=== PATIENT | male | born 1975 | race Caucasian/White ===

== ENCOUNTER 2018-01-15 00:53 | Emergency (ER) | payer MEDICARE, SELFPAY ==
[2018-01-15 00:56] VITALS: BP 153/97; PULSE 70; RESP 17; TEMP 36.5; O2SAT 98; BMI 24.7
--- NOTE | 2018-01-15 01:05 | CT_ITS ---
STUDY: CT BRAIN WITHOUT CONTRAST REASON FOR EXAM: Male, 42 years old. Trauma RADIATION DOSAGE (If Supplied By Facility): CTDIvol = ( 44.99 ) mGy, DLP = ( 812.98 ) mGycm TECHNIQUE: Transaxial CT imaging of the brain was performed without administration of intravenous contrast material. Individualized dose optimization techniques were used for this CT. COMPARISON: None. FINDINGS: Normal soft tissue structures. Normal calvarium. Normal size ventricles and extra-axial spaces for the patient's age. Normal white matter tracts of the cerebral hemispheres. Normal basal ganglia and thalami. Normal brainstem. Normal cerebellum. There is no intracranial hemorrhage. There are no findings of an acute ischemic infarction. Normal visualized paranasal sinuses. CT/Brain/Head without Contrast IMPRESSION: Normal unenhanced CT scan of the brain. No acute findings in the brain Electronically Signed: Elliott Craft, at 2:47 EDT Tel , Service support ,
--- NOTE | 2018-01-15 01:06 | ED.VIS.GEN ---
History of Present Illness Chief Complaint: Head Injury Informant: Family Limited: - - nonverbal Onset: Hours - 1 Narrative: Family states patient tripped going down some steps, he hit his head on a metal air vent grade, sustaining a laceration to the right temporal scalp. There was no loss of consciousness. No headache, vomiting. Patient denies any significant pain right now. No other apparent injuries. Per parents, at baseline mental status at this time. Last tetanus shot was less than 5 yrs ago. No seizure activity today, or after injury tonight. - Past Medical History (1) Seizure disorder Status: Acute Past Medical History - Allergies and Home Meds Allergies/Adverse Reactions: Allergies No Known Allergies Allergy (Verified 01/15/18 00:54) Home Medications: Home Medications Medication Instructions Recorded Divalproex Sodium [Depakote] 1,000 mg PO DAILY 01/04/14 Divalproex Sodium [Depakote] 1,500 mg PO QHS 01/04/14 Klonopin 0.5 mg PO BID 01/04/14 Phenobarbital 30 mg PO BID 01/04/14 Atenolol 50 mg PO BID 01/15/18 Levothyroxine PO DAILY 01/15/18 Primary Care Physician: Parvin Callahan MD [Primary Care Provider] - Lives: With Family Smoking Status: Never smoker Review of Systems ROS: Unable to Obtain Skin: Reports: Wounds - right scalp laceration Physical Exam Vital Signs/Narrative: Vital Signs Temp Pulse Resp BP Pulse Ox 01/15/18 00:56 97.7 F L 70 17 153/97 H 98 Inital Vital Signs reviewed: Yes General: Well nourished, Well developed Head: Normocephalic, Trauma - R temporal scalp/forehead laceration, full thickness to periosteum, approx 7cm. clean. minimal bleeding. no skull fx or crepitance/depression., Tenderness - at laceration Eyes: Perrl, EOMI ENT: Moist mucous membranes, TM's clear. Negative for: Sinus tenderness - midface stable` Cardiovascular: Regular rate, Regular rhythm, No murmurs Respiratory: No distress, CTA bilaterally, Chest nontender Abdomen: Soft, Nontender, Nondistended, Normal bowel sounds Back: Nontender, Normal Inspection Extremities: Nontender, No edema, - - FROM x all 4 ext's w/o apparent pain Skin: Normal color, Trauma - R scalp/forehead laceration. see HEENT. Neurological: Alert, Cranial nerves II-XII grossly intact, Normal Strength, Normal Sensation, Normal Gait, - - nonverbal Psychological: Normal affect Diagnostic/Tx/Re-eval Impressions Brain CT 01/15/18 01:05 IMPRESSION: Normal unenhanced CT scan of the brain. No acute findings in the brain Electronically Signed: Elliott Craft, at 2:47 EDT Tel , Service support , - Medical Decision Making Patient remained clinically at baseline and did well without vomiting. CT unremarkable for acute injury. Laceration was repaired, patient tolerated well. Advised follow-up in about 1 week for removal of sutures and deep. Procedures - Lacerations R scalp/forehead Length: 7 cm Depth: Sub Q Shape: Linear - curvilinear, clean Prep: Sterile Conditions, Chlorhexadine Laceration Repair: Lidocaine with epi - 5cc. irrigated w/ sterile NS under pressure. Irrigated (ml): 60 Number of Sutures/[place]: 10 - total Suture Information: Simple, 5-0 - #5, - - skin deep #5 Comment: tolerated well. ED Disposition - Plan for ED Patient: Disposition: Home or Assisted Living Chief Complaint: Head Injury Diagnosis: Closed head injury without concussion, Scalp laceration Instructions: ED Head Injury Closed, ED Laceration Scalp Stitch Or Stap Referrals: Parvin Callahan MD [Primary Care Provider] - 7 Days for suture removal
--- NOTE | 2018-01-15 01:13 | ED.DCSUM_ITS ---
History of Present Illness Chief Complaint: Head Injury Informant: Family Limited: - - nonverbal Onset: Hours - 1 Narrative: Family states patient tripped going down some steps, he hit his head on a metal air vent grade, sustaining a laceration to the right temporal scalp. There was no loss of consciousness. No headache, vomiting. Patient denies any significant pain right now. No other apparent injuries. Per parents, at baseline mental status at this time. Last tetanus shot was less than 5 yrs ago. No seizure activity today, or after injury tonight. - Past Medical History (1) Seizure disorder Status: Acute Past Medical History - Allergies and Home Meds Allergies/Adverse Reactions: Allergies No Known Allergies Allergy (Verified 01/15/18 00:54) Home Medications: Home Medications Medication Instructions Recorded Divalproex Sodium [Depakote] 1,000 mg PO DAILY 01/04/14 Divalproex Sodium [Depakote] 1,500 mg PO QHS 01/04/14 Klonopin 0.5 mg PO BID 01/04/14 Phenobarbital 30 mg PO BID 01/04/14 Atenolol 50 mg PO BID 01/15/18 Levothyroxine PO DAILY 01/15/18 Primary Care Physician: Parvin Callahan MD [Primary Care Provider] - Lives: With Family Smoking Status: Never smoker Review of Systems ROS: Unable to Obtain Skin: Reports: Wounds - right scalp laceration Physical Exam Vital Signs/Narrative: Vital Signs Temp Pulse Resp BP Pulse Ox 01/15/18 00:56 97.7 F L 70 17 153/97 H 98 Inital Vital Signs reviewed: Yes General: Well nourished, Well developed Head: Normocephalic, Trauma - R temporal scalp/forehead laceration, full thickness to periosteum, approx 7cm. clean. minimal bleeding. no skull fx or crepitance/depression., Tenderness - at laceration Eyes: Perrl, EOMI ENT: Moist mucous membranes, TM's clear. Negative for: Sinus tenderness - midface stable` Cardiovascular: Regular rate, Regular rhythm, No murmurs Respiratory: No distress, CTA bilaterally, Chest nontender Abdomen: Soft, Nontender, Nondistended, Normal bowel sounds Back: Nontender, Normal Inspection Extremities: Nontender, No edema, - - FROM x all 4 ext's w/o apparent pain Skin: Normal color, Trauma - R scalp/forehead laceration. see HEENT. Neurological: Alert, Cranial nerves II-XII grossly intact, Normal Strength, Normal Sensation, Normal Gait, - - nonverbal Psychological: Normal affect Diagnostic/Tx/Re-eval Impressions Brain CT 01/15/18 01:05 IMPRESSION: Normal unenhanced CT scan of the brain. No acute findings in the brain Electronically Signed: Elliott Craft, at 2:47 EDT Tel , Service support , - Medical Decision Making Patient remained clinically at baseline and did well without vomiting. CT unremarkable for acute injury. Laceration was repaired, patient tolerated well. Advised follow-up in about 1 week for removal of sutures and deep. Procedures - Lacerations R scalp/forehead Length: 7 cm Depth: Sub Q Shape: Linear - curvilinear, clean Prep: Sterile Conditions, Chlorhexadine Laceration Repair: Lidocaine with epi - 5cc. irrigated w/ sterile NS under pressure. Irrigated (ml): 60 Number of Sutures/[place]: 10 - total Suture Information: Simple, 5-0 - #5, - - skin deep #5 Comment: tolerated well. ED Disposition - Plan for ED Patient: Disposition: Home or Assisted Living Chief Complaint: Head Injury Diagnosis: Closed head injury without concussion, Scalp laceration Instructions: ED Head Injury Closed, ED Laceration Scalp Stitch Or Stap Referrals: Parvin Callahan MD [Primary Care Provider] - 7 Days for suture removal
[2018-01-15] MEDS: BACITRACIN 15 GM Tube 1 APPLIC TOPICAL (02:26)
[2018-01-15 03:38] VITALS: BP 119/77; PULSE 66; RESP 15
== END 2018-01-15 04:04 | disposition home or self-care (01) ==
PROVIDERS: Emergency Provider Emergency Medicine; Family Provider Internal Medicine; PCP Internal Medicine
DX: S01.01XA Laceration without foreign body of scalp, initial encounter (principal); S09.90XA Unspecified injury of head, initial encounter; W10.9XXA Fall (on) (from) unspecified stairs and steps, initial encounter; Y93.9 Activity, unspecified; Y92.9 Unspecified place or not applicable; G40.909 Epilepsy, unspecified, not intractable, without status epilepticus; Z79.899 Other long term (current) drug therapy
CPT/HCPCS: 12002; 70450; 99283

== ENCOUNTER → 2018-07-08 15:48 | Outpatient (CLI) | payer MEDICARE, SELFPAY ==
[2018-07-08 17:23] LABS: AST(SGOT) 16 U/L (15-37); Alanine Aminotransfer ALT/SGPT 21 U/L (16-61); Albumin, Serum 3.3 g/dL (3.2-5.0); Alkaline Phosphatase 68 U/L (45-117); Anion Gap 11 (5-15); BUN 11 mg/dL (7-18); BUN/Creat Ratio 14.2 RATIO (10-20); Bilirubin, Direct 0.06 mg/dL (0.00-0.30); Calcium,Total 8.5 mg/dL (8.5-10.1); Chloride 106 mmol/L (98-107); Creatinine, Serum 0.77 mg/dL (0.70-1.30); EST Glomerular Filtration Rate 117 mL/min (>60); Est Glom Filt Rate - Afr Amer 142 mL/min (>60); Globulin 4.4 g/dL (2.2-4.2); Glucose 103 mg/dL (74-106); Magnesium 1.8 mg/dL (1.6-2.6); Phosphorus 1.7 mg/dL (2.5-4.9); Potassium 4.3 mmol/L (3.5-5.1); Protein, Total 7.7 g/dL (6.4-8.2); Sodium Level 140 mmol/L (136-145)
[2018-07-08 17:25] LABS: Valproic Acid (Depakene) Level 100 ug/mL (50-100)
== END ==
PROVIDERS: Family Provider Internal Medicine; PCP Internal Medicine; Referring Provider Nurse Practitioner Acute Care; Visit Provider Nurse Practitioner Acute Care
DX: R56.9 Unspecified convulsions (principal)
CPT/HCPCS: 36415; 80048; 80076; 80164; 80184; 82140; 83735; 84100

== ENCOUNTER → 2018-08-08 13:26 | Outpatient (CLI) | payer MEDICARE, SELFPAY | PROVIDERS: Family Provider Internal Medicine; PCP Internal Medicine; Referring Provider Clinical Nurse Specialist Acute Care; Visit Provider Clinical Nurse Specialist Acute Care | DX: R56.9 Unspecified convulsions (principal) | CPT/HCPCS: 36415; 82140 ==

== ENCOUNTER → 2019-03-30 | Outpatient (CLI) | payer MEDICARE, SELFPAY ==
[2019-03-23 16:04] VITALS: BMI 22.4
--- NOTE | 2019-03-30 16:49 | CT_ITS ---
HISTORY: Marfan syndrome, enlarged aorta, intermittent chest pain COMPARISON: None. TECHNIQUE: Helical CT axial images of the thorax with 100 ml of Isovue 300 intravenous contrast. Multiplanar reconstruction. A radiation dose optimization technique was used for this scan. # of images incl. paperwork: 500 FINDINGS: LUNGS: The lung parenchyma is clear. No pulmonary masses or suspicious nodules. MEDIASTINUM: No abnormally enlarged mediastinal or hilar lymph nodes. PLEURA: No pleural effusion. No pneumothorax. CARDIAC: Normal heart size. No pericardial effusion. VASCULAR: The aortic root is dilated measuring 5.1 cm. No dissection of the aortic root. Ascending aorta is normal in caliber measuring 3.3 cm. Aortic arch and descending thoracic aorta are normal in caliber. No dissection. The pulmonary vasculature demonstrates no significant dilatation. CHEST WALL: Chest wall is intact. No abnormal axillary lymphadenopathy. BONES: No suspicious osseous lytic or blastic lesions seen. UPPER ABDOMEN: The visualized upper abdomen demonstrates no acute abnormality. CT/Chest WITH Contrast IMPRESSION: 1. Dilated aortic root measuring 5.1 cm without dissection. 2. Remainder of the thoracic aorta is normal in caliber without dilatation, aneurysm or dissection. 3. No acute cardiopulmonary disease. Individualized dose optimization techniques were used for this CT. at 2003 Reported and signed by: Dhaval Redding MD Electronically Signed: Dhaval Redding MD at 20:01 EDT Tel , Service support ,
== END | disposition home or self-care (01) ==
PROVIDERS: Family Provider Internal Medicine; PCP Internal Medicine; Referring Provider Internal Medicine Cardiovascular Disease; Visit Provider Internal Medicine Cardiovascular Disease
DX: Q87.410 Marfan syndrome with aortic dilation (principal)
CPT/HCPCS: 71260; Q9967

== ENCOUNTER → 2019-04-13 | Outpatient (CLI) | payer MEDICARE, SELFPAY ==
[2019-03-23 16:04] VITALS: BMI 22.4
--- NOTE | 2019-04-13 14:48 | ECHOD_ITS ---
Reason For Study: THORACIC AA Procedure This was a 2D Doppler, Color Flow transthoracic echocardiogram. The study was technically difficult. Exam performed in department. Left Ventricle Normal LV size. Left ventricular systolic function is normal. The estimated ejection fraction is 60 %. Transmitral doppler flow suggestive of impaired relaxation of left ventricle. No regional wall motion abnormalities noted. Right Ventricle Normal RV size. Normal systolic function. Atria Normal left atrium. Normal right atrium. No doppler evidence for ASD. Mitral Valve There is no mitral annular calcification. Moderate diffuse mitral valve thickening. Mild mitral valve prolapse. Mild (1+) mitral valve insufficiency. Tricuspid Valve Normal tricuspid valve. Mild tricuspid valve insufficiency. Right ventricular systolic pressure estimated to be 17 mmHg. Aortic Valve Trisinus/trileaflet aortic valve. Normal aortic valve. Trivial aortic valve insufficiency. Pulmonic Valve The pulmonic valve is not well visualized. Trivial pulmonic valve insufficiency. Great Vessels Moderately dilated aortic root. Pericardium/Pleural No pericardial effusion. MMode/2D Measurements & Calculations LVIDd: 4.7 cm IVSd: 0.58 cm Ao root diam: 3.4 cm LVIDs: 3.2 cm LVPWd: 0.77 cm RVDd: 3.3 cm FS: 32.3 % LAV(MOD-bp): 38.3 ml LVAd ap4: 34.4 cm2 SV(MOD-sp4): 62.3 ml LAV(MOD-bp) Indexed: 18.7 ml/m2 EDV(MOD-sp4): 111.2 ml LAV(MOD-sp2): 40.3 ml EDV(sp4-el): 116.3 ml LAV(MOD-sp4): 34.6 ml LVAs ap4: 20.4 cm2 ESV(MOD-sp4): 48.9 ml ESV(sp4-el): 49.2 ml EF(MOD-sp4): 56.0 % EF(sp4-el): 57.7 % SV(sp4-el): 67.1 ml LA A4 area: 13.9 cm2 LA dimension(2D): 3.2 cm RA A4 area: 12.8 cm2 Time Measurements MV dec time: 0.32 sec Doppler Measurements & Calculations MV E max kev: 49.6 cm/sec Lat Peak E' Kev: 6.7 cm/sec Med Peak E' Kev: 4.6 cm/sec MV A max kev: 61.9 cm/sec E/E' lat: 7.4 E/E' med: 10.8 MV E/A: 0.80 Ao V2 max: 107.3 cm/sec LV V1 max: 87.7 cm/sec PA V2 max: 83.6 cm/sec Ao max P.6 mmHg LV V1 max P.1 mmHg PI end-d kev: 82.0 cm/sec TR max kev: 185.7 cm/sec TR max P.8 mmHg Interpretation Summary The study was technically difficult. Left ventricular systolic function is normal. The estimated ejection fraction is 60 %. Mild mitral valve prolapse. Moderate diffuse mitral valve thickening. Mild (1+) mitral valve insufficiency. Mild tricuspid valve insufficiency. Trivial aortic valve insufficiency. Trivial pulmonic valve insufficiency. Moderately dilated aortic root. Right ventricular systolic pressure estimated to be 17 mmHg. Transmitral doppler flow suggestive of impaired relaxation of left ventricle Ordering Physician: Phoenix Pierre Referring Physician: SRAANYA CASPER Performed By: Vika Pantoja, RDCS, RVT
== END | disposition home or self-care (01) ==
LOC: CVS 14:47
PROVIDERS: Family Provider Internal Medicine; PCP Internal Medicine; Referring Provider Internal Medicine Cardiovascular Disease; Visit Provider Internal Medicine Cardiovascular Disease
DX: Q87.410 Marfan syndrome with aortic dilation (principal)
CPT/HCPCS: 93306

== ENCOUNTER 2019-06-21 22:53 | Emergency (ER) | payer MEDICARE, SELFPAY ==
[2019-03-23 16:04] VITALS: BMI 22.4
[2019-06-21 22:54] VITALS: BP 107/71; PULSE 101; RESP 18; TEMP 36.6; O2SAT 95; BMI 26.6
--- NOTE | 2019-06-21 23:22 | RAD_ITS ---
STUDY: X-RAY CHEST REASON FOR EXAM: Male, 43 years old. Fever and chills. TECHNIQUE: Single AP portable view of the chest. COMPARISON: CT of the chest dated March 30, 2019. FINDINGS: The lungs are clear and expanded. There is no demonstrated pleural abnormality. Normal size heart. Normal mediastinum and matthew. Normal visualized pulmonary arteries. Normal visualized aortic arch and descending thoracic aorta. Normal visualized thoracic spine. There is deformity of the right clavicle with widening of the right acromion clavicular joint suggesting possible sequelae of previous fracture and acromioclavicular joint separation. There is no demonstrated abnormality of the visualized soft tissue structures of the upper abdomen. RAD/Chest 1 View (Portable) IMPRESSION: No radiographic evidence of acute cardiopulmonary disease. Electronically Signed: Yola Foster MD at 0:28 EDT , Service support ,
--- NOTE | 2019-06-21 23:23 | ED.VIS.GEN ---
History of Present Illness Chief Complaint: General Illness Informant: Family Onset: Today Narrative: Brought by EMS from home, parents are here, history of disability physically and mentally. History of seizure disorder on medications. Mother reports check on patient is evening he was shaking all over, she denies any cough. No recent vomiting or diarrhea. He wears depends pads, however can urinate and in the past was able to give samples. Unclear if any UTIs in the past. States he felt warm. Mother reports he communicates when he wants to. Past Medical History - Allergies and Home Meds Allergies/Adverse Reactions: Allergies No Known Allergies Allergy (Verified 06/21/19 22:59) Primary Care Physician: Parvin Callahan MD [Primary Care Provider] - Smoking Status: Never smoker Review of Systems General: Reports: Chills, Fever. Denies: Sweats Eyes: Denies: Visual changes - bilaterally, Diplopia ENT: Denies: Rhinorrhea, Sore throat Cardiovascular: Denies: Chest pain, Palpitations Respiratory: Denies: Dyspnea, Cough, Dyspnea on exertion Gastrointestinal: Denies: Abdominal pain, Nausea, Vomiting, Diarrhea, Melena, Hematochezia Genitourinary: Denies: Dysuria, Hematuria, Frequency Musculoskeletal: Denies: Back pain, Extremity Pain Skin: Denies: Rash, Wounds Neurological: Denies: Headache, Weakness, Numbness Physical Exam Vital Signs/Narrative: Vital Signs Temp Pulse Resp BP Pulse Ox 06/21/19 22:54 97.8 F 101 H 18 107/71 95 Inital Vital Signs reviewed: Yes General: Unkempt, - - Nontoxic, moving all 4 extremities, not communicating at this time. Head: Normocephalic, Atraumatic ENT: Dry mucous membranes Cardiovascular: Regular rate, No murmurs, Tachycardia Respiratory: No distress, CTA bilaterally Abdomen: Soft, Nontender, Nondistended Extremities: Nontender, - - Minimal lower extremity edema with stockings. Skin: Normal color, No rash Neurological: - - Follows commands, moves all 4 extremities. Diagnostic/Tx/Re-eval Clinical Impression(s) from Imaging Studies Chest X-Ray 06/21/19 23:22 IMPRESSION: No radiographic evidence of acute cardiopulmonary disease. Electronically Signed: Yola Foster MD at 0:28 EDT , Service support , Abnormal Lab Results 06/22/19 06/22/19 06/22/19 00:00 00:00 01:10 WBC 7.8 RBC 4.43 L Hgb 14.6 Hct 42.1 MCV 95.0 H MCH 33.0 H MCHC 34.7 RDW Std Deviation 42.9 RDW Coeff of Bel 12.4 Plt Count 184 MPV 10.1 Immature Gran % (Auto) 0.500 Neut % (Auto) 87.7 H Lymph % (Auto) 6.3 L [place] % (Auto) 5.1 Eos % (Auto) 0.1 Baso % (Auto) 0.3 Absolute Neuts (auto) 6.9 Absolute Lymphs (auto) 0.49 L Nucleated RBC % 0 Sodium 138 Potassium 3.9 Chloride 106 Carbon Dioxide 27.0 Anion Gap 5 BUN 9 Creatinine 0.74 Estim Creat Clear Calc 134.27 Est GFR (MDRD) Af Amer 148 Est GFR (MDRD) Non-Af 123 BUN/Creatinine Ratio 12.1 Glucose 95 Calcium 8.4 L Urine Color Yellow Urine Clarity Clear Urine pH 8.0 Ur Specific [place] 1.010 Urine Protein Negative Urine Glucose (UA) Normal Urine Ketones 5 H Urine Occult Blood 25 H Urine Nitrite Positive H Urine Bilirubin Negative Urine Urobilinogen Normal Ur Leukocyte Esterase 25 H Urine RBC 0-5 SEEN Urine WBC 0-5 SEEN Ur Squamous Epith Cells 0 SEEN Urine Bacteria 1+ Urine Mucus 0 SEEN - Medical Decision Making Patient nontoxic vital stable. History of disability. Due to his chills, labs obtained which was normal. Chest x-ray negative. Urine cath specimen noted infection culture sent. He is given Rocephin in the ED. 10 days of antibiotics. Follow-up with PCP. Signs and symptoms discussed return with parents. All questions were answered. ED Disposition - Plan for ED Patient: Disposition: Home or Assisted Living Diagnosis: Urinary tract infection Instructions: Understanding Urinary Tract Infections (UTIs) Prescriptions: Cephalexin [Keflex] 500 mg PO Q12 #20 capsule Referrals: Parvin Callahan MD [Primary Care Provider] - 5-7 Days
[2019-06-21] MEDS: 0.9% Normal Saline 1,000 ML 1000 ML IV (23:51)
[2019-06-21] MEDS: Acetaminophen 500 MG Tablet 1000 MG PO (23:51)
[2019-06-22 00:06] LABS: Absolute Lymphocyte Count 0.49 X10^3/uL (0.83-4.51); Absolute Neutrophil Count 6.9 X10^3/uL (2.0-7.7); Basophil# 0.02 X10^3/uL; Basophil% 0.3 % (0-1); Eosinophil# 0.01 X10^3/uL; Eosinophils% 0.1 % (0-5); Hematocrit 42.1 % (40-54); Hemoglobin 14.6 g/dL (13.0-16.5); Lymphocyte # 0.49 X10^3/ul (4.0); Lymphocyte % 6.3 % (19-41); Mean Corp Hgb Conc 34.7 g/dL (32-36); Mean Platelet Vol. 10.1 fl (6.2-12.0); Monocyte% 5.1 % (0-10); NRBC Flagged by Analyzer 0 % (0-5); Neutrophil # 6.88 X10^3/uL (2.7-7.7); Neutrophil % 87.7 % (47-70); POSITIVE DIFFERENTIAL YES; Platelet Count 184 K/mm3 (150-450); RBC Distribution Width CV 12.4 % (11.6-14.6); RBC Distribution Width SD 42.9 fl (35.1-43.9); Red Blood Count 4.43 M/mm3 (4.6-6.2); White Blood Count 7.8 K/mm3 (4.4-11.0)
[2019-06-22 00:07] LABS: Differential Indicated SCAN CRITERIA MET
[2019-06-22 00:26] LABS: Anion Gap 5 (5-15); BUN 9 mg/dL (7-18); BUN/Creat Ratio 12.1 RATIO (10-20); Calcium,Total 8.4 mg/dL (8.5-10.1); Chloride 106 mmol/L (98-107); Creatinine, Serum 0.74 mg/dL (0.70-1.30); EST Glomerular Filtration Rate 123 mL/min (>60); Est Glom Filt Rate - Afr Amer 148 mL/min (>60); Estimated Creatinine Clearance 134.27 ml/min; Glucose 95 mg/dL (74-106); Potassium 3.9 mmol/L (3.5-5.1); Sodium Level 138 mmol/L (136-145)
[2019-06-22 01:16] LABS: Mucous, Urine 0 SEEN /hpf (<or=2+); Squamous Epithelial Cells - UA 0 SEEN /hpf (0-5)
[2019-06-22 01:20] LABS: Color, Urine Yellow (Yellow); Glucose, Dipstick Normal (Normal); Ketone-Dipstick 5 mg/dl (Negative); Leukocyte Esterase-Dipstick 25 /ul (Negative); Nitrite-Dipstick Positive (Negative); Occult Blood-Urine 25 /ul (Negative); Protein-Dipstick Negative (Negative); Urine Bilirubin Dipstick Negative (Negative); Urine Clarity Clear (Clear); Urine Urobilinogen Normal (Normal)
[2019-06-22 01:29] LABS: Bacteria 1+ /hpf (None Seen); Red Blood Cells-Urine 0-5 SEEN /hpf (0-5); White Blood Cells 0-5 SEEN /hpf (0-5)
[2019-06-22 01:36] VITALS: BP 107/95
[2019-06-22] MEDS: Ceftriaxone 1 GM/50 ML BAG IV (01:53)
[2019-06-22 01:55] VITALS: BP 105/71; PULSE 76; RESP 18; TEMP 36.9; O2SAT 91
== END 2019-06-22 02:17 | disposition home or self-care (01) ==
PROVIDERS: Emergency Provider Emergency Medicine; Family Provider Internal Medicine; PCP Internal Medicine
DX: N39.0 Urinary tract infection, site not specified (principal); R60.0 Localized edema; G40.909 Epilepsy, unspecified, not intractable, without status epilepticus; Z79.899 Other long term (current) drug therapy
CPT/HCPCS: 71045; 80048; 81001; 85025; 87086; 87088; 87186; 96361; 96365; 99285; J7030; P9612; A4216

== ENCOUNTER → 2020-02-28 14:00 | Outpatient (CLI) | payer MEDICARE, MEDICAID, SELFPAY ==
[2019-10-05 13:25] VITALS: BMI 25.9
[2020-02-28 14:30] LABS: Hematocrit 42.1 % (40-54); Hemoglobin 14.3 g/dL (13.0-16.5); Mean Corpuscular Hgb 32.4 pg (27.0-32.0); Mean Corpuscular Volume 95.2 fL (80-94); Mean Platelet Vol. 10.2 fl (6.2-12.0); Platelet Count 272 K/mm3 (150-450); RBC Distribution Width CV 12.7 % (11.6-14.6); Red Blood Count 4.42 M/mm3 (4.6-6.2); White Blood Count 7.8 K/mm3 (4.4-11.0)
[2020-02-28 15:50] LABS: ALB/GLOB Ratio 0.8 RATIO (0.9-2.4); AST(SGOT) 9 U/L (15-37); Alanine Aminotransfer ALT/SGPT 16 U/L (16-61); Albumin, Serum 3.5 g/dL (3.2-5.0); Alkaline Phosphatase 69 U/L (45-117); Anion Gap 9 (5-15); BUN 13 mg/dL (7-18); BUN/Creat Ratio 15.5 RATIO (10-20); Calcium,Total 8.7 mg/dL (8.5-10.1); Chloride 105 mmol/L (98-107); Creatinine, Serum 0.84 mg/dL (0.70-1.30); EST Glomerular Filtration Rate 106 mL/min (>60); Est Glom Filt Rate - Afr Amer 128 mL/min (>60); Globulin 4.5 g/dL (2.2-4.2); Glucose 100 mg/dL (74-106); Sodium Level 138 mmol/L (136-145)
[2020-02-28 17:34] LABS: Valproic Acid (Depakene) Level 117 ug/mL (50-100)
[2020-03-05 04:50] LABS: Clonazepam Level < 5 ng/mL (20-70)
== END ==
PROVIDERS: PCP Internal Medicine; Referring Provider Psychiatry & Neurology Neurology; Visit Provider Psychiatry & Neurology Neurology
DX: G40.909 Epilepsy, unspecified, not intractable, without status epilepticus (principal)
CPT/HCPCS: 36415; 80053; 80164; 80184; 80346; 85027; G0480

== ENCOUNTER 2020-04-24 12:36 | Inpatient (IN) | payer MEDICARE, MEDICAID, SELFPAY ==
[2019-10-05 13:25] VITALS: BMI 25.9
[2020-04-24] VITALS (24 sets, daily range): BP systolic 95–190; BP diastolic 57–170; PULSE 10–115; RESP 2–35; TEMP 37.6–39.7; O2SAT 92–99; BMI 26.6; BMI 26.8
--- NOTE | 2020-04-24 12:50 | ED.DCSUM_ITS ---
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 Patient's mother had called the emergency room and stated that he was not getting taking care of at home. He was covered in urine. The fever. Apparently there is bedbugs in the house. Patient is unable to communicate this time. I do not know this is his baseline. EMS reports that the patient does have the ability to stand. He is not able to stand today. He is holding his knees and legs up while laying supine. Past Medical History - Allergies and Home Meds Allergies/Adverse Reactions: Allergies No Known Allergies Allergy (Verified 10/05/19 14:08) Prior records reviewed: Yes Past Medical History: - - Epilepsy, Marfan syndrome Smoking Status: Never smoker Drugs: - - Unknown - Family History Maternal Family History: Family History (Last Reviewed 04/24/20 @ 16:[address] Alexis Murray MD) Mother Hypertension Marfans syndrome Uncle Marfans syndrome Ruptured, aorta Uncle Marfans syndrome Ruptured, aorta Family History: Reports: Unknown Paternal Family History: Family History (Last Reviewed 04/24/20 @ 16:[address] Alexis Murray MD) Mother Hypertension Marfans syndrome Uncle Marfans syndrome Ruptured, aorta Uncle Marfans syndrome Ruptured, aorta Family History: Reports: Unknown Review of Systems ROS: Unable to Obtain All systems negative except as indicated Physical Exam Vital Signs/Narrative: Vital Signs Temp Pulse Resp BP Pulse Ox 04/24/20 12:41 103.3 F H 115 H 22 H 190/170 H 94 04/24/20 12:37 103.3 F H 115 H 22 H 190/170 H 94 General: Unkempt, - - Patient does not communicate. Head: Normocephalic Eyes: Perrl ENT: Dry mucous membranes Cardiovascular: Tachycardia Respiratory: No distress Abdomen: - - Apparently tender. Extremities: Edema - Bilateral feet, - - Not apparently tender. Skin: Normal color Neurological: - - Patient is awake but is nonverbal. He does not follow commands. Diagnostic/Tx/Re-eval Clinical Impression(s) from Imaging Studies Chest X-Ray 04/24/20 12:52 IMPRESSION: Normal x-ray examination of the chest. Electronically Signed: Pravin Elias, at 14:09 EDT , Service support , Brain CT 04/24/20 13:01 IMPRESSION: Normal unenhanced CT scan of the brain. Electronically Signed: Pravin Elias, at 14:08 EDT , Service support , Cervical Spine CT 04/24/20 13:01 IMPRESSION: Degenerative changes, as described above. Electronically Signed: Pravin Elias, at 14:08 EDT , Service support , Laboratory Data 04/24/20 04/24/20 04/24/20 12:55 12:55 12:55 WBC 9.2 RBC 4.56 L Hgb 14.8 Hct 43.8 MCV 96.1 H MCH 32.5 H MCHC 33.8 RDW Std Deviation 43.5 RDW Coeff of Bel 12.3 Plt Count 261 MPV 10.8 Immature Gran % (Auto) 0.400 Neut % (Auto) 94.3 H Lymph % (Auto) 2.[address] [place] % (Auto) 1.1 Eos % (Auto) 1.1 Baso % (Auto) 0.3 Absolute Neuts (auto) 8.7 H Absolute Lymphs (auto) 0.26 L Nucleated RBC % 0 Differential Comment COMMENT PT 14.1 INR 1.1 APTT 26.0 Sodium 144 Potassium 3.5 Chloride 109 H Carbon Dioxide 26.0 Anion Gap 9 BUN 12 Creatinine 1.38 H Estim Creat Clear Calc 66.78 Est GFR (MDRD) Af Amer 72 Est GFR (MDRD) Non-Af 60 BUN/Creatinine Ratio 8.7 L Glucose 118 H Lactic Acid Calcium 8.8 Total Bilirubin 0.50 AST 40 H ALT 26 Alkaline Phosphatase 80 Troponin I Total Protein 8.3 H Albumin 3.3 Globulin 5.0 H Albumin/Globulin Ratio 0.7 L TSH Urine Color Urine Clarity Urine pH Ur Specific [place] U Specif Grav (Refrac) Urine Protein Urine Glucose (UA) Urine Ketones Urine Occult Blood Urine Nitrite Urine Bilirubin Urine Urobilinogen Ur Leukocyte Esterase Urine RBC Urine WBC Ur Squamous Epith Cells Ur Transition Epith Cell Ur Renal Epithelial Cell Calcium Oxalate Crystal Uric Acid Crystals Triple Phos Crystals Other Crystals Amorphous Sediment Urine Bacteria Hyaline Casts Fine Granular Casts Coarse Granular Casts Waxy Casts RBC Casts WBC Casts Urine Mucus Urine Trichomonas Urine Yeast Urine Opiates Screen Urine Methadone Screen Ur Barbiturates Screen Valproic Acid Ur Phencyclidine Scrn Ur Amphetamines Screen U Methamphetamin-MDMA U Benzodiazepines Scrn Urine Cocaine Screen U Cannabinoids Screen Ur Drug Screen Comment Ethyl Alcohol COVID-19 ([facility]) 04/24/20 04/24/20 04/24/20 12:55 12:55 12:55 WBC RBC Hgb Hct MCV MCH MCHC RDW Std Deviation RDW Coeff of [place] Plt Count MPV Immature Gran % (Auto) Neut % (Auto) Lymph % (Auto) [place] % (Auto) Eos % (Auto) Baso % (Auto) Absolute Neuts (auto) Absolute Lymphs (auto) Nucleated RBC % Differential Comment PT INR APTT Sodium Potassium Chloride Carbon Dioxide Anion Gap BUN Creatinine Estim Creat Clear Calc Est GFR (MDRD) Af Amer Est GFR (MDRD) Non-Af BUN/Creatinine Ratio Glucose Lactic Acid 4.7 H* Calcium Total Bilirubin AST ALT Alkaline Phosphatase Troponin I Total Protein Albumin Globulin Albumin/Globulin Ratio TSH Urine Color Urine Clarity Urine pH Ur Specific [place] U Specif Grav (Refrac) Urine Protein Urine Glucose (UA) Urine Ketones Urine Occult Blood Urine Nitrite Urine Bilirubin Urine Urobilinogen Ur Leukocyte Esterase Urine RBC Urine WBC Ur Squamous Epith Cells Ur Transition Epith Cell Ur Renal Epithelial Cell Calcium Oxalate Crystal Uric Acid Crystals Triple Phos Crystals Other Crystals Amorphous Sediment Urine Bacteria Hyaline Casts Fine Granular Casts Coarse Granular Casts Waxy Casts RBC Casts WBC Casts Urine Mucus Urine Trichomonas Urine Yeast Urine Opiates Screen Urine Methadone Screen Ur Barbiturates Screen Valproic Acid 90 Ur Phencyclidine Scrn Ur Amphetamines Screen U Methamphetamin-MDMA U Benzodiazepines Scrn Urine Cocaine Screen U Cannabinoids Screen Ur Drug Screen Comment Ethyl Alcohol 3.0 COVID-19 ([facility]) 04/24/20 04/24/20 04/24/20 12:55 13:15 13:15 WBC RBC Hgb Hct MCV MCH MCHC RDW Std Deviation RDW Coeff of [place] Plt Count MPV Immature Gran % (Auto) Neut % (Auto) Lymph % (Auto) [place] % (Auto) Eos % (Auto) Baso % (Auto) Absolute Neuts (auto) Absolute Lymphs (auto) Nucleated RBC % Differential Comment PT INR APTT Sodium Potassium Chloride Carbon Dioxide Anion Gap BUN Creatinine Estim Creat Clear Calc Est GFR (MDRD) Af Amer Est GFR (MDRD) Non-Af BUN/Creatinine Ratio Glucose Lactic Acid Calcium Total Bilirubin AST ALT Alkaline Phosphatase Troponin I < 0.015 Total Protein Albumin Globulin Albumin/Globulin Ratio TSH 3.44 Urine Color Cancelled Urine Clarity Cancelled Urine pH Cancelled Ur Specific [place] Cancelled U Specif Grav (Refrac) Cancelled Urine Protein Cancelled Urine Glucose (UA) Cancelled Urine Ketones Cancelled Urine Occult Blood Cancelled Urine Nitrite Cancelled Urine Bilirubin Cancelled Urine Urobilinogen Cancelled Ur Leukocyte Esterase Cancelled Urine RBC Cancelled Urine WBC Cancelled Ur Squamous Epith Cells Cancelled Ur Transition Epith Cell Cancelled Ur Renal Epithelial Cell Cancelled Calcium Oxalate Crystal Cancelled Uric Acid Crystals Cancelled Triple Phos Crystals Cancelled Other Crystals Cancelled Amorphous Sediment Cancelled Urine Bacteria Cancelled Hyaline Casts Cancelled Fine Granular Casts Cancelled Coarse Granular Casts Cancelled Waxy Casts Cancelled RBC Casts Cancelled WBC Casts Cancelled Urine Mucus Cancelled Urine Trichomonas Cancelled Urine Yeast Cancelled Urine Opiates Screen NEGATIVE Urine Methadone Screen NEGATIVE Ur Barbiturates Screen POSITIVE H Valproic Acid Ur Phencyclidine Scrn NEGATIVE Ur Amphetamines Screen NEGATIVE U Methamphetamin-MDMA NEGATIVE U Benzodiazepines Scrn NEGATIVE Urine Cocaine Screen NEGATIVE U Cannabinoids Screen NEGATIVE Ur Drug Screen Comment Ethyl Alcohol COVID-19 ([facility]) 04/24/20 04/24/20 13:15 13:19 WBC RBC Hgb Hct MCV MCH MCHC RDW Std Deviation RDW Coeff of [place] Plt Count MPV Immature Gran % (Auto) Neut % (Auto) Lymph % (Auto) [place] % (Auto) Eos % (Auto) Baso % (Auto) Absolute Neuts (auto) Absolute Lymphs (auto) Nucleated RBC % Differential Comment PT INR APTT Sodium Potassium Chloride Carbon Dioxide Anion Gap BUN Creatinine Estim Creat Clear Calc Est GFR (MDRD) Af Amer Est GFR (MDRD) Non-Af BUN/Creatinine Ratio Glucose Lactic Acid Calcium Total Bilirubin AST ALT Alkaline Phosphatase Troponin I Total Protein Albumin Globulin Albumin/Globulin Ratio TSH Urine Color Yellow Urine Clarity Sl. Cloudy Urine pH 6.0 Ur Specific [place] 1.010 U Specif Grav (Refrac) Urine Protein 30 H Urine Glucose (UA) Normal Urine Ketones 50 H Urine Occult Blood 150 H Urine Nitrite Positive H Urine Bilirubin Negative Urine Urobilinogen 1 H Ur Leukocyte Esterase 500 H Urine RBC 0 SEEN Urine WBC 10-25 SEEN Ur Squamous Epith Cells 0-5 SEEN Ur Transition Epith Cell Ur Renal Epithelial Cell Calcium Oxalate Crystal Uric Acid Crystals Triple Phos Crystals Other Crystals Amorphous Sediment Urine Bacteria 1+ Hyaline Casts Fine Granular Casts Coarse Granular Casts Waxy Casts RBC Casts WBC Casts Urine Mucus 0 SEEN Urine Trichomonas Urine Yeast Urine Opiates Screen Urine Methadone Screen Ur Barbiturates Screen Valproic Acid Ur Phencyclidine Scrn Ur Amphetamines Screen U Methamphetamin-MDMA U Benzodiazepines Scrn Urine Cocaine Screen U Cannabinoids Screen Ur Drug Screen Comment Ethyl Alcohol COVID-19 ([facility]) Not Detected - EKG Initial EKG Interpretation: Sinus Rhythm, No Acute Injury Pattern, Sinus Tachycardia - Medical Decision Making Patient presents with fever, tachycardia with delirium. Patient was found febrile by his mom. She states that he had a fever at night and refused this in for fever. She states this morning he was found altered. She does not know if he has had a seizure. She states that at baseline he does walk but does have walking difficulties. She states that at baseline he does talk but does not have meaningful conversation or in-depth detail. He was born this way. Given his vital signs sepsis work-up was initiated. He was given 30 cc/kg. Patient was never hypotensive, hypoxic. His lab work does not show a leukocytosis however his white blood cell count is higher than usual. He is lymphopenic as well. Patient's urinalysis shows UTI. He was initially given Rocephin. COVID swab is negative. Discussed with admitting physician who requested we cover the patient for meningitis with vancomycin and acyclovir in addition to the Rocephin. Occasions were ordered. Discussed admission with the patient's mother who was amenable to this. Impression 1. Altered mental status 2. Septic shock 3. Lactic acidosis 4. UTI ED Disposition - Plan for ED Patient: Disposition: Acute Care Hospital [facility]
--- NOTE | 2020-04-24 12:52 | RAD_ITS ---
STUDY: X-RAY CHEST REASON FOR EXAM: Male, 44 years old. FEVER, urinary issues -- -- pt not able to answer questions TECHNIQUE: Single AP portable view of the chest. COMPARISON: Comparison is made with prior study dated 06/21/2019. FINDINGS: EKG electrodes are seen. The lungs are clear and expanded. There is no demonstrated pleural abnormality. Normal size heart. Normal mediastinum and matthew. Normal visualized pulmonary arteries. Normal visualized aortic arch and descending thoracic aorta. Normal visualized thoracic spine. Normal visualized ribs, clavicles, and shoulders. There is no demonstrated abnormality of the visualized soft tissue structures of the upper abdomen. RAD/Chest 1 View (Portable) IMPRESSION: Normal x-ray examination of the chest. Electronically Signed: Pravin Elias, at 14:09 EDT , Service support ,
--- NOTE | 2020-04-24 12:52 | EKG12_ITS ---
Test Reason : FEVER Blood Pressure : / mmHG Vent. Rate : 114 BPM Atrial Rate : 114 BPM P-R Int : 146 ms QRS Dur : 084 ms QT Int : 310 ms P-R-T Axes : 000 112 160 degrees QTc Int : 427 ms Sinus tachycardia Lateral infarct , age undetermined Abnormal ECG Confirmed by ROSALINE RUIZ ([id number]), sound editor ALPESH MCCABE ([id number]) on 04/29/2020 2:18:14 PM Referred By: KALYANI Confirmed By:ROSALINE RUIZ
[2020-04-24] MEDS: 0.9% Normal Saline 1,000 ML 999 ML IV ×2 (13:00→16:23)
--- NOTE | 2020-04-24 13:01 | CT_ITS ---
STUDY: CT CERVICAL SPINE WITHOUT CONTRAST REASON FOR EXAM: Male, 44 years old. ALTERED MENTAL STATUS. PRIOR CLOSED HEAD INJURY RADIATION DOSAGE (If Supplied By Facility): CTDIvol = ( 27.09 ) mGy, DLP = ( 541.51 ) mGycm TECHNIQUE: High resolution transaxial imaging was performed without contrast material. Sagittal and coronal images were reconstructed. Individualized dose optimization techniques were used for this CT. COMPARISON: None FINDINGS: Normal craniovertebral junction. Normal anterior atlantoaxial articulation. Normal odontoid process. Normal cervical lordosis. Normal vertebral bodies and posterior osseous elements. C2-3: Normal endplates. Normal disc height and morphology. Normal central canal and intervertebral neuroforamina. C3-4: Normal endplates. Normal disc height and morphology. Normal central canal and intervertebral neuroforamina. C4-5: Normal endplates. Normal disc height and morphology. Normal central canal and intervertebral neuroforamina. C5-6: Normal endplates. Normal disc height and morphology. Normal central canal and intervertebral neuroforamina. C6-7: Anterior spondylosis and disc space narrowing. Uncovertebral arthrosis. C7-T1: Normal endplates. Normal disc height and morphology. Normal central canal and intervertebral neuroforamina. Normal visualized soft tissue structures. CT/Spine Cervical without Contras IMPRESSION: Degenerative changes, as described above. Electronically Signed: Pravin Elias, at 14:08 EDT , Service support ,
--- NOTE | 2020-04-24 13:01 | CT_ITS ---
STUDY: CT BRAIN WITHOUT CONTRAST REASON FOR EXAM: Male, 44 years old. ALTERED MENTAL STATUS. PRIOR CLOSED HEAD INJURY RADIATION DOSAGE (If Supplied By Facility): CTDIvol = ( 60.81 ) mGy, DLP = ( 1067.08 ) mGycm TECHNIQUE: Transaxial CT imaging of the brain was performed without administration of intravenous contrast material. Individualized dose optimization techniques were used for this CT. COMPARISON: Comparison is made with prior study dated 01/15/2018. FINDINGS: Normal soft tissue structures. Normal calvarium. Normal size ventricles and extra-axial spaces for the patient''s age. Normal white matter tracts of the cerebral hemispheres. Normal basal ganglia and thalami. Normal brainstem. Normal cerebellum. There is no intracranial hemorrhage. There are no findings of an acute ischemic infarction. Normal visualized paranasal sinuses. CT/Brain/Head without Contrast IMPRESSION: Normal unenhanced CT scan of the brain. Electronically Signed: Pravin Elias, at 14:08 EDT , Service support ,
[2020-04-24 13:10] LABS: Absolute Lymphocyte Count 0.26 X10^3/uL (0.83-4.51); Absolute Neutrophil Count 8.7 X10^3/uL (2.0-7.7); Basophil# 0.03 X10^3/uL; Basophil% 0.3 % (0-1); Eosinophils% 1.1 % (0-5); Hematocrit 43.8 % (40-54); Hemoglobin 14.8 g/dL (13.0-16.5); Lymphocyte # 0.26 X10^3/ul (4.0); Lymphocyte % 2.8 % (19-41); Mean Corp Hgb Conc 33.8 g/dL (32-36); Mean Corpuscular Hgb 32.5 pg (27.0-32.0); Mean Corpuscular Volume 96.1 fL (80-94); Mean Platelet Vol. 10.8 fl (6.2-12.0); Monocyte% 1.1 % (0-10); NRBC Flagged by Analyzer 0 % (0-5); Neutrophil % 94.3 % (47-70); POSITIVE DIFFERENTIAL YES; Platelet Count 261 K/mm3 (150-450); RBC Distribution Width CV 12.3 % (11.6-14.6); RBC Distribution Width SD 43.5 fl (35.1-43.9); Red Blood Count 4.56 M/mm3 (4.6-6.2); White Blood Count 9.2 K/mm3 (4.4-11.0)
[2020-04-24 13:11] LABS: Differential Indicated SCAN CRITERIA MET
[2020-04-24 13:19] LABS: International Normalized Ratio 1.1; Prothrombin Time (Protime)PT. 14.1 SECONDS (11.7-14.9)
--- NOTE | 2020-04-24 13:25 | EKG12_ITS ---
Test Reason : FEVER Blood Pressure : / mmHG Vent. Rate : 114 BPM Atrial Rate : 114 BPM P-R Int : 124 ms QRS Dur : 074 ms QT Int : 306 ms P-R-T Axes : 000 098 123 degrees QTc Int : 421 ms Sinus tachycardia Lateral infarct , age undetermined Abnormal ECG Confirmed by ROSALINE RUIZ ([id number]), editor managing newspaper KEESHA GUTIERREZ ([id number]) on 04/29/2020 4:07:13 PM Referred By: KALYANI Confirmed By:ROSALINE RUIZ
[2020-04-24 13:26] LABS: ALB/GLOB Ratio 0.7 RATIO (0.9-2.4); AST(SGOT) 40 U/L (15-37); Alanine Aminotransfer ALT/SGPT 26 U/L (16-61); Albumin, Serum 3.3 g/dL (3.2-5.0); Alkaline Phosphatase 80 U/L (45-117); Anion Gap 9 (5-15); BUN 12 mg/dL (7-18); BUN/Creat Ratio 8.7 RATIO (10-20); Calcium,Total 8.8 mg/dL (8.5-10.1); Chloride 109 mmol/L (98-107); Creatinine, Serum 1.38 mg/dL (0.70-1.30); EST Glomerular Filtration Rate 60 mL/min (>60); Est Glom Filt Rate - Afr Amer 72 mL/min (>60); Estimated Creatinine Clearance 66.78 ml/min; Glucose 118 mg/dL (74-106); Potassium 3.5 mmol/L (3.5-5.1); Protein, Total 8.3 g/dL (6.4-8.2); Sodium Level 144 mmol/L (136-145)
[2020-04-24] MEDS: Acetaminophen 650 MG Suppository RECTAL (13:31)
[2020-04-24 13:45] LABS: Valproic Acid (Depakene) Level 90 ug/mL (50-100)
[2020-04-24 13:47] LABS: Thyroid Stim Hormone (TSH) 3.44 uIU/mL (0.358-3.74)
[2020-04-24 13:51] LABS: Lactic Acid 4.7 mmol/L (0.4-1.9)
[2020-04-24 14:06] LABS: Mucous, Urine 0 SEEN /hpf (<or=2+); Red Blood Cells-Urine 0 SEEN /hpf (0-5)
[2020-04-24 14:12] LABS: Amphetamine Urine VISTA NEGATIVE (<1000 ng/mL); Barbiturate Urine VISTA POSITIVE (< 200 ng/mL); Benzodiazepine Urine VISTA NEGATIVE (< 200 ng/mL); Cocaine Urine VISTA NEGATIVE (< 300 ng/mL); Ecstacy Urine VISTA NEGATIVE (< 500 ng/mL); Methadone Urine VISTA NEGATIVE (< 300 ng/mL); PCP Urine VISTA NEGATIVE (< 25 ng/mL); THC Urine VISTA NEGATIVE (< 50 ng/mL); Vista UDS pH Range 6
[2020-04-24 14:16] LABS: Color, Urine Yellow (Yellow); Glucose, Dipstick Normal (Normal); Ketone-Dipstick 50 mg/dl (Negative); Leukocyte Esterase-Dipstick 500 /ul (Negative); Nitrite-Dipstick Positive (Negative); Occult Blood-Urine 150 /ul (Negative); Protein-Dipstick 30 mg/dl (Negative); Urine Bilirubin Dipstick Negative (Negative); Urine Clarity Sl. Cloudy (Clear); Urine Urobilinogen 1 mg/dl (Normal)
[2020-04-24] MEDS: LORazepam 2 MG/ML Syringe 1 MG IV (14:28)
[2020-04-24 14:31] LABS: Bacteria 1+ /hpf (None Seen); Squamous Epithelial Cells - UA 0-5 SEEN /hpf (0-5); White Blood Cells 10-25 SEEN /hpf (0-5)
[2020-04-24] MEDS: Ceftriaxone 1 GM/50 ML BAG IV (14:48)
--- NOTE | 2020-04-24 15:45 | NURSING ---
DR CLEMENS IN ER
--- NOTE | 2020-04-24 15:52 | NURSING ---
ICU ASHELFAH FEVER, UTI, DELIRIUM, SEPTIC SHOCK
--- NOTE | 2020-04-24 16:04 | PCM.HP.STD ---
Problem List (1) Septic shock Status: Acute (2) Hypothyroidism Status: Chronic (3) Essential hypertension Status: Chronic (4) Dilatation of aortic root due to Marfan syndrome Status: Chronic Comment: 4.9cm (5) Marfan syndrome Status: Chronic (6) Seizure disorder Status: Chronic History of Present Illness Date of Admission: 04/24/20 Chief Complaint: Fever, altered mental status. The patient is a 44 year old M with past medical history as mentioned above presented to the emergency room because of fever and change in mental status. At this time, patient is very lethargic and sleepy, not able to provide any history. According to the ER physician, EMS reported that patient was covered in urine and there was bedbugs in the house. Again, patient is not able to communicate and he is nonverbal at this time. I spoke with the patient's mother ,Jacki Coffey and she provided more information. She mentioned that he was fine yesterday and his illness started this morning after he woke up from sleep. He had a fever and he was sleepy and lethargic. She mentioned that he has been having chronic mild cough but nothing unusual. No reported abdominal pain, nausea vomiting, no reported diarrhea. According to his mother, normally, he does walk by himself but with difficulties. Normally, he talks to his mother but not today. No reported fall or trauma. He had a history of seizure disorder and he has been on divalproex and phenobarbital. He had a history of hypothyroidism and he has been on levothyroxine, TSH was normal today. He has history of hypertension and he has been on atenolol. In the emergency department, patient was febrile, tachycardic, tachypneic, blood pressure was stable, pulse ox was 95% on room air. His routine blood work was remarkable for creatinine of 1.38, otherwise normal. LFT was unremarkable. TSH was normal. Lactic acid was 4.7. EKG revealed sinus tachycardia, no evidence of acute hemic changes or cardiac arrhythmias. Chest x-ray showed no acute findings. Urinalysis revealed cloudy urine, positive for nitrite and leukocyte esterase, there was 10-25 WBCs and 1+ bacteria. COVID-19 PCR was negative. Urine drug screen was positive for barbiturates, blood alcohol level was 3. CT scan brain showed no acute infarct or hemorrhage. CT scan cervical spine showed no acute fractures or dislocations. He is being admitted for septic shock probably due to acute cystitis, found to have acute kidney injury and encephalopathy. Past Medical History Past Medical History (Chronic Problems): Chronic Problems (Last Reviewed 04/24/20 @ 16:[address] Alexis Murray MD) Hypothyroidism (Chronic) Essential hypertension (Chronic) Dilatation of aortic root due to Marfan syndrome (Chronic) 4.9cm Marfan syndrome (Chronic) Seizure disorder (Chronic) Medical History: Medical History (Last Reviewed 04/24/20 @ 16:[address] Alexis Murray MD) Essential hypertension (Chronic) I10 Dilatation of aortic root due to Marfan syndrome (Chronic) Q87.410 4.9cm Marfan syndrome (Chronic) Q87.40 Seizure disorder (Chronic) G40.909 Allergies No Known Allergies Allergy (Verified 10/05/19 14:08) Home Medications: Ambulatory Orders Medication Instructions Recorded Atenolol 50 mg PO BID 01/15/18 clonazepam 0.5 mg tablet 0.5 mg PO BID 03/22/19 levothyroxine 75 mcg tablet 75 mcg PO DAILY 03/22/19 Divalproex Sodium [Divalproex 1,500 mg PO QHS 04/24/20 Sodium ER] Multivitamin with Minerals 1 tab PO DAILY 04/24/20 [Multiple Vitamin] Phenobarbital 64.8 mg PO DAILY 04/24/20 Surgical History: Surgical History (Last Reviewed 04/24/20 @ 16:[address] Alexis Murray MD) dislocated lenses, removed hamstring lengthening bilateral 1993 Psychiatric History: No pertinent psych hx Lives: With Family Smoking Status: Never smoker Alcohol: None Drugs: None, - - *Family History Maternal Family History: Family History (Last Reviewed 04/24/20 @ 16:[address] Alexis Murray MD) Mother Hypertension Marfans syndrome Uncle Marfans syndrome Ruptured, aorta Uncle Marfans syndrome Ruptured, aorta Paternal Family History: Family History (Last Reviewed 04/24/20 @ 16:[address] Alexis Murray MD) Mother Hypertension Marfans syndrome Uncle Marfans syndrome Ruptured, aorta Uncle Marfans syndrome Ruptured, aorta Review of Systems Constitutional: Reports: - - Unobtainable, patient is lethargic and sleepy. Eyes: Reports: - - Unobtainable, patient is lethargic and sleepy. HEENT: Reports: - - Unobtainable, patient is lethargic and sleepy. Cardiovascular: Reports: - - Unobtainable, patient is lethargic and sleepy. Respiratory: Reports: - - Unobtainable, patient is lethargic and sleepy. Gastrointestinal: Reports: - - Unobtainable, patient is lethargic and sleepy. Genitourinary: Reports: - - Unobtainable, patient is lethargic and sleepy. Musculoskeletal: Reports: - - Unobtainable, patient is lethargic and sleepy. Neurological: Reports: - - Unobtainable, patient is lethargic and sleepy. Psychiatric: Reports: - - Unobtainable, patient is lethargic and sleepy. Endocrine: Reports: - - Unobtainable, patient is lethargic and sleepy. VTE Information - Inpt Only VTE Present on Admission: No VTE Mechan Device Prophylaxis: None VTE Pharm Prophylaxis ordered?: Yes Patient Problems: Active and Suspected Problems (Last Reviewed 04/24/20 @ 16:[address] Alexis Murray MD) Septic shock (Acute) - Physical Exam Vitals/I&O's: Vital Signs Temp Pulse Resp BP Pulse Ox 102 F H 10 L 32 H 104/66 95 04/24/20 15:58 04/24/20 15:58 04/24/20 15:58 04/24/20 15:58 04/24/20 15:58 Oxygen Delivery Method Room Air Weight: 175 lb 7.807 oz Body Mass Index (BMI) 26.6 Intake and Output for Last 24 Hours 04/22/20 04/23/20 04/24/20 23:59 23:59 23:59 Intake Total 1000 / 1000 Balance 1000 / 1000 General: - - Very lethargic, sleepy, opening eyes to verbal stimulation, but not following commands. HEENT: Atraumatic, PERRLA, EOMI, Normocephalic Oral: Moist Mucosa, No Gingival or Mucosal Lesions/ Ulcerations Neck: Supple, No JVD, Negative Carotid Bruits, Trachea Midline Lungs: Clear to auscultation, Normal air movement, No rhonchi, No wheeze, No rales, Diminished Cardiovascular: Regular rate, Regular Rhythm, Normal S1, Normal S2, PMI Normal, Tachycardic Abdomen: Bowel Sounds Present, Soft, Non Tender, Non-Distended, No Hepato-splenomegaly Extremities: No clubbing, No cyanosis, No edema Skin: No rashes, No breakdown Lymphatic: No Cervical, Supraclavicular, or Inguinal Adenopathy Neurological: - - Unable to assess. Patient is very lethargic and sleepy. He is in position, upper and lower extremity contractures. Psych/Mental Status: - - Unable to assess, patient is lethargic. Laboratory Results 04/24/20 12:55: WBC 9.2, RBC 4.56 L, Hgb 14.8, Hct 43.8, MCV 96.1 H, MCH 32.5 H, MCHC 33.8, RDW Std Deviation 43.5, RDW Coeff of Bel 12.3, Plt Count 261, MPV 10.8, Immature Gran % (Auto) 0.400, Neut % (Auto) 94.3 H, Lymph % (Auto) 2.8 L, [place] % (Auto) 1.1, Eos % (Auto) 1.1, Baso % (Auto) 0.3, Absolute Neuts (auto) 8.7 H, Absolute Lymphs (auto) 0.26 L, Nucleated RBC % 0, Differential Comment COMMENT 04/24/20 12:55: PT 14.1, INR 1.1, APTT 26.0 04/24/20 12:55: Sodium 144, Potassium 3.5, Chloride 109 H, Carbon Dioxide 26.0, Anion Gap 9, BUN 12, Creatinine 1.38 H, Estim Creat Clear Calc 66.78, Est GFR (MDRD) Af Amer 72, Est GFR (MDRD) Non-Af 60, BUN/Creatinine Ratio 8.7 L, Glucose 118 H, Calcium 8.8, Total Bilirubin 0.50, AST 40 H, ALT 26, Alkaline Phosphatase 80, Total Protein 8.3 H, Albumin 3.3, Globulin 5.0 H, Albumin/Globulin Ratio 0.7 L 04/24/20 12:55: Lactic Acid 4.7 H* 04/24/20 12:55: Ethyl Alcohol 3.0 04/24/20 12:55: Valproic Acid 90 08/12/20 12:55: Troponin I < 0.015, TSH 3.44 04/24/20 13:15: Urine Opiates Screen NEGATIVE, Urine Methadone Screen NEGATIVE, Ur Barbiturates Screen POSITIVE H, Ur Phencyclidine Scrn NEGATIVE, Ur Amphetamines Screen NEGATIVE, U Methamphetamin-MDMA NEGATIVE, U Benzodiazepines Scrn NEGATIVE, Urine Cocaine Screen NEGATIVE, U Cannabinoids Screen NEGATIVE, Ur Drug Screen Comment 04/24/20 13:15: Urine Color Cancelled, Urine Clarity Cancelled, Urine pH Cancelled, Ur Specific [place] Cancelled, U Specif Grav (Refrac) Cancelled, Urine Protein Cancelled, Urine Glucose (UA) Cancelled, Urine Ketones Cancelled, Urine Occult Blood Cancelled, Urine Nitrite Cancelled, Urine Bilirubin Cancelled, Urine Urobilinogen Cancelled, Ur Leukocyte Esterase Cancelled, Urine RBC Cancelled, Urine WBC Cancelled, Ur Squamous Epith Cells Cancelled, Ur Transition Epith Cell Cancelled, Ur Renal Epithelial Cell Cancelled, Calcium Oxalate Crystal Cancelled, Uric Acid Crystals Cancelled, Triple Phos Crystals Cancelled, Other Crystals Cancelled, Amorphous Sediment Cancelled, Urine Bacteria Cancelled, Hyaline Casts Cancelled, Fine Granular Casts Cancelled, Coarse Granular Casts Cancelled, Waxy Casts Cancelled, RBC Casts Cancelled, WBC Casts Cancelled, Urine Mucus Cancelled, Urine Trichomonas Cancelled, Urine Yeast Cancelled 04/24/20 13:15: Urine Color Yellow, Urine Clarity Sl. Cloudy, Urine pH 6.0, Ur Specific [place] 1.010, Urine Protein 30 H, Urine Glucose (UA) Normal, Urine Ketones 50 H, Urine Occult Blood 150 H, Urine Nitrite Positive H, Urine Bilirubin Negative, Urine Urobilinogen 1 H, Ur Leukocyte Esterase 500 H, Urine RBC 0 SEEN, Urine WBC 10-25 SEEN, Ur Squamous Epith Cells 0-5 SEEN, Urine Bacteria 1+, Urine Mucus 0 SEEN 04/24/20 13:19: COVID-19 ([facility]) Pending Clinical Impression(s) from Imaging Studies Chest X-Ray 04/24/20 12:52 IMPRESSION: Normal x-ray examination of the chest. Electronically Signed: Pravin Elias, at 14:09 EDT , Service support , Brain CT 04/24/20 13:01 IMPRESSION: Normal unenhanced CT scan of the brain. Electronically Signed: Pravin Elias, at 14:08 EDT , Service support , Cervical Spine CT 04/24/20 13:01 IMPRESSION: Degenerative changes, as described above. Electronically Signed: Pravin Elias, at 14:08 EDT , Service support , Current Medications Vancomycin HCl 1,250 mg/ (Dextrose) 275 mls @ 250 mls/hr IV X1 ONE Stop: 04/24/20 16:48 Sodium Chloride () 1,000 mls @ 999 mls/hr IV .Q1H1M ONE Stop: 04/24/20 17:00 Sodium Chloride () 500 mls @ 999 mls/hr IV .Q31M IRWIN Stop: 04/24/20 16:30 Assessment/Plan All Active Problems (Last Reviewed 04/24/20 @ 16:[address] Alexis Murray MD) Septic shock (Acute) This is a 43 years old male patient presented to the emergency room because of fever and altered mental status, found to have septic shock and evidence of acute cystitis as well as encephalopathy. #1 septic shock: At this time, attributed to acute cystitis. The other diagnosis which cannot be ruled out is either meningitis or encephalitis. I was not able to elicit neck pain or stiffness upon moving his neck. Patient is febrile, tachycardic, tachypnea, lactic acid is 4.7. Blood pressure is maintained. He is receiving bolus IV fluids. Blood and urine culture sent. COVID-19 PCR was negative. Plan: Admit to ICU, critical care monitoring, complete bedrest, n.p.o., complete total of 3 L of IV fluid bolus, maintenance IV fluids, start IV Rocephin, IV vancomycin, IV acyclovir, maintain Cleaning catheter, critical care consult, repeat CBC and CMP tomorrow morning, seizure precautions, aspiration precautions, PT OT evaluation and treatment when appropriate. #2 acute cystitis: Urinalysis reviewed. Plan: Urine culture, start IV Rocephin, maintain Cleaning catheter, input output chart. #3 encephalopathy: Likely due to delirium secondary to infection. As mentioned above, meningitis and encephalitis cannot be ruled out. Plan: Panculture, start IV Rocephin, vancomycin and acyclovir, infectious disease consult. #4 acute kidney injury: Secondary to #1. Baseline kidney function is normal. Admission creatinine 1.38. Plan: IV fluids, input output chart, repeat BMP tomorrow morning. #5 seizure disorder: Patient will be n.p.o. Switch phenobarbital to IV 65 mg daily, check Depakote level, hold Depakote and clonazepam for now. #6 Marfan syndrome: Status post multiple reconstructive surgeries. Plan for supportive treatment, PT OT evaluation and treatment. #7 hypothyroidism: TSH was normal. Hold levothyroxine for now. #8 hypertension: Blood pressure stable, hold atenolol for now. #9 CODE STATUS: I spoke with the patient's mother, Jacki Coffey. I explained to her different types of CODE STATUS including full code, DNR CCA with and without intubation, DNR CC. She is the power of civil litigation attorney and she mentioned that she wanted him to be full code for now and she will think more about it after she sees how he does. For now, patient is full code. #9 DVT prophylaxis: Subcu Lovenox. This note was generated with [employer] dictation software. It may contain incorrect words, spelling, and punctuation that were not noted in checking the note before signing. Inpatient E&M: 99945 Init Hosp L3
--- NOTE | 2020-04-24 16:17 | ED.RN ---
CALLED PHARMACY REGARDING ATB'S.
--- NOTE | 2020-04-24 16:49 | NURSING ---
ICU 6
[2020-04-24 17:06] LABS: Reflex Lactate? Y
--- NOTE | 2020-04-24 18:15 | PCM.RX.CS ---
Consult Pharmacy has been consulted to manage selected antiobiotic: Vancomycin Suspected Infection: Sepsis Labs: Sodium 144 mmol/L (136-145) 04/24/20 12:55 Potassium 3.5 mmol/L (3.5-5.1) 04/24/20 12:55 Chloride 109 mmol/L (98-107) H 04/24/20 12:55 Carbon Dioxide 26.0 mmol/L (21.0-32.0) 04/24/20 12:55 Anion Gap 9 (5-15) 04/24/20 12:55 BUN 12 mg/dL (7-18) 04/24/20 12:55 Creatinine 1.38 mg/dL (0.70-1.30) H 04/24/20 12:55 Est GFR (MDRD) Af Amer 72 mL/min (>60) 04/24/20 12:55 Est GFR (MDRD) Non-Af 60 mL/min (>60) 04/24/20 12:55 BUN/Creatinine Ratio 8.7 RATIO (10-20) L 04/24/20 12:55 Glucose 118 mg/dL (74-106) H 04/24/20 12:55 Goal Trough: 15-20 mcg/mL Pharmacy Plan for Drug Dosing: NEW START IV VANCOMYCIN Consulting Physician: Indication: Sepsis Goal Trough: 15-20 SrCr: 1.38 mg/dL CrCl: 71 mL/min Comments: Patient received 1250mg IV x1 at 1629. Giving supplemental Vancomycin dose of 750mg to achieve loading dose of 2g for this patient. Will draw trough prior to 4th total dose of Vancomycin, per protocol. Vancomcyin Dose: 1250mg IV every 12 hours to start on 04/25/2020 at 0430. Pending Level: 04/26/2020 at 0400 Pharmacy Service will continue to monitor and adjust dosing as required.
[2020-04-24 18:22] LABS: Valproic Acid (Depakene) Level 71 ug/mL (50-100)
[2020-04-24 18:27] LABS: Lactic Acid 3.8 mmol/L (0.4-1.9)
--- NOTE | 2020-04-24 18:42 | SEPSISNOTE ---
Sepsis Note - Physical Exam/Vitals Objective: Chest X-Ray 04/24/20 12:52 IMPRESSION: Normal x-ray examination of the chest. Electronically Signed: Pravin Elisa, at 14:09 EDT , Service support , Brain CT 04/24/20 13:01 IMPRESSION: Normal unenhanced CT scan of the brain. Electronically Signed: Pravin Elias, at 14:08 EDT , Service support , Cervical Spine CT 04/24/20 13:01 IMPRESSION: Degenerative changes, as described above. Electronically Signed: Pravin Elias, at 14:08 EDT , Service support , Temp Pulse Resp BP Pulse Ox 100.6 F H 99 29 H 107/62 95 04/24/20 18:30 04/24/20 18:30 04/24/20 18:30 04/24/20 18:30 04/24/20 18:30 04/24/20 04/24/20 04/24/20 16:30 16:30 13:19 WBC RBC Hgb Hct MCV MCH MCHC RDW Std Deviation RDW Coeff of Bel Plt Count MPV Immature Gran % (Auto) Neut % (Auto) Lymph % (Auto) [place] % (Auto) Eos % (Auto) Baso % (Auto) Absolute Neuts (auto) Absolute Lymphs (auto) Nucleated RBC % Differential Comment PT INR APTT Sodium Potassium Chloride Carbon Dioxide Anion Gap BUN Creatinine Estim Creat Clear Calc Est GFR (MDRD) Af Amer Est GFR (MDRD) Non-Af BUN/Creatinine Ratio Glucose Lactic Acid 3.8 H* Calcium Total Bilirubin AST ALT Alkaline Phosphatase Troponin I Total Protein Albumin Globulin Albumin/Globulin Ratio TSH Urine Color Urine Clarity Urine pH Ur Specific [place] U Specif Grav (Refrac) Urine Protein Urine Glucose (UA) Urine Ketones Urine Occult Blood Urine Nitrite Urine Bilirubin Urine Urobilinogen Ur Leukocyte Esterase Urine RBC Urine WBC Ur Squamous Epith Cells Ur Transition Epith Cell Ur Renal Epithelial Cell Calcium Oxalate Crystal Uric Acid Crystals Triple Phos Crystals Other Crystals Amorphous Sediment Urine Bacteria Hyaline Casts Fine Granular Casts Coarse Granular Casts Waxy Casts RBC Casts WBC Casts Urine Mucus Urine Trichomonas Urine Yeast Urine Opiates Screen Urine Methadone Screen Ur Barbiturates Screen Valproic Acid 71 Ur Phencyclidine Scrn Ur Amphetamines Screen U Methamphetamin-MDMA U Benzodiazepines Scrn Urine Cocaine Screen U Cannabinoids Screen Ur Drug Screen Comment Ethyl Alcohol COVID-19 ([facility]) Not Detected 04/24/20 04/24/20 04/24/20 13:15 13:15 13:15 WBC RBC Hgb Hct MCV MCH MCHC RDW Std Deviation RDW Coeff of Bel Plt Count MPV Immature Gran % (Auto) Neut % (Auto) Lymph % (Auto) [place] % (Auto) Eos % (Auto) Baso % (Auto) Absolute Neuts (auto) Absolute Lymphs (auto) Nucleated RBC % Differential Comment PT INR APTT Sodium Potassium Chloride Carbon Dioxide Anion Gap BUN Creatinine Estim Creat Clear Calc Est GFR (MDRD) Af Amer Est GFR (MDRD) Non-Af BUN/Creatinine Ratio Glucose Lactic Acid Calcium Total Bilirubin AST ALT Alkaline Phosphatase Troponin I Total Protein Albumin Globulin Albumin/Globulin Ratio TSH Urine Color Yellow Cancelled Urine Clarity Sl. Cloudy Cancelled Urine pH 6.0 Cancelled Ur Specific [place] 1.010 Cancelled U Specif Grav (Refrac) Cancelled Urine Protein 30 H Cancelled Urine Glucose (UA) Normal Cancelled Urine Ketones 50 H Cancelled Urine Occult Blood 150 H Cancelled Urine Nitrite Positive H Cancelled Urine Bilirubin Negative Cancelled Urine Urobilinogen 1 H Cancelled Ur Leukocyte Esterase 500 H Cancelled Urine RBC 0 SEEN Cancelled Urine WBC 10-25 SEEN Cancelled Ur Squamous Epith Cells 0-5 SEEN Cancelled Ur Transition Epith Cell Cancelled Ur Renal Epithelial Cell Cancelled Calcium Oxalate Crystal Cancelled Uric Acid Crystals Cancelled Triple Phos Crystals Cancelled Other Crystals Cancelled Amorphous Sediment Cancelled Urine Bacteria 1+ Cancelled Hyaline Casts Cancelled Fine Granular Casts Cancelled Coarse Granular Casts Cancelled Waxy Casts Cancelled RBC Casts Cancelled WBC Casts Cancelled Urine Mucus 0 SEEN Cancelled Urine Trichomonas Cancelled Urine Yeast Cancelled Urine Opiates Screen NEGATIVE Urine Methadone Screen NEGATIVE Ur Barbiturates Screen POSITIVE H Valproic Acid Ur Phencyclidine Scrn NEGATIVE Ur Amphetamines Screen NEGATIVE U Methamphetamin-MDMA NEGATIVE U Benzodiazepines Scrn NEGATIVE Urine Cocaine Screen NEGATIVE U Cannabinoids Screen NEGATIVE Ur Drug Screen Comment Ethyl Alcohol COVID-19 ([facility]) 04/24/20 04/24/20 04/24/20 12:55 12:55 12:55 WBC RBC Hgb Hct MCV MCH MCHC RDW Std Deviation RDW Coeff of [place] Plt Count MPV Immature Gran % (Auto) Neut % (Auto) Lymph % (Auto) [place] % (Auto) Eos % (Auto) Baso % (Auto) Absolute Neuts (auto) Absolute Lymphs (auto) Nucleated RBC % Differential Comment PT INR APTT Sodium Potassium Chloride Carbon Dioxide Anion Gap BUN Creatinine Estim Creat Clear Calc Est GFR (MDRD) Af Amer Est GFR (MDRD) Non-Af BUN/Creatinine Ratio Glucose Lactic Acid Calcium Total Bilirubin AST ALT Alkaline Phosphatase Troponin I < 0.015 Total Protein Albumin Globulin Albumin/Globulin Ratio TSH 3.44 Urine Color Urine Clarity Urine pH Ur Specific [place] U Specif Grav (Refrac) Urine Protein Urine Glucose (UA) Urine Ketones Urine Occult Blood Urine Nitrite Urine Bilirubin Urine Urobilinogen Ur Leukocyte Esterase Urine RBC Urine WBC Ur Squamous Epith Cells Ur Transition Epith Cell Ur Renal Epithelial Cell Calcium Oxalate Crystal Uric Acid Crystals Triple Phos Crystals Other Crystals Amorphous Sediment Urine Bacteria Hyaline Casts Fine Granular Casts Coarse Granular Casts Waxy Casts RBC Casts WBC Casts Urine Mucus Urine Trichomonas Urine Yeast Urine Opiates Screen Urine Methadone Screen Ur Barbiturates Screen Valproic Acid 90 Ur Phencyclidine Scrn Ur Amphetamines Screen U Methamphetamin-MDMA U Benzodiazepines Scrn Urine Cocaine Screen U Cannabinoids Screen Ur Drug Screen Comment Ethyl Alcohol 3.0 COVID-19 ([facility]) 04/24/20 04/24/20 04/24/20 12:55 12:55 12:55 WBC RBC Hgb Hct MCV MCH MCHC RDW Std Deviation RDW Coeff of Bel Plt Count MPV Immature Gran % (Auto) Neut % (Auto) Lymph % (Auto) [place] % (Auto) Eos % (Auto) Baso % (Auto) Absolute Neuts (auto) Absolute Lymphs (auto) Nucleated RBC % Differential Comment PT 14.1 INR 1.1 APTT 26.0 Sodium 144 Potassium 3.5 Chloride 109 H Carbon Dioxide 26.0 Anion Gap 9 BUN 12 Creatinine 1.38 H Estim Creat Clear Calc 66.78 Est GFR (MDRD) Af Amer 72 Est GFR (MDRD) Non-Af 60 BUN/Creatinine Ratio 8.7 L Glucose 118 H Lactic Acid 4.7 H* Calcium 8.8 Total Bilirubin 0.50 AST 40 H ALT 26 Alkaline Phosphatase 80 Troponin I Total Protein 8.3 H Albumin 3.3 Globulin 5.0 H Albumin/Globulin Ratio 0.7 L TSH Urine Color Urine Clarity Urine pH Ur Specific [place] U Specif Grav (Refrac) Urine Protein Urine Glucose (UA) Urine Ketones Urine Occult Blood Urine Nitrite Urine Bilirubin Urine Urobilinogen Ur Leukocyte Esterase Urine RBC Urine WBC Ur Squamous Epith Cells Ur Transition Epith Cell Ur Renal Epithelial Cell Calcium Oxalate Crystal Uric Acid Crystals Triple Phos Crystals Other Crystals Amorphous Sediment Urine Bacteria Hyaline Casts Fine Granular Casts Coarse Granular Casts Waxy Casts RBC Casts WBC Casts Urine Mucus Urine Trichomonas Urine Yeast Urine Opiates Screen Urine Methadone Screen Ur Barbiturates Screen Valproic Acid Ur Phencyclidine Scrn Ur Amphetamines Screen U Methamphetamin-MDMA U Benzodiazepines Scrn Urine Cocaine Screen U Cannabinoids Screen Ur Drug Screen Comment Ethyl Alcohol COVID-19 ([facility]) 04/24/20 12:55 WBC 9.2 RBC 4.56 L Hgb 14.8 Hct 43.8 MCV 96.1 H MCH 32.5 H MCHC 33.8 RDW Std Deviation 43.5 RDW Coeff of Bel 12.3 Plt Count 261 MPV 10.8 Immature Gran % (Auto) 0.400 Neut % (Auto) 94.3 H Lymph % (Auto) 2.8 L [place] % (Auto) 1.1 Eos % (Auto) 1.1 Baso % (Auto) 0.3 Absolute Neuts (auto) 8.7 H Absolute Lymphs (auto) 0.26 L Nucleated RBC % 0 Differential Comment COMMENT PT INR APTT Sodium Potassium Chloride Carbon Dioxide Anion Gap BUN Creatinine Estim Creat Clear Calc Est GFR (MDRD) Af Amer Est GFR (MDRD) Non-Af BUN/Creatinine Ratio Glucose Lactic Acid Calcium Total Bilirubin AST ALT Alkaline Phosphatase Troponin I Total Protein Albumin Globulin Albumin/Globulin Ratio TSH Urine Color Urine Clarity Urine pH Ur Specific [place] U Specif Grav (Refrac) Urine Protein Urine Glucose (UA) Urine Ketones Urine Occult Blood Urine Nitrite Urine Bilirubin Urine Urobilinogen Ur Leukocyte Esterase Urine RBC Urine WBC Ur Squamous Epith Cells Ur Transition Epith Cell Ur Renal Epithelial Cell Calcium Oxalate Crystal Uric Acid Crystals Triple Phos Crystals Other Crystals Amorphous Sediment Urine Bacteria Hyaline Casts Fine Granular Casts Coarse Granular Casts Waxy Casts RBC Casts WBC Casts Urine Mucus Urine Trichomonas Urine Yeast Urine Opiates Screen Urine Methadone Screen Ur Barbiturates Screen Valproic Acid Ur Phencyclidine Scrn Ur Amphetamines Screen U Methamphetamin-MDMA U Benzodiazepines Scrn Urine Cocaine Screen U Cannabinoids Screen Ur Drug Screen Comment Ethyl Alcohol COVID-19 ([facility]) General: Lethargic, - - Sleepy, opens eyes to verbal stimuli. Lungs: Clear to auscultation, No rhonchi, No wheeze, No rales, Diminished Cardiovascular: Regular rate, Regular Rhythm, Normal S1, Normal S2, Tachycardic Capillary Refill: <3 seconds Peripheral Pulses: Normal Skin Color: [place] - Assessment/Plan Septic shock secondary to UTI. Probable meningitis/encephalitis cannot be ruled out but less likely. Patient is receiving second liter of IV fluid bolus. Lactic acid is back down to 3.8. He is on IV Rocephin, vancomycin and acyclovir. - Attestation Sepsis Attestation: Sepsis re-evaluation was performed
[2020-04-24] MEDS: 0.9% Normal Saline 1,000 ML 100 ML IV (20:03)
[2020-04-24] MEDS: Acyclovir 700 MG in Dextrose 5% 250 ML 263.7 MG IV (21:55)
[2020-04-24 22:08] LABS: Lactic Acid 2.5 mmol/L (0.4-1.9)
[2020-04-25] VITALS (22 sets, daily range): BP systolic 82–126; BP diastolic 55–82; PULSE 60–90; RESP 15–24; TEMP 36.8–37.4; O2SAT 95–98
[2020-04-25 01:31] LABS: Reflex Lactate? Y
[2020-04-25 02:23] LABS: Lactic Acid 1.2 mmol/L (0.4-1.9)
[2020-04-25] MEDS: 0.9% Saline Lock 10 ML Syringe IV ×2 (04:31→08:23)
[2020-04-25 05:08] LABS: Absolute Lymphocyte Count 2.53 X10^3/uL (0.83-4.51); Absolute Neutrophil Count 10.9 X10^3/uL (2.0-7.7); Basophil# 0.04 X10^3/uL; Basophil% 0.3 % (0-1); Eosinophil# 0.35 X10^3/uL; Eosinophils% 2.2 % (0-5); Hematocrit 31.9 % (40-54); Hemoglobin 10.4 g/dL (13.0-16.5); Lymphocyte # 2.53 X10^3/ul (4.0); Mean Corp Hgb Conc 32.6 g/dL (32-36); Mean Corpuscular Hgb 31.2 pg (27.0-32.0); Mean Corpuscular Volume 95.8 fL (80-94); Mean Platelet Vol. 10.4 fl (6.2-12.0); Monocyte# 2.01 X10^3/uL; Monocyte% 12.7 % (0-10); NRBC Flagged by Analyzer 0 % (0-5); Neutrophil # 10.86 X10^3/uL (2.7-7.7); Neutrophil % 68.4 % (47-70); POSITIVE DIFFERENTIAL YES; POSITIVE MORPHOLOGY YES; Platelet Count 213 K/mm3 (150-450); RBC Distribution Width CV 12.7 % (11.6-14.6); RBC Distribution Width SD 44.6 fl (35.1-43.9); Red Blood Count 3.33 M/mm3 (4.6-6.2); White Blood Count 15.9 K/mm3 (4.4-11.0)
[2020-04-25 05:32] LABS: Differential Indicated SCAN CRITERIA MET
[2020-04-25 05:57] LABS: ALB/GLOB Ratio 0.6 RATIO (0.9-2.4); AST(SGOT) 21 U/L (15-37); Alanine Aminotransfer ALT/SGPT 16 U/L (16-61); Albumin, Serum 2.2 g/dL (3.2-5.0); Alkaline Phosphatase 52 U/L (45-117); Anion Gap 6 (5-15); BUN 8 mg/dL (7-18); BUN/Creat Ratio 12.3 RATIO (10-20); Calcium,Total 7.3 mg/dL (8.5-10.1); Chloride 114 mmol/L (98-107); Creatinine, Serum 0.65 mg/dL (0.70-1.30); EST Glomerular Filtration Rate 141 mL/min (>60); Est Glom Filt Rate - Afr Amer 171 mL/min (>60); Estimated Creatinine Clearance 141.77 ml/min; Globulin 3.6 g/dL (2.2-4.2); Glucose 89 mg/dL (74-106); Potassium 3.4 mmol/L (3.5-5.1); Protein, Total 5.8 g/dL (6.4-8.2); Sodium Level 143 mmol/L (136-145)
--- NOTE | 2020-04-25 06:24 | PCM.CON.CC ---
Reason for Consult Date of Consultation: 04/25/20 Reason for Consultation: Septic shock, encephalopathy History of Present Illness: The patient is a 44-year-old male, with a history as outlined below, who presented to the emergency department on April 24 with fevers and altered mentation. The patient has a history of Marfan syndrome with aortic root dilation, hypertension and developmental delay. It is not clear to me with the patient's functional status is at his baseline. On presentation to the emergency department, the patient was noted to be febrile with a temperature of 103.3 ?F. He was additionally noted to be hypertensive, tachycardic and tachypneic. Initial laboratory evaluation revealed no evidence of a leukocytosis. Coagulation profile was within normal limits. Chemistry profile was notable for acute kidney injury with a creatinine of 1.38. Glucose was normal at 118. Lactate was elevated at 4.7. TSH and troponin are both within normal limits. Urine analysis was positive for nitrites and leukocyte esterase. Toxicology screen was positive for barbiturates. Alcohol level was negative. Coronavirus PCR was negative. CT head was unremarkable. Plain film chest x-ray revealed no acute cardiopulmonary process. The patient received supplemental IV fluid hydration and was started on acyclovir and antimicrobial therapy. He was subsequently admitted to the medical intensive care unit for further management. Overnight, the patient has remained hemodynamically stable. Fever curve has improved. He continues to maintain appropriate oxygen saturations on room air. Past Medical History Past Medical History (Chronic Problems): Chronic Problems (Last Reviewed 04/24/20 @ 16:[address] Alexis Murray MD) Hypothyroidism (Chronic) Essential hypertension (Chronic) Dilatation of aortic root due to Marfan syndrome (Chronic) 4.9cm Marfan syndrome (Chronic) Seizure disorder (Chronic) Medical History: Medical History (Last Reviewed 04/24/20 @ 16:[address] Alexis Murray MD) Essential hypertension (Chronic) I10 Dilatation of aortic root due to Marfan syndrome (Chronic) Q87.410 4.9cm Marfan syndrome (Chronic) Q87.40 Seizure disorder (Chronic) G40.909 Allergies No Known Allergies Allergy (Verified 10/05/19 14:08) Home Medications: Ambulatory Orders Medication Instructions Recorded Atenolol 50 mg PO BID 01/15/18 clonazepam 0.5 mg tablet 0.5 mg PO BID 03/22/19 levothyroxine 75 mcg tablet 75 mcg PO DAILY 03/22/19 Divalproex Sodium [Divalproex 1,500 mg PO QHS 04/24/20 Sodium ER] Multivitamin with Minerals 1 tab PO DAILY 04/24/20 [Multiple Vitamin] Phenobarbital 64.8 mg PO DAILY 04/24/20 Surgical History: Surgical History (Last Reviewed 04/24/20 @ 16:[address] Alexis Murray MD) dislocated lenses, removed hamstring lengthening bilateral 1993 Psychiatric History: No pertinent psych hx Lives: With Family Smoking Status: Never smoker Alcohol: None Drugs: None, - - *Family History Maternal Family History: Family History (Last Reviewed 04/24/20 @ 16:[address] Alexis Murray MD) Mother Hypertension Marfans syndrome Uncle Marfans syndrome Ruptured, aorta Uncle Marfans syndrome Ruptured, aorta History Items: Unknown Paternal Family History: Family History (Last Reviewed 04/24/20 @ 16:[address] Alexis Murray MD) Mother Hypertension Marfans syndrome Uncle Marfans syndrome Ruptured, aorta Uncle Marfans syndrome Ruptured, aorta History Items: Unknown Review of Systems Unable to obtain accurate/complete ROS d/t: Due to baseline neurological deficits. Patient Problems: Active and Suspected Problems (Last Reviewed 04/24/20 @ 16:[address] Alexis Murray MD) Bacteremia (Acute) Septic shock (Acute) Objective: The patient's most recent lab work, culture data and imaging studies have all been personally reviewed. Preliminary blood culture was positive for gram-negative rods. Urine culture is currently pending. - Physical Exam Vitals/I&O's: Vital Signs Temp Pulse Resp BP Pulse Ox 98.8 F 82 24 H 102/63 96 04/25/20 05:00 04/25/20 05:00 04/25/20 05:00 04/25/20 05:00 04/25/20 05:00 Oxygen Flow Rate (L/min) 2 Oxygen Delivery Method Room Air Weight: 180 lb 5.41 oz Body Mass Index (BMI) 26.6 Intake and Output for Last 24 Hours 04/23/20 04/24/20 04/25/20 23:59 23:59 23:59 Intake Total 3669.37 / 3669.37 0.25 / 0.25 Output Total 1100 / 1300 725 / 725 Balance 2569.37 / 2369.37 -724.75 / -724.75 General: Alert, No apparent distress, - - The patient easily arouses to verbal stimulation but is not answering my questions at this time. HEENT: Atraumatic, Normocephalic Oral: Dry Mucosa, - - Poor generalized intention Neck: Supple, No Nodes, Trachea Midline Lungs: Diminished, - - Poor patient dependent inspiratory effort Cardiovascular: Regular rate, Regular Rhythm, Normal S1, Normal S2 Abdomen: Bowel Sounds Present, Soft, Non Tender Extremities: No clubbing, No cyanosis, Edema - B/L pedal edema present. Skin: No breakdown Musculoskeletal: No Tenderness to Palpation of Joints or Extremities Lymphatic: No Cervical, Supraclavicular, or Inguinal Adenopathy Neurological: - - Unclear baseline neurological status. Contracted extremities. Psych/Mental Status: Flat Affect Labs (Last 48 Hours) 04/24/20 04/24/20 04/24/20 12:55 12:55 12:55 WBC 9.2 RBC 4.56 L Hgb 14.8 Hct 43.8 MCV 96.1 H MCH 32.5 H MCHC 33.8 RDW Std Deviation 43.5 RDW Coeff of Bel 12.3 Plt Count 261 MPV 10.8 Immature Gran % (Auto) 0.400 Neut % (Auto) 94.3 H Lymph % (Auto) 2.8 L [place] % (Auto) 1.1 Eos % (Auto) 1.1 Baso % (Auto) 0.3 Absolute Neuts (auto) 8.7 H Absolute Lymphs (auto) 0.26 L Nucleated RBC % 0 Differential Comment COMMENT Diff Path Review PT 14.1 INR 1.1 APTT 26.0 Sodium 144 Potassium 3.5 Chloride 109 H Carbon Dioxide 26.0 Anion Gap 9 BUN 12 Creatinine 1.38 H Estim Creat Clear Calc 66.78 Est GFR (MDRD) Af Amer 72 Est GFR (MDRD) Non-Af 60 BUN/Creatinine Ratio 8.7 L Glucose 118 H Lactic Acid Calcium 8.8 Total Bilirubin 0.50 AST 40 H ALT 26 Alkaline Phosphatase 80 Troponin I Total Protein 8.3 H Albumin 3.3 Globulin 5.0 H Albumin/Globulin Ratio 0.7 L TSH Urine Color Urine Clarity Urine pH Ur Specific [place] U Specif Grav (Refrac) Urine Protein Urine Glucose (UA) Urine Ketones Urine Occult Blood Urine Nitrite Urine Bilirubin Urine Urobilinogen Ur Leukocyte Esterase Urine RBC Urine WBC Ur Squamous Epith Cells Ur Transition Epith Cell Ur Renal Epithelial Cell Calcium Oxalate Crystal Uric Acid Crystals Triple Phos Crystals Other Crystals Amorphous Sediment Urine Bacteria Hyaline Casts Fine Granular Casts Coarse Granular Casts Waxy Casts RBC Casts WBC Casts Urine Mucus Urine Trichomonas Urine Yeast Urine Opiates Screen Urine Methadone Screen Ur Barbiturates Screen Valproic Acid Ur Phencyclidine Scrn Ur Amphetamines Screen U Methamphetamin-MDMA U Benzodiazepines Scrn Urine Cocaine Screen U Cannabinoids Screen Ur Drug Screen Comment Ethyl Alcohol COVID-19 ([facility]) 04/24/20 04/24/20 04/24/20 12:55 12:55 12:55 WBC RBC Hgb Hct MCV MCH MCHC RDW Std Deviation RDW Coeff of Bel Plt Count MPV Immature Gran % (Auto) Neut % (Auto) Lymph % (Auto) [place] % (Auto) Eos % (Auto) Baso % (Auto) Absolute Neuts (auto) Absolute Lymphs (auto) Nucleated RBC % Differential Comment Diff Path Review PT INR APTT Sodium Potassium Chloride Carbon Dioxide Anion Gap BUN Creatinine Estim Creat Clear Calc Est GFR (MDRD) Af Amer Est GFR (MDRD) Non-Af BUN/Creatinine Ratio Glucose Lactic Acid 4.7 H* Calcium Total Bilirubin AST ALT Alkaline Phosphatase Troponin I Total Protein Albumin Globulin Albumin/Globulin Ratio TSH Urine Color Urine Clarity Urine pH Ur Specific [place] U Specif Grav (Refrac) Urine Protein Urine Glucose (UA) Urine Ketones Urine Occult Blood Urine Nitrite Urine Bilirubin Urine Urobilinogen Ur Leukocyte Esterase Urine RBC Urine WBC Ur Squamous Epith Cells Ur Transition Epith Cell Ur Renal Epithelial Cell Calcium Oxalate Crystal Uric Acid Crystals Triple Phos Crystals Other Crystals Amorphous Sediment Urine Bacteria Hyaline Casts Fine Granular Casts Coarse Granular Casts Waxy Casts RBC Casts WBC Casts Urine Mucus Urine Trichomonas Urine Yeast Urine Opiates Screen Urine Methadone Screen Ur Barbiturates Screen Valproic Acid 90 Ur Phencyclidine Scrn Ur Amphetamines Screen U Methamphetamin-MDMA U Benzodiazepines Scrn Urine Cocaine Screen U Cannabinoids Screen Ur Drug Screen Comment Ethyl Alcohol 3.0 COVID-19 ([facility]) 04/24/20 04/24/20 04/24/20 12:55 13:15 13:15 WBC RBC Hgb Hct MCV MCH MCHC RDW Std Deviation RDW Coeff of Bel Plt Count MPV Immature Gran % (Auto) Neut % (Auto) Lymph % (Auto) [place] % (Auto) Eos % (Auto) Baso % (Auto) Absolute Neuts (auto) Absolute Lymphs (auto) Nucleated RBC % Differential Comment Diff Path Review PT INR APTT Sodium Potassium Chloride Carbon Dioxide Anion Gap BUN Creatinine Estim Creat Clear Calc Est GFR (MDRD) Af Amer Est GFR (MDRD) Non-Af BUN/Creatinine Ratio Glucose Lactic Acid Calcium Total Bilirubin AST ALT Alkaline Phosphatase Troponin I < 0.015 Total Protein Albumin Globulin Albumin/Globulin Ratio TSH 3.44 Urine Color Cancelled Urine Clarity Cancelled Urine pH Cancelled Ur Specific [place] Cancelled U Specif Grav (Refrac) Cancelled Urine Protein Cancelled Urine Glucose (UA) Cancelled Urine Ketones Cancelled Urine Occult Blood Cancelled Urine Nitrite Cancelled Urine Bilirubin Cancelled Urine Urobilinogen Cancelled Ur Leukocyte Esterase Cancelled Urine RBC Cancelled Urine WBC Cancelled Ur Squamous Epith Cells Cancelled Ur Transition Epith Cell Cancelled Ur Renal Epithelial Cell Cancelled Calcium Oxalate Crystal Cancelled Uric Acid Crystals Cancelled Triple Phos Crystals Cancelled Other Crystals Cancelled Amorphous Sediment Cancelled Urine Bacteria Cancelled Hyaline Casts Cancelled Fine Granular Casts Cancelled Coarse Granular Casts Cancelled Waxy Casts Cancelled RBC Casts Cancelled WBC Casts Cancelled Urine Mucus Cancelled Urine Trichomonas Cancelled Urine Yeast Cancelled Urine Opiates Screen NEGATIVE Urine Methadone Screen NEGATIVE Ur Barbiturates Screen POSITIVE H Valproic Acid Ur Phencyclidine Scrn NEGATIVE Ur Amphetamines Screen NEGATIVE U Methamphetamin-MDMA NEGATIVE U Benzodiazepines Scrn NEGATIVE Urine Cocaine Screen NEGATIVE U Cannabinoids Screen NEGATIVE Ur Drug Screen Comment Ethyl Alcohol COVID-19 ([facility]) 04/24/20 04/24/20 04/24/20 13:15 13:19 16:30 WBC RBC Hgb Hct MCV MCH MCHC RDW Std Deviation RDW Coeff of [place] Plt Count MPV Immature Gran % (Auto) Neut % (Auto) Lymph % (Auto) [place] % (Auto) Eos % (Auto) Baso % (Auto) Absolute Neuts (auto) Absolute Lymphs (auto) Nucleated RBC % Differential Comment Diff Path Review PT INR APTT Sodium Potassium Chloride Carbon Dioxide Anion Gap BUN Creatinine Estim Creat Clear Calc Est GFR (MDRD) Af Amer Est GFR (MDRD) Non-Af BUN/Creatinine Ratio Glucose Lactic Acid Calcium Total Bilirubin AST ALT Alkaline Phosphatase Troponin I Total Protein Albumin Globulin Albumin/Globulin Ratio TSH Urine Color Yellow Urine Clarity Sl. Cloudy Urine pH 6.0 Ur Specific [place] 1.010 U Specif Grav (Refrac) Urine Protein 30 H Urine Glucose (UA) Normal Urine Ketones 50 H Urine Occult Blood 150 H Urine Nitrite Positive H Urine Bilirubin Negative Urine Urobilinogen 1 H Ur Leukocyte Esterase 500 H Urine RBC 0 SEEN Urine WBC 10-25 SEEN Ur Squamous Epith Cells 0-5 SEEN Ur Transition Epith Cell Ur Renal Epithelial Cell Calcium Oxalate Crystal Uric Acid Crystals Triple Phos Crystals Other Crystals Amorphous Sediment Urine Bacteria 1+ Hyaline Casts Fine Granular Casts Coarse Granular Casts Waxy Casts RBC Casts WBC Casts Urine Mucus 0 SEEN Urine Trichomonas Urine Yeast Urine Opiates Screen Urine Methadone Screen Ur Barbiturates Screen Valproic Acid 71 Ur Phencyclidine Scrn Ur Amphetamines Screen U Methamphetamin-MDMA U Benzodiazepines Scrn Urine Cocaine Screen U Cannabinoids Screen Ur Drug Screen Comment Ethyl Alcohol COVID-19 ([facility]) Not Detected 04/24/20 04/24/20 04/25/20 16:30 21:25 01:40 WBC RBC Hgb Hct MCV MCH MCHC RDW Std Deviation RDW Coeff of [place] Plt Count MPV Immature Gran % (Auto) Neut % (Auto) Lymph % (Auto) [place] % (Auto) Eos % (Auto) Baso % (Auto) Absolute Neuts (auto) Absolute Lymphs (auto) Nucleated RBC % Differential Comment Diff Path Review PT INR APTT Sodium Potassium Chloride Carbon Dioxide Anion Gap BUN Creatinine Estim Creat Clear Calc Est GFR (MDRD) Af Amer Est GFR (MDRD) Non-Af BUN/Creatinine Ratio Glucose Lactic Acid 3.8 H* 2.5 H* 1.2 Calcium Total Bilirubin AST ALT Alkaline Phosphatase Troponin I Total Protein Albumin Globulin Albumin/Globulin Ratio TSH Urine Color Urine Clarity Urine pH Ur Specific [place] U Specif Grav (Refrac) Urine Protein Urine Glucose (UA) Urine Ketones Urine Occult Blood Urine Nitrite Urine Bilirubin Urine Urobilinogen Ur Leukocyte Esterase Urine RBC Urine WBC Ur Squamous Epith Cells Ur Transition Epith Cell Ur Renal Epithelial Cell Calcium Oxalate Crystal Uric Acid Crystals Triple Phos Crystals Other Crystals Amorphous Sediment Urine Bacteria Hyaline Casts Fine Granular Casts Coarse Granular Casts Waxy Casts RBC Casts WBC Casts Urine Mucus Urine Trichomonas Urine Yeast Urine Opiates Screen Urine Methadone Screen Ur Barbiturates Screen Valproic Acid Ur Phencyclidine Scrn Ur Amphetamines Screen U Methamphetamin-MDMA U Benzodiazepines Scrn Urine Cocaine Screen U Cannabinoids Screen Ur Drug Screen Comment Ethyl Alcohol COVID-19 ([facility]) 04/25/20 04/25/20 05:05 05:05 WBC 15.9 H RBC 3.33 L Hgb 10.4 L Hct 31.9 L MCV 95.8 H MCH 31.2 MCHC 32.6 RDW Std Deviation 44.6 H RDW Coeff of Bel 12.7 Plt Count 213 MPV 10.4 Immature Gran % (Auto) 0.400 Neut % (Auto) 68.4 Lymph % (Auto) 16.0 L [place] % (Auto) 12.7 H Eos % (Auto) 2.2 Baso % (Auto) 0.3 Absolute Neuts (auto) 10.9 H Absolute Lymphs (auto) 2.53 Nucleated RBC % 0 Differential Comment COMMENT Diff Path Review May foll PT INR APTT Sodium 143 Potassium 3.4 L Chloride 114 H Carbon Dioxide 23.0 Anion Gap 6 BUN 8 Creatinine 0.65 L Estim Creat Clear Calc 141.77 Est GFR (MDRD) Af Amer 171 Est GFR (MDRD) Non-Af 141 BUN/Creatinine Ratio 12.3 Glucose 89 Lactic Acid Calcium 7.3 L Total Bilirubin 0.20 AST 21 ALT 16 Alkaline Phosphatase 52 Troponin I Total Protein 5.8 L Albumin 2.2 L Globulin 3.6 Albumin/Globulin Ratio 0.6 L TSH Urine Color Urine Clarity Urine pH Ur Specific [place] U Specif Grav (Refrac) Urine Protein Urine Glucose (UA) Urine Ketones Urine Occult Blood Urine Nitrite Urine Bilirubin Urine Urobilinogen Ur Leukocyte Esterase Urine RBC Urine WBC Ur Squamous Epith Cells Ur Transition Epith Cell Ur Renal Epithelial Cell Calcium Oxalate Crystal Uric Acid Crystals Triple Phos Crystals Other Crystals Amorphous Sediment Urine Bacteria Hyaline Casts Fine Granular Casts Coarse Granular Casts Waxy Casts RBC Casts WBC Casts Urine Mucus Urine Trichomonas Urine Yeast Urine Opiates Screen Urine Methadone Screen Ur Barbiturates Screen Valproic Acid Ur Phencyclidine Scrn Ur Amphetamines Screen U Methamphetamin-MDMA U Benzodiazepines Scrn Urine Cocaine Screen U Cannabinoids Screen Ur Drug Screen Comment Ethyl Alcohol COVID-19 ([facility]) Microbiology 04/24/20 12:55 Blood Culture (Wb) - Arm Right Blood Culture - Preliminary Clinical Impression(s) from Imaging Studies Chest X-Ray 04/24/20 12:52 IMPRESSION: Normal x-ray examination of the chest. Electronically Signed: Pravin Curt, at 14:09 EDT , Service support , Brain CT 04/24/20 13:01 IMPRESSION: Normal unenhanced CT scan of the brain. Electronically Signed: Pravin Elias, at 14:08 EDT , Service support , Cervical Spine CT 04/24/20 13:01 IMPRESSION: Degenerative changes, as described above. Electronically Signed: Pravin Elias, at 14:08 EDT , Service support , Current Medications Acetaminophen (Tylenol) 650 mg RECTAL Q4H PRN PRN PRN Reason: Pain Score 1-10/Temp > 100.7 F Enoxaparin Sodium (Lovenox) 40 mg SC DAILY [facility] Sodium Chloride () 1,000 mls @ 100 mls/hr IV .Q10H [facility] Last Infusion: 04/24/20 20:30 Dose: 100 mls/hr Documented by: Acyclovir Sodium 700 mg/ (Dextrose) 264 mls @ 263.7 mls/hr IV Q8 [facility] Last Infusion: 04/24/20 23:15 Dose: Infused Documented by: Ceftriaxone Sodium 2 gm/ (Sodium Chloride) 50 mls @ 100 mls/hr IV Q12 [facility] Last Infusion: 04/24/20 21:53 Dose: Infused Documented by: Sodium Chloride () 250 mls @ 15 mls/hr IV .[id number] PRN PRN Reason: Saline Flush Last Infusion: 04/25/20 04:32 Dose: 0 mls/hr Documented by: Sodium Chloride () 250 mls @ 15 mls/hr IV .[id number] PRN PRN Reason: Additional IVPB Infusion Vancomycin IV Pharmacy to Dose (1 ea/ Sodium Chloride) 500 mls @ 250 mls/hr IV PRN PRN; Protocol PRN Reason: Rx to Dose Vancomycin HCl 1,250 mg/ (Sodium Chloride) 275 mls @ 167 mls/hr IV Q12H [facility] Last Admin: 04/25/20 04:30 Dose: 167 mls/hr Documented by: Ondansetron HCl (Zofran) 4 mg IV Q8H PRN PRN PRN Reason: NAUSEA/VOMITING Phenobarbital (Phenobarbital) 65 mg IV DAILY [facility] Sodium Chloride () 10 - 40 ml IV UD PRN PRN Reason: SALINE FLUSH Last Admin: 04/25/20 04:31 Dose: 20 ml Documented by: Assessment/Plan Active and Suspected Problems (Last Reviewed 04/24/20 @ 16:[address] Alexis Murray MD) Bacteremia (Acute) Septic shock (Acute) RECOMMENDATIONS: 1. Continue antimicrobials. Acyclovir and vancomycin can likely be discontinued. However, will defer to infectious diseases. 2. Electrolyte repletion as ordered. 3. Continue baseline antiepileptic medications. 4. Encourage incentive spirometer use and mobilize patient as tolerated. 5. The patient is medically stable for transfer out of the intensive care unit. IMPRESSIONS: 1. Septic shock The patient presented to the hospital with altered mentation and fever and subsequently met septic shock criteria with an elevated lactate. Nevertheless, the patient was never hemodynamically unstable, nor did he require vasopressor support. The patient appears to have a gram-negative urinary tract source of infection with secondary hematogenous spread. He is on appropriate antimicrobials at this time. Infectious diseases consultation is currently pending. However, acyclovir and vancomycin can be discontinued from my perspective. I do have a low suspicion for underlying meningitis/encephalitis. 2. Encephalopathy Most likely secondary to the patient's underlying infectious etiology. Anticipate improvement in mentation as his underlying infection is addressed. 3. Acute kidney injury Likely prerenal in etiology and related to #1. Creatinine has improved with volume expansion. Continue to monitor urine output. No indication for renal replacement therapy at this time. 4. Hypokalemia Electrolyte repletion as ordered. Recheck levels in the morning. 5. Baseline MRDD/Marfan syndrome/hypothyroidism/history of epilepsy/hypertension Complicates care, management, recovery and prognosis. Continue baseline, outpatient medication regimen. This note was generated with [employer] dictation software. It may contain incorrect words, spelling, and punctuation that were not noted in checking the note before signing. Inpatient E&M: 48206 Init Hosp L3
[2020-04-25] MEDS: 0.9% Normal Saline 1,000 ML 100 ML IV ×2 (06:25→16:11)
[2020-04-25] MEDS: Acyclovir 700 MG in Dextrose 5% 250 ML 263.7 MG IV (06:25)
[2020-04-25] MEDS: Phenobarbital Sodium 65 MG/ML Vial IV (10:13)
[2020-04-25] MEDS: Enoxaparin 40 MG/0.4 ML Syringe SC (10:15)
--- NOTE | 2020-04-25 10:19 | PCM.HP.ID ---
Problem List (1) Bacteremia Status: Acute Reason for Consult: bacteremia Consulted by: Dr. Tavares History of Present Illness: The patient is a 44 year old M with Marfan, seizures, developmental delay, taken to ED yesterday with one day h/o fever, altered mental status. Pt unable to provide history, found down at home. Admitted on vanc/ceftriaxone/acyclovir. Fever to 103.3 overnight. Covid pcr neg. ROS unobtainable due to mental status. - Medical History Past Medical History (Chronic Problems): Chronic Problems (Last Reviewed 04/24/20 @ 16:[address] Alexis Murray MD) Hypothyroidism (Chronic) Essential hypertension (Chronic) Dilatation of aortic root due to Marfan syndrome (Chronic) 4.9cm Marfan syndrome (Chronic) Seizure disorder (Chronic) Allergies/Adverse Reactions: Allergies No Known Allergies Allergy (Verified 10/05/19 14:08) Home Medications: Ambulatory Orders Medication Instructions Recorded Atenolol 50 mg PO BID 01/15/18 clonazepam 0.5 mg tablet 0.5 mg PO BID 03/22/19 levothyroxine 75 mcg tablet 75 mcg PO DAILY 03/22/19 Divalproex Sodium [Divalproex 1,500 mg PO QHS 04/24/20 Sodium ER] Multivitamin with Minerals 1 tab PO DAILY 04/24/20 [Multiple Vitamin] Phenobarbital 64.8 mg PO DAILY 04/24/20 - Social History Tobacco Use: non-smoker Vital Signs Temp Pulse Resp BP Pulse Ox 98.6 F 74 19 H 98/64 97 04/25/20 09:00 04/25/20 09:00 04/25/20 09:00 04/25/20 09:00 04/25/20 09:00 Oxygen Flow Rate (L/min) 2 Oxygen Delivery Method Room Air Weight: 81.8 kg Body Mass Index (BMI) 26.6 Microbiology Past 72 Hours 04/24/20 12:55 Blood Culture - Preliminary Blood Culture (Wb) - Arm Right Laboratory Tests Past 24 Hrs 04/24/20 04/24/20 04/24/20 12:55 12:55 12:55 WBC 9.2 RBC 4.56 L Hgb 14.8 Hct 43.8 MCV 96.1 H MCH 32.5 H MCHC 33.8 RDW Std Deviation 43.5 RDW Coeff of Bel 12.3 Plt Count 261 MPV 10.8 Immature Gran % (Auto) 0.400 Neut % (Auto) 94.3 H Lymph % (Auto) 2.8 L Coffee % (Auto) 1.1 Eos % (Auto) 1.1 Baso % (Auto) 0.3 Absolute Neuts (auto) 8.7 H Absolute Lymphs (auto) 0.26 L Nucleated RBC % 0 Differential Comment COMMENT Diff Path Review PT 14.1 INR 1.1 APTT 26.0 Sodium 144 Potassium 3.5 Chloride 109 H Carbon Dioxide 26.0 Anion Gap 9 BUN 12 Creatinine 1.38 H Estim Creat Clear Calc 66.78 Est GFR (MDRD) Af Amer 72 Est GFR (MDRD) Non-Af 60 BUN/Creatinine Ratio 8.7 L Glucose 118 H Lactic Acid Calcium 8.8 Total Bilirubin 0.50 AST 40 H ALT 26 Alkaline Phosphatase 80 Troponin I Total Protein 8.3 H Albumin 3.3 Globulin 5.0 H Albumin/Globulin Ratio 0.7 L TSH Urine Color Urine Clarity Urine pH Ur Specific [place] U Specif Grav (Refrac) Urine Protein Urine Glucose (UA) Urine Ketones Urine Occult Blood Urine Nitrite Urine Bilirubin Urine Urobilinogen Ur Leukocyte Esterase Urine RBC Urine WBC Ur Squamous Epith Cells Ur Transition Epith Cell Ur Renal Epithelial Cell Calcium Oxalate Crystal Uric Acid Crystals Triple Phos Crystals Other Crystals Amorphous Sediment Urine Bacteria Hyaline Casts Fine Granular Casts Coarse Granular Casts Waxy Casts RBC Casts WBC Casts Urine Mucus Urine Trichomonas Urine Yeast Urine Opiates Screen Urine Methadone Screen Ur Barbiturates Screen Valproic Acid Ur Phencyclidine Scrn Ur Amphetamines Screen U Methamphetamin-MDMA U Benzodiazepines Scrn Urine Cocaine Screen U Cannabinoids Screen Ur Drug Screen Comment Ethyl Alcohol COVID-19 ([facility]) 04/24/20 04/24/20 04/24/20 12:55 12:55 12:55 WBC RBC Hgb Hct MCV MCH MCHC RDW Std Deviation RDW Coeff of Bel Plt Count MPV Immature Gran % (Auto) Neut % (Auto) Lymph % (Auto) Coffee % (Auto) Eos % (Auto) Baso % (Auto) Absolute Neuts (auto) Absolute Lymphs (auto) Nucleated RBC % Differential Comment Diff Path Review PT INR APTT Sodium Potassium Chloride Carbon Dioxide Anion Gap BUN Creatinine Estim Creat Clear Calc Est GFR (MDRD) Af Amer Est GFR (MDRD) Non-Af BUN/Creatinine Ratio Glucose Lactic Acid 4.7 H* Calcium Total Bilirubin AST ALT Alkaline Phosphatase Troponin I Total Protein Albumin Globulin Albumin/Globulin Ratio TSH Urine Color Urine Clarity Urine pH Ur Specific [place] U Specif Grav (Refrac) Urine Protein Urine Glucose (UA) Urine Ketones Urine Occult Blood Urine Nitrite Urine Bilirubin Urine Urobilinogen Ur Leukocyte Esterase Urine RBC Urine WBC Ur Squamous Epith Cells Ur Transition Epith Cell Ur Renal Epithelial Cell Calcium Oxalate Crystal Uric Acid Crystals Triple Phos Crystals Other Crystals Amorphous Sediment Urine Bacteria Hyaline Casts Fine Granular Casts Coarse Granular Casts Waxy Casts RBC Casts WBC Casts Urine Mucus Urine Trichomonas Urine Yeast Urine Opiates Screen Urine Methadone Screen Ur Barbiturates Screen Valproic Acid 90 Ur Phencyclidine Scrn Ur Amphetamines Screen U Methamphetamin-MDMA U Benzodiazepines Scrn Urine Cocaine Screen U Cannabinoids Screen Ur Drug Screen Comment Ethyl Alcohol 3.0 COVID-19 ([facility]) 04/24/20 04/24/20 04/24/20 12:55 13:15 13:15 WBC RBC Hgb Hct MCV MCH MCHC RDW Std Deviation RDW Coeff of Bel Plt Count MPV Immature Gran % (Auto) Neut % (Auto) Lymph % (Auto) Coffee % (Auto) Eos % (Auto) Baso % (Auto) Absolute Neuts (auto) Absolute Lymphs (auto) Nucleated RBC % Differential Comment Diff Path Review PT INR APTT Sodium Potassium Chloride Carbon Dioxide Anion Gap BUN Creatinine Estim Creat Clear Calc Est GFR (MDRD) Af Amer Est GFR (MDRD) Non-Af BUN/Creatinine Ratio Glucose Lactic Acid Calcium Total Bilirubin AST ALT Alkaline Phosphatase Troponin I < 0.015 Total Protein Albumin Globulin Albumin/Globulin Ratio TSH 3.44 Urine Color Cancelled Urine Clarity Cancelled Urine pH Cancelled Ur Specific [place] Cancelled U Specif Grav (Refrac) Cancelled Urine Protein Cancelled Urine Glucose (UA) Cancelled Urine Ketones Cancelled Urine Occult Blood Cancelled Urine Nitrite Cancelled Urine Bilirubin Cancelled Urine Urobilinogen Cancelled Ur Leukocyte Esterase Cancelled Urine RBC Cancelled Urine WBC Cancelled Ur Squamous Epith Cells Cancelled Ur Transition Epith Cell Cancelled Ur Renal Epithelial Cell Cancelled Calcium Oxalate Crystal Cancelled Uric Acid Crystals Cancelled Triple Phos Crystals Cancelled Other Crystals Cancelled Amorphous Sediment Cancelled Urine Bacteria Cancelled Hyaline Casts Cancelled Fine Granular Casts Cancelled Coarse Granular Casts Cancelled Waxy Casts Cancelled RBC Casts Cancelled WBC Casts Cancelled Urine Mucus Cancelled Urine Trichomonas Cancelled Urine Yeast Cancelled Urine Opiates Screen NEGATIVE Urine Methadone Screen NEGATIVE Ur Barbiturates Screen POSITIVE H Valproic Acid Ur Phencyclidine Scrn NEGATIVE Ur Amphetamines Screen NEGATIVE U Methamphetamin-MDMA NEGATIVE U Benzodiazepines Scrn NEGATIVE Urine Cocaine Screen NEGATIVE U Cannabinoids Screen NEGATIVE Ur Drug Screen Comment Ethyl Alcohol COVID-19 ([facility]) 04/24/20 04/24/20 04/24/20 13:15 13:19 16:30 WBC RBC Hgb Hct MCV MCH MCHC RDW Std Deviation RDW Coeff of Bel Plt Count MPV Immature Gran % (Auto) Neut % (Auto) Lymph % (Auto) Coffee % (Auto) Eos % (Auto) Baso % (Auto) Absolute Neuts (auto) Absolute Lymphs (auto) Nucleated RBC % Differential Comment Diff Path Review PT INR APTT Sodium Potassium Chloride Carbon Dioxide Anion Gap BUN Creatinine Estim Creat Clear Calc Est GFR (MDRD) Af Amer Est GFR (MDRD) Non-Af BUN/Creatinine Ratio Glucose Lactic Acid Calcium Total Bilirubin AST ALT Alkaline Phosphatase Troponin I Total Protein Albumin Globulin Albumin/Globulin Ratio TSH Urine Color Yellow Urine Clarity Sl. Cloudy Urine pH 6.0 Ur Specific [place] 1.010 U Specif Grav (Refrac) Urine Protein 30 H Urine Glucose (UA) Normal Urine Ketones 50 H Urine Occult Blood 150 H Urine Nitrite Positive H Urine Bilirubin Negative Urine Urobilinogen 1 H Ur Leukocyte Esterase 500 H Urine RBC 0 SEEN Urine WBC 10-25 SEEN Ur Squamous Epith Cells 0-5 SEEN Ur Transition Epith Cell Ur Renal Epithelial Cell Calcium Oxalate Crystal Uric Acid Crystals Triple Phos Crystals Other Crystals Amorphous Sediment Urine Bacteria 1+ Hyaline Casts Fine Granular Casts Coarse Granular Casts Waxy Casts RBC Casts WBC Casts Urine Mucus 0 SEEN Urine Trichomonas Urine Yeast Urine Opiates Screen Urine Methadone Screen Ur Barbiturates Screen Valproic Acid 71 Ur Phencyclidine Scrn Ur Amphetamines Screen U Methamphetamin-MDMA U Benzodiazepines Scrn Urine Cocaine Screen U Cannabinoids Screen Ur Drug Screen Comment Ethyl Alcohol COVID-19 ([facility]) Not Detected 04/24/20 04/24/20 04/25/20 16:30 21:25 01:40 WBC RBC Hgb Hct MCV MCH MCHC RDW Std Deviation RDW Coeff of Bel Plt Count MPV Immature Gran % (Auto) Neut % (Auto) Lymph % (Auto) Coffee % (Auto) Eos % (Auto) Baso % (Auto) Absolute Neuts (auto) Absolute Lymphs (auto) Nucleated RBC % Differential Comment Diff Path Review PT INR APTT Sodium Potassium Chloride Carbon Dioxide Anion Gap BUN Creatinine Estim Creat Clear Calc Est GFR (MDRD) Af Amer Est GFR (MDRD) Non-Af BUN/Creatinine Ratio Glucose Lactic Acid 3.8 H* 2.5 H* 1.2 Calcium Total Bilirubin AST ALT Alkaline Phosphatase Troponin I Total Protein Albumin Globulin Albumin/Globulin Ratio TSH Urine Color Urine Clarity Urine pH Ur Specific [place] U Specif Grav (Refrac) Urine Protein Urine Glucose (UA) Urine Ketones Urine Occult Blood Urine Nitrite Urine Bilirubin Urine Urobilinogen Ur Leukocyte Esterase Urine RBC Urine WBC Ur Squamous Epith Cells Ur Transition Epith Cell Ur Renal Epithelial Cell Calcium Oxalate Crystal Uric Acid Crystals Triple Phos Crystals Other Crystals Amorphous Sediment Urine Bacteria Hyaline Casts Fine Granular Casts Coarse Granular Casts Waxy Casts RBC Casts WBC Casts Urine Mucus Urine Trichomonas Urine Yeast Urine Opiates Screen Urine Methadone Screen Ur Barbiturates Screen Valproic Acid Ur Phencyclidine Scrn Ur Amphetamines Screen U Methamphetamin-MDMA U Benzodiazepines Scrn Urine Cocaine Screen U Cannabinoids Screen Ur Drug Screen Comment Ethyl Alcohol COVID-19 ([facility]) 04/25/20 04/25/20 05:05 05:05 WBC 15.9 H RBC 3.33 L Hgb 10.4 L Hct 31.9 L MCV 95.8 H MCH 31.2 MCHC 32.6 RDW Std Deviation 44.6 H RDW Coeff of Bel 12.7 Plt Count 213 MPV 10.4 Immature Gran % (Auto) 0.400 Neut % (Auto) 68.4 Lymph % (Auto) 16.0 L Coffee % (Auto) 12.7 H Eos % (Auto) 2.2 Baso % (Auto) 0.3 Absolute Neuts (auto) 10.9 H Absolute Lymphs (auto) 2.53 Nucleated RBC % 0 Differential Comment COMMENT Diff Path Review May foll PT INR APTT Sodium 143 Potassium 3.4 L Chloride 114 H Carbon Dioxide 23.0 Anion Gap 6 BUN 8 Creatinine 0.65 L Estim Creat Clear Calc 141.77 Est GFR (MDRD) Af Amer 171 Est GFR (MDRD) Non-Af 141 BUN/Creatinine Ratio 12.3 Glucose 89 Lactic Acid Calcium 7.3 L Total Bilirubin 0.20 AST 21 ALT 16 Alkaline Phosphatase 52 Troponin I Total Protein 5.8 L Albumin 2.2 L Globulin 3.6 Albumin/Globulin Ratio 0.6 L TSH Urine Color Urine Clarity Urine pH Ur Specific [place] U Specif Grav (Refrac) Urine Protein Urine Glucose (UA) Urine Ketones Urine Occult Blood Urine Nitrite Urine Bilirubin Urine Urobilinogen Ur Leukocyte Esterase Urine RBC Urine WBC Ur Squamous Epith Cells Ur Transition Epith Cell Ur Renal Epithelial Cell Calcium Oxalate Crystal Uric Acid Crystals Triple Phos Crystals Other Crystals Amorphous Sediment Urine Bacteria Hyaline Casts Fine Granular Casts Coarse Granular Casts Waxy Casts RBC Casts WBC Casts Urine Mucus Urine Trichomonas Urine Yeast Urine Opiates Screen Urine Methadone Screen Ur Barbiturates Screen Valproic Acid Ur Phencyclidine Scrn Ur Amphetamines Screen U Methamphetamin-MDMA U Benzodiazepines Scrn Urine Cocaine Screen U Cannabinoids Screen Ur Drug Screen Comment Ethyl Alcohol COVID-19 ([facility]) - Other Studies Radiology: [] reviewed Other Studies: [] Route of nutrition/ use of supplements: [] Nutritional Intake: [] IV Site: [] Cleaning Catheter: [] - Physical Exam General: Lethargic, Non-Cooperative HEENT: Atraumatic, PERRLA Neck: Supple, No Nodes Lungs: Clear to auscultation, Normal air movement Cardiovascular: Tachycardic Abdomen: Soft, Non Tender, Non-Distended Extremities: No edema Skin: No rashes IV Site: Peripheral, without redness Musculoskeletal: No Tenderness to Palpation of Joints or Extremities - Assessment/Plan Antibiotics: [] Assessment/Plan: [] Active and Suspected Problems (Last Reviewed 04/24/20 @ 16:[address] Alexis Murray MD) Septic shock (Acute) Due to GNR bacteremia, suspect urinary source. Lactate 4.7, now normal. Fever to 103.3, improved. UA with 500 leuk est, (+) nitrite, mild pyuria. Ucx pending. Stop acyclovir, low suspicion for aseptic meningitis given symptoms and timing. Cont vanc/ceftriaxone for now. Will follow, thank you
--- NOTE | 2020-04-25 10:33 | PCM.PN.HOSP ---
Patient Problems: Active and Suspected Problems (Last Reviewed 04/24/20 @ 16:[address] Alexis Murray MD) Bacteremia (Acute) Septic shock (Acute) Subjective: Patient seen and examined. He was asleep and difficult to arouse. Unable to do review of systems as patient was sound asleep. Vitals are stable today and her saturating at 96% on room air. Labs significant for potassium of 3.4. WBC is up to 15.9 today. Vitals/I&O's: Vital Signs Temp Pulse Resp BP Pulse Ox 98.6 F 75 20 H 98/60 96 04/25/20 10:00 04/25/20 10:00 04/25/20 10:00 04/25/20 10:00 04/25/20 10:00 Oxygen Flow Rate (L/min) 2 Oxygen Delivery Method Room Air Weight: 180 lb 5.41 oz Body Mass Index (BMI) 26.6 Intake and Output for Last 24 Hours 04/23/20 04/24/20 04/25/20 23:59 23:59 23:59 Intake Total 3669.37 / 3669.37 1266.92 / 1266.92 Output Total 1100 / 1300 1810 / 1810 Balance 2569.37 / 2369.37 -543.08 / -543.08 General: Lethargic, - - deeply asleep HEENT: Atraumatic, PERRLA, EOMI, Normocephalic Oral: Dry Mucosa Neck: Supple, No JVD, Negative Carotid Bruits Lungs: Clear to auscultation, Normal air movement Cardiovascular: Regular rate, Regular Rhythm, Normal S1, Normal S2, No murmurs Abdomen: Bowel Sounds Present, Soft, Non Tender, Non-Distended, No Hepato-splenomegaly Extremities: No clubbing, No cyanosis, No edema, Capillary Refill Less than 3 Seconds Skin: No rashes, No breakdown Musculoskeletal: No Tenderness to Palpation of Joints or Extremities Lymphatic: No Cervical, Supraclavicular, or Inguinal Adenopathy Neurological: Cranial nerves II-XII grossly intact, Neuro grossly intact, Motor Exam 5/5 strength throughout Psych/Mental Status: - - fast asleep Microbiology Past 72 Hours 04/24/20 12:55 Blood Culture (Wb) - Arm Right Blood Culture - Preliminary Laboratory Results 04/24/20 12:55: WBC 9.2, RBC 4.56 L, Hgb 14.8, Hct 43.8, MCV 96.1 H, MCH 32.5 H, MCHC 33.8, RDW Std Deviation 43.5, RDW Coeff of Bel 12.3, Plt Count 261, MPV 10.8, Immature Gran % (Auto) 0.400, Neut % (Auto) 94.3 H, Lymph % (Auto) 2.8 L, [place] % (Auto) 1.1, Eos % (Auto) 1.1, Baso % (Auto) 0.3, Absolute Neuts (auto) 8.7 H, Absolute Lymphs (auto) 0.26 L, Nucleated RBC % 0, Differential Comment COMMENT 04/24/20 12:55: PT 14.1, INR 1.1, APTT 26.0 04/24/20 12:55: Sodium 144, Potassium 3.5, Chloride 109 H, Carbon Dioxide 26.0, Anion Gap 9, BUN 12, Creatinine 1.38 H, Estim Creat Clear Calc 66.78, Est GFR (MDRD) Af Amer 72, Est GFR (MDRD) Non-Af 60, BUN/Creatinine Ratio 8.7 L, Glucose 118 H, Calcium 8.8, Total Bilirubin 0.50, AST 40 H, ALT 26, Alkaline Phosphatase 80, Total Protein 8.3 H, Albumin 3.3, Globulin 5.0 H, Albumin/Globulin Ratio 0.7 L 04/24/20 12:55: Lactic Acid 4.7 H* 04/24/20 12:55: Ethyl Alcohol 3.0 04/24/20 12:55: Valproic Acid 90 04/24/20 12:55: Troponin I < 0.015, TSH 3.44 04/24/20 13:15: Urine Opiates Screen NEGATIVE, Urine Methadone Screen NEGATIVE, Ur Barbiturates Screen POSITIVE H, Ur Phencyclidine Scrn NEGATIVE, Ur Amphetamines Screen NEGATIVE, U Methamphetamin-MDMA NEGATIVE, U Benzodiazepines Scrn NEGATIVE, Urine Cocaine Screen NEGATIVE, U Cannabinoids Screen NEGATIVE, Ur Drug Screen Comment 04/24/20 13:15: Urine Color Cancelled, Urine Clarity Cancelled, Urine pH Cancelled, Ur Specific [place] Cancelled, U Specif Grav (Refrac) Cancelled, Urine Protein Cancelled, Urine Glucose (UA) Cancelled, Urine Ketones Cancelled, Urine Occult Blood Cancelled, Urine Nitrite Cancelled, Urine Bilirubin Cancelled, Urine Urobilinogen Cancelled, Ur Leukocyte Esterase Cancelled, Urine RBC Cancelled, Urine WBC Cancelled, Ur Squamous Epith Cells Cancelled, Ur Transition Epith Cell Cancelled, Ur Renal Epithelial Cell Cancelled, Calcium Oxalate Crystal Cancelled, Uric Acid Crystals Cancelled, Triple Phos Crystals Cancelled, Other Crystals Cancelled, Amorphous Sediment Cancelled, Urine Bacteria Cancelled, Hyaline Casts Cancelled, Fine Granular Casts Cancelled, Coarse Granular Casts Cancelled, Waxy Casts Cancelled, RBC Casts Cancelled, WBC Casts Cancelled, Urine Mucus Cancelled, Urine Trichomonas Cancelled, Urine Yeast Cancelled 04/24/20 13:15: Urine Color Yellow, Urine Clarity Sl. Cloudy, Urine pH 6.0, Ur Specific [place] 1.010, Urine Protein 30 H, Urine Glucose (UA) Normal, Urine Ketones 50 H, Urine Occult Blood 150 H, Urine Nitrite Positive H, Urine Bilirubin Negative, Urine Urobilinogen 1 H, Ur Leukocyte Esterase 500 H, Urine RBC 0 SEEN, Urine WBC 10-25 SEEN, Ur Squamous Epith Cells 0-5 SEEN, Urine Bacteria 1+, Urine Mucus 0 SEEN 04/24/20 13:19: COVID-19 ([facility]) Not Detected 04/24/20 16:30: Valproic Acid 71 04/24/20 16:30: Lactic Acid 3.8 H* 04/24/20 21:25: Lactic Acid 2.5 H* 04/25/20 01:40: Lactic Acid 1.2 04/25/20 05:05: WBC 15.9 H, RBC 3.33 L, Hgb 10.4 L, Hct 31.9 L, MCV 95.8 H, MCH 31.2, MCHC 32.6, RDW Std Deviation 44.6 H, RDW Coeff of Bel 12.7, Plt Count 213, MPV 10.4, Immature Gran % (Auto) 0.400, Neut % (Auto) 68.4, Lymph % (Auto) 16.0 L, [place] % (Auto) 12.7 H, Eos % (Auto) 2.2, Baso % (Auto) 0.3, Absolute Neuts (auto) 10.9 H, Absolute Lymphs (auto) 2.53, Nucleated RBC % 0, Differential Comment COMMENT, Diff Path Review January04/25/20 05:05: Sodium 143, Potassium 3.4 L, Chloride 114 H, Carbon Dioxide 23.0, Anion Gap 6, BUN 8, Creatinine 0.65 L, Estim Creat Clear Calc 141.77, Est GFR (MDRD) Af Amer 171, Est GFR (MDRD) Non-Af 141, BUN/Creatinine Ratio 12.3, Glucose 89, Calcium 7.3 L, Total Bilirubin 0.20, AST 21, ALT 16, Alkaline Phosphatase 52, Total Protein 5.8 L, Albumin 2.2 L, Globulin 3.6, Albumin/Globulin Ratio 0.6 L Current Medications Acetaminophen (Tylenol) 650 mg RECTAL Q4H PRN PRN PRN Reason: Pain Score 1-10/Temp > 100.7 F Enoxaparin Sodium (Lovenox) 40 mg SC DAILY [facility] Last Admin: 04/25/20 10:15 Dose: 40 mg Documented by: Sodium Chloride () 1,000 mls @ 100 mls/hr IV .Q10H [facility] Last Admin: 04/25/20 06:25 Dose: 100 mls/hr Documented by: Ceftriaxone Sodium 2 gm/ (Sodium Chloride) 50 mls @ 100 mls/hr IV Q12 [facility] Last Admin: 04/25/20 10:12 Dose: 100 mls/hr Documented by: Sodium Chloride () 250 mls @ 15 mls/hr IV .[id number] PRN PRN Reason: Saline Flush Last Infusion: 04/25/20 04:32 Dose: 0 mls/hr Documented by: Sodium Chloride () 250 mls @ 15 mls/hr IV .[id number] PRN PRN Reason: Additional IVPB Infusion Vancomycin IV Pharmacy to Dose (1 ea/ Sodium Chloride) 500 mls @ 250 mls/hr IV PRN PRN; Protocol PRN Reason: Rx to Dose Vancomycin HCl 1,250 mg/ (Sodium Chloride) 275 mls @ 167 mls/hr IV Q12H [facility] Last Infusion: 04/25/20 06:26 Dose: Infused Documented by: Ondansetron HCl (Zofran) 4 mg IV Q8H PRN PRN PRN Reason: NAUSEA/VOMITING Phenobarbital (Phenobarbital) 65 mg IV DAILY [facility] Last Admin: 04/25/20 10:13 Dose: 65 mg Documented by: Sodium Chloride () 10 - 40 ml IV UD PRN PRN Reason: SALINE FLUSH Last Admin: 04/25/20 08:23 Dose: 20 ml Documented by: STROKE Vital Signs/Narrative: Vital Signs Temp Pulse Resp BP Pulse Ox 04/25/20 10:00 98.6 F 75 20 H 98/60 96 04/25/20 09:00 98.6 F 74 19 H 98/64 97 04/25/20 08:00 98.5 F 86 19 H 104/66 97 04/25/20 07:29 81 04/25/20 07:00 84 20 H 101/65 96 Medical Necessity - Tobacco Use Smoking Status: Never smoker Assessment/Plan All Active Problems (Last Reviewed 04/24/20 @ 16:[address] Alexis Murray MD) Bacteremia (Acute) Septic shock (Acute) 1. Septic shock due to acute cystitis BP 98/60 this morning, he is howeer asymptomatic, so this may be where he usually runs. received IVF per sepsis protocol lactic acid trended down to 1.2 on IV ceftriaxone, vancomycin and acyclovir due to concerns about possible encephalitis per ID, low suspicfion for meningitis. continue ceftriaxone and vancomycin for now. ID on board. 2. Acute cystitis: on IV rocephin. Urine culture and blood culture pending 3. Acute metabolic encephalopathy thre was a concern about meningitis vs encephalitis on admission, hence addditon of acyclovir ID on board PT OT consult fall precautions 4. WANDER: Cr down to 0.65 from 1.38 on admission 5. Seizure disorder: now on IV phenobarb 65mg. Depakote and clonazepam for now 6. Marfan's syndrome s/p multiple reconstructive surgeries due to have CT of the chest to follow up on aortic root dilatation tomorrow; not going to be done due to current illness. to have CT after discharge and before leaving for home. 7. Hypothyroidism: on synthroid 8. Hypertension: Atenolol on hold. Blood pressure stable this morning. DVT Prophylaxis: Lovenox CODE STATUS: Full code Inpatient E&M: 74600 Subs Hosp L3
--- NOTE | 2020-04-25 11:51 | CASEMGMT ---
RN CM ASSESSMENT Pt has Marfan's Syndrome and developmental delays. Call placed to pt's mother to complete initial RN CM assessment. Introduced self and role of RN CM. Mom voices understanding and consents to assessment at this time. Care providers, pharmacy, and demographics verified at this time. PCP: Dr Callahan Specialists: Dr Pierre--cardiology. Dr Carranza-- neurology in [place]. Preferred Pharmacy: [facility] Retail Insurance: [facility] Dual Prescription Benefit: Yes Living Will/HPOA: Pt does not have LW/HCPOA. LNOK: Mother, Jacki. Father, Alhaji Living Arrangements: Lives w/his parents and brother, Estevan, in 2-story home. Siderails present on one side of stairs. Pt's bedroom is on 2nd floor. Bathroom is on main floor. Per mother, pt is able to navigate the stairs well and utilizes the rails. Mom assists with bathing and dressing. Pt is able to help a little. Pt is able to feed self. Mom/family provide meals and manages appts/medications. Transportation: Father or sister DME Has a shower chair that mom encourages pt to use, but states he usually does not want to. Has a BSC available but does not need/use. Ambulates independently w/no DME Mom states no need for further DME at this time. HHC/SNF: No history of either. Pt's mom would prefer pt return home and would like HHC if possible. !st choice of HHC agency is [facility]. If pt not well enough to return home, mom states would be agreeable to SNF if neeeded and 1st choice is TCU. CM to follow for any discharge planning/needs. Mom voices no further concerns/needs at this time. Advised mom to ask for CM if any further questions/concerns/needs arise. Voices understanding. PLAN: TBD. Home w/family support and [facility] if possible or SNF (TCU 1st preference) if needed PT/OT evals pending. Jennifer BSN RN CM
[2020-04-25 12:04] LABS: Pathologist Review Reviewed
--- NOTE | 2020-04-25 12:45 | NURSING ---
Called patient's mother to update on the transfer of her son out of ICU to [facility]. Mother thanked this RN for the call and states she will be in to see her son in a little while. Updated Georges as well.
[2020-04-26] VITALS (10 sets, daily range): BP systolic 96–118; BP diastolic 58–74; PULSE 59–87; RESP 16–20; TEMP 35.7–36.9; O2SAT 95–98
[2020-04-26] MEDS: 0.9% Normal Saline 1,000 ML 100 ML IV ×2 (04:26→16:47)
[2020-04-26 04:28] LABS: Absolute Lymphocyte Count 1.86 X10^3/uL (0.83-4.51); Absolute Neutrophil Count 7.1 X10^3/uL (2.0-7.7); Basophil# 0.03 X10^3/uL; Basophil% 0.3 % (0-1); Eosinophil# 0.05 X10^3/uL; Eosinophils% 0.5 % (0-5); Hematocrit 32.1 % (40-54); Hemoglobin 10.9 g/dL (13.0-16.5); Lymphocyte # 1.86 X10^3/ul (4.0); Lymphocyte % 18.4 % (19-41); Mean Corpuscular Hgb 31.9 pg (27.0-32.0); Mean Corpuscular Volume 93.9 fL (80-94); Mean Platelet Vol. 10.5 fl (6.2-12.0); Monocyte# 1.07 X10^3/uL; Monocyte% 10.6 % (0-10); NRBC Flagged by Analyzer 0 % (0-5); Neutrophil # 7.08 X10^3/uL (2.7-7.7); Neutrophil % 69.9 % (47-70); Platelet Count 206 K/mm3 (150-450); RBC Distribution Width CV 12.6 % (11.6-14.6); RBC Distribution Width SD 43.4 fl (35.1-43.9); Red Blood Count 3.42 M/mm3 (4.6-6.2); White Blood Count 10.1 K/mm3 (4.4-11.0)
[2020-04-26 04:54] LABS: Vancomycin, Trough Level 10.6 ug/mL (5.0-15.0)
[2020-04-26 05:12] LABS: Anion Gap 10 (5-15); BUN 6 mg/dL (7-18); BUN/Creat Ratio 11.7 RATIO (10-20); Calcium,Total 7.3 mg/dL (8.5-10.1); Chloride 113 mmol/L (98-107); Creatinine, Serum 0.52 mg/dL (0.70-1.30); EST Glomerular Filtration Rate 186 mL/min (>60); Est Glom Filt Rate - Afr Amer 225 mL/min (>60); Estimated Creatinine Clearance 177.21 ml/min; Glucose 87 mg/dL (74-106); Potassium 3.5 mmol/L (3.5-5.1); Sodium Level 145 mmol/L (136-145)
--- NOTE | 2020-04-26 06:05 | PCM.RX.CS ---
Consult Pharmacy has been consulted to manage selected antiobiotic: Vancomycin Type of Consult: Follow-up Labs: Sodium 145 mmol/L (136-145) 04/26/20 04:15 Potassium 3.5 mmol/L (3.5-5.1) 04/26/20 04:15 Chloride 113 mmol/L (98-107) H 04/26/20 04:15 Carbon Dioxide 22.0 mmol/L (21.0-32.0) 04/26/20 04:15 Anion Gap 10 (5-15) 04/26/20 04:15 BUN 6 mg/dL (7-18) L 04/26/20 04:15 Creatinine 0.52 mg/dL (0.70-1.30) L 04/26/20 04:15 Est GFR (MDRD) Af Amer 225 mL/min (>60) 04/26/20 04:15 Est GFR (MDRD) Non-Af 186 mL/min (>60) 04/26/20 04:15 BUN/Creatinine Ratio 11.7 RATIO (10-20) 04/26/20 04:15 Glucose 87 mg/dL (74-106) 04/26/20 04:15 Vancomycin Trough 10.6 ug/mL (5.0-15.0) 04/26/20 04:15 Microbiology: Microbiology 04/24/20 13:15 Urine Catheter - Cleaning Urine Culture - Preliminary Presumptive E. coli 04/24/20 12:55 Blood Culture (Wb) - Arm Right Blood Culture - Preliminary Goal Trough: 15-20 mcg/mL Pharmacy Plan for Drug Dosing: Pharmacy Service will continue to monitor and adjust dosing as required. TROUGH 10.6 INCREASE TO 1750 Q12H Follow-Up Labs: Trough Vancomycin Labs to be done on [date and time ordered]: 04/28 @ 2957
--- NOTE | 2020-04-26 10:08 | PCM.PN.PUL ---
Patient Problems: Active and Suspected Problems (Last Reviewed 04/24/20 @ 16:[address] Alexis Murray MD) Bacteremia (Acute) Septic shock (Acute) Subjective: The patient was seen and examined at the bedside this morning. Events from the last 24 hours have been reviewed. The patient is currently afebrile, hemodynamically stable and maintaining appropriate oxygen saturations on room air. The patient has done well clinically following transfer out of the medical intensive care unit yesterday. Objective: The patient's most recent lab work, culture data and imaging studies have all been personally reviewed. Urine culture was positive for E. coli. 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 - Physical Exam Vitals/I&O's: Vital Signs Temp Pulse Resp BP Pulse Ox 98.5 F 70 20 H 110/58 L 95 04/26/20 04:21 04/26/20 05:53 04/26/20 04:21 04/26/20 04:21 04/26/20 04:21 Oxygen Flow Rate (L/min) 2 Oxygen Delivery Method Room Air Weight: 178 lb 2.136 oz Body Mass Index (BMI) 26.6 Intake and Output for Last 24 Hours 04/24/20 04/25/20 04/26/20 23:59 23:59 23:59 Intake Total 3669.37 / 3669.37 2984.26 / 2984.26 1280.00 / 1280.00 Output Total 1100 / 1300 2860 / 2860 Balance 2569.37 / 2369.37 124.26 / 124.26 1280.00 / 1280.00 General: Alert, No apparent distress HEENT: Atraumatic, Normocephalic Oral: Dry Mucosa, - - Poor dentition Neck: Supple, No Nodes, Trachea Midline Lungs: Diminished Cardiovascular: Regular rate, Regular Rhythm Abdomen: Bowel Sounds Present, Soft, Non Tender Extremities: No clubbing, No cyanosis Skin: No breakdown Musculoskeletal: No Tenderness to Palpation of Joints or Extremities Lymphatic: No Cervical, Supraclavicular, or Inguinal Adenopathy Neurological: - - No focal neurological deficits. Still nonverbal. Psych/Mental Status: Flat Affect Labs (Last 48 Hours) 04/24/20 04/24/20 04/24/20 12:55 12:55 12:55 WBC 9.2 RBC 4.56 L Hgb 14.8 Hct 43.8 MCV 96.1 H MCH 32.5 H MCHC 33.8 RDW Std Deviation 43.5 RDW Coeff of Bel 12.3 Plt Count 261 MPV 10.8 Immature Gran % (Auto) 0.400 Neut % (Auto) 94.3 H Lymph % (Auto) 2.8 L [place] % (Auto) 1.1 Eos % (Auto) 1.1 Baso % (Auto) 0.3 Absolute Neuts (auto) 8.7 H Absolute Lymphs (auto) 0.26 L Nucleated RBC % 0 Differential Comment COMMENT Diff Path Review PT 14.1 INR 1.1 APTT 26.0 Sodium 144 Potassium 3.5 Chloride 109 H Carbon Dioxide 26.0 Anion Gap 9 BUN 12 Creatinine 1.38 H Estim Creat Clear Calc 66.78 Est GFR (MDRD) Af Amer 72 Est GFR (MDRD) Non-Af 60 BUN/Creatinine Ratio 8.7 L Glucose 118 H Lactic Acid Calcium 8.8 Total Bilirubin 0.50 AST 40 H ALT 26 Alkaline Phosphatase 80 Troponin I Total Protein 8.3 H Albumin 3.3 Globulin 5.0 H Albumin/Globulin Ratio 0.7 L TSH Urine Color Urine Clarity Urine pH Ur Specific [place] U Specif Grav (Refrac) Urine Protein Urine Glucose (UA) Urine Ketones Urine Occult Blood Urine Nitrite Urine Bilirubin Urine Urobilinogen Ur Leukocyte Esterase Urine RBC Urine WBC Ur Squamous Epith Cells Ur Transition Epith Cell Ur Renal Epithelial Cell Calcium Oxalate Crystal Uric Acid Crystals Triple Phos Crystals Other Crystals Amorphous Sediment Urine Bacteria Hyaline Casts Fine Granular Casts Coarse Granular Casts Waxy Casts RBC Casts WBC Casts Urine Mucus Urine Trichomonas Urine Yeast Vancomycin Trough Urine Opiates Screen Urine Methadone Screen Ur Barbiturates Screen Valproic Acid Ur Phencyclidine Scrn Ur Amphetamines Screen U Methamphetamin-MDMA U Benzodiazepines Scrn Urine Cocaine Screen U Cannabinoids Screen Ur Drug Screen Comment Ethyl Alcohol COVID-19 ([facility]) 04/24/20 04/24/20 04/24/20 12:55 12:55 12:55 WBC RBC Hgb Hct MCV MCH MCHC RDW Std Deviation RDW Coeff of Bel Plt Count MPV Immature Gran % (Auto) Neut % (Auto) Lymph % (Auto) [place] % (Auto) Eos % (Auto) Baso % (Auto) Absolute Neuts (auto) Absolute Lymphs (auto) Nucleated RBC % Differential Comment Diff Path Review PT INR APTT Sodium Potassium Chloride Carbon Dioxide Anion Gap BUN Creatinine Estim Creat Clear Calc Est GFR (MDRD) Af Amer Est GFR (MDRD) Non-Af BUN/Creatinine Ratio Glucose Lactic Acid 4.7 H* Calcium Total Bilirubin AST ALT Alkaline Phosphatase Troponin I Total Protein Albumin Globulin Albumin/Globulin Ratio TSH Urine Color Urine Clarity Urine pH Ur Specific [place] U Specif Grav (Refrac) Urine Protein Urine Glucose (UA) Urine Ketones Urine Occult Blood Urine Nitrite Urine Bilirubin Urine Urobilinogen Ur Leukocyte Esterase Urine RBC Urine WBC Ur Squamous Epith Cells Ur Transition Epith Cell Ur Renal Epithelial Cell Calcium Oxalate Crystal Uric Acid Crystals Triple Phos Crystals Other Crystals Amorphous Sediment Urine Bacteria Hyaline Casts Fine Granular Casts Coarse Granular Casts Waxy Casts RBC Casts WBC Casts Urine Mucus Urine Trichomonas Urine Yeast Vancomycin Trough Urine Opiates Screen Urine Methadone Screen Ur Barbiturates Screen Valproic Acid 90 Ur Phencyclidine Scrn Ur Amphetamines Screen U Methamphetamin-MDMA U Benzodiazepines Scrn Urine Cocaine Screen U Cannabinoids Screen Ur Drug Screen Comment Ethyl Alcohol 3.0 COVID-19 ([facility]) 04/24/20 04/24/20 04/24/20 12:55 13:15 13:15 WBC RBC Hgb Hct MCV MCH MCHC RDW Std Deviation RDW Coeff of Bel Plt Count MPV Immature Gran % (Auto) Neut % (Auto) Lymph % (Auto) [place] % (Auto) Eos % (Auto) Baso % (Auto) Absolute Neuts (auto) Absolute Lymphs (auto) Nucleated RBC % Differential Comment Diff Path Review PT INR APTT Sodium Potassium Chloride Carbon Dioxide Anion Gap BUN Creatinine Estim Creat Clear Calc Est GFR (MDRD) Af Amer Est GFR (MDRD) Non-Af BUN/Creatinine Ratio Glucose Lactic Acid Calcium Total Bilirubin AST ALT Alkaline Phosphatase Troponin I < 0.015 Total Protein Albumin Globulin Albumin/Globulin Ratio TSH 3.44 Urine Color Cancelled Urine Clarity Cancelled Urine pH Cancelled Ur Specific [place] Cancelled U Specif Grav (Refrac) Cancelled Urine Protein Cancelled Urine Glucose (UA) Cancelled Urine Ketones Cancelled Urine Occult Blood Cancelled Urine Nitrite Cancelled Urine Bilirubin Cancelled Urine Urobilinogen Cancelled Ur Leukocyte Esterase Cancelled Urine RBC Cancelled Urine WBC Cancelled Ur Squamous Epith Cells Cancelled Ur Transition Epith Cell Cancelled Ur Renal Epithelial Cell Cancelled Calcium Oxalate Crystal Cancelled Uric Acid Crystals Cancelled Triple Phos Crystals Cancelled Other Crystals Cancelled Amorphous Sediment Cancelled Urine Bacteria Cancelled Hyaline Casts Cancelled Fine Granular Casts Cancelled Coarse Granular Casts Cancelled Waxy Casts Cancelled RBC Casts Cancelled WBC Casts Cancelled Urine Mucus Cancelled Urine Trichomonas Cancelled Urine Yeast Cancelled Vancomycin Trough Urine Opiates Screen NEGATIVE Urine Methadone Screen NEGATIVE Ur Barbiturates Screen POSITIVE H Valproic Acid Ur Phencyclidine Scrn NEGATIVE Ur Amphetamines Screen NEGATIVE U Methamphetamin-MDMA NEGATIVE U Benzodiazepines Scrn NEGATIVE Urine Cocaine Screen NEGATIVE U Cannabinoids Screen NEGATIVE Ur Drug Screen Comment Ethyl Alcohol COVID-19 ([facility]) 04/24/20 04/24/20 04/24/20 13:15 13:19 16:30 WBC RBC Hgb Hct MCV MCH MCHC RDW Std Deviation RDW Coeff of Bel Plt Count MPV Immature Gran % (Auto) Neut % (Auto) Lymph % (Auto) [place] % (Auto) Eos % (Auto) Baso % (Auto) Absolute Neuts (auto) Absolute Lymphs (auto) Nucleated RBC % Differential Comment Diff Path Review PT INR APTT Sodium Potassium Chloride Carbon Dioxide Anion Gap BUN Creatinine Estim Creat Clear Calc Est GFR (MDRD) Af Amer Est GFR (MDRD) Non-Af BUN/Creatinine Ratio Glucose Lactic Acid Calcium Total Bilirubin AST ALT Alkaline Phosphatase Troponin I Total Protein Albumin Globulin Albumin/Globulin Ratio TSH Urine Color Yellow Urine Clarity Sl. Cloudy Urine pH 6.0 Ur Specific [place] 1.010 U Specif Grav (Refrac) Urine Protein 30 H Urine Glucose (UA) Normal Urine Ketones 50 H Urine Occult Blood 150 H Urine Nitrite Positive H Urine Bilirubin Negative Urine Urobilinogen 1 H Ur Leukocyte Esterase 500 H Urine RBC 0 SEEN Urine WBC 10-25 SEEN Ur Squamous Epith Cells 0-5 SEEN Ur Transition Epith Cell Ur Renal Epithelial Cell Calcium Oxalate Crystal Uric Acid Crystals Triple Phos Crystals Other Crystals Amorphous Sediment Urine Bacteria 1+ Hyaline Casts Fine Granular Casts Coarse Granular Casts Waxy Casts RBC Casts WBC Casts Urine Mucus 0 SEEN Urine Trichomonas Urine Yeast Vancomycin Trough Urine Opiates Screen Urine Methadone Screen Ur Barbiturates Screen Valproic Acid 71 Ur Phencyclidine Scrn Ur Amphetamines Screen U Methamphetamin-MDMA U Benzodiazepines Scrn Urine Cocaine Screen U Cannabinoids Screen Ur Drug Screen Comment Ethyl Alcohol COVID-19 ([facility]) Not Detected 04/24/20 04/24/20 04/25/20 16:30 21:25 01:40 WBC RBC Hgb Hct MCV MCH MCHC RDW Std Deviation RDW Coeff of Bel Plt Count MPV Immature Gran % (Auto) Neut % (Auto) Lymph % (Auto) [place] % (Auto) Eos % (Auto) Baso % (Auto) Absolute Neuts (auto) Absolute Lymphs (auto) Nucleated RBC % Differential Comment Diff Path Review PT INR APTT Sodium Potassium Chloride Carbon Dioxide Anion Gap BUN Creatinine Estim Creat Clear Calc Est GFR (MDRD) Af Amer Est GFR (MDRD) Non-Af BUN/Creatinine Ratio Glucose Lactic Acid 3.8 H* 2.5 H* 1.2 Calcium Total Bilirubin AST ALT Alkaline Phosphatase Troponin I Total Protein Albumin Globulin Albumin/Globulin Ratio TSH Urine Color Urine Clarity Urine pH Ur Specific [place] U Specif Grav (Refrac) Urine Protein Urine Glucose (UA) Urine Ketones Urine Occult Blood Urine Nitrite Urine Bilirubin Urine Urobilinogen Ur Leukocyte Esterase Urine RBC Urine WBC Ur Squamous Epith Cells Ur Transition Epith Cell Ur Renal Epithelial Cell Calcium Oxalate Crystal Uric Acid Crystals Triple Phos Crystals Other Crystals Amorphous Sediment Urine Bacteria Hyaline Casts Fine Granular Casts Coarse Granular Casts Waxy Casts RBC Casts WBC Casts Urine Mucus Urine Trichomonas Urine Yeast Vancomycin Trough Urine Opiates Screen Urine Methadone Screen Ur Barbiturates Screen Valproic Acid Ur Phencyclidine Scrn Ur Amphetamines Screen U Methamphetamin-MDMA U Benzodiazepines Scrn Urine Cocaine Screen U Cannabinoids Screen Ur Drug Screen Comment Ethyl Alcohol COVID-19 ([facility]) 04/25/20 04/25/20 04/26/20 05:05 05:05 04:15 WBC 15.9 H RBC 3.33 L Hgb 10.4 L Hct 31.9 L MCV 95.8 H MCH 31.2 MCHC 32.6 RDW Std Deviation 44.6 H RDW Coeff of Bel 12.7 Plt Count 213 MPV 10.4 Immature Gran % (Auto) 0.400 Neut % (Auto) 68.4 Lymph % (Auto) 16.0 L [place] % (Auto) 12.7 H Eos % (Auto) 2.2 Baso % (Auto) 0.3 Absolute Neuts (auto) 10.9 H Absolute Lymphs (auto) 2.53 Nucleated RBC % 0 Differential Comment COMMENT Diff Path Review Reviewed PT INR APTT Sodium 143 Potassium 3.4 L Chloride 114 H Carbon Dioxide 23.0 Anion Gap 6 BUN 8 Creatinine 0.65 L Estim Creat Clear Calc 141.77 Est GFR (MDRD) Af Amer 171 Est GFR (MDRD) Non-Af 141 BUN/Creatinine Ratio 12.3 Glucose 89 Lactic Acid Calcium 7.3 L Total Bilirubin 0.20 AST 21 ALT 16 Alkaline Phosphatase 52 Troponin I Total Protein 5.8 L Albumin 2.2 L Globulin 3.6 Albumin/Globulin Ratio 0.6 L TSH Urine Color Urine Clarity Urine pH Ur Specific [place] U Specif Grav (Refrac) Urine Protein Urine Glucose (UA) Urine Ketones Urine Occult Blood Urine Nitrite Urine Bilirubin Urine Urobilinogen Ur Leukocyte Esterase Urine RBC Urine WBC Ur Squamous Epith Cells Ur Transition Epith Cell Ur Renal Epithelial Cell Calcium Oxalate Crystal Uric Acid Crystals Triple Phos Crystals Other Crystals Amorphous Sediment Urine Bacteria Hyaline Casts Fine Granular Casts Coarse Granular Casts Waxy Casts RBC Casts WBC Casts Urine Mucus Urine Trichomonas Urine Yeast Vancomycin Trough 10.6 Urine Opiates Screen Urine Methadone Screen Ur Barbiturates Screen Valproic Acid Ur Phencyclidine Scrn Ur Amphetamines Screen U Methamphetamin-MDMA U Benzodiazepines Scrn Urine Cocaine Screen U Cannabinoids Screen Ur Drug Screen Comment Ethyl Alcohol COVID-19 ([facility]) 04/26/20 04/26/20 04:15 04:15 WBC 10.1 RBC 3.42 L Hgb 10.9 L Hct 32.1 L MCV 93.9 MCH 31.9 MCHC 34.0 RDW Std Deviation 43.4 RDW Coeff of Bel 12.6 Plt Count 206 MPV 10.5 Immature Gran % (Auto) 0.300 Neut % (Auto) 69.9 Lymph % (Auto) 18.4 L [place] % (Auto) 10.6 H Eos % (Auto) 0.5 Baso % (Auto) 0.3 Absolute Neuts (auto) 7.1 Absolute Lymphs (auto) 1.86 Nucleated RBC % 0 Differential Comment Diff Path Review PT INR APTT Sodium 145 Potassium 3.5 Chloride 113 H Carbon Dioxide 22.0 Anion Gap 10 BUN 6 L Creatinine 0.52 L Estim Creat Clear Calc 177.21 Est GFR (MDRD) Af Amer 225 Est GFR (MDRD) Non-Af 186 BUN/Creatinine Ratio 11.7 Glucose 87 Lactic Acid Calcium 7.3 L Total Bilirubin AST ALT Alkaline Phosphatase Troponin I Total Protein Albumin Globulin Albumin/Globulin Ratio TSH Urine Color Urine Clarity Urine pH Ur Specific [place] U Specif Grav (Refrac) Urine Protein Urine Glucose (UA) Urine Ketones Urine Occult Blood Urine Nitrite Urine Bilirubin Urine Urobilinogen Ur Leukocyte Esterase Urine RBC Urine WBC Ur Squamous Epith Cells Ur Transition Epith Cell Ur Renal Epithelial Cell Calcium Oxalate Crystal Uric Acid Crystals Triple Phos Crystals Other Crystals Amorphous Sediment Urine Bacteria Hyaline Casts Fine Granular Casts Coarse Granular Casts Waxy Casts RBC Casts WBC Casts Urine Mucus Urine Trichomonas Urine Yeast Vancomycin Trough Urine Opiates Screen Urine Methadone Screen Ur Barbiturates Screen Valproic Acid Ur Phencyclidine Scrn Ur Amphetamines Screen U Methamphetamin-MDMA U Benzodiazepines Scrn Urine Cocaine Screen U Cannabinoids Screen Ur Drug Screen Comment Ethyl Alcohol COVID-19 ([facility]) Microbiology 04/24/20 12:50 Blood Culture (Wb) - Left Hand Blood Culture - Preliminary No growth in 48 hours. 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 coli Clinical Impression(s) from Imaging Studies Chest X-Ray 04/24/20 12:52 IMPRESSION: Normal x-ray examination of the chest. Electronically Signed: Pravin Elias, at 14:09 EDT , Service support , Brain CT 04/24/20 13:01 IMPRESSION: Normal unenhanced CT scan of the brain. Electronically Signed: Pravin Elias, at 14:08 EDT , Service support , Cervical Spine CT 04/24/20 13:01 IMPRESSION: Degenerative changes, as described above. Electronically Signed: Pravin Elias, at 14:08 EDT , Service support , Current Medications Acetaminophen (Tylenol) 650 mg RECTAL Q4H PRN PRN PRN Reason: Pain Score 1-10/Temp > 100.7 F Enoxaparin Sodium (Lovenox) 40 mg SC DAILY [facility] Last Admin: 04/25/20 10:15 Dose: 40 mg Documented by: Sodium Chloride () 1,000 mls @ 100 mls/hr IV .Q10H [facility] Last Infusion: 04/26/20 06:20 Dose: 100 mls/hr Documented by: Ceftriaxone Sodium 2 gm/ (Sodium Chloride) 50 mls @ 100 mls/hr IV Q12 [facility] Last Infusion: 04/25/20 22:35 Dose: Infused Documented by: Sodium Chloride () 250 mls @ 15 mls/hr IV .[id number] PRN PRN Reason: Saline Flush Last Infusion: 04/26/20 04:31 Dose: Infused Documented by: Sodium Chloride () 250 mls @ 15 mls/hr IV .[id number] PRN PRN Reason: Additional IVPB Infusion Vancomycin IV Pharmacy to Dose (1 ea/ Sodium Chloride) 500 mls @ 250 mls/hr IV PRN PRN; Protocol PRN Reason: Rx to Dose Vancomycin HCl 1,750 mg/ (Sodium Chloride) 535 mls @ 250 mls/hr IV Q12H [facility] Ondansetron HCl (Zofran) 4 mg IV Q8H PRN PRN PRN Reason: NAUSEA/VOMITING Phenobarbital (Phenobarbital) 65 mg IV DAILY [facility] Last Admin: 04/25/20 10:13 Dose: 65 mg Documented by: Sodium Chloride () 10 - 40 ml IV UD PRN PRN Reason: SALINE FLUSH Last Admin: 04/25/20 08:23 Dose: 20 ml Documented by: Medical Necessity - Tobacco Use Smoking Status: Never smoker Assessment/Plan All Active Problems (Last Reviewed 04/24/20 @ 16:[address] Alexis Murray MD) Bacteremia (Acute) Septic shock (Acute) RECOMMENDATIONS: 1. Continue antimicrobials per ID recommendations. 2. Continue baseline antiepileptic medications. 3. Encourage incentive spirometer use and mobilize patient as tolerated. 4. Given the patient's lack of further ICU or pulmonary needs, will sign off. Please call with any additional questions. IMPRESSIONS: 1. Septic shock The patient presented to the hospital with altered mentation and fever and subsequently met septic shock criteria with an elevated lactate. Nevertheless, the patient was never hemodynamically unstable, nor did he require vasopressor support. The patient appears to have a gram-negative urinary tract source of infection with secondary hematogenous spread. He is on appropriate antimicrobials at this time. Infectious diseases is following to assist with antimicrobial management. 2. Encephalopathy Most likely secondary to the patient's underlying infectious etiology. Anticipate improvement in mentation as his underlying infection is addressed. 3. Acute kidney injury Resolved. Likely prerenal in etiology and related to #1. Creatinine has improved with volume expansion. Continue to monitor urine output. No indication for renal replacement therapy at this time. 4. Baseline MRDD/Marfan syndrome/hypothyroidism/history of epilepsy/hypertension Complicates care, management, recovery and prognosis. Continue baseline, outpatient medication regimen. This note was generated with [employer] dictation software. It may contain incorrect words, spelling, and punctuation that were not noted in checking the note before signing. Inpatient E&M: 94448 Subs Hosp L2
[2020-04-26] MEDS: Phenobarbital Sodium 65 MG/ML Vial IV (10:29)
[2020-04-26] MEDS: Enoxaparin 40 MG/0.4 ML Syringe SC (10:33)
--- NOTE | 2020-04-26 12:16 | PN_ITS ---
Patient Problems: Active and Suspected Problems (Last Reviewed 04/24/20 @ 16:[address] Alexis Murray MD) Bacteremia (Acute) Septic shock (Acute) Subjective: Patient seen and examined. He is alert but not communicating. He has remained hemodynamically stable. Per discussion with his nurse, no new events to address. Vitals/I&O's: Vital Signs Temp Pulse Resp BP Pulse Ox 97.8 F 63 16 102/62 98 04/26/20 11:49 04/26/20 11:49 04/26/20 11:49 04/26/20 11:49 04/26/20 11:49 Oxygen Flow Rate (L/min) 2 Oxygen Delivery Method Room Air Weight: 178 lb 2.136 oz Body Mass Index (BMI) 26.6 Intake and Output for Last 24 Hours 04/24/20 04/25/20 04/26/20 23:59 23:59 23:59 Intake Total 3669.37 / 3669.37 2984.26 / 2984.26 1280.00 / 1280.00 Output Total 1100 / 1300 2860 / 2860 Balance 2569.37 / 2369.37 124.26 / 124.26 1280.00 / 1280.00 General: alert, oriented, noncommunicative HEENT: Atraumatic, PERRLA, EOMI, Normocephalic Oral: Dry Mucosa Neck: Supple, No JVD, Negative Carotid Bruits Lungs: Clear to auscultation, Normal air movement Cardiovascular: Regular rate, Regular Rhythm, Normal S1, Normal S2, No murmurs Abdomen: Bowel Sounds Present, Soft, Non Tender, Non-Distended, No Hepato- splenomegaly Extremities: No clubbing, No cyanosis, No edema, Capillary Refill Less than 3 Seconds Skin: No rashes, No breakdown Musculoskeletal: No Tenderness to Palpation of Joints or Extremities Lymphatic: No Cervical, Supraclavicular, or Inguinal Adenopathy Neurological: Cranial nerves II-XII grossly intact, Neuro grossly intact, Motor Exam 5/5 strength throughout Psych/Mental Status: - - alert, flat affect Microbiology Past 72 Hours 04/24/20 12:50 Blood Culture (Wb) - Left Hand Blood Culture - Preliminary No growth in 48 hours. 04/24/20 12:55 Blood Culture (Wb) - Arm Right Blood Culture - Preliminary GNR lactose stripe matcher 04/24/20 13:15 Urine Catheter - Cleaning Urine Culture - Final Presumptive E. coli Laboratory Results 04/26/20 04:15: Vancomycin Trough 10.6 04/26/20 04:15: WBC 10.1, RBC 3.42 L, Hgb 10.9 L, Hct 32.1 L, MCV 93.9, MCH 31.9, MCHC 34.0, RDW Std Deviation 43.4, RDW Coeff of Bel 12.6, Plt Count 206, MPV 10.5, Immature Gran % (Auto) 0.300, Neut % (Auto) 69.9, Lymph % (Auto) 18.4 L, [place] % (Auto) 10.6 H, Eos % (Auto) 0.5, Baso % (Auto) 0.3, Absolute Neuts (auto) 7.1, Absolute Lymphs (auto) 1.86, Nucleated RBC % 0 04/26/20 04:15: Sodium 145, Potassium 3.5, Chloride 113 H, Carbon Dioxide 22.0, Anion Gap 10, BUN 6 L, Creatinine 0.52 L, Estim Creat Clear Calc 177.21, Est GFR (MDRD) Af Amer 225, Est GFR (MDRD) Non-Af 186, BUN/Creatinine Ratio 11.7, Glucose 87, Calcium 7.3 L Current Medications Acetaminophen (Tylenol) 650 mg RECTAL Q4H PRN PRN PRN Reason: Pain Score 1-10/Temp > 100.7 F Enoxaparin Sodium (Lovenox) 40 mg SC DAILY [facility] Last Admin: 04/26/20 10:33 Dose: 40 mg Documented by: Sodium Chloride () 1,000 mls @ 100 mls/hr IV .Q10H [facility] Last Infusion: 04/26/20 06:20 Dose: 100 mls/hr Documented by: Ceftriaxone Sodium 2 gm/ (Sodium Chloride) 50 mls @ 100 mls/hr IV Q12 [facility] Last Admin: 04/26/20 11:19 Dose: 100 mls/hr Documented by: Sodium Chloride () 250 mls @ 15 mls/hr IV .[id number] PRN PRN Reason: Saline Flush Last Admin: 04/26/20 11:21 Dose: 15 mls/hr Documented by: Sodium Chloride () 250 mls @ 15 mls/hr IV .[id number] PRN PRN Reason: Additional IVPB Infusion Vancomycin IV Pharmacy to Dose (1 ea/ Sodium Chloride) 500 mls @ 250 mls/hr IV PRN PRN; Protocol PRN Reason: Rx to Dose Vancomycin HCl 1,750 mg/ (Sodium Chloride) 535 mls @ 250 mls/hr IV Q12H [facility] Ondansetron HCl (Zofran) 4 mg IV Q8H PRN PRN PRN Reason: NAUSEA/VOMITING Phenobarbital (Phenobarbital) 65 mg IV DAILY [facility] Last Admin: 04/26/20 10:29 Dose: 65 mg Documented by: Sodium Chloride () 10 - 40 ml IV UD PRN PRN Reason: SALINE FLUSH Last Admin: 04/25/20 08:23 Dose: 20 ml Documented by: STROKE Vital Signs/Narrative: Vital Signs Temp Pulse Resp BP Pulse Ox 04/26/20 11:49 97.8 F 63 16 102/62 98 Medical Necessity - Tobacco Use Smoking Status: Never smoker Assessment/Plan All Active Problems (Last Reviewed 04/24/20 @ 16:[address] Alexis Murray MD) Bacteremia (Acute) Septic shock (Acute) 1. Septic shock due to acute cystitis * Stable. On IV ceftriaxone and vancomycin. * on IV ceftriaxone, vancomycin and acyclovir due to concerns about possible encephalitis * per ID, low suspicfion for meningitis. continue ceftriaxone and vancomycin for now. * ID on board. 2. Acute cystitis: * on IV rocephin. Urine culture E. coli and blood cultures grew gram-negative lactose stripe matcher in 1 out of 2 samples. * will dc IV vancomycin now 3. Acute metabolic encephalopathy * thre was a concern about meningitis vs encephalitis on admission, hence addditon of acyclovir * ID on board * PT OT consult * fall precautions * 4. WANDER: Cr down to 0.65 from 1.38 on admission 5. Seizure disorder: now on IV phenobarb 65mg. Depakote and clonazepam for now 6. Marfan's syndrome * s/p multiple reconstructive surgeries * due to have CT of the chest to follow up on aortic root dilatation tomorrow; not going to be done due to current illness. * to have CT after discharge and before leaving for home. * 7. Hypothyroidism: on synthroid 8. Hypertension: Atenolol on hold. DVT Prophylaxis: Lovenox Disposition: for likely Dc home with home healthcare tomorrow CODE STATUS: Full code Inpatient E&M: 12792 Subs Hosp L2
--- NOTE | 2020-04-26 14:37 | CASEMGMT ---
MARGO CRISTINA in to discuss discharge planning with mother. Mother Jacki states she wants patient to discharge home, Mother states she has another son and daughter that can assist with care at home. Mother would like [facility] at discharge and prefers [facility]. MARGO CRISTINA sent referral to [facility] and they are able to accept the patient.
--- NOTE | 2020-04-26 15:56 | NURSING ---
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
--- NOTE | 2020-04-26 16:04 | TELEMED_ITS ---
[facility] has confirmed receipt of a request for visit. This document confirms receipt of the order initiating the consult. To find the results of the consultation, please view the patient's reports for the scanned Telemed Consult.
--- NOTE | 2020-04-26 16:08 | PCM.PN.ID ---
Patient Problems: Active and Suspected Problems (Last Reviewed 04/24/20 @ 16:[address] Alexis Murray MD) Bacteremia (Acute) Septic shock (Acute) Subjective: Mental status improved per his mother, but not back to baseline. No fever. - Physical Exam Vitals/I&O's: Vital Signs Temp Pulse Resp BP Pulse Ox 97.8 F 80 16 96/61 98 04/26/20 15:12 04/26/20 15:12 04/26/20 15:12 04/26/20 15:12 04/26/20 15:12 Oxygen Flow Rate (L/min) 2 Oxygen Delivery Method Room Air Weight: 80.8 kg Body Mass Index (BMI) 26.6 Intake and Output for Last 24 Hours 04/24/20 04/25/20 04/26/20 23:59 23:59 23:59 Intake Total 3669.37 / 3669.37 2984.26 / 2984.26 1857.75 / 1857.75 Output Total 1100 / 1300 2860 / 2860 Balance 2569.37 / 2369.37 124.26 / 124.26 1857.75 / 1857.75 General: No apparent distress Lungs: Clear to auscultation, Normal air movement Cardiovascular: Regular rate, Regular Rhythm Abdomen: Soft, Non Tender, Non-Distended Skin: No rashes Microbiology Past 72 Hours 04/24/20 12:50 Blood Culture (Wb) - Left Hand Blood Culture - Preliminary No growth in 48 hours. 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 coli Laboratory Results 04/26/20 04:15: Vancomycin Trough 10.6 04/26/20 04:15: WBC 10.1, RBC 3.42 L, Hgb 10.9 L, Hct 32.1 L, MCV 93.9, MCH 31.9, MCHC 34.0, RDW Std Deviation 43.4, RDW Coeff of Bel 12.6, Plt Count 206, MPV 10.5, Immature Gran % (Auto) 0.300, Neut % (Auto) 69.9, Lymph % (Auto) 18.4 L, [place] % (Auto) 10.6 H, Eos % (Auto) 0.5, Baso % (Auto) 0.3, Absolute Neuts (auto) 7.1, Absolute Lymphs (auto) 1.86, Nucleated RBC % 0 04/26/20 04:15: Sodium 145, Potassium 3.5, Chloride 113 H, Carbon Dioxide 22.0, Anion Gap 10, BUN 6 L, Creatinine 0.52 L, Estim Creat Clear Calc 177.21, Est GFR (MDRD) Af Amer 225, Est GFR (MDRD) Non-Af 186, BUN/Creatinine Ratio 11.7, Glucose 87, Calcium 7.3 L Current Medications Acetaminophen (Tylenol) 650 mg RECTAL Q4H PRN PRN PRN Reason: Pain Score 1-10/Temp > 100.7 F Enoxaparin Sodium (Lovenox) 40 mg SC DAILY [facility] Last Admin: 04/26/20 10:33 Dose: 40 mg Documented by: Sodium Chloride () 1,000 mls @ 100 mls/hr IV .Q10H [facility] Last Infusion: 04/26/20 11:40 Dose: 100 mls/hr Documented by: Ceftriaxone Sodium 2 gm/ (Sodium Chloride) 50 mls @ 100 mls/hr IV Q12 [facility] Last Infusion: 04/26/20 12:23 Dose: Infused Documented by: Sodium Chloride () 250 mls @ 15 mls/hr IV .[id number] PRN PRN Reason: Saline Flush Last Infusion: 04/26/20 13:12 Dose: 0 mls/hr Documented by: Sodium Chloride () 250 mls @ 15 mls/hr IV .[id number] PRN PRN Reason: Additional IVPB Infusion Levetiracetam () 1,000 mg in 100 mls @ 400 mls/hr IV X1 ONE Stop: 04/26/20 16:20 Ondansetron HCl (Zofran) 4 mg IV Q8H PRN PRN PRN Reason: NAUSEA/VOMITING Phenobarbital (Phenobarbital) 65 mg IV DAILY [facility] Last Admin: 04/26/20 10:29 Dose: 65 mg Documented by: Sodium Chloride () 10 - 40 ml IV UD PRN PRN Reason: SALINE FLUSH Last Admin: 04/25/20 08:23 Dose: 20 ml Documented by: Medical Necessity - Tobacco Use Smoking Status: Never smoker Route of nutrition/ use of supplements: [] Nutritional Intake: [] IV Site: [] Cleaning Catheter: [] - Assessment/Plan Antibiotics: [] Assessment/Plan: [] Active and Suspected Problems (Last Reviewed 04/24/20 @ 16:[address] Alexis Murray MD) Septic shock (Acute) Due to GNR bacteremia, urinary source. Lactate 4.7, now normal. Fever to 103.3,now resolved. UA with 500 leuk est, (+) nitrite, mild pyuria. Ucx with ecoli. Cont ceftriaxone for now. Plan on d/c home on po amox 875mg bid for 7 more days. Will follow
[2020-04-26] MEDS: levETIRAcetam IV 1,000 MG/100 ML BAG 400 MG IV (16:47)
[2020-04-26] MEDS: clonazePAM 0.5 MG Tablet PO (21:23)
[2020-04-26] MEDS: Divalproex (ER) 500 MG Tablet 1500 MG PO (21:23)
[2020-04-26] MEDS: Atenolol 50 MG Tablet PO (21:23)
[2020-04-27] VITALS (9 sets, daily range): BP systolic 97–101; BP diastolic 60–62; PULSE 58–76; RESP 14–18; TEMP 36.3–36.7; O2SAT 93–97
[2020-04-27] MEDS: 0.9% Normal Saline 1,000 ML 100 ML IV (03:29)
[2020-04-27] MEDS: Levothyroxine 75 MCG Tablet PO (06:10)
[2020-04-27 07:02] LABS: Absolute Lymphocyte Count 2.29 X10^3/uL (0.83-4.51); Absolute Neutrophil Count 3.7 X10^3/uL (2.0-7.7); Basophil# 0.03 X10^3/uL; Basophil% 0.5 % (0-1); Eosinophil# 0.08 X10^3/uL; Eosinophils% 1.2 % (0-5); Hemoglobin 11.7 g/dL (13.0-16.5); Lymphocyte # 2.29 X10^3/ul (4.0); Lymphocyte % 34.4 % (19-41); Mean Corp Hgb Conc 33.4 g/dL (32-36); Mean Corpuscular Hgb 31.8 pg (27.0-32.0); Mean Corpuscular Volume 95.1 fL (80-94); Mean Platelet Vol. 10.4 fl (6.2-12.0); Monocyte# 0.52 X10^3/uL; Monocyte% 7.8 % (0-10); NRBC Flagged by Analyzer 0 % (0-5); Neutrophil # 3.69 X10^3/uL (2.7-7.7); Neutrophil % 55.5 % (47-70); Platelet Count 255 K/mm3 (150-450); RBC Distribution Width CV 12.6 % (11.6-14.6); RBC Distribution Width SD 44.1 fl (35.1-43.9); Red Blood Count 3.68 M/mm3 (4.6-6.2); White Blood Count 6.7 K/mm3 (4.4-11.0)
[2020-04-27 07:25] LABS: Anion Gap 4 (5-15); BUN 3 mg/dL (7-18); BUN/Creat Ratio 5.2 RATIO (10-20); Calcium,Total 7.5 mg/dL (8.5-10.1); Chloride 115 mmol/L (98-107); Creatinine, Serum 0.58 mg/dL (0.70-1.30); EST Glomerular Filtration Rate 162 mL/min (>60); Est Glom Filt Rate - Afr Amer 196 mL/min (>60); Estimated Creatinine Clearance 158.88 ml/min; Glucose 88 mg/dL (74-106); Potassium 3.2 mmol/L (3.5-5.1); Sodium Level 146 mmol/L (136-145)
[2020-04-27] MEDS: Enoxaparin 40 MG/0.4 ML Syringe SC (09:28)
[2020-04-27] MEDS: clonazePAM 0.5 MG Tablet PO (11:25)
[2020-04-27] MEDS: Phenobarbital 32.4 MG Tablet 64.8 MG PO (11:25)
[2020-04-27] MEDS: Potassium Chloride 10mEq/100mL 10 MEQ/100 ML IV.SOLN. 100 MEQ IV BOLUS ×4 (12:31→15:28)
--- NOTE | 2020-04-27 13:07 | DCINST_ITS ---
- Discharge Diagnoses Current Active Problems: Current Active and Chronic Problems (Last Reviewed 04/24/20 @ 16:[address] Alexis Murray MD) Bacteremia (Acute) Septic shock (Acute) Hypothyroidism (Chronic) You will use the following diet at home:: Cardiac Your food should be the consistency of: Regular Your liquids should be the consistency of: Regular/Thin Discharge Activity: Return to Normal Activity Weight Bearing Status: Weight bearing as tolerated Call your doctor if you observe: Fever of 101 or Higher, Shortness of breath, Dizziness, Fainting spells, Chest pain, Increased palpitations (irregular heartbeat), - - seizures Instructions: Sepsis, Understanding Sepsis, Understanding Urinary Tract Infections (UTIs) Allergies/Adverse Reactions: Allergies No Known Allergies Allergy (Verified 10/05/19 14:08) Medications to take at Discharge Atenolol 50 mg PO BID 01/15/18 clonazepam 0.5 mg tablet 0.5 mg PO BID 03/22/19 levothyroxine 75 mcg tablet 75 mcg PO DAILY 03/22/19 Divalproex Sodium [Divalproex Sodium ER] 1,500 mg PO QHS 04/24/20 Multivitamin with Minerals [Multiple Vitamin] 1 tab PO DAILY 04/24/20 Phenobarbital 64.8 mg PO DAILY 04/24/20 Amoxicillin/Potassium Clav [Amox-Clav 875-125 mg Tablet] 1 ea PO BID 7 Days #14 tab 04/27/20 Potassium Chloride [K-Dur] 20 meq PO DAILY #10 tab 04/27/20 The following prescriptions were given: Amoxicillin/Potassium Clav [Amox-Clav 875-125 mg Tablet] 1 ea PO BID 7 Days #14 tab Transmission Status: Pending to [facility] Potassium Chloride [K-Dur] 20 meq PO DAILY #10 tab Transmission Status: Pending to [facility] Primary Care Physician: Parvin Callahan MD [Primary Care Provider] - Please follow up with your Primary Care Physician in: 1 week Test Results: Test results from this visit will be discussed in further detail at your follow- up appointment, if applicable. Please Follow Up With: Albino Allen MD When: 2-3 weeks Proposed Discharge Date: 04/27/20
--- NOTE | 2020-04-27 13:10 | PCM.DC.SUM ---
Discharge Date and Diagnosis - Problem List Patient Problems: Active and Suspected Problems (Last Reviewed 04/24/20 @ 16:[address] Alexis Murray MD) Bacteremia (Acute) Septic shock (Acute) Date of Admission: 04/24/20 - Primary Discharge Diagnosis Acute Problems: Active Problems (Last Reviewed 04/24/20 @ 16:[address] Alexis Murray MD) Bacteremia (Acute) Septic shock (Acute) - Secondary Discharge Diagnosis Chronic Problems: Chronic Problems (Last Reviewed 04/24/20 @ 16:[address] Alexis Murray MD) Hypothyroidism (Chronic) Essential hypertension (Chronic) Dilatation of aortic root due to Marfan syndrome (Chronic) 4.9cm Marfan syndrome (Chronic) Seizure disorder (Chronic) Hospital Course and Treatment Summary of Care Provided: The patient is a 44 year old M [] Patient Problems: Active and Suspected Problems (Last Reviewed 04/24/20 @ 16:[address] Alexis Murray MD) Bacteremia (Acute) Septic shock (Acute) - Physical Exam Vitals/I&O's: Vital Signs Temp Pulse Resp BP Pulse Ox 98.1 F 69 14 97/60 96 04/27/20 09:21 04/27/20 09:21 04/27/20 09:21 04/27/20 09:21 04/27/20 09:21 Oxygen Flow Rate (L/min) 2 Oxygen Delivery Method Room Air Weight: 180 lb 5.41 oz Body Mass Index (BMI) 26.6 Intake and Output for Last 24 Hours 04/25/20 04/26/20 04/27/20 23:59 23:59 23:59 Intake Total 2984.26 / 2984.26 2854.41 / 3204.41 2570.01 / 2570.01 Output Total 2860 / 2860 Balance 124.26 / 124.26 2854.41 / 3204.41 2570.01 / 2570.01 Microbiology Past 72 Hours 04/24/20 12:55 Blood Culture (Wb) - Arm Right Blood Culture - Preliminary Escherichia coli 04/24/20 12:50 Blood Culture (Wb) - Left Hand Blood Culture - Preliminary No growth in 48 hours. 04/24/20 13:15 Urine Catheter - Cleaning Urine Culture - Final Presumptive E. coli Laboratory Results 04/27/20 06:46: WBC 6.7, RBC 3.68 L, Hgb 11.7 L, Hct 35.0 L, MCV 95.1 H, MCH 31.8, MCHC 33.4, RDW Std Deviation 44.1 H, RDW Coeff of Bel 12.6, Plt Count 255, MPV 10.4, Immature Gran % (Auto) 0.600, Neut % (Auto) 55.5, Lymph % (Auto) 34.4, [place] % (Auto) 7.8, Eos % (Auto) 1.2, Baso % (Auto) 0.5, Absolute Neuts (auto) 3.7, Absolute Lymphs (auto) 2.29, Nucleated RBC % 0 04/27/20 06:46: Sodium 146 H, Potassium 3.2 L, Chloride 115 H, Carbon Dioxide 27.0, Anion Gap 4 L, BUN 3 L, Creatinine 0.58 L, Estim Creat Clear Calc 158.88, Est GFR (MDRD) Af Amer 196, Est GFR (MDRD) Non-Af 162, BUN/Creatinine Ratio 5.2 L, Glucose 88, Calcium 7.5 L Current Medications Acetaminophen (Tylenol) 650 mg RECTAL Q4H PRN PRN PRN Reason: Pain Score 1-10/Temp > 100.7 F Atenolol (Tenormin (Beta Jacob)) 50 mg PO BID [facility] Last Admin: 04/26/20 21:23 Dose: 50 mg Documented by: Clonazepam (Klonopin) 0.5 mg PO BID [facility] Last Admin: 04/27/20 11:25 Dose: 0.5 mg Documented by: Divalproex Sodium (Depakote Er) 1,500 mg PO QHS [facility] Last Admin: 04/26/20 21:23 Dose: 1,500 mg Documented by: Enoxaparin Sodium (Lovenox) 40 mg SC DAILY [facility] Last Admin: 04/27/20 09:28 Dose: 40 mg Documented by: Ceftriaxone Sodium 2 gm/ (Sodium Chloride) 50 mls @ 100 mls/hr IV Q12 [facility] Last Infusion: 04/27/20 09:57 Dose: Infused Documented by: Sodium Chloride () 250 mls @ 15 mls/hr IV .[id number] PRN PRN Reason: Saline Flush Last Infusion: 04/26/20 13:12 Dose: 0 mls/hr Documented by: Sodium Chloride () 250 mls @ 15 mls/hr IV .[id number] PRN PRN Reason: Additional IVPB Infusion Potassium Chloride () 10 meq in 100 mls @ 100 mls/hr IV BOLUS Q1H [facility] Stop: 04/27/20 15:29 Last Admin: 04/27/20 12:31 Dose: 100 mls/hr Documented by: Levothyroxine Sodium (Synthroid) 75 mcg PO DAILY@0600 [facility] Last Admin: 04/27/20 06:10 Dose: 75 mcg Documented by: Multivitamins/Minerals (Multivitamin With Minerals (Bkc)) 1 tablet PO DAILY@0800 [facility] Last Admin: 04/27/20 11:34 Dose: Not Given Documented by: Ondansetron HCl (Zofran) 4 mg IV Q8H PRN PRN PRN Reason: NAUSEA/VOMITING Phenobarbital (Phenobarbital) 64.8 mg PO DAILY [facility] Last Admin: 04/27/20 11:25 Dose: 64.8 mg Documented by: Sodium Chloride () 10 - 40 ml IV UD PRN PRN Reason: SALINE FLUSH Last Admin: 04/25/20 08:23 Dose: 20 ml Documented by: Discharge Activity: Return to Normal Activity Weight Bearing Status: Weight bearing as tolerated Call your doctor if you observe: Fever of 101 or Higher, Shortness of breath, Dizziness, Fainting spells, Chest pain, Increased palpitations (irregular heartbeat), - - seizures Home Medications: Medications to take at Discharge Atenolol 50 mg PO BID 01/15/18 clonazepam 0.5 mg tablet 0.5 mg PO BID 03/22/19 levothyroxine 75 mcg tablet 75 mcg PO DAILY 03/22/19 Divalproex Sodium [Divalproex Sodium ER] 1,500 mg PO QHS 04/24/20 Multivitamin with Minerals [Multiple Vitamin] 1 tab PO DAILY 04/24/20 Phenobarbital 64.8 mg PO DAILY 04/24/20 Amoxicillin/Potassium Clav [Amox-Clav 875-125 mg Tablet] 1 ea PO BID 7 Days #14 tab 04/27/20 Potassium Chloride [K-Dur] 20 meq PO DAILY #10 tab 04/27/20 Following Prescriptions Were Given to Patient: Amoxicillin/Potassium Clav [Amox-Clav 875-125 mg Tablet] 1 ea PO BID 7 Days #14 tab Transmission Status: Pending to [facility] Potassium Chloride [K-Dur] 20 meq PO DAILY #10 tab Transmission Status: Pending to [facility] Primary Care Physician: Parvin Callahan MD [Primary Care Provider] - Please follow up with your Primary Care Physician in: 1 week Please Follow Up With: Albino Allen MD When: 2-3 weeks Patient Instructions: Understanding Urinary Tract Infections (UTIs), Sepsis, Understanding Sepsis Medical Necessity - Tobacco Use Smoking Status: Never smoker
--- NOTE | 2020-04-27 13:27 | DS.PCM_ITS ---
Discharge Date and Diagnosis Date of Admission: 04/24/20 Date of Discharge: 04/27/20 - Primary Discharge Diagnosis Acute Problems: Active Problems (Last Reviewed 04/24/20 @ 16:[address] Alexis Murray MD) Bacteremia (Acute) Septic shock (Acute) breakthrough seizures - Secondary Discharge Diagnosis Chronic Problems: Chronic Problems (Last Reviewed 04/24/20 @ 16:[address] Alexis Murray MD) Hypothyroidism (Chronic) Essential hypertension (Chronic) Dilatation of aortic root due to Marfan syndrome (Chronic) 4.9cm Marfan syndrome (Chronic) Seizure disorder (Chronic) Hospital Course and Treatment Imaging Results: Diagnostic Data Chest X-Ray 04/24/20 12:52 IMPRESSION: Normal x-ray examination of the chest. Electronically Signed: Pravin Elias, at 14:09 EDT , Service support , Brain CT 04/24/20 13:01 IMPRESSION: Normal unenhanced CT scan of the brain. Electronically Signed: Pravin Elias, at 14:08 EDT , Service support , Cervical Spine CT 04/24/20 13:01 IMPRESSION: Degenerative changes, as described above. Electronically Signed: Pravin Elias, at 14:08 EDT , Service support , neurology Operations: None Procedures: None Summary of Care Provided: The patient is a 44 year old M with an extensive past medical history as outlined was admitted through the ED on 04/24/2020 with a complaint of fever and altered mental status. Patient was very lethargic and sleepy at time of admission and could not provide any history. EMS reported that patient was covered in urine and there were bedbugs in his house. Patient's mother provided additional information to admitting hospitalist and stated he was fine until the morning of admission when he had a fever and was sleepy and lethargic. She also said he has been having a chronic mild cough but nothing unusual he had no abdominal pain, nausea vomiting or diarrhea. Patient had a history of seizure disorder and had been on divalproex and phenobarbital. On admission, he was febrile, tachycardic and tachypneic with blood pressure which was stable and labs showed creatinine of 1.38. Lactic acid was 4.7 and EKG showed sinus tachycardia. Chest x-ray showed no acute cardiopulmonary findings. Urinalysis showed cloudy urine which was positive for nitrites and leukocyte esterase and had 1+ bacteria. COVID-19 done was negative. Urine tox was positive for barbiturates and blood alcohol level was 3. CT scan of the brain showed no acute intracranial pathology and CT of the cervical spine showed no acute fractures or dislocation. He was admitted and managed for septic shock due to acute cystitis, WANDER and acute metabolic encephalopathy due to septic shock. He was started on IV vancomycin as well as Rocephin and acyclovir due to concerns about possible meningitis because of his acute metabolic encephalopathy. Critical care was consulted and ID was also consulted. ID reviewed patient and did not think he had meningitis so acyclovir was discontinued. Patient subsequently became arousable and white cell count trended down. He was therefore transferred to the regular nursing floor. Blood culture E. coli in 1 out of 2 samples and urine also cultured E. coli. WANDER resolved with IV fluids. Of note, patient had a breakthrough seizure as his Depakote and clonazepam had been held. Neurology was consulted and recommended that patient's medication be resumed. Patient's phenobarb and Depakote as well as clonazepam were therefore resumed. Patient remained stable and he was evaluated by physical therapy. His mother requested that patient go home with home health care as he had other siblings who could help with his care. Patient remained stable and was discharged home on 04/27/2020 with a prescription prescription for p.o. amoxicillin clavulanic acid 875 125 mg twice daily for 7 more days. He is to follow-up with his primary care doctor, ID and neurologist in 1 to 2 weeks. Patient seen and examined prior to discharge. He was alert and oriented but nonverbal. Unable to do review of systems. Vitals reviewed. Home medication reviewed and reconciled. O/E: Vital Signs Temp Pulse Resp BP Pulse Ox 97.4 F L 71 18 98/62 97 04/27/20 16:25 04/27/20 16:25 04/27/20 16:25 04/27/20 16:25 04/27/20 16:25 [] General: alert, oriented, noncommunicative HEENT: Atraumatic, PERRLA, EOMI, Normocephalic Oral: Dry Mucosa Neck: Supple, No JVD, Negative Carotid Bruits Lungs: Clear to auscultation, Normal air movement Cardiovascular: Regular rate, Regular Rhythm, Normal S1, Normal S2, No murmurs Abdomen: Bowel Sounds Present, Soft, Non Tender, Non-Distended, No Hepato-splenomegaly Extremities: No clubbing, No cyanosis, No edema, Capillary Refill Less than 3 Seconds Skin: No rashes, No breakdown Musculoskeletal: No Tenderness to Palpation of Joints or Extremities Lymphatic: No Cervical, Supraclavicular, or Inguinal Adenopathy Neurological: Cranial nerves II-XII grossly intact, Neuro grossly intact, Motor Exam 5/5 strength throughout Psych/Mental Status: - - alert, flat affect Plan is for DC home with home health care today. - Physical Exam Vitals/I&O's: Vital Signs Temp Pulse Resp BP Pulse Ox 98.1 F 69 14 97/60 96 04/27/20 09:21 04/27/20 09:21 04/27/20 09:21 04/27/20 09:21 04/27/20 09:21 Oxygen Flow Rate (L/min) 2 Oxygen Delivery Method Room Air Weight: 180 lb 5.41 oz Body Mass Index (BMI) 26.6 Intake and Output for Last 24 Hours 04/25/20 04/26/20 04/27/20 23:59 23:59 23:59 Intake Total 2984.26 / 2984.26 2854.41 / 3204.41 2655.01 / 2655.01 Output Total 2860 / 2860 Balance 124.26 / 124.26 2854.41 / 3204.41 2655.01 / 2655.01 Microbiology Past 72 Hours 04/24/20 12:55 Blood Culture (Wb) - Arm Right Blood Culture - Preliminary Escherichia coli 04/24/20 12:50 Blood Culture (Wb) - Left Hand Blood Culture - Preliminary No growth in 48 hours. 04/24/20 13:15 Urine Catheter - Cleaning Urine Culture - Final Presumptive E. coli Laboratory Results 04/27/20 06:46: WBC 6.7, RBC 3.68 L, Hgb 11.7 L, Hct 35.0 L, MCV 95.1 H, MCH 31.8, MCHC 33.4, RDW Std Deviation 44.1 H, RDW Coeff of Bel 12.6, Plt Count 255, MPV 10.4, Immature Gran % (Auto) 0.600, Neut % (Auto) 55.5, Lymph % (Auto) 34.4, [place] % (Auto) 7.8, Eos % (Auto) 1.2, Baso % (Auto) 0.5, Absolute Neuts (auto) 3.7, Absolute Lymphs (auto) 2.29, Nucleated RBC % 0 04/27/20 06:46: Sodium 146 H, Potassium 3.2 L, Chloride 115 H, Carbon Dioxide 27.0, Anion Gap 4 L, BUN 3 L, Creatinine 0.58 L, Estim Creat Clear Calc 158.88, Est GFR (MDRD) Af Amer 196, Est GFR (MDRD) Non-Af 162, BUN/Creatinine Ratio 5.2 L, Glucose 88, Calcium 7.5 L Current Medications Acetaminophen (Tylenol) 650 mg RECTAL Q4H PRN PRN PRN Reason: Pain Score 1-10/Temp > 100.7 F Atenolol (Tenormin (Beta Jaocb)) 50 mg PO BID [facility] Last Admin: 04/27/20 13:20 Dose: Not Given Documented by: Clonazepam (Klonopin) 0.5 mg PO BID [facility] Last Admin: 04/27/20 11:25 Dose: 0.5 mg Documented by: Divalproex Sodium (Depakote Er) 1,500 mg PO QHS [facility] Last Admin: 04/26/20 21:23 Dose: 1,500 mg Documented by: Enoxaparin Sodium (Lovenox) 40 mg SC DAILY [facility] Last Admin: 04/27/20 09:28 Dose: 40 mg Documented by: Ceftriaxone Sodium 2 gm/ (Sodium Chloride) 50 mls @ 100 mls/hr IV Q12 [facility] Last Infusion: 04/27/20 09:57 Dose: Infused Documented by: Sodium Chloride () 250 mls @ 15 mls/hr IV .[id number] PRN PRN Reason: Saline Flush Last Infusion: 04/26/20 13:12 Dose: 0 mls/hr Documented by: Sodium Chloride () 250 mls @ 15 mls/hr IV .[id number] PRN PRN Reason: Additional IVPB Infusion Potassium Chloride () 10 meq in 100 mls @ 100 mls/hr IV BOLUS Q1H [facility] Stop: 04/27/20 15:29 Last Admin: 04/27/20 13:22 Dose: 100 mls/hr Documented by: Levothyroxine Sodium (Synthroid) 75 mcg PO DAILY@0600 [facility] Last Admin: 04/27/20 06:10 Dose: 75 mcg Documented by: Multivitamins/Minerals (Multivitamin With Minerals (Bkc)) 1 tablet PO DAILY@0800 [facility] Last Admin: 04/27/20 11:34 Dose: Not Given Documented by: Ondansetron HCl (Zofran) 4 mg IV Q8H PRN PRN PRN Reason: NAUSEA/VOMITING Phenobarbital (Phenobarbital) 64.8 mg PO DAILY [facility] Last Admin: 04/27/20 11:25 Dose: 64.8 mg Documented by: Sodium Chloride () 10 - 40 ml IV UD PRN PRN Reason: SALINE FLUSH Last Admin: 04/25/20 08:23 Dose: 20 ml Documented by: Discharge Diet: Low fat/ Low Cholesterol Discharge Activity: Return to Normal Activity Weight Bearing Status: Weight bearing as tolerated Call your doctor if you observe: Fever of 101 or Higher, Shortness of breath, Dizziness, Fainting spells, Chest pain, Increased palpitations (irregular heartbeat), - - seizures Home Medications: Medications to take at Discharge Atenolol 50 mg PO BID 01/15/18 clonazepam 0.5 mg tablet 0.5 mg PO BID 03/22/19 levothyroxine 75 mcg tablet 75 mcg PO DAILY 03/22/19 Divalproex Sodium [Divalproex Sodium ER] 1,500 mg PO QHS 04/24/20 Multivitamin with Minerals [Multiple Vitamin] 1 tab PO DAILY 04/24/20 Phenobarbital 64.8 mg PO DAILY 04/24/20 Amoxicillin/Potassium Clav [Amox-Clav 875-125 mg Tablet] 1 ea PO BID 7 Days #14 tab 04/27/20 Potassium Chloride [K-Dur] 20 meq PO DAILY #10 tab 04/27/20 Following Prescriptions Were Given to Patient: Amoxicillin/Potassium Clav [Amox-Clav 875-125 mg Tablet] 1 ea PO BID 7 Days #14 tab Transmission Status: Received by [facility] Potassium Chloride [K-Dur] 20 meq PO DAILY #10 tab Transmission Status: Received by [facility] Primary Care Physician: Parvin Callahan MD [Primary Care Provider] - Please follow up with your Primary Care Physician in: 1 week Please Follow Up With: Albino Allen MD When: 2-3 weeks Patient Instructions: Understanding Urinary Tract Infections (UTIs), Sepsis, Understanding Sepsis Disposition: Home with Home Health Minutes spent on discharge:: 45 Patient Condition:: Stable Medical Necessity - Tobacco Use Smoking Status: Never smoker Meaningful Use Info Meaningful Use Diagnoses (Choose all that apply): None applicable Inpatient E&M: [id number] [facility]
--- NOTE | 2020-04-27 13:30 | NURSING ---
Asked PT/OT to see patient d/t concerns with transferring. They stated they would see patient. 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 Mother was in the room during all of the pt/ot evaluation and she states that she has help at home and does not want the patient to go to a snf or ecf. she wants to take the patient home. Dr. Reardon updated of same.
== END 2020-04-27 17:10 | disposition home health service (06) | DRG 871 ==
LOC: ED 13:40 → ICU 16:38 → MS3 04-25 12:01
PROVIDERS: Admitting Provider Hospitalist; Emergency Provider Student in an Organized Health Care Education/Training Program; PCP Internal Medicine; Visit Provider Student in an Organized Health Care Education/Training Program
DX: A41.51 Sepsis due to Escherichia coli [E. coli] (principal); R65.21 Severe sepsis with septic shock; G93.41 Metabolic encephalopathy; N30.00 Acute cystitis without hematuria; Q87.410 Marfan syndrome with aortic dilation; N17.9 Acute kidney failure, unspecified; G40.909 Epilepsy, unspecified, not intractable, without status epilepticus; E03.9 Hypothyroidism, unspecified; I10 Essential (primary) hypertension; Z79.899 Other long term (current) drug therapy
CPT/HCPCS: 36415; 70450; 71045; 72125; 80048; 80053; 80164; 80202; 80307; 80320; 81001; 83605; 84443; 84484; 85025; 85610; 85730; 87040; 87077; 87086; 87088; 87186; 87635; 92507; 92526; 93005; 94799; 97162; 97166; 97530; 99285; J7030; J7040; J7050; A4216; G0480; J0696; U0003

== ENCOUNTER → 2020-06-03 14:19 | Outpatient (CLI) | payer MEDICARE, MEDICAID, SELFPAY ==
[2019-10-05 13:25] VITALS: BMI 25.9
[2020-04-24 12:37] VITALS: BMI 26.6
--- NOTE | 2020-06-03 14:20 | ECHOCS_ITS ---
Reason For Study: MVP, Aortic Root Dilatation Procedure This was a 2D Doppler, Color Flow transthoracic echocardiogram. Technically difficult study, Echo done with patient in his wheelchair.Contrast Injection performed. The study was technically difficult. Contrast injection was performed. Exam performed in department. Left Ventricle Normal LV size. Left ventricular systolic function is normal. The estimated ejection fraction is 55 %. Transmitral doppler flow suggestive of impaired relaxation of left ventricle. No regional wall motion abnormalities noted. Right Ventricle Normal RV size. Normal systolic function. Atria Normal left atrium. Normal right atrium. No doppler evidence for ASD. Mitral Valve There is no mitral annular calcification. Mild diffuse mitral valve thickening. Mild mitral valve prolapse. Trivial mitral valve insufficiency. Tricuspid Valve Normal tricuspid valve. Trivial tricuspid valve insufficiency. Unable to estimate RV systolic pressure/pulmonary artery pressure due to technically difficult study. Aortic Valve Trisinus/trileaflet aortic valve. Normal aortic valve. Trivial aortic valve insufficiency. Pulmonic Valve The pulmonic valve is not well visualized. Trivial pulmonic valve insufficiency. Great Vessels Moderately dilated aortic root. Pericardium/Pleural No pericardial effusion. Medication 20 gauge I.V. with prn adaptor inserted into right arm. Diluted definity 3ml given slow IV push to enhance endocardial definition. MMode/2D Measurements & Calculations LVIDd: 4.3 cm IVSd: 1.0 cm Ao root diam: 4.6 cm LVIDs: 2.7 cm LVPWd: 1.0 cm LA dimension: 2.7 cm FS: 36.1 % LAV(MOD-sp4): 17.6 ml LA A4 area: 10.0 cm2 Time Measurements MV dec time: 0.32 sec Doppler Measurements & Calculations MV E max kev: 44.2 cm/sec Lat Peak E' Kev: 6.0 cm/sec Med Peak E' Kev: 4.3 cm/sec MV A max kev: 75.5 cm/sec E/E' lat: 7.4 E/E' med: 10.2 MV E/A: 0.58 MV V2 max: 77.0 cm/sec MV P1/2t max kev: 69.9 cm/sec Ao V2 max: 81.9 cm/sec MV max P.4 mmHg MV P1/2t: 98.5 msec Ao max P.7 mmHg MV V2 mean: 45.1 cm/sec MV dec slope: 207.7 cm/sec2 MV mean P.92 mmHg MV V2 VTI: 24.7 cm MVA(P1/2t): 2.2 cm2 LV V1 max: 52.5 cm/sec PA V2 max: 71.3 cm/sec LV V1 max P.1 mmHg Interpretation Summary The study was technically difficult. Contrast injection was performed. Left ventricular systolic function is normal. The estimated ejection fraction is 55 %. Mild diffuse mitral valve thickening. Mild mitral valve prolapse. Trivial mitral valve insufficiency. Trivial tricuspid valve insufficiency. Trivial aortic valve insufficiency. Trivial pulmonic valve insufficiency. Moderately dilated aortic root. (approximately 4.6 cm) Unable to estimate RV systolic pressure/pulmonary artery pressure due to technically difficult study. Transmitral doppler flow suggestive of impaired relaxation of left ventricle Ordering Physician: Cathleen Vaughn Referring Physician: Parvin Callahan Performed By: Tigre Andrade RCS
--- NOTE | 2020-06-03 15:20 | CT_ITS ---
STUDY: CT CHEST WITH CONTRAST REASON FOR EXAM: Male, 44 years old. AAA. HX OF MARFANS RADIATION DOSAGE (If Supplied By Facility): CTDIvol = ( 17.02 ) mGy, DLP = ( 425.69 ) mGycm TECHNIQUE: Transaxial imaging was performed following intravenous administration of IV 100mL Isovue-370. Multiplanar coronal and sagittal images were reformatted. Individualized dose optimization techniques were used for this CT. COMPARISON: Comparison is made with prior examination dated 03/30/2019 and 03/24/2012. FINDINGS: Minimal increased markings at the lung bases suggest some mild basilar atelectasis. There is no demonstrated pleural abnormality. Normal heart and pericardium. Once again, there is aneurysmal dilatation of the aortic root measuring 5 cm in transverse dimension. This is unchanged. No evidence of aortic dissection. The aortic arch and descending aorta are not dilated. Normal mediastinum. Normal hilar regions. Normal enhanced pulmonary arteries. Normal osseous structures. There is no demonstrated abnormality of the visualized upper abdomen. CT/Chest WITH Contrast IMPRESSION: Stable examination demonstrating aneurysmal dilatation of the aortic root. Normal caliber of the descending aorta and aortic arch. Electronically Signed: Pravin Elias, at 8:52 EDT , Service support ,
== END ==
PROVIDERS: PCP Internal Medicine; Referring Provider Physician Assistant Medical; Visit Provider Physician Assistant Medical
DX: Q87.410 Marfan syndrome with aortic dilation (principal)
CPT/HCPCS: 71260; 93306; Q9957; A4216; C8929

== ENCOUNTER → 2021-02-17 14:35 | Outpatient (CLI) | payer MEDICARE, SELFPAY ==
[2020-10-17 14:21] VITALS: BMI 22.4
[2021-02-17 15:21] LABS: Absolute Lymphocyte Count 2.79 X10^3/uL (0.83-4.51); Absolute Neutrophil Count 2.7 X10^3/uL (2.0-7.7); Basophil# 0.03 X10^3/uL; Basophil% 0.5 % (0-1); Eosinophil# 0.07 X10^3/uL; Eosinophils% 1.1 % (0-5); Hematocrit 40.3 % (40-54); Hemoglobin 13.5 g/dL (13.0-16.5); Lymphocyte # 2.79 X10^3/ul (0.83-4.51); Lymphocyte % 43.8 % (19-41); Mean Corp Hgb Conc 33.5 g/dL (32-36); Mean Corpuscular Hgb 31.3 pg (27.0-32.0); Mean Corpuscular Volume 93.3 fL (80-94); Mean Platelet Vol. 10.6 fl (6.2-12.0); Monocyte# 0.73 X10^3/uL; Monocyte% 11.5 % (0-10); NRBC Flagged by Analyzer 0 % (0-5); Neutrophil # 2.73 X10^3/uL (2.7-7.7); Neutrophil % 42.8 % (47-70); Platelet Count 212 K/mm3 (150-450); RBC Distribution Width CV 12.5 % (11.6-14.6); RBC Distribution Width SD 42.8 fl (35.1-43.9); Red Blood Count 4.32 M/mm3 (4.6-6.2); White Blood Count 6.4 K/mm3 (4.4-11.0)
[2021-02-17 16:06] LABS: AST(SGOT) 10 U/L (15-37); Alanine Aminotransfer ALT/SGPT 13 U/L (16-61); Albumin, Serum 3.3 g/dL (3.2-5.0); Alkaline Phosphatase 68 U/L (45-117); Bilirubin, Direct < 0.05 mg/dL (0.00-0.30); Globulin 4.2 g/dL (2.2-4.2); Protein, Total 7.5 g/dL (6.4-8.2)
[2021-02-17 16:15] LABS: Valproic Acid (Depakene) Level 63 ug/mL (50-100)
== END ==
PROVIDERS: PCP Internal Medicine; Visit Provider Psychiatry & Neurology Neurology
DX: G40.909 Epilepsy, unspecified, not intractable, without status epilepticus (principal)
CPT/HCPCS: 36415; 80076; 80164; 80184; 85025

== ENCOUNTER → 2022-02-16 | Outpatient (CLI) | payer MEDICARE, SELFPAY ==
[2022-02-16 16:27] LABS: Absolute Lymphocyte Count 2.85 X10^3/uL (0.83-4.51); Absolute Neutrophil Count 3.5 X10^3/uL (2.0-7.7); Basophil# 0.04 X10^3/uL; Basophil% 0.5 % (0-1); Eosinophil# 0.07 X10^3/uL; Eosinophils% 0.9 % (0-5); Hematocrit 41.5 % (40-54); Hemoglobin 14.3 g/dL (13.0-16.5); Lymphocyte # 2.85 X10^3/ul (0.83-4.51); Lymphocyte % 38.2 % (19-41); Mean Corp Hgb Conc 34.5 g/dL (32-36); Mean Corpuscular Hgb 32.2 pg (27.0-32.0); Mean Corpuscular Volume 93.5 fL (80-94); Mean Platelet Vol. 10.6 fl (6.2-12.0); Monocyte# 0.97 X10^3/uL; NRBC Flagged by Analyzer 0 % (0-5); Platelet Count 232 K/mm3 (150-450); RBC Distribution Width CV 12.4 % (11.6-14.6); RBC Distribution Width SD 43.1 fl (35.1-43.9); Red Blood Count 4.44 M/mm3 (4.6-6.2); White Blood Count 7.5 K/mm3 (4.4-11.0)
[2022-02-16 17:00] LABS: ALB/GLOB Ratio 0.8 RATIO (0.9-2.4); AST(SGOT) 13 U/L (15-37); Alanine Aminotransfer ALT/SGPT 16 U/L (16-61); Albumin, Serum 3.3 g/dL (3.2-5.0); Alkaline Phosphatase 62 U/L (45-117); Anion Gap 7 (5-15); BUN 8 mg/dL (7-18); BUN/Creat Ratio 9.7 RATIO (10-20); Calcium,Total 8.6 mg/dL (8.5-10.1); Chloride 107 mmol/L (98-107); Creatinine, Serum 0.83 mg/dL (0.70-1.30); EST Glomerular Filtration Rate 107 mL/min (>60); Est Glom Filt Rate - Afr Amer 129 mL/min (>60); Globulin 4.3 g/dL (2.2-4.2); Glucose 88 mg/dL (74-106); Potassium 4.4 mmol/L (3.5-5.1); Protein, Total 7.6 g/dL (6.4-8.2); Sodium Level 137 mmol/L (136-145)
== END | disposition home or self-care (01) ==
LOC: LAB 15:36
PROVIDERS: PCP Internal Medicine; Referring Provider Physician Assistant; Visit Provider Physician Assistant
DX: G40.909 Epilepsy, unspecified, not intractable, without status epilepticus (principal)
CPT/HCPCS: 36415; 80053; 85025

== ENCOUNTER → 2022-02-24 | Outpatient (CLI) | payer MEDICARE, SELFPAY ==
--- NOTE | 2022-02-24 13:41 | ECHOD_ITS ---
Reason For Study: MARFANS SYNDROME, DILATED AO ROOT Procedure This was a 2D Doppler, Color Flow transthoracic echocardiogram. The study was technically difficult. Exam performed in department. Left Ventricle Normal LV size. Left ventricular systolic function is normal. The estimated ejection fraction is 65 %. Transmitral doppler flow suggestive of impaired relaxation of left ventricle. No regional wall motion abnormalities noted. Right Ventricle Normal RV size. Normal systolic function. Atria Normal left atrium. Normal right atrium. No doppler evidence for ASD. Mitral Valve There is no mitral annular calcification. Moderate diffuse mitral valve thickening. Mild mitral valve prolapse. Mild (1+) mitral valve insufficiency. Tricuspid Valve Normal tricuspid valve. Trivial tricuspid valve insufficiency. Right ventricular systolic pressure estimated to be 19 mmHg. Aortic Valve Trisinus/trileaflet aortic valve. Normal aortic valve. Trivial aortic valve insufficiency. Pulmonic Valve The pulmonic valve is not well visualized. Mild (1+) pulmonic valve insufficiency. Great Vessels Dilatation at the level of the aortic valve sinuses (4.6 cm). Moderately dilated aortic root. The ascending aorta is mildly dilated. Pericardium/Pleural No pericardial effusion. MMode/2D Measurements & Calculations LVIDd: 4.0 cm IVSd: 0.88 cm Ao root diam: 4.7 cm LVIDs: 2.6 cm LVPWd: 0.91 cm RVDd: 3.6 cm FS: 34.6 % LAV(MOD-bp): 41.6 ml LVAd ap4: 33.7 cm2 SV(MOD-sp4): 70.8 ml LAV(MOD-bp) Indexed: 19.6 ml/m2 LVLd ap4: 8.2 cm LAV(MOD-sp2): 36.9 ml EDV(MOD-sp4): 113.6 ml LAV(MOD-sp4): 40.8 ml EDV(sp4-el): 117.8 ml LVAs ap4: 19.0 cm2 LVLs ap4: 7.4 cm ESV(MOD-sp4): 42.8 ml ESV(sp4-el): 41.2 ml EF(MOD-sp4): 62.3 % EF(sp4-el): 65.0 % SV(sp4-el): 76.6 ml LA A4 area: 16.6 cm2 LA dimension(2D): 3.1 cm RA A4 area: 14.6 cm2 Time Measurements MV dec time: 0.35 sec Doppler Measurements & Calculations MV E max kev: 54.3 cm/sec Lat Peak E' Kev: 8.9 cm/sec Med Peak E' Kev: 5.1 cm/sec MV A max kev: 86.8 cm/sec E/E' lat: 6.1 E/E' med: 10.6 MV E/A: 0.63 Ao V2 max: 113.4 cm/sec LV V1 max: 104.2 cm/sec PA V2 max: 89.6 cm/sec Ao max P.1 mmHg LV V1 max P.3 mmHg PI end-d kev: 85.0 cm/sec TR max kev: 202.6 cm/sec TR max P.4 mmHg PI dec slope: 139.1 cm/sec2 ECHO/Echo Complete Interpretation Summary The study was technically difficult. Left ventricular systolic function is normal. The estimated ejection fraction is 65 %. Moderate diffuse mitral valve thickening. Mild mitral valve prolapse. Mild (1+) mitral valve insufficiency. Trivial tricuspid valve insufficiency. Trivial aortic valve insufficiency. Mild (1+) pulmonic valve insufficiency. Dilatation at the level of the aortic valve sinuses (4.6 cm) Moderately dilated aortic root. (4.7 cm) The ascending aorta is mildly dilated. (4.2 cm) Right ventricular systolic pressure estimated to be 19 mmHg. Transmitral doppler flow suggestive of impaired relaxation of left ventricle Ordering Physician: Mk Rivera/Phoenix Pierre Referring Physician: SARANYA CASPER Performed By: Corrine Orozco RDCS
== END | disposition home or self-care (01) ==
LOC: CVS 13:40
PROVIDERS: PCP Internal Medicine; Referring Provider Nurse Practitioner Family; Visit Provider Nurse Practitioner Family
DX: Q87.410 Marfan syndrome with aortic dilation (principal)
CPT/HCPCS: 93306

== ENCOUNTER → 2022-04-21 | Outpatient (CLI) | payer MEDICARE, MEDICAID, SELFPAY ==
[2022-04-21 14:13] LABS: Absolute Neutrophil Count 4.4 X10^3/uL (2.0-7.7); Basophil# 0.05 X10^3/uL; Basophil% 0.5 % (0-1); Eosinophil# 0.09 X10^3/uL; Eosinophils% 0.9 % (0-5); Hemoglobin 14.3 g/dL (13.0-16.5); Lymphocyte % 38.6 % (19-41); Mean Platelet Vol. 10.6 fl (6.2-12.0); Monocyte# 1.29 X10^3/uL; Monocyte% 13.5 % (0-10); NRBC Flagged by Analyzer 0 % (0-5); Neutrophil # 4.41 X10^3/uL (2.7-7.7); Neutrophil % 46.1 % (47-70); Platelet Count 197 K/mm3 (150-450); RBC Distribution Width CV 12.7 % (11.6-14.6); RBC Distribution Width SD 43.4 fl (35.1-43.9); Red Blood Count 4.47 M/mm3 (4.6-6.2); White Blood Count 9.6 K/mm3 (4.4-11.0)
[2022-04-21 14:51] LABS: ALB/GLOB Ratio 0.8 RATIO (0.9-2.4); AST(SGOT) 12 U/L (15-37); Alanine Aminotransfer ALT/SGPT 13 U/L (16-61); Albumin, Serum 3.4 g/dL (3.2-5.0); Alkaline Phosphatase 63 U/L (45-117); Anion Gap 6 (5-15); BUN 20 mg/dL (7-18); BUN/Creat Ratio 19.6 RATIO (10-20); Calcium,Total 8.4 mg/dL (8.5-10.1); Chloride 109 mmol/L (98-107); Creatinine, Serum 1.02 mg/dL (0.70-1.30); EST Glomerular Filtration Rate 84 mL/min (>60); Est Glom Filt Rate - Afr Amer 101 mL/min (>60); Globulin 4.4 g/dL (2.2-4.2); Glucose 113 mg/dL (74-106); Potassium 4.1 mmol/L (3.5-5.1); Protein, Total 7.8 g/dL (6.4-8.2); Sodium Level 139 mmol/L (136-145)
[2022-04-21 14:53] LABS: Valproic Acid (Depakene) Level 77 ug/mL (50-100)
== END | disposition home or self-care (01) ==
LOC: LAB 13:35
PROVIDERS: PCP Internal Medicine; Referring Provider Physician Assistant; Visit Provider Physician Assistant
DX: G40.909 Epilepsy, unspecified, not intractable, without status epilepticus (principal)
CPT/HCPCS: 36415; 80053; 80164; 80184; 85025

== ENCOUNTER 2022-12-31 16:13 | Inpatient (IN) | payer MEDICARE, MEDICAID, SELFPAY ==
[2022-12-31 16:14] VITALS: BP 111/74; PULSE 74; RESP 18; TEMP 36.8; O2SAT 95; BMI 20.7
--- NOTE | 2022-12-31 16:26 | EKG12_ITS ---
Test Reason : GENERAL Blood Pressure : / mmHG Vent. Rate : 106 BPM Atrial Rate : 106 BPM P-R Int : 124 ms QRS Dur : 080 ms QT Int : 338 ms P-R-T Axes : 051 055 018 degrees QTc Int : 448 ms Sinus tachycardia with occasional Premature ventricular complexes Otherwise normal ECG Confirmed by HILLARY JEFFERSON, RODERICK ([id number]), web editor LAXMI ADAME ([id number]) on 01/04/2023 11:45:29 AM Referred By: Jorge L Ahmadi Confirmed By:RODERICK THORNTON MD
[2022-12-31] MEDS: 0.9% Normal Saline 1,000 ML 999 ML IV ×2 (16:28→17:02)
--- NOTE | 2022-12-31 16:28 | EX.ED.DYSGE1 ---
HPI History of Present Illness Chief Complaint: General Illness Narrative Narrative: 47-year-old male presenting with his family out of concern for not eating and drinking well. Patient reportedly has had fevers at home although the family cannot tell me what his temperature was. They state that it is off-and-on. Patient refusing to eat food for about 4 days. He is not vomiting. He is not complaining of any pain. Patient's family notes a strong smell of urine. Patient is a poor informant and unable to give any information. [facility] Medical History Anxiety Dilatation of aortic root due to Marfan syndrome Essential hypertension Hypothyroidism Marfan syndrome Seizure disorder Home Medications atenolol 50 mg tablet 50 mg PO BID BP 01/15/18 [History Last Taken Unknown] clonazepam 0.5 mg tablet 0.5 mg PO BID ANXIETY 03/22/19 [History Last Taken Unknown] levothyroxine 75 mcg tablet 75 mcg PO DAILY THYROID 03/22/19 [History Last Taken Unknown] Divalproex Sodium [Divalproex Sodium Er] 1,500 mg PO QHS SEIZURES 04/24/20 [History Last Taken Unknown] multivitamin with minerals 1 tab PO DAILY SUPPLEMENT 04/24/20 [History Last Taken Unknown] phenobarbital 64.8 mg tablet 64.8 mg PO DAILY SEIZURES 04/24/20 [History Last Taken Unknown] potassium chloride 20 mEq tablet,extended release(part/cryst) 20 meq PO DAILY #10 tabs 04/27/20 [Rx Last Taken Unknown] Allergy/AdvReac Type Severity Reaction Status Date / Time No Known Allergies Allergy Verified 12/31/22 16:13 Family History Mother Hypertension Marfans syndrome Uncle Marfans syndrome Ruptured, aorta Uncle Marfans syndrome Ruptured, aorta Surgical History dislocated lenses, removed hamstring lengthening bilateral Social History household members: family Smoking Status: Never smoker alcohol intake: never substance use type: does not use caffeine: Yes Type: carbonated beverages Number of servings: 1 and coffee Number of servings: 2 ROS ROS ED Review of Systems ROS Unobtainable: due to mental condition and due to mental status EXAM Physical Exam Const Vital Signs: 12/31/22 16:14 12/31/22 16:17 12/31/22 16:29 Temperature 98.2 F 102.9 F H Temperature Source Temporal Axillary Pulse Rate 74 108 H Respiratory Rate 18 24 H Respiratory Effort Normal Non-Labored Respiratory Pattern Normal Blood Pressure 111/74 95/61 Blood Pressure Mean 86 72 Pulse Ox 95 93 Oxygen Delivery Method Room Air Room Air 12/31/22 17:30 Temperature 97.8 F Temperature Source Oral Pulse Rate 94 Respiratory Rate 18 Respiratory Effort Respiratory Pattern Blood Pressure 94/51 L Blood Pressure Mean 65 Pulse Ox 95 Oxygen Delivery Method Room Air Positive well nourished General Appearance ED: NAD; Negative for pallor HEENT Reports dry mucous membranes Mouth ED: Yes dry mucous membranes Mouth: dry mucous membranes Eyes PERRL and EOMs intact bilaterally Chest Wall inspection of chest normal and palpation of chest normal Resp normal respiratory effort and clear to auscultation bilaterally Cardio regular rhythm Rate: tachycardic GI normal to inspection, nondistended, normoactive bowel sounds Extremity normal to inspection Neuro CN's II-XII intact bilaterally Sensorium / Orientation: alert Skin no rashes or lesions noted and no wounds General Skin Exam: Negative for jaundice or pallor MDM MDM MDM Narrative Medical decision making narrative: Patient presenting with generalized malaise, decreased p.o. intake, noted to have a fever of 102.9 on arrival. Slightly tachycardic and tachypneic. Patient does not have any cough or shortness of breath per his family. They do note strong smell of urine. Patient is history of UTI and sepsis. Sepsis work-up was pursued. Patient was initially given 2 L of normal saline and a gram of Tylenol. Differential includes pneumonia, COVID, influenza, UTI. CBC shows a mild leukocytosis 11.4. Hemoglobin stable at 12.5. Platelets normal 325. PT and INR normal. PTT slightly prolonged at 39.2. Creatinine 0.82 with a normal BUN of 14. Electrolytes within normal limits. Glucose 103. LFTs within normal limits. Lactic acid 1.2. Valproic acid level therapeutic. Urinalysis consistent with UTI. Patient was given a gram of Rocephin. Patient is already been pancultured. Reevaluation at 7 PM patient is doing well. Discussed findings with the patient and his family. Recommended admission for IV antibiotics and IV fluids. Impression: 1. UTI 2. Encephalopathy Lab Data Labs: Laboratory Results - last 24 hr 12/31/22 12/31/22 12/31/22 16:25 16:25 16:25 WBC 11.4 H RBC 4.04 L Hgb 12.5 L Hct 37.6 L MCV 93.1 MCH 30.9 MCHC 33.2 RDW Std Deviation 41.3 RDW Coeff of Bel 11.9 Plt Count 325 MPV 9.8 Immature Gran % (Auto) 0.400 Neut % (Auto) 54.0 Lymph % (Auto) 29.0 [place] % (Auto) 15.7 H Eos % (Auto) 0.4 Baso % (Auto) 0.5 Absolute Neuts (auto) 6.1 Absolute Lymphs (auto) 3.29 Nucleated RBC % 0 Differential Comment SCANNED Diff Path Review May foll PT 14.8 INR 1.2 APTT 39.2 H Sodium 136 Potassium 3.8 Chloride 107 Carbon Dioxide 23.0 Anion Gap 6 BUN 14 Creatinine 0.82 Estim Creat Clear Calc 123.39 Est GFR (MDRD) Af Amer 130 Est GFR (MDRD) Non-Af 107 BUN/Creatinine Ratio 17.0 Glucose 103 Lactic Acid Calcium 8.8 Total Bilirubin 0.30 AST 21 ALT 19 Alkaline Phosphatase 56 Troponin I High Sens 66 Total Protein 7.6 Albumin 2.6 L Globulin 5.0 H Albumin/Globulin Ratio 0.5 L Urine Color Urine Clarity Urine pH Ur Specific [place] Urine Protein Urine Glucose (UA) Urine Ketones Urine Occult Blood Urine Nitrite Urine Bilirubin Urine Urobilinogen Ur Leukocyte Esterase Urine RBC Urine WBC Ur Squamous Epith Cells Urine Bacteria Urine Mucus Valproic Acid 12/31/22 12/31/22 12/31/22 16:25 16:25 17:00 WBC RBC Hgb Hct MCV MCH MCHC RDW Std Deviation RDW Coeff of Bel Plt Count MPV Immature Gran % (Auto) Neut % (Auto) Lymph % (Auto) [place] % (Auto) Eos % (Auto) Baso % (Auto) Absolute Neuts (auto) Absolute Lymphs (auto) Nucleated RBC % Differential Comment Diff Path Review PT INR APTT Sodium Potassium Chloride Carbon Dioxide Anion Gap BUN Creatinine Estim Creat Clear Calc Est GFR (MDRD) Af Amer Est GFR (MDRD) Non-Af BUN/Creatinine Ratio Glucose Lactic Acid 1.2 Calcium Total Bilirubin AST ALT Alkaline Phosphatase Troponin I High Sens Total Protein Albumin Globulin Albumin/Globulin Ratio Urine Color Betzaida Urine Clarity Cloudy Urine pH 6.0 Ur Specific [place] 1.020 Urine Protein 15 H Urine Glucose (UA) Normal Urine Ketones 15 H Urine Occult Blood 250 H Urine Nitrite Positive H Urine Bilirubin 1 H Urine Urobilinogen 4 H Ur Leukocyte Esterase 25 H Urine RBC 0-5 SEEN Urine WBC 0-5 SEEN Ur Squamous Epith Cells 0 SEEN Urine Bacteria 4+ Urine Mucus 0 SEEN Valproic Acid 78 Radiography Diagnostic Testing: Clinical Impression(s) from Imaging Studies Chest X-Ray 12/31/22 16:40 IMPRESSION: No acute cardiopulmonary disease or interval change Electronically Signed: Alfred Almonte DO at 16:56 EDT Reading Location ID and State: [address] [place] [address] Tel [phone], Service support , Discharge Plan Triage Chief Complaint: General Illness ED Provider: Jorge L Ahmadi Dx/Rx/DC Orders Prescriptions: No Action levothyroxine 75 mcg tablet 75 mcg PO DAILY clonazepam 0.5 mg tablet 0.5 mg PO BID atenolol 50 MG tablet 50 mg PO BID phenobarbital 64.8 mg tablet 64.8 mg PO DAILY Label Comments: TAKE 1 TABLET BY MOUTH EVERY DAY multivitamin with minerals 1 EACH tablet 1 tab PO DAILY Divalproex Sodium [Divalproex Sodium Er] 500 MG Tab.Er.24h 1,500 mg PO QHS potassium chloride 20 MEQ tablet 20 meq PO DAILY Qty: 10 0RF Primary Care Provider: Parvin Callahan Referrals: Parvin Callahan MD [Primary Care Provider] -
[2022-12-31 16:29] VITALS: BP 95/61; PULSE 108; RESP 24; TEMP 39.4; O2SAT 93
[2022-12-31] MEDS: Acetaminophen 500 MG Tablet 1000 MG PO (16:31)
[2022-12-31] MEDS: Ondansetron 4 MG/2 ML Vial IV (16:31)
--- NOTE | 2022-12-31 16:40 | RAD_ITS ---
STUDY: X-RAY CHEST REASON FOR EXAM: Male, 47 years old. Dyspnea. History of Marfan syndrome. TECHNIQUE: Single AP portable view of the chest. COMPARISON: April 24, 2020. FINDINGS: The lungs are clear and expanded. There is no demonstrated pleural abnormality. Normal size heart. Normal mediastinum and matthew. Normal visualized pulmonary arteries. Normal visualized aortic arch and descending thoracic aorta. No major osseous changes. There is no demonstrated abnormality of the visualized soft tissue structures of the upper abdomen. RAD/Chest 1 View (Portable) IMPRESSION: No acute cardiopulmonary disease or interval change Electronically Signed: Alfred Almonte DO at 16:56 EDT ,
[2022-12-31 16:50] LABS: Absolute Lymphocyte Count 3.29 X10^3/uL (0.83-4.51); Absolute Neutrophil Count 6.1 X10^3/uL (2.0-7.7); Basophil# 0.06 X10^3/uL; Basophil% 0.5 % (0-1); Eosinophil# 0.04 X10^3/uL; Eosinophils% 0.4 % (0-5); Hematocrit 37.6 % (40-54); Hemoglobin 12.5 g/dL (13.0-16.5); Lymphocyte # 3.29 X10^3/ul (0.83-4.51); Mean Corp Hgb Conc 33.2 g/dL (32-36); Mean Corpuscular Hgb 30.9 pg (27.0-32.0); Mean Corpuscular Volume 93.1 fL (80-94); Mean Platelet Vol. 9.8 fl (6.2-12.0); Monocyte# 1.78 X10^3/uL; Monocyte% 15.7 % (0-10); NRBC Flagged by Analyzer 0 % (0-5); Neutrophil # 6.13 X10^3/uL (2.7-7.7); POSITIVE DIFFERENTIAL YES; Platelet Count 325 K/mm3 (150-450); RBC Distribution Width CV 11.9 % (11.6-14.6); RBC Distribution Width SD 41.3 fl (35.1-43.9); Red Blood Count 4.04 M/mm3 (4.6-6.2); White Blood Count 11.4 K/mm3 (4.4-11.0)
[2022-12-31 16:59] LABS: International Normalized Ratio 1.2; Prothrombin Time (Protime)PT. 14.8 SECONDS (11.7-14.9)
[2022-12-31 17:00] LABS: Partial Thromboplast Time 39.2 Seconds (24.1-36.2)
[2022-12-31 17:06] LABS: Mucous, Urine 0 SEEN /hpf (<or=2+); Squamous Epithelial Cells - UA 0 SEEN /hpf (0-5)
[2022-12-31 17:07] LABS: Valproic Acid (Depakene) Level 78 ug/mL (50-100)
[2022-12-31 17:10] LABS: ALB/GLOB Ratio 0.5 RATIO (0.9-2.4); AST(SGOT) 21 U/L (15-37); Alanine Aminotransfer ALT/SGPT 19 U/L (16-61); Albumin, Serum 2.6 g/dL (3.2-5.0); Alkaline Phosphatase 56 U/L (45-117); Anion Gap 6 (5-15); BUN 14 mg/dL (7-18); Calcium,Total 8.8 mg/dL (8.5-10.1); Chloride 107 mmol/L (98-107); Creatinine, Serum 0.82 mg/dL (0.70-1.30); EST Glomerular Filtration Rate 107 mL/min (>60); Est Glom Filt Rate - Afr Amer 130 mL/min (>60); Estimated Creatinine Clearance 123.39 ml/min; Glucose 103 mg/dL (74-106); Potassium 3.8 mmol/L (3.5-5.1); Protein, Total 7.6 g/dL (6.4-8.2); Sodium Level 136 mmol/L (136-145); Troponin-I HS 66 pg/mL (3.0-78.0)
[2022-12-31 17:17] LABS: Lactic Acid 1.2 mmol/L (0.4-1.9)
[2022-12-31 17:25] LABS: Color, Urine Amber (Yellow); Glucose, Dipstick Normal (Normal); Ketone-Dipstick 15 mg/dl (Negative); Leukocyte Esterase-Dipstick 25 /ul (Negative); Nitrite-Dipstick Positive (Negative); Occult Blood-Urine 250 /ul (Negative); Protein-Dipstick 15 mg/dl (Negative); Urine Bilirubin Dipstick 1 mg/dL (Negative); Urine Clarity Cloudy (Clear); Urine Urobilinogen 4 mg/dl (Normal)
[2022-12-31 17:29] LABS: Red Blood Cells-Urine 0-5 SEEN /hpf (0-5); White Blood Cells 0-5 SEEN /hpf (0-5)
[2022-12-31 17:30] VITALS: BP 94/51; PULSE 94; RESP 18; TEMP 36.6; O2SAT 95
[2022-12-31 17:30] LABS: Bacteria 4+ /hpf (None Seen)
[2022-12-31 17:39] LABS: Differential Indicated SCAN CRITERIA MET
[2022-12-31] MEDS: Ceftriaxone 1 GM/50 ML BAG IV (17:51)
[2022-12-31 17:55] LABS: Differential Comment SCANNED
--- NOTE | 2022-12-31 19:00 | HP.PCM_ITS ---
HPI - General General Date of Admission: 12/31/22 Date of Service: 12/31/22 Chief Complaint: Decreased intake, foul urine, increased confusion. HPI Narrative The patient is a 47 y/o M w/ PMHx: HTN, MRDD component with associated Seizure disorder, Marfan syndrome w/ known dilated aortic root 5.0 cm, Anxiety who presents to the [facility] ED on 12/31/22 with history of notable decreased oral intake including both food and liquids with elevated temperatures at home reported as febrile per family although unable to give exact temperature with no emesis but potentially nausea and no significant pain however patient's urine has smelled significantly foul prompting family to bring him in for evaluation. The patient has been more encephalopathic, fatigued. Family present does report that patient can normally move and is up and about and can use the steps however he does have decreased interactive ability and normally does respond with yes or no but this has been significantly decreased and he has even been active over the last several days because of his acute presentation. Work-up in the ED included T max 102.9, heart initially 108, BP 95/61, respiratory rate 24, 93% oxygenation with most recent vital signs T97.8, heart rate 94, BP 94/51, respiratory rate 18, 95% on room air, CBC with WC 11.4, hemoglobin 12.5, MCV 93.1, platelet 325 without marked shift, unremarkable coags aside PTT 39.2, CMP unremarkable, lactic acid 1.2, troponin 66, urinalysis with elevated specific [place] 1.020, protein 15, ketone 15, occult blood 250, positive nitrite, leukocyte Estrace 25 with 4+ urine bacteria but no marked urine WBCs or RBCs, urine culture pending per ED, blood culture x2 pending per ED rapid SARS COVID and influenza negative, chest x-ray with no acute cardiopulmonary findings. In the ED patient administered 3 L NS total, tylenol 1000 mg x 1, rocephin 1 gm, zofran 4 mg IV x 1. [facility] Medical History Anxiety Dilatation of aortic root due to Marfan syndrome Essential hypertension Hypothyroidism Marfan syndrome Seizure disorder Home Medications atenolol 50 mg tablet 50 mg PO BID BP 01/15/18 [History Last Taken Unknown] clonazepam 0.5 mg tablet 0.5 mg PO BID ANXIETY 03/22/19 [History Last Taken Unknown] levothyroxine 75 mcg tablet 75 mcg PO DAILY THYROID 03/22/19 [History Last Taken Unknown] Divalproex Sodium [Divalproex Sodium Er] 1,500 mg PO QHS SEIZURES 04/24/20 [ History Last Taken Unknown] multivitamin with minerals 1 tab PO DAILY SUPPLEMENT 04/24/20 [History Last Taken Unknown] phenobarbital 64.8 mg tablet 64.8 mg PO DAILY SEIZURES 04/24/20 [History Last Taken Unknown] potassium chloride 20 mEq tablet,extended release(part/cryst) 20 meq PO DAILY Check with primary doctor 12/31/22 [History Last Taken Unknown] Allergy/AdvReac Type Severity Reaction Status Date / Time No Known Allergies Allergy Verified 12/31/22 16:13 Family History (Updated 12/31/22 @ 19:[address] Ivonne Tavares MD) Mother Hypertension Marfans syndrome Uncle Marfans syndrome Ruptured, aorta Uncle Marfans syndrome Ruptured, aorta Father CAD (coronary artery disease) Heart disease Hypertension Surgical History dislocated lenses, removed hamstring lengthening bilateral Social History (Updated 12/31/22 @ 19:[address] Ivonne Tavares MD) household members: family Smoking Status: Never smoker alcohol intake: never substance use type: does not use caffeine: Yes Type: carbonated beverages Number of servings: 1 and coffee Number of servings: 2 ROS Review of Systems ROS Unobtainable: due to encephalopathy and due to mental condition Vital Signs Vital Signs Vital Signs: 12/31/22 16:14 12/31/22 16:17 12/31/22 16:29 Temperature 98.2 F 102.9 F H Temperature Source Temporal Axillary Pulse Rate 74 108 H Respiratory Rate 18 24 H Respiratory Effort Normal Non-Labored Respiratory Pattern Normal Blood Pressure 111/74 95/61 Blood Pressure Mean 86 72 Pulse Ox 95 93 Oxygen Delivery Method Room Air Room Air 12/31/22 17:30 Temperature 97.8 F Temperature Source Oral Pulse Rate 94 Respiratory Rate 18 Respiratory Effort Respiratory Pattern Blood Pressure 94/51 L Blood Pressure Mean 65 Pulse Ox 95 Oxygen Delivery Method Room Air Weight Weight: 170 lb 13.732 oz Body Mass Index (BMI) 20.7 Physical Exam Narrative Physical Examination: General: Awake, alert but unable to answer any orientation questions, family notes he can usually respond at least yes or no, notably encephalopathic, not f ollowing commands, seated upright in the ED bed, fatigued and disheveled appearing. Skin: Normal color, normal turgor, no icterus, no cyanosis except occasional abrasion. HEENT: AT/NC, EOMI but difficult assessment as occurs primarily with walking to each side of the bed, PERRLA, dry MM, no carotid bruits or JVD noted, poor dentition. Lungs: CTA bilaterally, moderate effort, mild decrease BL bases, no rales, ronchi or wheezing. Heart: Proving, mildly tachycardic with regular rhythm; no gallop, rub audible. Abdomen: Soft, NTTP except mild suprapubic discomfort with grimacing with evaluation, ND, hyperactive BS, no HSM. Extremities: No cyanosis, no clubbing, bilateral pedal edema but nonpitting Neurological: Awake, alert but unable to answer any orientation questions, family notes he can usually respond at least yes or no, notably encephalopathic, not following commands, seated upright in the ED bed, fatigued and disheveled appearing, cognitive function reduced baseline with underlying MRDD but currently not baseline intact; pupils equally reactive to light and accommodation, cranial nerves appear grossly normal but difficult assessment, moving all 4 extremities, no focal deficits, strength severely global decrease secondary to acute presentation. Psychiatric: Affect appears flat, fatigued, ill-appearing, no acute evidence of depressive or anxiety feelings but does have underlying anxiety per his. Results Lab / Micro Data Result Diagrams: 12/31/22 16:25 12/31/22 16:25 Labs: Laboratory Results - last 24 hr 12/31/22 16:25: WBC 11.4 H, RBC 4.04 L, Hgb 12.5 L, Hct 37.6 L, MCV 93.1, MCH 30.9, MCHC 33.2, RDW Std Deviation 41.3, RDW Coeff of Bel 11.9, Plt Count 325, MPV 9.8, Immature Gran % (Auto) 0.400, Neut % (Auto) 54.0, Lymph % (Auto) 29.0, Caroline % (Auto) 15.7 H, Eos % (Auto) 0.4, Baso % (Auto) 0.5, Absolute Neuts (auto) 6.1, Absolute Lymphs (auto) 3.29, Nucleated RBC % 0, Differential Comment SCANNED, Diff Path Review January12/31/22 16:25: PT 14.8, INR 1.2, APTT 39.2 H 12/31/22 16:25: Sodium 136, Potassium 3.8, Chloride 107, Carbon Dioxide 23.0, Anion Gap 6, BUN 14, Creatinine 0.82, Estim Creat Clear Calc 123.39, Est GFR (MDRD) Af Amer 130, Est GFR (MDRD) Non-Af 107, BUN/Creatinine Ratio 17.0, Glucose 103, Calcium 8.8, Total Bilirubin 0.30, AST 21, ALT 19, Alkaline Phosphatase 56, Troponin I High Sens 66, Total Protein 7.6, Albumin 2.6 L, G lobulin 5.0 H, Albumin/Globulin Ratio 0.5 L 12/31/22 16:25: Valproic Acid 78 12/31/22 16:25: Lactic Acid 1.2 12/31/22 17:00: Urine Color Betzaida, Urine Clarity Cloudy, Urine pH 6.0, Ur Specific [place] 1.020, Urine Protein 15 H, Urine Glucose (UA) Normal, Urine Ke tones 15 H, Urine Occult Blood 250 H, Urine Nitrite Positive H, Urine Bilirubin 1 H, Urine Urobilinogen 4 H, Ur Leukocyte Esterase 25 H, Urine RBC 0-5 SEEN, Urine WBC 0-5 SEEN, Ur Squamous Epith Cells 0 SEEN, Urine Bacteria 4+, Urine Mucus 0 SEEN Micro: Microbiology 12/31/22 17:00 Nasal Secretion SARS-CoV-2 & FLU Antigen (Rapid) - Final Radiology Impression Chest X-Ray 12/31/22 16:40 IMPRESSION: No acute cardiopulmonary disease or interval change Electronically Signed: Alfred Almonte DO at 16:56 EDT Reading Location ID and State: [facility] / [place] Tel [phone], Service support , Assessment & Plan Assessment/Plan (1) Complicated UTI (urinary tract infection): PLAN: Plan The patient is a 47 y/o M w/ PMHx: HTN, MRDD component with associated Seizure disorder, Marfan syndrome w/ known dilated aortic root 5.0 cm, Anxiety who presents to the [facility] ED on 12/31/22 with history of notable decreased oral intake including both food and liquids with elevated temperatures at home reported as febrile per family although unable to give exact temperature with no emesis but potentially nausea and no significant pain however patient's urine has smelled significantly foul prompting family to bring him in for evaluation. #1. Acute Encephalopathy secondary to Acute Complicated Urinary Tract Infection with stable chronic low BPs (baseline SBP 90s from review of prior trends of note): Will admit to medical surgical floor, UA upon ED evaluation remarkable, pending UCx, continue IVFs, monitor I/Os, continue IV Rocephin w/ transition as able pending sensitivities and speciation. Bld cx x 2 obtained in the ED. #2. Normocytic anemia, acute on previously chronically noted 2019: Admission hemoglobin 12.5, prior to this 04/21/2020 214.3 however in 2019 patient did have a baseline 10-12 however this is suspected to be likely more acute phase, guaiac requested, iron panel, ferritin. #3. Known dilated aortic root: Most recent CT chest with contrast noted 06/03/2020 with aneurysmal dilatation aortic root measuring 5 cm in transverse dimension with normal caliber of the descending aorta and aortic arch, encourage continued outpatient follow-up and evaluation. #4. Underlying MRDD with limited interactive ability baseline, Seizure disorder: We will continue patient home phenobarbital as well as Depakote level. Level requested given encephalopathy on chronic decreased cognitive ability. If level is low given decreased intake ability or unable to take his oral AEDs will transition to IV with load if level notably decreased. #5. Anxiety: We will continue twice daily clonazepam regimen. #6. Hypothyroidism: We will continue patient levothyroxine regimen. #7. Hypertension: We will continue patient home atenolol regimen with hold parameters although patient runs routinely systolic in the 90s from review of records. #8. DVT prophylaxis: Lovenox. #9. CODE status: Patient does not HCPOA nor living will in place. Discussed CODE status at length with his family present including difference between FULL code, DNR-CCA and DNR-CC status. Following discussions about the differences in these status, requested DNR-CCA, no intubation status. Advanced Care Planning Face to Face Time: 16 minutes. Admission Evaluation Time spent evaluating chart, patient history, patient evaluation, care planning and discussion with specialists: 75 minutes. Charges/Coding Visit Charges Inpatient E&M: 37018 Init Hosp L3 Procedures Hospitalists Procedures: 90384 Advncd Care Plan 30 Min
[2022-12-31 19:30] LABS: Magnesium 1.8 mg/dL (1.6-2.6); Phosphorus 3.1 mg/dL (2.5-4.9)
[2022-12-31 19:33] VITALS: BP 99/65; PULSE 82; RESP 26; TEMP 35.9; O2SAT 94
[2022-12-31 19:55] VITALS: BP 87/45; PULSE 80; RESP 16; TEMP 36.4; O2SAT 94
[2022-12-31 19:56] VITALS: BMI 21.2
[2022-12-31] MEDS: 0.9% Normal Saline 1,000 ML 100 ML IV (20:30)
[2022-12-31] MEDS: Divalproex (ER) 500 MG Tablet 1500 MG PO (21:08)
[2022-12-31] MEDS: clonazePAM 0.5 MG Tablet PO (21:08)
[2022-12-31] MEDS: 0.9% Saline Lock 10 ML Syringe IV (21:30)
[2022-12-31] MEDS: Menthol/Lanolin/Calamine/Znox 113 GM Tube 1 APPLIC TOPICAL (22:30)
[2022-12-31 22:50] VITALS: BP 86/57; PULSE 67; RESP 20; TEMP 35.7; O2SAT 95
[2023-01-01] VITALS (7 sets, daily range): BP systolic 85–116; BP diastolic 56–88; PULSE 61–104; RESP 16–18; TEMP 35.5–38.7; O2SAT 91–99; BMI 21.2
[2023-01-01] MEDS: Levothyroxine 75 MCG Tablet PO (05:30)
[2023-01-01] MEDS: 0.9% Normal Saline 1,000 ML 100 ML IV (06:06)
[2023-01-01 06:39] LABS: Absolute Lymphocyte Count 1.84 X10^3/uL (0.83-4.51); Absolute Neutrophil Count 4.7 X10^3/uL (2.0-7.7); Basophil# 0.04 X10^3/uL; Basophil% 0.5 % (0-1); Eosinophil# 0.06 X10^3/uL; Eosinophils% 0.8 % (0-5); Hematocrit 34.6 % (40-54); Hemoglobin 11.3 g/dL (13.0-16.5); Lymphocyte # 1.84 X10^3/ul (0.83-4.51); Lymphocyte % 23.7 % (19-41); Mean Corp Hgb Conc 32.7 g/dL (32-36); Mean Corpuscular Hgb 31.2 pg (27.0-32.0); Mean Corpuscular Volume 95.6 fL (80-94); Mean Platelet Vol. 9.6 fl (6.2-12.0); Monocyte# 1.05 X10^3/uL; Monocyte% 13.5 % (0-10); NRBC Flagged by Analyzer 0 % (0-5); Neutrophil # 4.73 X10^3/uL (2.7-7.7); Neutrophil % 61.1 % (47-70); Platelet Count 257 K/mm3 (150-450); RBC Distribution Width CV 12.1 % (11.6-14.6); RBC Distribution Width SD 42.5 fl (35.1-43.9); Red Blood Count 3.62 M/mm3 (4.6-6.2); White Blood Count 7.8 K/mm3 (4.4-11.0)
[2023-01-01 07:14] LABS: ALB/GLOB Ratio 0.5 RATIO (0.9-2.4); AST(SGOT) 11 U/L (15-37); Alanine Aminotransfer ALT/SGPT 14 U/L (16-61); Albumin, Serum 2.2 g/dL (3.2-5.0); Alkaline Phosphatase 48 U/L (45-117); Anion Gap 3 (5-15); BUN 9 mg/dL (7-18); BUN/Creat Ratio 12.7 RATIO (10-20); Calcium,Total 8.3 mg/dL (8.5-10.1); Chloride 113 mmol/L (98-107); Creatinine, Serum 0.71 mg/dL (0.70-1.30); EST Glomerular Filtration Rate 127 mL/min (>60); Est Glom Filt Rate - Afr Amer 154 mL/min (>60); Estimated Creatinine Clearance 137.91 ml/min; Ferritin 195 ng/mL (26-388); Globulin 4.3 g/dL (2.2-4.2); Glucose 100 mg/dL (74-106); Iron 35 ug/dL (65-175); Iron Binding Capacity,Total 180 ug/dL (250-450); PERCENT IRON SATURATION 19.4 % (15.0-55.0); Potassium 3.8 mmol/L (3.5-5.1); Protein, Total 6.5 g/dL (6.4-8.2); Sodium Level 139 mmol/L (136-145)
--- NOTE | 2023-01-01 07:22 | PN.HOSP_ITS ---
Reason for Visit Reason for Visit: Diagnoses Urinary tract infection, site not specified (12/31/22) Subjective Subjective Awake but non verbal. Objective Data Objective Data Vital Signs: Vital Signs Temp Pulse Resp BP Pulse Ox O2 Del Method 36.8 C 61 18 115/88 H 96 Room Air 01/01/23 05:06 01/01/23 05:06 01/01/23 05:06 01/01/23 05:06 01/01/23 06:32 01/01/23 06:32 Oxygen Delivery Method Room Air Weight: 75 kg Body Mass Index (BMI) 21.2 Intake & Output: Intake and Output for Last 24 Hours 12/30/22 12/31/22 01/01/23 23:59 23:59 23:59 Intake Total 2550 / 2650 1060 / 1060 Output Total 550 / 550 Balance 2550 / 2650 510 / 510 Lab / Micro Data Result Diagrams: 01/01/23 06:15 01/01/23 06:15 Labs: Laboratory Results - last 24 hr 12/31/22 16:25: WBC 11.4 H, RBC 4.04 L, Hgb 12.5 L, Hct 37.6 L, MCV 93.1, MCH 30.9, MCHC 33.2, RDW Std Deviation 41.3, RDW Coeff of Bel 11.9, Plt Count 325, MPV 9.8, Immature Gran % (Auto) 0.400, Neut % (Auto) 54.0, Lymph % (Auto) 29.0, [place] % (Auto) 15.7 H, Eos % (Auto) 0.4, Baso % (Auto) 0.5, Absolute Neuts (auto) 6.1, Absolute Lymphs (auto) 3.29, Nucleated RBC % 0, Differential Comment SCANNED, Diff Path Review January foll 12/31/22 16:25: PT 14.8, INR 1.2, APTT 39.2 H 12/31/22 16:25: Sodium 136, Potassium 3.8, Chloride 107, Carbon Dioxide 23.0, Anion Gap 6, BUN 14, Creatinine 0.82, Estim Creat Clear Calc 123.39, Est GFR (MDRD) Af Amer 130, Est GFR (MDRD) Non-Af 107, BUN/Creatinine Ratio 17.0, Glucose 103, Calcium 8.8, Total Bilirubin 0.30, AST 21, ALT 19, Alkaline Phosphatase 56, Troponin I High Sens 66, Total Protein 7.6, Albumin 2.6 L, Globulin 5.0 H, Albumin/Globulin Ratio 0.5 L 12/31/22 16:25: Valproic Acid 78 12/31/22 16:25: Lactic Acid 1.2 12/31/22 16:25: Phosphorus 3.1, Magnesium 1.8 12/31/22 16:25: Valproic Acid Cancelled 12/31/22 17:00: Urine Color Betzaida, Urine Clarity Cloudy, Urine pH 6.0, Ur Specific [place] 1.020, Urine Protein 15 H, Urine Glucose (UA) Normal, Urine Ketones 15 H, Urine Occult Blood 250 H, Urine Nitrite Positive H, Urine Bilirubin 1 H, Urine Urobilinogen 4 H, Ur Leukocyte Esterase 25 H, Urine RBC 0-5 SEEN, Urine WBC 0-5 SEEN, Ur Squamous Epith Cells 0 SEEN, Urine Bacteria 4+, Urine Mucus 0 SEEN 01/01/23 06:15: WBC 7.8, RBC 3.62 L, Hgb 11.3 L, Hct 34.6 L, MCV 95.6 H, MCH 31.2, MCHC 32.7, RDW Std Deviation 42.5, RDW Coeff of Bel 12.1, Plt Count 257, MPV 9.6, Immature Gran % (Auto) 0.400, Neut % (Auto) 61.1, Lymph % (Auto) 23.7, [place] % (Auto) 13.5 H, Eos % (Auto) 0.8, Baso % (Auto) 0.5, Absolute Neuts (auto) 4.7, Absolute Lymphs (auto) 1.84, Nucleated RBC % 0 01/01/23 06:15: Sodium 139, Potassium 3.8, Chloride 113 H, Carbon Dioxide 23.0, Anion Gap 3 L, BUN 9, Creatinine 0.71, Estim Creat Clear Calc 137.91, Est GFR (MDRD) Af Amer 154, Est GFR (MDRD) Non-Af 127, BUN/Creatinine Ratio 12.7, Glucose 100, Calcium 8.3 L, Iron 35 L, TIBC 180 L, Iron Saturation 19.4, Ferritin 195, Total Bilirubin 0.20, AST 11 L, ALT 14 L, Alkaline Phosphatase 48, Total Protein 6.5, Albumin 2.2 L, Globulin 4.3 H, Albumin/Globulin Ratio 0.5 L Micro: Microbiology 12/31/22 17:00 Nasal Secretion SARS-CoV-2 & FLU Antigen (Rapid) - Final Radiography Diagnostic Testing: Radiology Impression Chest X-Ray 12/31/22 16:40 IMPRESSION: No acute cardiopulmonary disease or interval change Electronically Signed: Alfred Almonte, DO at 16:56 EDT Reading Location ID and State: [address] [place] [address] Tel [phone], Service support , Physical Exam Const alert Constitutional Narrative: non verbal. does not follow commands. Eyes Eyes Narrative: shimmering visible clear fluid in bilateral anterior chambers of his eyes. Resp normal respiratory effort, no retractions, no use of accessory muscles and clear to auscultation bilaterally Cardio regular rate, regular rhythm, S1 normal heart sound and S2 normal heart sound GI normal to inspection, nondistended, normoactive bowel sounds, soft to palpation and non-tender Assessment & Plan Assessment/Plan (1) Metabolic encephalopathy: PLAN: Acute Metabolic Encephalopathy secondary dehydration. Avoid potentiating medications (2) Complicated UTI (urinary tract infection): PLAN: Ruled out. Only 0-5 WBCs on UA. DC abx and observe. (3) Bacteremia: PLAN: Unclear if true infection v contamination 1 of 2 positive for GPC in clusters. Concerning for S. aureua (unclear source) Start vancomycin Follow up cultures, recheck cultures. PLAN: Plan The patient is a 47 y/o M w/ PMHx: HTN, MRDD component with associated Seizure disorder, Marfan syndrome w/ known dilated aortic root 5.0 cm, Anxiety who presents to the [facility] ED on 12/31/22 with history of notable decreased oral intake including both food and liquids with elevated temperatures at home reported as febrile per family although unable to give exact temperature with no emesis but potentially nausea and no significant pain however patient's urine has smelled significantly foul prompting family to bring him in for evaluation. Chronic conditoins: * Normocytic anemia, acute on previously chronically noted 2019: Admission hemoglobin 12.5, prior to this 04/21/2020 214.3 however in 2019 patient did have a baseline 10-12 however this is suspected to be likely more acute phase, guaiac requested, iron panel, ferritin. * Known dilated aortic root: Most recent CT chest with contrast noted 06/03/2020 with aneurysmal dilatation aortic root measuring 5 cm in transverse dimension with normal caliber of the descending aorta and aortic arch, encourage continued outpatient follow-up and evaluation. * Underlying MRDD with limited interactive ability baseline, Seizure disorder: We will continue patient home phenobarbital as well as Depakote level. Level requested given encephalopathy on chronic decreased cognitive ability. If level is low given decreased intake ability or unable to take his oral AEDs will transition to IV with load if level notably decreased. * Anxiety: We will continue twice daily clonazepam regimen. * Hypothyroidism: We will continue patient levothyroxine regimen. * Hypertension: We will continue patient home atenolol regimen with hold parameters although patient runs routinely systolic in the 90s from review of records. * Seizure disorder: continue phenobarbital DVT prophylaxis: Lovenox. CODE status: DNR-CCA, no intubation status. Charges/Coding Visit Charges Inpatient E&M: 61543 Subs Hosp L2
[2023-01-01] MEDS: Potassium Chloride Oral Tablet 20 MEQ PO (09:02)
[2023-01-01] MEDS: Enoxaparin 40 MG/0.4 ML Syringe SC (09:02)
[2023-01-01] MEDS: Menthol/Lanolin/Calamine/Znox 113 GM Tube 1 APPLIC TOPICAL ×4 (09:02→21:07)
[2023-01-01] MEDS: clonazePAM 0.5 MG Tablet PO ×2 (09:04→21:06)
[2023-01-01] MEDS: Phenobarbital 32.4 MG Tablet 64.8 MG PO (09:04)
--- NOTE | 2023-01-01 11:45 | CASEMGMT ---
RN CM NOTE: Call placed to pt's parents' home to complete initial RN CM assessment. No answer. RN CM to attempt at a later time. Jennifer OLVERAN RN CM
[2023-01-01 12:15] LABS: Pathologist Review Reviewed
[2023-01-01] MEDS: 0.9% Normal Saline 1,000 ML 150 ML IV ×2 (12:53→18:02)
--- NOTE | 2023-01-01 14:14 | CASEMGMT ---
Addendum entered by Nathalie Howard 01/01/23 15:56: Received acceptance from [facility]. TC to pt mother to make aware, green sheet on chart. Addendum entered by Nathalie Howard 01/01/23 15:45: Received confirmation from [facility] that they cannot accept pt. TC to Rosa at [facility], she is not sure they will take pt insurance but requests to review. Addendum entered by Nathalie Howard 01/01/23 15:26: Received tc back from Shruti at [facility], they are unable to staff pt. TC to pt mother, she is aware.Pt mother was provided a verbal list of [facility] providers including quality and resource use data and consistent with the patient?s preferred geographic region, medical needs, and insurance network [facility]. She declined to have this emailed or texted to her. She chose 1. [facility] 2. [facility] 3. [facility]. Referrals sent via careport to all three agencies. Original Note: MARGO CRISTINA Assessment: TC to pt mother Jacki Coffey for initial transition planning/care coordination assessment. MARGO CRISTINA introduced self and role at [facility], pt mother voices understanding and consents to assessment.Care providers, pharmacy, and demographics verified/updated. Pt does not have a LW/DPOA. Admitting Dx: encephalopathy, UTI PCP:[place] Specialists: [place], neurology, [facility], cardio Preferred Pharmacy: [facility] Insurance: My Care [facility], [facility] Prescription Benefit: yes LNOK: Alhaji and Jacki Coffey, parents; Smita Coffey, sister Living Arrangements: Pt lives with parents and brother in a two story home. Pt was able to navigate the stairs until pt was sick prior to hospitalization. Pt able to feed self. Pt mother assists pt with bathing, dressing, meals, meds, laundry and housekeeping tasks. Transportation: Pt mother's friends and pt sisters transport him to medical appts. DME/HHC/SNF: Pt has shower chair and BSC if needed. Pt mother denies need for any other DME. Pt mother states pt has had [facility]HC in the past, denies SNF stays. Pt mother states no concerns with going home at time of dc. She is interested in therapy short term when pt returns home. She would like [facility] again. She denies a need for a list of other options. Pt mother states no further concerns/needs. CM to follow. Advised pt mother to ask CM if any further question/concerns/needs arise, voices understanding. Pt Mother's Goal: Home with [facility] Plan: Home with [facility] MATT Bahena at [facility], referral made for therapy.
--- NOTE | 2023-01-01 15:22 | NURSING ---
This RN bladder scanned pt at 1330 because pt had not voided since being straight cathed earlier this morning. Bladder scan showed 693ml of urine. This RN inserted a white catheter at 1430 since it was the third time having to cath pt. 850ml of urine was obtained when inserting white.
--- NOTE | 2023-01-01 16:35 | PCM.RX.CS ---
Consult Pharmacy has been consulted to manage selected antiobiotic: Vancomycin Type of Consult: New start Suspected Infection: Other Labs: Sodium 139 mmol/L (136-145) 01/01/23 06:15 Potassium 3.8 mmol/L (3.5-5.1) 01/01/23 06:15 Chloride 113 mmol/L (98-107) H 01/01/23 06:15 Carbon Dioxide 23.0 mmol/L (21.0-32.0) 01/01/23 06:15 Anion Gap 3 (5-15) L 01/01/23 06:15 BUN 9 mg/dL (7-18) 01/01/23 06:15 Creatinine 0.71 mg/dL (0.70-1.30) 01/01/23 06:15 Est GFR (MDRD) Af Amer 154 mL/min (>60) 01/01/23 06:15 Est GFR (MDRD) Non-Af 127 mL/min (>60) 01/01/23 06:15 BUN/Creatinine Ratio 12.7 RATIO (10-20) 01/01/23 06:15 Glucose 100 mg/dL (74-106) 01/01/23 06:15 Microbiology: Microbiology 12/31/22 16:50 Blood Culture (Wb) - Right Forearm Blood Culture - Preliminary 12/31/22 16:25 Blood Culture (Wb) - Left Forearm Blood Culture - Preliminary 12/31/22 17:00 Urine, Catheterized Urine Culture - Preliminary Mixed Gram Positive Organisms 12/31/22 17:00 Nasal Secretion SARS-CoV-2 & FLU Antigen (Rapid) - Final Goal Trough: 15-20 mcg/mL Pharmacy Plan for Drug Dosing: NEW START IV VANCOMYCIN Consulting Physician: Dr. Chaidez Indication: UTI Goal Trough: 15-20 SrCr: 0.71 CrCl: >100mL/min Comments: Loading dose 2000mg IV x1 ordered and administered 01/01/23 @1510 Vancomycin Dose: 1000mg IV Q8h to start 01/01/23 @2300 Pending Level: 01/02/23 @1430, prior to 4th total dose per protocol Pharmacy Service will continue to monitor and adjust dosing as required.
[2023-01-01] MEDS: Atenolol 50 MG Tablet PO (21:07)
[2023-01-01] MEDS: Divalproex (ER) 500 MG Tablet 1500 MG PO (21:07)
[2023-01-01] MEDS: Acetaminophen 325 MG Tablet 650 MG PO (21:14)
[2023-01-01] MEDS: Vancomycin IV 1,000 MG/200 ML BAG 200 MG IV (23:09)
[2023-01-02] MEDS: 0.9% Normal Saline 1,000 ML 150 ML IV ×4 (01:52→22:35)
[2023-01-02 02:06] VITALS: BP 96/57; PULSE 76; RESP 18; TEMP 36.4; O2SAT 93
[2023-01-02] MEDS: 0.9% Saline Lock 10 ML Syringe IV (05:01)
[2023-01-02] MEDS: Levothyroxine 75 MCG Tablet PO (05:02)
[2023-01-02 05:20] LABS: Absolute Lymphocyte Count 2.46 X10^3/uL (0.83-4.51); Absolute Neutrophil Count 4.1 X10^3/uL (2.0-7.7); Basophil# 0.02 X10^3/uL; Basophil% 0.3 % (0-1); Eosinophil# 0.08 X10^3/uL; Hematocrit 29.3 % (40-54); Hemoglobin 9.7 g/dL (13.0-16.5); Lymphocyte # 2.46 X10^3/ul (0.83-4.51); Lymphocyte % 31.9 % (19-41); Mean Corp Hgb Conc 33.1 g/dL (32-36); Mean Corpuscular Hgb 31.4 pg (27.0-32.0); Mean Corpuscular Volume 94.8 fL (80-94); Mean Platelet Vol. 9.6 fl (6.2-12.0); Monocyte# 1.04 X10^3/uL; Monocyte% 13.5 % (0-10); NRBC Flagged by Analyzer 0 % (0-5); Neutrophil # 4.08 X10^3/uL (2.7-7.7); Neutrophil % 52.8 % (47-70); Platelet Count 273 K/mm3 (150-450); RBC Distribution Width CV 12.1 % (11.6-14.6); RBC Distribution Width SD 41.9 fl (35.1-43.9); Red Blood Count 3.09 M/mm3 (4.6-6.2); White Blood Count 7.7 K/mm3 (4.4-11.0)
[2023-01-02 05:29] LABS: Anion Gap 3 (5-15); BUN 6 mg/dL (7-18); BUN/Creat Ratio 11.3 RATIO (10-20); Calcium,Total 7.8 mg/dL (8.5-10.1); Chloride 114 mmol/L (98-107); Creatinine, Serum 0.53 mg/dL (0.70-1.30); EST Glomerular Filtration Rate 178 mL/min (>60); Est Glom Filt Rate - Afr Amer 216 mL/min (>60); Estimated Creatinine Clearance 184.75 ml/min; Glucose 97 mg/dL (74-106); Potassium 3.3 mmol/L (3.5-5.1); Sodium Level 140 mmol/L (136-145)
[2023-01-02 05:43] VITALS: BMI 22.1
[2023-01-02] MEDS: Vancomycin IV 1,000 MG/200 ML BAG 200 MG IV ×3 (06:29→22:34)
--- NOTE | 2023-01-02 07:18 | PN.HOSP_ITS ---
Reason for Visit Reason for Visit: Diagnoses Metabolic encephalopathy (12/31/22) Urinary tract infection, site not specified (12/31/22) Bacteremia (12/31/22) Subjective Subjective Non-verbal. Objective Data Objective Data Vital Signs: Vital Signs Temp Pulse Resp BP Pulse Ox O2 Del Method 36.4 C L 76 18 96/57 L 93 Room Air 01/02/23 02:06 01/02/23 02:06 01/02/23 02:06 01/02/23 02:06 01/02/23 02:06 01/02/23 02:06 Oxygen Delivery Method Room Air Weight: 78.2 kg Body Mass Index (BMI) 22.1 Intake & Output: Intake and Output for Last 24 Hours 12/31/22 01/01/23 01/02/23 23:59 23:59 23:59 Intake Total 2550 / 2650 3290.83 / 3290.83 1200 / 1200 Output Total 1600 / 2500 2350 / 2350 Balance 2550 / 2650 1690.83 / 790.83 -1150 / -1150 Lab / Micro Data Result Diagrams: 01/02/23 04:59 01/02/23 04:59 Labs: Laboratory Results - last 24 hr 12/31/22 16:25: Diff Path Review Reviewed 12/31/22 17:00: Urine Color Betzaida, Urine Clarity Cloudy, Urine pH 6.0, Ur Specific [place] 1.020, Urine Protein 15 H, Urine Glucose (UA) Normal, Urine Ketones 15 H, Urine Occult Blood 250 H, Urine Nitrite Positive H, Urine Bilirubin 1 H, Urine Urobilinogen 4 H, Ur Leukocyte Esterase 25 H, Urine RBC 0-5 SEEN, Urine WBC 0-5 SEEN, Ur Squamous Epith Cells 0 SEEN, Urine Bacteria 4+, Ur ine Mucus 0 SEEN 01/02/23 04:59: WBC 7.7, RBC 3.09 L, Hgb 9.7 L, Hct 29.3 L, MCV 94.8 H, MCH 31.4, MCHC 33.1, RDW Std Deviation 41.9, RDW Coeff of Bel 12.1, Plt Count 273, MPV 9.6, Immature Gran % (Auto) 0.500, Neut % (Auto) 52.8, Lymph % (Auto) 31.9, [place] % (Auto) 13.5 H, Eos % (Auto) 1.0, Baso % (Auto) 0.3, Absolute Neuts (auto) 4.1, Absolute Lymphs (auto) 2.46, Nucleated RBC % 0 01/02/23 04:59: Sodium 140, Potassium 3.3 L, Chloride 114 H, Carbon Dioxide 23.0, Anion Gap 3 L, BUN 6 L, Creatinine 0.53 L, Estim Creat Clear Calc 184.75, Est GFR (MDRD) Af Amer 216, Est GFR (MDRD) Non-Af 178, BUN/Creatinine Ratio 11.3, Glucose 97, Calcium 7.8 L Micro: Microbiology 12/31/22 16:50 Blood Culture (Wb) - Right Forearm Blood Culture - Preliminary 12/31/22 16:25 Blood Culture (Wb) - Left Forearm Blood Culture - Preliminary 12/31/22 17:00 Urine, Catheterized Urine Culture - Preliminary Mixed Gram Positive Organisms 12/31/22 17:00 Nasal Secretion SARS-CoV-2 & FLU Antigen (Rapid) - Final Physical Exam Const alert Constitutional Narrative: non-verbal HEENT head/scalp atraumatic and moist oral mucous membranes Resp normal respiratory effort, no retractions, no use of accessory muscles and clear to auscultation bilaterally Cardio regular rate, regular rhythm, S1 normal heart sound and S2 normal heart sound GI normal to inspection, nondistended, normoactive bowel sounds and soft to palpation Extremity Extremity Narrative: edema in LE. Assessment & Plan Assessment/Plan (1) Metabolic encephalopathy: PLAN: Acute Metabolic Encephalopathy secondary dehydration. Avoid potentiating medications (2) Complicated UTI (urinary tract infection): PLAN: Ruled out. Only 0-5 WBCs on UA. DC abx and observe. (3) Bacteremia: PLAN: 2 of 2 positive for GPC in clusters. Concerning for S. aureua (unclear source) Start vancomycin Follow up cultures Repeat BCx pending. PLAN: Plan The patient is a 47 y/o M w/ PMHx: HTN, MRDD component with associated Seizure disorder, Marfan syndrome w/ known dilated aortic root 5.0 cm, Anxiety who presents to the [facility] ED on 12/31/22 with history of notable decreased oral intake including both food and liquids with elevated temperatures at home reported as febrile per family although unable to give exact temperature with no emesis but potentially nausea and no significant pain however patient's urine has smelled significantly foul prompting family to bring him in for evaluation. Chronic conditoins: * Normocytic anemia, acute on previously chronically noted 2019: Admission hemoglobin 12.5, prior to this 04/21/2020 214.3 however in 2019 patient did have a baseline 10-12 however this is suspected to be likely more acute phase, guaiac requested, iron panel, ferritin. * Known dilated aortic root: Most recent CT chest with contrast noted 06/03/2020 with aneurysmal dilatation aortic root measuring 5 cm in transverse dimension with normal caliber of the descending aorta and aortic arch, encourage continued outpatient follow-up and evaluation. * Underlying MRDD with limited interactive ability baseline, Seizure disorder: We will continue patient home phenobarbital as well as Depakote level. Level requested given encephalopathy on chronic decreased cognitive ability. If level is low given decreased intake ability or unable to take his oral AEDs will transition to IV with load if level notably decreased. * Anxiety: We will continue twice daily clonazepam regimen. * Hypothyroidism: We will continue patient levothyroxine regimen. * Hypertension: We will continue patient home atenolol regimen with hold parameters although patient runs routinely systolic in the 90s from review of records. * Seizure disorder: continue phenobarbital DVT prophylaxis: Lovenox. CODE status: DNR-CCA, no intubation status. Charges/Coding Visit Charges Inpatient E&M: 72070 Subs Hosp L2
[2023-01-02 08:17] VITALS: O2SAT 93
[2023-01-02] MEDS: Potassium Chloride Oral Tablet 20 MEQ 40 MEQ PO (08:47)
[2023-01-02] MEDS: Enoxaparin 40 MG/0.4 ML Syringe SC (08:49)
[2023-01-02] MEDS: clonazePAM 0.5 MG Tablet PO ×2 (08:57→21:10)
[2023-01-02] MEDS: Phenobarbital 32.4 MG Tablet 64.8 MG PO (08:57)
[2023-01-02] MEDS: Menthol/Lanolin/Calamine/Znox 113 GM Tube 1 APPLIC TOPICAL ×4 (08:58→21:10)
[2023-01-02 09:00] VITALS: BP 90/56; PULSE 75; RESP 16; TEMP 36.8; O2SAT 94
[2023-01-02 15:00] VITALS: BP 98/60; PULSE 78; RESP 18; TEMP 37; O2SAT 96
--- NOTE | 2023-01-02 15:20 | PHA.PHARE_ITS ---
Consult Pharmacy has been consulted to manage selected antiobiotic: Vancomycin Type of Consult: Follow-up Suspected Infection: Bacteremia Prior Doses of Antibiotics Received/Current Regimen: current dose is vanc 1000mg IV q8h Labs: Sodium 140 mmol/L (136-145) 01/02/23 04:59 Potassium 3.3 mmol/L (3.5-5.1) L 01/02/23 04:59 Chloride 114 mmol/L (98-107) H 01/02/23 04:59 Carbon Dioxide 23.0 mmol/L (21.0-32.0) 01/02/23 04:59 Anion Gap 3 (5-15) L 01/02/23 04:59 BUN 6 mg/dL (7-18) L 01/02/23 04:59 Creatinine 0.53 mg/dL (0.70-1.30) L 01/02/23 04:59 Est GFR (MDRD) Af Amer 216 mL/min (>60) 01/02/23 04:59 Est GFR (MDRD) Non-Af 178 mL/min (>60) 01/02/23 04:59 BUN/Creatinine Ratio 11.3 RATIO (10-20) 01/02/23 04:59 Glucose 97 mg/dL (74-106) 01/02/23 04:59 Vancomycin Trough 16.0 ug/mL (5.0-15.0) H 01/02/23 14:03 Microbiology: Microbiology 12/31/22 16:50 Blood Culture (Wb) - Right Forearm Blood Culture - Preliminary GPC Poss Enterococcus sp 12/31/22 16:25 Blood Culture (Wb) - Left Forearm Blood Culture - Preliminary GPC Poss Enterococcus sp 12/31/22 17:00 Urine, Catheterized Urine Culture - Preliminary Mixed Gram Positive Organisms 12/31/22 17:00 Nasal Secretion SARS-CoV-2 & FLU Antigen (Rapid) - Final Weight used for dosin.2 kg Estimated Creatinine Clearance: >100ml/min Goal Trough: 15-20 mcg/mL Pharmacy Plan for Drug Dosing: The vanc trough drawn at 14:03 today (approx 7.5 hours after the previous dose) was 16.0. This is within goal range so will keep same dose. Repeat another trough in 2 days per protocol except that will move up the trough to the data processing systems project planner dose instead that day. Pharmacy Service will continue to monitor and adjust dosing as required. Follow-Up Labs: Trough Vancomycin Labs to be done on [date and time ordered]: 01/04/23 06:30
[2023-01-02 20:58] VITALS: BP 122/71; PULSE 85; RESP 18; TEMP 37.6; O2SAT 94
[2023-01-02] MEDS: Atenolol 50 MG Tablet PO (21:09)
[2023-01-02] MEDS: Divalproex (ER) 500 MG Tablet 1500 MG PO (21:09)
[2023-01-03 02:23] VITALS: BP 117/64; PULSE 85; RESP 18; TEMP 37.5; O2SAT 94
[2023-01-03 06:25] LABS: Absolute Lymphocyte Count 1.98 X10^3/uL (0.83-4.51); Absolute Neutrophil Count 3.8 X10^3/uL (2.0-7.7); Basophil# 0.04 X10^3/uL; Basophil% 0.6 % (0-1); Eosinophil# 0.13 X10^3/uL; Eosinophils% 1.9 % (0-5); Hematocrit 29.7 % (40-54); Hemoglobin 9.8 g/dL (13.0-16.5); Lymphocyte # 1.98 X10^3/ul (0.83-4.51); Lymphocyte % 28.4 % (19-41); Mean Platelet Vol. 9.6 fl (6.2-12.0); Monocyte# 1.01 X10^3/uL; Monocyte% 14.5 % (0-10); NRBC Flagged by Analyzer 0 % (0-5); Neutrophil # 3.76 X10^3/uL (2.7-7.7); Platelet Count 313 K/mm3 (150-450); RBC Distribution Width SD 41.7 fl (35.1-43.9); Red Blood Count 3.16 M/mm3 (4.6-6.2)
[2023-01-03] MEDS: Levothyroxine 75 MCG Tablet PO (06:26)
[2023-01-03] MEDS: 0.9% Normal Saline 1,000 ML 150 ML IV ×3 (06:28→21:55)
[2023-01-03] MEDS: Vancomycin IV 1,000 MG/200 ML BAG 200 MG IV ×3 (06:29→22:30)
[2023-01-03 06:33] VITALS: BMI 21.7
[2023-01-03 06:33] LABS: Anion Gap 4 (5-15); BUN 3 mg/dL (7-18); BUN/Creat Ratio 5.7 RATIO (10-20); Calcium,Total 7.7 mg/dL (8.5-10.1); Chloride 113 mmol/L (98-107); Creatinine, Serum 0.53 mg/dL (0.70-1.30); EST Glomerular Filtration Rate 179 mL/min (>60); Est Glom Filt Rate - Afr Amer 216 mL/min (>60); Estimated Creatinine Clearance 192.63 ml/min; Glucose 94 mg/dL (74-106); Potassium 3.2 mmol/L (3.5-5.1); Sodium Level 140 mmol/L (136-145)
[2023-01-03 07:31] VITALS: O2SAT 94
--- NOTE | 2023-01-03 07:31 | PN.HOSP_ITS ---
Reason for Visit Reason for Visit: Diagnoses Metabolic encephalopathy (12/31/22) Urinary tract infection, site not specified (12/31/22) Bacteremia (12/31/22) Subjective Subjective Remains non-verbal. Objective Data Objective Data Vital Signs: Vital Signs Temp Pulse Resp BP Pulse Ox O2 Del Method 37.5 C H 85 18 117/64 94 Room Air 01/03/23 02:23 01/03/23 02:23 01/03/23 02:23 01/03/23 02:23 01/03/23 02:23 01/03/23 02:56 Oxygen Delivery Method Room Air Weight: 76.6 kg Body Mass Index (BMI) 21.7 Intake & Output: Intake and Output for Last 24 Hours 01/01/23 01/02/23 01/03/23 23:59 23:59 23:59 Intake Total 3290.83 / 3290.83 5027.5 / 5027.5 1332.5 / 1332.5 Output Total 1600 / 2500 7200 / 7200 2550 / 2550 Balance 1690.83 / 790.83 -2172.5 / -2172.5 -1217.5 / -1217.5 Lab / Micro Data Result Diagrams: 01/03/23 05:42 01/03/23 05:42 Labs: Laboratory Results - last 24 hr 01/02/23 14:03: Vancomycin Trough 16.0 H 01/03/23 05:42: WBC 7.0, RBC 3.16 L, Hgb 9.8 L, Hct 29.7 L, MCV 94.0, MCH 31.0, MCHC 33.0, RDW Std Deviation 41.7, RDW Coeff of Bel 12.0, Plt Count 313, MPV 9.6, Immature Gran % (Auto) 0.600, Neut % (Auto) 54.0, Lymph % (Auto) 28.4, [place] % (Auto) 14.5 H, Eos % (Auto) 1.9, Baso % (Auto) 0.6, Absolute Neuts (auto) 3.8, Absolute Lymphs (auto) 1.98, Nucleated RBC % 0 01/03/23 05:42: Sodium 140, Potassium 3.2 L, Chloride 113 H, Carbon Dioxide 23.0, Anion Gap 4 L, BUN 3 L, Creatinine 0.53 L, Estim Creat Clear Calc 192.63, Est GFR (MDRD) Af Amer 216, Est GFR (MDRD) Non-Af 179, BUN/Creatinine Ratio 5.7 L, Glucose 94, Calcium 7.7 L Micro: Microbiology 12/31/22 17:00 Urine, Catheterized Urine Culture - Final Staphylococcus epidermidis Staphylococcus lentus 12/31/22 16:25 Blood Culture (Wb) - Left Forearm Bacteria Detection (PCR) - Final 12/31/22 16:25 Blood Culture (Wb) - Left Forearm Blood Culture - Preliminary Aerococcus viridans. 12/31/22 16:50 Blood Culture (Wb) - Right Forearm Blood Culture - Preliminary Alpha hemolytic organism 01/03/23 02:35 Stool Stool Occult Blood (TOMMY) - Final 12/31/22 17:00 Nasal Secretion SARS-CoV-2 & FLU Antigen (Rapid) - Final Physical Exam Const Constitutional Narrative: non-verbal. establishes eye-contact. Watching cartoons and laughs at them while I'm in the room. Resp normal respiratory effort, no retractions, no use of accessory muscles and clear to auscultation bilaterally Cardio regular rate, regular rhythm, S1 normal heart sound and S2 normal heart sound GI normal to inspection, nondistended, normoactive bowel sounds, soft to palpation, non-tender and non-distended Extremity General Extremity: edema Assessment & Plan Assessment/Plan (1) Metabolic encephalopathy: PLAN: Unknown baseline. Pt non-verbal for me and nurse. It appears to be selective as he was speaking some yesterday. Prior hospitalization, pt was also non-verbal Acute Metabolic Encephalopathy secondary dehydration. Avoid potentiating medications (2) Complicated UTI (urinary tract infection): PLAN: Ruled out. Only 0-5 WBCs on UA. DC abx and observe. UCx positive for Staph epidermidis and lentus. Doubt true infection. (3) Bacteremia: PLAN: 2 of 2 for aerococcus viridans, sensitivities pending Start vancomycin Follow up cultures Repeat BCx pending. (4) Hypokalemia: PLAN: Replace Monitor (5) Lens disorder: PLAN: I cannot tell if he has bilateral lens dislocation. Follow up with ophthalmology as outpt. PLAN: Plan The patient is a 47 y/o M w/ PMHx: HTN, MRDD component with associated Seizure disorder, Marfan syndrome w/ known dilated aortic root 5.0 cm, Anxiety who presents to the [facility] ED on 12/31/22 with history of notable decreased oral intake including both food and liquids with elevated temperatures at home reported as febrile per family although unable to give exact temperature with no emesis but potentially nausea and no significant pain however patient's urine has smelled significantly foul prompting family to bring him in for evaluation. Chronic conditoins: * Normocytic anemia, acute on previously chronically noted 2019: Admission hemoglobin 12.5, prior to this 04/21/2020 214.3 however in 2019 patient did have a baseline 10-12 however this is suspected to be likely more acute phase, gua iac requested, iron panel, ferritin. * Known dilated aortic root: Most recent CT chest with contrast noted 06/03/2020 with aneurysmal dilatation aortic root measuring 5 cm in transverse dimension with normal caliber of the descending aorta and aortic arch, encourage continued outpatient follow-up and evaluation. * Underlying MRDD with limited interactive ability baseline, Seizure disorder: We will continue patient home phenobarbital as well as Depakote level. Level requested given encephalopathy on chronic decreased cognitive ability. If level is low given decreased intake ability or unable to take his oral AEDs will transition to IV with load if level notably decreased. * Anxiety: We will continue twice daily clonazepam regimen. * Hypothyroidism: We will continue patient levothyroxine regimen. * Hypertension: We will continue patient home atenolol regimen with hold parameters although patient runs routinely systolic in the 90s from review of records. * Seizure disorder: continue phenobarbital DVT prophylaxis: Lovenox. CODE status: DNR-CCA, no intubation status. Disposition: plan for Home with [facility] when medically stable. Charges/Coding Visit Charges Inpatient E&M: 39394 Subs Hosp L2
[2023-01-03 08:26] VITALS: BP 106/62; PULSE 77; RESP 18; TEMP 36.8; O2SAT 96
[2023-01-03] MEDS: Potassium Chloride Oral Tablet 20 MEQ 40 MEQ PO ×2 (10:01→17:21)
[2023-01-03] MEDS: Atenolol 50 MG Tablet PO ×2 (10:02→22:25)
[2023-01-03] MEDS: Enoxaparin 40 MG/0.4 ML Syringe SC (10:02)
[2023-01-03] MEDS: Menthol/Lanolin/Calamine/Znox 113 GM Tube 1 APPLIC TOPICAL ×4 (10:02→22:26)
[2023-01-03] MEDS: clonazePAM 0.5 MG Tablet PO ×2 (10:02→22:25)
[2023-01-03] MEDS: Phenobarbital 32.4 MG Tablet 64.8 MG PO (10:02)
[2023-01-03 15:00] VITALS: BP 98/62; PULSE 70; RESP 16; TEMP 36.7; O2SAT 96
[2023-01-03 22:21] VITALS: BP 106/62; PULSE 78; RESP 18; TEMP 36.3; O2SAT 94
[2023-01-03] MEDS: Divalproex (ER) 500 MG Tablet 1500 MG PO (22:25)
[2023-01-04 04:03] VITALS: BP 138/82; PULSE 64; RESP 18; TEMP 36.6; O2SAT 95
[2023-01-04] MEDS: 0.9% Normal Saline 1,000 ML 150 ML IV (04:14)
[2023-01-04] MEDS: Levothyroxine 75 MCG Tablet PO (05:42)
[2023-01-04 06:00] VITALS: BMI 21.7
[2023-01-04] MEDS: Vancomycin IV 1,000 MG/200 ML BAG 200 MG IV ×3 (06:40→22:00)
--- NOTE | 2023-01-04 06:44 | PCM.PN.HOSP ---
Reason for Visit Reason for Visit: Diagnoses Hypokalemia (12/31/22) Metabolic encephalopathy (12/31/22) Unspecified disorder of lens (12/31/22) Urinary tract infection, site not specified (12/31/22) Bacteremia (12/31/22) Subjective Subjective Resting comfortably in bed, did not answer questions verbally but did wake up when prompted Objective Data Objective Data Vital Signs: Vital Signs Temp Pulse Resp BP Pulse Ox O2 Del Method 97.8 F 64 18 138/82 H 95 Room Air 01/04/23 04:03 01/04/23 04:03 01/04/23 04:03 01/04/23 04:03 01/04/23 04:03 01/04/23 04:03 Oxygen Delivery Method Room Air Weight: 76.6 kg Body Mass Index (BMI) 21.7 Intake & Output: Intake and Output for Last 24 Hours 01/02/23 01/03/23 01/04/23 23:59 23:59 23:59 Intake Total 5027.5 / 5027.5 3932.5 / 3932.5 1447.5 / 1447.5 Output Total 7200 / 7200 4075 / 4075 2500 / 2500 Balance -2172.5 / -2172.5 -142.5 / -142.5 -1052.5 / -1052.5 Lab / Micro Data Result Diagrams: 01/04/23 06:36 01/04/23 06:36 Micro: Microbiology 01/01/23 13:55 Blood Culture (Wb) - Anticubital Left Blood Culture - Preliminary No growth in 48 hours. 01/01/23 13:50 Blood Culture (Wb) - Anticubital Right Blood Culture - Preliminary No growth in 48 hours. 12/31/22 16:50 Blood Culture (Wb) - Right Forearm Blood Culture - Preliminary Alpha hemolytic organism 12/31/22 16:25 Blood Culture (Wb) - Left Forearm Bacteria Detection (PCR) - Final 12/31/22 16:25 Blood Culture (Wb) - Left Forearm Blood Culture - Final Aerococcus viridans. 12/31/22 17:00 Urine, Catheterized Urine Culture - Final Staphylococcus epidermidis Staphylococcus lentus 01/03/23 02:35 Stool Stool Occult Blood (TOMMY) - Final 12/31/22 17:00 Nasal Secretion SARS-CoV-2 & FLU Antigen (Rapid) - Final Physical Exam Narrative General: Resting comfortably, wakes up without significant difficulty HEENT: Normocephalic, slightly dry mucous membranes Eyes: Extraocular movements grossly intact Neck: Supple Respiratory: Clear to auscultation bilaterally, normal respiratory effort Cardiovascular: Regular rate and rhythm GI: Soft, nontender, nondistended Extremities: No edema Musculoskeletal: Moving all extremities Neuro: Patient did not participate in neuro exam Skin: No rashes appreciated Psych: Woke up with prompting, nonverbal Assessment & Plan Assessment/Plan (1) Bacteremia: PLAN: Plan #Aerococcus viridans bacteremia -Blood cultures on admission with Aerococcus viridans -Reportedly had elevated temperatures and was febrile prior to coming to the hospital -Is on vancomycin -Repeat cultures no growth to date but not finalized -Infectious disease consulted for assistance with antibiotic selection and duration #MRDD/seizure disorder/Marfan syndrome with known dilated aortic root at 5 cm -Seems to be more interactive depending on the person he is interacting with -Did have an elevated ammonia however at 54, will start lactulose -Phenobarb level 10, within normal limits -Depakote level this p.m. prior to Depakote dose #Hypothyroidism -TSH and free T4 within normal limits -Continue home Synthroid #DVT ppx: Lovenox subcu Carri Mina MD Time spent in the patient's overall evaluation,decision-making process, review of diagnostic data, adjustment of management, discussion with other providers, nursing nursing and ancillary staff involved in patient's care documentation, 30 minutes Charges/Coding Visit Charges Inpatient E&M: 16701 Subs Hosp L2
[2023-01-04 06:46] LABS: Absolute Lymphocyte Count 1.63 X10^3/uL (0.83-4.51); Absolute Neutrophil Count 3.2 X10^3/uL (2.0-7.7); Basophil# 0.04 X10^3/uL; Basophil% 0.7 % (0-1); Eosinophil# 0.17 X10^3/uL; Eosinophils% 2.9 % (0-5); Hematocrit 32.3 % (40-54); Hemoglobin 10.6 g/dL (13.0-16.5); Lymphocyte # 1.63 X10^3/ul (0.83-4.51); Lymphocyte % 28.2 % (19-41); Mean Corp Hgb Conc 32.8 g/dL (32-36); Mean Corpuscular Hgb 31.2 pg (27.0-32.0); Mean Platelet Vol. 9.1 fl (6.2-12.0); Monocyte# 0.69 X10^3/uL; Monocyte% 11.9 % (0-10); NRBC Flagged by Analyzer 0 % (0-5); Neutrophil # 3.22 X10^3/uL (2.7-7.7); Neutrophil % 55.8 % (47-70); Platelet Count 317 K/mm3 (150-450); RBC Distribution Width CV 12.1 % (11.6-14.6); RBC Distribution Width SD 42.5 fl (35.1-43.9); White Blood Count 5.8 K/mm3 (4.4-11.0)
[2023-01-04 06:56] LABS: Anion Gap 4 (5-15); BUN 2 mg/dL (7-18); BUN/Creat Ratio 4.1 RATIO (10-20); Calcium,Total 8.1 mg/dL (8.5-10.1); Chloride 113 mmol/L (98-107); Creatinine, Serum 0.49 mg/dL (0.70-1.30); EST Glomerular Filtration Rate 196 mL/min (>60); Est Glom Filt Rate - Afr Amer 238 mL/min (>60); Estimated Creatinine Clearance 204.09 ml/min; Glucose 98 mg/dL (74-106); Potassium 3.3 mmol/L (3.5-5.1); Sodium Level 142 mmol/L (136-145)
[2023-01-04 06:57] LABS: Vancomycin, Trough Level 17.5 ug/mL (5.0-15.0)
--- NOTE | 2023-01-04 07:21 | PCM.RX.CS ---
Consult Pharmacy has been consulted to manage selected antiobiotic: Vancomycin Type of Consult: Follow-up Suspected Infection: Bacteremia Labs: Sodium 142 mmol/L (136-145) 01/04/23 06:36 Potassium 3.3 mmol/L (3.5-5.1) L 01/04/23 06:36 Chloride 113 mmol/L (98-107) H 01/04/23 06:36 Carbon Dioxide 25.0 mmol/L (21.0-32.0) 01/04/23 06:36 Anion Gap 4 (5-15) L 01/04/23 06:36 BUN 2 mg/dL (7-18) L 01/04/23 06:36 Creatinine 0.49 mg/dL (0.70-1.30) L 01/04/23 06:36 Est GFR (MDRD) Af Amer 238 mL/min (>60) 01/04/23 06:36 Est GFR (MDRD) Non-Af 196 mL/min (>60) 01/04/23 06:36 BUN/Creatinine Ratio 4.1 RATIO (10-20) L 01/04/23 06:36 Glucose 98 mg/dL (74-106) 01/04/23 06:36 Vancomycin Trough 17.5 ug/mL (5.0-15.0) H 01/04/23 06:36 Microbiology: Microbiology 01/01/23 13:55 Blood Culture (Wb) - Anticubital Left Blood Culture - Preliminary No growth in 48 hours. 01/01/23 13:50 Blood Culture (Wb) - Anticubital Right Blood Culture - Preliminary No growth in 48 hours. 12/31/22 16:50 Blood Culture (Wb) - Right Forearm Blood Culture - Preliminary Alpha hemolytic organism 12/31/22 16:25 Blood Culture (Wb) - Left Forearm Bacteria Detection (PCR) - Final 12/31/22 16:25 Blood Culture (Wb) - Left Forearm Blood Culture - Final Aerococcus viridans. 12/31/22 17:00 Urine, Catheterized Urine Culture - Final Staphylococcus epidermidis Staphylococcus lentus 01/03/23 02:35 Stool Stool Occult Blood (TOMMY) - Final 12/31/22 17:00 Nasal Secretion SARS-CoV-2 & FLU Antigen (Rapid) - Final Goal Trough: 15-20 mcg/mL Pharmacy Plan for Drug Dosing: VANCOMYCIN LEVEL RECEIVED Current Vancomycin Dose: 1000mg q8h (,,) Number of Doses Received: x7 of current dose Vancomycin Level: 17.5 Hours Since Last Dose: 8 Renal Function: SrCr 0.49 Renal Function Trend: SrCr stable Lab/Micro: Vancomycin Plan/Comments: resulted trough of 17.5 is within the ordered goal trough range of 15-20. recommend continuing current dose of 1000mg q8h and checking a trough prior to the 4th dose Pending Level: 01/05/23 at 1430 Pharmacy Service will continue to monitor and adjust dosing as required. Follow-Up Labs: Trough Vancomycin - 01/05/23 at 1430
[2023-01-04 07:26] LABS: AST(SGOT) 19 U/L (15-37); Alanine Aminotransfer ALT/SGPT 19 U/L (16-61); Albumin, Serum 1.8 g/dL (3.2-5.0); Alkaline Phosphatase 45 U/L (45-117); Bilirubin, Direct 0.06 mg/dL (0.00-0.30); Globulin 4.1 g/dL (2.2-4.2); Protein, Total 5.9 g/dL (6.4-8.2); T4 Free Direct 1.16 ng/dL (0.76-1.46); Thyroid Stim Hormone (TSH) 2.38 uIU/mL (0.358-3.74)
[2023-01-04] MEDS: Enoxaparin 40 MG/0.4 ML Syringe SC (08:55)
[2023-01-04] MEDS: Lactulose 20 GM/30 ML UDC PO ×3 (08:56→22:02)
[2023-01-04] MEDS: Phenobarbital 32.4 MG Tablet 64.8 MG PO (08:56)
[2023-01-04] MEDS: Potassium Chloride Oral Soln 20 MEQ/15 ML UDC 40 MEQ PO (08:56)
[2023-01-04] MEDS: clonazePAM 0.5 MG Tablet PO ×2 (08:56→22:03)
[2023-01-04] MEDS: Menthol/Lanolin/Calamine/Znox 113 GM Tube 1 APPLIC TOPICAL ×4 (08:57→22:03)
[2023-01-04] MEDS: Atenolol 50 MG Tablet PO ×2 (09:01→22:03)
[2023-01-04 09:23] VITALS: BP 107/71; PULSE 77; RESP 18; TEMP 36.8; O2SAT 97
--- NOTE | 2023-01-04 10:29 | CASEMGMT ---
Updated [facility] via [facility] that plan is for pt to dc tomorrow.
[2023-01-04 10:40] VITALS: O2SAT 94
[2023-01-04] MEDS: Lactated Ringers 1,000 ML 999 ML IV (12:53)
--- NOTE | 2023-01-04 14:02 | CON.PCM.ID_ITS ---
Assessment & Plan Assessment/Plan (1) Bacteremia: PLAN: Aerococcus viridans bacteremia and CoNS uti. On vanc, much improved, fever resolved, wbc back to normal. Cont vanc, plan for discharge will be one week po doxy 100mg bid. Will follow, thank you (2) Complicated UTI (urinary tract infection): HPI Consult Data Date of Consult: 01/04/23 HPI Narrative Reason for Consultation: bacteremia HPI Narrative: ROSALINE COTTO, is a 47 M with MRDD, Marfan syndrom, presented 12/31 with several days fever, chills, foul urine, not feeling well. No cough or SOB. No white at home. Came to ED, admitted with ceftriaxone. Abx changed to vanc now, overall much improved per his mother at bedside. Full ROS unobtainable due to mental status PFSH Medical History Anxiety Dilatation of aortic root due to Marfan syndrome Essential hypertension Hypothyroidism Lens disorder Marfan syndrome Seizure disorder Home Medications atenolol 50 mg tablet 50 mg PO BID BP 01/15/18 [History Last Taken Unknown] clonazepam 0.5 mg tablet 0.5 mg PO BID ANXIETY 03/22/19 [History Last Taken Unknown] levothyroxine 75 mcg tablet 75 mcg PO DAILY THYROID 03/22/19 [History Last Taken Unknown] Divalproex Sodium [Divalproex Sodium Er] 1,500 mg PO QHS SEIZURES 04/24/20 [History Last Taken Unknown] multivitamin with minerals 1 tab PO DAILY SUPPLEMENT 04/24/20 [History Last Taken Unknown] phenobarbital 64.8 mg tablet 64.8 mg PO DAILY SEIZURES 04/24/20 [History Last Taken Unknown] potassium chloride 20 mEq tablet,extended release(part/cryst) 20 meq PO DAILY Check with primary doctor 12/31/22 [History Last Taken Unknown] Allergy/AdvReac Type Severity Reaction Status Date / Time No Known Allergies Allergy Verified 12/31/22 16:13 Family History (Updated 12/31/22 @ 19:[address] Ivonne Tavares MD) Mother Hypertension Marfans syndrome Uncle Marfans syndrome Ruptured, aorta Uncle Marfans syndrome Ruptured, aorta Father CAD (coronary artery disease) Heart disease Hypertension Surgical History dislocated lenses, removed hamstring lengthening bilateral Social History (Updated 12/31/22 @ 19:[address] Ivonne Tavares MD) household members: family Smoking Status: Never smoker alcohol intake: never substance use type: does not use caffeine: Yes Type: carbonated beverages Number of servings: 1 and coffee Number of servings: 2 Physical Exam Const no apparent distress General Appearance: cooperative HEENT head/scalp atraumatic Eyes PERRL and EOMs intact bilaterally Neck supple and No nodes Resp normal air movement and clear to auscultation bilaterally Cardio regular rate and regular rhythm GI soft to palpation, non-tender and non-distended Extremity General Extremity: Negative for edema Skin no rashes or lesions noted Neuro CN's II-XII intact bilaterally Lab / Micro Data Attestation: I reviewed the patient's lab results. Result Diagrams: 01/04/23 06:36 01/04/23 06:36 Labs: Laboratory Results - last 24 hr 01/04/23 06:36: Vancomycin Trough 17.5 H 01/04/23 06:36: WBC 5.8, RBC 3.40 L, Hgb 10.6 L, Hct 32.3 L, MCV 95.0 H, MCH 31.2, MCHC 32.8, RDW Std Deviation 42.5, RDW Coeff of Bel 12.1, Plt Count 317, MPV 9.1, Immature Gran % (Auto) 0.500, Neut % (Auto) 55.8, Lymph % (Auto) 28.2, [place] % (Auto) 11.9 H, Eos % (Auto) 2.9, Baso % (Auto) 0.7, Absolute Neuts (auto) 3.2, Absolute Lymphs (auto) 1.63, Nucleated RBC % 0 01/04/23 06:36: Sodium 142, Potassium 3.3 L, Chloride 113 H, Carbon Dioxide 25.0, Anion Gap 4 L, BUN 2 L, Creatinine 0.49 L, Estim Creat Clear Calc 204.09, Est GFR (MDRD) Af Amer 238, Est GFR (MDRD) Non-Af 196, BUN/Creatinine Ratio 4.1 L, Glucose 98, Calcium 8.1 L 01/04/23 06:36: Total Bilirubin 0.10 L, Direct Bilirubin 0.06, AST 19, ALT 19, Alkaline Phosphatase 45, Total Protein 5.9 L, Albumin 1.8 L, Globulin 4.1, TSH 2.38, Free T4 1.16 01/04/23 06:36: Phenobarbital 10.7 01/04/23 07:00: Ammonia 54.0 H Micro: Microbiology 12/31/22 16:50 Blood Culture (Wb) - Right Forearm Blood Culture - Final Alpha hemolytic organism
[2023-01-04 14:30] VITALS: BP 110/75; PULSE 79; RESP 18; TEMP 37; O2SAT 98
[2023-01-04 20:43] VITALS: BP 101/69; PULSE 86; RESP 20; TEMP 37.4; O2SAT 93
[2023-01-04 21:57] LABS: Valproic Acid (Depakene) Level 75 ug/mL (50-100)
[2023-01-04] MEDS: Divalproex (ER) 500 MG Tablet 1500 MG PO (22:03)
[2023-01-05 02:53] VITALS: BP 110/64; PULSE 77; RESP 16; TEMP 36.9; O2SAT 98
[2023-01-05 03:10] VITALS: BMI 21.7
[2023-01-05] MEDS: Lactulose 20 GM/30 ML UDC PO ×3 (06:39→22:52)
[2023-01-05] MEDS: Vancomycin IV 1,000 MG/200 ML BAG 200 MG IV ×3 (06:39→22:55)
[2023-01-05] MEDS: Levothyroxine 75 MCG Tablet PO (06:39)
[2023-01-05 06:41] LABS: Absolute Lymphocyte Count 1.95 X10^3/uL (0.83-4.51); Absolute Neutrophil Count 4.1 X10^3/uL (2.0-7.7); Basophil# 0.02 X10^3/uL; Basophil% 0.3 % (0-1); Eosinophil# 0.15 X10^3/uL; Eosinophils% 2.1 % (0-5); Hematocrit 31.6 % (40-54); Hemoglobin 10.6 g/dL (13.0-16.5); Lymphocyte # 1.95 X10^3/ul (0.83-4.51); Lymphocyte % 26.8 % (19-41); Mean Corp Hgb Conc 33.5 g/dL (32-36); Mean Corpuscular Hgb 31.7 pg (27.0-32.0); Mean Corpuscular Volume 94.6 fL (80-94); Mean Platelet Vol. 8.9 fl (6.2-12.0); Monocyte# 1.06 X10^3/uL; Monocyte% 14.6 % (0-10); NRBC Flagged by Analyzer 0 % (0-5); Neutrophil # 4.05 X10^3/uL (2.7-7.7); Neutrophil % 55.5 % (47-70); Platelet Count 324 K/mm3 (150-450); RBC Distribution Width CV 12.3 % (11.6-14.6); RBC Distribution Width SD 42.5 fl (35.1-43.9); Red Blood Count 3.34 M/mm3 (4.6-6.2); White Blood Count 7.3 K/mm3 (4.4-11.0)
[2023-01-05 07:16] LABS: Anion Gap 3 (5-15); BUN 7 mg/dL (7-18); Calcium,Total 7.9 mg/dL (8.5-10.1); Chloride 111 mmol/L (98-107); Creatinine, Serum 0.88 mg/dL (0.70-1.30); EST Glomerular Filtration Rate 99 mL/min (>60); Est Glom Filt Rate - Afr Amer 120 mL/min (>60); Estimated Creatinine Clearance 113.79 ml/min; Glucose 106 mg/dL (74-106); Potassium 3.5 mmol/L (3.5-5.1); Sodium Level 139 mmol/L (136-145)
[2023-01-05] MEDS: Menthol/Lanolin/Calamine/Znox 113 GM Tube 1 APPLIC TOPICAL ×4 (08:49→22:51)
[2023-01-05] MEDS: 0.9% Normal Saline 1,000 ML 999 ML IV (08:49)
[2023-01-05 08:56] VITALS: BP 100/58; PULSE 76; RESP 18; TEMP 36.6; O2SAT 96
--- NOTE | 2023-01-05 09:55 | PCM.PN.HOSP ---
Reason for Visit Reason for Visit: Diagnoses Hypokalemia (12/31/22) Metabolic encephalopathy (12/31/22) Unspecified disorder of lens (12/31/22) Urinary tract infection, site not specified (12/31/22) Bacteremia (12/31/22) Subjective Subjective Tired again today without improvement in pneumonia but did have BM this morning. Spoke with mother regarding dispo and his current functional status. He will be ready for DC tomorrow if remains clinically stable, will verify ammonia has not continued to increase in creatinine improving and whether he will go home or be placed and mother will think about that today Objective Data Objective Data Vital Signs: Vital Signs Temp Pulse Resp BP Pulse Ox O2 Del Method 97.8 F 76 18 100/58 L 96 Room Air 01/05/23 08:56 01/05/23 08:56 01/05/23 08:56 01/05/23 08:56 01/05/23 08:56 01/05/23 08:56 Oxygen Delivery Method Room Air Weight: 76.7 kg Body Mass Index (BMI) 21.7 Intake & Output: Intake and Output for Last 24 Hours 01/03/23 01/04/23 01/05/23 23:59 23:59 23:59 Intake Total 3932.5 / 3932.5 3250.0 / 3250.0 200 / 200 Output Total 4075 / 4075 3800 / 3800 1375 / 1375 Balance -142.5 / -142.5 -550.0 / -550.0 -1175 / -1175 Lab / Micro Data Result Diagrams: 01/05/23 06:34 01/05/23 06:34 Labs: Laboratory Results - last 24 hr 01/04/23 21:00: Valproic Acid 75 01/05/23 06:34: WBC 7.3, RBC 3.34 L, Hgb 10.6 L, Hct 31.6 L, MCV 94.6 H, MCH 31.7, MCHC 33.5, RDW Std Deviation 42.5, RDW Coeff of Bel 12.3, Plt Count 324, MPV 8.9, Immature Gran % (Auto) 0.700, Neut % (Auto) 55.5, Lymph % (Auto) 26.8, Stearns % (Auto) 14.6 H, Eos % (Auto) 2.1, Baso % (Auto) 0.3, Absolute Neuts (auto) 4.1, Absolute Lymphs (auto) 1.95, Nucleated RBC % 0 01/05/23 06:34: Sodium 139, Potassium 3.5, Chloride 111 H, Carbon Dioxide 25.0, Anion Gap 3 L, BUN 7, Creatinine 0.88, Estim Creat Clear Calc 113.79, Est GFR (MDRD) Af Amer 120, Est GFR (MDRD) Non-Af 99, BUN/Creatinine Ratio 8.0 L, Glucose 106, Calcium 7.9 L 01/05/23 06:34: Ammonia 60.0 H Micro: Microbiology 12/31/22 16:50 Blood Culture (Wb) - Right Forearm Blood Culture - Final Alpha hemolytic organism 01/01/23 13:55 Blood Culture (Wb) - Anticubital Left Blood Culture - Preliminary No growth in 48 hours. 01/01/23 13:50 Blood Culture (Wb) - Anticubital Right Blood Culture - Preliminary No growth in 48 hours. 12/31/22 16:25 Blood Culture (Wb) - Left Forearm Bacteria Detection (PCR) - Final 12/31/22 16:25 Blood Culture (Wb) - Left Forearm Blood Culture - Final Aerococcus viridans. 12/31/22 17:00 Urine, Catheterized Urine Culture - Final Staphylococcus epidermidis Staphylococcus lentus 01/03/23 02:35 Stool Stool Occult Blood (TOMMY) - Final 12/31/22 17:00 Nasal Secretion SARS-CoV-2 & FLU Antigen (Rapid) - Final Physical Exam Narrative General: Resting comfortably, wakes up without significant difficulty HEENT: Normocephalic Eyes: Extraocular movements grossly intact Neck: Supple Respiratory: Clear to auscultation bilaterally, normal respiratory effort Cardiovascular: Regular rate and rhythm GI: Soft, nontender, nondistended Extremities: No edema Musculoskeletal: Moving all extremities Neuro: Patient did not participate in neuro exam Skin: No rashes appreciated Psych: Woke up with prompting, nonverbal Assessment & Plan Assessment/Plan (1) Bacteremia: PLAN: Plan #Aerococcus viridans bacteremia -Blood cultures on admission with Aerococcus viridans -Reportedly had elevated temperatures and was febrile prior to coming to the hospital -Is on vancomycin -Repeat cultures no growth to date but not finalized -Infectious disease consulted for assistance with antibiotic selection and duration -01/05: On vancomycin, doing well, upon DC will be switched to doxycycline #MRDD/seizure disorder/Marfan syndrome with known dilated aortic root at 5 cm/hyperammonemia -Seems to be more interactive depending on the person he is interacting with -Did have an elevated ammonia however at 54, will start lactulose -Phenobarb level 10, within normal limits -Depakote level this p.m. prior to Depakote dose -01/05: Pneumonia slightly increased today, did start having bowel movements however, continue lactulose. Likely will need placement, mother considering this after her visit with him today #Hypothyroidism -TSH and free T4 within normal limits -Continue home Synthroid #DVT ppx: Lovenox subcu Carri Mina MD Time spent in the patient's overall evaluation,decision-making process, review of diagnostic data, adjustment of management, discussion with other providers, nursing nursing and ancillary staff involved in patient's care documentation, 30 minutes Charges/Coding Visit Charges Inpatient E&M: 46035 Subs Hosp L2
--- NOTE | 2023-01-05 09:57 | PCM.PN.ID ---
Physical Exam Narrative No fever, no events overnight Const alert and no apparent distress Resp normal air movement and clear to auscultation bilaterally Cardio regular rate and regular rhythm GI soft to palpation, non-tender and non-distended Skin no rashes or lesions noted ID ID: Route of nutrition/ use of supplements: [] Nutritional Intake: [] IV Site: [] Cleaning Catheter: [] Assessment & Plan Assessment/Plan (1) Bacteremia: PLAN: Aerococcus viridans bacteremia and CoNS uti. On vanc, much improved, fever resolved, wbc back to normal. Cont vanc, ok for discharge with one week po doxy 100mg bid. Will follow (2) Complicated UTI (urinary tract infection):
[2023-01-05] MEDS: Enoxaparin 40 MG/0.4 ML Syringe SC (10:03)
[2023-01-05] MEDS: clonazePAM 0.5 MG Tablet PO ×2 (10:03→22:54)
[2023-01-05] MEDS: Phenobarbital 32.4 MG Tablet 64.8 MG PO (10:03)
[2023-01-05 10:08] VITALS: O2SAT 94
--- NOTE | 2023-01-05 10:33 | CASEMGMT ---
Social Work SW received VM from Nicole Taveras ([phone]), [facility] CM. Rivera requesting discharge information for pt upon d/c. SW called back, reported pt still in [facility] and will likely be discharged today. GERONIMO shared intent to fax d/c summary when pt leaves and asked Nicole to call back to confirm services pt receives from . Preferred fax number: [phone] TIERRA Moralez
[2023-01-05 12:11] LABS: Base Excess -1 mmol/L (-2 to +2); Bicarbonate 23.6 mmol/L (22-26); Blood Gas Specimen Type ART; FI02 21; PO2 84 mmHG (75-100); SITE R Radial; SO2 97 % (95-99); Total Carbon Dioxide 25 mmol/L; pCO2 35.4 mmHg (35-45); pH 7.43 (7.35-7.45)
--- NOTE | 2023-01-05 12:56 | CASEMGMT ---
Per hospitalist, pt mother coming in to see pt to see if she feels pt is at baseline or alternative option than HHC is needed. Updated [facility] in [facility].
[2023-01-05 14:23] VITALS: BP 112/67; PULSE 81; RESP 18; TEMP 36.8; O2SAT 97
--- NOTE | 2023-01-05 14:58 | CASEMGMT ---
MARGO CM into pt room, pt mother and another visitor present. Discussed how pt is working with therapy and she states she would still like to take pt home. Discussed how she can manage pt at home and she states just as she did before. Had a conversation that prior to this hospitalization, pt was able to ambulate on his own. Other visitor in room asks pt mother as well. Mother states she is concerned that he will go out of town for therapy. Made her aware that a list of SNF's in [place] could be provided to her. She hesitantly agreed. Discussed that this stay would be a short term plan of therapy with a goal of returning home. Updated SW.
[2023-01-05 15:07] LABS: Vancomycin, Trough Level 33.4 ug/mL (5.0-15.0)
--- NOTE | 2023-01-05 15:41 | CASEMGMT ---
Social Work? SW in to meet with pt's mother, Jacki, following update from that pt will need placement at nursing facility. SW introduced self and role at the hospital. Pt's mom agreeable to discussing discharge planning. A list of SNF providers including quality and resource use data consistent with the patient?s preferred geographic region, medical needs, and insurance network were provided from the [employer] Guide. Pt's mom reviewed list, asked questions and showed great hesitation for sending pt to a SNF SW sat with mother and reviewed thoughts and feelings. Jacki expressed concern for pt going to [facility] when he cannot advocate for self due to intellectual disabilities. Jacki also discussed concern with how long pt would need to be in a facility. SW discussed all concerns with Meseret and validated the feelings in relation to these concerns. Jacki shared feeling more at ease with the decision provided SW with the choices of [facility] and [facility] as second. GERONIMO updated d/c assistant manager airside operations, Tresa, on choices. Tresa to send referral to [facility]. PLAN: [facility], pending acceptance and precert? TIERRA Moralez
--- NOTE | 2023-01-05 15:52 | CASEMGMT ---
Discharge Planning Referral made to [facility] via [facility]. Tresa Hernandez
[2023-01-05 22:50] VITALS: BP 97/54; PULSE 79; RESP 18; TEMP 36.8; O2SAT 95
[2023-01-05] MEDS: Divalproex (ER) 500 MG Tablet 1500 MG PO (22:53)
[2023-01-05 23:06] LABS: Vancomycin, Trough Level 24.8 ug/mL (5.0-15.0)
--- NOTE | 2023-01-06 00:37 | PCM.RX.CS ---
Consult Pharmacy has been consulted to manage selected antiobiotic: Vancomycin Type of Consult: Follow-up Labs: Sodium 139 mmol/L (136-145) 01/05/23 06:34 Potassium 3.5 mmol/L (3.5-5.1) 01/05/23 06:34 Chloride 111 mmol/L (98-107) H 01/05/23 06:34 Carbon Dioxide 25.0 mmol/L (21.0-32.0) 01/05/23 06:34 Anion Gap 3 (5-15) L 01/05/23 06:34 BUN 7 mg/dL (7-18) 01/05/23 06:34 Creatinine 0.88 mg/dL (0.70-1.30) 01/05/23 06:34 Est GFR (MDRD) Af Amer 120 mL/min (>60) 01/05/23 06:34 Est GFR (MDRD) Non-Af 99 mL/min (>60) 01/05/23 06:34 BUN/Creatinine Ratio 8.0 RATIO (10-20) L 01/05/23 06:34 Glucose 106 mg/dL (74-106) 01/05/23 06:34 Vancomycin Trough 24.8 ug/mL (5.0-15.0) H 01/05/23 22:05 Microbiology: Microbiology 12/31/22 16:50 Blood Culture (Wb) - Right Forearm Blood Culture - Final Alpha hemolytic organism 01/01/23 13:55 Blood Culture (Wb) - Anticubital Left Blood Culture - Preliminary No growth in 48 hours. 01/01/23 13:50 Blood Culture (Wb) - Anticubital Right Blood Culture - Preliminary No growth in 48 hours. 12/31/22 16:25 Blood Culture (Wb) - Left Forearm Bacteria Detection (PCR) - Final 12/31/22 16:25 Blood Culture (Wb) - Left Forearm Blood Culture - Final Aerococcus viridans. 12/31/22 17:00 Urine, Catheterized Urine Culture - Final Staphylococcus epidermidis Staphylococcus lentus 01/03/23 02:35 Stool Stool Occult Blood (TOMMY) - Final 12/31/22 17:00 Nasal Secretion SARS-CoV-2 & FLU Antigen (Rapid) - Final Goal Trough: 15-20 mcg/mL Pharmacy Plan for Drug Dosing: Pharmacy Service will continue to monitor and adjust dosing as required. Follow-Up Labs: Trough Vancomycin Labs to be done on [date and time ordered]: TROUGH 24.8 @ [address]PEFD [address]. HOLD NEXT DOSE AND DRAW RANDOM LEVEL IN 18 HRS.
[2023-01-06 04:50] VITALS: BP 93/60; PULSE 70; RESP 18; TEMP 36.4; O2SAT 95
[2023-01-06] MEDS: Levothyroxine 75 MCG Tablet PO (05:42)
[2023-01-06] MEDS: Lactulose 20 GM/30 ML UDC PO ×2 (05:42→21:21)
[2023-01-06 06:00] VITALS: BMI 21.9
[2023-01-06 06:10] LABS: Absolute Lymphocyte Count 2.27 X10^3/uL (0.83-4.51); Absolute Neutrophil Count 4.2 X10^3/uL (2.0-7.7); Basophil# 0.03 X10^3/uL; Basophil% 0.4 % (0-1); Eosinophil# 0.12 X10^3/uL; Eosinophils% 1.5 % (0-5); Hematocrit 30.4 % (40-54); Hemoglobin 10.4 g/dL (13.0-16.5); Lymphocyte # 2.27 X10^3/ul (0.83-4.51); Lymphocyte % 29.1 % (19-41); Mean Corp Hgb Conc 34.2 g/dL (32-36); Mean Corpuscular Hgb 32.2 pg (27.0-32.0); Mean Corpuscular Volume 94.1 fL (80-94); Mean Platelet Vol. 8.9 fl (6.2-12.0); Monocyte# 1.13 X10^3/uL; Monocyte% 14.5 % (0-10); NRBC Flagged by Analyzer 0 % (0-5); Neutrophil # 4.18 X10^3/uL (2.7-7.7); Neutrophil % 53.7 % (47-70); Platelet Count 303 K/mm3 (150-450); RBC Distribution Width CV 12.4 % (11.6-14.6); RBC Distribution Width SD 42.7 fl (35.1-43.9); Red Blood Count 3.23 M/mm3 (4.6-6.2); White Blood Count 7.8 K/mm3 (4.4-11.0)
[2023-01-06 06:34] LABS: Anion Gap 2 (5-15); BUN 6 mg/dL (7-18); BUN/Creat Ratio 7.8 RATIO (10-20); Calcium,Total 8.3 mg/dL (8.5-10.1); Chloride 111 mmol/L (98-107); Creatinine, Serum 0.77 mg/dL (0.70-1.30); EST Glomerular Filtration Rate 115 mL/min (>60); Est Glom Filt Rate - Afr Amer 139 mL/min (>60); Estimated Creatinine Clearance 130.05 ml/min; Glucose 93 mg/dL (74-106); Potassium 3.3 mmol/L (3.5-5.1); Sodium Level 139 mmol/L (136-145)
[2023-01-06] MEDS: Potassium Chloride 10mEq/100mL 10 MEQ/100 ML IV.SOLN. 100 MEQ IV BOLUS ×2 (07:43→08:52)
[2023-01-06] MEDS: Lactated Ringers 1,000 ML 999 ML IV (07:44)
[2023-01-06] MEDS: Phenobarbital 32.4 MG Tablet 64.8 MG PO (10:25)
[2023-01-06] MEDS: clonazePAM 0.5 MG Tablet PO ×2 (10:25→21:48)
[2023-01-06] MEDS: Menthol/Lanolin/Calamine/Znox 113 GM Tube 1 APPLIC TOPICAL ×2 (10:25→21:22)
[2023-01-06] MEDS: Enoxaparin 40 MG/0.4 ML Syringe SC (10:25)
[2023-01-06 10:31] VITALS: BP 118/70; PULSE 69; RESP 18; TEMP 37; O2SAT 97
--- NOTE | 2023-01-06 12:27 | CASEMGMT ---
Addendum entered by Betzaida Thorne 01/06/23 13:57: GERONIMO received return call from Jcaki. Jacki informed family plans to take pt home today. GERONIMO confirmed Jacki is okay with [facility]. Jacki is agreeable to [facility]. GERONIMO updated MD Mina and plans to begin discharge. GERONIMO also updated [facility] to cancel referral/precert. GERONIMO also notified MARGO Moore that referral to [facility] agency that was previously established can be resumed. Addendum entered by Betzaida Thorne 01/06/23 13:12: GERONIMO called pt Mother, Jacki, to update on denial at [facility] and acceptance at [facility]. Jacki shared confused again on if SNF is best choice or if pt can come home. GERONIMO reviewed therapy notes with Jacki. Jacki remains adamant that home feels like the best place for pt. Jacki informed has grandson who can help with lifting pt if need be. GERONIMO encouraged Jacki to discuss with family and call GERONIMO back in about and hour. Jacki took phone number and will return call after speaking to family about the plan. GERONIMO updated MD Mina via backline or potential change in dispo plan. Addendum entered by Betzaida Thorne 01/06/23 13:12: [facility] able to accept and will begin precert. Original Note: Social work GERONIMO called Ruth to [facility] to inquire about referral. [facility] unable to accept pt. GERONIMO sent referral to pt second choice, [facility]. Will follow along for acceptance. PLAN: [facility], pending acceptance and precert TIERRA Moralez
--- NOTE | 2023-01-06 14:02 | DCINST_ITS ---
Discharge Instructions Diet Discharge Diet: No restrictions Activity Discharge Activity: Return to Normal Activity Follow Up Care Test Results: Test results from this visit will be discussed in further detail at your follow- up appointment, if applicable. Discharge Plan Admission Admit Date/Time: 12/31/22 19:02 Primary Reason for Your Visit: Confusion and poor oral intake Attending Provider: Carri Mina Primary Care Provider: Parvin Callahan Consulting Providers: Ivonne Tavares ; Mario Chaidez ; Albino Allen Instructions Patient Instructions: Lactulose Oral solution [Encephalopathy], ED Fall Prevention Additional Instructions / Restrictions: DISCHARGE INSTRUCTIONS PLEASE READ *Please take this with you to your next doctors appointment* -Your blood pressure has been on the low end of normal so your atenolol was held. Would recommend checking your blood pressure daily and if you have blood pressures with the systolic (top number) greater than 120 you can restart this medication. If you begin taking it again would still recommend checking your blood pressure daily and if the systolic (top number) is <100 or your heart rate is <60 would recommend holding that medication dose. -You were started on a medication, lactulose, due to an elevated ammonia which can cause increased tiredness. You will take 20 g 3 times daily initially but this dose can be adjusted at home to achieve goal of 3 bowel movements a day -For your infection you will need to take doxycycline 100 mg twice daily, a prescription for this and lactulose will be sent to preferred pharmacy on file -Given your blood pressure, ammonia, and tiredness would discuss your Klonopin, phenobarbital, and Depakote seizure regimen with your neurologist -Please call your primary care provider's office upon discharge to schedule a hospital follow up within 1 week. -For any concerning signs or symptoms please call 911 or proceed to the nearest emergency department Discharge Orders/Prescriptions Prescriptions: New lactulose 20 gram/30 mL Solution 20 g PO TID 30 Days Qty: 2700 0RF doxycycline hyclate 100 mg capsule 100 mg PO BID Qty: 14 0RF Continued levothyroxine 75 mcg tablet 75 mcg PO DAILY clonazepam 0.5 mg tablet 0.5 mg PO BID phenobarbital 64.8 mg tablet 64.8 mg PO DAILY Label Comments: TAKE 1 TABLET BY MOUTH EVERY DAY multivitamin with minerals 1 EACH tablet 1 tab PO DAILY Divalproex Sodium [Divalproex Sodium Er] 500 MG Tab.Er.24h 1,500 mg PO QHS potassium chloride 20 MEQ tablet,ER particles/crystals 20 meq PO DAILY Discontinued atenolol 50 MG tablet 50 mg PO BID Referrals / Follow Up: Parvin Callahan MD [Primary Care Provider] - Within 1 Week Disposition Disposition (needs filled in before D/C Order can be placed): Home Health Service
--- NOTE | 2023-01-06 14:07 | CASEMGMT ---
Addendum entered by Oscar Vargas 01/06/23 14:47: D/c instructions and summary sent to [facility] via [email or web address] at this time. Original Note: MARGO CRISTINA NOTE: Pt being discharged home. See GERONIMO Huston, notes. Call placed to Pam @ [facility] and she was made aware pt is discharging home today. She states SOC will be either tomorrow 01/07 or Monday 01/08. They will contact pt's mom to schedule appt. MARGO CRISTINA will send d/c instructions to [facility] via [facility] once they are available. Jennifer SMAUEL RN, CM
--- NOTE | 2023-01-06 14:25 | PCM.DC.SUM ---
Providers Date of Admission: 12/31/22 Date of Discharge: 01/06/23 Primary Care Physician: Dr. Parvin Callahan MD Consultations 01/04/23 06:57 Consult: Infectious Disease Routine Consulting Provider: Albino Allen Reason for Consult: aeorococcus bacteremia EMERGENT Consult: No MD Notified: Yes Date Notified: 01/04/23 Time Notified: 08:26 Method of Notification: Text Reason For Visit: ENCEPHALOPATHY, UTI Diagnosis Discharge Diagnosis (1) Bacteremia: Status: Acute Code(s): R78.81 - Bacteremia Plan #Aerococcus viridans bacteremia #MRDD#seizure disorder #Marfan syndrome with known dilated aortic root at 5 cm #hyperammonemia #Hypothyroidism #Urinary tract infection Medications at Discharge Home Medications clonazepam 0.5 mg tablet 0.5 mg PO BID ANXIETY 03/22/19 levothyroxine 75 mcg tablet 75 mcg PO DAILY THYROID 03/22/19 Divalproex Sodium [Divalproex Sodium Er] 1,500 mg PO QHS SEIZURES 04/24/20 multivitamin with minerals 1 tab PO DAILY SUPPLEMENT 04/24/20 phenobarbital 64.8 mg tablet 64.8 mg PO DAILY SEIZURES 04/24/20 potassium chloride 20 mEq tablet,extended release(part/cryst) 20 meq PO DAILY Check with primary doctor 12/31/22 doxycycline hyclate 100 mg capsule 100 mg PO BID #14 caps 01/06/23 lactulose 20 gram/30 mL oral solution 20 g (30 mL) PO TID 30 days #2,700 mL 01/06/23 Hospital Course Summary of Care Provided Minutes Spent on Discharge: 34 Hospital Course: 47-year-old male with a history of MRDD, seizure disorder, Marfan syndrome with none dilated aortic root of 5 cm, hypertension presented to [facility] 12/31/2022 with decreased oral intake of foods and liquids with elevated temperatures at home. He was brought in because of the poor p.o. intake, encephalopathy, fatigue. In ED he had a temperature of 102.9 with a BP of 94/51. UA with 4+ urine bacteria, 25 leuk esterase, positive nitrite but no marked RBCs or WBCs. Blood and urine cultures ordered. He was given 3 L normal saline in the ED and hospitalist called for admission. It was felt that he had encephalopathy secondary to complicated urinary tract infection and was started on Rocephin. Ultimately he was found to have Aerococcus viridans bacteremia with positive blood cultures and placed on vancomycin and ID consulted. He improved but did still remain somewhat tired and his ammonia was 54 but Depakote level was not supratherapeutic and liver panel not overtly abnormal. He was started on lactulose and did have improvement in mental status though still suspect that part of him being tired throughout the morning is due to his seizure medications however given these there from his neurologist for seizure disorder will not adjust these at this time. There is concern about his mobility and need for help based on physical therapy and nursing observation. Family initially insisted on taking him home however did briefly consider placement but ultimately did decide to take him home with home health and multiple family members available for help. During admission atenolol was held due to blood pressures being on the lower end of normal but they were stable. Infectious disease recommended oral doxycycline for discharge for 7 days and this was prescribed which would covers Aerococcus bacteremia as well as his urine culture containing Staph epidermidis 80-100,000 colony count, Staphylococcus lentis 50-80,000 colony count. Patient in stable condition on day of discharge. Discharge instructions as followed: -Your blood pressure has been on the low end of normal so your atenolol was held. Would recommend checking your blood pressure daily and if you have blood pressures with the systolic (top number) greater than 120 you can restart this medication. If you begin taking it again would still recommend checking your blood pressure daily and if the systolic (top number) is <100 or your heart rate is <60 would recommend holding that medication dose. -You were started on a medication, lactulose, due to an elevated ammonia which can cause increased tiredness.? You will take 20 g 3 times daily initially but this dose can be adjusted at home to achieve goal of 3 bowel movements a day -For your infection you will need to take doxycycline 100 mg twice daily, a prescription for this and lactulose will be sent to preferred pharmacy on file -Given your blood pressure, ammonia, and tiredness would discuss your Klonopin, phenobarbital, and Depakote seizure regimen with your neurologist -Please call your primary care provider's office upon discharge to schedule a hospital follow up within 1 week. -For any concerning signs or symptoms please call 911 or proceed to the nearest emergency department Physical Exam Narrative General: Resting comfortably, wakes up without significant difficulty, more awake today HEENT: Normocephalic Eyes: Extraocular movements grossly intact Neck: Supple Respiratory: Clear to auscultation bilaterally, normal respiratory effort Cardiovascular: Regular rate and rhythm GI: Soft, nontender, nondistended Extremities: No edema Musculoskeletal: Moving all extremities Neuro: Patient did not participate in neuro exam Skin: No rashes appreciated Psych: More awake today Weight / BMI Weight Weight: 77.5 kg Body Mass Index (BMI) 21.9 ABG / Lab / Microbiology Data Result Diagrams: 01/06/23 05:48 01/06/23 05:48 Laboratory: Laboratory Results - last 24 hr 01/05/23 14:30: Vancomycin Trough 33.4 H 01/05/23 22:05: Vancomycin Trough 24.8 H 01/06/23 05:48: WBC 7.8, RBC 3.23 L, Hgb 10.4 L, Hct 30.4 L, MCV 94.1 H, MCH 32.2 H, MCHC 34.2, RDW Std Deviation 42.7, RDW Coeff of Bel 12.4, Plt Count 303, MPV 8.9, Immature Gran % (Auto) 0.800, Neut % (Auto) 53.7, Lymph % (Auto) 29.1, [place] % (Auto) 14.5 H, Eos % (Auto) 1.5, Baso % (Auto) 0.4, Absolute Neuts (auto) 4.2, Absolute Lymphs (auto) 2.27, Nucleated RBC % 0 01/06/23 05:48: Sodium 139, Potassium 3.3 L, Chloride 111 H, Carbon Dioxide 26.0, Anion Gap 2 L, BUN 6 L, Creatinine 0.77, Estim Creat Clear Calc 130.05, Est GFR (MDRD) Af Amer 139, Est GFR (MDRD) Non-Af 115, BUN/Creatinine Ratio 7.8 L, Glucose 93, Calcium 8.3 L 01/06/23 05:48: Ammonia 60.0 H Microbiology: Microbiology 01/01/23 13:50 Blood Culture (Wb) - Anticubital Right Blood Culture - Final No growth in 5 days. 01/01/23 13:55 Blood Culture (Wb) - Anticubital Left Blood Culture - Final No growth in 5 days. 04/20/23 16:50 Blood Culture (Wb) - Right Forearm Blood Culture - Final Alpha hemolytic organism 12/31/22 16:25 Blood Culture (Wb) - Left Forearm Bacteria Detection (PCR) - Final 12/31/22 16:25 Blood Culture (Wb) - Left Forearm Blood Culture - Final Aerococcus viridans. 12/31/22 17:00 Urine, Catheterized Urine Culture - Final Staphylococcus epidermidis Staphylococcus lentus 01/03/23 02:35 Stool Stool Occult Blood (OTMMY) - Final 12/31/22 17:00 Nasal Secretion SARS-CoV-2 & FLU Antigen (Rapid) - Final D/C Instructions Discharge Diet: No restrictions Meaningful Use Info Meaningful Use Diagnoses (Choose all that apply): None applicable Discharge Plan Admission Admit Date/Time: 12/31/22 19:02 Primary Reason for Your Visit: Confusion and poor oral intake Attending Provider: Carri Mina Primary Care Provider: Parvin Callahan Consulting Providers: Ivonne Tavares ; Mario Chaidez ; Albino Allen Instructions Patient Instructions: Lactulose Oral solution [Encephalopathy], ED Fall Prevention Additional Instructions / Restrictions: DISCHARGE INSTRUCTIONS PLEASE READ *Please take this with you to your next doctors appointment* -Your blood pressure has been on the low end of normal so your atenolol was held. Would recommend checking your blood pressure daily and if you have blood pressures with the systolic (top number) greater than 120 you can restart this medication. If you begin taking it again would still recommend checking your blood pressure daily and if the systolic (top number) is <100 or your heart rate is <60 would recommend holding that medication dose. -You were started on a medication, lactulose, due to an elevated ammonia which can cause increased tiredness. You will take 20 g 3 times daily initially but this dose can be adjusted at home to achieve goal of 3 bowel movements a day -For your infection you will need to take doxycycline 100 mg twice daily, a prescription for this and lactulose will be sent to preferred pharmacy on file -Given your blood pressure, ammonia, and tiredness would discuss your Klonopin, phenobarbital, and Depakote seizure regimen with your neurologist -Please call your primary care provider's office upon discharge to schedule a hospital follow up within 1 week. -For any concerning signs or symptoms please call 911 or proceed to the nearest emergency department Discharge Orders/Prescriptions Prescriptions: New lactulose 20 gram/30 mL Solution 20 g PO TID 30 Days Qty: 2700 0RF doxycycline hyclate 100 mg capsule 100 mg PO BID Qty: 14 0RF Continued levothyroxine 75 mcg tablet 75 mcg PO DAILY clonazepam 0.5 mg tablet 0.5 mg PO BID phenobarbital 64.8 mg tablet 64.8 mg PO DAILY Label Comments: TAKE 1 TABLET BY MOUTH EVERY DAY multivitamin with minerals 1 EACH tablet 1 tab PO DAILY Divalproex Sodium [Divalproex Sodium Er] 500 MG Tab.Er.24h 1,500 mg PO QHS potassium chloride 20 MEQ tablet,ER particles/crystals 20 meq PO DAILY Discontinued atenolol 50 MG tablet 50 mg PO BID Referrals / Follow Up: Parvin Callahan MD [Primary Care Provider] - Within 1 Week Disposition Disposition (needs filled in before D/C Order can be placed): Home Health Service Charges/Coding Visit Charges Inpatient E&M: 09149 Disch Hosp >30min
--- NOTE | 2023-01-06 15:42 | CASEMGMT ---
Social Work GERONIMO received VM from pt's Direction Home Nicole CRISTINA this AM. Nicole reported pt receives 1 hot meal per week day. GERONIMO called Nicole back this afternoon to report d/c plan as changed again and pt will be retuning home with family rather than going to SNF. GERONIMO faxed Nicole pt's discharge summary. TIERRA Moralez
[2023-01-06 17:30] VITALS: BP 108/73; PULSE 75; RESP 18; TEMP 37.3; O2SAT 97
--- NOTE | 2023-01-06 18:07 | PCM.PN.HOSP ---
Reason for Visit Reason for Visit: Diagnoses Hypokalemia (12/31/22) Metabolic encephalopathy (12/31/22) Unspecified disorder of lens (12/31/22) Urinary tract infection, site not specified (12/31/22) Bacteremia (12/31/22) Subjective Subjective Was improving today, more awake but still not particularly interactive Objective Data Objective Data Vital Signs: Vital Signs Temp Pulse Resp BP Pulse Ox O2 Del Method 99.1 F 75 18 108/73 97 Room Air 01/06/23 17:30 01/06/23 17:30 01/06/23 17:30 01/06/23 17:30 01/06/23 17:30 01/06/23 17:30 Oxygen Delivery Method Room Air Weight: 77.5 kg Body Mass Index (BMI) 21.9 Intake & Output: Intake and Output for Last 24 Hours 01/04/23 01/05/23 01/06/23 23:59 23:59 23:59 Intake Total 3250.0 / 3250.0 1530 / 1630 1300 / 1300 Output Total 3800 / 3800 1725 / 2150 1575 / 1575 Balance -550.0 / -550.0 -195 / -520 -275 / -275 Lab / Micro Data Result Diagrams: 01/06/23 05:48 01/06/23 05:48 Labs: Laboratory Results - last 24 hr 01/05/23 22:05: Vancomycin Trough 24.8 H 01/06/23 05:48: WBC 7.8, RBC 3.23 L, Hgb 10.4 L, Hct 30.4 L, MCV 94.1 H, MCH 32.2 H, MCHC 34.2, RDW Std Deviation 42.7, RDW Coeff of Bel 12.4, Plt Count 303, MPV 8.9, Immature Gran % (Auto) 0.800, Neut % (Auto) 53.7, Lymph % (Auto) 29.1, [place] % (Auto) 14.5 H, Eos % (Auto) 1.5, Baso % (Auto) 0.4, Absolute Neuts (auto) 4.2, Absolute Lymphs (auto) 2.27, Nucleated RBC % 0 01/06/23 05:48: Sodium 139, Potassium 3.3 L, Chloride 111 H, Carbon Dioxide 26.0, Anion Gap 2 L, BUN 6 L, Creatinine 0.77, Estim Creat Clear Calc 130.05, Est GFR (MDRD) Af Amer 139, Est GFR (MDRD) Non-Af 115, BUN/Creatinine Ratio 7.8 L, Glucose 93, Calcium 8.3 L 01/06/23 05:48: Ammonia 60.0 H Micro: Microbiology 01/01/23 13:50 Blood Culture (Wb) - Anticubital Right Blood Culture - Final No growth in 5 days. 01/01/23 13:55 Blood Culture (Wb) - Anticubital Left Blood Culture - Final No growth in 5 days. 12/31/22 16:50 Blood Culture (Wb) - Right Forearm Blood Culture - Final Alpha hemolytic organism 12/31/22 16:25 Blood Culture (Wb) - Left Forearm Bacteria Detection (PCR) - Final 12/31/22 16:25 Blood Culture (Wb) - Left Forearm Blood Culture - Final Aerococcus viridans. 12/31/22 17:00 Urine, Catheterized Urine Culture - Final Staphylococcus epidermidis Staphylococcus lentus 01/03/23 02:35 Stool Stool Occult Blood (TOMMY) - Final 12/31/22 17:00 Nasal Secretion SARS-CoV-2 & FLU Antigen (Rapid) - Final Physical Exam Narrative General: Resting comfortably, wakes up without significant difficulty, more awake today HEENT: Normocephalic Eyes: Extraocular movements grossly intact Neck: Supple Respiratory: Clear to auscultation bilaterally, normal respiratory effort Cardiovascular: Regular rate and rhythm GI: Soft, nontender, nondistended Extremities: No edema Musculoskeletal: Moving all extremities Neuro: Patient did not participate in neuro exam Skin: No rashes appreciated Psych: More awake today Assessment & Plan Assessment/Plan (1) Bacteremia: PLAN: Plan #Aerococcus viridans bacteremia -Blood cultures on admission with Aerococcus viridans -Reportedly had elevated temperatures and was febrile prior to coming to the hospital -Is on vancomycin -Repeat cultures no growth to date but not finalized -Infectious disease consulted for assistance with antibiotic selection and duration -01/05: On vancomycin, doing well, upon DC will be switched to doxycycline #Urinary retention -Had urinary retention when he presented and had Cleaning placed -Attempted to remove Cleaning prior to discharge but patient had 400 and did not void -We will straight cath x1 and attempt 1 more time overnight, if still retaining will replace Cleaning and close outpatient follow-up with urology but especially given his mobility difficulties and his baseline mental status do not want to send him out with Cleaning catheter if not necessary -We will be discharged in the a.m. with or without Cleaning catheter Home with family #UTI -staph epi and staph lentus in urine -continue current management #MRDD/seizure disorder/Marfan syndrome with known dilated aortic root at 5 cm/hyperammonemia -Seems to be more interactive depending on the person he is interacting with -Did have an elevated ammonia however at 54, will start lactulose -Phenobarb level 10, within normal limits -Depakote level this p.m. prior to Depakote dose -01/05: Pneumonia slightly increased today, did start having bowel movements however, continue lactulose. Likely will need placement, mother considering this after her visit with him today -01/06: Patient is more alert today but still not particularly interactive, family initially agreeable for placement however today decided they wanted to take him home #Hypothyroidism -TSH and free T4 within normal limits -Continue home Synthroid #DVT ppx: Lovenox subcu Carri Mina MD Time spent in the patient's overall evaluation,decision-making process, review of diagnostic data, adjustment of management, discussion with other providers, nursing nursing and ancillary staff involved in patient's care documentation, 30 minutes Charges/Coding Visit Charges Inpatient E&M: 70048 Subs Hosp L2
[2023-01-06 18:11] LABS: Vancomycin, Random Level 9.6 ug/mL (0.0-15.0)
--- NOTE | 2023-01-06 18:56 | NURSING ---
Pt had not voided since white removal. This RN bladder scanned pt to see if pt was retaining. 386ml of urine was observed on scan. Dr Mina said to straight cath pt x1, monitor pt through the night and see if pt has voided on his own. If pt has not voided, white catheter can be reinserted and pt will go home with white catheter. 200ml of urine was obtained on first straight cath.
--- NOTE | 2023-01-06 19:07 | PCM.RX.CS ---
Consult Pharmacy has been consulted to manage selected antiobiotic: Vancomycin Type of Consult: Follow-up Labs: Sodium 139 mmol/L (136-145) 01/06/23 05:48 Potassium 3.3 mmol/L (3.5-5.1) L 01/06/23 05:48 Chloride 111 mmol/L (98-107) H 01/06/23 05:48 Carbon Dioxide 26.0 mmol/L (21.0-32.0) 01/06/23 05:48 Anion Gap 2 (5-15) L 01/06/23 05:48 BUN 6 mg/dL (7-18) L 01/06/23 05:48 Creatinine 0.77 mg/dL (0.70-1.30) 01/06/23 05:48 Est GFR (MDRD) Af Amer 139 mL/min (>60) 01/06/23 05:48 Est GFR (MDRD) Non-Af 115 mL/min (>60) 01/06/23 05:48 BUN/Creatinine Ratio 7.8 RATIO (10-20) L 01/06/23 05:48 Glucose 93 mg/dL (74-106) 01/06/23 05:48 Vancomycin Trough 24.8 ug/mL (5.0-15.0) H 01/05/23 22:05 Random Vancomycin 9.6 ug/mL (0.0-15.0) 01/06/23 17:07 Microbiology: Microbiology 01/01/23 13:50 Blood Culture (Wb) - Anticubital Right Blood Culture - Final No growth in 5 days. 01/01/23 13:55 Blood Culture (Wb) - Anticubital Left Blood Culture - Final No growth in 5 days. 12/31/22 16:50 Blood Culture (Wb) - Right Forearm Blood Culture - Final Alpha hemolytic organism 12/31/22 16:25 Blood Culture (Wb) - Left Forearm Bacteria Detection (PCR) - Final 12/31/22 16:25 Blood Culture (Wb) - Left Forearm Blood Culture - Final Aerococcus viridans. 12/31/22 17:00 Urine, Catheterized Urine Culture - Final Staphylococcus epidermidis Staphylococcus lentus 01/03/23 02:35 Stool Stool Occult Blood (TOMMY) - Final 12/31/22 17:00 Nasal Secretion SARS-CoV-2 & FLU Antigen (Rapid) - Final Goal Trough: 15-20 mcg/mL Pharmacy Plan for Drug Dosing: VANCOMYCIN LEVEL RECEIVED Current Vancomycin Dose: WAS ON 1G IV Q8H PREVIOUSLY Number of Doses Received: ~1/2 of dose admin 01/05 @2255 (stopped d/t elevated trough) Vancomycin Level: 9.6 Hours Since Last Dose: 19hr Renal Function: 0.77 Renal Function Trend: improvement from yesterday Vancomycin Plan/Comments: Patient had a random level drawn after a supratherapeutic trough last time. Level was 9.6 (goal 15-20). Will resume vancomycin and start patient on a regimen of 1g IV Q12hr to start 01/06/23 @1900 Pending Level: 01/08/23 @0630, prior to 4th dose of new regimen Pharmacy Service will continue to monitor and adjust dosing as required.
[2023-01-06] MEDS: 0.9% Saline Lock 10 ML Syringe IV (21:15)
[2023-01-06] MEDS: Vancomycin IV 1,000 MG/200 ML BAG 200 MG IV (21:15)
[2023-01-06] MEDS: Divalproex (ER) 500 MG Tablet 1500 MG PO (21:21)
[2023-01-06 21:55] VITALS: BP 114/67; PULSE 77; RESP 20; TEMP 37.1; O2SAT 94
[2023-01-07] MEDS: 0.9% Saline Lock 10 ML Syringe IV (03:39)
[2023-01-07 03:43] VITALS: BP 98/54; PULSE 73; RESP 18; TEMP 36.9; O2SAT 95
[2023-01-07 05:30] VITALS: BMI 21.7
[2023-01-07 05:47] LABS: Absolute Lymphocyte Count 2.01 X10^3/uL (0.83-4.51); Absolute Neutrophil Count 3.6 X10^3/uL (2.0-7.7); Basophil# 0.03 X10^3/uL; Basophil% 0.4 % (0-1); Eosinophil# 0.11 X10^3/uL; Eosinophils% 1.6 % (0-5); Hematocrit 30.3 % (40-54); Lymphocyte # 2.01 X10^3/ul (0.83-4.51); Lymphocyte % 29.8 % (19-41); Mean Corpuscular Hgb 31.2 pg (27.0-32.0); Mean Corpuscular Volume 94.4 fL (80-94); Mean Platelet Vol. 8.8 fl (6.2-12.0); Monocyte# 0.96 X10^3/uL; Monocyte% 14.2 % (0-10); NRBC Flagged by Analyzer 0 % (0-5); Neutrophil # 3.58 X10^3/uL (2.7-7.7); Neutrophil % 53.3 % (47-70); Platelet Count 316 K/mm3 (150-450); RBC Distribution Width CV 12.3 % (11.6-14.6); RBC Distribution Width SD 42.5 fl (35.1-43.9); Red Blood Count 3.21 M/mm3 (4.6-6.2); White Blood Count 6.7 K/mm3 (4.4-11.0)
[2023-01-07 06:13] LABS: Anion Gap 2 (5-15); BUN 6 mg/dL (7-18); BUN/Creat Ratio 7.5 RATIO (10-20); Calcium,Total 8.1 mg/dL (8.5-10.1); Chloride 111 mmol/L (98-107); EST Glomerular Filtration Rate 111 mL/min (>60); Est Glom Filt Rate - Afr Amer 134 mL/min (>60); Glucose 93 mg/dL (74-106); Potassium 3.4 mmol/L (3.5-5.1); Sodium Level 140 mmol/L (136-145)
[2023-01-07] MEDS: Vancomycin IV 1,000 MG/200 ML BAG 200 MG IV (06:19)
[2023-01-07] MEDS: Levothyroxine 75 MCG Tablet PO (06:23)
--- NOTE | 2023-01-07 06:29 | NURSING ---
This RN could not get patient to take his morning lactulose. He was tired and said, I want to go home a couple times. RN left it hanging out in case the next shift could get him to take it.
--- NOTE | 2023-01-07 08:20 | CASEMGMT ---
Addendum entered by Oscar Vargas 01/07/23 14:31: Call also placed to Pam @ [facility] and she was notified pt is discharging today. Per NOÉ Orozco slated for tomorrow. Addendum entered by Oscar Vargas 01/07/23 14:24: Discharge order is in. PN from today and discharge instructions sent to [facility] via [employer] and message sent notifying them pt is discharging home today. Original Note: MARGO CRISTINA NOTE: Pam @ [facility] notified that pt was not discharged yesterday and anticipate d/c today. MARGO CRISTINA will notify [facility] once d/c is cofirmed. Jennifer SAMUEL RN, CM
[2023-01-07] MEDS: clonazePAM 0.5 MG Tablet PO (09:46)
[2023-01-07] MEDS: Phenobarbital 32.4 MG Tablet 64.8 MG PO (09:58)
[2023-01-07] MEDS: Enoxaparin 40 MG/0.4 ML Syringe SC (09:58)
[2023-01-07] MEDS: Menthol/Lanolin/Calamine/Znox 113 GM Tube 1 APPLIC TOPICAL (10:08)
[2023-01-07 10:11] VITALS: BP 108/66; PULSE 74; RESP 16; TEMP 36.8; O2SAT 95
[2023-01-07] MEDS: Potassium Chloride 10mEq/100mL 10 MEQ/100 ML IV.SOLN. 100 MEQ IV BOLUS ×2 (11:40→12:45)
[2023-01-07 11:42] VITALS: BP 102/68; PULSE 85; RESP 16; TEMP 36.5; O2SAT 93
--- NOTE | 2023-01-07 11:44 | PCM.PN.HOSP ---
Reason for Visit Reason for Visit: Diagnoses Hypokalemia (12/31/22) Metabolic encephalopathy (12/31/22) Unspecified disorder of lens (12/31/22) Urinary tract infection, site not specified (12/31/22) Bacteremia (12/31/22) Subjective Subjective Patient upset this morning that he did not go home yesterday and refused lactulose. Continues to be more awake. Did urinate overnight Objective Data Objective Data Vital Signs: Vital Signs Temp Pulse Resp BP Pulse Ox O2 Del Method 97.7 F L 85 16 102/68 93 Room Air 01/07/23 11:42 01/07/23 11:42 01/07/23 11:42 01/07/23 11:42 01/07/23 11:42 01/07/23 11:42 Oxygen Delivery Method Room Air Weight: 76.9 kg Body Mass Index (BMI) 21.7 Intake & Output: Intake and Output for Last 24 Hours 01/05/23 01/06/23 01/07/23 23:59 23:59 23:59 Intake Total 1530 / 1630 1500 / 1500 220 / 220 Output Total 1725 / 2150 1775 / 2425 1050 / 1050 Balance -195 / -520 -275 / -925 -830 / -830 Lab / Micro Data Result Diagrams: 01/07/23 05:36 01/07/23 05:36 Labs: Laboratory Results - last 24 hr 01/06/23 17:07: Random Vancomycin 9.6 01/07/23 05:36: WBC 6.7, RBC 3.21 L, Hgb 10.0 L, Hct 30.3 L, MCV 94.4 H, MCH 31.2, MCHC 33.0, RDW Std Deviation 42.5, RDW Coeff of Bel 12.3, Plt Count 316, MPV 8.8, Immature Gran % (Auto) 0.700, Neut % (Auto) 53.3, Lymph % (Auto) 29.8, [place] % (Auto) 14.2 H, Eos % (Auto) 1.6, Baso % (Auto) 0.4, Absolute Neuts (auto) 3.6, Absolute Lymphs (auto) 2.01, Nucleated RBC % 0 01/07/23 05:36: Sodium 140, Potassium 3.4 L, Chloride 111 H, Carbon Dioxide 27.0, Anion Gap 2 L, BUN 6 L, Creatinine 0.80, Estim Creat Clear Calc 125.50, Est GFR (MDRD) Af Amer 134, Est GFR (MDRD) Non-Af 111, BUN/Creatinine Ratio 7.5 L, Glucose 93, Calcium 8.1 L 01/07/23 05:36: Ammonia 57.0 H Micro: Microbiology 01/01/23 13:50 Blood Culture (Wb) - Anticubital Right Blood Culture - Final No growth in 5 days. 01/01/23 13:55 Blood Culture (Wb) - Anticubital Left Blood Culture - Final No growth in 5 days. 12/31/22 16:50 Blood Culture (Wb) - Right Forearm Blood Culture - Final Alpha hemolytic organism 12/31/22 16:25 Blood Culture (Wb) - Left Forearm Bacteria Detection (PCR) - Final 12/31/22 16:25 Blood Culture (Wb) - Left Forearm Blood Culture - Final Aerococcus viridans. 12/31/22 17:00 Urine, Catheterized Urine Culture - Final Staphylococcus epidermidis Staphylococcus lentus 01/03/23 02:35 Stool Stool Occult Blood (TOMMY) - Final 12/31/22 17:00 Nasal Secretion SARS-CoV-2 & FLU Antigen (Rapid) - Final Physical Exam Narrative General: Resting comfortably, continues to improve and alertness HEENT: Normocephalic Eyes: Extraocular movements grossly intact Neck: Supple Respiratory: Clear to auscultation bilaterally, normal respiratory effort Cardiovascular: Regular rate and rhythm GI: Soft, nontender, nondistended Extremities: No edema Musculoskeletal: Moving all extremities Neuro: Patient did not participate in neuro exam Skin: No rashes appreciated Psych: More awake today Assessment & Plan Assessment/Plan (1) Bacteremia: PLAN: Plan #Aerococcus viridans bacteremia -Blood cultures on admission with Aerococcus viridans -Reportedly had elevated temperatures and was febrile prior to coming to the hospital -Is on vancomycin -Repeat cultures no growth to date but not finalized -Infectious disease consulted for assistance with antibiotic selection and duration -01/05: On vancomycin, doing well, upon DC will be switched to doxycycline -01/06: DC home on Doxy #Urinary retention -Had urinary retention when he presented and had Cleaning placed -Attempted to remove Cleaning prior to discharge but patient had 400 and did not void -We will straight cath x1 and attempt 1 more time overnight, if still retaining will replace Cleaning and close outpatient follow-up with urology but especially given his mobility difficulties and his baseline mental status do not want to send him out with Cleaning catheter if not necessary -We will be discharged in the a.m. with or without Cleaning catheter Home with family -01/06: Urinated overnight, DC home with family today #UTI -staph epi and staph lentus in urine -continue current management #MRDD/seizure disorder/Marfan syndrome with known dilated aortic root at 5 cm/hyperammonemia -Seems to be more interactive depending on the person he is interacting with -Did have an elevated ammonia however at 54, will start lactulose -Phenobarb level 10, within normal limits -Depakote level this p.m. prior to Depakote dose -01/05: Pneumonia slightly increased today, did start having bowel movements however, continue lactulose. Likely will need placement, mother considering this after her visit with him today -01/06: Patient is more alert today but still not particularly interactive, family initially agreeable for placement however today decided they wanted to take him home #Hypothyroidism -TSH and free T4 within normal limits -Continue home Synthroid #DVT ppx: Lovenox subcu Carri Mina MD Time spent in the patient's overall evaluation,decision-making process, review of diagnostic data, adjustment of management, discussion with other providers, nursing nursing and ancillary staff involved in patient's care documentation, 20 minutes Charges/Coding Visit Charges Inpatient E&M: 22087 [facility] Hosp L1
--- NOTE | 2023-01-08 09:32 | CASEMGMT ---
Social Work SW received a message from pt's nurse case management Nicole inquiring when pt was discharged. SW called her back and left a message letting her know pt went home on January 07. KAYE Cavanaugh
== END 2023-01-07 16:49 | disposition home health service (06) | DRG 689 ==
LOC: ED 17:02 → MS3 19:10
PROVIDERS: Admitting Provider Family Medicine; Emergency Provider Student in an Organized Health Care Education/Training Program; PCP Internal Medicine; Referring Provider Student in an Organized Health Care Education/Training Program; Visit Provider Internal Medicine
DX: N39.0 Urinary tract infection, site not specified (principal); G93.41 Metabolic encephalopathy; R78.81 Bacteremia; Q25.43 Congenital aneurysm of aorta; Q87.40 Marfan syndrome, unspecified; I95.89 Other hypotension; G40.909 Epilepsy, unspecified, not intractable, without status epilepticus; E03.9 Hypothyroidism, unspecified; I10 Essential (primary) hypertension; E87.6 Hypokalemia; R79.1 Abnormal coagulation profile; Z66 Do not resuscitate; B95.8 Unspecified staphylococcus as the cause of diseases classified elsewhere; F79 Unspecified intellectual disabilities
CPT/HCPCS: 36415; 36600; 71045; 80048; 80053; 80076; 80164; 80184; 80202; 81001; 82140; 82274; 82728; 82803; 83540; 83550; 83605; 83735; 84100; 84439; 84443; 84484; 85025; 85610; 85730; 87040; 87077; 87086; 87088; 87149; 87186; 87428; 93005; 97110; 97162; 97166; 97530; 97535; 99285; J7030; J7040; J7050; J7120; P9612; A4216; J2405

== ENCOUNTER → 2023-02-07 23:59 | Outpatient (RCR) | payer MEDICARE, MEDICAID, SELFPAY ==
[2020-04-24 12:37] VITALS: BMI 26.6
[2020-05-14 17:03] LABS: Absolute Lymphocyte Count 3.22 X10^3/uL (0.83-4.51); Absolute Neutrophil Count 1.6 X10^3/uL (2.0-7.7); Basophil# 0.04 X10^3/uL; Basophil% 0.7 % (0-1); Eosinophil# 0.07 X10^3/uL; Eosinophils% 1.3 % (0-5); Hematocrit 36.2 % (40-54); Hemoglobin 12.4 g/dL (13.0-16.5); Lymphocyte # 3.22 X10^3/ul (4.0); Lymphocyte % 57.5 % (19-41); Mean Corp Hgb Conc 34.3 g/dL (32-36); Mean Corpuscular Hgb 32.8 pg (27.0-32.0); Mean Corpuscular Volume 95.8 fL (80-94); Mean Platelet Vol. 11.2 fl (6.2-12.0); Monocyte# 0.61 X10^3/uL; Monocyte% 10.9 % (0-10); NRBC Flagged by Analyzer 0 % (0-5); Neutrophil # 1.64 X10^3/uL (2.7-7.7); Neutrophil % 29.2 % (47-70); Platelet Count 213 K/mm3 (150-450); RBC Distribution Width SD 44.3 fl (35.1-43.9); Red Blood Count 3.78 M/mm3 (4.6-6.2); White Blood Count 5.6 K/mm3 (4.4-11.0)
[2020-05-14 17:44] LABS: ALB/GLOB Ratio 0.7 RATIO (0.9-2.4); AST(SGOT) 10 U/L (15-37); Alanine Aminotransfer ALT/SGPT 12 U/L (16-61); Alkaline Phosphatase 70 U/L (45-117); Anion Gap 6 (5-15); BUN 7 mg/dL (7-18); BUN/Creat Ratio 10.8 RATIO (10-20); Calcium,Total 7.9 mg/dL (8.5-10.1); Chloride 107 mmol/L (98-107); Creatinine, Serum 0.65 mg/dL (0.70-1.30); EST Glomerular Filtration Rate 142 mL/min (>60); Est Glom Filt Rate - Afr Amer 172 mL/min (>60); Globulin 4.1 g/dL (2.2-4.2); Glucose 86 mg/dL (74-106); Potassium 3.4 mmol/L (3.5-5.1); Protein, Total 7.1 g/dL (6.4-8.2); Sodium Level 138 mmol/L (136-145); Thyroid Stim Hormone (TSH) 4.11 uIU/mL (0.358-3.74)
== END ==
LOC: HH 05-14 16:28
PROVIDERS: PCP Internal Medicine
DX: A41.51 Sepsis due to Escherichia coli [E. coli] (principal); N30.00 Acute cystitis without hematuria; E87.6 Hypokalemia; I10 Essential (primary) hypertension
CPT/HCPCS: 80053; 84443; 85025

== ENCOUNTER → 2023-05-20 | Outpatient (CLI) | payer MEDICARE, MEDICAID, SELFPAY ==
[2023-05-20 16:57] LABS: Absolute Lymphocyte Count 2.98 X10^3/uL (0.83-4.51); Absolute Neutrophil Count 5.2 X10^3/uL (2.0-7.7); Basophil# 0.06 X10^3/uL; Basophil% 0.6 % (0-1); Eosinophil# 0.19 X10^3/uL; Hematocrit 41.9 % (40-54); Hemoglobin 14.4 g/dL (13.0-16.5); Lymphocyte # 2.98 X10^3/ul (0.83-4.51); Lymphocyte % 31.1 % (19-41); Mean Corp Hgb Conc 34.4 g/dL (32-36); Mean Corpuscular Hgb 32.5 pg (27.0-32.0); Mean Corpuscular Volume 94.6 fL (80-94); Mean Platelet Vol. 10.9 fl (6.2-12.0); Monocyte# 1.09 X10^3/uL; Monocyte% 11.4 % (0-10); NRBC Flagged by Analyzer 0 % (0-5); Neutrophil # 5.21 X10^3/uL (2.7-7.7); Neutrophil % 54.4 % (47-70); Platelet Count 213 K/mm3 (150-450); RBC Distribution Width CV 12.5 % (11.6-14.6); RBC Distribution Width SD 43.6 fl (35.1-43.9); Red Blood Count 4.43 M/mm3 (4.6-6.2); White Blood Count 9.6 K/mm3 (4.4-11.0)
[2023-05-20 17:31] LABS: ALB/GLOB Ratio 0.6 RATIO (0.9-2.4); AST(SGOT) 12 U/L (15-37); Alanine Aminotransfer ALT/SGPT 13 U/L (16-61); Albumin, Serum 3.2 g/dL (3.2-5.0); Alkaline Phosphatase 67 U/L (45-117); Anion Gap 6 (5-15); BUN 15 mg/dL (7-18); BUN/Creat Ratio 16.4 RATIO (10-20); Calcium,Total 8.6 mg/dL (8.5-10.1); Chloride 105 mmol/L (98-107); Creatinine, Serum 0.92 mg/dL (0.70-1.30); EST Glomerular Filtration Rate 95 mL/min (>60); Est Glom Filt Rate - Afr Amer 114 mL/min (>60); Globulin 5.2 g/dL (2.2-4.2); Glucose 110 mg/dL (74-106); Potassium 3.4 mmol/L (3.5-5.1); Protein, Total 8.4 g/dL (6.4-8.2); Sodium Level 137 mmol/L (136-145)
[2023-05-20 17:44] LABS: Valproic Acid (Depakene) Level 63 ug/mL (50-100)
== END | disposition home or self-care (01) ==
LOC: LAB 16:11
PROVIDERS: PCP Psychiatry & Neurology Neurology; Referring Provider Psychiatry & Neurology Neurology; Visit Provider Psychiatry & Neurology Neurology
DX: G40.909 Epilepsy, unspecified, not intractable, without status epilepticus (principal)
CPT/HCPCS: 36415; 80053; 80164; 80184; 85025

== ENCOUNTER → 2024-01-12 | Outpatient (CLI) | payer MEDICARE, MEDICAID, SELFPAY ==
--- NOTE | 2024-01-12 16:30 | CT_ITS ---
STUDY: CTA CHEST REASON FOR EXAM: Male, 48 years old. Marfan syndrome RADIATION DOSAGE (If Supplied By Facility): CTDIvol = ( 7.77 ) mGy, DLP = ( 272.62 ) mGycm TECHNIQUE: The examination was performed with the intravenous administration of IV 100mL Isovue-370. Post-processing of the angiographic images was performed, with multiplanar reformation and 3D reconstruction. Individualized dose optimization techniques were used for this CT. COMPARISON: None. FINDINGS: Normal enhancement of the main pulmonary artery and right and left pulmonary arteries. Normal enhancement of the bilateral peripheral pulmonary arteries. There is no demonstrated pulmonary embolism. There is aneurysmal dilatation of the ascending aorta. The transverse diameter of the ascending aorta measures 55.1 mm''s. There is no demonstrated aortic dissection. Normal heart and pericardium. Normal mediastinum. Normal hilar regions. Normal visualized trachea and bronchi. The lungs are well expanded. Normal pulmonary parenchyma. Normal pleura. Normal chest wall structures. Normal osseous structures. Normal visualized upper abdomen. CT/CTA Chest W/WO Contrast IMPRESSION: Dilatation of the root of the descending thoracic aorta with a transverse dimension of 55.1 mm. Electronically Signed: Pravin Elias MD at 13:34 EDT ,
== END | disposition home or self-care (01) ==
LOC: CT 16:25
PROVIDERS: PCP Internal Medicine; Referring Provider Physician Assistant Medical; Visit Provider Physician Assistant Medical
DX: Q87.410 Marfan syndrome with aortic dilation (principal)
CPT/HCPCS: 71275; Q9967; A4216

== ENCOUNTER → 2024-03-17 | Outpatient (CLI) | payer MEDICARE, MEDICAID, SELFPAY ==
--- NOTE | 2024-03-17 12:45 | ECHOD_ITS ---
Reason For Study: Marfans w/AO Dilation Procedure This was a 2D Doppler, Color Flow transthoracic echocardiogram. Techncially difficult due to patient condition. Exam performed in department. Left Ventricle Normal left ventricle. Left ventricular systolic function is normal. The left ventricular ejection fraction is 55 %. No regional wall motion abnormalities noted. Right Ventricle Normal RV size. Normal systolic function. Atria Normal left atrium. Normal right atrium. Mitral Valve Bileaflet diffuse mitral valve thickening. Mild mitral valve prolapse. Tricuspid Valve Normal tricuspid valve. Mild tricuspid valve insufficiency. Aortic Valve Trisinus/trileaflet aortic valve. Mild (1+) aortic valve insufficiency. Great Vessels Moderately dilated aortic root. Ascending aorta measuring 5.0 cm. Compared to the previous there is mild increase in the dimension. The pulmonary artery is normal size. Normal inferior vena cava. Pericardium/Pleural No pericardial effusion. MMode/2D Measurements & Calculations LVIDd: 4.9 cm IVSd: 0.81 cm Ao root diam: 4.9 cm LVIDs: 4.0 cm LVPWd: 0.75 cm RVDd: 3.4 cm FS: 18.1 % TAPSE: 1.5 cm Time Measurements MV dec time: 0.33 sec Doppler Measurements & Calculations MV E max kev: 47.9 cm/sec Lat Peak E' Kev: 8.6 cm/sec Med Peak E' Kev: 8.4 cm/sec MV A max kev: 74.5 cm/sec E/E' lat: 5.6 E/E' med: 5.7 MV E/A: 0.64 MV V2 max: 72.4 cm/sec MV P1/2t max kev: 61.2 cm/sec Ao V2 max: 86.1 cm/sec MV max P.1 mmHg MV P1/2t: 122.8 msec Ao max P.0 mmHg MV V2 mean: 42.0 cm/sec MV dec slope: 146.0 cm/sec2 MV mean P.81 mmHg MV V2 VTI: 25.3 cm MVA(P1/2t): 1.8 cm2 AI max kev: 380.7 cm/sec LV V1 max: 70.1 cm/sec MR max kev: 485.6 cm/sec AI max P.0 mmHg LV V1 max P.0 mmHg MR max P.3 mmHg AI dec slope: 181.9 cm/sec2 MR mean kev: 395.3 cm/sec AI P1/2t: 613.1 msec MR mean P.6 mmHg MR VTI: 151.9 cm PA V2 max: 79.7 cm/sec TR max kev: 181.3 cm/sec PA max PG (full): 1.1 mmHg TR max P.2 mmHg ECHO/Echo Complete Interpretation Summary Ascending aorta measuring 5.0 cm. Compared to the previous there is mild increa se in the dimension. Normal left ventricle. Left ventricular systolic function is normal. The left ventricular ejection fraction is 55 %. Moderately dilated aortic root. Ordering Physician: Cathleen Vaughn Referring Physician: Cathleen Vaughn Performed By: Tigre Andrade RCS
== END | disposition home or self-care (01) ==
LOC: CVS 12:41
PROVIDERS: PCP Internal Medicine; Referring Provider Physician Assistant Medical; Visit Provider Physician Assistant Medical
DX: Q87.410 Marfan syndrome with aortic dilation (principal)
CPT/HCPCS: 93306

== ENCOUNTER → 2024-05-22 | Outpatient (CLI) | payer MEDICARE, MEDICAID, SELFPAY ==
[2024-05-22 16:06] LABS: Absolute Lymphocyte Count 2.81 X10^3/uL (0.83-4.51); Absolute Neutrophil Count 2.9 X10^3/uL (2.0-7.7); Basophil# 0.04 X10^3/uL; Basophil% 0.6 % (0-1); Eosinophil# 0.52 X10^3/uL; Eosinophils% 7.3 % (0-5); Hematocrit 42.7 % (40-54); Hemoglobin 14.4 g/dL (13.0-16.5); Lymphocyte # 2.81 X10^3/ul (0.83-4.51); Lymphocyte % 39.5 % (19-41); Mean Corp Hgb Conc 33.7 g/dL (32-36); Mean Corpuscular Hgb 31.6 pg (27.0-32.0); Mean Corpuscular Volume 93.6 fL (80-94); Mean Platelet Vol. 10.5 fl (6.2-12.0); Monocyte# 0.79 X10^3/uL; Monocyte% 11.1 % (0-10); NRBC Flagged by Analyzer 0 % (0-5); Neutrophil # 2.93 X10^3/uL (2.7-7.7); Neutrophil % 41.1 % (47-70); Platelet Count 196 K/mm3 (150-450); RBC Distribution Width CV 12.9 % (11.6-14.6); RBC Distribution Width SD 44.5 fl (35.1-43.9); Red Blood Count 4.56 M/mm3 (4.6-6.2); White Blood Count 7.1 K/mm3 (4.4-11.0)
[2024-05-22 16:32] LABS: Valproic Acid (Depakene) Level 110 ug/mL (50-100)
[2024-05-22 16:38] LABS: ALB/GLOB Ratio 0.6 RATIO (0.9-2.4); AST(SGOT) 11 U/L (15-37); Alanine Aminotransfer ALT/SGPT 14 U/L (16-61); Alkaline Phosphatase 72 U/L (45-117); Anion Gap 7 (5-15); BUN 13 mg/dL (7-18); BUN/Creat Ratio 14.4 RATIO (10-20); Calcium,Total 8.7 mg/dL (8.5-10.1); Chloride 106 mmol/L (98-107); EST Glomerular Filtration Rate 96 mL/min (>60); Est Glom Filt Rate - Afr Amer 116 mL/min (>60); Globulin 4.7 g/dL (2.2-4.2); Glucose 118 mg/dL (74-106); Potassium 3.8 mmol/L (3.5-5.1); Protein, Total 7.7 g/dL (6.4-8.2); Sodium Level 136 mmol/L (136-145)
== END | disposition home or self-care (01) ==
LOC: LAB 15:24
PROVIDERS: PCP Internal Medicine; Referring Provider Psychiatry & Neurology Neurology; Visit Provider Psychiatry & Neurology Neurology
DX: G40.909 Epilepsy, unspecified, not intractable, without status epilepticus (principal)
CPT/HCPCS: 36415; 80053; 80164; 80184; 85025

== ENCOUNTER 2025-09-04 13:49 | Inpatient (IN) | payer MEDICARE, MEDICAID, SELFPAY ==
[2025-09-04] VITALS (48 sets, daily range): BP systolic 72–111; BP diastolic 34–80; PULSE 64–149; RESP 11–20; TEMP 36.1–36.7; O2SAT 17–100; BMI 18.2
--- NOTE | 2025-09-04 14:04 | ED.RN ---
Pt lives with elderly family gamaliel who has 3 other MRDD pts to take care of. Per EMS family did not know how long the pt had been wet or what his normal mentation is. Pt had bed bugs on arrival to ED. EMS said that they were at the home a year ago for a DOA of the caregivers and the house looks exactly the same as it did a year ago. When caregiver was asked about PTs medications she said I dont know he takes something for seizures. I do the best I can. There are no external resources being used to help with care in the home. EMS is calling [facility] and [facility] our SW will contact them as well.
--- NOTE | 2025-09-04 14:36 | EKG12_ITS ---
Test Reason : alt loc Blood Pressure : */* mmHG Vent. Rate : 71 BPM Atrial Rate : 71 BPM P-R Int : 158 ms QRS Dur : 86 ms QT Int : 420 ms P-R-T Axes : 48 77 56 degrees QTcB Int : 456 ms Normal sinus rhythm Normal ECG Confirmed by Wilian Kimble ([id number]), publishing editor LUTHER SHIPLEY ([id number]) on 09/07/2025 8:16:30 AM Referred By: Confirmed By: Wilian Kimble
[2025-09-04] MEDS: 0.9% Normal Saline (500mL Bag) 500 ML 999 ML IV (14:39)
[2025-09-04 15:10] LABS: Mucous, Urine 0 SEEN /hpf (<or=2+); Squamous Epithelial Cells - UA 0 SEEN /hpf (0-5)
[2025-09-04 15:11] LABS: Hematocrit 36.3 % (40-54); Hemoglobin 12.2 g/dL (13.0-16.5); Immature Granulocytes Count 0.010 X10^3/uL (0.0-0.0); Mean Corp Hgb Conc 33.6 g/dL (32-36); Mean Corpuscular Volume 92.8 fL (80-94); Mean Platelet Vol. 12.6 fl (6.2-12.0); NRBC Flagged by Analyzer 0 % (0-5); Platelet Count 322 K/mm3 (150-450); RBC Distribution Width CV 12.5 % (11.6-14.6); RBC Distribution Width SD 41.9 fl (35.1-43.9); Red Blood Count 3.91 M/mm3 (4.6-6.2); White Blood Count 4.9 K/mm3 (4.4-11.0)
[2025-09-04 15:12] LABS: Color, Urine Yellow (Yellow); Glucose, Dipstick Normal (Normal); Ketone-Dipstick Negative (Negative); Leukocyte Esterase-Dipstick Negative /ul (Negative); Nitrite-Dipstick Positive (Negative); Occult Blood-Urine 10 /ul (Negative); Protein-Dipstick 15 mg/dl (Negative); Specific Gravity, Urine 1.010 (1.002-1.030); Urine Bilirubin Dipstick Negative (Negative)
[2025-09-04 15:18] LABS: Red Blood Cells-Urine 0-5 SEEN /hpf (0-5)
--- NOTE | 2025-09-04 15:25 | ED.RN ---
Dr. Davis notified of persistent BP in 80s with map less than 65. No new orders at this time.
[2025-09-04 15:38] LABS: Prothrombin Time (Protime)PT. 19.8 SECONDS (11.7-14.9)
[2025-09-04 15:39] LABS: Partial Thromboplast Time 41.8 Seconds (24.1-36.2)
--- NOTE | 2025-09-04 15:39 | RAD_ITS ---
PROCEDURE: CHEST 1 VIEW (PORTABLE) 09/04/2025 REASON FOR EXAM: WEAKNESS TECHNIQUE: Frontal view of the chest. COMPARISON: 12/31/2022 chest FINDINGS: Lungs: Lungs clear of pneumonia and congestion. Pleura: No pleural effusions, thickening, or pneumothorax. Heart: Normal in size and configuration. Mediastinum/Alyse: Unremarkable. Great vessels: Unremarkable. Bones/soft tissues: Cardiac monitoring leads overlie the chest wall. RAD/Chest 1 View (Portable) IMPRESSION: No active cardiopulmonary disease. Reading Location: [place] [id number]
--- NOTE | 2025-09-04 15:45 | EX.ED.DYSGE1 ---
HPI History of Present Illness Chief Complaint: Alt LOC Informant: parent Narrative Narrative: 49-year-old male history of untreated hypertension, Marfan syndrome, MRDD component as well as seizure disorder presenting with altered mental status. Family states his baseline is that he typically will sit in a chair, some ambulation, and have minimal conversation. They have noted over the past few days he has not really gotten out of bed And eating or drinking. They note that he is now not talking. Family is not a source of a lot of information. Family denies any recent infectious symptoms like cough runny nose vomiting or diarrhea. They have not noticed any fevers. Reviewing the chart I see that he has had encephalopathy due to urinary tract infections in the past. Per prior reports the patient's systolic blood pressures are typically in the 90s. [facility] Medical History Lens disorder Hypokalemia Bacteremia Anxiety Hypothyroidism Essential hypertension Dilatation of aortic root due to Marfan syndrome Marfan syndrome Seizure disorder Home Medications ?Medication ?Instructions ?Recorded ?Last Taken ?Type clonazepam 0.5 mg tablet 0.5 mg PO BID ANXIETY 03/22/19 Unknown History levothyroxine 75 mcg tablet 75 mcg PO DAILY THYROID 03/22/19 Unknown History Divalproex Sodium [Divalproex 1,500 mg PO QHS SEIZURES 04/24/20 Unknown History Sodium Er] multivitamin with minerals 1 tab PO DAILY SUPPLEMENT 04/24/20 Unknown History phenobarbital 64.8 mg tablet 64.8 mg PO DAILY SEIZURES 04/24/20 Unknown History potassium chloride 20 mEq 20 meq PO DAILY Check with primary 12/31/22 Unknown History tablet,extended release(part/cryst) doctor lactulose 20 gram/30 mL oral 20 g (30 mL) PO TID 30 days #2,700 01/06/23 Unknown Rx solution mL Allergy/AdvReac Type Severity Reaction Status Date / Time No Known Allergies Allergy Verified 09/04/25 13:57 Family History Mother Hypertension Marfans syndrome Uncle Marfans syndrome Ruptured, aorta Uncle Marfans syndrome Ruptured, aorta Father CAD (coronary artery disease) Heart disease Hypertension Surgical History dislocated lenses, removed hamstring lengthening bilateral Social History household members: family Smoking Status: Never smoker alcohol intake: never substance use type: does not use caffeine: Yes Type: carbonated beverages Number of servings: 1 and coffee Number of servings: 2 ROS ROS ED Review of Systems ROS Unobtainable: due to mental condition Constitutional Constitutional ED: Denies fever(s) ENT ENT ED: Denies rhinorrhea or sore throat Respiratory/Chest Respiratory/Chest: Denies cough or dyspnea Gastrointestinal Gastrointestinal: Denies constipation, diarrhea or vomiting EXAM Physical Exam Narrative Exam Narrative: Patient has evidence of bedbug infestation Const Vital Signs: 09/04/25 13:50 09/04/25 13:56 09/04/25 14:36 Temperature 97.6 F L 97.6 F L Temperature Source Axillary Axillary Pulse Rate 74 71 Respiratory Rate 16 16 Blood Pressure 88/68 L 88/68 L Blood Pressure Mean 74 74 Pulse Ox 99 100 98 Oxygen Delivery Method Room Air Room Air Room Air 09/04/25 14:56 09/04/25 15:00 09/04/25 15:30 Temperature 96.9 F L 96.9 F L 96.9 F L Temperature Source Core Core Core Pulse Rate 67 70 68 Respiratory Rate 15 20 H 12 Blood Pressure 72/40 L 74/43 L 95/54 L Blood Pressure Mean 50 53 67 Pulse Ox 98 17 100 Oxygen Delivery Method Room Air Room Air Room Air 09/04/25 15:32 09/04/25 15:35 09/04/25 15:40 Temperature 96.9 F L 96.9 F L 96.9 F L Temperature Source Core Core Core Pulse Rate 68 71 74 Respiratory Rate 13 11 L Blood Pressure 91/56 L 86/48 L Blood Pressure Mean 68 60 Pulse Ox 98 99 99 Oxygen Delivery Method 09/04/25 15:45 09/04/25 15:45 09/04/25 15:50 Temperature 97.2 F L 97.0 F L 97.1 F L Temperature Source Core Core Core Pulse Rate 74 76 74 Respiratory Rate 17 14 16 Blood Pressure 86/48 L 74/62 L 104/67 Blood Pressure Mean 60 69 79 Pulse Ox 99 99 99 Oxygen Delivery Method Room Air 09/04/25 15:55 09/04/25 16:00 09/04/25 16:00 Temperature 97.2 F L 97.4 F L 97.2 F L Temperature Source Core Core Core Pulse Rate 73 65 75 Respiratory Rate 12 11 L 15 Blood Pressure 96/60 104/66 85/58 L Blood Pressure Mean 72 78 68 Pulse Ox 99 99 98 Oxygen Delivery Method Room Air 09/04/25 16:05 09/04/25 16:10 Temperature 97.3 F L 97.4 F L Temperature Source Core Core Pulse Rate 69 65 Respiratory Rate 14 11 L Blood Pressure 98/55 L 104/66 Blood Pressure Mean 69 79 Pulse Ox 99 99 Oxygen Delivery Method Positive well developed, cachectic and unkempt General Appearance ED: unkempt, well developed and cachectic Nutritional Appearance: cachectic HEENT Reports normocephalic, head/scalp atraumatic and dry mucous membranes Mouth ED: Yes dry mucous membranes Mouth: dry mucous membranes Eyes PERRL and EOMs intact bilaterally Neck no lymphadenopathy, supple and no JVD Resp normal respiratory effort and clear to auscultation bilaterally Cardio regular rate, regular rhythm and no murmurs GI normal to inspection, nondistended, normoactive bowel sounds and non-tender Palpation: soft Back/Spine no CVA tenderness and normal ROM Extremity normal to inspection General Extremety ED: Negative for edema General Extremity: Negative for edema Neuro oriented x3 and CN's II-XII intact bilaterally Sensorium / Orientation: alert Motor Exam: strength 5/5 throughout Psych mental status grossly normal Appearance: unkempt Mood & Affect: Negative for depressed or tearful Skin no rashes or lesions noted and no wounds MDM MDM MDM Narrative Medical decision making narrative: Differential diagnosis includes but not limited to sepsis viral syndrome dehydration electrolyte abnormalities hepatic encephalopathy acute kidney injury UTI pneumonia Patient's white count 4.9 hemoglobin 12.2 platelet count of 322. INR is 1.7 PTT at 41.8. Urinalysis 0-5 reds 0 white cells 3+ bacteria positive nitrates negative leukocyte esterase. Blood and urine cultures were sent. Patient received 2 g of Rocephin. Initially 500 cc fluid bolus was ordered until review of sodium level. Blood pressure currently improved 96/57. My independent interpretation of the single view chest x-ray is no acute process. COVID influenza RSV swabs are negative. Sodium level returns at 139 creatinine 0.55 BUN is 6 CO2 23.3 and anion gap of 7 potassium 3.9 normal LFTs noted albumin low at 2.9 total protein low 5.8. Additional 2 L of normal saline was ordered. Care of the patient be turned over to the oncoming physician for check of outstanding labs and CTs. I have spoken with the hospitalist regarding admission and we have we will work towards that goal. History & Record Review Discussion w/independent historian: EMS personnel and Family Additional record(s) reviewed:: Prior inpatient record, Prior ED visit and Prior labs Lab Data Attestation: I reviewed the patient's lab results. Labs: Laboratory Results - last 24 hr 09/04/25 09/04/25 09/04/25 15:01 15:02 15:18 WBC 4.9 RBC 3.91 L Hgb 12.2 L Hct 36.3 L MCV 92.8 MCH 31.2 MCHC 33.6 RDW Std Deviation 41.9 RDW Coeff of Bel 12.5 Plt Count 322 MPV 12.6 H Immature Gran % (Auto) 0.200 Neut % (Auto) 38.1 L Lymph % (Auto) 47.6 H [place] % (Auto) 12.1 H Eos % (Auto) 1.2 Baso % (Auto) 0.8 Absolute Neuts (auto) 1.9 L Absolute Lymphs (auto) 2.33 Nucleated RBC % 0 PT Cancelled 19.8 H INR Cancelled 1.7 APTT Cancelled 41.8 H Sodium 139 Potassium 3.9 Chloride 108 H Carbon Dioxide 23.3 Anion Gap 7 BUN 6 Creatinine 0.55 L Estim Creat Clear Calc 164.48 Est GFR (MDRD) Non-Af 122 BUN/Creatinine Ratio 11.3 Glucose 75 Calcium 7.7 Total Bilirubin 0.22 AST 21 ALT 12 Alkaline Phosphatase 63 Total Protein 5.8 L Albumin 2.9 L Globulin 2.8 Albumin/Globulin Ratio 1.0 Urine Color Yellow Urine Clarity Sl. Cloudy Urine pH 6.5 Ur Specific Vincent 1.010 Urine Protein 15 H Urine Glucose (UA) Normal Urine Ketones Negative Urine Occult Blood 10 H Urine Nitrite Positive H Urine Bilirubin Negative Urine Urobilinogen Normal Ur Leukocyte Esterase Negative Urine RBC 0-5 SEEN Urine WBC 0 SEEN Ur Squamous Epith Cells 0 SEEN Urine Bacteria 3+ Urine Mucus 0 SEEN Radiography Diagnostic Testing: Clinical Impression(s) from Imaging Studies Chest X-Ray 09/04/25 15:39 IMPRESSION: No active cardiopulmonary disease. Reading Location: [place] [id number] EKG Initial EKG: Attestation: I personally reviewed and interpreted this EKG as follows: Comments: Normal sinus rhythm ventricular rate of 71 bpm Management Discussion w/another healthcare provider: Hospitalist Discharge Plan Dx/Rx/DC Orders Clinical Impression: Marfan syndrome, Seizure disorder, Encephalopathy acute, UTI (urinary tract infection), Acute hypotension, Acute dehydration Disposition Disposition: Acute Care Hospital [facility]
--- NOTE | 2025-09-04 15:56 | CT_ITS ---
PROCEDURE: ABDOMEN/PELVIS W IV CONT ONLY 09/04/2025 REASON FOR EXAM: ANOREXIA TECHNIQUE: Procedure Code: [id number] Modality: CT Procedure: ABDOMEN/PELVIS W IV CONT ONLY Coronal and Sagittal reconstruction series were provided. CONTRAST: 100 cc of Isovue 370 One or more dose reduction techniques were used (e.g., Automated exposure control, adjustment of the mA and/or kV according to patient size, use of iterative reconstruction technique. COMPARISON: None available. FINDINGS: Lung bases: Mild dependent atelectasis Liver: Normal size. No mass. Scattered hypodensities, likely representing cysts, the largest measures 1.1 cm. Gallbladder: Cholelithiasis. No gallbladder wall thickening or surrounding fat stranding. No biliary ductal dilatation. Spleen: Normal size. Pancreas: Normal size without evidence of mass surrounding inflammation or ductal dilation. Adrenals: No adrenal masses. Kidneys: Right renal cysts measuring up to 1.2 cm. No renal calculi or hydronephrosis. Bladder: Cleaning catheter in place. Diffuse bladder wall thickening may suggest superimposed cystitis. Reproductive Organs: The prostate is not enlarged. No pelvic masses. Bowel: Moderate colonic stool burden suggesting constipation. No bowel obstruction. No inflammatory changes. Appendix: Normal. Lymph nodes: Unremarkable. Vasculature: The abdominal aorta and IVC are normal. Peritoneum / Retroperitoneum: No free fluid or air. Bones: Mild degenerate changes of the visualized spine. Scattered Schmorl's nodes. No acute fractures. CT/Abdomen/Pelvis W IV Cont ONLY IMPRESSION: 1. No acute findings in the abdomen or pelvis. 2. Probable hepatic and right renal cysts. 3. Cholelithiasis with no CT evidence of acute cholecystitis. 4. Moderate colonic stool burden suggesting constipation. Reading Location: [facility]
--- NOTE | 2025-09-04 15:56 | CT_ITS ---
PROCEDURE: CT BRAIN/HEAD WITHOUT CONTRAST 09/04/2025 REASON FOR EXAM: AMS TECHNIQUE: Procedure Code: CTBR Modality: CT Procedure: BRAIN/HEAD WITHOUT CONTRAST Coronal and Sagittal reconstruction series were provided. One or more dose reduction techniques were used (e.g., Automated exposure control, adjustment of the mA and/or kV according to patient size, use of iterative reconstruction technique. RADIATION DOSE SUMMARY: CTDlvol: 44.99 mGy DLP: 846.73 mGycm COMPARISON: 04/24/2020 FINDINGS: No acute intracranial hemorrhage, extra-axial collection, mass effect or evidence of acute infarct. Ventricles and subarachnoid spaces are normal in size. Orbital contents demonstrate prior bilateral cataract surgery, and right orbital scleral banding. Atherosclerotic vascular calcifications. Intact skull base and calvarium. Minimal scattered peripheral mucosal thickening in the paranasal sinuses. Trace nonspecific fluid in the dependent left mastoid air cells. CT/Brain/Head without Contrast IMPRESSION: No acute intracranial abnormality. Reading Location: [id number]
--- OUTSIDE RECORDS SUMMARY | 2025-09-04 15:56 | XMS RPT_ITS | CCD ---
Author Organization [facility] Care Team Providers Care Sand Blaster Name Role Phone OLIVERIOWAGNER PERKINS E Unavailable Unavailable OLIVERIOWAGNER E Unavailable Unavailable TAYLOR MORENO Unavailable Unavailable OLIVERIOYENNIFER PERKINSNETH Unavailable Unavailable IMCA Unavailable Unavailable OLIVERIOYENNIFERWAGNER Unavailable Unavailable IMCA Unavailable Unavailable IMCA Unavailable Unavailable YENNIFER DURONNETH Unavailable Unavailable WAGNER DURON Unavailable Unavailable IMCA Unavailable Unavailable Saranya Casper MD Primary Care Provider Saranya Casper MD Unavailable Dr. Saranya Casper Primary Care Provider Dr. Saranya Casper Referring Provider Roof TOLL BRIDGE ATTENDANT, TOLL BRIDGE ATTENDANT-Tamia Manrique Attending Provider Dr. Phoenix Pierre Attending Provider Dr. Saranya Casper Primary Care Provider Saranya Casper MD Primary Care Provider Saranya Casper MD Unavailable Saranya Casper MD Primary Care Provider Saranya Casper MD Unavailable Dr. Saranya Casper Primary Care Provider Dr. Jorge L Ahmadi Emergency Provider Dr. Ivonne Tavares Admit Provider Dr. Ivonne Tavares Other Provider Dr. Mario Chaidez Attending Provider Dr. Mario Chaidez Other Provider Dr. Jorge L Ahmadi Referring Provider Dr. Carri Mina Attending Provider Leopoldo, Dr. Christina Other Provider Dr. Albino Allen Other Provider Dr. Jorge L Ahmadi Referring Provider [place] JEFFERSON, Saranya Primary Care Provider Saranya Casper MD Unavailable Dr. Anup Carranza Primary Care Provider Unavailab Dr. Anup Whitman Referring Provider Unavailable HARI Gregory Attending Provider Edilberto Blankenship MD Unavailable [phone] [place] JEFFERSON, Saranya Primary Care Provider Anup Carranza MD Primary Care Provider Serenity OCAMPO, Sue Ahdikari Unavailable Older CITY WEIGHMASTER.DRY CLEANING ATTENDANT, Ashley Unavailable [phone] Phyllis Khalil PA-C Unavailable Kyle Roldan Attending Unavailable Ganta, Saranya Primary Care Unavailable Ganta, Saranya Primary Care Unavailable Cathleen Gregory Attending Unavail able Dillon, Anup Referring Unavailable Patrick LEMUS, Mallory Attending Unavailable Ganta, Saranya Referring Unavailable Ganta, Saranya Primary Care Unavailable Dillon, Anup Attending Unavailable Ganta, Saranya Primary Care Unavailable Dillon, Anup Referring Unavailable Ganta, Saranya Primary Care Unavailable Cathleen Gregory Referring Unavail able Cathleen Gregory Attending Unavail able GANTA, SARANYA Attending Unavailable GANTA, SARANYA Primary Care Unavailable Medications Current Medications Medication Drug Class(es) Dates Sig (Normalized) Sig (Original) clonazePAM 0.5 mg oral tablet (20 sources) Benzodiazepine Start: 10-11-2019 take 1 tablet by mouth twice daily clonazePAM (KLONOPIN) 0.5 mg tablet Indications: Seizure disorder (HCC) Take 1 tablet by mouth twice daily for 90 days. 60 tablet 2 10/11/2019 Active Start: 01-04-2014 End: 03-22-2019 take 1 tablet by mouth twice daily clonazePAM (KLONOPIN) 0.5 mg tablet Indications: Seizure disorder (HCC) Take 1 tablet by mouth twice daily for 90 days. 60 tablet 2 10/11/2019 Active Comment on above: Take 1 tablet by silvia twice daily for 90 days. Comp Stocking,Knee,Long,Medi um misc (20 sources) Start: 11-19-2017 Comp Stocking,Knee,Long,Med ium misc Indications: Pedal edema 1 Each once daily. 1 Device 11/19/2017 Active Start: 11-19-2017 Comp Stocking, Knee,Long,Medium misc Indications: Pedal edema 1 Each once daily. 1 Device 0 11/19/2017 Active Comment on above: 1 Each once daily. ergocalciferol 1.25 mg oral capsule (20 sources) Provitamin D2 Compound Start: 12-20-19 take 1 capsule by mouth two times weekly, then take 1 capsule by mouth two times weekly ergocalciferol 50,000 unit capsule (VITAMIN D2, DRISDOL) Take 1 capsule by mouth two times a week. TO BE TAKEN ORALLY DIRECTED. Take 1 tablet by mouth twice weekly 24 capsule 5 12/19/2021 Active Comment on above: Take 1 capsule by mo [facility] two times a week. TO BE TAKEN ORALLY DIRECTED. Take 1 tablet by mouth twice weekly lactulose 667 mg/ml oral solution (3 sources) Osmotic Laxative Start: 01-07-20 23 take 20 g by mouth three times daily Lactulose Active 20 GM PO THREE TIMES A DAY 2700 January 06, 2023 12:00am levothyroxine sodium 0.075 mg oral tablet (20 sources) l-Thyroxine Start: 03-22-20 End: 06-28-20 25 take 1 tablet by mouth once daily levothyroxine (SYNTHROID) 75 mcg tablet Indications: Hypothyroidism, unspecified type Take 1 tablet by mouth once daily. daily 90 tablet 3 06/28/2024 06/28/2025 Active Start: 01-15-2018 End: 03-22-2019 Levothyroxine Discontinued P O DAILY January 15, 2018 12:54am March 22, 2019 10:37am Start: 01-15-2018 End: 03-22-2019 Levothyroxine Discontinued P O DAILY January 15, 2018 12:00am March 22, 2019 10:37am Comment on above: Take 1 tablet by silvia once daily. Take on empty stomach. For Thyroid Take 1 tablet by silvia once daily. On Wednesday take 2 tablets multivitamin tablet (20 sources) take 1 tablet by mouth once daily multivitamin tablet Take 1 tablet by mouth once daily. Active take 1 tablet by mouth once gerard y multivitamin tablet Take 1 tablet by mouth once daily. 0 Active Comment on above: Take 1 tablet by silvia th once daily. Multivitamin With Minerals (7 sources) Start: 04-24-2020 take 1 tablet by mouth once daily Multivitamin With Minerals Active 1 TABLET PO DAILY April 24, 2020 2:29pm Start: 04-24-2020 take 1 tablet by silvia th once daily Multivitamin With Minerals Active 1 TABLET PO DAILY April 24, 2020 12:00am PHENobarbital 32.4 mg oral tablet (20 sources) Start: 03-07-2023 End: 02-16-2024 PHENobarbital 32.4 mg tablet Indications: Seizure disorder (HCC) phenobarbital 32.4 mg tablet TAKE 1 TABLET TWICE DAILY 180 tablet 3 03/07/2023 02/16/2024 Active Start: 04-24-2020 take 64.8 mg by mout h once daily Phenobarbital Active 64.8 MG PO DAILY April 24, 2020 12:00am Start: 03-22-2019 End: 02-15-2023 PHENobarbital 32.4 mg tablet phenobarbital 32.4 mg tablet TAKE 1 TABLET TWICE DAILY 0 03/22/2019 02/15/2023 Discontinued Start: 01-04-2014 End: 03-22-2019 take 30 mg by mouth twice daily Phenobarbital Discontinued 30 MG PO TWICE A DAY January 04, 2014 12:00am March 22, 2019 10:38am Comment on above: phenobarbital 32.4 m g tablet TAKE 1 TABLET TWICE DAILY phenobarbital 32.4 m g tablet TAKE 1 TABLET TWICE DAILY potassium chloride 20 meq extended release oral tablet (20 sources) Start: 03-27-2024 End: 06-28-2024 take 1 tablet by mouth once daily potassium chloride 20 mEq TbER Take 1 tablet by mouth once daily. 90 tablet 3 06/28/2024 Active Start: 10-29-2021 End: 03-24-2024 take 1 tablet by mouth once daily potassium chloride 20 mEq TbER Take 1 tablet by mouth once daily. 30 tablet 5 06/04/2023 03/24/2024 Discontinued Start: 04-27-2020 End: 12-31-2022 take 20 mEq by mouth once daily Potassium Chloride Act jhon 20 MEQ PO DAILY December 31, 2022 7:36pm Comment on above: Take 1 tablet by silvia th once daily. Valproate (20 sources) Mood Stabilizer, Anti-epileptic Agent Start: 04-24-2020 take 1 tablet by mouth at bedtime Divalproex Sodium (Divalproex Sodium Er) 500 MG Tab.Er.24h Active 1500 MG PO AT BEDTIME April 24, 2020 2:29pm Start: 04-24-2020 take 1 tablet by silvia th at bedtime Divalproex Sodium (Divalproex Sodium Er) 500 MG Tab.Er.24h Active 1500 MG PO AT BEDTIME April 24, 2020 12:00am Start: 10-11-[address] (DEPAKOTE) 500 mg EC tablet Indications: Seizure disorder (HCC) Takes 3 pills in the AM and 3 pills at PM 180 tablet 11 10/11/2019 Active Start: 08-04-2017 End: 04-28-[address] (DEPAKOTE) 500 mg EC tablet Indications: Seizure disorder (HCC) 2 tablets in AM, 3 tablets in PM. 0 08/04/2017 04/28/2023 Discontinued (Duplicate Entry) Comment on above: 2 tablets in AM, 3 t ablets in PM. Takes 3 pills in the AM and 3 pills at PM Completed/Discontinued Medications Medication Drug Class(es) Dates Sig (Normalized) Sig (Original) amoxicillin 875 mg / clavulanate 125 mg oral tablet (7 sources) Penicillin-class Antibacterial Start: 04-27-2020 End: 05-04-2020 Amoxicillin-Pot Clavulanate Discontinued 1 EACH PO TWICE A DAY 14 7 April 27, 2020 12:00am May 04, 2020 12:02am atenolol 50 mg oral tablet (20 sources) beta-Adrenergic Adrienne Start: 12-02-2023 End: 12-02-2023 take 50 mg by mouth twice daily Atenolol Discontinued 50 MG PO TWICE A DAY December 02, 2023 12:00am December 02, 2023 2:51pm Start: 01-15-2018 End: 04-28-2023 take 50 mg by mouth twice daily Atenolol Discontinued 50 MG PO TWICE A DAY January 15, 2018 12:00am January 06, 2023 1:55pm Comment on above: Take 1 tablet by silvia th twice daily. cephalexin 500 mg oral capsule (7 sources) Cephalosporin Antibacterial Start: 9 End: 0 take 500 mg by mouth every twelve hours Cephalexin Discontinued 500 MG PO EVERY 12 HOURS June 22, 2019 12:00am October 05, 2019 3:12pm doxycycline hyclate 100 mg oral capsule (3 sources) Tetracycline-class Drug Start: 3 End: 4 take 100 mg by mouth twice daily Doxycycline Hyclate Discontinued 100 MG PO TWICE A DAY January 06, 2023 12:00am December 02, 2023 2:51pm Problems Active Problems Problem Classification Problem Date Documented Da te Episodic/Chronic Administrative/social admission (2 sources) Walking disability; Translations: [Other reduced mobility] 04-21-2023 Episodic Aortic; peripheral; and visceral artery aneurysms (20 sources) Aortic root dilatation; Translations: [Thoracic aortic ectasia] Onset: 01-29-2010 Chronic Bacterial infection; unspecified site (11 sources) Bacteremia; Translations: [Bacteremia] 12-31-2022 Episodic Developmental disorders (20 sources) Intellectual disability; Translations: [Unspecified intellectual disabilities] Onset: 01-02-2010 09-08-2021 Chronic Disorders of lipid metabolism (1 source) Hyperlipidemia; Translations: [Hyperlipidemia, unspecified] 04-28-2023 Chronic Epilepsy; convulsions (20 sources) Seizure disorder; Translations: [Epilepsy, unspecified, not intractable, without status epilepticus] Onset: 01-02-2010 Chronic Essential hypertension (20 sources) Essential hypertension; Translations: [Essential (primary) hypertension] Onset: 11-05-2015 Chronic Fluid and electrolyte disorders (4 sources) Hypokalemia; Translations: [Hypokalemia] 01-03-2023 Episodic Hyperplasia of prostate (20 sources) Large prostate ; Translations: [Benign prostatic hyperplasia without lower urinary tract symptoms] Onset: 01-02-2010 01-02-2010 Chronic Mycoses (1 source) Onychomycosis; Translations: [Tinea unguium] 09-29-2024 Episodic Nutritional deficiencies (4 sources) Vitamin D deficiency; Translations: [Vitamin D deficiency, unspecified] Onset: 01-12-2025 Chronic Nutritional deficiencies (2 sources) Cobalamin deficiency; Translations: [Deficiency of other specified B group vitamins] Episodic Open wounds of head; neck; and trunk (7 sources) Scalp laceration; Translations: [Laceration without foreign body of scalp, initial encounter] 01-16-2018 Episodic Other aftercare (1 source) Post-discharge follow-up; Translations: [Encounter for follow-up examination after completed treatment for conditions other than malignant neoplasm] 03-06-2023 Episodic Other congenital anomalies (3 sources) Marfan's syndrome, unspecified; Translations: [Marfan syndrome] Onset: 12-07-2017 12-02-2023 Chronic Other congenital anomalies (20 sources) Marfan's syndrome; Translations: [Marfan's syndrome, unspecified] Onset: 01-03-2010 Chronic Other congenital anomalies (7 sources) Dilatation of aortic root co-occurrent and due to Marfan syndrome; Translations: [Marfan's syndrome with aortic dilation] 04-24-2020 Chronic Other congenital anomalies (4 sources) Marfan's syndrome with aortic dilation; Translations: [Marfan syndrome] Onset: 03-30-2024 Chronic Other diseases of bladder and urethra (20 sources) Bladder muscle dysfunction - underactive; 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, not elsewhere classified] Onset: 12-26-2013 12-26-2013 Chronic Other eye disorders (3 sources) Disorder of lens; Translations: [Unspecified disorder of lens] 01-03-2023 Chronic Other eye disorders (2 sources) Unspecified disorder of lens; Translations: [Other disorders of lens] 01-07-2023 Chronic Other infections; including parasitic (1 source) Infestation by bed bug; Translations: [Other specified infestations] 04-28-2023 Episodic Other injuries and conditions due to external causes (7 sources) Closed injury of head; Translations: [Unspecified injury of head, initial encounter] 01-16-2018 Episodic Other nervous system disorders (3 sources) Metabolic encephalopathy; Translations: [Metabolic encephalopathy] 01-01-2023 Chronic Other nervous system disorders (2 sources) Metabolic encephalopathy; Translations: [Metabolic encephalopathy] 01-07-2023 Chronic Other nutritional; endocrine; and metabolic disorders (1 source) Weight increased; Translations: [Abnormal weight gain] 01-12-2025 Episodic Other skin disorders (1 source) Disorder of nail; Translations: [Nail disorder, unspecified] 09-29-2024 Episodic Septicemia (except in labor) (7 sources) Septic shock; Translations: [Sepsis, unspecified organism] 12-31-2022 Episodic Thyroid disorders (20 sources) Hypothyroidism; Translations: [Hypothyroidism, unspecified] Onset: 03-21-2018 Chronic Unclassified (1 source) Unknown / UNK(Unknown) Onset: 12-07-2017 Unclassified (1 source) Thoracic aortic aneurysm without rupture, unspecified part; Translations: [Thoracic aortic aneurysm without rupture, unspecified part] Onset: 01-12-2025 Past or Other Problems Problem Classification Problem Date Documented Da te Episodic/Chronic Calculus of urinary tract (13 sources) Kidney stone; Translations: [Calculus of kidney] Onset: 07-30-2005 Resolved: 01-02-2010 01-02-2010 Episodic Malaise and fatigue (4 sources) Asthenia; Translations: [Other malaise] Onset: 01-12-2025 04-21-2023 Episodic Other nutritional; endocrine; and metabolic disorders (1 source) Abnormal weight gain; Translations: [Weight gain] Onset: 01-12-2025 Episodic Residual codes; unclassified (20 sources) Edema of foot; Translations: [Localized edema] Onset: 11-05-2015 11-05-2015 Episodic Unclassified (1 source) Marfan's syndrome, unspecified Onset: 12-07-2017 Urinary tract infections (20 sources) Urinary tract infectious disease; Translations: [Urinary tract infection, site not specified] Onset: 07-30-2005 Resolved: 01-02-2010 06-23-2019 Episodic Results Test Name Value Interpretation Reference Range [facility] GEORGES COTTO ([id number]) 1975 M Date Time Provider Department 06/07/25 SARANYA CASPER INTMWS During your visit today, we recorded the following information about you: Jenn Koch 06/07/2025 2:39 PM Signed Nicole from [facility] calling in on behalf of patient to request his medications get transferred over to [facility]. Please review and advise. Jenn Koch June 07, 2025 2:39 PM Saranya Casper MD 06/07/2025 6:19 PM Signed Refilled as requested Regards, Saranya Casper MD Allergies As of Date: 06/07/2025 (No Known Allergies) Date Reviewed: 01/12/2025 Reviewed by: Dolores Luna LPN - Fully Assessed Reason for Visit: Medication Question [1478] Visit Diagnosis:Hypothyroidism, unspecified type [E03.9] Order(s):levothyroxine (SYNTHROID) 75 mcg tabletTake 1 tablet by mouth once daily. dailyDisp: 90 tabletRfl: 3 potassium chloride 20 mEq TbERTake 1 tablet by mouth once daily.Disp: 90 tabletRfl: 3 Prescriptions as of 06/08/2025 - levothyroxine (SYNTHROID) 75 mcg tablet Take 1 tablet by mouth once daily. daily - potassium chloride 20 mEq TbER Take 1 tablet by mouth once daily. - PHENobarbital 32.4 mg tablet Take 1 tablet by mouth two times a day. - ergocalciferol 50,000 unit capsule (VITAMIN D2, DRISDOL) Take 1 capsule by mouth two times a week. TO BE TAKEN ORALLY DIRECTED. Take 1 tablet by mouth twice weekly - divalproex DR (DEPAKOTE) 500 mg EC tablet Takes 3 pills in the AM and 3 pills at PM - clonazePAM (KLONOPIN) 0.5 mg tablet Take 1 tablet by mouth twice daily for 90 days. - Comp Stocking,Knee,Long,Medium misc 1 Each once daily. - multivitamin tablet Take 1 tablet by mouth once daily. Problem List As Of Date 06/07/2025 Noted Resolved Calculus of Kidney [N20.0] 07/30/2005 01/02/2010 Urinary Tract Infection, Site not Specified [N3*07/30/2005 01/02/2010 Prostate Enlargement [N40.0] 01/02/2010 Intellectual disability [F79] 01/02/2010 Seizure Disorder [G40.909] 01/02/2010 Marfan's syndrome [Q87.40] 01/03/2010 Aortic Root Dilatation [I77.810] 01/29/2010 Bladder atony [N31.2] 12/26/2013 Pedal edema [R60.0] 11/05/2015 Essential hypertension [I10] 11/05/2015 Hypothyroidism [E03.9] 03/21/2018 Prescriptions ordered this encounter Disp Refills Start End LEVOTHYROXINE 75 MCG TABLET 90 t* 3 06/07/2025 06/07/2026 Route: PO Sig: Take 1 tablet by mouth once daily. daily POTASSIUM CHLORIDE ER 20 MEQ TABLET,* 90 t* 3 06/07/2025 Route: PO Sig: Take 1 tablet by mouth once daily. Medications Discontinued During This Encounter Prescriptions - levothyroxine (SYNTHROID) 75 mcg tablet (Discontinued) Take 1 tablet by mouth once daily. daily - potassium chloride 20 mEq TbER (Discontinued) Take 1 tablet by mouth once daily. Encounter Status:Closed by CAMERON BEAN on 06/08/25 [facility] CNOVon 01-12-2025 CNOV Office Visit (INTMWS ) GEORGES COTTO ([id number]) 1975 M Date Time Provider Department 01/12/25 1:00 PM SARANYA CASPER INTMWS During your visit today, we recorded the following information about you: Pulse Respiration Blood pressure Weight 97/minute 16/minute 106/79 81.6 kg Height 1.88 m Saranya Casper MD 01/12/2025 1:30 PM Signed We discussed your overall health and care plan: - Your seizure disorder is well-managed, and you have not had any seizures since your last visit. Please continue taking your seizure medication as prescribed. - Continue taking your thyroid medication daily. It is important to take it on an empty stomach and wait at least 30 minutes before eating. If you have difficulty with this, let us know. - Continue taking your vitamin D supplement as prescribed. We discussed your mobility and activity: - You are able to stand and walk but have some balance issues. Please try to move your legs up and down during the day to maintain flexibility and prevent stiffness. - Use a ball or similar object to squeeze with your hands to help maintain hand strength. We discussed your hygiene and grooming: - Your nails need regular trimming. To make this easier, soak your hands in warm water for 10-15 minutes to soften the nails and clean them. - Continue using wipes for cleaning as needed. If possible, have assistance for baths or showers to ensure thorough hygiene. We discussed your skin: - You have been scratching yourself frequently, which has caused best on your skin. To help reduce this, keep your nails trimmed and clean. If the scratching persists or worsens, let us know. We discussed your upcoming care: - I will see you again in 6 months. At that time, we will need to check your blood work. This does not need to be fasting. You can have this done at the clinic downstairs or inquire if home health services can assist with drawing blood at home. Please let us know if you have any questions or concerns before your next visit. Saranya Casper MD 01/12/2025 1:43 PM Signed Reason for Visit Follow up HPI Georges is a 49-year-old male with a history of seizure disorder, intellectual disability, and Marfan syndrome, presenting for a physical exam, accompanied by his mother, who is providing history on his behalf. Georges has a history of Marfan syndrome with multiple complications, including a troponotic aneurysm, which he and his family decided not to pursue treatment for. He also has a history of seizure disorder, for which he is taking medication, and has not had any seizures since his last visit. He is also taking phenobarbital, thyroid medication, and vitamin D. Georges is reportedly doing well at home, with no recent rashes or infections. He is eating well, but has decreased mobility due to balance issues. He is able to stand and walk, but has difficulty with stairs and requires assistance at times. He spends most of his time sitting on his bed and watching TV, and uses a wheelchair for longer distances. He has a portable toilet in his room for nighttime use, and is able to use the regular toilet during the day with assistance. He is able to urinate independently, but requires assistance with bowel movements and hygiene. Georges enjoys watching TV, listening to music, and singing along to his favorite songs. He is able to communicate his needs and preferences, and is generally happy and content. He is compliant with his medication regimen, with occasional reminders from his mother. He has not had any recent issues with his thyroid medication, and his blood pressure is reportedly stable. Social History Tobacco Use Smoking status: Never Smokeless tobacco: Never Substance Use Topics Alcohol use: No Drug use: No Past medical history, appointments, medications, allergies reviewed. Pertinent Lab/Diagnostic Studies are reviewed and discussed today Current Outpatient Medications: PHENobarbital 32.4 mg tablet levothyroxine (SYNTHROID) 75 mcg tablet potassium chloride [address] (DEPAKOTE) 500 mg EC tablet clonazePAM (KLONOPIN) 0.5 mg tablet Comp Stocking,Knee,Long,Medium misc multivitamin tablet ergocalciferol 50,000 unit capsule (VITAMIN D2, DRISDOL) Health Maintenance Depression Screening Anxiety Screening Hepatitis B Vaccine(1 of - 19+ 3-dose series) Colorectal Cancer Screening Covid-19 Vaccine(2023- season)@ Review Of Systems Genitourinary: (+) nocturnal incontinence Musculoskeletal: (+) difficulty ambulating Skin: (+) pruritus, (-) rash Neurological: (+) balance problems, (-) seizures Physical Exam BP 106/79 Pulse 97 Resp 16 Ht 188 cm (6' 2) Wt 81.6 kg (180 lb) BMI 23.11 kg/m? GENERAL: NAD, alert and oriented SKIN: Multiple scratch best noted on back and face. HEAD: normocephalic EYES: PERRLA, EOMI, conj (more content not included)... Normal [facility] Mitzy 12-13-2024 [facility] Telephone (INTMWS) GEORGES COTTO ([id number]) 1975 M Date Time Provider Department 12/13/24 SARANYA CASPER During your visit today, we recorded the following information about you: Marion Velez RN 12/13/2024 10:08 AM Signed Manda calling with [facility]. They have pt's referral and requesting further information. Faxed as requested to [phone]. Marion Velez RN Allergies As of Date: 12/13/2024 (No Known Allergies) Date Reviewed: 05/30/2024 Reviewed by: Sue Bedoya MA - Fully Assessed Reason for Visit: Patient Request [[id number]] Prescriptions as of 12/13/2024 - levothyroxine (SYNTHROID) 75 mcg tablet Take 1 tablet by mouth once daily. daily - potassium chloride 20 mEq TbER Take 1 tablet by mouth once daily. - ergocalciferol 50,000 unit capsule (VITAMIN D2, DRISDOL) Take 1 capsule by mouth two times a week. TO BE TAKEN ORALLY DIRECTED. Take 1 tablet by mouth twice weekly - divalproex DR (DEPAKOTE) 500 mg EC tablet Takes 3 pills in the AM and 3 pills at PM - clonazePAM (KLONOPIN) 0.5 mg tablet Take 1 tablet by mouth twice daily for 90 days. - Comp Stocking,Knee,Long,Medium misc 1 Each once daily. - multivitamin tablet Take 1 tablet by mouth once daily. Problem List As Of Date 12/13/2024 Noted Resolved Calculus of Kidney [N20.0] 07/30/2005 01/02/2010 Urinary Tract Infection, Site not Specified [N3*07/30/2005 01/02/2010 Prostate Enlargement [N40.0] 01/02/2010 Intellectual disability [F79] 01/02/2010 Seizure Disorder [G40.909] 01/02/2010 Marfan's syndrome [Q87.40] 01/03/2010 Aortic Root Dilatation [I77.810] 01/29/2010 Bladder atony [N31.2] 12/26/2013 Pedal edema [R60.0] 11/05/2015 Essential hypertension [I10] 11/05/2015 Hypothyroidism [E03.9] 03/21/2018 Encounter Status:Closed by MRAION VELEZ on 12/13/24 [facility] Telephone (INTMWS) KIRITGEORGES ([id number]) 1975 M Date Time Provider Department 12/13/24 SARANYA CASPER INTMWS During your visit today, we recorded the following information about you: Cameron Bean, RN 12/13/2024 2:30 PM Signed Deysi from [facility] calling in as she states she just had a visit with pt and his guardian who is his mother Jacki. Deysi states that Jacki would like to switch to a pharmacy with pre packaged medications. Deysi asking if provider can refer them to [facility]. Explained that Deysi would be able to call [facility] and have pt's scripts sent to them. She states she will go ahead and do that. Called to speak with pt and mother Jacki answers the phone. She attempted to get pt on the phone to speak with nurse but pt would not talk and mother states he doesn't know his birthday. Note in chart. Asked Jacki if she wants to change pharmacies to [facility] which she confirmed. Also she is pt's guardian and does have paperwork noting that. She will bring that with her to the next appointment. Allergies As of Date: 12/13/2024 (No Known Allergies) Date Reviewed: 05/30/2024 Reviewed by: Sue Bedoya MA - Fully Assessed Reason for Visit: Pharmacy change request [Other] Cmt: From [facility] Visit Diagnosis:Seizure Disorder [G40.909] Prescriptions as of 12/13/2024 - levothyroxine (SYNTHROID) 75 mcg tablet Take 1 tablet by mouth once daily. daily - potassium chloride 20 mEq TbER Take 1 tablet by mouth once daily. - ergocalciferol 50,000 unit capsule (VITAMIN D2, DRISDOL) Take 1 capsule by mouth two times a week. TO BE TAKEN ORALLY DIRECTED. Take 1 tablet by mouth twice weekly - divalproex DR (DEPAKOTE) 500 mg EC tablet Takes 3 pills in the AM and 3 pills at PM - clonazePAM (KLONOPIN) 0.5 mg tablet Take 1 tablet by mouth twice daily for 90 days. - Comp Stocking,Knee,Long,Medium misc 1 Each once daily. - multivitamin tablet Take 1 tablet by mouth once daily. Problem List As Of Date 12/13/2024 Noted Resolved Calculus of Kidney [N20.0] 07/30/2005 01/02/2010 Urinary Tract Infection, Site not Specified [N3*07/30/2005 01/02/2010 Prostate Enlargement [N40.0] 01/02/2010 Intellectual disability [F79] 01/02/2010 Seizure Disorder [G40.909] 01/02/2010 Marfan's syndrome [Q87.40] 01/03/2010 Aortic Root Dilatation [I77.810] 01/29/2010 Bladder atony [N31.2] 12/26/2013 Pedal edema [R60.0] 11/05/2015 Essential hypertension [I10] 11/05/2015 Hypothyroidism [E03.9] 03/21/2018 Encounter Status:Closed by CAMERON BEAN on 12/13/24 [facility] Mitzy 09-27-2024 [facility] Telephone (INTMWS) GEORGES COTTO ([id number]) 1975 M Date Time Provider Department 09/27/24 SARANYA CASPER INTWS During your visit today, we recorded the following information about you: Elizabeth Godfrey LPN 09/27/2024 4:03 PM Signed Deysi Harris, briefcase sewer with [facility] calling to let you know, pt's mother has requested a referral to [facility] has been found and they need the followin)referral to [facility] 2)face sheet 3) last OV from Dr. Casper (May) 4)ICD codes need to be on the referral L60.8 5)fax number [phone] Please advise Deysi when this has been done. TALYA Hurt Chitra, MD 09/28/2024 8:04 AM Signed Can we know what exactly is the concern of the mother with regards to the toes? Or the reasons she wants podiatry to see the patient? I think most likely it is onychomycosis but she may have other concerns, Also, where is the face sheet for the patient? Please get that for me to fill Thank you Regards, Elizabeth Regalado MD, LPN 09/28/2024 9:51 AM Signed Spoke with mother and she reports, the concerns are the same onychomycosis and also the DX L60.8 other nail disorders. TALYA Hurt Mary, LPN 09/28/2024 10:09 AM Signed Facesheet printed and forwarded to Dr London Elam LPN September 28, 2024 10:07 AM Saranya Casper MD 09/29/2024 6:11 AM Signed Referral is placed, in our system, please print. Thank you Regards, Sally Chen MD, LPN 09/29/2024 11:23 AM Addendum Order, facesheet and JUAN JOSE faxed to [facility] Called and left update message on Voicemail for Deysi with [facility], that order has been faxed. Sally Elam LPN September 29, 2024 10:57 AM Allergies As of Date: 09/27/2024 (No Known Allergies) Date Reviewed: 05/30/2024 Reviewed by: Sue Bedoya MA - Fully Assessed Reason for Visit: Referral Request [124] Primary Visit Diagnosis:Onychomycosis [B35.1] Other Visit Diagnosis:Nail disorder, unspecified [L60.9] Order(s):CONSULT TO PODIATRY [9034] Order #: [id number]: 1 FUTURE Prescriptions as of 09/29/2024 - levothyroxine (SYNTHROID) 75 mcg tablet Take 1 tablet by mouth once daily. daily - potassium chloride 20 mEq TbER Take 1 tablet by mouth once daily. - ergocalciferol 50,000 unit capsule (VITAMIN D2, DRISDOL) Take 1 capsule by mouth two times a week. TO BE TAKEN ORALLY DIRECTED. Take 1 tablet by mouth twice weekly - divalproex DR (DEPAKOTE) 500 mg EC tablet Takes 3 pills in the AM and 3 pills at PM - clonazePAM (KLONOPIN) 0.5 mg tablet Take 1 tablet by mouth twice daily for 90 days. - Comp Stocking,Knee,Long,Medium misc 1 Each once daily. - multivitamin tablet Take 1 tablet by mouth once daily. Problem List As Of Date 09/27/2024 Noted Resolved Calculus of Kidney [N20.0] 07/30/2005 01/02/2010 Urinary Tract Infection, Site not Specified [N3*07/30/2005 01/02/2010 Prostate Enlargement [N40.0] 01/02/2010 Intellectual disability [F79] 01/02/2010 Seizure Disorder [G40.909] 01/02/2010 Marfan's syndrome [Q87.40] 01/03/2010 Aortic Root Dilatation [I77.810] 01/29/2010 Bladder atony [N31.2] 12/26/2013 Pedal edema [R60.0] 11/05/2015 Essential hypertension [I10] 11/05/2015 Hypothyroidism [E03.9] 03/21/2018 Encounter Status:Closed by SALLY ELAM on 09/29/24 Normal [facility] L3700.3000on 05-24-2024 PHENobarbital [Mass/Vol] 17 ug/mL Normal 15-40 [facility] Comment on above: Result Comment: Dete ction Limit = 3 Performed at: - [facility] [id number] Freight Sales Broker: Colin Duran PhD, Phone: [phone] Performed By: #### L 500.4050, L501.8100, L3700.3000, L100.0100 #### [facility] [address] [place], [address] CBC W/Diff, Automatedon 09-0 9-4 Absolute Lymph 2.81 X10 3/uL Normal 0.83-4.51 [facility] Comment on above: Performed By: #### L 500.4050, L501.8100, L3700.3000, L100.0100 #### [facility] [address] [place], [address] Absolute Neut 2.9 X10 3/uL Normal 2.0-7.7 [facility] Comment on above: Performed By: #### L 500.4050, L501.8100, L3700.3000, L100.0100 #### [facility] [address] [place], [address] Basophils/100 WBC (Bld) 0.6 % Normal 0-1 [facility] Comment on above: Performed By: #### L 500.4050, L501.8100, L3700.3000, L100.0100 #### [facility] [address] [place], [address] Eosinophils/100 WBC (Bld) 7.3 % High 0-5 [facility] Comment on above: Performed By: #### L 500.4050, L501.8100, L3700.3000, L100.0100 #### [facility] [address] [place], [address] Erythrocyte distribution width (RBC) [Ratio] 12.9 % Normal 11.6-14.6 [facility] Comment on above: Performed By: #### L 500.4050, L501.8100, L3700.3000, L100.0100 #### [facility] [address] [place], [address] Hematocrit (Bld) [Volume fraction] 42.7 % Normal 40-54 [facility] Comment on above: Performed By: #### L 500.4050, L501.8100, L3700.3000, L100.0100 #### [facility] [address] [place], [address] Hemoglobin (Bld) [Mass/Vol] 14.4 g/dL Normal 13.0-16.5 [facility] Comment on above: Performed By: #### L 500.4050, L501.8100, L3700.3000, L100.0100 #### [facility] [address] [place], [address] IG% 0.400 Normal 0.0-0.9 [facility] Comment on above: Result Comment: IG% - Immature Granulocytes (promyelocytes, myelocytes and metamyelocytes) > 1% indicates that a LEFT SHIFT is Present. Performed By: #### L 500.4050, L501.8100, L3700.3000, L100.0100 #### [facility] [address] [place], [address] Lymphocytes/100 WBC (Bld) 39.5 % Normal 19-41 [facility] Comment on above: Performed By: #### L 500.4050, L501.8100, L3700.3000, L100.0100 #### [facility] [address] [place], [address] MCH (RBC) [Entitic mass] 31.6 pg Normal 27.0-32.0 [facility] Comment on above: Performed By: #### L 500.4050, L501.8100, L3700.3000, L100.0100 #### [facility] [address] [place], [address] MCHC (RBC) [Mass/Vol] 33.7 g/dL Normal 32-36 [facility] Comment on above: Performed By: #### L 500.4050, L501.8100, L3700.3000, L100.0100 #### [facility] [address] [place], [address] MCV (RBC) [Entitic vol] 93.6 fL Normal 80-94 [facility] Comment on above: Performed By: #### L 500.4050, L501.8100, L3700.3000, L100.0100 #### [facility] [address] [place], [address] Monocytes/100 WBC (Bld) 11.1 % High 0-10 [facility] Comment on above: Performed By: #### L 500.4050, L501.8100, L3700.3000, L100.0100 #### [facility] [address] [place], [address] Neutrophils/100 WBC (Bld) 41.1 % Low 47-70 [facility] Comment on above: Performed By: #### L 500.4050, L501.8100, L3700.3000, L100.0100 #### [facility] [address] [place], [address] Nucleated RBC (Bld) [#/Vol] 0 10*3/uL Normal 0-5 [facility] Comment on above: Performed By: #### L 500.4050, L501.8100, L3700.3000, L100.0100 #### [facility] [address] [place], [address] Platelet mean volume (Bld) [Entitic vol] 10.5 fL Normal 6.2-12.0 [facility] Comment on above: Performed By: #### L 500.4050, L501.8100, L3700.3000, L100.0100 #### [facility] [address] [place], [address] Platelets (Bld) [#/Vol] 196 10*3/uL Normal 150-450 [facility] Comment on above: Performed By: #### L 500.4050, L501.8100, L3700.3000, L100.0100 #### [facility] [address] [place], [address] RBC (Bld) [#/Vol] 4.56 10*6/uL Low 4.6-6.2 [facility] Comment on above: Performed By: #### L 500.4050, L501.8100, L3700.3000, L100.0100 #### [facility] [address] [place], [address] RDW SD 44.5 fl High 35.1-43.9 [facility] Comment on above: Performed By: #### L 500.4050, L501.8100, L3700.3000, L100.0100 #### [facility] [address] [place], [address] WBC (Bld) [#/Vol] 7.1 10*3/uL Normal 4.4-11.0 [facility] Comment on above: Performed By: #### L 500.4050, L501.8100, L3700.3000, L100.0100 #### [facility] [address] [place], [address] Comprehensive Metabolic Prof [facility] 05-22-2024 Albumin [Mass/Vol] 3.0 g/dL Low 3.2-5.0 [facility] Comment on above: Performed By: #### L 500.4050, L501.8100, L3700.3000, L100.0100 #### [facility] [address] [place], [address] Albumin/Globulin [Mass ratio] 0.6 {ratio} Low 0.9-2.4 [facility] Comment on above: Performed By: #### L 500.4050, L501.8100, L3700.3000, L100.0100 #### [facility] [address] [place], [address] ALK P 72 U/L Normal 45-117 [facility] Comment on above: Performed By: #### L 500.4050, L501.8100, L3700.3000, L100.0100 #### [facility] [address] [place], [address] ALT [Catalytic activity/Vol] 14 U/L Low 16-61 [facility] Comment on above: Performed By: #### L 500.4050, L501.8100, L3700.3000, L100.0100 #### [facility] [address] [place], [address] AST [Catalytic activity/Vol] 11 U/L Low 15-37 [facility] Comment on above: Performed By: #### L 500.4050, L501.8100, L3700.3000, L100.0100 #### [facility] [address] [place], [address] Bilirubin [Mass/Vol] 0.20 mg/dL Normal 0.20-1.00 [facility] Comment on above: Result Comment: For patients on eltrombopag therapy, use of Dimension [place] TBIL is not recommended. Performed By: #### L 500.4050, L501.8100, L3700.3000, L100.0100 #### [facility] [address] [place], [address] BUN/CRE 14.4 RATIO Normal 10-20 [facility] Comment on above: Performed By: #### L 500.4050, L501.8100, L3700.3000, L100.0100 #### [facility] [address] [place], [address] CA,Total 8.7 mg/dL Normal 8.5-10.1 [facility] Comment on above: Performed By: #### L 500.4050, L501.8100, L3700.3000, L100.0100 #### [facility] [address] [place], [address] Chloride [Moles/Vol] 106 mmol/L Normal 98-107 [facility] Comment on above: Performed By: #### L 500.4050, L501.8100, L3700.3000, L100.0100 #### [facility] [address] [place], [address] CO2 [Moles/Vol] 23.0 mmol/L Normal 21.0-32.0 [facility] Comment on above: Performed By: #### L 500.4050, L501.8100, L3700.3000, L100.0100 #### [facility] [address] [place], [address] Creatinine [Mass/Vol] 0.90 mg/dL Normal 0.70-1.30 [facility] Comment on above: Result Comment: The validity of the calculated GFR GFRAA in patients over 70 years has not been determined. Clinical correlation is essential. Performed By: #### L 500.4050, L501.8100, L3700.3000, L100.0100 #### [facility] [address] [place], [address] EST GFR - AA 116 mL/min Normal >60 [facility] Comment on above: Result Comment: Afri can Vietnamese GFR Calc Performed By: #### L 500.4050, L501.8100, L3700.3000, L100.0100 #### [facility] [address] [place], [address] GAP 7 Normal 5-15 [facility] Comment on above: Performed By: #### L 500.4050, L501.8100, L3700.3000, L100.0100 #### [facility] [address] [place], [address] GFR/1.73 sq M.predicted among non-blacks MDRD (S/P/Bld) [Vol rate/Area] 96 mL/min/{1.73_m2} Normal >60 [facility] Comment on above: Result Comment: Non- GFR Calc Performed By: #### L 500.4050, L501.8100, L3700.3000, L100.0100 #### [facility] [address] [place], [address] Globulin (S) [Mass/Vol] 4.7 g/dL High 2.2-4.2 [facility] Comment on above: Performed By: #### L 500.4050, L501.8100, L3700.3000, L100.0100 #### [facility] [address] [place], [address] Glucose [Mass/Vol] 118 mg/dL High 74-106 [facility] Comment on above: Result Comment: Fast ing Glucose result from 100 to 125 mg/dL suggests IMPAIRED HOMEOSTASIS per A.D.A. criteria. Performed By: #### L 500.4050, L501.8100, L3700.3000, L100.0100 #### [facility] [address] [place], [address] Potassium [Moles/Vol] 3.8 mmol/L Normal 3.5-5.1 [facility] Comment on above: Performed By: #### L 500.4050, L501.8100, L3700.3000, L100.0100 #### [facility] [address] [place], [address] Sodium [Moles/Vol] 136 mmol/L Normal 136-145 [facility] Comment on above: Performed By: #### L 500.4050, L501.8100, L3700.3000, L100.0100 #### [facility] [address] [place], [address] T PROT 7.7 g/dL Normal 6.4-8.2 [facility] Comment on above: Performed By: #### L 500.4050, L501.8100, L3700.3000, L100.0100 #### [facility] [address] [place], [address] Urea nitrogen [Mass/Vol] 13 mg/dL Normal 7-18 [facility] Comment on above: Performed By: #### L 500.4050, L501.8100, L3700.3000, L100.0100 #### [facility] [address] [place], [address] Valproic Acid (Depakene) Lev magda 05-22-2024 VALPROIC ACID 110 ug/mL High 50-100 [facility] Comment on above: Performed By: #### L 500.4050, L501.8100, L3700.3000, L100.0100 #### [facility] [address] [place], [address] Echo Completeon 03-17-2024 Echo Complete [facility] [address] [place] [address] Echo Complete 03/17/24 1306 MR#: [id number] Acct: [id number] Name: GEORGES COTTO Rep #: [id number] : 1975 48 From: Kyle Roldan MD Attending Dr: HARI Chang Status: REG CLI Ordering Dr: Cathleen Vaughn Date: 02/03 Location: CVS Sex: M C Admitted: Reason For Study: Marfans w/AO Dilation Procedure This was a 2D Doppler, Color Flow transthoracic echocardiogram. Techncially difficult due to patient condition. Exam performed in department. Left Ventricle Normal left ventricle. Left ventricular systolic function is normal. The left ventricular ejection fraction is 55 %. No regional wall motion abnormalities noted. Right Ventricle Normal RV size. Normal systolic function. Atria Normal left atrium. Normal right atrium. Mitral Valve Bileaflet diffuse mitral valve thickening. Mild mitral valve prolapse. Tricuspid Valve Normal tricuspid valve. Mild tricuspid valve insufficiency. Aortic Valve Trisinus/trileaflet aortic valve. Mild (1+) aortic valve insufficiency. Great Vessels Moderately dilated aortic root. Ascending aorta measuring 5.0 cm. Compared to the previous there is mild increase in the dimension. The pulmonary artery is normal size. Normal inferior vena cava. Pericardium/Pleural No pericardial effusion. MMode/2D Measurements Calculations LVIDd: 4.9 cm IVSd: 0.81 cm Ao root diam: 4.9 cm LVIDs: 4.0 cm LVPWd: 0.75 cm RVDd: 3.4 cm FS: 18.1 % TAPSE: 1.5 cm Time Measurements MV dec time: 0.33 sec Doppler Measurements Calculations MV E max norma: 47.9 cm/sec Lat Peak E' Norma: 8.6 cm/sec Med Peak E' Norma: 8.4 cm/sec MV A max norma: 74.5 cm/sec E/E' lat: 5.6 E/E' med: 5.7 MV E/A: 0.64 MV V2 max: 72.4 cm/sec MV P1/2t max norma: 61.2 cm/sec Ao V2 max: 86.1 cm/sec MV max P.1 mmHg MV P1/2t: 122.8 msec Ao max P.0 mmHg MV V2 mean: 42.0 cm/sec MV dec slope: 146.0 cm/sec2 MV mean P.81 mmHg MV V2 VTI: 25.3 cm MVA(P1/2t): 1.8 cm2 AI max norma: 380.7 cm/sec LV V1 max: 70.1 cm/sec MR max norma: 485.6 cm/sec AI max P.0 mmHg LV V1 max P.0 mmHg MR max P.3 mmHg AI dec slope: 181.9 cm/sec2 MR mean norma: 395.3 cm/sec AI P1/2t: 613.1 msec MR mean P.6 mmHg MR VTI: 151.9 cm PA V2 max: 79.7 cm/sec TR max norma: 181.3 cm/sec PA max PG (full): 1.1 mmHg TR max P.2 mmHg ECHO/Echo Complete Interpretation Summary Ascending aorta measuring 5.0 cm. Compared to the previous there is mild increase in the dimension. Normal left ventricle. Left ventricular systolic function is normal. The left ventricular ejection fraction is 55 %. Moderately dilated aortic root. Ordering Physician: Cathleen Vaughn Referring Physician: Cathleen Vaughn Performed By: Tigre Andrade RCS 03/17/241607 Date Kyle Roldan MD CC: Dr. Saranya Casper MD; HARI Chang Date Dictated: 03/17/24 1306 Date Transcribed: 03/17/241607 Reflector Driller And Deburrer: Signed Normal [facility] Absolute lymphocyte countOrd ered By: Dr. Mina on 01-07-2023 Lymphocytes Auto (Unsp spec) [#/Vol] 2.01 10*3/uL 0.83-4.51 [facility] Basophil percentageOrdered B y: Dr. Mina on 01-07-2023 Ammonia (P) [Moles/Vol] 57.0 umol/L 11-32 [facility] Basophils/100 WBC (Bld) 0.4 % 0-1 [facility] Chloride [Moles/Vol] 111 mmol/L 98-107 [facility] Eosinophils/100 WBC (Bld) 1.6 % 0-5 [facility] Glucose [Mass/Vol] 93 mg/dL 74-106 [facility] Neutrophils (Bld) [#/Vol] 3.6 10*3/uL 2.0-7.7 [facility] Neutrophils/100 WBC (Bld) 53.3 % 47-70 [facility] Potassium [Moles/Vol] 3.4 mmol/L 3.5-5.1 [facility] Sodium [Moles/Vol] 140 mmol/L 136-145 [facility] WBC (Bld) [#/Vol] 6.7 10*3/uL 4.4-11.0 [facility] Blood erythrocytes count (nu mber/volume)Ordered By: Dr. Mina on 01-07-2023 RBC (Bld) [#/Vol] 3.21 10*6/uL 4.6-6.2 [facility] Blood hemoglobin measurement (mass/volume)Ordered By: Dr. Mina on 01-07-2023 Hemoglobin (Bld) [Mass/Vol] 10.0 g/dL 13.0-16.5 [facility] Blood lymphocytes/100 leukoc ytesOrdered By: Dr. Mina on 01-07-2023 Lymphocytes/100 WBC (Bld) 29.8 % 19-41 [facility] Blood monocytes/100 leukocyt esOrdered By: Dr. Mina on 01-07-2023 Monocytes/100 WBC (Bld) 14.2 % 0-10 [facility] Blood platelet mean volumeOr dered By: Dr. Mina on 01-07-2023 Platelet mean volume (Bld) [Entitic vol] 8.8 fL 6.2-12.0 [facility] Determination of erythrocyte mean corpuscular volume (MCV)Ordered By: Dr. Mina on 01-07-2023 MCV (RBC) [Entitic vol] 94.4 fL 80-94 [facility] Hematocrit Auto (Bld) [Volum e fraction]Ordered By: Dr. Mina on 01-07-2023 Hematocrit (Bld) [Volume fraction] 30.3 % 40-54 [facility] - Chemistry and C hemistry - challengeOrdered By: Dr. Mina on 01-07-2023 CO2 [Moles/Vol] 27.0 mmol/L 21.0-32.0 [facility] Urea nitrogen/Creatinine [Mass ratio] 7.5 mg/mg 10-20 [facility] - Hematology and Cell countsOrdered By: Dr. Mina on 01-07-2023 Erythrocyte distribution width (RBC) [Entitic vol] 42.5 fL 35.1-43.9 [facility] Erythrocyte distribution width (RBC) [Ratio] 12.3 % 11.6-14.6 [facility] Immature granulocytes/100 WBC (Bld) 0.700 % 0.0-0.9 [facility] Comment on above: IG% - Immature Granu locytes (promyelocytes, myelocytes and metamyelocytes) > 1% indicates that a LEFT SHIFT is Present. MCH (RBC) [Entitic mass] 31.2 pg 27.0-32.0 [facility] Nucleated RBC/100 WBC (Bld) [Ratio] 0 % 0-5 [facility] MCHC Auto (RBC) [Mass/Vol]Or dered By: Dr. Mina on 01-07-2023 MCHC (RBC) [Mass/Vol] 33.0 g/dL 32-36 [facility] No Panel InformationOrdered By: Dr. Mina on 01-07-2023 Estimated Creatinine Clearance Calc 125.50 ml/min [facility] Estimated GFR (MDRD) Amer 134 mL/min >60 [facility] Comment on above: GFR Calc Estimated GFR (MDRD) Non-Af Amer 111 mL/min >60 [facility] Comment on above: Non- GFR Calc Platelets bldOrdered By: Dr. Mina on 01-07-2023 Platelets (Bld) [#/Vol] 316 10*3/uL 150-450 [facility] Serum or plasma calcium tong urement (mass/volume)Ordered By: Dr. Mina on 01-07-2023 Calcium [Mass/Vol] 8.1 mg/dL 8.5-10.1 [facility] Serum or plasma creatinine m easurement (mass/volume)Ordered By: Dr. Mina on 01-07-2023 Creatinine [Mass/Vol] 0.80 mg/dL 0.70-1.30 [facility] Comment on above: The validity of the calculated GFR & GFRAA in patients over 70 years has not been determined. Clinical correlation is essential. Serum or plasma urea nitroge n measurement (mass/volume)Ordered By: Dr. Mina on 01-07-2023 Urea nitrogen [Mass/Vol] 6 mg/dL 7-18 [facility] Thin prep Papanicolaou smear with manual screeningOrdered By: Dr. Mina on 01-07-2023 Thin prep Papanicolaou smear with manual screening 2 5-15 [facility] - Microbiology an d Antimicrobial susceptibilityOrdered By: Dr. Chaidez on 01-06-2023 Bacteria identified Cx Nom (Bld) No growth in 5 days. [facility] Bacteria identified Cx Nom (Bld) No growth in 5 days. [facility] Serum or plasma vancomycin m easurement (mass/volume)Ordered By: Dr. Chaidez on 01-06-2023 Vancomycin [Mass/Vol] 9.6 ug/mL 0.0-15.0 [facility] Comment on above: VANCOMYCIN STANDARD DRUG THERAPY: CRITICAL VALUE IS > 15.0 mg/L VANCOMYCIN HIGH INTENSITY THERAPY: CRITICAL VALUE IS > 20.0 mg/L PLEASE CONTACT PHARMACY SERVICES (#[id number]) FOR INTERPRETATIONOF RESULTS. THIS RESULT DOES NOT REPRESENT A PEAK OR TROUGHLEVEL FOR THIS DRUG. Base excessOrdered By: Dr. John alvarado on 01-05-2023 Base excess Calc (BldV) [Moles/Vol] -1 mmol/L -2-2 [facility] Basophil percentageOrdered B y: Dr. Mina on 01-05-2023 Basophil percentage 23.6 mmol/L 22-26 [facility] Basophils/100 WBC (Bld) 97 % 95-99 [facility] CO2 (BldA) [Partial pressure ]Ordered By: Dr. Mina on 01-05-2023 CO2 (Bld) [Partial pressure] 35.4 mm[Hg] 35-45 [facility] No Panel InformationOrdered By: Dr. Mina on 01-05-2023 Blood Gas Oxygen Percent 21 [facility] Blood Gas Sample Site R Radial [facility] Blood Gas Specimen Type ART [facility] Blood Gas Total CO2 25 mmol/L [facility] Oxygen (BldA) [Partial press ure]Ordered By: Dr. Mina on 01-05-2023 Oxygen (Bld) [Partial pressure] 84 mmHG 75-100 [facility] Vancomycin troughOrdered By: Dr. Mina on 01-05-2023 Vancomycin trough [Mass/Vol] 24.8 ug/mL 5.0-15.0 [facility] Comment on above: VANCOMYCIN STANDARED DRUG THERAPY TROUGH LEVEL: 5.0 - 15.0 mg/L VANCOMYCIN HIGH INTENSITY THERAPY TROUGH LEVEL: 15.0 - 20.0 mg/L High Intensity therapy recommended for serious lifethreatening infections include:- Tflpdcnjdz-Tyeqtpybjutn-Jerdurcom (Ventilator/Healtcare Associated)-Sepsis PLEASE CONTACT PHARMACY SERVICES (#[id number]) FOR INTERPRETATIONOF RESULTS. pH measurementOrdered By: Dr Joss Mina on 01-05-2023 pH (Unsp spec) 7.43 [pH] 7.35-7.45 [facility] Basophil percentageOrdered B y: Dr. Mina on 01-04-2023 Basophil percentage 10.7 ug/mL 10.0-40.0 [facility] Bilirubin [Mass/Vol] 0.10 mg/dL 0.20-1.00 [facility] Comment on above: For patients on eltr ombopag therapy, use of Dimension [place] TBIL is not recommended. Protein [Mass/Vol] 5.9 g/dL 6.4-8.2 [facility] Direct bilirubinOrdered By: Dr. Mina on 01-04-2023 Bilirubin.direct [Mass/Vol] 0.06 mg/dL 0.00-0.30 [facility] Laboratory - Chemistry and C hemistry - challengeOrdered By: Dr. Mina on 01-04-2023 ALP [Catalytic activity/Vol] 45 U/L 45-117 [facility] ALT [Catalytic activity/Vol] 19 U/L 16-61 [facility] Free T4 [Mass/Vol] 1.16 ng/dL 0.76-1.46 [facility] Globulin (S) [Mass/Vol] 4.1 g/dL 2.2-4.2 [facility] No Panel InformationOrdered By: Dr. Mina on 01-04-2023 Valproic Acid (Depakene) Level 75 ug/mL 50-100 [facility] Thyroid Stimulating Hormone (TSH) 2.38 uIU/mL 0.358-3.74 [facility] Serum or plasma albumin tong urement (mass/volume)Ordered By: Dr. Mina on 01-04-2023 Albumin [Mass/Vol] 1.8 g/dL 3.2-5.0 [facility] Thin prep Papanicolaou smear with manual screeningOrdered By: Dr. Mina on 01-04-2023 Thin prep Papanicolaou smear with manual screening 19 U/L 15-37 [facility] Culture, urineOrdered By: Dr Joss Ahmadi on 01-03-2023 Bacteria identified Cx Nom (U) Staphylococcus epidermidis [facility] Bacteria identified Cx Nom (U) Staphylococcus lentus [facility] Stool gastrointestinal hemog lobin detection by immunologic methodOrdered By: Dr. Tavares on 01-03-2023 Lower GI hemoglobin IA Ql (Stl) [facility] Iron measurement (mass/mass) Ordered By: Dr. Tavares on 01-01-2023 Iron (Unsp spec) [Mass/Mass] 35 ug/dL 65-175 [facility] No Panel InformationOrdered By: Dr. Tavares on 01-01-2023 Total Iron Binding Capacity 180 ug/dL 250-450 [facility] Serum or plasma albumin/glob ulin mass ratioOrdered By: Dr. Tavares on 01-01-2023 Albumin/Globulin [Mass ratio] 0.5 {ratio} 0.9-2.4 [facility] Serum or plasma ferritin cuong surement (mass/volume)Ordered By: Dr. Tavares on 01-01-2023 Ferritin [Mass/Vol] 195 ng/mL 26-388 [facility] Serum or plasma iron saturat ion measurement (mass fraction)Ordered By: Dr. Tavares on 01-01-2023 Iron saturation [Mass fraction] 19.4 % 15.0-55.0 [facility] Absolute lymphocyte countOrd ered By: Dr. Ahmadi on 12-31-2022 Lymphocytes Auto (Unsp spec) [#/Vol] 3.29 10*3/uL 0.83-4.51 [facility] Basophil percentageOrdered B y: Dr. Ahmadi on 12-31-2022 Basophil percentage 0-5 SEEN /hpf 0-[address] [facility] Basophils/100 WBC (Bld) 0.5 % 0-1 [facility] Bilirubin [Mass/Vol] 0.30 mg/dL 0.20-1.00 [facility] Comment on above: For patients on eltr ombopag therapy, use of Dimension [place] TBIL is not recommended. Chloride [Moles/Vol] 107 mmol/L 98-107 [facility] Eosinophils/100 WBC (Bld) 0.4 % 0-5 [facility] Glucose [Mass/Vol] 103 mg/dL 74-106 [facility] Comment on above: Fasting Glucose resu lt from 100 to 125 mg/dL suggests IMPAIRED HOMEOSTASIS per A.D.A. criteria. Lactate [Moles/Vol] 1.2 mmol/L 0.4-2.0 [facility] Neutrophils (Bld) [#/Vol] 6.1 10*3/uL 2.0-7.7 [facility] Neutrophils/100 WBC (Bld) 54.0 % 47-70 [facility] Potassium [Moles/Vol] 3.8 mmol/L 3.5-5.1 [facility] Protein [Mass/Vol] 7.6 g/dL 6.4-8.2 [facility] Sodium [Moles/Vol] 136 mmol/L 136-145 [facility] WBC (Bld) [#/Vol] 11.4 10*3/uL 4.4-11.0 [facility] Basophil percentageOrdered B y: Dr. Tavares on 12-31-2022 Basophil percentage 3.1 mg/dL 2.5-4.9 [facility] Bilirubin Test strip Ql (U)O rdered By: Dr. Ahmadi on 12-31-2022 Bilirubin Ql (U) 1 mg/dL Negative [facility] Comment on above: COLOR OF URINE MAY A FFECT DIPSTICK RESULTS. Blood erythrocytes count (nu mber/volume)Ordered By: Dr. Ahmadi on 12-31-2022 RBC (Bld) [#/Vol] 4.04 10*6/uL 4.6-6.2 [facility] Blood hemoglobin measurement (mass/volume)Ordered By: Dr. Ahmadi on 12-31-2022 Hemoglobin (Bld) [Mass/Vol] 12.5 g/dL 13.0-16.5 [facility] Blood lymphocytes/100 leukoc ytesOrdered By: Dr. Ahmadi on 12-31-2022 Lymphocytes/100 WBC (Bld) 29.0 % 19-41 [facility] Blood manual differential co mment interpretation (narrative result)Ordered By: Dr. Ahmadi on 12-31-2022 Manual differential comment Will (Bld) [Interp] SCANNED [facility] Blood monocytes/100 leukocyt esOrdered By: Dr. Ahmadi on 12-31-2022 Monocytes/100 WBC (Bld) 15.7 % 0-10 [facility] Blood platelet mean volumeOr dered By: Dr. Ahmadi on 12-31-2022 Platelet mean volume (Bld) [Entitic vol] 9.8 fL 6.2-12.0 [facility] Determination of erythrocyte mean corpuscular volume (MCV)Ordered By: Dr. Ahmadi on 12-31-2022 MCV (RBC) [Entitic vol] 93.1 fL 80-94 [facility] Hematocrit Auto (Bld) [Volum e fraction]Ordered By: Dr. Ahmadi on 12-31-2022 Hematocrit (Bld) [Volume fraction] 37.6 % 40-54 [facility] INR in Blood by Coagulation assayOrdered By: Dr. Ahmadi on 12-31-2022 INR Coag (Bld) [Relative time] 1.2 {INR} [facility] Influenza virus A and B and SARS-CoV-2 (COVID-19) Ag panel - Upper respiratory specimOrdered By: Dr. Ahmadi on 12-31-2022 SARS-CoV-2 (COVID-19) RNA VINCE+probe Ql (Resp) [facility] Ketones Test strip Ql (U)Ord ered By: Dr. Ahmadi on 12-31-2022 Ketones Ql (U) 15 mg/dl Negative [facility] Laboratory - Chemistry and C hemistry - challengeOrdered By: Dr. Ahmadi on 12-31-2022 ALP [Catalytic activity/Vol] 56 U/L 45-117 [facility] ALT [Catalytic activity/Vol] 19 U/L 16-61 [facility] CO2 [Moles/Vol] 23.0 mmol/L 21.0-32.0 [facility] Globulin (S) [Mass/Vol] 5.0 g/dL 2.2-4.2 [facility] Urea nitrogen/Creatinine [Mass ratio] 17.0 mg/mg 10-20 [facility] Laboratory - Chemistry and C hemistry - challengeOrdered By: Dr. Tavares on 12-31-2022 Magnesium [Mass/Vol] 1.8 mg/dL 1.6-2.6 [facility] Laboratory - CoagulationOrde red By: Dr. Ahmadi on 12-31-2022 aPTT Coag (Bld) [Time] 39.2 s 24.1-36.[address] [facility] PT Coag (PPP) [Time] 14.8 s 11.7-14.9 [facility] Laboratory - Hematology and Cell countsOrdered By: Dr. Ahmadi on 12-31-2022 Erythrocyte distribution width (RBC) [Entitic vol] 41.3 fL 35.1-43.9 [facility] Erythrocyte distribution width (RBC) [Ratio] 11.9 % 11.6-14.6 [facility] Immature granulocytes/100 WBC (Bld) 0.400 % 0.0-0.9 [facility] Comment on above: IG% - Immature Granu locytes (promyelocytes, myelocytes and metamyelocytes) > 1% indicates that a LEFT SHIFT is Present. MCH (RBC) [Entitic mass] 30.9 pg 27.0-32.0 [facility] Nucleated RBC/100 WBC (Bld) [Ratio] 0 % 0-5 [facility] MCHC Auto (RBC) [Mass/Vol]Or dered By: Dr. Ahmadi on 12-31-2022 MCHC (RBC) [Mass/Vol] 33.2 g/dL 32-36 [facility] Mucus LM Ql (Urine sed)Order ed By: Dr. Ahmadi on 12-31-2022 Mucus Ql (Urine sed) 0 SEEN /hpf [facility] Nitrite Test strip Ql (U)Ord ered By: Dr. Ahmadi on 12-31-2022 Nitrite Ql (U) Positive Negative [facility] No Panel InformationOrdered By: Dr. Ahmadi on 12-31-2022 Estimated Creatinine Clearance Calc 123.39 ml/min [facility] Estimated GFR (MDRD) Amer 130 mL/min >60 [facility] Comment on above: GFR Calc Estimated GFR (MDRD) Non-Af Amer 107 mL/min >60 [facility] Comment on above: Non- GFR Calc Troponin I High Sensitivity 66 pg/mL 3.0-78.0 [facility] Comment on above: Please Note: New Rosa Elena t Units and Gender Specific Reference Ranges. For more information see Policy Stat Procedure [place] High Sensitivity Troponin (TNIH) and attachments. Valproic Acid (Depakene) Level 78 ug/mL 50-100 [facility] Platelets bldOrdered By: Dr. Ahmadi on 12-31-2022 Platelets (Bld) [#/Vol] 325 10*3/uL 150-450 [facility] Protein Test strip Ql (U)Ord ered By: Dr. Ahmadi on 12-31-2022 Protein Ql (U) 15 mg/dl Negative [facility] Review by pathologistOrdered By: Dr. Ahmadi on 12-31-2022 Pathologist review Will (Unsp spec) [Interp] Gaviota estrada [facility] Pathologist review Will (Unsp spec) [Interp] Reviewed [facility] Comment on above: Previous reported re sult: Gaviota estrada Edited by: RGOOD on 01/01/23:1215 AMENDED REPORT 01/01/23 1215 PATH REV previously reported as: January foll Serum or plasma albumin tong urement (mass/volume)Ordered By: Dr. Ahmadi on 12-31-2022 Albumin [Mass/Vol] 2.6 g/dL 3.2-5.0 [facility] Serum or plasma albumin/glob ulin mass ratioOrdered By: Dr. Ahmadi on 12-31-2022 Albumin/Globulin [Mass ratio] 0.5 {ratio} 0.9-2.4 [facility] Serum or plasma calcium tong urement (mass/volume)Ordered By: Dr. Ahmadi on 12-31-2022 Calcium [Mass/Vol] 8.8 mg/dL 8.5-10.1 [facility] Serum or plasma creatinine m easurement (mass/volume)Ordered By: Dr. Ahmadi on 12-31-2022 Creatinine [Mass/Vol] 0.82 mg/dL 0.70-1.30 [facility] Comment on above: The validity of the calculated GFR & GFRAA in patients over 70 years has not been determined. Clinical correlation is essential. Serum or plasma urea nitroge n measurement (mass/volume)Ordered By: Dr. Ahmadi on 12-31-2022 Urea nitrogen [Mass/Vol] 14 mg/dL 7-18 [facility] Squamous epithelial cells de tection in urine sediment by light microscopyOrdered By: Dr. Ahmadi on 12-31-2022 Epithelial cells.squamous LM Ql (Urine sed) 0 SEEN /hpf 0-5 [facility] Thin prep Papanicolaou smear with manual screeningOrdered By: Dr. Ahmadi on 12-31-2022 Thin prep Papanicolaou smear with manual screening 21 U/L 15-37 [facility] Thin prep Papanicolaou smear with manual screening 6 5-15 [facility] Urine blood detectionOrdered By: Dr. Ahmadi on 12-31-2022 RBC Ql (U) 250 /ul Negative [facility] RBC Ql (U) 0-5 SEEN /hpf 0-5 [facility] Urine clarityOrdered By: Dr. Ahmadi on 12-31-2022 Clarity (U) Cloudy Clear [facility] Urine color determinationOrd ered By: Dr. Ahmadi on 12-31-2022 Color (U) Betzaida Yellow [facility] Urine glucose detectionOrder ed By: Dr. Ahmadi on 12-31-2022 Glucose Ql (U) Normal mg/dl Normal [facility] Urine leukocyte esterase det ection by dipstickOrdered By: Dr. Ahmadi on 12-31-2022 Leukocyte esterase Test strip Ql (U) 25 /ul Negative [facility] Urine pHOrdered By: Dr. Zafar thomas on 12-31-2022 pH (U) 6.0 [pH] 5.0 - 8.0 [facility] Urine sediment bacteria coun t by microscopy (number/high power field)Ordered By: Dr. Ahmadi on 12-31-2022 Bacteria LM.HPF (Urine sed) [#/Area] 4 /[HPF] None Seen [facility] Urine specific gravity measu rementOrdered By: Dr. Ahmadi on 12-31-2022 Specific gravity (U) [Rel density] 1.020 1.002-1.03 0 [facility] Urobilinogen Auto test strip Ql (U)Ordered By: Dr. Ahmadi on 12-31-2022 Urobilinogen Ql (U) 4 mg/dl Normal [facility] Absolute lymphocyte counton 04-21-2022 Lymphocytes Auto (Unsp spec) [#/Vol] 3.70 10*3/uL 0.83-4.51 [facility] Work Phone: Basophil percentageon 2021 Basophils/100 WBC (Bld) 0.5 % 0-1 [facility] Work Phone: Bilirubin [Mass/Vol] 0.40 mg/dL 0.20-1.00 [facility] Work Phone: Comment on above: For patients on eltr ombopag therapy, use of Dimension [place] TBIL is not recommended. Chloride [Moles/Vol] 109 mmol/L 98-107 [facility] Work Phone: Eosinophils/100 WBC (Bld) 0.9 % 0-5 [facility] Work Phone: Glucose [Mass/Vol] 113 mg/dL 74-106 [facility] Work Phone: Comment on above: Fasting Glucose resu lt from 100 to 125 mg/dL suggests IMPAIRED HOMEOSTASIS per A.D.A. criteria. Neutrophils (Bld) [#/Vol] 4.4 10*3/uL 2.0-7.7 [facility] Work Phone: Neutrophils/100 WBC (Bld) 46.1 % 47-70 [facility] Work Phone: Potassium [Moles/Vol] 4.1 mmol/L 3.5-5.1 [facility]: Protein [Mass/Vol] 7.8 g/dL 6.4-8.2 [facility] Work Phone: Sodium [Moles/Vol] 139 mmol/L 136-145 [facility] Work Phone: WBC (Bld) [#/Vol] 9.6 10*3/uL 4.4-11.0 [facility] Work Phone: Blood erythrocytes count (nu mber/volume)on 04-21-2022 RBC (Bld) [#/Vol] 4.47 10*6/uL 4.6-6.2 [facility]: Blood hemoglobin measurement (mass/volume)on 04-21-2022 Hemoglobin (Bld) [Mass/Vol] 14.3 g/dL 13.0-16.5 [facility] Work Phone: Blood lymphocytes/100 leukoc yteson 04-21-2022 Lymphocytes/100 WBC (Bld) 38.6 % 19-41 [facility] Work Phone: Blood monocytes/100 leukocyt eson 04-21-2022 Monocytes/100 WBC (Bld) 13.5 % 0-10 [facility] Work Phone: Blood platelet mean volumeon 04-21-2022 Platelet mean volume (Bld) [Entitic vol] 10.6 fL 6.2-12.0 [facility] Work Phone: [phone] Determination of erythrocyte mean corpuscular volume (MCV)on 08-09-2022 MCV (RBC) [Entitic vol] 94.0 fL 80-94 [facility] Work Phone: Hematocrit Auto (Bld) [Volum e fraction]on 04-21-2022 Hematocrit (Bld) [Volume fraction] 42.0 % 40-54 [facility] Work Phone: [phone] Laboratory - Chemistry and C hemistry - challengeon 04-21-2022 ALP [Catalytic activity/Vol] 63 U/L 45-117 [facility] Work Phone: ALT [Catalytic activity/Vol] 13 U/L 16-61 [facility] Work Phone: CO2 [Moles/Vol] 24.0 mmol/L 21.0-32.0 [facility] Work Phone: [phone] Globulin (S) [Mass/Vol] 4.4 g/dL 2.2-4.2 [facility] Work Phone: [phone] Urea nitrogen/Creatinine [Mass ratio] 19.6 mg/mg 10-20 [facility] Work Phone: Laboratory - Hematology and Cell countson 04-21-2022 Erythrocyte distribution width (RBC) [Entitic vol] 43.4 fL 35.1-43.9 [facility] Work Phone: [phone] Erythrocyte distribution width (RBC) [Ratio] 12.7 % 11.6-14.6 [facility] Work Phone: [phone] Immature granulocytes/100 WBC (Bld) 0.400 % 0.0-0.9 [facility] Work Phone: [phone] Comment on above: IG% - Immature Granu locytes (promyelocytes, myelocytes and metamyelocytes) > 1% indicates that a LEFT SHIFT is Present. MCH (RBC) [Entitic mass] 32.0 pg 27.0-32.0 [facility] Work Phone: [phone] Nucleated RBC/100 WBC (Bld) [Ratio] 0 % 0-5 [facility] Work Phone: [phone] MCHC Auto (RBC) [Mass/Vol]on 04-21-2022 MCHC (RBC) [Mass/Vol] 34.0 g/dL 32-36 [facility] Work Phone: No Panel Informationon 04-21 Estimated GFR (MDRD) Amer 101 mL/min >60 [facility] Work Phone: Comment on above: GFR Calc Estimated GFR (MDRD) Non-Af Amer 84 mL/min >60 [facility] Work Phone: Comment on above: Non- GFR Calc Phenobarbital Level 23.5 ug/mL 10.0-40.0 [facility] Work Phone: Valproic Acid (Depakene) Level 77 ug/mL 50-100 [facility] Work Phone: Platelets bldon 04-21-2022 Platelets (Bld) [#/Vol] 197 10*3/uL 150-450 [facility] Work Phone: Serum or plasma albumin tong urement (mass/volume)on 04-21-2022 Albumin [Mass/Vol] 3.4 g/dL 3.2-5.0 [facility] Work Phone: Serum or plasma albumin/glob ulin mass ratioon 04-21-2022 Albumin/Globulin [Mass ratio] 0.8 {ratio} 0.9-2.4 [facility] Work Phone: Serum or plasma calcium tong urement (mass/volume)on 04-21-2022 Calcium [Mass/Vol] 8.4 mg/dL 8.5-10.1 [facility] Work Phone: Serum or plasma creatinine m easurement (mass/volume)on 04-21-2022 Creatinine [Mass/Vol] 1.02 mg/dL 0.70-1.30 [facility] Work Phone: Comment on above: The validity of the calculated GFR & GFRAA in patients over 70 years has not been determined. Clinical correlation is essential. Serum or plasma urea nitroge n measurement (mass/volume)on 04-21-2022 Urea nitrogen [Mass/Vol] 20 mg/dL 7-18 [facility] Work Phone: Thin prep Papanicolaou smear with manual screeningon 04-21-2022 Thin prep Papanicolaou smear with manual screening 12 U/L 15-37 [facility] Work Phone: Thin prep Papanicolaou smear with manual screening 6 5-15 [facility] Work Phone: Absolute lymphocyte counton 02-16-2022 Lymphocytes Auto (Unsp spec) [#/Vol] 2.85 10*3/uL 0.83-4.51 [facility] Work Phone: Basophil percentageon 2021 Basophils/100 WBC (Bld) 0.5 % 0-1 [facility] Work Phone: Bilirubin [Mass/Vol] 0.20 mg/dL 0.20-1.00 [facility] Work Phone: Comment on above: For patients on eltr ombopag therapy, use of Dimension [place] TBIL is not recommended. Chloride [Moles/Vol] 107 mmol/L 98-107 [facility] Work Phone: Eosinophils/100 WBC (Bld) 0.9 % 0-5 [facility] Work Phone: Glucose [Mass/Vol] 88 mg/dL 74-106 [facility] Work Phone: Neutrophils (Bld) [#/Vol] 3.5 10*3/uL 2.0-7.7 [facility] Work Phone: Neutrophils/100 WBC (Bld) 47.0 % 47-70 [facility] Work Phone: Potassium [Moles/Vol] 4.4 mmol/L 3.5-5.1 [facility] Work Phone: Protein [Mass/Vol] 7.6 g/dL 6.4-8.2 [facility] Work Phone: Sodium [Moles/Vol] 137 mmol/L 136-145 [facility] Work Phone: WBC (Bld) [#/Vol] 7.5 10*3/uL 4.4-11.0 [facility] Work Phone: [phone] Blood erythrocytes count (nu mber/volume)on 02-16-2022 RBC (Bld) [#/Vol] 4.44 10*6/uL 4.6-6.2 [facility] Work Phone: [phone] Blood hemoglobin measurement (mass/volume)on 02-16-2022 Hemoglobin (Bld) [Mass/Vol] 14.3 g/dL 13.0-16.5 [facility] Work Phone: Blood lymphocytes/100 leukoc yteson 02-16-2022 Lymphocytes/100 WBC (Bld) 38.2 % 19-41 [facility] Work Phone: Blood monocytes/100 leukocyt eson 02-16-2022 Monocytes/100 WBC (Bld) 13.0 % 0-10 [facility] Work Phone: Blood platelet mean volumeon 02-16-2022 Platelet mean volume (Bld) [Entitic vol] 10.6 fL 6.2-12.0 [facility] Work Phone: [phone] Determination of erythrocyte mean corpuscular volume (MCV)on 02-16-2022 MCV (RBC) [Entitic vol] 93.5 fL 80-94 [facility] Work Phone: [phone] Hematocrit Auto (Bld) [Volum e fraction]on 02-16-2022 Hematocrit (Bld) [Volume fraction] 41.5 % 40-54 [facility] Work Phone: [phone] Laboratory - Chemistry and C hemistry - challengeon 02-16-2022 ALP [Catalytic activity/Vol] 62 U/L 45-117 [facility] Work Phone: [phone] ALT [Catalytic activity/Vol] 16 U/L 16-61 [facility] Work Phone: [phone] CO2 [Moles/Vol] 23.0 mmol/L 21.0-32.0 [facility] Work Phone: Globulin (S) [Mass/Vol] 4.3 g/dL 2.2-4.2 [facility] Work Phone: Urea nitrogen/Creatinine [Mass ratio] 9.7 mg/mg 10-20 [facility] Work Phone: Laboratory - Hematology and Cell countson 02-16-2022 Erythrocyte distribution width (RBC) [Entitic vol] 43.1 fL 35.1-43.9 [facility] Work Phone: Erythrocyte distribution width (RBC) [Ratio] 12.4 % 11.6-14.6 [facility] Work Phone: Immature granulocytes/100 WBC (Bld) 0.400 % 0.0-0.9 [facility] Work Phone: Comment on above: IG% - Immature Granu locytes (promyelocytes, myelocytes and metamyelocytes) > 1% indicates that a LEFT SHIFT is Present. MCH (RBC) [Entitic mass] 32.2 pg 27.0-32.0 [facility] Work Phone: Nucleated RBC/100 WBC (Bld) [Ratio] 0 % 0-5 [facility] Work Phone: MCHC Auto (RBC) [Mass/Vol]on 02-16-2022 MCHC (RBC) [Mass/Vol] 34.5 g/dL 32-36 [facility] Work Phone: No Panel Informationon 02-16 Estimated GFR (MDRD) Amer 129 mL/min >60 [facility] Work Phone: Comment on above: GFR Calc Estimated GFR (MDRD) Non-Af Amer 107 mL/min >60 [facility] Work Phone: Comment on above: Non- GFR Calc Platelets bldon 02-16-2022 Platelets (Bld) [#/Vol] 232 10*3/uL 150-450 [facility] Work Phone: Serum or plasma albumin tong urement (mass/volume)on 02-16-2022 Albumin [Mass/Vol] 3.3 g/dL 3.2-5.0 [facility] Work Phone: Serum or plasma albumin/glob ulin mass ratioon 02-16-2022 Albumin/Globulin [Mass ratio] 0.8 {ratio} 0.9-2.4 [facility] Work Phone: Serum or plasma calcium tong urement (mass/volume)on 02-16-2022 Calcium [Mass/Vol] 8.6 mg/dL 8.5-10.1 [facility] Work Phone: Serum or plasma creatinine m easurement (mass/volume)on 02-16-2022 Creatinine [Mass/Vol] 0.83 mg/dL 0.70-1.30 [facility] Work Phone: Comment on above: The validity of the calculated GFR & GFRAA in patients over 70 years has not been determined. Clinical correlation is essential. Serum or plasma urea nitroge n measurement (mass/volume)on 02-16-2022 Urea nitrogen [Mass/Vol] 8 mg/dL 7-18 [facility] Work Phone: Thin prep Papanicolaou smear with manual screeningon 02-16-2022 Thin prep Papanicolaou smear with manual screening 13 U/L 15-37 [facility] Work Phone: Thin prep Papanicolaou smear with manual screening 7 5-15 [facility] Work Phone: CNOVon 12-07-2017 CNOV Office Visit (AGCARDWST) -------GEORGES COTTO ([id number]) 1975 MDate Time Provider Department12/07/17 4:00 PM WAGNER DURON AGCFER During your visit today, we recorded the following information about you: Pulse Blood pressure Weight 66/minute 122/80 85.8 kgWagner Duron MD 12/07/2017 5:21 PM SignedPERTINENT CARDIAC HISTORYMarfan SyndromeDilated aortic root - 4.9 cmHTNADHERENCE TO GUIDELINESACE-I or ARB for HF with prior LVEFANDlt;40 (NQF 0081) - N/AASA or Plavix for ASHD (NQF 0067) - N/ABeta adrienne for ASHD with prior VA or prior LVEFANDlt;40 (NQF 0070) - N/ABeta adrienne for HF with prior LVEFANDlt;40 (NQF 0083) - N/AACE-I or ARB for ASHD with DM or prior LVEFANDlt;40 (NQF 0066) - N/AStatin therapy for ASHD or FHL or DM - N/ABMI documented and plan if ANDgt;25 (NQF 0421) - lifestyle recommendation formTobacco use screening and referral (NQF 0028) - lifestyle recommendation formRecommendation for whole food, plant based diet - lifestyle recommendation formCLINICAL IMPRESSION/PLAN:Georges Cotto has stable aortic dilatation. This is asymptomatic. His bloodpressure is adequately controlled at this time with beta adrienne therapy. If herequires further therapy, losartan would be a reasonable addition.His peripheral edema is likely related to venous insufficiency. There is noevidence of right heart failure. I reinforced previous recommendation for himto wear support stockings.I'll see him in 6 months at which time we will update his echocardiogram. Hismother reports that she is very skeptical that he could tolerate a majoroperation. She is aware of the risk as other family members have had aorticsurgery and there has been mortality in the family related to Marfan's.Written and verbal health teaching given to patient, patient verbalizesunderstanding and agrees with treatment plan.DIAGNOSIS FOR VISIT:Marfan syndromeDilated aortic rootHISTORY OF PRESENT ILLNESSDasteff Cotto is a 42-year-old gentleman who is seen at family request forcontinued care. He previously saw Dr. Kruse and Dr. Moreno.He has severe developmental delay and is essentially nonverbal. His mothercomes with him today. She reports that he has been doing well. He has notcomplained of chest pain. He has not appeared to be in distress. His exercisetolerance has been stable. He's having some pedal edema but no orthopnea. Hisseizures are under fair control. He has not complained of any palpitations andhas not had any focal neurologic signs.He has been itching a lot and they have fleas in the house. They also seen somesmall bugs and have an farm marketer coming in next week to treat the house.ALLERGIES:ALLERGIESNo Known AllergiesCURRENT OUTPATIENT MEDICATIONS:levothyroxine (LEVOXYL) 50 mcg tablet Take 1 tablet by mouth once daily. Takeon empty stomach. For ThyroidComp Stocking,Knee,Long,Medium misc 1 Each once daily.metoprolol succinate ER (TOPROL XL) 50 mg 24 hr tablet Take 1 tablet by mouthonce daily.divalproex DR (DEPAKOTE) 500 mg EC tablet 2 tablets in AM, 3 tablets in PM.atenolol (TENORMIN) 50 mg tablet TAKE 1 TABLET BY MOUTH TWICE DAILYPHENobarbital 32.4 mg tablet Take 1 tablet by mouth twice daily.clonazePAM (KLONOPIN) 0.5 mg tablet Take 1 tablet by mouth twice daily.multivitamin tablet Take 1 tablet by mouth once daily.PAST MEDICAL HISTORYDiagnosis Date- Calculus of kidney- Convulsions in - Enlarged aorta (HCC)- history- Marfan's syndrome- PMH - PAST MEDICAL HISTORY OF dislocated lenses r/t marfans- Urinary tract infection, site not specifiedPAST SURGICAL HISTORYProcedure Laterality Date- PAST SURGICAL HISTORY OF 1993 hamstring lengthening bilateral- PAST SURGICAL HISTORY OF age 7 dislocated lenses, removed (not replaced)FAMILY HISTORYProblem Relation Age of Onset- Emphysema Brother- Heart Maternal Uncle marfans- ruptured aorta- Heart Maternal Uncle marfans - ruptured aorta- Diabetes Maternal Aunt- Hypertension Mother- marfans [Other] [OTHER] Mother- Genetic Mother- Arthritis Mother- Cancer Maternal Grandmother colonSocial History Marital status: Single Spouse name: Years of education: Number of children:Occupational HistoryOccupation Employer CommentdisabledSocial History Main Topics Smoking status: Never Smoker Smokeless status: Never Used Alcohol use: No Drug use: NoREVIEW OF SYSTEMS: General: No chills, fever, weight loss, night sweats.Respiratory: No productive cough. Cardiac: As noted above. GI: No melena.: No dysuria. Musculoskeletal: No myalgias.PHYSICAL EXAMINATION: S/he is alert and in no distress. There are no obviousvermin presentVITAL SIGNS: BP 122/80 Pulse 66 Wt 189 lb 3.2 oz (85.8kg)SHEENT: Skin is warm and dry. No xanthelasmas appreciated. Pharynx isbenign. There is no oral cyanosis. Neck: supple. No adenopathy or thyroidenlargement. Chest: Clear to percussion and auscultation. Trachea is midline. Air entry is equal. There is no chest wall tenderness. Cardiac: Regularrhythm. S1 and S2 are normal. PMI is nondisplaced. There is a soft systolicejection murmur without radiation. There is a soft mitral click. Carotids arebrisk without bruits. JVP is less than 10 cm. Abdomen: Soft and nontender.There are no pulsatile masses or bruits. No liver enlargement. Bowel soundsare active. Extremities: 1 plus bilateral ankle edema. Pulses are intact andsymmetrical. No clubbing or cyanosis. No femoral bruits. Neurologic: Grosslynormal motor and sensory. S/he is alert and oriented x4.Prior echocardiograms were reviewed personally. Left ventricular function isnormal. The aortic root is dilated at the sinus. Dimension has been relativelystable over the last few years. He had a previous thoracic CT which showed nodilatation beyond the root.EKG shows sinus rhythm and is within normal limits.Recent labs were reviewed. Renal function is normal. LDL was 119.Electronically Signed:Wagner Duron [facility] 2017 4:14 [facility]:Renee SOTOMAYOR MD 12/07/2017 5:22 PM SignedLIFESTYLE CHANGEA healthy lifestyle is the most important component of your overall treatmentplan. Please give serious thought to the following areas and commit to makinglong term changes.EAT A WHOLE FOOD, PLANT BASED DIETThe nutrition your body gets is more important than the medicine you take.What matters most is the overall way you eat. We encourage you to minimize theuse of animal products (which include dairy and all meats except fatty fish)and use whole, unprocessed plant foods to provide your protein, vitamins andother nutrients. We have a lot of information to share with you on this topic. We also hold Shared Medical Appointments, where you can come visit with in the company of other patients and spend over an hour talking aboutthe challenges of changing the way you eat. This is not a ANDquot;dietANDquot;.It is a way of life that you will keep with you.EXERCISE REGULARLYIt is not important to spend hours in the gym, lifting weights and perspiringheavily. A total of 2-3 hours per week of aerobic (causing you to bemoderately short of breath) exercise is sufficient to improve your health.Talk to us before you begin a new exercise program, if you have heart diseaseor experience shortness of breath or chest pain.REDUCE STRESSChronic emotional and physical stress leads to disease. Ways of reducingstress include meditation, visualization, prayer, yoga and other forms ofrelaxation therapy. Consistency is the woodard. Find a technique that works foryou and do it every day.CULTIVATE RELATIONSHIPSLoneliness and isolation have a major negative impact on health. Seek outothers who can love, care for and nurture you. Avoid hurtful relationships.MAINTAIN IDEAL BODY WEIGHTThe best way to do this is to do all the things above. Our bodies naturallyfind the right weight if we keep moving and feed ourselves the right food. Ifyour BMI is greater than 25, we strongly recommend a referral to a weightmanagement program. Please speak to us or your family physician aboutavailable programs.AVOID NICOTINE IN ALL FORMSThis includes all tobacco products, whether chewed, smoked, vaped, or rubbed onthe skin. Smoking cessation programs, which can make use of tobaccosubstitutes, medications to suppress cravings and behavior management, areavailable. Please contact your family physician about programs in your area.Referring Provider: TAYLOR MORENO [[id number]]Allergies As of Date: 12/07/2017(No Known Allergies)Date Reviewed: 12/07/2017Reviewed by: Kylie Nash) Jose Raul - Fully AssessedReason for Visit: Recheck [92]Primary Visit Diagnosis:Marfan syndrome [Q87.40]Order(s):ECHO [851523] Order #: [id number]: 1 FUTUREPrescriptions as of 12/07/2017 Sig: LEVOTHYROXINE 50 MCG TABLET Take 1 tablet by mouth once d* COMPRESSION STOCKING,KNEE HIG* 1 Each once daily. METOPROLOL SUCCINATE ER 50 MG* Take 1 tablet by mouth once d* DIVALPROEX 500 MG TABLET,KASSANDRA* 2 tablets in AM, 3 tablets i* ATENOLOL 50 MG TABLET TAKE 1 TABLET BY MOUTH TWICE * PHENOBARBITAL 32.4 MG TABLET Take 1 tablet by mouth twice * CLONAZEPAM 0.5 MG TABLET Take 1 tablet by mouth twice * MULTIVITAMIN TABLET Take 1 tablet by mouth once d*Problem List As Of Date 12/07/2017 Noted Resolved Calculus of Kidney [N20.0] INVALID FOR*01/02/2010 Urinary Tract Infection, Site not Specified [N3*INVALID FOR*01/02/2010 Prostate Enlargement [N40.0] INVALID FOR* More... Mental retardation [F79] INVALID FOR* More... Seizure Disorder [G40.909] INVALID FOR* More... Marfan's syndrome [Q87.40] INVALID FOR* More... Aortic Root Dilatation [I77.810] INVALID FOR* Priority: A More... More... Bladder atony [N31.2] INVALID FOR* More... Pedal edema [R60.0] INVALID FOR* More... Essential hypertension [I10] INVALID FOR* Other instructions from your clinician: LIFESTYLE CHANGE A healthy lifestyle is the most important component of your overall treatment plan. 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 EAT A WHOLE FOOD, PLANT BASED DIET The nutrition your body gets is more important than the medicine you take. What matters most is the overall way you eat. We encourage you to minimize the use of animal products (which include dairy and all meats except fatty fish) and use whole, unprocessed plant foods to provide your protein, vitamins and other nutrients. We have a lot of information to share with you on this topic. We also hold Shared Medical Appointments, where you can come visit with Dr. Duron in the company of other patients and spend over an hour talking about the challenges of changing the way you eat. This is not a diet. It is a way of life that you will keep with you. EXERCISE REGULARLY It is not important to spend hours in the gym, lifting weights and perspiring heavily. A total of 2-3 hours per week of aerobic (causing you to be moderately short of breath) exercise is sufficient to improve your health. Talk to us before you begin a new exercise program, if you have heart disease or experience shortness of breath or chest pain. REDUCE STRESS Chronic emotional and physical stress leads to disease. Ways of reducing stress include meditation, visualization, prayer, yoga and other forms of relaxation therapy. Consistency is the woodard. Find a technique that works for you and do it every day. CULTIVATE RELATIONSHIPS Loneliness and isolation have a major negative impact on health. Seek out others who can love, care for and nurture you. Avoid hurtful relationships. MAINTAIN IDEAL BODY WEIGHT The best way to do this is to do all the things above. Our bodies naturally find the right weight if we keep moving and feed ourselves the right food. If your BMI is greater than 25, we strongly recommend a referral to a weight management program. Please speak to us or your family physician about available programs. AVOID NICOTINE IN ALL FORMS This includes all tobacco products, whether chewed, smoked, vaped, or rubbed on the skin. Smoking cessation programs, which can make use of tobacco substitutes, medications to suppress cravings and behavior management, are available. Please contact your family physician about programs in your area. Status:Closed by WAGNER DURON MD on 12/07/17 [facility] PROGRESSon 12-07-2017 PROGRESS HNO ID: [id number] thor: Wagner Vaqzuez: (none)Author Type: PhysicianType: Progress NotesFiled: 12/07/2017 5:21 PMNote Text:PERTINENT CARDIAC HISTORYMarfan SyndromeDilated aortic root - 4.9 cmHTNADHERENCE TO GUIDELINESACE-I or ARB for HF with prior LVEF<40 (NQF 0081) - N/AASA or Plavix for ASHD (NQF 0067) - N/ABeta adrienne for ASHD with prior VA or prior LVEF<40 (NQF 0070) - N/ABeta adrienne for HF with prior LVEF<40 (NQF 0083) - N/AACE-I or ARB for ASHD with DM or prior LVEF<40 (NQF 0066) - N/AStatin therapy for ASHD or FHL or DM - N/ABMI documented and plan if >25 (NQF 0421) - lifestyle recommendation formTobacco use screening and referral ([facility] 0028) - lifestyle recommendationformRecommenda tion for whole food, plant based diet - lifestyle recommendationformCLINICAL IMPRESSION/PLAN:Georges Cotto has stable aortic dilatation. This is asymptomatic. Hisblood pressure is adequately controlled at this time with beta blockertherapy. If he requires further therapy, losartan would be a reasonableaddition.His peripheral edema is likely related to venous insufficiency. There isno evidence of right heart failure. I reinforced previous recommendationfor him to wear support stockings.I'll see him in 6 months at which time we will update his echocardiogram.His mother reports that she is very skeptical that he could tolerate amajor operation. She is aware of the risk as other family members have hadaortic surgery and there has been mortality in the family related toMarfan's.Written and verbal health teaching given to patient, patient verbalizesunderstanding and agrees with treatment plan.DIAGNOSIS FOR VISIT:Marfan syndromeDilated aortic rootHISTORY OF PRESENT ILLNESSDasteff Cotto is a 42-year-old gentleman who is seen at family request forcontinued care. He previously saw Dr. Kruse and Dr. Moreno.He has severe developmental delay and is essentially nonverbal. His mothercomes with him today. She reports that he has been doing well. He has notcomplained of chest pain. He has not appeared to be in distress. Hisexercise tolerance has been stable. He's having some pedal edema but noorthopnea. His seizures are under fair control. He has not complained ofany palpitations and has not had any focal neurologic signs.He has been itching a lot and they have fleas in the house. They also seensome small bugs and have an farm marketer coming in next week to treat thehouse.ALLERGIES:ALLERGIES No Known AllergiesCURRENT OUTPATIENT MEDICATIONS:levothyroxine (LEVOXYL) 50 mcg tablet Take 1 tablet by mouth once daily.Take on empty stomach. For ThyroidComp Stocking,Knee,Long,Medium misc 1 Each once daily.metoprolol succinate ER (TOPROL XL) 50 mg 24 hr tablet Take 1 tablet bytxuth once daily.divalproex DR (DEPAKOTE) 500 mg EC tablet 2 tablets in AM, 3 tablets inPM.atenolol (TENORMIN) 50 mg tablet TAKE 1 TABLET BY MOUTH TWICE DAILYPHENobarbital 32.4 mg tablet Take 1 tablet by mouth twice daily.clonazePAM (KLONOPIN) 0.5 mg tablet Take 1 tablet by mouth twice daily.multivitamin tablet Take 1 tablet by mouth once daily.PAST MEDICAL HISTORYDiagnosis Date- Calculus of kidney- Convulsions in - Enlarged aorta (HCC)- history- Marfan's syndrome- PMH - PAST MEDICAL HISTORY OF dislocated lenses r/t marfans- Urinary tract infection, site not specifiedPAST SURGICAL HISTORYProcedure Laterality Date- PAST SURGICAL HISTORY OF 1993 hamstring lengthening bilateral- PAST SURGICAL HISTORY OF age 7 dislocated lenses, removed (not replaced)FAMILY HISTORYProblem Relation Age of Onset- Emphysema Brother- Heart Maternal Uncle marfans- ruptured aorta- Heart Maternal Uncle marfans - ruptured aorta- Diabetes Maternal Aunt- Hypertension Mother- marfans [Other] [OTHER] Mother- Genetic Mother- Arthritis Mother- Cancer Maternal Grandmother colonSocial History Marital status: Single Spouse name: Years of education: Number of children:Occupational HistoryOccupation Employer CommentdisabledSocial History Main Topics Smoking status: Never Smoker Smokeless status: Never Used Alcohol use: No Drug use: NoREVIEW OF SYSTEMS: General: No chills, fever, weight loss, night sweats. Respiratory: No productive cough. Cardiac: As noted above. GI: Nomelena. : No dysuria. Musculoskeletal: No myalgias.PHYSICAL EXAMINATION: S/he is alert and in no distress. There are noobvious vermin presentVITAL SIGNS: BP 122/80 Pulse 66 Wt 189 lb 3.2 oz (85.8kg)SHEENT: Skin is warm and dry. No xanthelasmas appreciated. Pharynx isbenign. There is no oral cyanosis. Neck: supple. No adenopathy orthyroid enlargement. Chest: Clear to percussion and auscultation.Trachea is midline. Air entry is equal. There is no chest walltenderness. Cardiac: Regular rhythm. S1 and S2 are normal. PMI isnondisplaced. There is a soft systolic ejection murmur without radiation.There is a soft mitral click. Carotids are brisk without bruits. JVP isless than 10 cm. Abdomen: Soft and nontender. There are no pulsatilemasses or bruits. No liver enlargement. Bowel sounds are active.Extremities: 1 plus bilateral ankle edema. Pulses are intact andsymmetrical. No clubbing or cyanosis. No femoral bruits. Neurologic:Grossly normal motor and sensory. S/he is alert and oriented x4.Prior echocardiograms were reviewed personally. Left ventricular functionis normal. The aortic root is dilated at the sinus. Dimension has beenrelatively stable over the last few years. He had a previous thoracic CTwhich showed no dilatation beyond the root.EKG shows sinus rhythm and is within normal limits.Recent labs were reviewed. Renal function is normal. LDL was 119.Electronically Signed:Wagner Duron, [facility] 2017 4:14 [facility]:SARANYA CASPER MD [facility] Vital Signs Date Time Vital Sign Value Performing Clinician Facility 01-12-2025 12:58-0400 Body height 188 cm Saranya Casper MD Work Phone: [facility] Comment on above: gajamesonan reported 01-12-2025 12:58-0400 Body mass index (BMI) [Ratio] 23.11 kg/m2 Saranya Casper MD Work Phone: [facility] 01-12-2025 12:58-0400 Body weight 81.65 kg Saranya Casper MD Work Phone: [facility] Comment on above: mone reported 01-12-2025 12:58-0400 Diastolic blood pressure 79 mm[Hg] Saranya Casper MD Work Phone: [facility] 01-12-2025 12:58-0400 Heart rate 97 /min Saranya Casper MD Work Phone: [facility] 01-12-2025 12:58-0400 Respiratory rate 16 /min Saranya Casper MD Work Phone: [facility] 01-12-2025 12:58-0400 Systolic blood pressure 106 mm[Hg] Saranya Casper MD Work Phone: [facility] 05-30-2024 15:55-0400 Diastolic blood pressure 64 mm[Hg] Saranya Casper MD Work Phone: [facility] 05-30-2024 15:55-0400 Heart rate 90 /min Saranya Casper MD Work Phone: [facility] 05-30-2024 15:55-0400 Respiratory rate 16 /min Saranya Casper MD Work Phone: [facility] 05-30-2024 15:55-0400 Systolic blood pressure 110 mm[Hg] Saranya Casper MD Work Phone: [facility] 03-01-2024 17:37-0400 Body mass index (BMI) [Ratio] 20.54 kg/m2 Ashley Older [employer]Y CLEANING ATTENDANT Work Phone: [facility] 03-01-2024 17:37-0400 Body weight 72.58 kg Ashley Older [employer]DRY CLEANING ATTENDANT Work Phone: [facility] 03-01-2024 17:37-0400 Diastolic blood pressure 74 mm[Hg] Ashley Older [employer]DRY CLEANING ATTENDANT Work Phone: [facility] 03-01-2024 17:37-0400 Heart rate 63 /min Ashley Older [employer]DRY CLEANING ATTENDANT Work Phone: [facility] 03-01-2024 17:37-0400 Respiratory rate 16 /min Ashley Older [employer] WE[employer]DRY CLEANING ATTENDANT Work Phone: [facility] 03-01-2024 17:37-0400 SaO2% (BldA) [Mass fraction] 95 % Ashley Older [employer]DR[employer] CLEANING ATTENDANT Work Phone: [facility] 03-01-2024 17:37-0400 Systolic blood pressure 118 mm[Hg] Ashley Older [employer]DRY CLEANING ATTENDANT Work Phone: [facility] 12-02-2023 14:38-0400 Body height 187.[address] [facility] 12-02-2023 14:38-0400 Body mass index (BMI) [Ratio] 23.7 kg/m2 Dr. Anup [facility] 12-02-2023 14:38-0400 Body weight 83.[address] Hebert [facility] 12-02-2023 14:38-0400 Diastolic blood pressure 66 mm[Hg] Dr. Hebert [facility] 12-02-2023 14:38-0400 Heart rate 86 /min Dr. Hebert [facility] 12-02-2023 14:38-0400 Respiratory rate 18 /min Dr. Anup Carranza [facility] 12-02-2023 14:38-0400 SaO2% (BldA) [Mass fraction] 99 % Dr. Hebert [facility] 12-02-2023 14:38-0400 Systolic blood pressure 105 mm[Hg] Dr. Hebert [facility] 04-28-2023 16:44-0400 Diastolic blood pressure 81 mm[Hg] Ashley Older [employer] WE[employer]DRY CLEANING ATTENDANT Work Phone: [facility] 04-28-2023 16:44-0400 Heart rate 117 /min Ashley Older [employer] WE[employer]DRY CLEANING ATTENDANT Work Phone: [facility] 04-28-2023 16:44-0400 Systolic blood pressure 119 mm[Hg] Ashley Older [employer]DRY CLEANING ATTENDANT Work Phone: [facility] 04-28-2023 16:16-0400 Respiratory rate 16 /min Ashley Older [employer] WEIGH[employer].DRY CLEANING ATTENDANT Work Phone: [facility] 04-28-2023 16:16-0400 SaO2% (BldA) [Mass fraction] 99 % Ashley Older [employer].DRY CLEANING ATTENDANT Work Phone: [facility] 02-15-2023 15:33-0400 Body height 188 cm Saranya Casper MD Work Phone: [facility] 02-15-2023 15:33-0400 Body temperature 97.39 [degF] Saranya Casper MD Work Phone: [facility] 02-15-2023 15:33-0400 Diastolic blood pressure 68 mm[Hg] Saranya Casper MD Work Phone: [facility] 02-15-2023 15:33-0400 Heart rate 102 /min Saranya Casper MD Work Phone: [facility] 02-15-2023 15:33-0400 Respiratory rate 12 /min Saranya Casper MD Work Phone: [facility] 02-15-2023 15:33-0400 SaO2% (BldA) [Mass fraction] 96 % Saranya Casper MD Work Phone: [facility] 02-15-2023 15:33-0400 Systolic blood pressure 112 mm[Hg] Saranya Casper MD Work Phone: 3(867)[phone] [place] [address] 01-07-2023 11:42-0400 Body temperature 97.7 [degF] Dr. Saranya Casper Work Phone: [facility] 01-07-2023 11:42-0400 Diastolic blood pressure 68 mm[Hg] Dr. Saranya Casper Work Phone: 9(485)904-617190 [place] [address] 01-07-2023 11:42-0400 Heart rate 85 /min Dr. Saranya Casper Work Phone: 2(261)464-190090 [place] [address] 01-07-2023 11:42-0400 Respiratory rate 16 /min Dr. Saranya Casper Work Phone: 6(925)578-039190 [place] [address] 01-07-2023 11:42-0400 SaO2% (BldA) [Mass fraction] 93 % Dr. Saranya Casper Work Phone: 7(729)880-538390 [place] [address] 01-07-2023 11:42-0400 Systolic blood pressure 102 mm[Hg] Dr. Saranya Casper Work Phone: 0(182)[phone] [place] [address] 01-07-2023 05:30-0400 Body mass index (BMI) [Ratio] 21.7 kg/m2 Dr. Saranya Casper Work Phone: 5(150)819-763490 [place] [address] 01-07-2023 05:30-0400 Body weight 76.[address] Saranya Casper Work Phone: 6(138)781-494190 [place] [address] 01-04-2023 14:38-0400 Body height 187.[address] Saranya Casper Work Phone: [facility] 12-31-2022 19:33-0400 Body temperature 96.6 [degF] [facility] 12-31-2022 19:33-0400 Diastolic blood pressure 65 mm[Hg] [facility] 12-31-2022 19:33-0400 Heart rate 82 /min [facility] 12-31-2022 19:33-0400 Respiratory rate 26 /min [facility] 12-31-2022 19:33-0400 SaO2% (BldA) [Mass fraction] 94 % [facility] 12-31-2022 19:33-0400 Systolic blood pressure 99 mm[Hg] [facility] 12-31-2022 16:14-0400 Body height 193.04 cm [facility] 12-31-2022 16:14-0400 Body mass index (BMI) [Ratio] 20.7 kg/m2 [facility] 12-31-2022 16:14-0400 Body weight 77.5 kg [facility] 10-09-2022 14:01-0500 Body height 188 cm Saranya Casper MD Work Phone: [facility] 10-09-2022 14:01-0500 Body temperature 97 [degF] Saranya Casper MD Work Phone: [facility] 10-09-2022 14:01-0500 Diastolic blood pressure 56 mm[Hg] Saranya Casper MD Work Phone: [facility] 10-09-2022 14:01-0500 Heart rate 60 /min Saranya Casper MD Work Phone: [facility] 10-09-2022 14:01-0500 Respiratory rate 12 /min Saranya Casper MD Work Phone: [facility] 10-09-2022 14:01-0500 SaO2% (BldA) [Mass fraction] 96 % Saranya Casper MD Work Phone: [facility] 10-09-2022 14:01-0500 Systolic blood pressure 108 mm[Hg] Saranya Casper MD Work Phone: [facility] 12-24-2021 14:53-0400 Body height 193.[address] Saranya Casper Work Phone: [facility] Work Phone: 12-24-2021 14:53-0400 Body weight 81.[address] Saranya Casper Work Phone: [facility] Work Phone: 12-24-2021 14:53-0400 Diastolic blood pressure 68 mm[Hg] Dr. Saranya Casper Work Phone: [facility] Work Phone: 12-24-2021 14:53-0400 Heart rate 63 /min Dr. Saranya Casper Work Phone: [facility] Work Phone: 12-24-2021 14:53-0400 Respiratory rate 18 /min Dr. Saranya Casper Work Phone: [facility] Work Phone: 12-24-2021 14:53-0400 SaO2% (BldA) [Mass fraction] 97 % Dr. Saranya Casper Work Phone: [facility] Work Phone: 12-24-2021 14:53-0400 Systolic blood pressure 109 mm[Hg] Dr. Saranya Casper Work Phone: [facility] Work Phone: 12-24-2021 14:53-0400 Body height 193.[address] Saranya Casper Work Phone: [facility] Work Phone: 12-24-2021 14:53-0400 Body weight 81.[address] Saranya Casper Work Phone: [facility] Work Phone: 12-24-2021 14:53-0400 Diastolic blood pressure 68 mm[Hg] Dr. Saranya Casper Work Phone: [facility] Work Phone: 12-24-2021 14:53-0400 Heart rate 63 /min Dr. Saranya Casper Work Phone: [facility] Work Phone: 12-24-2021 14:53-0400 Respiratory rate 18 /min Dr. Saranya Casper Work Phone: [facility] Work Phone: 12-24-2021 14:53-0400 SaO2% (BldA) [Mass fraction] 97 % Dr. Saranya Casper Work Phone: [facility] Work Phone: 12-24-2021 14:53-0400 Systolic blood pressure 109 mm[Hg] Dr. Saranya Casper Work Phone: [facility] Work Phone: 12-15-2021 15:28-0400 Body height 188 cm Saranya Casper MD Work Phone: [facility] 12-15-2021 15:28-0400 Body temperature 96.8 [degF] Saranya Casper MD Work Phone: [facility] 12-15-2021 15:28-0400 Body weight 81.65 kg Saranya Casper MD Work Phone: [facility] 12-15-2021 15:28-0400 Diastolic blood pressure 56 mm[Hg] Saranya Casper MD Work Phone: [facility] 12-15-2021 15:28-0400 Heart rate 68 /min Saranya Casper MD Work Phone: [facility] 12-15-2021 15:28-0400 Respiratory rate 12 /min Saranya Casper MD Work Phone: [facility] 12-15-2021 15:28-0400 SaO2% (BldA) [Mass fraction] 98 % Saranya Casper MD Work Phone: [facility] 12-15-2021 15:28-0400 Systolic blood pressure 110 mm[Hg] Saranya Casper MD Work Phone: [facility] 10-17-2020 14:21-0500 Body mass index (BMI) [Ratio] 22.4 kg/m2 Dr. Saranya Casper Work Phone: [facility] Work Phone: 10-17-2020 13:21-0500 Body mass index (BMI) [Ratio] 22.4 kg/m2 Dr. Saranya Casper Work Phone: [facility] Work Phone: Encounters Encounter Date Encounter Type Care Provider Facility Start: 03-15-2025 ambulatory Mallory Sextoni ty:[facility] Start: 01-12-2025 End: 01-12-2025 Office outpatient visit 25 minutes Saranya Casper MD Work Phone: [facility] [place] Comment on above: Annual physical exam (Primary Dx); Vitamin D deficiency; Fatigue, unspecified type; Weight gain; Seizure disorder (HCC); Marfan syndrome (HCC); Hypothyroidism, unspecified type; Thoracic aortic aneurysm without rupture, unspecified part Start: 01-12-2025 End: 01-12-2025 ambulatory SARANYA CASPER Facility:[facility] Start: 01-12-2025 End: 01-12-2025 Patient encounter procedure Saranya Casper MD Work Phone: [facility] Work Phone: Start: 12-13-2024 End: 12-13-2024 Telephone encounter Saranya Casper MD Work Phone: [facility] [place] Comment on above: Patient Request Pharmacy change requ est ([facility]) Start: 10-06-2024 ambulatory Saranya Capser Facility:[facility] Start: 09-27-2024 End: 09-29-2024 Telephone encounter Saranya Casper MD Work Phone: [facility] [place] Comment on above: Referral Request Start: 06-28-2024 End: 06-28-2024 Refill Saranya Casper MD Work Phone: Internal [facility] Comment on above: Refill Request Start: 06-09-2024 End: 06-09-2024 Telephone encounter Saranya Casper MD Work Phone: Internal [facility] Comment on above: Medication Question Start: 05-31-2024 End: 05-31-2024 Telephone encounter Saranya Casper MD Work Phone: [facility] Comment on above: statement of expert evaluation Start: 05-30-2024 End: 05-30-2024 Office outpatient visit 25 minutes Saranya Casper MD Work Phone: [facility] Comment on above: Mental retardation a ssociated with Fragile X syndrome (Primary Dx); Marfan's syndrome; Aortic Root Dilatation; Essential hypertension; Hypothyroidism, unspecified type Start: 05-22-2024 End: 05-22-2024 ambulatory [facility] Facility:[facility] Start: 03-24-2024 Refill Saranya Marques Work Phone: Internal [facility] Comment on above: Refill Request Start: 03-17-2024 ambulatory Kyle Roldan [facility] Start: 03-17-2024 End: 03-17-2024 ambulatory Saranya Casper Facility:[facility] Start: 03-04-2024 Telephone encounter Saranya iraheta MD Work Phone: [facility] Comment on above: Patient Update Start: 03-01-2024 End: 03-01-2024 Patient encounter procedure Ashley Noyola APRN.CNP Work Phone: [facility] Comment on above: Essential hypertensi on (Primary Dx); Hypothyroidism, unspecified type; Seizure disorder (HCC); Intellectual disability Start: 02-28-2024 Telephone encounter Saranya iraheta MD Work Phone: Internal [facility] Comment on above: Orders Start: 02-02-2024 Telephone encounter Edilberto chilel MD Work Phone: [facility] Comment on above: Insurance Inquiry; R eferral Information Start: 01-12-2024 End: 05-01-[address] Anup Carranza [facility] Work Phone: Start: 01-12-2024 End: 01-12-[address] Anup Carranza [facility], [facility] Work Phone: Start: 12-02-2023 End: 12-02-[address] Anup Carranza [facility] Work Phone: Start: 06-16-2023 Telephone encounter Saranya iraheta MD Work Phone: [facility] [place] Comment on above: Re-fax CMN form- See [facility] Start: 06-03-2023 Refill Saranya Marques Work Phone: [facility] Comment on above: Refill Request Start: 05-20-2023 Telephone encounter Ashley Noyola APRN.DRY CLEANING ATTENDANT Work Phone: [facility] [place] Comment on above: fax lab orders to [facility] Start: 04-28-2023 End: 04-28-2023 Patient encounter procedure Ashley Noyola APRN.DRY CLEANING ATTENDANT Work Phone: [facility] [place] Comment on above: Essential hypertensi on (Primary Dx); Intellectual disability; Debility; Decreased ambulation status; Infestation by bed bug; Seizure Disorder; Hypothyroidism, unspecified type; Hyperlipidemia, unspecified hyperlipidemia type Start: 04-26-2023 Telephone encounter Emmie Kathleen Dandy Comment on above: Orders Start: 04-22-2023 Telephone encounter Saranya iraheta MD Work Phone: [facility] [place] Comment on above: Certificate of Medic al Necessity Start: 04-19-2023 Telephone encounter Ashley Noyola APRN.DRY CLEANING ATTENDANT Work Phone: [facility] [place] Comment on above: Orders Start: 02-15-2023 End: 02-15-2023 Patient encounter procedure Saranya Casper MD Work Phone: [facility] [place] Comment on above: Hospital discharge f ollow-up (Primary Dx); Essential hypertension; Hypothyroidism, unspecified type; Urinary tract infection without hematuria, site unspecified; Seizure disorder (HCC) Start: 01-27-2023 Telephone encounter Saranya iraheta MD Work Phone: [facility] [place] Comment on above: Patient Update Start: 01-08-2023 Telephone encounter Saranya iraheta MD Work Phone: [facility] [place] Comment on above: Appointment Patient Update Start: 01-07-2023 Non-patient / Non-visit Dr. Fallon Casper Work Phone: [facility] Start: 01-06-2023 Non-patient / Non-visit Dr. Fallon Casper Work Phone: [facility] Start: 01-05-2023 Non-patient / Non-visit Dr. Fallon Casper Work Phone: [facility] Start: 01-04-2023 Telephone encounter Saranya iraheta MD Work Phone: [facility] [place] Comment on above: Orders Start: 01-04-2023 Non-patient / Non-visit Dr. Fallon Casper Work Phone: [facility] Start: 01-03-2023 Non-patient / Non-visit Dr. Fallon Casper Work Phone: [facility] Start: 01-02-2023 Non-patient / Non-visit Dr. Fallon Casper Work Phone: [facility] Start: 01-01-2023 Non-patient / Non-visit Dr. Fallon Casper Work Phone: [facility] Start: 12-31-2022 End: 01-07-2023 [facility] Start: 10-09-2022 End: 10-09-2022 Patient encounter procedure Saranya Casper MD Work Phone: [facility] [place] Comment on above: Hypothyroidism, unsp ecified type (Primary Dx); Essential hypertension; Vitamin D deficiency; Vitamin B12 deficiency; Marfan's syndrome; Bladder atony; Aortic Root Dilatation; Seizure Disorder Start: 09-15-2022 Refill Saranya Marques Work Phone: [facility] [place] Comment on above: Refill Request Start: 06-03-2022 Telephone encounter Saranya iraheta MD Work Phone: Internal [facility] Comment on above: [employer] update; F [place]-No Action Needed Start: 04-21-2022 End: 04-21-[address] Saranya Casper Work Phone: [facility] Start: 02-24-2022 Non-patient / Non-visit Dr. Fallon Casper Work Phone: [facility] Start: 02-24-2022 End: 02-24-[address] Saranya Casper Work Phone: [facility] Start: 02-16-2022 End: 02-16-[address] Saranya Casper Work Phone: [facility] Start: 02-12-2022 Refill Saranya Marques Work Phone: [facility] Comment on above: Refill Request Start: 01-24-2022 Refill Ashley Noyola APRN, .CNP Work Phone: [facility] Comment on above: Refill Request Start: 01-05-2022 Refill Saranya Marques Work Phone: [facility] Comment on above: Refill Request Start: 12-24-2021 End: 12-24-[address] Saranya Casper Work Phone: [facility] Start: 12-19-2021 Telephone encounter Saranya iraheta MD Work Phone: [facility] Comment on above: Results Start: 12-15-2021 End: 12-15-2021 Patient encounter procedure Saranya Casper MD Work Phone: [facility] [place] Comment on above: Aortic Root Dilatati on (Primary Dx); Hypothyroidism, unspecified type; Essential hypertension; Seizure Disorder; Marfan's syndrome; Vitamin D deficiency; Vitamin B 12 deficiency Start: 06-10-2018 Ambulatory WAGNER DURON Facility :[facility] Start: 12-07-2017 End: 12-07-2017 Ambulatory WAGNER Perez [facility] Start: 12-06-2017 [facility] Procedures Date Procedure Procedure Detail Performing Clinician Start: 01-12-2024 CT angiography of ch est with contrast Dr. Anup Carranza Start: 12-31-2022 Plain chest X-ray Start: 12-15-2021 Lipid 1996 panel - S akash or Plasma Saranya Casper MD Work Phone: Start: 06-13-2018 Adult depression scr eening assessment Saranya Casper MD Work Phone: Bacteria identified in Blood by Culture Dr. Saranya Casper Work Phone: Measurement of occul t blood in stool specimen using immunoassay Dr. Saranya Casper Work Phone: SARS-CoV-2 & FLU Ant igen (Rapid) Urine culture Dr. Saranya iraheta Work Phone: Plan of Treatment Date Care Activity Detail Author Start: 08-04-2027 Urine microalbumin profile [facility] Start: 05-22-2027 Diabetes Screening Diabetes Screenin g [facility] Start: 12-15-2026 Lipid 1996 panel - S akash or Plasma Lipid Screening [facility] Start: 12-15-2026 Lipid panel Lipid Screening [facility] Start: 12-15-2026 LIPID SCREEN LIPID SCREEN [facility] Start: 01-12-2026 Annual PCP [facility] Rn ruthie Disease Visit Annual PCP Team Chronic Disease Visit [facility] Start: 01-12-2026 BP Controlled (<130/80) BP Controlle d (<130/80) [facility] Start: 11-07-2025 LIPID SCREEN LIPID SCREEN [facility] Start: 10-09-2025 DIABETES SCREEN DIABETES SCREEN [facility] Start: 10-09-2025 Diabetes Screening Diabetes Screenin g [facility] Start: 07-16-2025 End: 07-16-2025 Patient encounter procedure 07/16/2025 2:40 PM EST Office Visit [facility] [place] [address] [place] [id number] Saranya Casper MD [address] [place] [address] 6 month f/u [facility] [place] Comment on above: 6 month f/u Start: 05-30-2025 Annual PCP [facility] R[facility] ruthie Disease Visit Annual PCP Team Chronic Disease Visit [facility] Start: 05-30-2025 BP Controlled (<130/80) BP Controlle d (<130/80) [facility] Start: 05-14-2025 Influenza vaccination Influenz a Vaccine (Season Ended) [facility] Start: 03-01-2025 Annual PCP [facility] Rn ruthie Disease Visit Annual PCP Team Chronic Disease Visit [facility] Start: 03-01-2025 BP Controlled (<130/80) BP Controlle d (<130/80) [facility] Start: 03-01-2025 Covid-19 Vaccine ( season) Covid-19 Vaccine ( season) [facility] Comment on above: Postponed from 05/14 (Declined at this time) Start: 03-01-2025 Hepatitis C screening Hepatitis C [facility] Comment on above: Postponed from 10/13 (Declined at this time) Start: 03-01-2025 HIV screening HIV Screening [facility] Comment on above: Postponed from 10/13 (Declined at this time) Start: 01-12-2025 End: 04-13-2025 25-hydroxyvitamin D3 [Mass/volume] in Serum or Plasma VITAMIN D 25 HYDROXY Lab Routine Vitamin D deficiency Expected: 01/12/2025, Expires: 04/13/2025 [facility] Comment on above: Expected: 01/12/2025 , Expires: 04/13/2025 Start: 01-12-2025 End: 04-13-2025 CBC W Auto Differential panel - Blood COMPLETE BLOOD COUNT AND DIFFERENTIAL Lab Routine Annual physical exam Expected: 01/12/2025, Expires: 04/13/2025 [facility] Comment on above: Expected: 01/12/2025 , Expires: 04/13/2025 Start: 01-12-2025 End: 04-13-2025 Comprehensive metabolic 2000 panel - Serum or Plasma COMPREHENSIVE METABOLIC PANEL Lab Routine Annual physical exam Expected: 01/12/2025, Expires: 04/13/2025 [facility] Comment on above: Expected: 01/12/2025 , Expires: 04/13/2025 Start: 01-12-2025 End: 04-13-2025 Thyrotropin [Units/volume] in Serum or Plasma THYROID STIMULATING HORMONE Lab Routine Weight gain Fatigue, unspecified type Expected: 01/12/2025, Expires: 04/13/2025 [facility] Work Phone: Comment on above: Expected: 01/12/2025 , Expires: 04/13/2025 Start: 01-12-2025 End: 01-12-2025 Patient encounter procedure 01/12/2025 1:00 PM EDT Office Visit [facility] [place] [address] [facility] [place], [place] [id number] Saranya Casper MD [address] [facility], [place] [id number] PHYSICAL-pt's mother to bring in guardianship papers. [facility] [place] Comment on above: PHYSICAL-pt's mother to bring in guardianship papers. Start: 12-15-2024 DIABETES SCREEN DIABETES SCREEN [facility] Start: 12-01-2024 End: 12-01-2024 Patient encounter procedure 12/01/2024 4:00 PM EDT Office Visit [facility] [place] [address] [facility] [place] [address] Saranya Casper MD [address] [facility], [place] [phone] PHYSICAL [facility] [place] Comment on above: PHYSICAL Start: 05-30-2024 End: 05-30-2024 Patient encounter procedure 05/30/2024 4:00 PM EDT Office Visit [facility] [place] [address] [facility] [place], [place] [id number] Saranya Casper MD [address] [place] [address] 3 month follow up [facility] [place] Comment on above: 3 month follow up Start: 05-14-2024 Covid-19 Vaccine ( season) Covid-19 Vaccine ( season) [facility] Start: 05-14-2024 Covid-19 Vaccine () Covid-19 Vaccine () [facility] Start: 05-14-2024 Influenza vaccination [facility] Start: 04-28-2024 ANNUAL PCP TEAM MEDICAL OFFICE ASST RUTHIE DISEASE VISIT ANNUAL PCP TEAM CHRONIC DISEASE VISIT [facility] Start: 04-28-2024 HEPATITIS B (1 of 3 - 3-dose series) HEPATITIS B (1 of 3 - 3-dose series) [facility] Comment on above: Postponed from 10/13 (Declined at this time) Start: 04-28-2024 Hepatitis B Vaccine (1 of 3 - 19+ 3-dose series) Hepatitis B Vaccine (1 of 3 - 19+ 3-dose series) [facility] Comment on above: Postponed from 10/13 (Declined at this time) Start: 04-28-2024 Hepatitis B Vaccine (1 of 3 - 3-dose series) Hepatitis B Vaccine (1 of 3 - 3-dose series) [facility] Comment on above: Postponed from 10/13 (Declined at this time) Start: 03-01-2024 End: 05-31-2024 CBC panel - Blood by Automated count COMPLETE BLOOD COUNT Lab Routine Essential hypertension Expected: 03/01/2024, Expires: 05/31/2024 [facility] Comment on above: Expected: 03/01/2024 , Expires: 05/31/2024 Start: 03-01-2024 End: 05-31-2024 Comprehensive metabolic 2000 panel - Serum or Plasma COMPREHENSIVE METABOLIC PANEL Lab Routine Essential hypertension Expected: 03/01/2024, Expires: 05/31/2024 [facility] Comment on above: Expected: 03/01/2024 , Expires: 05/31/2024 Start: 03-01-2024 End: 05-31-2024 Thyrotropin [Units/volume] in Serum or Plasma THYROID STIMULATING HORMONE Lab Routine Hypothyroidism, unspecified type Expected: 03/01/2024, Expires: 05/31/2024 [facility] Work Phone: Comment on above: Expected: 03/01/2024 , Expires: 05/31/2024 Start: 03-01-2024 End: 05-31-2024 Thyroxine (T4) free [Mass/volume] in Serum or Plasma T4 FREE/FREE THYROXINE Lab Routine Hypothyroidism, unspecified type Expected: 03/01/2024, Expires: 05/31/2024 [facility] Comment on above: Expected: 03/01/2024 , Expires: 05/31/2024 Start: 02-16-2024 ANNUAL PCP TEAM MEDICAL OFFICE ASST RUTHIE DISEASE VISIT ANNUAL PCP TEAM CHRONIC DISEASE VISIT [facility] Start: 02-16-2024 BP CONTROLLED (<130/80) BP CONTROLLE D (<130/80) [facility] Start: 11-07-2023 DIABETES SCREEN DIABETES SCREEN [facility] Start: 10-09-2023 ANNUAL PCP TEAM MEDICAL OFFICE ASST RUTHIE DISEASE VISIT ANNUAL PCP TEAM CHRONIC DISEASE VISIT [facility] Start: 10-09-2023 BP CONTROLLED (<130/80) BP CONTROLLE D (<130/80) [facility] Start: 09-13-2023 Behavioral Health Screening Behavioral Health Screening [facility] Start: 05-14-2023 Covid-19 Vaccine ( season) Covid-19 Vaccine ( season) [facility] Start: 05-14-2023 Influenza vaccination [facility] Start: 04-28-2023 End: 06-28-2023 CBC W Auto Differential panel - Blood CBC + DIFF Lab Routine Essential hypertension Expected: 04/28/2023, Expires: 06/28/2023 [facility] Work Phone: Comment on above: Expected: 04/28/2023 , Expires: 06/28/2023 Start: 04-28-2023 End: 06-28-2023 Comprehensive metabolic 2000 panel - Serum or Plasma COMP METABOLIC PANEL Lab Routine Essential hypertension Hyperlipidemia, unspecified hyperlipidemia type Expected: 04/28/2023, Expires: 06/28/2023 [facility] Work Phone: Comment on above: Expected: 04/28/2023 , Expires: 06/28/2023 Start: 04-28-2023 End: 06-28-2023 Lipid 1996 panel - Serum or Plasma LIPID PANEL BASIC Lab Routine Hyperlipidemia, unspecified hyperlipidemia type Expected: 04/28/2023, Expires: 06/28/2023 [facility] Work Phone: Comment on above: Expected: 04/28/2023 , Expires: 06/28/2023 Start: 04-28-2023 End: 06-28-2023 Thyrotropin [Units/volume] in Serum or Plasma TSH BLD Lab Routine Hypothyroidism, unspecified type Expected: 04/28/2023, Expires: 06/28/2023 [facility] Work Phone: Comment on above: Expected: 04/28/2023 , Expires: 06/28/2023 Start: 02-15-2023 End: 04-17-2023 Bacteria identified in Urine by Culture URINE CULTURE Microbiology Routine Urinary tract infection without hematuria, site unspecified Expected: 02/15/2023, Expires: 04/17/2023 [facility] Work Phone: Comment on above: Expected: 02/15/2023 , Expires: 04/17/2023 Start: 02-15-2023 End: 04-17-2023 Urinalysis complete panel - Urine URINALYSIS, WITH MICROSCOPIC Lab Routine Urinary tract infection without hematuria, site unspecified Expected: 02/15/2023, Expires: 04/17/2023 [facility] Work Phone: Comment on above: Expected: 02/15/2023 , Expires: 04/17/2023 Start: 01-11-2023 Blood chemistry [facility] Start: 01-10-2023 Blood chemistry [facility] Start: 01-09-2023 Blood chemistry [facility] Start: 01-08-2023 Blood chemistry [facility] Start: 01-07-2023 Patient discharge [facility] Start: 01-07-2023 [facility] Start: 01-06-2023 Introduction of urin anoop catheter [facility] Start: 01-04-2023 Consultation [facility] Start: 01-01-2023 Referral to service [facility] Start: 01-01-2023 [facility] Start: 12-31-2022 Following clinical pathway protocol [facility] Start: 12-31-2022 Aspiration precautions [facility] Start: 12-31-2022 Assessment of risk o f venous thromboembolism [facility] Start: 12-31-2022 Fall prevention [facility] Start: 12-31-2022 Inhalation therapy procedure [facility] Start: 12-31-2022 Insertion of cathete r into peripheral vein [facility] Start: 12-31-2022 Introduction of urin anoop catheter [facility] Start: 12-31-2022 Measuring intake and output [facility] Start: 12-31-2022 Providing care accor ding to standard [facility] Start: 12-31-2022 Provision of activit y privileges [facility] Start: 12-31-2022 Referral to occupati onal therapist [facility] Start: 12-31-2022 Referral to service [facility] Start: 12-31-2022 Verification routine [facility] Start: 12-31-2022 Admission procedure [facility] Start: 12-31-2022 End: 12-31-2022 [facility] Start: 12-31-2022 End: 12-31-2022 Blood culture [facility] Start: 12-15-2022 ANNUAL PCP TEAM MEDICAL OFFICE ASST RUTHIE DISEASE VISIT ANNUAL PCP TEAM CHRONIC DISEASE VISIT [facility] Start: 12-15-2022 BP CONTROLLED (<130/80) BP CONTROLLE D (<130/80) [facility] Start: 10-09-2022 End: 10-09-2023 25-hydroxyvitamin D3 [Mass/volume] in Serum or Plasma [facility] Work Phone: Comment on above: Expected: 10/09/2022 , Expires: 10/09/2023 Start: 10-09-2022 End: 12-09-2022 Basic metabolic 2000 panel - Serum or Plasma [facility] Work Phone: Comment on above: Expected: 10/09/2022 , Expires: 12/09/2022 Start: 10-09-2022 End: 12-09-2022 CBC W Auto Differential panel - Blood [facility] Work Phone: Comment on above: Expected: 10/09/2022 , Expires: 12/09/2022 Start: 10-09-2022 End: 10-09-2023 Cobalamin (Vitamin B12) [Mass/volume] in Serum or Plasma [facility] Work Phone: Comment on above: Expected: 10/09/2022 , Expires: 10/09/2023 Start: 10-09-2022 End: 12-09-2022 Thyrotropin [Units/volume] in Serum or Plasma [facility] Work Phone: Comment on above: Expected: 10/09/2022 , Expires: 12/09/2022 Start: 09-13-2022 [facility]: 05-14-2022 Influenza vaccination [facility] Start: 12-15-2021 End: 02-14-2022 CBC W Auto Differential panel - Blood [facility] Work Phone: Comment on above: Expected: 12/15/2021 , Expires: 02/14/2022 Start: 12-15-2021 End: 02-14-2022 Comprehensive metabolic 2000 panel - Serum or Plasma [facility] Work Phone: Comment on above: Expected: 12/15/2021 , Expires: 02/14/2022 Start: 12-15-2021 End: 02-14-2022 LIPID PANEL BASIC [facility] Work Phone: Comment on above: Expected: 12/15/2021 , Expires: 02/14/2022 Start: 12-15-2021 End: 02-14-2022 LIPID PANEL, NONFASTING LIPID PANEL, NONFASTING Lab Routine Essential hypertension Expected: 12/15/2021, Expires: 02/14/2022 [facility] Work Phone: Comment on above: Expected: 12/15/2021 , Expires: 02/14/2022 Start: 12-15-2021 End: 12-15-2022 T3 FREE BLD T3 FREE BLD Lab Routine Hypothyroidism, unspecified type Expected: 12/15/2021, Expires: 12/15/2022 [facility] Work Phone: Comment on above: Expected: 12/15/2021 , Expires: 12/15/2022 Start: 12-15-2021 End: 12-15-2022 T4 FREE/FREE THYROX T4 FREE/FREE THYROX Lab Routine Hypothyroidism, unspecified type Expected: 12/15/2021, Expires: 12/15/2022 [facility] Work Phone: Comment on above: Expected: 12/15/2021 , Expires: 12/15/2022 Start: 12-15-2021 End: 02-14-2022 Thyrotropin [Units/volume] in Serum or Plasma [facility] Work Phone: Comment on above: Expected: 12/15/2021 , Expires: 02/14/2022 Start: 12-15-2021 End: 12-15-2022 VITAMIN B12 BLOOD [facility] Work Phone: Comment on above: Expected: 12/15/2021 , Expires: 12/15/2022 Start: 12-15-2021 End: 12-15-2022 VITAMIN D 25 HYDROXY [facility] Work Phone: Comment on above: Expected: 12/15/2021 , Expires: 12/15/2022 Start: 2021 COLOGUARD (FIT-DNA) COLOGUARD (FIT-D NA) [facility] Start: 2021 Colonoscopy COLONOSCOPY [facility] Start: 2021 COLORECTAL CANCER SCREENING COLORECTAL CANCER SCREENING [facility] Start: [address] COLONOGRAPHY [facility] Start: 2021 FECAL OCCULT BLOOD FECAL OCCULT BLOO D [facility] Start: 2021 Screening for malign ant neoplasm of colon [facility] Start: 2021 SIGMOIDOSCOPY SIGMOIDOSCOPY [facility] Start: 02-08-2020 BP CONTROLLED (<130/80) BP CONTROLLE D (<130/80) [facility] Start: 06-13-2019 Adult depression screening assessment DEPRESSION SCREENING [facility] Start: 1995 Hepatitis B Vaccine (1 of 3 - 19+ 3-dose series) Hepatitis B Vaccine (1 of 3 - 19+ 3-dose series) [facility] Start: 1994 Anxiety Screening Anxiety Screening [facility] Start: 1994 Depression Screening Depression Scre ening [facility] Start: 1994 HEPATITIS C SCREENING HEPATITIS C [facility] Start: 1994 Hepatitis C screening Hepatitis C [facility] Start: 1994 HIV SCREENING HIV SCREENING [facility] Start: 1994 HIV screening HIV Screening [facility] Start: 1981 COVID-19 VACCINE (#1) COVID-19 VACCI NE (#1) [facility] Start: 1981 COVID-19 VACCINE (1) COVID-19 VACCIN E (1) [facility] Start: 04-12-1977 COVID-19 VACCINE (#1) COVID-19 VACCI NE (#1) [facility] Start: 1976 HEPATITIS B (1 of 3 - 3-dose series) HEPATITIS B (1 of 3 - 3-dose series) [facility] Bacteria identified in Blood by Culture Blood Culture [facility] Bacteria identified in Urine by Culture Urine Culture [facility] Blood ammonia measurement [facility] Blood ammonia measurement [facility] Blood ammonia measurement [facility] Blood ammonia measurement [facility] Patient Education Lactulose Oral solution [Encephalopathy] ED Fall Prevention [facility] Work Phone: Patient referral [facility] Work Phone: [facility] Vancomycin [Mass/vol ume] in Serum or Plasma --trough [facility] Immunizations Immunization Date Immunization Notes Care Provider Jenelle willis 08-04-2017 influenza, injectabl e, quadrivalent, contains preservative Saranya Casper MD Work Phone: [facility] 08-04-2017 tetanus toxoid, redu danni diphtheria toxoid, and acellular pertussis vaccine, adsorbed Saranya Casper MD Work Phone: [facility] 08-04-2017 influenza virus vaccine, unspecified formulation Saranya Casper MD Work Phone: [facility] 07-17-2014 influenza, seasonal, injectable Saranya Casper MD Work Phone: [facility] Work Phone: Payers Date Payer Category Payer Self-pay [id number] 2023 Unknown [id number] 2018 Medicare [facility] [employer] [facility] [id number] 2018-Present [phone] [address] [place] [address] Medicare [id number] 2018 Medicare (Managed Care) [employer] C [employer] [id number] 2018 Medicaid [id number] 2018 Medicare [id number] 2018 Medicare [id number] Unknown [id number] Unknown [id number] Unknown [id number] Unknown [id number] Unknown [id number] Social History Date Type Detail Facility Start: 05-02-2013 Tobacco smoking stat us NHIS Never smoked tobacco [facility] Work Phone: Start: 12-15-2021 End: 01-12-2025 Alcohol intake Current non-drinker of alcohol (finding) [facility] Start: 1975 Sex Assigned At Not on file [facility] Start: 12-05-2021 End: 12-15-2021 Exposure to SARS-CoV-2 (event) Not sure [facility] Work Phone: Start: 12-24-2021 End: 12-02-2023 Tobacco smoking status NHIS Unknown if ever smoked [facility] Start: 04-24-2020 None [facility] Start: 04-24-2020 None;- [facility] Start: 04-24-2020 With Family [facility] Start: 1975 Sex Assigned At Male [facility] Start: 05-02-2013 Tobacco use and exposure Smokeless tobacco non-user [facility] Work Phone: Start: 02-03-2023 End: 02-15-2023 History of Social function [facility] Work Phone: Start: 02-03-2023 End: 02-15-2023 Tobacco use panel [facility] Work Phone: Adult Depression Screening Assessment 0 [facility] Work Phone: Goals Date Patient Goal Desired Activity /State Personal health goal Functional Status Date Assessment Result Facility 01-07-2023 Functional status Ambulates [facility] Work Phone: 04-19-2015 Are you deaf, or do you have serious difficulty hearing No 04/19/2015 1:03 PM EDT Suzanne Chavez LPN No [facility] 04-19-2015 Are you blind, or do you have serious difficulty seeing, even when wearing glasses No 04/19/2015 1:03 PM EDT Suzanne Chavez LPN No [facility] 04-19-2015 Do you have serious difficulty walking or climbing stairs Yes 04/19/2015 1:03 PM EDT Suzanne Chavez LPN Yes [facility] 04-19-2015 Do you have difficul ty dressing or bathing Yes 04/19/2015 1:03 PM EDT Suzanne Chavez LPN Yes [facility] 04-19-2015 Because of a physica l, mental, or emotional condition, do you have difficulty doing errands alone such as visiting a physician's office or shopping Yes 04/19/2015 1:03 PM EDT Suzanne Chavez LPN Yes [facility] Mental Status Date Assessment Result Facility 01-07-2023 Cognitive function Voice/Name [facility] Work Phone: 12-31-2022 Cognitive function Level Of Cons ciousness Awake;Alert [facility] Work Phone: 04-19-2015 Because of a physica l, mental, or emotional condition, do you have serious difficulty concentrating, remembering, or making decisions Yes 04/19/2015 1:03 PM EDSuzanne Gallegos LPN Yes [facility] Clinical Notes 07-30-2005 to 07-03-2025 Addendum Note - Saranya Casper MD - 01/12/2025 3:30 PM EDTAddendum Note - Saranya Casper MD - 01/12/2025 3:30 PM Saranya Leahy MD - 01/12/2025 1:36 PM EDTPatient InstructionsPatient Instructions Note Date & Type Note Facility 07-03-2025 Note Patient Outreach (IN [facility]) KIRTIGEORGES Zeynep ([id number]) 1975 M Date Time Provider Department 07/03/25 SARANYA CASPER During your visit today, we recorded the following information about you: Allergies As of Date: 07/03/2025 (No Known Allergies) Date Reviewed: 01/12/2025 Reviewed by: Dolores Luna LPN - Fully Assessed Visit Diagnoses:Essential hypertension [I10] Hypothyroidism [E03.9] Order(s):BASIC METABOLIC PANEL [SQBMP] Order #: [id number] FUTURE THYROID STIMULATING HORMONE [SQTSH] Order #: [id number] FUTURE Prescriptions as of 07/06/2025 - levothyroxine (SYNTHROID) 75 mcg tablet Take 1 tablet by mouth once daily. daily - potassium chloride 20 mEq TbER Take 1 tablet by mouth once daily. - PHENobarbital 32.4 mg tablet Take 1 tablet by mouth two times a day. - ergocalciferol 50,000 unit capsule (VITAMIN D2, DRISDOL) Take 1 capsule by mouth two times a week. TO BE TAKEN ORALLY DIRECTED. Take 1 tablet by mouth twice weekly - divalproex DR (DEPAKOTE) 500 mg EC tablet Takes 3 pills in the AM and 3 pills at PM - clonazePAM (KLONOPIN) 0.5 mg tablet Take 1 tablet by mouth twice daily for 90 days. - Comp Stocking,Knee,Long,Medium misc 1 Each once daily. - multivitamin tablet Take 1 tablet by mouth once daily. Problem List As Of Date 07/03/2025 Noted Resolved Calculus of Kidney [N20.0] 07/30/2005 01/02/2010 Urinary Tract Infection, Site not Specified [N3*07/30/2005 01/02/2010 Prostate Enlargement [N40.0] 01/02/2010 Intellectual disability [F79] 01/02/2010 Seizure Disorder [G40.909] 01/02/2010 Marfan's syndrome [Q87.40] 01/03/2010 Aortic Root Dilatation [I77.810] 01/29/2010 Bladder atony [N31.2] 12/26/2013 Pedal edema [R60.0] 11/05/2015 Essential hypertension [I10] 11/05/2015 Hypothyroidism [E03.9] 03/21/2018 Encounter Status:Closed by NARENDRA D ELEÓN on 07/06/25 [facility] 01-12-2025 Note Addended by: SARANYA CASPER on: 01/12/2025 03:30 PM Modules accepted: Level of Service [facility] 01-12-2025 Miscellaneous Notes Addended by: SARANYA CASPER on: 01/12/2025 03:30 PM Modules accepted: Level of Service documented in this encounter [facility] 01-12-2025 Note HNO ID: [id number] Author: SARANYA CASPER MD Service: ? Author Type: Physician Type: Progress Notes Filed: 01/12/2025 13:43 Note Text: Reason for Visit Follow up ERICA Su is a 49-year-old male with a history of seizure disorder, intellectual disability, and Marfan syndrome, presenting for a physical exam, accompanied by his mother, who is providing history on his behalf. Georges has a history of Marfan syndrome with multiple complications, including a troponotic aneurysm, which he and his family decided not to pursue treatment for. He also has a history of seizure disorder, for which he is taking medication, and has not had any seizures since his last visit. He is also taking phenobarbital, thyroid medication, and vitamin D. Georges is reportedly doing well at home, with no recent rashes or infections. He is eating well, but has decreased mobility due to balance issues. He is able to stand and walk, but has difficulty with stairs and requires assistance at times. He spends most of his time sitting on his bed and watching TV, and uses a wheelchair for longer distances. He has a portable toilet in his room for nighttime use, and is able to use the regular toilet during the day with assistance. He is able to urinate independently, but requires assistance with bowel movements and hygiene. Georges enjoys watching TV, listening to music, and singing along to his favorite songs. He is able to communicate his needs and preferences, and is generally happy and content. He is compliant with his medication regimen, with occasional reminders from his mother. He has not had any recent issues with his thyroid medication, and his blood pressure is reportedly stable. Social History Tobacco Use Smoking status: Never Smokeless tobacco: Never Substance Use Topics Alcohol use: No Drug use: No Past medical history, appointments, medications, allergies reviewed. Pertinent Lab/Diagnostic Studies are reviewed and discussed today Current Outpatient Medications: PHENobarbital 32.4 mg tablet levothyroxine (SYNTHROID) 75 mcg tablet potassium chloride [address] (DEPAKOTE) 500 mg EC tablet clonazePAM (KLONOPIN) 0.5 mg tablet Comp Stocking,Knee,Long,Medium misc multivitamin tablet ergocalciferol 50,000 unit capsule (VITAMIN D2, DRISDOL) Health Maintenance Depression Screening Anxiety Screening Hepatitis B Vaccine(1 + 3-dose series) Colorectal Cancer Screening Covid-19 Vaccine( season)@ Review Of Systems Genitourinary: (+) nocturnal incontinence Musculoskeletal: (+) difficulty ambulating Skin: (+) pruritus, (-) rash Neurological: (+) balance problems, (-) seizures Physical Exam BP 106/79 Pulse 97 Resp 16 Ht 188 cm (6' 2) Wt 81.6 kg (180 lb) BMI 23.11 kg/m? GENERAL: NAD, alert and oriented SKIN: Multiple scratch best noted on back and face. HEAD: normocephalic EYES: PERRLA, EOMI, conjunctiva clear EARS: external ears normal, canals clear, TM's normal. LUNGS: Clear to auscultation bilaterally, no wheezes/rhonchi/rales. HEART: Regular rate and rhythm, no murmurs. No ectopy. EXTREMITIES: Normal, No deformities, No skin discoloration, No edema. NEURO: Awake, alert and oriented x3, cranial nerves II-XII grossly intact, normal gait, no involuntary motions Labs: (May) Thyroid function test: Abnormal thyroid levels noted, likely related to missed medication doses. Assessment and Plan 1. Annual physical exam (00.00) Patient is a 49-year-old male with a history of seizure disorder, mental retardation, and Marfan syndrome. He is accompanied by his mother and granddaughter, who assist with his care. Patient is non-verbal and has limited mobility, primarily using a wheelchair at home. He is able to stand and walk short distances but has balance issues. He spends most of his time watching TV and listening to music. He is able to use a tonie-potty at night and a regular toilet during the day with assistance. He is able to take his medications with assistance from his mother. He has a history of scratching himself, and his nails are long and dirty. He has a history of missing doses of his thyroid medication. He has not had any seizures since his last visit. He is currently taking Depakote, phenobarbital, thyroid medication, and vitamin D. - Educated patient and family on the importance of regular exercise to maintain mobility and prevent contractures. Recommended leg exercises and using a stress ball to improve hand strength. - Advised soaking hands in warm water to soften nails for easier trimming. - Scheduled follow-up in 6 months with blood work to be done at that time. 2. Vitamin D deficiency (E55.9) Patient is currently taking vitamin D supplementation. Continue current vitamin D supplementation. 3. Fatigue, unspecified type (R53.83) Patient has limited mobility and spends most of his time sitting or lyin (more content not included)... [facility] 01-12-2025 History of Presen t illness Narrative Reason for Visit Follow up ERICA Su is a 49-year-old male with a history of seizure disorder, intellectual disability, and Marfan syndrome, presenting for a physical exam, accompanied by his mother, who is providing history on his behalf. Georges has a history of Marfan syndrome with multiple complications, including a troponotic aneurysm, which he and his family decided not to pursue treatment for. He also has a history of seizure disorder, for which he is taking medication, and has not had any seizures since his last visit. He is also taking phenobarbital, thyroid medication, and vitamin D. Georges is reportedly doing well at home, with no recent rashes or infections. He is eating well, but has decreased mobility due to balance issues. He is able to stand and walk, but has difficulty with stairs and requires assistance at times. He spends most of his time sitting on his bed and watching TV, and uses a wheelchair for longer distances. He has a portable toilet in his room for nighttime use, and is able to use the regular toilet during the day with assistance. He is able to urinate independently, but requires assistance with bowel movements and hygiene. Georges enjoys watching TV, listening to music, and singing along to his favorite songs. He is able to communicate his needs and preferences, and is generally happy and content. He is compliant with his medication regimen, with occasional reminders from his mother. He has not had any recent issues with his thyroid medication, and his blood pressure is reportedly stable. Social History Tobacco Use Smoking status: Never Smokeless tobacco: Never Substance Use Topics Alcohol use: No Drug use: No Past medical history, appointments, medications, allergies reviewed. Pertinent Lab/Diagnostic Studies are reviewed and discussed today Current Outpatient Medications: PHENobarbital 32.4 mg tablet levothyroxine (SYNTHROID) 75 mcg tablet potassium chloride [address] (DEPAKOTE) 500 mg EC tablet clonazePAM (KLONOPIN) 0.5 mg tablet Comp Stocking,Knee,Long,Medium misc multivitamin tablet ergocalciferol 50,000 unit capsule (VITAMIN D2, DRISDOL) Health Maintenance Depression Screening Anxiety Screening Hepatitis B Vaccine( of + 3-dose series) Colorectal Cancer Screening Covid-19 Vaccine( season)@ Review Of Systems Genitourinary: (+) nocturnal incontinence Musculoskeletal: (+) difficulty ambulating Skin: (+) pruritus, (-) rash Neurological: (+) balance problems, (-) seizures Physical Exam BP 106/79 Pulse 97 Resp 16 Ht 188 cm (6' 2) Wt 81.6 kg (180 lb) BMI 23.11 kg/m GENERAL: NAD, alert and oriented SKIN: Multiple scratch best noted on back and face. HEAD: normocephalic EYES: PERRLA, EOMI, conjunctiva clear EARS: external ears normal, canals clear, TM's normal. LUNGS: Clear to auscultation bilaterally, no wheezes/rhonchi/rales. HEART: Regular rate and rhythm, no murmurs. No ectopy. EXTREMITIES: Normal, No deformities, No skin discoloration, No edema. NEURO: Awake, alert and oriented x3, cranial nerves II-XII grossly intact, normal gait, no involuntary motions Labs: (May) Thyroid function test: Abnormal thyroid levels noted, likely related to missed medication doses. Assessment and Plan 1. Annual physical exam (Z00.00) Patient is a 49-year-old male with a history of seizure disorder, mental retardation, and Marfan syndrome. He is accompanied by his mother and granddaughter, who assist with his care. Patient is non-verbal and has limited mobility, primarily using a wheelchair at home. He is able to stand and walk short distances but has balance issues. He spends most of his time watching TV and listening to music. He is able to use a tonie-potty at night and a regular toilet during the day with assistance. He is able to take his medications with assistance from his mother. He has a history of scratching himself, and his nails are long and dirty. He has a history of missing doses of his thyroid medication. He has not had any seizures since his last visit. He is currently taking Depakote, phenobarbital, thyroid medication, and vitamin D. - Educated patient and family on the importance of regular exercise to maintain mobility and prevent contractures. Recommended leg exercises and using a stress ball to improve hand strength. - Advised soaking hands in warm water to soften nails for easier trimming. - Scheduled follow-up in 6 months with blood work to be done at that time. 2. Vitamin D deficiency (E55.9) Patient is currently taking vitamin D supplementation. Continue current vitamin D supplementation. 3. Fatigue, unspecified type (R53.83) Patient has limited mobility and spends most of his time sitting or lying down, which may contribute to fatigue. Encouraged regular physical activity to improve energy levels and overall health. 4. Weight gain (R63.5) Patient has a sedentary lifestyle, which may contribute to weight gain. Encouraged regular physical activity to maintain a healthy weight. 5. Seizure disorder ([facility]) (G40.909) Seizure disorder is well-controlled with current medication regimen. No seizures reported since last visit. Continue current seizure medication regimen. 6. Marfan syndrome ([facility]) (Q87.40) Patient has a history of Marfan syndrome with multiple associated issues, including a thoracic aortic aneurysm. Continue monitoring for any changes or complications related to Marfan syndrome. 7. Hypothyroidism, unspecified type (E03.9) Patient has a history of missing doses of thyroid medication, which may contribute to fluctuations in thyroid levels. - Emphasized the importance of taking thyroid medication consistently and as prescribed. - Scheduled follow-up in 6 months with blood work to monitor thyroid levels. 8. Thoracic aortic aneurysm without rupture, unspecified part (I71.20) Patient has a history of a thoracic aortic aneurysm associated with Marfan syndrome. No intervention pursued at this time. Continue monitoring for any changes or complications related to the aneurysm. Voice recognition software was used to compose this office note. Please excuse any unintended typographical errors. Recording using ambient AI software for draft documentation of the visit was discussed with the patient/authorized inside sales account representative; all questions welcomed and answered. Patient/authorized inside sales account representative agreed to proceed Saranya Casper MD documented in this encounter [facility] 01-12-2025 Instructions Saranya Casper MD - 01/12/2025 1:30 PM EDT We discussed your overall health and care plan: - Your seizure disorder is well-managed, and you have not had any seizures since your last visit. Please continue taking your seizure medication as prescribed. - Continue taking your thyroid medication daily. It is important to take it on an empty stomach and wait at least 30 minutes before eating. If you have difficulty with this, let us know. - Continue taking your vitamin D supplement as prescribed. We discussed your mobility and activity: - You are able to stand and walk but have some balance issues. Please try to move your legs up and down during the day to maintain flexibility and prevent stiffness. - Use a ball or similar object to squeeze with your hands to help maintain hand strength. We discussed your hygiene and grooming: - Your nails need regular trimming. To make this easier, soak your hands in warm water for 10-15 minutes to soften the nails and clean them. - Continue using wipes for cleaning as needed. If possible, have assistance for baths or showers to ensure thorough hygiene. We discussed your skin: - You have been scratching yourself frequently, which has caused best on your skin. To help reduce this, keep your nails trimmed and clean. If the scratching persists or worsens, let us know. We discussed your upcoming care: - I will see you again in 6 months. At that time, we will need to check your blood work. This does not need to be fasting. You can have this done at the clinic downstairs or inquire if home health services can assist with drawing blood at home. Please let us know if you have any questions or concerns before your next visit. documented in this encounter [facility] 12-13-2024 Telephone encounter Note Deysi from [facility] calling in as she states she just had a visit with pt and his guardian who is his mother Jacki. Deysi states that Jacki would like to switch to a pharmacy with pre packaged medications. Deysi asking if provider can refer them to [facility]. Explained that Deysi would be able to call [facility] and have pt's scripts sent to them. She states she will go ahead and do that. Called to speak with pt and mother Jacki answers the phone. She attempted to get pt on the phone to speak with nurse but pt would not talk and mother states he doesn't know his birthday. Note in chart. Asked Jacki if she wants to change pharmacies to [facility] which she confirmed. Also she is pt's guardian and does have paperwork noting that. She will bring that with her to the next appointment. [facility] 12-13-2024 Miscellaneous Notes Deysi from [facility] calling in as she states she just had a visit with pt and his guardian who is his mother Jacki. Deysi states that Jacki would like to switch to a pharmacy with pre packaged medications. Deysi asking if provider can refer them to [facility]. Explained that Deysi would be able to call [facility] and have pt's scripts sent to them. She states she will go ahead and do that. Called to speak with pt and mother Jacki answers the phone. She attempted to get pt on the phone to speak with nurse but pt would not talk and mother states he doesn't know his birthday. Note in chart. Asked Jacki if she wants to change pharmacies to [facility] which she confirmed. Also she is pt's guardian and does have paperwork noting that. She will bring that with her to the next appointment. documented in this encounter [facility] 12-13-2024 Telephone encounter Note Manda calling with [facility]. They have pt's referral and requesting further information. Faxed as requested to [phone]. Marion Velez RN [facility] 12-13-2024 Miscellaneous Notes Manda calling with [facility]. They have pt's referral and requesting further information. Faxed as requested to [phone]. Marion Velez RN documented in this encounter [facility] 09-29-2024 Telephone encounter Note Order, facesheet and JUAN JOSE faxed to [facility] Called and left update message on Voicemail for Deysi with [facility], that order has been faxed. Sally Elam LPN September 29, 2024 10:57 AM [facility] 09-29-2024 Miscellaneous Notes Order, facesheet and JUAN JOSE faxed to [facility] Called and left update message on Voicemail for Deysi with [facility], that order has been faxed. Sally Elam LPN September 29, 2024 10:57 AM Referral is placed, in our system, please print. Thank you Regards, Saranya Casper MD Facesheet printed and forwarded to Dr London Elam LPN September 28, 2024 10:07 AM Spoke with mother and she reports, the concerns are the same onychomycosis and also the DX L60.8 other nail disorders. Elizabeth Godfrey LPN Can we know what exactly is the concern of the mother with regards to the toes? Or the reasons she wants podiatry to see the patient? I think most likely it is onychomycosis but she may have other concerns, Also, where is the face sheet for the patient? Please get that for me to fill Thank you Regards, Saranya Casepr MD Deysi Harris, briefcase sewer with [facility] calling to let you know, pt's mother has requested a referral to [facility] has been found and they need the followin)referral to [facility] 2)face sheet 3) last OV from Dr. Casper (May) 4)ICD codes need to be on the referral L60.8 5)fax number [phone] Please advise Deysi when this has been done. Elizabeth Godfrey LPN documented in this encounter [facility] 09-29-2024 Telephone encounter Note Referral is placed, in our system, please print. Thank you Regards, Saranya Casper MD [facility] 09-28-2024 Telephone encounter Note Facesheet printed and forwarded to Dr London Elam LPN September 28, 2024 10:07 AM [facility] 09-28-2024 Telephone encounter Note Spoke with mother and she reports, the concerns are the same onychomycosis and also the DX L60.8 other nail disorders. Elizabeth Godfrey LPN [facility] 09-28-2024 Telephone encounter Note Can we know what exactly is the concern of the mother with regards to the toes? Or the reasons she wants podiatry to see the patient? I think most likely it is onychomycosis but she may have other concerns, Also, where is the face sheet for the patient? Please get that for me to fill Thank you Regards, Saranya Casper MD [facility] 09-27-2024 Telephone encounter Note Deysi Harris, briefcase sewer with [facility] calling to let you know, pt's mother has requested a referral to [facility] has been found and they need the followin)referral to [facility] 2)face sheet 3) last OV from Dr. Casper (May) 4)ICD codes need to be on the referral L60.8 5)fax number [phone] Please advise Deysi when this has been done. Elizabeth Godfrey LPN [facility] 06-28-2024 Telephone encounter Note The patient has been identified by name and date of : Yes Caregiver verified no other encounters exist for this prescription request: Yes Caregiver confirmed with patient/requestor that no other refills are due, in the near future, with this provider at this time: Yes The last office visit in the department: 05/30/2024 Does the patient have a future office visit with this provider/department: Yes 12/01/2024 Requested Prescriptions Pending Prescriptions Disp Refills levothyroxine (SYNTHROID) 75 mcg tablet 90 tablet 3 Sig: Take 1 tablet by mouth once daily. daily potassium chloride 20 mEq TbER 30 tablet 5 Sig: Take 1 tablet by mouth once daily. Geovanna Rob RN June 28, 2024 12:44 PM [facility] 06-28-2024 Miscellaneous Notes The patient has been identified by name and date of : Yes Caregiver verified no other encounters exist for this prescription request: Yes Caregiver confirmed with patient/requestor that no other refills are due, in the near future, with this provider at this time: Yes The last office visit in the department: 05/30/2024 Does the patient have a future office visit with this provider/department: Yes 12/01/2024 Requested Prescriptions Pending Prescriptions Disp Refills levothyroxine (SYNTHROID) 75 mcg tablet 90 tablet 3 Sig: Take 1 tablet by mouth once daily. daily potassium chloride 20 mEq TbER 30 tablet 5 Sig: Take 1 tablet by mouth once daily. Geovanna Rob RN June 28, 2024 12:44 PM documented in this encounter [facility] 06-09-2024 Telephone encounter Note Pts mother was calling in to get Pt Potassium refilled. Let her know he should be good through September. I let her know that sometimes they will put a new Rx on hold if they are using refills they already have. She is going to call the pharmacy. [facility] 09-27-2024 Miscellaneous Notes Pts mother was calling in to get Pt Potassium refilled. Let her know he should be good through September. I let her know that sometimes they will put a new Rx on hold if they are using refills they already have. She is going to call the pharmacy. documented in this encounter [facility] 05-31-2024 Telephone encounter Note Statement of expert evaluation form completed by PCP at 05/30/24 OV. Form labeled and sent to scanning. Sue Bedoya MA [facility] 05-31-2024 Miscellaneous Notes Statement of expert evaluation form completed by PCP at 05/30/24 OV. Form labeled and sent to scanning. Sue Bedoya MA documented in this encounter [facility] 05-30-2024 Instructions Saranya Casper MD - 05/30/2024 4:32 PM EDT Please give him one and a half pills of his thyroid medication for 8 days. documented in this encounter [facility] 05-30-2024 History of Presen t illness Narrative Reason for Visit Patient presents with: Follow Up Georges Cotto is a 48 year old male who presents here today for Above Complaints.. Health Maintenance Depression Screening Anxiety Screening Hepatitis B Vaccine(1 of 3 - 19+ 3-dose series) Colorectal Cancer Screening Covid-19 Vaccine( season) Influenza Vaccine(1) HPI Georges Jj is a 48-year-old patient with MRDD, seizure disorder, Marfan syndrome and dilated aortic root of 5 cm. The patient also has hypertension. He is here to get his guardian papers filled. With his severe mental retardation he is unable to make decisions for himself at the financial or medical related. He is not oriented, he is mostly nonverbal and cannot have a conversation or answer your questions. He can though let you know if he likes something 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 Marfan's syndrome PMH - PAST MEDICAL HISTORY OF dislocated lenses r/t marfans Urinary tract infection, site not specified PAST SURGICAL HISTORY Procedure Laterality Date PAST SURGICAL HISTORY OF 1993 hamstring lengthening bilateral PAST SURGICAL HISTORY OF age 7 dislocated lenses, removed (not replaced) FAMILY HISTORY Problem Relation Age of Onset Hypertension Mother Genetic Mother Arthritis Mother other (marfans) Mother Cancer Maternal Grandmother colon Emphysema Brother Heart Maternal Uncle marfans- ruptured aorta Heart Maternal Uncle marfans - ruptured aorta Diabetes Maternal Aunt Social History Tobacco Use Smoking status: Never Smokeless tobacco: Never Substance Use Topics Alcohol use: No Drug use: No Past medical history, appointments, medications, allergies reviewed. Pertinent Lab/Diagnostic Studies are reviewed and discussed today Current Outpatient Medications: potassium chloride 20 mEq TbER levothyroxine (SYNTHROID) [address] (DEPAKOTE) 500 mg EC tablet clonazePAM (KLONOPIN) 0.5 mg tablet multivitamin tablet ergocalciferol 50,000 unit capsule (VITAMIN D2, DRISDOL) Comp Stocking,Knee,Long,Medium misc Review of Systems CONSTITUTIONAL: No fevers, chills night sweats, unintended weight loss CARDIOVASCULAR: No chest pain, dyspnea, palpitations, orthopnea, PND, ankle edema. PULM: No dyspnea, unexplained cough. GI: No dysphagia/odynophagia, problematic reflux, constipation, diarrhea, changes in stool habits, hematochezia, melena. : No new urinary complaints, including dysuria, gross hematuria or pyuria. NEURO: No new balance problems, peripheral weakness/paresthesias or numbness of concern. Physical Exam BP 110/64 Pulse 90 Resp 16 General appearance: a little disheveled, alert, in no acute distress, well nourished. Skin: Skin color, texture, turgor normal, no suspicious rashes or lesions Head: Normocephalic, no masses, lesions, tenderness or abnormalities Eyes: Anicteric sclera. Pupils are equally round and reactive to light. Extraocular movements are intact. Lungs: Lungs clear to auscultation. No wheezing, rhonchi, rales Heart: RRR without murmur, gallop, or rubs. Extremities: No deformities, edema, skin discoloration, clubbing or cyanosis. Good capillary refill. ASSESSMENT/PLAN: 1. 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 Marfan's syndrome - ICD9: 759.82, ICD10: Q87.40 3. Aortic Root Dilatation - ICD9: 447.71, ICD10: I77.810 Conservative management, family does not want to proceed with surgery 4. Essential hypertension - ICD9: 401.9, ICD10: I10 - Controlled - Recommend home blood pressure monitoring, to bring results to next visit - Encouraged sodium restriction, DASH or Mediterranean diet - Recommend regular aerobic exercise 5. Hypothyroidism, unspecified type - ICD9: 244.9, ICD10: E03.9 -I asked the mother to give him 40 additional pills of thyroid at 1-1/2 tablets a day to make up for the ones that he missed when they ran out of medications. - Instructed patient on importance of taking on an empty stomach either first thing in the morning or at bedtime. Saranya Casper MD documented in this encounter [facility] 03-30-2024 Telephone encounter Note Mother returns call and message below reviewed. Verbalizes understanding that patient still needs to have blood work completed and will bring him in to have it looked at. Zohra Roman RN [facility] 03-30-2024 Miscellaneous Notes Mother returns call and message below reviewed. Verbalizes understanding that patient still needs to have blood work completed and will bring him in to have it looked at. Zohra Roman RN Left a message for pt to call the office and ask to speak to a nurse. Elizabeth Godfrey LPN Left message for return call. Please call mother to remind her patient needs his blood work completed. Thank you Ashley Noyola APRN.ROMEO Next appt 05/30/24. Pt just saw Ashley on 03/01. Prescription Refill Information The patient has been identified by name and date of : Yes Caregiver verified no other encounters exist for this prescription request: Yes Caregiver confirmed with patient/requestor that no other refills are due, in the near future, with this provider at this time: Yes The last office visit in the department: 03-01-24 Does the patient have a future office visit with this provider/department: Yes Requested Prescriptions Pending Prescriptions Disp Refills potassium chloride 20 mEq TbER 30 tablet 5 Sig: Take 1 tablet by mouth once daily. Neema Pritchett March 24, 2024 2:27 PM documented in this encounter [facility] 03-30-2024 Telephone encounter Note Left a message for pt to call the office and ask to speak to a nurse. Elizabeth Godfrey LPN [facility] 03-27-2024 Telephone encounter Note Left message for return call. [facility] 03-27-2024 Telephone encounter Note Please call mother to remind her patient needs his blood work completed. Thank you Ashley Noyola APRN.DRY CLEANING ATTENDANT [facility] 03-24-2024 Telephone encounter Note Next appt 05/30/24. Pt just saw Ashley on 03/01. [facility] 03-24-2024 Telephone encounter Note Prescription Refill Information The patient has been identified by name and date of : Yes Caregiver verified no other encounters exist for this prescription request: Yes Caregiver confirmed with patient/requestor that no other refills are due, in the near future, with this provider at this time: Yes The last office visit in the department: 03-01-24 Does the patient have a future office visit with this provider/department: Yes Requested Prescriptions Pending Prescriptions Disp Refills potassium chloride 20 mEq TbER 30 tablet 5 Sig: Take 1 tablet by mouth once daily. Neema Pritchett March 24, 2024 2:27 PM [facility] 03-04-2024 Telephone encounter Note [facility] calling for refill of synthroid. In review this was sent to [facility] at 03/01/24 appt with TOLL BRIDGE ATTENDANT. [facility] pharmacy is asking for a rx to be sent to them. They have been instructed to call [facility] to get the rx from them. T [facility] 03-04-2024 Miscellaneous Notes [facility] pharmacy calling for refill of synthroid. In review this was sent to [facility] at 03/01/24 appt with TOLL BRIDGE ATTENDANT. [facility] pharmacy is asking for a rx to be sent to them. They have been instructed to call [facility] to get the rx from them. documented in this encounter [facility] 03-02-2024 Telephone encounter Note Addressed in OV. [facility] 03-02-2024 Miscellaneous Notes Addressed in OV. Pt's mother calls back and reports Dr. Carranza is pt's neurologist who takes care of his seizure medication. As far as pt is concerned he is still under Dr. Casper. Mother did not know what medications pt needed. Caron Martínez LPN LM for patient to contact office. Sue Bedoya MA Please call patient to see if he has switched PCPs. If not put him back under Dr. Casper and send needed refills. Thank you Ashley Noyola APRN.DRY CLEANING ATTENDANT [facility] calling for refills on medications that have not been filled there. I am not showing Dr. Casper as pcp. PCP listed is neurologist. Checking to see if Dr. Casper is still pcp and if so please change back. [facility] will have pt calling for refills. Elizabeth Godfrey LPN documented in this encounter [facility] 03-01-2024 History of Presen t illness Narrative CC: Patient presents with: Recheck: Follow up blood pressure HPI Georges Cotto is a 48 year old male who presents today for follow up on blood pressure. Has not been on medications since last year after a hospitalization showing hypotension. History of intellectual disability and lives with and is cared for by mother. Is unable to dress or shower himself and also requires help in the bathroom. Mother answers question for patient as he has decreased verbalization skills. HTN: Mr. Cotto indicates that he is feeling well and denies any symptoms referable to elevated blood pressure. Specifically denies headache, chest pain, palpitations, dyspnea, and peripheral edema. Patient denies any side effects of his medication(s) and is compliant with their regimen. He does not check BP's generally. Georges denies regular aerobic exercise but is able to get and walk around the house some. He watches his diet for sodium, low fat and low cholesterol some of the time. Last 3 Encounter BP Readings: Date: BP: 03/01/2024 118/74 04/28/2023 119/81[BP Brian[ 02/15/2023 112/68 Hypothyroidism: Takes medication as ordered. Denies any abnormal change in weight or energy. Seizures: No recent seizure activity. Follows with neurologist Dr. Carranza. REVIEW OF SYSTEMS See HPI 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 Marfan's syndrome PMH - PAST MEDICAL HISTORY OF dislocated lenses r/t marfans Urinary tract infection, site not specified PAST SURGICAL HISTORY Procedure Laterality Date PAST SURGICAL HISTORY OF 1993 hamstring lengthening bilateral PAST SURGICAL HISTORY OF age 7 dislocated lenses, removed (not replaced) ALLERGIES Patient has no known allergies. MEDICATIONS potassium chloride 20 mEq TbER Take 1 tablet by mouth once daily. levothyroxine (SYNTHROID) 75 mcg tablet Take 1 tablet by mouth once daily. On Wednesday take 2 tablets ergocalciferol 50,000 unit capsule (VITAMIN D2, DRISDOL) Take 1 capsule by mouth two times a week. TO BE TAKEN ORALLY DIRECTED. Take 1 tablet by mouth twice weekly divalproex DR (DEPAKOTE) 500 mg EC tablet Takes 3 pills in the AM and 3 pills at PM clonazePAM (KLONOPIN) 0.5 mg tablet Take 1 tablet by mouth twice daily for 90 days. Comp Stocking,Knee,Long,Medium misc 1 Each once daily. multivitamin tablet Take 1 tablet by mouth once daily. FAMILY HISTORY Problem Relation Age of Onset Hypertension Mother Genetic Mother Arthritis Mother other (marfans) Mother Cancer Maternal Grandmother colon Emphysema Brother Heart Maternal Uncle marfans- ruptured aorta Heart Maternal Uncle marfans - ruptured aorta Diabetes Maternal Aunt Social History Tobacco Use Smoking status: Never Smokeless tobacco: Never Substance Use Topics Alcohol use: No Drug use: No PHYSICAL EXAM BP 118/74 Pulse 63 Resp 16 Wt 72.6 kg (160 lb) SpO2 95% BMI 20.54 kg/m General Appearance: well appearing, in no acute distress, alert dressed appropriately, hair disheveled and appears dirty Eyes: conjunctiva pink and moist, no icterus, sclera white, non-injected Lungs: Lungs clear to auscultation. No wheezing, rhonchi, rales. Heart: RRR without murmur, gallop, or rubs. No ectopy Health maintenance reviewed with patient: BP Controlled (<130/80) due on 02/08/2020 Colorectal Cancer Screening Never done Behavioral Health Screening Never done Hepatitis B Vaccine(1 of 3 - 19+ 3-dose series) due on 04/28/2024 Hepatitis C Screening due on 03/01/2025 HIV Screening due on 03/01/2025 Covid-19 Vaccine( season) due on 03/01/2025 Annual PCP Team Chronic Disease Visit due on 04/28/2024 Influenza Vaccine(Season Ended) due on 05/14/2024 Diabetes Screening due on 10/09/2025 Lipid Screening due on 12/15/2026 DTaP,Tdap,Td Vaccine(2 - Td or Tdap) due on 08/04/2027 DATA REVIEWED: No new labs ASSESSMENT/PLAN: 1. Essential hypertension - ICD9: 401.9, ICD10: I10 (primary diagnosis) - Controlled - Recommend home blood pressure monitoring, to bring results to next visit - Encouraged sodium restriction, DASH or Mediterranean diet - Recommend regular aerobic exercise - COMPLETE BLOOD COUNT - COMPREHENSIVE METABOLIC PANEL 2. Hypothyroidism, unspecified type - ICD9: 244.9, ICD10: E03.9 - Instructed patient on importance of taking on an empty stomach either first thing in the morning or at bedtime. - LEVOTHYROXINE 75 MCG TABLET - THYROID STIMULATING HORMONE - T4 FREE/FREE THYROXINE 3. Seizure disorder (HCC) - ICD9: 345.90, ICD10: G40.909 Controlled with current treatment Continue with recommendations by neurology 4. Intellectual disability - ICD9: 319, ICD10: F79 Mother declining any home health assistance at this time. Discussed options of aides to come and help bathe him and even physical therapy to help with strengthening and increasing ambulation and self care. Will follow up if she changes her mind. Prescription instructions reviewed with patient as applicable. Potential red flag symptoms discussed with the patient. Reviewed appropriate action plan to take if red flag symptoms occur. Patient agreeable to treatment plan. Ashley Noyola APRN.ROMEO documented in this encounter [facility] 02-29-2024 Telephone encounter Note Pt's mother calls back and reports Dr. Carranza is pt's neurologist who takes care of his seizure medication. As far as pt is concerned he is still under Dr. Casper. Mother did not know what medications pt needed. Caron Martínez LPN [facility] 02-29-2024 Telephone encounter Note LM for patient to contact office. Sue Bedoya MA [facility] 02-28-2024 Telephone encounter Note Please call patient to see if he has switched PCPs. If not put him back under Dr. Casper and send needed refills. Thank you Ashley Noyola APRN.ROMEO [facility] 02-28-2024 Telephone encounter Note [facility] calling for refills on medications that have not been filled there. I am not showing Dr. Casper as pcp. PCP listed is neurologist. Checking to see if Dr. Casper is still pcp and if so please change back. [facility] will have pt calling for refills. Elizabeth Godfrey LPN [facility] 02-08-2024 Telephone encounter Note IN [facility] Work Phone: 02-08-2024 Miscellaneous Notes IN [facility] has reviewed the chart. To Dr. Blankenship for surgeon review. Lisa Horton RN 02/01/24 - recvd recs, images & ins 01/28/24 - pt referred by HARI Garcia from [facility] to Dr. Blankenship. documented in this encounter [facility] 02-08-2024 Telephone encounter Note NPM has reviewed the chart. To Dr. Blankenship for surgeon review. Lisa Horton RN [facility] Work Phone: 02-02-2024 Telephone encounter Note 02/01/24 - recvd recs, images & ins [facility] 02-02-2024 Telephone encounter Note 01/28/24 - pt referred by HARI Garcia from [facility] to Dr. Blankenship. [facility] 06-21-2023 Miscellaneous Notes Faxed as requested. OK, please include the information and re-fax. = [facility] called and they faxed a CMN form to the office on 05/24/23 and received it back on 06/09/23 for incontinence supplies. They need to have this form re-faxed and it needs to have the last OV date put on it 04/28/23. Fax back to [phone]. If any problems please call [phone]. Elizabeth Godfrey LPN documented in this encounter [facility] 06-04-2023 Miscellaneous Notes Patient has been identified by name and date of : No Patient phones for refill(s): Requested Prescriptions Pending Prescriptions Disp Refills potassium chloride 20 mEq TbER 30 tablet 5 Sig: Take 1 tablet by mouth once daily. Date of last office visit in primary care: 04/28/23 Last 2 Encounter Wt Readings: Date: Wt: 02/15/2023 0 kg () 10/09/2022 0 kg () Previous labs/tests for medication: Not applicable Please advise. Thank you. Heather Mendoza Patient has been identified by name and date of : Yes Last office visit in this department: 01/24/2018 RX INSTRUCTIONS: Patient aware RX will be sent to pharmacy. No need to notify patient. Patient phones requesting refills as follows: Requested Prescriptions No prescriptions requested or ordered in this encounter Please review and advise. Jenn Koch documented in this encounter [facility] 05-20-2023 Miscellaneous Notes Patient mother Jacki calling she had lost lab work orders asking to have copy faxed to [facility]. Printed orders and faxed to [phone] as requested, she may have them done tomorrow. documented in this encounter [facility] 04-28-2023 History of Presen t illness Narrative CC: Patient presents with: Recheck: 6 week follow up HPI Georges Cotto is a 47 year old male, very complex patient, who presents today for 6 week follow up. Is accompanied by his mother Jacki. Was seen by PCP 2 months ago post hospital stay for bacteremia. Has a history of seizure disorder, marfan syndrome, dilated aorta, htn, MRDD, hypothyroidism and other co-morbidites as well. Concern was the decline in his ability to walk, decreased appetite, and debility. Mother reports he is still very shaky with ambulation. Does not use anything to ambulate but she walks with him. Uses a wheelchair for long distances. Mother helps him get dressed and other ADLs. Feels his doing much better, is alert, great appetite, and reports no concerns. Has never had physical therapy started as he was unable to move and was laying on the floor. Needs home therapy as he is unable to make it to appointment often as getting a ride is difficult and he needs so much help to get into the car. HTN: Mr. Cotto indicates that he is feeling well and denies any symptoms referable to elevated blood pressure. Specifically denies headache, chest pain, palpitations, dyspnea, and peripheral edema. Atenolol has been on hold for low BP since hospitalization. He does not check BP's generally. Last 3 Encounter BP Readings: Date: BP: 04/28/2023 144/96 02/15/2023 112/68 10/09/2022 108/56 Seizures: Was late on his medications this morning and his mother said he shook a little bit and made a noise but did not last long so unsure. Sees in [facility] for neurology. Last with phone visit last week and has some lab work to be done next week at [facility]. Hypothyroidism: takes medication as ordered. Denies any abnormal changes in weight and energy level continues to improve. REVIEW OF SYSTEMS General: no fevers, no chills, no night sweats, no recurrent infections, Respiratory: no cough, no wheezing, no shortness of breath, no hemoptysis Cardiovascular: no chest pain, no chest pressure, no palpitations, and no swelling GI: No nausea, vomiting, or diarrhea Neurologic: No headache, weakness, numbness, tingling, neck stiffness, tremor, vertigo, dizziness, memory loss, syncope. 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 Marfan's syndrome PMH - PAST MEDICAL HISTORY OF dislocated lenses r/t marfans Urinary tract infection, site not specified PAST SURGICAL HISTORY Procedure Laterality Date PAST SURGICAL HISTORY OF 1993 hamstring lengthening bilateral PAST SURGICAL HISTORY OF age 7 dislocated lenses, removed (not replaced) ALLERGIES Patient has no known allergies. MEDICATIONS PHENobarbital 32.4 mg tablet phenobarbital 32.4 mg tablet TAKE 1 TABLET TWICE DAILY atenolol (TENORMIN) 50 mg tablet Take 1 tablet by mouth twice daily. levothyroxine (SYNTHROID) 75 mcg tablet Take 1 tablet by mouth once daily. On Wednesday take 2 tablets potassium chloride 20 mEq TbER Take 1 tablet by mouth once daily. ergocalciferol 50,000 unit capsule (VITAMIN D2, DRISDOL) Take 1 capsule by mouth two times a week. TO BE TAKEN ORALLY DIRECTED. Take 1 tablet by mouth twice weekly divalproex DR (DEPAKOTE) 500 mg EC tablet Takes 3 pills in the AM and 3 pills at PM clonazePAM (KLONOPIN) 0.5 mg tablet Take 1 tablet by mouth twice daily for 90 days. Comp Stocking,Knee,Long,Medium misc [address] Each [address] daily. divalproex DR (DEPAKOTE) 500 mg EC tablet 2 tablets in AM, 3 tablets in PM. multivitamin tablet Take 1 tablet by mouth once daily. FAMILY HISTORY Problem Relation Age of Onset Hypertension Mother Genetic Mother Arthritis Mother other (marfans) Mother Cancer Maternal Grandmother colon Emphysema Brother Heart Maternal Uncle marfans- ruptured aorta Heart Maternal Uncle marfans - ruptured aorta Diabetes Maternal Aunt Social History Tobacco Use Smoking status: Never Smokeless tobacco: Never Substance Use Topics Alcohol use: No Drug use: No PHYSICAL EXAM BP 144/96 Pulse 104 Resp 16 SpO2 99% General Appearance: in no acute distress, alert, appears disheveled and dirty. Skin: small non- swollen, non-tender bug bites to BUE and BLE. Without redness or drainage - no actual bugs noted on exam. Known issue for ongoing bed bug infestation Eyes: conjunctiva pink and moist, no icterus, sclera white, non-injected Lungs: Lungs clear to auscultation. No wheezing, rhonchi, rales. Heart: RRR without murmur, gallop, or rubs. No ectopy Health maintenance reviewed with patient: HEPATITIS B(1 of 3 - 3-dose series) Never done COVID-19 VACCINE(1) Never done HEPATITIS C SCREENING Never done HIV SCREENING Never done COLORECTAL CANCER SCREENING Never done INFLUENZA(1) due on 05/14/2023 ANNUAL PCP TEAM CHRONIC DISEASE VISIT due on 02/16/2024 BP CONTROLLED (<130/80) due on 02/16/2024 DIABETES SCREEN due on 10/09/2025 LIPID SCREEN due on 12/15/2026 DTAP,TDAP,TD(2 - Td or Tdap) due on 08/04/2027 DEPRESSION ASSESSMENT Completed HPV VACCINE Aged Out DATA REVIEWED: No new labs ASSESSMENT/PLAN: 1. Essential hypertension - ICD9: 401.9, ICD10: I10 (primary diagnosis) - Controlled - discontinuing atenolol at this time. Well controlled without this - Recommend home blood pressure monitoring, to bring results to next visit - Encouraged sodium restriction, DASH or Mediterranean diet - Recommend regular aerobic exercise - COMP METABOLIC PANEL - CBC + DIFF - follow up in 3 months 2. Intellectual disability - ICD9: 319, ICD10: F79 - cared for by mother. Patient's ability for any self care has improved but still not back to baseline. Still requiring a lot of ADL help and transfer assistance from mother. - has been recommended for inpatient rehab care by hospital, PCP, and at this visit but mother continuing to still decline this. 3. Debility - ICD9: 799.3, ICD10: R53.81 - see above - reordering home therapy. - [facility] 4. Decreased ambulation status - ICD9: 780.99, ICD10: Z74.09 See above - [facility] 5. Infestation by bed bug - ICD9: 134.8, ICD10: B88.8 - ongoing concern and has been discussed with mother previously by other providers. 6. Seizure Disorder - ICD9: 345.90, ICD10: G40.909 - continue with recommendations by neurology. 7. Hypothyroidism, unspecified type - ICD9: 244.9, ICD10: E03.9 - Instructed patient on importance of taking on an empty stomach either first thing in the morning or at bedtime. - TSH BLD 8. Hyperlipidemia, unspecified hyperlipidemia type - ICD9: 272.4, ICD10: E78.5 - Control undetermined, due for labs - Counseled on healthy diet and regular exercise - Discussed need for and benefit of weight loss. No weight on file for this encounter. - COMP METABOLIC PANEL - LIPID PANEL BASIC Prescription instructions reviewed with patient as applicable. Potential red flag symptoms discussed with the patient. Reviewed appropriate action plan to take if red flag symptoms occur. Patient agreeable to treatment plan. Ashley Noyola APRN.CNP documented in this encounter [facility] 04-26-2023 Miscellaneous Notes Noted. Ashley Noyola APRN.CNP Wheelchair [email or web address] Will re fax. Deysi[facility] Human Factors Engineer called Carlos Eduardo as patient has wheelchair ramp. Still waiting on wheelchair. Deysi asked if [employer] has wheelchairs that may be loaned out to patients to take home and bring back. Carlos Eduardo noted that [employer] wheelchairs are only for use in building. They are not allowed to leave facility. Deysi and this Sw discussed community agencies in regards to medical equipment loans. Carlos Eduardo noted that [facility] and [facility] in [place] have medical equipment loan programs. This Sw has not located any local medical equipment loan program. Deysi is going to call [employer] to see if they have any medical equipment loan options or know of any in this area. Deysi asks if ALLAN Ramirez office has faxed CMN to [facility]. Deysi notes that an order had been sent to her office.The CMN should be sent directly to [facility]. Carlos Eduardo notes that she will confirm with ALLAN Ramirez office that CMN has been faxed to [facility]. Beeana notes patient appt may need to be rescheduled if unable to locate wheelchair. documented in this encounter [facility] 04-23-2023 Miscellaneous Notes faxed back to [facility] at [phone]. Heather Redding LPN Please fax as requested., Thank you Ashley Noyola APRN.DRY CLEANING ATTENDANT Form received and placed on provider desk for review. CMN is being faxed again this afternoon to [phone] on my desk when received. Thank you Ashley Noyola APRN.ROMEO Jesi Human Factors Engineer with [employer] called in and reports provider should have had a Certificate of medical necessity that was faxed to them from [facility] around 04/01/23-04/02/23. I told her I didn't see any notes about it. She is going to have them fax it back Attn: Ashley Noyola at fax # [phone]. She said it should be coming in the next few days. She states Pt needs this faxed back to [facility] before he can get his wheelchair. documented in this encounter [facility] 04-21-2023 Miscellaneous Notes Faxed as requested. Order placed. Please fax as requested. Thank you Ashley Noyola APRN.DRY CLEANING ATTENDANT Deysi Sheehan from [facility] calling patient now has wheel chair ramp to get into the home. Patient not walking well, mother is renting a wheel chair and now asking for order for wheel chair with leg props. Patient height is 6' 2and weight is 180 pounds. Please fax order to attention of Deysi at [phone]. Pending order needs diagnosis. Please advise documented in this encounter [facility] 02-15-2023 History of Presen t illness Narrative Reason for Visit Patient presents with: Hospital F/U: [facility] d/c february 04 bladder infection Georges Cotto is a 47 year old male who presents here today for Above Complaints.. Health Maintenance HEPATITIS B(1 of 3 - 3-dose series) COVID-19 VACCINE(1) HEPATITIS C SCREENING HIV SCREENING COLORECTAL CANCER SCREENING HPI Georges is here with a couple family members. One of them was the mother. He was waiting for me and during that time he dozed off. we were able to arouse him to attend the visit but the visit was mostly with information from the mother and the family who was with him. This is a patient was admitted on December 2022 and was discharged on January 06, 2023. He was admitted with Aerococcus bacteremia and the consulting ID specialist was landing her droplet. As you may know Georges Jj is a 47-year-old patient with MRDD, seizure disorder, Marfan syndrome and dilated aortic root of 5 cm. The patient also has hypertension with decreased oral intake of foods and liquids with elevated temperature at home. He was not eating and drinking well in the hospital and that is why he was taken in. In the ED he was noted to have a temperature of 102.9, he was found to be obtunded and seem to be in an cephalopathy, his blood pressure was low at 94 x 51 urine was positive for 4+ bacteria and leuk esterases. He was ultimately found to have Aerococcus viridans bacteremia through the blood cultures and medications were started for him. He was also found to have a elevated ammonia which is actually evaluated because of his obtundation. He was started on lactulose and did have some improvement in his mental status. When they were planning for discharge there was concerned about his mobility and need for help based on physical therapy and nursing observation. The family however insisted on taking him home and did not consider placement. Infectious disease recommended oral doxycycline for discharge for 7 days. Atenolol was held but family was advised to restart it if his systolic was more than 120. Family seems to think that he is almost at baseline in terms of his ADL S. Activities of daily living- he can eat and toilet by himself. He needs assistance with wearing his clothes, showering and grooming. He is unable to do any of his instrumental activities of daily living and spends most of his time sitting in his home, watching TV, and sleeping. Currently they dont have a caregiver, her son and daughter live with her and they are helping her out. and helps his mother who needed to help because she had been struggling with taking care of him from the shortness of breath she has from her A. Fib. Encouraged him to walk and be more active Diet is not the best, a lot of processed foods, he does eat a lot of fruits No problem-specific Assessment & Plan notes found for this encounter. 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 Marfan's syndrome PMH - PAST MEDICAL HISTORY OF dislocated lenses r/t marfans Urinary tract infection, site not specified PAST SURGICAL HISTORY Procedure Laterality Date PAST SURGICAL HISTORY OF 1993 hamstring lengthening bilateral PAST SURGICAL HISTORY OF age 7 dislocated lenses, removed (not replaced) FAMILY HISTORY Problem Relation Age of Onset Hypertension Mother Genetic Mother Arthritis Mother other (marfans) Mother Cancer Maternal Grandmother colon Emphysema Brother Heart Maternal Uncle marfans- ruptured aorta Heart Maternal Uncle marfans - ruptured aorta Diabetes Maternal Aunt Social History Tobacco Use Smoking status: Never Smokeless tobacco: Never Substance Use Topics Alcohol use: No Drug use: No Past medical history, appointments, medications, allergies reviewed. Pertinent Lab/Diagnostic Studies are reviewed and discussed today Current Outpatient Medications: PHENobarbital 32.4 mg tablet potassium chloride 20 mEq TbER atenolol (TENORMIN) 50 mg tablet levothyroxine (SYNTHROID) 75 mcg tablet ergocalciferol 50,000 unit capsule (VITAMIN D2, DRISDOL) divalproex DR (DEPAKOTE) 500 mg EC tablet clonazePAM (KLONOPIN) 0.5 mg tablet Comp Stocking,Knee,Long,Medium misc divalproex DR (DEPAKOTE) 500 mg EC tablet multivitamin tablet Review of Systems CONSTITUTIONAL: No fevers, chills night sweats, unintended weight loss CARDIOVASCULAR: No chest pain, dyspnea, palpitations, orthopnea, PND, ankle edema. PULM: No dyspnea, unexplained cough. GI: No dysphagia/odynophagia, problematic reflux, constipation, diarrhea, changes in stool habits, hematochezia, melena. : No new urinary complaints, including dysuria, gross hematuria or pyuria. NEURO: No new balance problems, peripheral weakness/paresthesias or numbness of concern. Physical Exam BP 112/68 (BP Site: Right Arm, BP Position: Sitting, BP Cuff Size: Large Adult) Pulse 102 Temp 36.3 C (97.4 F) Resp 12 Ht 188 cm (6' 2) SpO2 96% BMI 23.11 kg/m General appearance: Well appearing, alert, in no acute distress, well nourished. Skin: Skin color, texture, turgor normal, no suspicious rashes or lesions Head: Normocephalic, no masses, lesions, tenderness or abnormalities Eyes: Anicteric sclera. Pupils are equally round and reactive to light. Extraocular movements are intact. Lungs: Lungs clear to auscultation. No wheezing, rhonchi, rales Heart: RRR without murmur, gallop, or rubs. Extremities: No deformities, edema, skin discoloration, clubbing or cyanosis. Good capillary refill. ASSESSMENT/PLAN: 1. Hospital discharge follow-up - ICD9: V67.59, ICD10: Z09 (primary diagnosis) The patient needs a refill of his phenobarbital 2. Essential hypertension - ICD9: 401.9, ICD10: I10 - Controlled - Recommend home blood pressure monitoring, to bring results to next visit - Encouraged sodium restriction, DASH or Mediterranean diet - Recommend regular aerobic exercise - ATENOLOL 50 MG TABLET 3. Hypothyroidism, unspecified type - ICD9: 244.9, ICD10: E03.9 - Instructed patient on importance of taking on an empty stomach either first thing in the morning or at bedtime. Stable Refill - LEVOTHYROXINE 75 MCG TABLET 4. Urinary tract infection without hematuria, site unspecified - ICD9: 599.0, ICD10: N39.0 acute - Patient education for prevention given - URINALYSIS, WITH MICROSCOPIC - URINE CULTURE 5. Seizure disorder (HCC) - ICD9: 345.90, ICD10: G40.909 - PHENOBARBITAL 32.4 MG TABLET Saranya Casper MD documented in this encounter [facility] 02-11-2023 Miscellaneous Notes Noted and glad he is doing better. The papers can be reviewed at upcoming appointment. Thank you Ashley Noyola APRN.DRY CLEANING ATTENDANT Spoke with pt's mother and got an update Pt is doing better. He is standing up by himself, more alert, eating and drinking good. hospital FU apt rescheduled. Mother asked if there was a form received from [facility] to be filled out that pt can not make his own decisions and mother is going to need this form to give to the courts. Nothing has been documented in [facility]. Mother will contact [facility] back and check with them to refax this. Elizabeth Godfrey LPN Recent labs printed and placed on provider desk for review. T/C mother, call did not go through. Will try again. Georgina - Please call and get a patient update on how he is doing especially as it seems he did not go to the ER. Thank you Ashley Noyola APRN.DRY CLEANING ATTENDANT Carlos Eduardo has not heard if patient has been to the ED. [facility] letting her know if she has questions or update to call Dr. Casper office. Sw will be out of office tomorrow 02/05-02/08. Carlos Eduardo spoke with [place] Human Factors Engineer and she [facility] to see ALLAN Ramirez. Carlos Eduardo noted that Dr. Peter NP advised mom to send patient to ED as would be more appropriate to patient to go to Detention/Rehab at this time. Carlos Eduardo notes that she will follow along and see what happens to patient at [facility]. Spoke with Dr. Casper, patients PCP, and she feels ER is more appropriate as he needs SNF. Thank you Ashley Noyola APRN.CNP Carlos Eduardo had message back from Deysi that patient transportation does have patient down as cot [facility] ph. [phone]. Deysi would like to know if she needs to cancel cot transportation for patient visit tomorrow due to ambulatory concerns. Carlos Eduardo received call back from [facility] Human Factors Engineer. Deysi notes that she had spoke with mom and that patient mom told her patient was ambulating some and walking some, just not stairs. Deysi notes that she called transport and set up ride for patient. Carlos Eduardo noted concern regarding being an ambulatory setting and concern with using cot. Deysi notes that she will look at how patient is scheduled for the transportation, is not sure that transport put patient down as cot, thinks maybe down as wheelchair. Deysi also notes that if she needs to cancel the transportation to let her know as soon as possible. Carlos Eduardo notes that Dr. London Romero nurse is reaching out to patient mom to discuss if going to ED would be more appropriate for patient due to lack of mobility. Deysi also notes the ride number if patient should come in and need ride back home would be ph.[phone] opt 0. Phoned patient mother Jacki. Mother stated she thought he will not be able to make it to appointment tomorrow with Ashley 02/03/23. Patient is eating and drinking well. Patient is unable to walk to bathroom. Patient wears Attends where he soils them in place of going to the bathroom per mother, Jacki. Patient is able to stand a little bit better today for a short period of time. Heather Redding LPN Carlos Eduardo spoke with JUNE Erickson and she is going to speak with ALLAN Ramirez about how to proceed with patient care needs below. Carlos Eduardo spoke with Deys[facility] Human Factors Engineer. Deysi notes that she will check with her rose grading supervisor and see if they could arrange cot transport. Deysi notes that patient mom had told her that he is eating well and she is changing his attends. Deysi notes that she was also told that patient was not able to walk. Deysi notes that this was new from time he went in to hospital. Deysi notes that she had been out to see patient right before he went to hospital last month. Deysi notes that from her understanding patient would either need to be under their waiver or under [employer] Waiver. Deysi notes that mom had told her that patient used to go to [employer] Workshop when he was younger. Not sure as to when patient last attended workshop. Deysi is also working on guardianship with mom. She will be faxing over guardianship forms to Dr. Casper/ALLAN Ramirez. Not sure if Ashley would be able to sign or if have to be done by . Deysi also notes that she will try to make home visit to see patient today. She is not sure if she will be able. Deysi notes that she is also a social work administrator so not a nurse doing a visit. Deysi states Patient's mother notified and verbalized understanding. Heather Redding LPN Carlos Eduardo did leave message for Kellie field investigator from [employer]. Would like to see what constitutes them investigating a concern and if they could investigate patient concern. Carlos Eduardo requested call back from Smita. Heather were you planning on talking with mom about Ashley,TOLL BRIDGE ATTENDANT message below.? Smita called SW back and noted that patient would need to be active with Board of DD for them to service patient needs. Smita ph#[phone]. Patient would need assessment to determine eligibility. Patient needs evaluated. Probably needs milk processing worker care facility. If patient unable to walk, low blood pressure, and concerns of excessive sleepiness, he needs evaluated in an ER if unable to get into office. Thank you Ashley Noyola APRN.ROMEO [facility] to report that Deysi Harris ph [phone] is patient technical healthcare consultant. Deysi is the [facility] Human Factors Engineer for patient. Debi notes that she did send this message over to Deysi tinajero. Carlos Eduardo left [facility] Agency on Aging,Human Factors Engineer a message requesting a call back to discuss patient care issues and see what if any services they are providing patient. Debi PH. [phone] Phoned mother Jacki regarding patient 's care. Patient has a briefcase sewer through [facility]: [employer] at [phone] or [phone]. Mother is working on paperwork for guardianship. Mother states patient has not walked since he got out of hospital. Mother states patient is weak. Patient is eating and drinking. Notes that he sleeps a lot. Patient is not able to get up to go to the bathroom. Patient voids or has BM in Attends per mother Jacki.Patient relatives are the ones that help with his care sister and a nephew. Patient's blood pressure has been lower lately per mother. In the past patient's mother had a friend help bring Georges to appointment. Asked mother if they are coming to his upcoming appointment next week. She stated that she is having issues finding someone to help bring him to the doctors. Please review and advise further. Heather Redding LPN Heather - Please call mother and ask who is guardian for patient and if they work with any agency for assistance like disability group. Please update us with information. Thank you Ashley Noyola APRN.ROMEO Patient is under 60, APS only works with people 60 and over. This Sw notes that patient has intellectual disabilities. Patient may have Service and Support [employer] through Board of DD that assists with providing patient with services. Patient family would have to call Board of DD to give permission for this Sw to speak to Board of DD to assess what services they assist patient with if any. Board of DD will not speak to this Sw without consent from patient or patient guardian. Do you know if patient is still his own guardian or is mom guardian? Would also be helpful to know if patient has technical healthcare consultant through his insurance. Patient insurance could help provide transportation to medical appts. Sw can see if family has anyone to help patient and mom to bring in to appt. How does patient typically make it in to office for appts? Do we know? This Sw notes below mentions a [employer] is also working with family. Sw can speak with patient mother to gather more information as well in regards to what agencies that is working with and see what services are able to help patient with care. Emmie Please see below messages. To my understanding this happens quite often. Patient is cared for by mother but she is unable to provide adequate care. With his inability to get care or care for himself I think he needs to go to a [place] [facility] facility. Per mother she won't be able to even get him to his hospital follow up appointment. What would you suggest, APS involvement? Thank you for looking into this difficult situation. Ashley Noyola APRN.CNP Spoke with Pam @ [facility], states when Therapist went to the patient's home to start services patient was in position, living conditions were deplorable with no home care manager rn or patient unable to take care of himself. Patient was sent back to the hospital and services were not started at that time. Case was closed. Physical therapy was ordered weeks ago for patient. Please look into this and find out why he is not getting therapy as ordered. Was supposed to get therapy from [facility]. Thank you Ashley Noyola APRN.CNP Sue Schultz DRY CLEANING ATTENDANT with [employer], a DATY that performs assessments for medicare/medicaid calling with update on patient. Sue states patient has not been able to walk or get around his home since he got home from the hospital later last month. Pt rests on an air mattress on floor. Pt was walking before hospitalization. Sue states pt has Hospital F/U appt with Ashley Noyola on 02/03 and pt's mother expressed to Sue that she's not sure she can get patient to appt. Sue would like to suggest Physical Therapy for patient or Home Health, or other. Sue states she will be contacting [facility] to assist patient and mother with additional resources as well. For any questions for Sue, she can be reached at [phone]. Marion Velez RN documented in this encounter [facility] 01-09-2023 Miscellaneous Notes Called pt mother and she reports he is doing real good now. She says after therapy left he got up and eat. She notes again he's going well. I agree with her recommendations but how do we order rehab, thought that should be done after hospital visit or stay. Regards, Saranya Casper MD Mariely PT from [place] calling, she had to call the squad once she got [place] patients state line for visit. Patients mother reported that he had not urinated in 24 hours, he is not weight bearing, he has been laying in the position, he is not speaking, and not drinking. There were possibly some urination issues at the hospital but they did not start a catheter. Mariely thinks that a rehab facility would be better so patient can get stronger. documented in this encounter [facility] 01-08-2023 Miscellaneous Notes Appointment scheduled. Aubrie HIGHTOWER Noted. Needs scheduled for hospital follow up. Ashley Noyola APRN.CNP Patient was discharged from [facility] yesterday and is now back home. documented in this encounter [facility] 01-07-2023 Progress note Note Date/Time January 07, 2023 11:45am [facility] Medical Records Department [address] [place] [address] Progress Note - Hospitalist 01/07/23 1144 MR#: [id number] Acct: [id number] Name: GEORGES COTTO Rep #:[id number] : 1975 47 From: Carri Mina MD PCP: Dr. Saranya Csaper MD Status:ADM I N Location: [place] 111182-1 Reason for Visit Reason for Visit: Diagnoses Hypokalemia (12/31/22) Metabolic encephalopathy (12/31/22) Unspecified disorder of lens (12/31/22) Urinary tract infection, site not specified (12/31/22) Bacteremia (12/31/22) Subjective Subjective Patient upset this morning that he did not go home yesterday and refused lactulose. Continues to be more awake. Did urinate overnight Objective Data Objective Data Vital Signs: Vital Signs Temp Pulse Resp BP Pulse Ox O2 Del Method 97.7 F L 85 16 102/68 93 Room Air 01/07/23 11:42 01/07/23 11:42 01/07/23 11:42 01/07/23 11:42 01/07/23 11:42 01/07/23 11:42 Oxygen Delivery Method Room Air Weight: 76.9 kg Body Mass Index (BMI) 21.7 Intake & Output: Intake and Output for Last 24 Hours 01/05/23 01/06/23 01/07/23 23:59 23:59 23:59 Intake Total 1530 / 1630 1500 / 1500 220 / 220 Output Total 1725 / 2150 1775 / 2425 1050 / 1050 Balance -195 / -520 -275 / -925 -830 / -830 Lab / Micro Data Result Diagrams: 01/07/23 05:36 01/07/23 05:36 Labs: Laboratory Results - last 24 hr 01/06/23 17:07: Random Vancomycin 9.6 01/07/23 05:36: WBC 6.7, RBC 3.21 L, Hgb 10.0 L, Hct 30.3 L, MCV 94.4 H, MCH 31.2, MCHC 33.0, RDW Std Deviation 42.5, RDW Coeff of Bel 12.3, Plt Count 316, MPV 8.8, Immature Gran % (Auto) 0.700, Neut % (Auto) 53.3, Lymph % (Auto) 29.8, [place] % (Auto) 14.2 H, Eos % (Auto) 1.6, Baso % (Auto) 0.4, Absolute Neuts (auto)3.6, Absolute Lymphs (auto) 2.01, Nucleated RBC % 0 01/07/23 05:36: Sodium 140, Potassium 3.4 L, Chloride 111 H, Carbon Dioxide 27.0, Anion Gap 2 L, BUN 6 L, Creatinine 0.80, Estim Creat Clear Calc 125.50, Est GFR (MDRD) Af Amer 134, Est GFR (MDRD) Non-Af 111, BUN/Creatinine Ratio 7.5 L, Glucose 93, Calcium 8.1 L 01/07/23 05:36: Ammonia 57.0 H Micro: Microbiology 01/01/23 13:50 Blood Culture (Wb) - Anticubital Right Blood Culture - Final No growth in 5 days. 01/01/23 13:55 Blood Culture (Wb) - Anticubital Left Blood Culture - Final No growth in 5 days. 12/31/22 16:50 Blood Culture (Wb) - Right Forearm Blood Culture - Final Alpha hemolytic organism 12/31/22 16:25 Blood Culture (Wb) - Left Forearm Bacteria Detection (PCR) - Final 12/31/22 16:25 Blood Culture (Wb) - Left Forearm Blood Culture - Final Aerococcus viridans. 12/31/22 17:00 Urine, Catheterized Urine Culture - Final Staphylococcus epidermidis Staphylococcus lentus 01/03/23 02:35 Stool Stool Occult Blood (TOMMY) - Final 12/31/22 17:00 Nasal Secretion SARS-CoV-2 & FLU Antigen (Rapid) - Final Physical Exam Narrative General: Resting comfortably, continues to improve and alertness HEENT: Normocephalic Eyes: Extraocular movements grossly intact Neck: Supple Respiratory: Clear to auscultation bilaterally, normal respiratory effort Cardiovascular: Regular rate and rhythm GI: Soft, nontender, nondistended Extremities: No edema Musculoskeletal: Moving all extremities Neuro: Patient did not participate in neuro exam Skin: No rashes appreciated Psych: More awake today Assessment & Plan Assessment/Plan (1) Bacteremia: PLAN: Plan #Aerococcus viridans bacteremia -Blood cultures on admission with Aerococcus viridans -Reportedly had elevated temperatures and was febrile prior to coming to the hospital -Is on vancomycin -Repeat cultures no growth to date but not finalized -Infectious disease consulted for assistance with antibiotic selection and duration -01/05: On vancomycin, doing well, upon DC will be switched to doxycycline -01/06: DC home on Doxy #Urinary retention -Had urinary retention when he presented and had Cleaning placed -Attempted to remove Cleaning prior to discharge but patient had 400 and did not void -We will straight cath x1 and attempt 1 more time overnight, if still retaining will replace Cleaning and close outpatient follow-up with urology but especially given his mobility difficulties and his baseline mental status do not want to send him out with Cleaning catheter if not necessary -We will be discharged in the a.m. with or without Cleaning catheter Home with family -01/06: Urinated overnight, DC home with family today #UTI -staph epi and staph lentus in urine -continue current management #MRDD/seizure disorder/Marfan syndrome with known dilated aortic root at 5 cm/hyperammonemia -Seems to be more interactive depending on the person he is interacting with -Did have an elevated ammonia however at 54, will start lactulose -Phenobarb level 10, within normal limits -Depakote level this p.m. prior to Depakote dose -01/05: Pneumonia slightly increased today, did start having bowel movements however, continue lactulose. Likely will need placement, mother considering this after her visit with him today -01/06: Patient is more alert today but still not particularly interactive, family initially agreeable for placement however today decided they wanted to take him home #Hypothyroidism -TSH and free T4 within normal limits -Continue home Synthroid #DVT ppx: Lovenox subcu Carri Mina MD Time spent in the patient's overall evaluation,decision-making process, review of diagnostic data, adjustment of management, discussion with other providers, nursing nursing and ancillary staff involved in patient's care documentation, 20minutes Charges/Coding Visit Charges Inpatient E&M: 95244 Subs Hosp L1 01/07/23 1145 <Electronically signed by Carri Mina MD> Cosigner Signature (if applicable): CC: ~ Signed [facility] Work Phone: 1(883) 542-885704-27-[address] Mina [facility] January 07, 2023 11:43am Note Date/Time January 06, 2023 2:2 5pm [facility] Medical Records Department [address] [place] [address] Discharge Summary 01/06/23 1425 MR#: [id number] Acct: [id number] Name: GEORGES COTTO Rep #:[id number] : 1975 47 From: Carri Mina MD PCP: Dr. Saranya Casper MD Status:ADM I N Location: [place] [address] Providers Date of Admission: 12/31/22 Date of Discharge: 01/06/23 Primary Care Physician: Dr. Saranya Casper MD Consultations 01/04/23 06:57 Consult: Infectious Disease Routine Consulting Provider: Albino Allen Reason for Consult: aeorococcus bacteremia EMERGENT Consult: No MD Notified: Yes Date Notified: 01/04/23 Time Notified: 08:26 Method of Notification: Text Reason For Visit: ENCEPHALOPATHY, UTI Diagnosis Discharge Diagnosis (1) Bacteremia: Status: Acute Code(s): R78.81 - Bacteremia Plan #Aerococcus viridans bacteremia #MRDD#seizure disorder #Marfan syndrome with known dilated aortic root at 5 cm #hyperammonemia #Hypothyroidism #Urinary tract infection Medications at Discharge Home Medications clonazepam 0.5 mg tablet 0.5 mg PO BID ANXIETY 03/22/19 levothyroxine 75 mcg tablet 75 mcg PO DAILY THYROID 03/22/19 Divalproex Sodium [Divalproex Sodium Er] 1,500 mg PO QHS SEIZURES 04/24/20 multivitamin with minerals 1 tab PO DAILY SUPPLEMENT 04/24/20 phenobarbital 64.8 mg tablet 64.8 mg PO DAILY SEIZURES 04/24/20 potassium chloride 20 mEq tablet,extended release(part/cryst) 20 meq PO DAILY Check with primary doctor 12/31/22 doxycycline hyclate 100 mg capsule 100 mg PO BID #14 caps 01/06/23 lactulose 20 gram/30 mL oral solution 20 g (30 mL) PO TID 30 days #2,700 mL 04/26/23 Hospital Course Summary of Care Provided Minutes Spent on Discharge: 34 Hospital Course: 47-year-old male with a history of MRDD, seizure disorder, Marfan syndrome with none dilated aortic root of 5 cm, hypertension presented to [facility] 12/31/2022 with decreased oral intake of foods and liquids with elevatedtemperatures at home. He was brought in because of the poor p.o. intake, encephalopathy, fatigue. In ED he had a temperature of 102.9 with a BP of 94/51. UA with 4+ urine bacteria, 25 leuk esterase, positive nitrite but no marked RBCs or WBCs. Blood and urine cultures ordered. He was given 3 L normalsaline in the ED and hospitalist called for admission. It was felt that he had encephalopathy secondary to complicated urinary tract infection and was started on Rocephin. Ultimately he was found to have Aerococcus viridans bacteremia with positive blood cultures and placed on vancomycin and ID consulted. He improved but did still remain somewhat tired and his ammonia was 54 but Depakotelevel was not supratherapeutic and liver panel not overtly abnormal. He was started on lactulose and did have improvement in mental status though still suspect that part of him being tired throughout the morning is due to his seizure medications however given these there from his neurologist for seizure disorder will not adjust these at this time. There is concern about his mobility and need for help based on physical therapy and nursing observation. Family initially insisted on taking him home however did briefly consider placement butultimately did decide to take him home with home health and multiple family members available for help. During admission atenolol was held due to blood pressures being on the lower end of normal but they were stable. Infectious disease recommended oral doxycycline for discharge for 7 days and this was prescribed which would covers Aerococcus bacteremia as well as his urine culturecontaining Staph epidermidis 80-100,000 colony count, Staphylococcus lentis 50-80,000 colony count. Patient in stable condition on day of discharge. Discharge instructions as followed: -Your blood pressure has been on the low end of normal so your atenolol was held. Would recommend checking your blood pressure daily and if you have blood pressures with the systolic (top number) greater than 120 you can restart this medication. If you begin taking it again would still recommend checking your blood pressure daily and if the systolic (top number) is <100 or your heart rateis <60 would recommend holding that medication dose. -You were started on a medication, lactulose, due to an elevated ammonia which can cause increased tiredness.? You will take 20 g 3 times daily initially but this dose can be adjusted at home to achieve goal of 3 bowel movements a day -For your infection you will need to take doxycycline 100 mg twice daily, a prescription for this and lactulose will be sent to preferred pharmacy on file -Given your blood pressure, ammonia, and tiredness would discuss your Klonopin, phenobarbital, and Depakote seizure regimen with your neurologist -Please call your primary care provider's office upon discharge to schedule a hospital follow up within 1 week. -For any concerning signs or symptoms please call 911 or proceed to the nearest emergency department Physical Exam Narrative General: Resting comfortably, wakes up without significant difficulty, more awake today HEENT: Normocephalic Eyes: Extraocular movements grossly intact Neck: Supple Respiratory: Clear to auscultation bilaterally, normal respiratory effort Cardiovascular: Regular rate and rhythm GI: Soft, nontender, nondistended Extremities: No edema Musculoskeletal: Moving all extremities Neuro: Patient did not participate in neuro exam Skin: No rashes appreciated Psych: More awake today Weight / BMI Weight Weight: 77.5 kg Body Mass Index (BMI) 21.9 ABG / Lab / Microbiology Data Result Diagrams: 01/06/23 05:48 01/06/23 05:48 Laboratory: Laboratory Results - last 24 hr 01/05/23 14:30: Vancomycin Trough 33.4 H 01/05/23 22:05: Vancomycin Trough 24.8 H 01/06/23 05:48: WBC 7.8, RBC 3.23 L, Hgb 10.4 L, Hct 30.4 L, MCV 94.1 H, MCH 32.2 H, MCHC 34.2, RDW Std Deviation 42.7, RDW Coeff of Bel 12.4, Plt Count 303,MPV 8.9, Immature Gran % (Auto) 0.800, Neut % (Auto) 53.7, Lymph % (Auto) 29.1, [place] % (Auto) 14.5 H, Eos % (Auto) 1.5, Baso % (Auto) 0.4, Absolute Neuts (auto)4.2, Absolute Lymphs (auto) 2.27, Nucleated RBC % 0 01/06/23 05:48: Sodium 139, Potassium 3.3 L, Chloride 111 H, Carbon Dioxide 26.0, Anion Gap 2 L, BUN 6 L, Creatinine 0.77, Estim Creat Clear Calc 130.05, Est GFR (MDRD) Af Amer 139, Est GFR (MDRD) Non-Af 115, BUN/Creatinine Ratio 7.8 L, Glucose 93, Calcium 8.3 L 01/06/23 05:48: Ammonia 60.0 H Microbiology: Microbiology 01/01/23 13:50 Blood Culture (Wb) - Anticubital Right Blood Culture - Final No growth in 5 days. 01/01/23 13:55 Blood Culture (Wb) - Anticubital Left Blood Culture - Final No growth in 5 days. 12/31/22 16:50 Blood Culture (Wb) - Right Forearm Blood Culture - Final Alpha hemolytic organism 12/31/22 16:25 Blood Culture (Wb) - Left Forearm Bacteria Detection (PCR) - Final 12/31/22 16:25 Blood Culture (Wb) - Left Forearm Blood Culture - Final Aerococcus viridans. 12/31/22 17:00 Urine, Catheterized Urine Culture - Final Staphylococcus epidermidis Staphylococcus lentus 01/03/23 02:35 Stool Stool Occult Blood (TOMMY) - Final 12/31/22 17:00 Nasal Secretion SARS-CoV-2 & FLU Antigen (Rapid) - Final D/C Instructions Discharge Diet: No restrictions Meaningful Use Info Meaningful Use Diagnoses (Choose all that apply): None applicable Discharge Plan Admission Admit Date/Time: 12/31/22 19:02 Primary Reason for Your Visit: Confusion and poor oral intake Attending Provider: Carri Mina Primary Care Provider: Saranya Casper Consulting Providers: Ivonne Tavares ; Mario Chaidez ; Albino Allen Instructions Patient Instructions: Lactulose Oral solution [Encephalopathy], ED Fall Prevention Additional Instructions / Restrictions: DISCHARGE INSTRUCTIONS PLEASE READ *Please take this with you to your next doctors appointment* -Your blood pressure has been on the low end of normal so your atenolol was held. Would recommend checking your blood pressure daily and if you have blood pressures with the systolic (top number) greater than 120 you can restart this medication. If you begin taking it again would still recommend checking your blood pressure daily and if the systolic (top number) is <100 or your heart rate is <60 would recommend holding that medication dose. -You were started on a medication, lactulose, due to an elevated ammonia which can cause increased tiredness. You will take 20 g 3 times daily initially but this dose can be adjusted at home to achieve goal of 3 bowel movements a day -For your infection you will need to take doxycycline 100 mg twice daily, a prescription for this and lactulose will be sent to preferred pharmacy on file -Given your blood pressure, ammonia, and tiredness would discuss your Klonopin, phenobarbital, and Depakote seizure regimen with your neurologist -Please call your primary care provider's office upon discharge to schedule a hospital follow up within 1 week. -For any concerning signs or symptoms please call 911 or proceed to the nearest emergency department Discharge Orders/Prescriptions Prescriptions: New lactulose 20 gram/30 mL Solution 20 g PO TID 30 Days Qty: 2700 0RF doxycycline hyclate 100 mg capsule 100 mg PO BID Qty: 14 0RF Continued levothyroxine 75 mcg tablet 75 mcg PO DAILY clonazepam 0.5 mg tablet 0.5 mg PO BID phenobarbital 64.8 mg tablet 64.8 mg PO DAILY Label Comments: TAKE 1 TABLET BY MOUTH EVERY DAY multivitamin with minerals 1 EACH tablet 1 tab PO DAILY Divalproex Sodium [Divalproex Sodium Er] 500 MG Tab.Er.24h 1,500 mg PO QHS potassium chloride 20 MEQ tablet,ER particles/crystals 20 meq PO DAILY Discontinued atenolol 50 MG tablet 50 mg PO BID Referrals / Follow Up: Saranya Casper MD [Primary Care Provider] - Within 1 Week Disposition Disposition (needs filled in before D/C Order can be placed): Home Health Service Charges/Coding Visit Charges Inpatient E&M: 79303 Disch Hosp >30min 01/06/23 4338 <Electronically signed by Carri Mina MD> Cosigner Signature (if applicable): CC: Dr. Saranya Casper MD; Dr. Carri Mina MD~ Signed ADDENDUM by Dr. Carri Mina MD on 01/07/23 at 1143 Addendum Addendum 01/07/2023: Patient anxious to go home so refused lactulose this morning, was able to urinate overnight and continues to improve and his alertness. Refusing lactulose due to wanting to go home and feel it is reasonable to discharge him home with family 01/07/23 1143<Electronically signed by Carri Mina MD> Cosigner Signature (if applicable): cc: Dr. Saranya Casper MD; Dr. Carri Mina MD ~* Signed [facility] Work Phone: 1(690) 506-856704-27-2023 Miscellaneous Notes* Telephone Encounter - Freida Winters RN - 01/07/2023 10:04 AM EDT Pam from [facility] called and is notified of providers message and instructions. She voices understanding. Freida Winters RN * Telephone Encounter - Ashley Noyola APRN.CNP - 01/07/2023 8:40 AM EDT PCP ok with order and agrees to follow. Thank you Ashley Noyola APRN.CNP * Telephone Encounter - Elizabeth Godfrey LPN - 01/06/2023 2:37 PM EDT Monse called back and they will see pt for strengthening due to weakness. They would like to start care tomorrow 01-07-23. Please advise Monse or Pam. Elizabeth Godfrey LPN * Telephone Encounter - Georgina Ram Ma - 01/06/2023 9:24 AM EDT Left message for return call. * Telephone Encounter - Ashley Noyola APRN.CNP - 01/04/2023 5:07 PM EDT What is therapy for? We have not seen patient since September. Thank you Ashley Noyola APRN.CNP * Telephone Encounter - Juanita Arreguin LPN - 01/04/2023 9:32 AM EDT Pam calling from [facility] asking if doctor will follow and sign orders for pts physical therapy? Please advise. [facility] Mina [facility] January 06, 2023 6:11pm Note Date/Time January 04, 2023 7:2 2am [facility] Medical Records Department [address] [place] [address] Pharmacokinetic/Renal -Consult 01/04/23720 MR#: [id number] Acct: [id number] Name: GEORGES COTTO Rep #:[id number] : 1975 47 From: Roger Lebron [facility] PCP: Dr. Saranya Casper MD Status:ADM I N Y Location: [place] [address] Consult Pharmacy has been consulted to manage selected antiobiotic: Vancomycin Type of Consult: Follow-up Suspected Infection: Bacteremia Labs: Sodium 142 mmol/L (136-145) 01/04/23 06:36 Potassium 3.3 mmol/L (3.5-5.1) L 01/04/23 06:36 Chloride 113 mmol/L (98-107) H 01/04/23 06:36 Carbon Dioxide 25.0 mmol/L (21.0-32.0) 01/04/23 06:36 Anion Gap 4 (5-15) L 01/04/23 06:36 BUN 2 mg/dL (7-18) L 01/04/23 06:36 Creatinine 0.49 mg/dL (0.70-1.30) L 01/04/23 06:36 Est GFR (MDRD) Af Amer 238 mL/min (>60) 01/04/23 06:36 Est GFR (MDRD) Non-Af 196 mL/min (>60) 01/04/23 06:36 BUN/Creatinine Ratio 4.1 RATIO (10-20) L 01/04/23 06:36 Glucose 98 mg/dL (74-106) 01/04/23 06:36 Vancomycin Trough 17.5 ug/mL (5.0-15.0) H 01/04/23 06:36 Microbiology: Microbiology 01/01/23 13:55 Blood Culture (Wb) - Anticubital Left Blood Culture - Preliminary No growth in 48 hours. 01/01/23 13:50 Blood Culture (Wb) - Anticubital Right Blood Culture - Preliminary No growth in 48 hours. 12/31/22 16:50 Blood Culture (Wb) - Right Forearm Blood Culture - Preliminary Alpha hemolytic organism 12/31/22 16:25 Blood Culture (Wb) - Left Forearm Bacteria Detection (PCR) - Final 12/31/22 16:25 Blood Culture (Wb) - Left Forearm Blood Culture - Final Aerococcus viridans. 12/31/22 17:00 Urine, Catheterized Urine Culture - Final Staphylococcus epidermidis Staphylococcus lentus 01/03/23 02:35 Stool Stool Occult Blood (TMOMY) - Final 12/31/22 17:00 Nasal Secretion SARS-CoV-2 & FLU Antigen (Rapid) - Final Goal Trough: 15-20 mcg/mL Pharmacy Plan for Drug Dosing: VANCOMYCIN LEVEL RECEIVED Current Vancomycin Dose: 1000mg q8h (,,) Number of Doses Received: x7 of current dose Vancomycin Level: 17.5 Hours Since Last Dose: 8 Renal Function: SrCr 0.49 Renal Function Trend: SrCr stable Lab/Micro: Vancomycin Plan/Comments: resulted trough of 17.5 is within the ordered goal trough range of 15-20. recommend continuing current dose of 1000mg q8h and checking a trough prior to the 4th dose Pending Level: 01/05/23 at 1430 Pharmacy Service will continue to monitor and adjust dosing as required. Follow-Up Labs: Trough Vancomycin - 01/05/23 at 1430 01/04/23 0722 <Electronically signed by Roger Dobbins [facility]> Date _ Roger Londono [facility] 01/06/23 1811 <Electronically signed by Carri Mina MD> Cosigner Signature (if applicable): Date Carri Mina MD CC: ~ Signed [facility] Work Phone: 1(800) 998-396404-26-[address] Mina [facility] January 06, 2023 6:10pm Note Date/Time January 06, 2023 6:1 0pm [facility] Medical Records Department [address] [facility] [place] [address] Progress Note - Hospitalist 01/06/23 180 MR#: [id number] Acct: [id number] Name: GEORGES COTTO Rep #:[id number] : 1975 47 From: Carri Mina MD PCP: Dr. Saranya Casper MD Status:ADM I N Location: [place] [address] Reason for Visit Reason for Visit: Diagnoses Hypokalemia (12/31/22) Metabolic encephalopathy (12/31/22) Unspecified disorder of lens (12/31/22) Urinary tract infection, site not specified (12/31/22) Bacteremia (12/31/22) Subjective Subjective Was improving today, more awake but still not particularly interactive Objective Data Objective Data Vital Signs: Vital Signs Temp Pulse Resp BP Pulse Ox O2 Del Method 99.1 F 75 18 108/73 97 Room Air 01/06/23 17:30 01/06/23 17:30 01/06/23 17:30 01/06/23 17:30 01/06/23 17:30 01/06/23 17:30 Oxygen Delivery Method Room Air Weight: 77.5 kg Body Mass Index (BMI) 21.9 Intake & Output: Intake and Output for Last 24 Hours 01/04/23 01/05/23 01/06/23 23:59 23:59 23:59 Intake Total 3250.0 / 3250.0 1530 / 1630 1300 / 1300 Output Total 3800 / 3800 1725 / 2150 1575 / 1575 Balance -550.0 / -550.0 -195 / -520 -275 / -275 Lab / Micro Data Result Diagrams: 01/06/23 05:48 01/06/23 05:48 Labs: Laboratory Results - last 24 hr 01/05/23 22:05: Vancomycin Trough 24.8 H 01/06/23 05:48: WBC 7.8, RBC 3.23 L, Hgb 10.4 L, Hct 30.4 L, MCV 94.1 H, MCH 32.2 H, MCHC 34.2, RDW Std Deviation 42.7, RDW Coeff of Bel 12.4, Plt Count 303,MPV 8.9, Immature Gran % (Auto) 0.800, Neut % (Auto) 53.7, Lymph % (Auto) 29.1, [place] % (Auto) 14.5 H, Eos % (Auto) 1.5, Baso % (Auto) 0.4, Absolute Neuts (auto)4.2, Absolute Lymphs (auto) 2.27, Nucleated RBC % 0 01/06/23 05:48: Sodium 139, Potassium 3.3 L, Chloride 111 H, Carbon Dioxide 26.0, Anion Gap 2 L, BUN 6 L, Creatinine 0.77, Estim Creat Clear Calc 130.05, Est GFR (MDRD) Af Amer 139, Est GFR (MDRD) Non-Af 115, BUN/Creatinine Ratio 7.8 L, Glucose 93, Calcium 8.3 L 01/06/23 05:48: Ammonia 60.0 H Micro: Microbiology 01/01/23 13:50 Blood Culture (Wb) - Anticubital Right Blood Culture - Final No growth in 5 days. 01/01/23 13:55 Blood Culture (Wb) - Anticubital Left Blood Culture - Final No growth in 5 days. 12/31/22 16:50 Blood Culture (Wb) - Right Forearm Blood Culture - Final Alpha hemolytic organism 12/31/22 16:25 Blood Culture (Wb) - Left Forearm Bacteria Detection (PCR) - Final 12/31/22 16:25 Blood Culture (Wb) - Left Forearm Blood Culture - Final Aerococcus viridans. 12/31/22 17:00 Urine, Catheterized Urine Culture - Final Staphylococcus epidermidis Staphylococcus lentus 01/03/23 02:35 Stool Stool Occult Blood (TOMMY) - Final 12/31/22 17:00 Nasal Secretion SARS-CoV-2 & FLU Antigen (Rapid) - Final Physical Exam Narrative General: Resting comfortably, wakes up without significant difficulty, more awake today HEENT: Normocephalic Eyes: Extraocular movements grossly intact Neck: Supple Respiratory: Clear to auscultation bilaterally, normal respiratory effort Cardiovascular: Regular rate and rhythm GI: Soft, nontender, nondistended Extremities: No edema Musculoskeletal: Moving all extremities Neuro: Patient did not participate in neuro exam Skin: No rashes appreciated Psych: More awake today Assessment & Plan Assessment/Plan (1) Bacteremia: PLAN: Plan #Aerococcus viridans bacteremia -Blood cultures on admission with Aerococcus viridans -Reportedly had elevated temperatures and was febrile prior to coming to the hospital -Is on vancomycin -Repeat cultures no growth to date but not finalized -Infectious disease consulted for assistance with antibiotic selection and duration -01/05: On vancomycin, doing well, upon DC will be switched to doxycycline #Urinary retention -Had urinary retention when he presented and had Cleaning placed -Attempted to remove Cleaning prior to discharge but patient had 400 and did not void -We will straight cath x1 and attempt 1 more time overnight, if still retaining will replace Cleaning and close outpatient follow-up with urology but especially given his mobility difficulties and his baseline mental status do not want to send him out with Cleaning catheter if not necessary -We will be discharged in the a.m. with or without Cleaning catheter Home with family #UTI -staph epi and staph lentus in urine -continue current management #MRDD/seizure disorder/Marfan syndrome with known dilated aortic root at 5 cm/hyperammonemia -Seems to be more interactive depending on the person he is interacting with -Did have an elevated ammonia however at 54, will start lactulose -Phenobarb level 10, within normal limits -Depakote level this p.m. prior to Depakote dose -01/05: Pneumonia slightly increased today, did start having bowel movements however, continue lactulose. Likely will need placement, mother considering this after her visit with him today -01/06: Patient is more alert today but still not particularly interactive, family initially agreeable for placement however today decided they wanted to take him home #Hypothyroidism -TSH and free T4 within normal limits -Continue home Synthroid #DVT ppx: Lovenox subcu Carri Mina MD Time spent in the patient's overall evaluation,decision-making process, review of diagnostic data, adjustment of management, discussion with other providers, nursing nursing and ancillary staff involved in patient's care documentation, 30minutes Charges/Coding Visit Charges Inpatient E&M: 01278 Subs Hosp L2 01/06/231809 <Electronically signed by Carri Mina MD> Cosigner Signature (if applicable): CC: ~ Signed [facility] Work Phone: 1(353) 342-604504-26-[address] Mina [facility] January 06, 2023 2:25pm Note Date/Time January 06, 2023 2:0 2pm [facility] Medical Records Department [address] [place] [address] Instructions for Home/Discharge Instructions 01/06/23 1402 MR#: [id number] Acct: [id number] Name: GEORGES COTTO Rep #:[id number] : 1975 47 From: Carri Mina MD PCP: Dr. Saranya Capser MD Status:ADM I N Discharge Instructions Diet Discharge Diet: No restrictions Activity Discharge Activity: Return to Normal Activity Follow Up Care Test Results: Test results from this visit will be discussed in further detail at your follow- up appointment, if applicable. Discharge Plan Admission Admit Date/Time: 12/31/22 19:02 Primary Reason for Your Visit: Confusion and poor oral intake Attending Provider: Carri Mina Primary Care Provider: Saranya Casper Consulting Providers: Ivonne Tavaers ; Mario Chaidez ; Albino Allen Instructions Patient Instructions: Lactulose Oral solution [Encephalopathy], ED Fall Prevention Additional Instructions / Restrictions: DISCHARGE INSTRUCTIONS PLEASE READ *Please take this with you to your next doctors appointment* -Your blood pressure has been on the low end of normal so your atenolol was held. Would recommend checking your blood pressure daily and if you have blood pressures with the systolic (top number) greater than 120 you can restart this medication. If you begin taking it again would still recommend checking your blood pressure daily and if the systolic (top number) is <100 or your heart rate is <60 would recommend holding that medication dose. -You were started on a medication, lactulose, due to an elevated ammonia which can cause increased tiredness. You will take 20 g 3 times daily initially but this dose can be adjusted at home to achieve goal of 3 bowel movements a day -For your infection you will need to take doxycycline 100 mg twice daily, a prescription for this and lactulose will be sent to preferred pharmacy on file -Given your blood pressure, ammonia, and tiredness would discuss your Klonopin, phenobarbital, and Depakote seizure regimen with your neurologist -Please call your primary care provider's office upon discharge to schedule a hospital follow up within 1 week. -For any concerning signs or symptoms please call 911 or proceed to the nearest emergency department Discharge Orders/Prescriptions Prescriptions: New lactulose 20 gram/30 mL Solution 20 g PO TID 30 Days Qty: 2700 0RF doxycycline hyclate 100 mg capsule 100 mg PO BID Qty: 14 0RF Continued levothyroxine 75 mcg tablet 75 mcg PO DAILY clonazepam 0.5 mg tablet 0.5 mg PO BID phenobarbital 64.8 mg tablet 64.8 mg PO DAILY Label Comments: TAKE 1 TABLET BY MOUTH EVERY DAY multivitamin with minerals 1 EACH tablet 1 tab PO DAILY Divalproex Sodium [Divalproex Sodium Er] 500 MG Tab.Er.24h 1,500 mg PO QHS potassium chloride 20 MEQ tablet,ER particles/crystals 20 meq PO DAILY Discontinued atenolol 50 MG tablet 50 mg PO BID Referrals / Follow Up: Saranya Casper MD [Primary Care Provider] - Within 1 Week Disposition Disposition (needs filled in before D/C Order can be placed): Home Health Service 01/06/23 1425<Electronically signed by Carri Mina MD>Carri Mina MD CC: Dr. Ivonne Tavares MD; Dr. Saranya Casper MD; Dr. Mario Chaidez DO; Dr. Albino Allen MD ~ Signed [facility] Work Phone: 1(904) 639-555304-26-2023 Consult note Author Mk Cedeno [facility] January 06, 2023 12:37am Note Date/Time January 06, 2023 12: 37am [facility] Medical Records Department [address] [place] [address] Pharmacokinetic/Renal -Consult 01/06/237 MR#: [id number] Acct: [id number] Name: GEORGES COTTO Rep #:[id number] : 1975 47 From: Mk Cotton od PCP: Dr. Saranya Casper MD Status:ADM I N Y Location: [id number] Consult Pharmacy has been consulted to manage selected antiobiotic: Vancomycin Type of Consult: Follow-up Labs: Sodium 139 mmol/L (136-145) 01/05/23 06:34 Potassium 3.5 mmol/L (3.5-5.1) 01/05/23 06:34 Chloride 111 mmol/L (98-107) H 01/05/23 06:34 Carbon Dioxide 25.0 mmol/L (21.0-32.0) 01/05/23 06:34 Anion Gap 3 (5-15) L 01/05/23 06:34 BUN 7 mg/dL (7-18) 01/05/23 06:34 Creatinine 0.88 mg/dL (0.70-1.30) 01/05/23 06:34 Est GFR (MDRD) Af Amer 120 mL/min (>60) 01/05/23 06:34 Est GFR (MDRD) Non-Af 99 mL/min (>60) 01/05/23 06:34 BUN/Creatinine Ratio 8.0 RATIO (10-20) L 01/05/23 06:34 Glucose 106 mg/dL (74-106) 01/05/23 06:34 Vancomycin Trough 24.8 ug/mL (5.0-15.0) H 01/05/23 22:05 Microbiology: Microbiology 12/31/22 16:50 Blood Culture (Wb) - Right Forearm Blood Culture - Final Alpha hemolytic organism 01/01/23 13:55 Blood Culture (Wb) - Anticubital Left Blood Culture - Preliminary No growth in 48 hours. 01/01/23 13:50 Blood Culture (Wb) - Anticubital Right Blood Culture - Preliminary No growth in 48 hours. 12/31/22 16:25 Blood Culture (Wb) - Left Forearm Bacteria Detection (PCR) - Final 12/31/22 16:25 Blood Culture (Wb) - Left Forearm Blood Culture - Final Aerococcus viridans. 12/31/22 17:00 Urine, Catheterized Urine Culture - Final Staphylococcus epidermidis Staphylococcus lentus 01/03/23 02:35 Stool Stool Occult Blood (TOMMY) - Final 12/31/22 17:00 Nasal Secretion SARS-CoV-2 & FLU Antigen (Rapid) - Final Goal Trough: 15-20 mcg/mL Pharmacy Plan for Drug Dosing: Pharmacy Service will continue to monitor and adjust dosing as required. Follow-Up Labs: Trough Vancomycin Labs to be done on [date and time ordered]: TROUGH 24.8 @ [address]PEFD [address] HOLD NEXT DOSE AND DRAW RANDOM LEVEL IN 18 HRS. 01/06/23 0037 <Electronically signed by Mk padilla > Date _ Mk Cedeno Cosigner Signature (if applicable): Date CC: ~ Signed [facility] Work Phone: [phone]) [phone] Mina [facility] January 05, 2023 7:26pm Note Date/Time January 05, 2023 9:5 5am [facility] Medical Records Department [address] [place] [address] Progress Note - Hospitalist 01/05/23 0955 MR#: [id number] Acct: [id number] Name: GEORGES COTTO Rep #:[id number] : 1975 47 From: Carri Mina MD PCP: Dr. Saranya Casper MD Status:ADM I N Location: [address] Reason for Visit Reason for Visit: Diagnoses Hypokalemia (12/31/22) Metabolic encephalopathy (12/31/22) Unspecified disorder of lens (12/31/22) Urinary tract infection, site not specified (12/31/22) Bacteremia (12/31/22) Subjective Subjective Tired again today without improvement in pneumonia but did have BM this morning. Spoke with mother regarding dispo and his current functional status. He will be ready for DC tomorrow if remains clinically stable, will verify ammonia has not continued to increase in creatinine improving and whether he will go home rosa isela placed and mother will think about that today Objective Data Objective Data Vital Signs: Vital Signs Temp Pulse Resp BP Pulse Ox O2 Del Method 97.8 F 76 18 100/58 L 96 Room Air 01/05/23 08:56 01/05/23 08:56 01/05/23 08:56 01/05/23 08:56 01/05/23 08:56 01/05/23 08:56 Oxygen Delivery Method Room Air Weight: 76.7 kg Body Mass Index (BMI) 21.7 Intake & Output: Intake and Output for Last 24 Hours 01/03/23 01/04/23 01/05/23 23:59 23:59 23:59 Intake Total 3932.5 / 3932.5 3250.0 / 3250.0 200 / 200 Output Total 4075 / 4075 3800 / 3800 1375 / 1375 Balance -142.5 / -142.5 -550.0 / -550.0 -1175 / -1175 Lab / Micro Data Result Diagrams: 01/05/23 06:34 01/05/23 06:34 Labs: Laboratory Results - last 24 hr 01/04/23 21:00: Valproic Acid 75 01/05/23 06:34: WBC 7.3, RBC 3.34 L, Hgb 10.6 L, Hct 31.6 L, MCV 94.6 H, MCH 31.7, MCHC 33.5, RDW Std Deviation 42.5, RDW Coeff of Bel 12.3, Plt Count 324, MPV 8.9, Immature Gran % (Auto) 0.700, Neut % (Auto) 55.5, Lymph % (Auto) 26.8, [place] % (Auto) 14.6 H, Eos % (Auto) 2.1, Baso % (Auto) 0.3, Absolute Neuts (auto)4.1, Absolute Lymphs (auto) 1.95, Nucleated RBC % 0 01/05/23 06:34: Sodium 139, Potassium 3.5, Chloride 111 H, Carbon Dioxide 25.0, Anion Gap 3 L, BUN 7, Creatinine 0.88, Estim Creat Clear Calc 113.79, Est GFR (MDRD) Af Amer 120, Est GFR (MDRD) Non-Af 99, BUN/Creatinine Ratio 8.0 L, Glucose 106, Calcium 7.9 L 01/05/23 06:34: Ammonia 60.0 H Micro: Microbiology 04/20/23 16:50 Blood Culture (Wb) - Right Forearm Blood Culture - Final Alpha hemolytic organism 01/01/23 13:55 Blood Culture (Wb) - Anticubital Left Blood Culture - Preliminary No growth in 48 hours. 01/01/23 13:50 Blood Culture (Wb) - Anticubital Right Blood Culture - Preliminary No growth in 48 hours. 12/31/22 16:25 Blood Culture (Wb) - Left Forearm Bacteria Detection (PCR) - Final 12/31/22 16:25 Blood Culture (Wb) - Left Forearm Blood Culture - Final Aerococcus viridans. 12/31/22 17:00 Urine, Catheterized Urine Culture - Final Staphylococcus epidermidis Staphylococcus lentus 01/03/23 02:35 Stool Stool Occult Blood (TOMMY) - Final 12/31/22 17:00 Nasal Secretion SARS-CoV-2 & FLU Antigen (Rapid) - Final Physical Exam Narrative General: Resting comfortably, wakes up without significant difficulty HEENT: Normocephalic Eyes: Extraocular movements grossly intact Neck: Supple Respiratory: Clear to auscultation bilaterally, normal respiratory effort Cardiovascular: Regular rate and rhythm GI: Soft, nontender, nondistended Extremities: No edema Musculoskeletal: Moving all extremities Neuro: Patient did not participate in neuro exam Skin: No rashes appreciated Psych: Woke up with prompting, nonverbal Assessment & Plan Assessment/Plan (1) Bacteremia: PLAN: Plan #Aerococcus viridans bacteremia -Blood cultures on admission with Aerococcus viridans -Reportedly had elevated temperatures and was febrile prior to coming to the hospital -Is on vancomycin -Repeat cultures no growth to date but not finalized -Infectious disease consulted for assistance with antibiotic selection and duration -01/05: On vancomycin, doing well, upon DC will be switched to doxycycline #MRDD/seizure disorder/Marfan syndrome with known dilated aortic root at 5 cm/hyperammonemia -Seems to be more interactive depending on the person he is interacting with -Did have an elevated ammonia however at 54, will start lactulose -Phenobarb level 10, within normal limits -Depakote level this p.m. prior to Depakote dose -01/05: Pneumonia slightly increased today, did start having bowel movements however, continue lactulose. Likely will need placement, mother considering this after her visit with him today #Hypothyroidism -TSH and free T4 within normal limits -Continue home Synthroid #DVT ppx: Lovenox subcu Carri Mina MD Time spent in the patient's overall evaluation,decision-making process, review of diagnostic data, adjustment of management, discussion with other providers, nursing nursing and ancillary staff involved in patient's care documentation, 30minutes Charges/Coding Visit Charges Inpatient E&M: 92890 Subs Hosp L2 01/05/231925 <Electronically signed by Carri Mina MD> Cosigner Signature (if applicable): CC: ~ Signed [facility] Work Phone: 1(734) 319-893004-25-[address] Allen [facility] January 05, 2023 9:58am Note Date/Time January 05, 2023 9:5 8am [facility] Medical Records Department [address] [place] [address] Progress Note - Infect Disease 01/05/23956 MR#: [id number] Acct: [id number] Name: GEORGES COTTO Rep #:[id number] : 1975 47 From: Albino sheehan MD PCP: Dr. Saranya Casper MD Status:ADM I N Location: [place] [address] Physical Exam Narrative No fever, no events overnight Const alert and no apparent distress Resp normal air movement and clear to auscultation bilaterally Cardio regular rate and regular rhythm GI soft to palpation, non-tender and non-distended Skin no rashes or lesions noted ID ID: Route of nutrition/ use of supplements: [] Nutritional Intake: [] IV Site: [] Cleaning Catheter: [] Assessment & Plan Assessment/Plan (1) Bacteremia: PLAN: Aerococcus viridans bacteremia and CoNS uti. On vanc, much improved, fever resolved, wbc back to normal. Cont vanc, ok for discharge with one week po doxy 100mg bid. Will follow (2) Complicated UTI (urinary tract infection): 01/05/23 0958 <Electronically signed by Albino Allen MD> Cosigner Signature (if applicable): CC: ~ Signed [facility] Work Phone: [phone]) 910-735904-24-[address] Allen [facility] January 04, 2023 2:05pm Note Date/Time January 04, 2023 2:0 5pm [facility] Medical Records Department [address] [place] [address] Consultation - Infectious Dx 01/04/23 1402 MR#: [id number] Acct: [id number] Name: GEORGES COTTO Rep #:[id number] : 1975 47 From: Albino sheehan MD PCP: Dr. Saranya Casper MD Status:ADM I N Location: [place] [id number] Assessment & Plan Assessment/Plan (1) Bacteremia: PLAN: Aerococcus viridans bacteremia and CoNS uti. On vanc, much improved, fever resolved, wbc back to normal. Cont vanc, plan for discharge will be one week po doxy 100mg bid. Will follow, thank you (2) Complicated UTI (urinary tract infection): HPI Consult Data Date of Consult: 01/04/23 HPI Narrative Reason for Consultation: bacteremia HPI Narrative: GEORGES COTTO, is a 47 M with MRDD, Marfan syndrom, presented 12/31 with several days fever, chills, foul urine, not feeling well. No cough or SOB. No cleaning athome. Came to ED, admitted with ceftriaxone. Abx changed to vanc now, overall much improved per his mother at bedside. Full ROS unobtainable due to mental status PFSH Medical History Anxiety Dilatation of aortic root due to Marfan syndrome Essential hypertension Hypothyroidism Lens disorder Marfan syndrome Seizure disorder Home Medications atenolol 50 mg tablet 50 mg PO BID BP 01/15/18 [History Last Taken Unknown] clonazepam 0.5 mg tablet 0.5 mg PO BID ANXIETY 03/22/19 [History Last Taken Unknown] levothyroxine 75 mcg tablet 75 mcg PO DAILY THYROID 03/22/19 [History Last Taken Unknown] Divalproex Sodium [Divalproex Sodium Er] 1,500 mg PO QHS SEIZURES 04/24/20 [History Last Taken Unknown] multivitamin with minerals 1 tab PO DAILY SUPPLEMENT 04/24/20 [History Last Taken Unknown] phenobarbital 64.8 mg tablet 64.8 mg PO DAILY SEIZURES 04/24/20 [History Last Taken Unknown] potassium chloride 20 mEq tablet,extended release(part/cryst) 20 meq PO DAILY Check with primary doctor 12/31/22 [History Last Taken Unknown] Allergy/AdvReac Type Severity Reaction Status Date / Time No Known Allergies Allergy Verified 12/31/22 16:13 Family History (Updated 12/31/22 @ 19:[address] Ivonne Tavares MD) Mother Hypertension Marfans syndrome Uncle Marfans syndrome Ruptured, aorta Uncle Marfans syndrome Ruptured, aorta Father CAD (coronary artery disease) Heart disease Hypertension Surgical History dislocated lenses, removed hamstring lengthening bilateral Social History (Updated 12/31/22 @ 19:[address] Ivonne Tavares MD) household members: family Smoking Status: Never smoker alcohol intake: never substance use type: does not use caffeine: Yes Type: carbonated beverages Number of servings: 1 and coffee Number of servings: 2 Physical Exam Const no apparent distress General Appearance: cooperative HEENT head/scalp atraumatic Eyes PERRL and EOMs intact bilaterally Neck supple and No nodes Resp normal air movement and clear to auscultation bilaterally Cardio regular rate and regular rhythm GI soft to palpation, non-tender and non-distended Extremity General Extremity: Negative for edema Skin no rashes or lesions noted Neuro CN's II-XII intact bilaterally Lab / Micro Data Attestation: I reviewed the patient's lab results. Result Diagrams: 01/04/23 06:36 01/04/23 06:36 Labs: Laboratory Results - last 24 hr 01/04/23 06:36: Vancomycin Trough 17.5 H 01/04/23 06:36: WBC 5.8, RBC 3.40 L, Hgb 10.6 L, Hct 32.3 L, MCV 95.0 H, MCH 31.2, MCHC 32.8, RDW Std Deviation 42.5, RDW Coeff of Bel 12.1, Plt Count 317, MPV 9.1, Immature Gran % (Auto) 0.500, Neut % (Auto) 55.8, Lymph % (Auto) 28.2, [place] % (Auto) 11.9 H, Eos % (Auto) 2.9, Baso % (Auto) 0.7, Absolute Neuts (auto)3.2, Absolute Lymphs (auto) 1.63, Nucleated RBC % 0 01/04/23 06:36: Sodium 142, Potassium 3.3 L, Chloride 113 H, Carbon Dioxide 25.0, Anion Gap 4 L, BUN 2 L, Creatinine 0.49 L, Estim Creat Clear Calc 204.09, Est GFR (MDRD) Af Amer 238, Est GFR (MDRD) Non-Af 196, BUN/Creatinine Ratio 4.1 L, Glucose 98, Calcium 8.1 L 01/04/23 06:36: Total Bilirubin 0.10 L, Direct Bilirubin 0.06, AST 19, ALT 19, Alkaline Phosphatase 45, Total Protein 5.9 L, Albumin 1.8 L, Globulin 4.1, TSH 2.38, Free T4 1.16 01/04/23 06:36: Phenobarbital 10.7 01/04/23 07:00: Ammonia 54.0 H Micro: Microbiology 12/31/22 16:50 Blood Culture (Wb) - Right Forearm Blood Culture - Final Alpha hemolytic organism 01/04/23 1405 <Electronically signed by Albino Allen MD> Cosigner Signature (if applicable): CC: Dr. Ivonne Tavares MD; Dr. Saranya Casper MD; Dr. Jorge L Ahmadi DO; Dr. Mario Chaidez DO; Dr. Albino Allen MD~ Signed [facility] Work Phone: 1(173) 822-213704-24-[address] Mina [facility] January 04, 2023 12:23pm Note Date/Time January 04, 2023 6:4 4am [facility] Medical Records Department [address] [place] [address] Progress Note - Hospitalist 01/04/23 0644 MR#: [id number] Acct: [id number] Name: GEORGES COTTO Rep #:[id number] : 1975 47 From: Carri Mina MD PCP: Dr. Saranya Casper MD Status:ADM I N Location: [address] Reason for Visit Reason for Visit: Diagnoses Hypokalemia (12/31/22) Metabolic encephalopathy (12/31/22) Unspecified disorder of lens (12/31/22) Urinary tract infection, site not specified (12/31/22) Bacteremia (12/31/22) Subjective Subjective Resting comfortably in bed, did not answer questions verbally but did wake up when prompted Objective Data Objective Data Vital Signs: Vital Signs Temp Pulse Resp BP Pulse Ox O2 Del Method 97.8 F 64 18 138/82 H 95 Room Air 01/04/23 04:03 01/04/23 04:03 01/04/23 04:03 01/04/23 04:03 01/04/23 04:03 01/04/23 04:03 Oxygen Delivery Method Room Air Weight: 76.6 kg Body Mass Index (BMI) 21.7 Intake & Output: Intake and Output for Last 24 Hours 01/02/23 01/03/23 01/04/23 23:59 23:59 23:59 Intake Total 5027.5 / 5027.5 3932.5 / 3932.5 1447.5 / 1447.5 Output Total 7200 / 7200 4075 / 4075 2500 / 2500 Balance -2172.5 / -2172.5 -142.5 / -142.5 -1052.5 / -1052.5 Lab / Micro Data Result Diagrams: 01/04/23 06:36 01/04/23 06:36 Micro: Microbiology 01/01/23 13:55 Blood Culture (Wb) - Anticubital Left Blood Culture - Preliminary No growth in 48 hours. 01/01/23 13:50 Blood Culture (Wb) - Anticubital Right Blood Culture - Preliminary No growth in 48 hours. 12/31/22 16:50 Blood Culture (Wb) - Right Forearm Blood Culture - Preliminary Alpha hemolytic organism 12/31/22 16:25 Blood Culture (Wb) - Left Forearm Bacteria Detection (PCR) - Final 12/31/22 16:25 Blood Culture (Wb) - Left Forearm Blood Culture - Final Aerococcus viridans. 12/31/22 17:00 Urine, Catheterized Urine Culture - Final Staphylococcus epidermidis Staphylococcus lentus 01/03/23 02:35 Stool Stool Occult Blood (TOMMY) - Final 12/31/22 17:00 Nasal Secretion SARS-CoV-2 & FLU Antigen (Rapid) - Final Physical Exam Narrative General: Resting comfortably, wakes up without significant difficulty HEENT: Normocephalic, slightly dry mucous membranes Eyes: Extraocular movements grossly intact Neck: Supple Respiratory: Clear to auscultation bilaterally, normal respiratory effort Cardiovascular: Regular rate and rhythm GI: Soft, nontender, nondistended Extremities: No edema Musculoskeletal: Moving all extremities Neuro: Patient did not participate in neuro exam Skin: No rashes appreciated Psych: Woke up with prompting, nonverbal Assessment & Plan Assessment/Plan (1) Bacteremia: PLAN: Plan #Aerococcus viridans bacteremia -Blood cultures on admission with Aerococcus viridans -Reportedly had elevated temperatures and was febrile prior to coming to the hospital -Is on vancomycin -Repeat cultures no growth to date but not finalized -Infectious disease consulted for assistance with antibiotic selection and duration #MRDD/seizure disorder/Marfan syndrome with known dilated aortic root at 5 cm -Seems to be more interactive depending on the person he is interacting with -Did have an elevated ammonia however at 54, will start lactulose -Phenobarb level 10, within normal limits -Depakote level this p.m. prior to Depakote dose #Hypothyroidism -TSH and free T4 within normal limits -Continue home Synthroid #DVT ppx: Lovenox subcu Carri Mina MD Time spent in the patient's overall evaluation,decision-making process, review of diagnostic data, adjustment of management, discussion with other providers, nursing nursing and ancillary staff involved in patient's care documentation, 30minutes Charges/Coding Visit Charges Inpatient E&M: 75201 Subs Hosp L2 01/04/23 1223 <Electronically signed by Carri Mina MD> Cosigner Signature (if applicable): CC: ~ Signed [facility] Work Phone: 1(651) 470-321904-23-[address] Chaidez [facility] January 03, 2023 1:04pm Note Date/Time January 03, 2023 7:3 5am [facility] Medical Records Department [address] [place] [address] Progress Note - Hospitalist 01/03/23 0731 MR#: [id number] Acct: [id number] Name: GEORGES COTTO Rep #:[id number] : 1975 47 From: Mario Chaidez DO PCP: Dr. Saranya Casper MD Status:ADM I N Location: [place] [address] Reason for Visit Reason for Visit: Diagnoses Metabolic encephalopathy (12/31/22) Urinary tract infection, site not specified (12/31/22) Bacteremia (12/31/22) Subjective Subjective Remains non-verbal. Objective Data Objective Data Vital Signs: Vital Signs Temp Pulse Resp BP Pulse Ox O2 Del Method 37.5 C H 85 18 117/64 94 Room Air 01/03/23 02:23 01/03/23 02:23 01/03/23 02:23 01/03/23 02:23 01/03/23 02:23 01/03/23 02:56 Oxygen Delivery Method Room Air Weight: 76.6 kg Body Mass Index (BMI) 21.7 Intake & Output: Intake and Output for Last 24 Hours 01/01/23 01/02/23 01/03/23 23:59 23:59 23:59 Intake Total 3290.83 / 3290.83 5027.5 / 5027.5 1332.5 / 1332.5 Output Total 1600 / 2500 7200 / 7200 2550 / 2550 Balance 1690.83 / 790.83 -2172.5 / -2172.5 -1217.5 / -1217.5 Lab / Micro Data Result Diagrams: 01/03/23 05:42 01/03/23 05:42 Labs: Laboratory Results - last 24 hr 01/02/23 14:03: Vancomycin Trough 16.0 H 01/03/23 05:42: WBC 7.0, RBC 3.16 L, Hgb 9.8 L, Hct 29.7 L, MCV 94.0, MCH 31.0, MCHC 33.0, RDW Std Deviation 41.7, RDW Coeff of Bel 12.0, Plt Count 313, MPV 9.6, Immature Gran % (Auto) 0.600, Neut % (Auto) 54.0, Lymph % (Auto) 28.4, [place]% (Auto) 14.5 H, Eos % (Auto) 1.9, Baso % (Auto) 0.6, Absolute Neuts (auto) 3.8,Absolute Lymphs (auto) 1.98, Nucleated RBC % 0 01/03/23 05:42: Sodium 140, Potassium 3.2 L, Chloride 113 H, Carbon Dioxide 23.0, Anion Gap 4 L, BUN 3 L, Creatinine 0.53 L, Estim Creat Clear Calc 192.63, Est GFR (MDRD) Af Amer 216, Est GFR (MDRD) Non-Af 179, BUN/Creatinine Ratio 5.7 L, Glucose 94, Calcium 7.7 L Micro: Microbiology 12/31/22 17:00 Urine, Catheterized Urine Culture - Final Staphylococcus epidermidis Staphylococcus lentus 12/31/22 16:25 Blood Culture (Wb) - Left Forearm Bacteria Detection (PCR) - Final 12/31/22 16:25 Blood Culture (Wb) - Left Forearm Blood Culture - Preliminary Aerococcus viridans. 12/31/22 16:50 Blood Culture (Wb) - Right Forearm Blood Culture - Preliminary Alpha hemolytic organism 01/03/23 02:35 Stool Stool Occult Blood (TOMMY) - Final 12/31/22 17:00 Nasal Secretion SARS-CoV-2 & FLU Antigen (Rapid) - Final Physical Exam Const Constitutional Narrative: non-verbal. establishes eye-contact. Watching cartoons and laughs at them while I'm in the room. Resp normal respiratory effort, no retractions, no use of accessory muscles and clearto auscultation bilaterally Cardio regular rate, regular rhythm, S1 normal heart sound and S2 normal heart sound GI normal to inspection, nondistended, normoactive bowel sounds, soft to palpation,non-tender and non-distended Extremity General Extremity: edema Assessment & Plan Assessment/Plan (1) Metabolic encephalopathy: PLAN: Unknown baseline. Pt non-verbal for me and nurse. It appears to be selective as he was speaking some yesterday. Prior hospitalization, pt was also non-verbal Acute Metabolic Encephalopathy secondary dehydration. Avoid potentiating medications (2) Complicated UTI (urinary tract infection): PLAN: Ruled out. Only 0-5 WBCs on UA. DC abx and observe. UCx positive for Staph epidermidis and lentus. Doubt true infection. (3) Bacteremia: PLAN: 2 of 2 for aerococcus viridans, sensitivities pending Start vancomycin Follow up cultures Repeat BCx pending. (4) Hypokalemia: PLAN: Replace Monitor (5) Lens disorder: PLAN: I cannot tell if he has bilateral lens dislocation. Follow up with ophthalmology as outpt. PLAN: Plan The patient is a 47 y/o M w/ PMHx: HTN, MRDD component with associated Seizure disorder, Marfan syndrome w/ known dilated aortic root 5.0 cm, Anxiety who presents to the [facility] ED on 12/31/22 with history of notable decreased oral intake including both food and liquids with elevated temperatures at home reported as febrile per family although unable to give exact temperature with no emesis but potentially nausea and no significant pain however patient's urine has smelled significantly foul prompting family to bring him in for evaluation. Chronic conditoins: * Normocytic anemia, acute on previously chronically noted 2019: Admission hemoglobin 12.5, prior to this 04/21/2020 214.3 however in 2019 patient did have a baseline 10-12 however this is suspected to be likely more acute phase, guaiac requested, iron panel, ferritin. * Known dilated aortic root: Most recent CT chest with contrast noted 06/03/2020 with aneurysmal dilatation aortic root measuring 5 cm in transverse dimension with normal caliber of the descending aorta and aortic arch, encourage continued outpatient follow-up and evaluation. * Underlying MRDD with limited interactive ability baseline, Seizure disorder: We will continue patient home phenobarbital as well as Depakote level. Level requested given encephalopathy on chronic decreased cognitive ability. If level is low given decreased intake ability or unable to take his oral AEDs will transition to IV with load if level notably decreased. * Anxiety: We will continue twice daily clonazepam regimen. * Hypothyroidism: We will continue patient levothyroxine regimen. * Hypertension: We will continue patient home atenolol regimen with hold parameters although patient runs routinely systolic in the 90s from review of records. * Seizure disorder: continue phenobarbital DVT prophylaxis: Lovenox. CODE status: DNR-CCA, no intubation status. Disposition: plan for Home with [facility] when medically stable. Charges/Coding Visit Charges Inpatient E&M: 95889 Subs Hosp L2 01/03/23 1303 <Electronically signed by Mario Chaidez DO> Cosigner Signature (if applicable): CC: ~ Signed [facility] Work Phone: 1(443) 645-444104-23-[address] Chaidez [facility] January 03, 2023 7:31am Note Date/Time January 02, 2023 3:2 4pm [facility] Medical Records Department [address] [place] [address] Pharmacokinetic/Renal -Consult 01/02/23 1520 MR#: [id number] Acct: [id number] Name: GEORGES COTTO Rep #:[id number] : 1975 47 From: Yovanny hassan PCP: Dr. Saranya Casper MD Status:ADM I N Y Location: [place] [address] Consult Pharmacy has been consulted to manage selected antiobiotic: Vancomycin Type of Consult: Follow-up Suspected Infection: Bacteremia Prior Doses of Antibiotics Received/Current Regimen: current dose is vanc 1000mg IV q8h Labs: Sodium 140 mmol/L (136-145) 01/02/23 04:59 Potassium 3.3 mmol/L (3.5-5.1) L 01/02/23 04:59 Chloride 114 mmol/L (98-107) H 01/02/23 04:59 Carbon Dioxide 23.0 mmol/L (21.0-32.0) 01/02/23 04:59 Anion Gap 3 (5-15) L 01/02/23 04:59 BUN 6 mg/dL (7-18) L 01/02/23 04:59 Creatinine 0.53 mg/dL (0.70-1.30) L 01/02/23 04:59 Est GFR (MDRD) Af Amer 216 mL/min (>60) 01/02/23 04:59 Est GFR (MDRD) Non-Af 178 mL/min (>60) 01/02/23 04:59 BUN/Creatinine Ratio 11.3 RATIO (10-20) 01/02/23 04:59 Glucose 97 mg/dL (74-106) 01/02/23 04:59 Vancomycin Trough 16.0 ug/mL (5.0-15.0) H 01/02/23 14:03 Microbiology: Microbiology 12/31/22 16:50 Blood Culture (Wb) - Right Forearm Blood Culture - Preliminary GPC Poss Enterococcus sp 12/31/22 16:25 Blood Culture (Wb) - Left Forearm Blood Culture - Preliminary GPC Poss Enterococcus sp 12/31/22 17:00 Urine, Catheterized Urine Culture - Preliminary Mixed Gram Positive Organisms 12/31/22 17:00 Nasal Secretion SARS-CoV-2 & FLU Antigen (Rapid) - Final Weight used for dosin.2 kg Estimated Creatinine Clearance: >100ml/min Goal Trough: 15-20 mcg/mL Pharmacy Plan for Drug Dosing: The vanc trough drawn at 14:03 today (approx 7.5 hours after the previous dose) was 16.0. This is within goal range so will keep same dose. Repeat another trough in 2 days per protocol except that will move up the trough to the investor relations coordinator dose instead that day. Pharmacy Service will continue to monitor and adjust dosing as required. Follow-Up Labs: Trough Vancomycin Labs to be done on [date and time ordered]: 01/04/23 06:30 01/02/23 1526 <Electronically signed by Yovanny Alcantar erg > Date _ Yovanny Duval 01/03/23 0731 <Electronically signed by Mario Chaidez DO> Cosigner Signature (if applicable): Date Mario Chaidez DO CC: ~ Signed [facility] Work Phone: 1(323) 486-118904-22-[address] Chaidez [facility] January 02, 2023 10:27am Note Date/Time January 02, 2023 7:2 2am [facility] Medical Records Department [address] [place] [address] Progress Note - Hospitalist 01/02/23717 MR#: [id number] Acct: [id number] Name: GEORGES COTTO Rep #:[id number] : 1975 47 From: Mario Chaidez DO PCP: Dr. Saranya Casper MD Status:ADM I N Location: [place] [address] Reason for Visit Reason for Visit: Diagnoses Metabolic encephalopathy (12/31/22) Urinary tract infection, site not specified (12/31/22) Bacteremia (12/31/22) Subjective Subjective Non-verbal. Objective Data Objective Data Vital Signs: Vital Signs Temp Pulse Resp BP Pulse Ox O2 Del Method 36.4 C L 76 18 96/57 L 93 Room Air 01/02/23 02:06 01/02/23 02:06 01/02/23 02:06 01/02/23 02:06 01/02/23 02:06 01/02/23 02:06 Oxygen Delivery Method Room Air Weight: 78.2 kg Body Mass Index (BMI) 22.1 Intake & Output: Intake and Output for Last 24 Hours 12/31/22 01/01/23 01/02/23 23:59 23:59 23:59 Intake Total 2550 / 2650 3290.83 / 3290.83 1200 / 1200 Output Total 1600 / 2500 2350 / 2350 Balance 2550 / 2650 1690.83 / 790.83 -1150 / -1150 Lab / Micro Data Result Diagrams: 01/02/23 04:59 01/02/23 04:59 Labs: Laboratory Results - last 24 hr 12/31/22 16:25: Diff Path Review Reviewed 12/31/22 17:00: Urine Color Betzaida, Urine Clarity Cloudy, Urine pH 6.0, Ur Specific [place] 1.020, Urine Protein 15 H, Urine Glucose (UA) Normal, Urine Ketones 15 H, Urine Occult Blood 250 H, Urine Nitrite Positive H, Urine Bilirubin 1 H, Urine Urobilinogen 4 H, Ur Leukocyte Esterase 25 H, Urine RBC 0-5SEEN, Urine WBC 0-5 SEEN, Ur Squamous Epith Cells 0 SEEN, Urine Bacteria 4+, Urine Mucus 0 SEEN 01/02/23 04:59: WBC 7.7, RBC 3.09 L, Hgb 9.7 L, Hct 29.3 L, MCV 94.8 H, MCH 31.4, MCHC 33.1, RDW Std Deviation 41.9, RDW Coeff of Bel 12.1, Plt Count 273, MPV 9.6, Immature Gran % (Auto) 0.500, Neut % (Auto) 52.8, Lymph % (Auto) 31.9, [place] % (Auto) 13.5 H, Eos % (Auto) 1.0, Baso % (Auto) 0.3, Absolute Neuts (auto)4.1, Absolute Lymphs (auto) 2.46, Nucleated RBC % 0 01/02/23 04:59: Sodium 140, Potassium 3.3 L, Chloride 114 H, Carbon Dioxide 23.0, Anion Gap 3 L, BUN 6 L, Creatinine 0.53 L, Estim Creat Clear Calc 184.75, Est GFR (MDRD) Af Amer 216, Est GFR (MDRD) Non-Af 178, BUN/Creatinine Ratio 11.3, Glucose 97, Calcium 7.8 L Micro: Microbiology 12/31/22 16:50 Blood Culture (Wb) - Right Forearm Blood Culture - Preliminary 12/31/22 16:25 Blood Culture (Wb) - Left Forearm Blood Culture - Preliminary 12/31/22 17:00 Urine, Catheterized Urine Culture - Preliminary Mixed Gram Positive Organisms 12/31/22 17:00 Nasal Secretion SARS-CoV-2 & FLU Antigen (Rapid) - Final Physical Exam Const alert Constitutional Narrative: non-verbal HEENT head/scalp atraumatic and moist oral mucous membranes Resp normal respiratory effort, no retractions, no use of accessory muscles and clearto auscultation bilaterally Cardio regular rate, regular rhythm, S1 normal heart sound and S2 normal heart sound GI normal to inspection, nondistended, normoactive bowel sounds and soft to palpation Extremity Extremity Narrative: edema in LE. Assessment & Plan Assessment/Plan (1) Metabolic encephalopathy: PLAN: Acute Metabolic Encephalopathy secondary dehydration. Avoid potentiating medications (2) Complicated UTI (urinary tract infection): PLAN: Ruled out. Only 0-5 WBCs on UA. DC abx and observe. (3) Bacteremia: PLAN: 2 of 2 positive for GPC in clusters. Concerning for S. aureua (unclear source) Start vancomycin Follow up cultures Repeat BCx pending. PLAN: Plan The patient is a 47 y/o M w/ PMHx: HTN, MRDD component with associated Seizure disorder, Marfan syndrome w/ known dilated aortic root 5.0 cm, Anxiety who presents to the [facility] ED on 12/31/22 with history of notable decreased oral intake including both food and liquids with elevated temperatures at home reported as febrile per family although unable to give exact temperature with no emesis but potentially nausea and no significant pain however patient's urine has smelled significantly foul prompting family to bring him in for evaluation. Chronic conditoins: * Normocytic anemia, acute on previously chronically noted 2019: Admission hemoglobin 12.5, prior to this 04/21/2020 214.3 however in 2019 patient did have a baseline 10-12 however this is suspected to be likely more acute phase, guaiac requested, iron panel, ferritin. * Known dilated aortic root: Most recent CT chest with contrast noted 06/03/2020 with aneurysmal dilatation aortic root measuring 5 cm in transverse dimension with normal caliber of the descending aorta and aortic arch, encourage continued outpatient follow-up and evaluation. * Underlying MRDD with limited interactive ability baseline, Seizure disorder: We will continue patient home phenobarbital as well as Depakote level. Level requested given encephalopathy on chronic decreased cognitive ability. If level is low given decreased intake ability or unable to take his oral AEDs will transition to IV with load if level notably decreased. * Anxiety: We will continue twice daily clonazepam regimen. * Hypothyroidism: We will continue patient levothyroxine regimen. * Hypertension: We will continue patient home atenolol regimen with hold parameters although patient runs routinely systolic in the 90s from review of records. * Seizure disorder: continue phenobarbital DVT prophylaxis: Lovenox. CODE status: DNR-CCA, no intubation status. Charges/Coding Visit Charges Inpatient E&M: 97765 Subs Hosp L2 01/02/23 1027 <Electronically signed by Mario Chaidez DO> Cosigner Signature (if applicable): CC: ~ Signed [facility] Work Phone: 1(640) 420-724504-21-[address] Chaidez [facility] January 01, 2023 4:52pm Note Date/Time January 01, 2023 4:3 5pm [facility] Medical Records Department [address] [place] [address] Pharmacokinetic/Renal -Consult 01/01/23 1635 MR#: [id number] Acct: [id number] Name: GEORGES COTTO Rep #:[id number] : 1975 47 From: Sue Jarrell PCP: Dr. Saranya Casper MD Status:ADM I N Y Location: [place] [address] Consult Pharmacy has been consulted to manage selected antiobiotic: Vancomycin Type of Consult: New start Suspected Infection: Other Labs: Sodium 139 mmol/L (136-145) 01/01/23 06:15 Potassium 3.8 mmol/L (3.5-5.1) 01/01/23 06:15 Chloride 113 mmol/L (98-107) H 01/01/23 06:15 Carbon Dioxide 23.0 mmol/L (21.0-32.0) 01/01/23 06:15 Anion Gap 3 (5-15) L 01/01/23 06:15 BUN 9 mg/dL (7-18) 01/01/23 06:15 Creatinine 0.71 mg/dL (0.70-1.30) 01/01/23 06:15 Est GFR (MDRD) Af Amer 154 mL/min (>60) 01/01/23 06:15 Est GFR (MDRD) Non-Af 127 mL/min (>60) 01/01/23 06:15 BUN/Creatinine Ratio 12.7 RATIO (10-20) 01/01/23 06:15 Glucose 100 mg/dL (74-106) 01/01/23 06:15 Microbiology: Microbiology 12/31/22 16:50 Blood Culture (Wb) - Right Forearm Blood Culture - Preliminary 12/31/22 16:25 Blood Culture (Wb) - Left Forearm Blood Culture - Preliminary 12/31/22 17:00 Urine, Catheterized Urine Culture - Preliminary Mixed Gram Positive Organisms 12/31/22 17:00 Nasal Secretion SARS-CoV-2 & FLU Antigen (Rapid) - Final Goal Trough: 15-20 mcg/mL Pharmacy Plan for Drug Dosing: NEW START IV VANCOMYCIN Consulting Physician: Dr. Chaidez Indication: UTI Goal Trough: 15-20 SrCr: 0.71 CrCl: >100mL/min Comments: Loading dose 2000mg IV x1 ordered and administered 01/01/23 @1510 Vancomycin Dose: 1000mg IV Q8h to start 01/01/23 @2300 Pending Level: 01/02/23 @1430, prior to 4th total dose per protocol Pharmacy Service will continue to monitor and adjust dosing as required. 01/01/23 1635 <Electronically signed by Sue Jarrell > Date _ Sue Jarrell 01/01/23 1652 <Electronically signed by Mario Chaidez DO> Cosigner Signature (if applicable): Date Mario Chaidez DO CC: ~ Signed [facility] Work Phone: 1(602) 204-477804-21-[address] Chaidez [facility] January 01, 2023 4:52pm Note Date/Time January 01, 2023 7:2 8am [facility] Medical Records Department [address] [place] [address] Progress Note - Hospitalist 01/01/23 0722 MR#: [id number] Acct: [id number] Name: GEORGES COTTO Rep #:[id number] : 1975 47 From: Mario Chaidez DO PCP: Dr. Saranya Casper MD Status:ADM I N Location: [place] [address] Reason for Visit Reason for Visit: Diagnoses Urinary tract infection, site not specified (12/31/22) Subjective Subjective Awake but non verbal. Objective Data Objective Data Vital Signs: Vital Signs Temp Pulse Resp BP Pulse Ox O2 Del Method 36.8 C 61 18 115/88 H 96 Room Air 01/01/23 05:06 01/01/23 05:06 01/01/23 05:06 01/01/23 05:06 01/01/23 06:32 01/01/23 06:32 Oxygen Delivery Method Room Air Weight: 75 kg Body Mass Index (BMI) 21.2 Intake & Output: Intake and Output for Last 24 Hours 12/30/22 12/31/22 01/01/23 23:59 23:59 23:59 Intake Total 2550 / 2650 1060 / 1060 Output Total 550 / 550 Balance 2550 / 2650 510 / 510 Lab / Micro Data Result Diagrams: 01/01/23 06:15 01/01/23 06:15 Labs: Laboratory Results - last 24 hr 12/31/22 16:25: WBC 11.4 H, RBC 4.04 L, Hgb 12.5 L, Hct 37.6 L, MCV 93.1, MCH 30.9, MCHC 33.2, RDW Std Deviation 41.3, RDW Coeff of Bel 11.9, Plt Count 325, MPV 9.8, Immature Gran % (Auto) 0.400, Neut % (Auto) 54.0, Lymph % (Auto) 29.0, [place] % (Auto) 15.7 H, Eos % (Auto) 0.4, Baso % (Auto) 0.5, Absolute Neuts (auto)6.1, Absolute Lymphs (auto) 3.29, Nucleated RBC % 0, Differential Comment SCANNED, Diff Path Review January foll 12/31/22 16:25: PT 14.8, INR 1.2, APTT 39.2 H 12/31/22 16:25: Sodium 136, Potassium 3.8, Chloride 107, Carbon Dioxide 23.0, Anion Gap 6, BUN 14, Creatinine 0.82, Estim Creat Clear Calc 123.39, Est GFR (MDRD) Af Amer 130, Est GFR (MDRD) Non-Af 107, BUN/Creatinine Ratio 17.0, Glucose 103, Calcium 8.8, Total Bilirubin 0.30, AST 21, ALT 19, Alkaline Phosphatase 56, Troponin I High Sens 66, Total Protein 7.6, Albumin 2.6 L, Globulin 5.0 H, Albumin/Globulin Ratio 0.5 L 12/31/22 16:25: Valproic Acid 78 12/31/22 16:25: Lactic Acid 1.2 12/31/22 16:25: Phosphorus 3.1, Magnesium 1.8 12/31/22 16:25: Valproic Acid Cancelled 12/31/22 17:00: Urine Color Betzaida, Urine Clarity Cloudy, Urine pH 6.0, Ur Specific [place] 1.020, Urine Protein 15 H, Urine Glucose (UA) Normal, Urine Ketones 15 H, Urine Occult Blood 250 H, Urine Nitrite Positive H, Urine Bilirubin 1 H, Urine Urobilinogen 4 H, Ur Leukocyte Esterase 25 H, Urine RBC 0-5SEEN, Urine WBC 0-5 SEEN, Ur Squamous Epith Cells 0 SEEN, Urine Bacteria 4+, Urine Mucus 0 SEEN 01/01/23 06:15: WBC 7.8, RBC 3.62 L, Hgb 11.3 L, Hct 34.6 L, MCV 95.6 H, MCH 31.2, MCHC 32.7, RDW Std Deviation 42.5, RDW Coeff of Bel 12.1, Plt Count 257, MPV 9.6, Immature Gran % (Auto) 0.400, Neut % (Auto) 61.1, Lymph % (Auto) 23.7, [place] % (Auto) 13.5 H, Eos % (Auto) 0.8, Baso % (Auto) 0.5, Absolute Neuts (auto)4.7, Absolute Lymphs (auto) 1.84, Nucleated RBC % 0 01/01/23 06:15: Sodium 139, Potassium 3.8, Chloride 113 H, Carbon Dioxide 23.0, Anion Gap 3 L, BUN 9, Creatinine 0.71, Estim Creat Clear Calc 137.91, Est GFR (MDRD) Af Amer 154, Est GFR (MDRD) Non-Af 127, BUN/Creatinine Ratio 12.7, [id number], Calcium 8.3 L, Iron 35 L, TIBC 180 L, Iron Saturation 19.4, Ferritin 195, Total Bilirubin 0.20, AST 11 L, ALT 14 L, Alkaline Phosphatase 48, Total Protein6.5, Albumin 2.2 L, Globulin 4.3 H, Albumin/Globulin Ratio 0.5 L Micro: Microbiology 12/31/22 17:00 Nasal Secretion SARS-CoV-2 & FLU Antigen (Rapid) - Final Radiography Diagnostic Testing: Radiology Impression Chest X-Ray 12/31/22 16:40 IMPRESSION: No acute cardiopulmonary disease or interval change Electronically Signed: Alfred Almonte DO at 16:56 EDT Reading Location ID and State: [address] [place] [address] Tel [phone], Service support , Physical Exam Const alert Constitutional Narrative: non verbal. does not follow commands. Eyes Eyes Narrative: shimmering visible clear fluid in bilateral anterior chambers of his eyes. Resp normal respiratory effort, no retractions, no use of accessory muscles and clearto auscultation bilaterally Cardio regular rate, regular rhythm, S1 normal heart sound and S2 normal heart sound GI normal to inspection, nondistended, normoactive bowel sounds, soft to palpation and non-tender Assessment & Plan Assessment/Plan (1) Metabolic encephalopathy: PLAN: Acute Metabolic Encephalopathy secondary dehydration. Avoid potentiating medications (2) Complicated UTI (urinary tract infection): PLAN: Ruled out. Only 0-5 WBCs on UA. DC abx and observe. (3) Bacteremia: PLAN: Unclear if true infection v contamination 1 of 2 positive for GPC in clusters. Concerning for S. aureua (unclear source) Start vancomycin Follow up cultures, recheck cultures. PLAN: Plan The patient is a 47 y/o M w/ PMHx: HTN, MRDD component with associated Seizure disorder, Marfan syndrome w/ known dilated aortic root 5.0 cm, Anxiety who presents to the [facility] ED on 12/31/22 with history of notable decreased oral intake including both food and liquids with elevated temperatures at home reported as febrile per family although unable to give exact temperature with no emesis but potentially nausea and no significant pain however patient's urine has smelled significantly foul prompting family to bring him in for evaluation. Chronic conditoins: * Normocytic anemia, acute on previously chronically noted 2019: Admission hemoglobin 12.5, prior to this 04/21/2020 214.3 however in 2019 patient did have a baseline 10-12 however this is suspected to be likely more acute phase, guaiac requested, iron panel, ferritin. * Known dilated aortic root: Most recent CT chest with contrast noted 06/03/2020 with aneurysmal dilatation aortic root measuring 5 cm in transverse dimension with normal caliber of the descending aorta and aortic arch, encourage continued outpatient follow-up and evaluation. * Underlying MRDD with limited interactive ability baseline, Seizure disorder: We will continue patient home phenobarbital as well as Depakote level. Level requested given encephalopathy on chronic decreased cognitive ability. If level is low given decreased intake ability or unable to take his oral AEDs will transition to IV with load if level notably decreased. * Anxiety: We will continue twice daily clonazepam regimen. * Hypothyroidism: We will continue patient levothyroxine regimen. * Hypertension: We will continue patient home atenolol regimen with hold parameters although patient runs routinely systolic in the 90s from review of records. * Seizure disorder: continue phenobarbital DVT prophylaxis: Lovenox. CODE status: DNR-CCA, no intubation status. Charges/Coding Visit Charges Inpatient E&M: 83929 Subs Hosp L2 01/01/23 1652 <Electronically signed by Mario Chaidez DO> Cosigner Signature (if applicable): CC: ~ Signed [facility] Work Phone: 1(317) 886-930304-20-[address] Ahmadi [facility] December 31, 2022 8:21pm Note Date/Time December 31, 2022 4:2 9pm [facility] Medical Records Department [address] [place] [address] Emergency Department Summary 12/31/22 MR#: [id number] Acct: [id number] Name: GEORGES COTTO Rep #:[id number] : 1975 47 From: Jorge L Ahmadi DO PCP: Dr. Saranya Casper MD Status:ADM I N Location: [place] [address] Jorge L Ahmadi DO on 12/31/22 at 2020 EKG interpreted by myself shows a sinus tachycardia at a ventricular rate of 106bpm without signs of ischemia. 12/31/222020<Electronically signed by Jorge L Ahmadi DO> Cosigner Signature (if applicable): cc: Dr. Saranya Casper MD ~* Signed HPI History of Present Illness Chief Complaint: General Illness Narrative Narrative: 47-year-old male presenting with his family out of concern for not eating and drinking well. Patient reportedly has had fevers at home although the family cannot tell me what his temperature was. They state that it is off-and-on. Patient refusing to eat food for about 4 days. He is not vomiting. He is not complaining of any pain. Patient's family notes a strong smell of urine. Patient is a poor informant and unable to give any information. [facility] Medical History Anxiety Dilatation of aortic root due to Marfan syndrome Essential hypertension Hypothyroidism Marfan syndrome Seizure disorder Home Medications atenolol 50 mg tablet 50 mg PO BID BP 01/15/18 [History Last Taken Unknown] clonazepam 0.5 mg tablet 0.5 mg PO BID ANXIETY 03/22/19 [History Last Taken Unknown] levothyroxine 75 mcg tablet 75 mcg PO DAILY THYROID 03/22/19 [History Last Taken Unknown] Divalproex Sodium [Divalproex Sodium Er] 1,500 mg PO QHS SEIZURES 04/24/20 [History Last Taken Unknown] multivitamin with minerals 1 tab PO DAILY SUPPLEMENT 04/24/20 [History Last Taken Unknown] phenobarbital 64.8 mg tablet 64.8 mg PO DAILY SEIZURES 04/24/20 [History Last Taken Unknown] potassium chloride 20 mEq tablet,extended release(part/cryst) 20 meq PO DAILY #10 tabs 04/27/20 [Rx Last Taken Unknown] Allergy/AdvReac Type Severity Reaction Status Date / Time No Known Allergies Allergy Verified 12/31/22 16:13 Family History Mother Hypertension Marfans syndrome Uncle Marfans syndrome Ruptured, aorta Uncle Marfans syndrome Ruptured, aorta Surgical History dislocated lenses, removed hamstring lengthening bilateral Social History household members: family Smoking Status: Never smoker alcohol intake: never substance use type: does not use caffeine: Yes Type: carbonated beverages Number of servings: 1 and coffee Number of servings: 2 ROS ROS ED Review of Systems ROS Unobtainable: due to mental condition and due to mental status EXAM Physical Exam Const Vital Signs: 12/31/22 16:14 12/31/22 16:17 12/31/22 16:29 Temperature 98.2 F 102.9 F H Temperature Source Temporal Axillary Pulse Rate 74 108 H Respiratory Rate 18 24 H Respiratory Effort Normal Non-Labored Respiratory Pattern Normal Blood Pressure 111/74 95/61 Blood Pressure Mean 86 72 Pulse Ox 95 93 Oxygen Delivery Method Room Air Room Air 12/31/22 17:30 Temperature 97.8 F Temperature Source Oral Pulse Rate 94 Respiratory Rate 18 Respiratory Effort Respiratory Pattern Blood Pressure 94/51 L Blood Pressure Mean 65 Pulse Ox 95 Oxygen Delivery Method Room Air Positive well nourished General Appearance ED: NAD; Negative for pallor HEENT Reports dry mucous membranes Mouth ED: Yes dry mucous membranes Mouth: dry mucous membranes Eyes PERRL and EOMs intact bilaterally Chest Wall inspection of chest normal and palpation of chest normal Resp normal respiratory effort and clear to auscultation bilaterally Cardio regular rhythm Rate: tachycardic GI normal to inspection, nondistended, normoactive bowel sounds Extremity normal to inspection Neuro CN's II-XII intact bilaterally Sensorium / Orientation: alert Skin no rashes or lesions noted and no wounds General Skin Exam: Negative for jaundice or pallor MDM MDM MDM Narrative Medical decision making narrative: Patient presenting with generalized malaise, decreased p.o. intake, noted to have a fever of 102.9 on arrival. Slightly tachycardic and tachypneic. Patientdoes not have any cough or shortness of breath per his family. They do note strong smell of urine. Patient is history of UTI and sepsis. Sepsis work-up was pursued. Patient was initially given 2 L of normal saline and a gram of Tylenol. Differential includes pneumonia, COVID, influenza, UTI. CBC shows a mild leukocytosis 11.4. Hemoglobin stable at 12.5. Platelets normal 325. PT and INR normal. PTT slightly prolonged at 39.2. Creatinine 0.82 with a normal BUN of 14. Electrolytes within normal limits. Glucose 103. LFTs within normallimits. Lactic acid 1.2. Valproic acid level therapeutic. Urinalysis consistent with UTI. Patient was given a gram of Rocephin. Patient is already been pancultured. Reevaluation at 7 PM patient is doing well. Discussed findings with the patient and his family. Recommended admission for IV antibiotics and IV fluids. Impression: 1. UTI 2. Encephalopathy Lab Data Labs: Laboratory Results - last 24 hr 12/31/22 12/31/22 12/31/22 16:25 16:25 16:25 WBC 11.4 H RBC 4.04 L Hgb 12.5 L Hct 37.6 L MCV 93.1 MCH 30.9 MCHC 33.2 RDW Std Deviation 41.3 RDW Coeff of Bel 11.9 Plt Count 325 MPV 9.8 Immature Gran % (Auto) 0.400 Neut % (Auto) 54.0 Lymph % (Auto) 29.0 [place] % (Auto) 15.7 H Eos % (Auto) 0.4 Baso % (Auto) 0.5 Absolute Neuts (auto) 6.1 Absolute Lymphs (auto) 3.29 Nucleated RBC % 0 Differential Comment SCANNED Diff Path Review January foll PT 14.8 INR 1.2 APTT 39.2 H Sodium 136 Potassium 3.8 Chloride 107 Carbon Dioxide 23.0 Anion Gap 6 BUN 14 Creatinine 0.82 Estim Creat Clear Calc 123.39 Est GFR (MDRD) Af Amer 130 Est GFR (MDRD) Non-Af 107 BUN/Creatinine Ratio 17.0 Glucose 103 Lactic Acid Calcium 8.8 Total Bilirubin 0.30 AST 21 ALT 19 Alkaline Phosphatase 56 Troponin I High Sens 66 Total Protein 7.6 Albumin 2.6 L Globulin 5.0 H Albumin/Globulin Ratio 0.5 L Urine Color Urine Clarity Urine pH Ur Specific [place] Urine Protein Urine Glucose (UA) Urine Ketones Urine Occult Blood Urine Nitrite Urine Bilirubin Urine Urobilinogen Ur Leukocyte Esterase Urine RBC Urine WBC Ur Squamous Epith Cells Urine Bacteria Urine Mucus Valproic Acid 12/31/22 12/31/22 12/31/22 16:25 16:25 17:00 WBC RBC Hgb Hct MCV MCH MCHC RDW Std Deviation RDW Coeff of Bel Plt Count MPV Immature Gran % (Auto) Neut % (Auto) Lymph % (Auto) [place] % (Auto) Eos % (Auto) Baso % (Auto) Absolute Neuts (auto) Absolute Lymphs (auto) Nucleated RBC % Differential Comment Diff Path Review PT INR APTT Sodium Potassium Chloride Carbon Dioxide Anion Gap BUN Creatinine Estim Creat Clear Calc Est GFR (MDRD) Af Amer Est GFR (MDRD) Non-Af BUN/Creatinine Ratio Glucose Lactic Acid 1.2 Calcium Total Bilirubin AST ALT Alkaline Phosphatase Troponin I High Sens Total Protein Albumin Globulin Albumin/Globulin Ratio Urine Color Betzaida Urine Clarity Cloudy Urine pH 6.0 Ur Specific [place] 1.020 Urine Protein 15 H Urine Glucose (UA) Normal Urine Ketones 15 H Urine Occult Blood 250 H Urine Nitrite Positive H Urine Bilirubin 1 H Urine Urobilinogen 4 H Ur Leukocyte Esterase 25 H Urine RBC 0-5 SEEN Urine WBC 0-5 SEEN Ur Squamous Epith Cells 0 SEEN Urine Bacteria 4+ Urine Mucus 0 SEEN Valproic Acid 78 Radiography Diagnostic Testing: Clinical Impression(s) from Imaging Studies Chest X-Ray 12/31/22 16:40 IMPRESSION: No acute cardiopulmonary disease or interval change Electronically Signed: Alfred Almonte DO at 16:56 EDT Reading Location ID and State: [address] [place] [address] Tel [phone], Service support , Discharge Plan Triage Chief Complaint: General Illness ED Provider: Jorge L Ahmadi Dx/Rx/DC Orders Prescriptions: No Action levothyroxine 75 mcg tablet 75 mcg PO DAILY clonazepam 0.5 mg tablet 0.5 mg PO BID atenolol 50 MG tablet 50 mg PO BID phenobarbital 64.8 mg tablet 64.8 mg PO DAILY Label Comments: TAKE 1 TABLET BY MOUTH EVERY DAY multivitamin with minerals 1 EACH tablet 1 tab PO DAILY Divalproex Sodium [Divalproex Sodium Er] 500 MG Tab.Er.24h 1,500 mg PO QHS potassium chloride 20 MEQ tablet 20 meq PO DAILY Qty: 10 0RF Primary Care Provider: Saranya Casper Referrals: Saranya Casper MD [Primary Care Provider] - What to do if you have Problems For any increased pain, shortness of breath, bleeding, nausea or vomiting, chestpain, or any unexpected problems, contact your Primary Care Provider. Call [facility] ([phone]) or report to the closest Emergency Room. Call 911 if necessary. 12/31/221905 <Electronically signed by Jorge L Ahmadi DO> Cosigner Signature (if applicable): CC: Dr. Saranya Casper MD ~ Signed [facility] Work Phone: 1(884) 949-735804-20-2023 History and physical note Author Dr. Tavares [facility] December 31, 2022 7:52pm Note Date/Time December 31, 2022 7:0 6pm [facility] Medical Records Department [address] [place] [address] History & Physical Exam 12/31/221899 MR#: [id number] Acct: [id number] Name: GEORGES COTTO Rep #:[id number] : 1975 47 From: Ivonne Tavares MD PCP: Dr. Saranya Casper MD Status:ADM I N Location: [place] [address] HPI - General General Date of Admission: 12/31/22 Date of Service: 12/31/22 Chief Complaint: Decreased intake, foul urine, increased confusion. HPI Narrative The patient is a 47 y/o M w/ PMHx: HTN, MRDD component with associated Seizure disorder, Marfan syndrome w/ known dilated aortic root 5.0 cm, Anxiety who presents to the [facility] ED on 12/31/22 with history of notable decreased oral intake including both food and liquids with elevated temperatures at home reported as febrile per family although unable to give exact temperature with no emesis but potentially nausea and no significant pain however patient's urine has smelled significantly foul prompting family to bring him in for evaluation. The patient has been more encephalopathic, fatigued. Family present does report that patient can normally move and is up and about and can use the steps however he does have decreased interactive ability and normally does respond with yes or nobut this has been significantly decreased and he has even been active over the last several days because of his acute presentation. Work-up in the ED includedT max 102.9, heart initially 108, BP 95/61, respiratory rate 24, 93% oxygenationwith most recent vital signs T97.8, heart rate 94, BP 94/51, respiratory rate 18, 95% on room air, CBC with WC 11.4, hemoglobin 12.5, MCV 93.1, platelet 325 without marked shift, unremarkable coags aside PTT 39.2, CMP unremarkable, lactic acid 1.2, troponin 66, urinalysis with elevated specific [place] 1.020, protein 15, ketone 15, occult blood 250, positive nitrite, leukocyte Estrace 25 with 4+ urine bacteria but no marked urine WBCs or RBCs, urine culture pending per ED, blood culture x2 pending per ED rapid SARS COVID and influenza negative,chest x-ray with no acute cardiopulmonary findings. In the ED patient administered 3 L NS total, tylenol 1000 mg x 1, rocephin 1 gm, zofran 4 mg IV x 1. [facility] Medical History Anxiety Dilatation of aortic root due to Marfan syndrome Essential hypertension Hypothyroidism Marfan syndrome Seizure disorder Home Medications atenolol 50 mg tablet 50 mg PO BID BP 01/15/18 [History Last Taken Unknown] clonazepam 0.5 mg tablet 0.5 mg PO BID ANXIETY 03/22/19 [History Last Taken Unknown] levothyroxine 75 mcg tablet 75 mcg PO DAILY THYROID 03/22/19 [History Last Taken Unknown] Divalproex Sodium [Divalproex Sodium Er] 1,500 mg PO QHS SEIZURES 04/24/20 [History Last Taken Unknown] multivitamin with minerals 1 tab PO DAILY SUPPLEMENT 04/24/20 [History Last Taken Unknown] phenobarbital 64.8 mg tablet 64.8 mg PO DAILY SEIZURES 04/24/20 [History Last Taken Unknown] potassium chloride 20 mEq tablet,extended release(part/cryst) 20 meq PO DAILY Check with primary doctor 12/31/22 [History Last Taken Unknown] Allergy/AdvReac Type Severity Reaction Status Date / Time No Known Allergies Allergy Verified 12/31/22 16:13 Family History (Updated 12/31/22 @ 19:[address] Ivonne Tavares MD) Mother Hypertension Marfans syndrome Uncle Marfans syndrome Ruptured, aorta Uncle Marfans syndrome Ruptured, aorta Father CAD (coronary artery disease) Heart disease Hypertension Surgical History dislocated lenses, removed hamstring lengthening bilateral Social History (Updated 12/31/22 @ 19:[address] Ivonne Tavares MD) household members: family Smoking Status: Never smoker alcohol intake: never substance use type: does not use caffeine: Yes Type: carbonated beverages Number of servings: 1 and coffee Number of servings: 2 ROS Review of Systems ROS Unobtainable: due to encephalopathy and due to mental condition Vital Signs Vital Signs Vital Signs: 12/31/22 16:14 12/31/22 16:17 12/31/22 16:29 Temperature 98.2 F 102.9 F H Temperature Source Temporal Axillary Pulse Rate 74 108 H Respiratory Rate 18 24 H Respiratory Effort Normal Non-Labored Respiratory Pattern Normal Blood Pressure 111/74 95/61 Blood Pressure Mean 86 72 Pulse Ox 95 93 Oxygen Delivery Method Room Air Room Air 12/31/22 17:30 Temperature 97.8 F Temperature Source Oral Pulse Rate 94 Respiratory Rate 18 Respiratory Effort Respiratory Pattern Blood Pressure 94/51 L Blood Pressure Mean 65 Pulse Ox 95 Oxygen Delivery Method Room Air Weight Weight: 170 lb 13.732 oz Body Mass Index (BMI) 20.7 Physical Exam Narrative Physical Examination: General: Awake, alert but unable to answer any orientation questions, family notes he can usually respond at least yes or no, notably encephalopathic, not following commands, seated upright in the ED bed, fatigued and disheveled appearing. Skin: Normal color, normal turgor, no icterus, no cyanosis except occasional abrasion. HEENT: AT/NC, EOMI but difficult assessment as occurs primarily with walking to each side of the bed, PERRLA, dry MM, no carotid bruits or JVD noted, poor dentition. Lungs: CTA bilaterally, moderate effort, mild decrease BL bases, no rales, ronchi or wheezing. Heart: Proving, mildly tachycardic with regular rhythm; no gallop, rub audible. Abdomen: Soft, NTTP except mild suprapubic discomfort with grimacing with evaluation, ND, hyperactive BS, no HSM. Extremities: No cyanosis, no clubbing, bilateral pedal edema but nonpitting Neurological: Awake, alert but unable to answer any orientation questions, family notes he can usually respond at least yes or no, notably encephalopathic,not following commands, seated upright in the ED bed, fatigued and disheveled appearing, cognitive function reduced baseline with underlying MRDD but currently not baseline intact; pupils equally reactive to light and accommodation, cranial nerves appear grossly normal but difficult assessment, moving all 4 extremities, no focal deficits, strength severely global decrease secondary to acute presentation. Psychiatric: Affect appears flat, fatigued, ill-appearing, no acute evidence of depressive or anxiety feelings but does have underlying anxiety per his. Results Lab / Micro Data Result Diagrams: 12/31/22 16:25 12/31/22 16:25 Labs: Laboratory Results - last 24 hr 12/31/22 16:25: WBC 11.4 H, RBC 4.04 L, Hgb 12.5 L, Hct 37.6 L, MCV 93.1, MCH 30.9, MCHC 33.2, RDW Std Deviation 41.3, RDW Coeff of Bel 11.9, Plt Count 325, MPV 9.8, Immature Gran % (Auto) 0.400, Neut % (Auto) 54.0, Lymph % (Auto) 29.0, [place] % (Auto) 15.7 H, Eos % (Auto) 0.4, Baso % (Auto) 0.5, Absolute Neuts (auto)6.1, Absolute Lymphs (auto) 3.29, Nucleated RBC % 0, Differential Comment SCANNED, Diff Path Review January foll 12/31/22 16:25: PT 14.8, INR 1.2, APTT 39.2 H 12/31/22 16:25: Sodium 136, Potassium 3.8, Chloride 107, Carbon Dioxide 23.0, Anion Gap 6, BUN 14, Creatinine 0.82, Estim Creat Clear Calc 123.39, Est GFR (MDRD) Af Amer 130, Est GFR (MDRD) Non-Af 107, BUN/Creatinine Ratio 17.0, Glucose 103, Calcium 8.8, Total Bilirubin 0.30, AST 21, ALT 19, Alkaline Phosphatase 56, Troponin I High Sens 66, Total Protein 7.6, Albumin 2.6 L, Globulin 5.0 H, Albumin/Globulin Ratio 0.5 L 12/31/22 16:25: Valproic Acid 78 12/31/22 16:25: Lactic Acid 1.2 12/31/22 17:00: Urine Color Bet[place], Urine Clarity Cloudy, Urine pH 6.0, Ur Specific [place] 1.020, Urine Protein 15 H, Urine Glucose (UA) Normal, Urine Ketones 15 H, Urine Occult Blood 250 H, Urine Nitrite Positive H, Urine Bilirubin 1 H, Urine Urobilinogen 4 H, Ur Leukocyte Esterase 25 H, Urine RBC 0-5SEEN, Urine WBC 0-5 SEEN, Ur Squamous Epith Cells 0 SEEN, Urine Bacteria 4+, Urine Mucus 0 SEEN Micro: Microbiology 12/31/22 17:00 Nasal Secretion SARS-CoV-2 & FLU Antigen (Rapid) - Final Radiology Impression Chest X-Ray 12/31/22 16:40 IMPRESSION: No acute cardiopulmonary disease or interval change Electronically Signed: Alfred Almonte DO at 16:56 EDT Reading Location ID and State: [address] [place] [address] Tel [phone], Service support , Assessment & Plan Assessment/Plan (1) Complicated UTI (urinary tract infection): PLAN: Plan The patient is a 47 y/o M w/ PMHx: HTN, MRDD component with associated Seizure disorder, Marfan syndrome w/ known dilated aortic root 5.0 cm, Anxiety who presents to the [facility] ED on 12/31/22 with history of notable decreased oral intake including both food and liquids with elevated temperatures at home reported as febrile per family although unable to give exact temperature with no emesis but potentially nausea and no significant pain however patient's urine has smelled significantly foul prompting family to bring him in for evaluation. #1. Acute Encephalopathy secondary to Acute Complicated Urinary Tract Infectionwith stable chronic low BPs (baseline SBP 90s from review of prior trends of note): Will admit to medical surgical floor, UA upon ED evaluation remarkable, pending UCx, continue IVFs, monitor I/Os, continue IV Rocephin w/ transition as able pending sensitivities and speciation. Bld cx x 2 obtained in the ED. #2. Normocytic anemia, acute on previously chronically noted 2019: Admission hemoglobin 12.5, prior to this 04/21/2020 214.3 however in 2019 patient did have abaseline 10-12 however this is suspected to be likely more acute phase, guaiac requested, iron panel, ferritin. #3. Known dilated aortic root: Most recent CT chest with contrast noted 06/03/2020 with aneurysmal dilatation aortic root measuring 5 cm in transverse dimension with normal caliber of the descending aorta and aortic arch, encouragecontinued outpatient follow-up and evaluation. #4. Underlying MRDD with limited interactive ability baseline, Seizure disorder: We will continue patient home phenobarbital as well as Depakote level.Level requested given encephalopathy on chronic decreased cognitive ability. If level is low given decreased intake ability or unable to take his oral AEDs willtransition to IV with load if level notably decreased. #5. Anxiety: We will continue twice daily clonazepam regimen. #6. Hypothyroidism: We will continue patient levothyroxine regimen. #7. Hypertension: We will continue patient home atenolol regimen with hold parameters although patient runs routinely systolic in the 90s from review of records. #8. DVT prophylaxis: Lovenox. #9. CODE status: Patient does not HCPOA nor living will in place. Discussed CODE status at length with his family present including difference between FULL code, DNR-CCA and DNR-CC status. Following discussions about the differences in these status, requested DNR-CCA, no intubation status. Advanced Care Planning Face to Face Time: 16 minutes. Admission Evaluation Time spent evaluating chart, patient history, patient evaluation, care planning and discussion with specialists: 75 minutes. Charges/Coding Visit Charges Inpatient E&M: 85018 Init Hosp L3 Procedures Hospitalists Procedures: 92793 Advncd Care Plan 30 Min 12/31/221951 <Electronically signed by Ivonne Tavares MD> Cosigner Signature (if applicable): CC: Dr. Ivonne Tavares MD; Dr. Saranya Casper MD~ Signed [facility] Work Phone: 1(213) 551-714704-20-[address] Ahmadi [facility] December 31, 2022 7:06pm Note Date/Time December 31, 2022 4:2 9pm [facility] Medical Records Department [address] [place] [address] Emergency Department Summary 12/31/22 MR#: [id number] Acct: [id number] Name: GEORGES COTTO Rep #:[id number] : 1975 47 From: Jorge L Ahmadi DO PCP: Dr. Saranya Casper MD Status:REG E R Location: ED HPI History of Present Illness Chief Complaint: General Illness Narrative Narrative: 47-year-old male presenting with his family out of concern for not eating and drinking well. Patient reportedly has had fevers at home although the family cannot tell me what his temperature was. They state that it is off-and-on. Patient refusing to eat food for about 4 days. He is not vomiting. He is not complaining of any pain. Patient's family notes a strong smell of urine. Patient is a poor informant and unable to give any information. [facility] Medical History Anxiety Dilatation of aortic root due to Marfan syndrome Essential hypertension Hypothyroidism Marfan syndrome Seizure disorder Home Medications atenolol 50 mg tablet 50 mg PO BID BP 01/15/18 [History Last Taken Unknown] clonazepam 0.5 mg tablet 0.5 mg PO BID ANXIETY 03/22/19 [History Last Taken Unknown] levothyroxine 75 mcg tablet 75 mcg PO DAILY THYROID 03/22/19 [History Last Taken Unknown] Divalproex Sodium [Divalproex Sodium Er] 1,500 mg PO QHS SEIZURES 04/24/20 [History Last Taken Unknown] multivitamin with minerals 1 tab PO DAILY SUPPLEMENT 04/24/20 [History Last Taken Unknown] phenobarbital 64.8 mg tablet 64.8 mg PO DAILY SEIZURES 04/24/20 [History Last Taken Unknown] potassium chloride 20 mEq tablet,extended release(part/cryst) 20 meq PO DAILY #10 tabs 04/27/20 [Rx Last Taken Unknown] Allergy/AdvReac Type Severity Reaction Status Date / Time No Known Allergies Allergy Verified 12/31/22 16:13 Family History Mother Hypertension Marfans syndrome Uncle Marfans syndrome Ruptured, aorta Uncle Marfans syndrome Ruptured, aorta Surgical History dislocated lenses, removed hamstring lengthening bilateral Social History household members: family Smoking Status: Never smoker alcohol intake: never substance use type: does not use caffeine: Yes Type: carbonated beverages Number of servings: 1 and coffee Number of servings: 2 ROS ROS ED Review of Systems ROS Unobtainable: due to mental condition and due to mental status EXAM Physical Exam Const Vital Signs: 12/31/22 16:14 12/31/22 16:17 12/31/22 16:29 Temperature 98.2 F 102.9 F H Temperature Source Temporal Axillary Pulse Rate 74 108 H Respiratory Rate 18 24 H Respiratory Effort Normal Non-Labored Respiratory Pattern Normal Blood Pressure 111/74 95/61 Blood Pressure Mean 86 72 Pulse Ox 95 93 Oxygen Delivery Method Room Air Room Air 12/31/22 17:30 Temperature 97.8 F Temperature Source Oral Pulse Rate 94 Respiratory Rate 18 Respiratory Effort Respiratory Pattern Blood Pressure 94/51 L Blood Pressure Mean 65 Pulse Ox 95 Oxygen Delivery Method Room Air Positive well nourished General Appearance ED: NAD; Negative for pallor HEENT Reports dry mucous membranes Mouth ED: Yes dry mucous membranes Mouth: dry mucous membranes Eyes PERRL and EOMs intact bilaterally Chest Wall inspection of chest normal and palpation of chest normal Resp normal respiratory effort and clear to auscultation bilaterally Cardio regular rhythm Rate: tachycardic GI normal to inspection, nondistended, normoactive bowel sounds Extremity normal to inspection Neuro CN's II-XII intact bilaterally Sensorium / Orientation: alert Skin no rashes or lesions noted and no wounds General Skin Exam: Negative for jaundice or pallor MDM MDM MDM Narrative Medical decision making narrative: Patient presenting with generalized malaise, decreased p.o. intake, noted to have a fever of 102.9 on arrival. Slightly tachycardic and tachypneic. Patientdoes not have any cough or shortness of breath per his family. They do note strong smell of urine. Patient is history of UTI and sepsis. Sepsis work-up was pursued. Patient was initially given 2 L of normal saline and a gram of Tylenol. Differential includes pneumonia, COVID, influenza, UTI. CBC shows a mild leukocytosis 11.4. Hemoglobin stable at 12.5. Platelets normal 325. PT and INR normal. PTT slightly prolonged at 39.2. Creatinine 0.82 with a normal BUN of 14. Electrolytes within normal limits. Glucose 103. LFTs within normallimits. Lactic acid 1.2. Valproic acid level therapeutic. Urinalysis consistent with UTI. Patient was given a gram of Rocephin. Patient is already been pancultured. Reevaluation at 7 PM patient is doing well. Discussed findings with the patient and his family. Recommended admission for IV antibiotics and IV fluids. Impression: 1. UTI 2. Encephalopathy Lab Data Labs: Laboratory Results - last 24 hr 12/31/22 12/31/22 12/31/22 16:25 16:25 16:25 WBC 11.4 H RBC 4.04 L Hgb 12.5 L Hct 37.6 L MCV 93.1 MCH 30.9 MCHC 33.2 RDW Std Deviation 41.3 RDW Coeff of Bel 11.9 Plt Count 325 MPV 9.8 Immature Gran % (Auto) 0.400 Neut % (Auto) 54.0 Lymph % (Auto) 29.0 [place] % (Auto) 15.7 H Eos % (Auto) 0.4 Baso % (Auto) 0.5 Absolute Neuts (auto) 6.1 Absolute Lymphs (auto) 3.29 Nucleated RBC % 0 Differential Comment SCANNED Diff Path Review May foll PT 14.8 INR 1.2 APTT 39.2 H Sodium 136 Potassium 3.8 Chloride 107 Carbon Dioxide 23.0 Anion Gap 6 BUN 14 Creatinine 0.82 Estim Creat Clear Calc 123.39 Est GFR (MDRD) Af Amer 130 Est GFR (MDRD) Non-Af 107 BUN/Creatinine Ratio 17.0 Glucose 103 Lactic Acid Calcium 8.8 Total Bilirubin 0.30 AST 21 ALT 19 Alkaline Phosphatase 56 Troponin I High Sens 66 Total Protein 7.6 Albumin 2.6 L Globulin 5.0 H Albumin/Globulin Ratio 0.5 L Urine Color Urine Clarity Urine pH Ur Specific [place] Urine Protein Urine Glucose (UA) Urine Ketones Urine Occult Blood Urine Nitrite Urine Bilirubin Urine Urobilinogen Ur Leukocyte Esterase Urine RBC Urine WBC Ur Squamous Epith Cells Urine Bacteria Urine Mucus Valproic Acid 12/31/22 12/31/22 12/31/22 16:25 16:25 17:00 WBC RBC Hgb Hct MCV MCH MCHC RDW Std Deviation RDW Coeff of Bel Plt Count MPV Immature Gran % (Auto) Neut % (Auto) Lymph % (Auto) [place] % (Auto) Eos % (Auto) Baso % (Auto) Absolute Neuts (auto) Absolute Lymphs (auto) Nucleated RBC % Differential Comment Diff Path Review PT INR APTT Sodium Potassium Chloride Carbon Dioxide Anion Gap BUN Creatinine Estim Creat Clear Calc Est GFR (MDRD) Af Amer Est GFR (MDRD) Non-Af BUN/Creatinine Ratio Glucose Lactic Acid 1.2 Calcium Total Bilirubin AST ALT Alkaline Phosphatase Troponin I High Sens Total Protein Albumin Globulin Albumin/Globulin Ratio Urine Color [place] Urine Clarity Cloudy Urine pH 6.0 Ur Specific [place] 1.020 Urine Protein 15 H Urine Glucose (UA) Normal Urine Ketones 15 H Urine Occult Blood 250 H Urine Nitrite Positive H Urine Bilirubin 1 H Urine Urobilinogen 4 H Ur Leukocyte Esterase 25 H Urine RBC 0-5 SEEN Urine WBC 0-5 SEEN Ur Squamous Epith Cells 0 SEEN Urine Bacteria 4+ Urine Mucus 0 SEEN Valproic Acid 78 Radiography Diagnostic Testing: Clinical Impression(s) from Imaging Studies Chest X-Ray 12/31/22 16:40 IMPRESSION: No acute cardiopulmonary disease or interval change Electronically Signed: Alfred Almonte DO at 16:56 EDT Reading Location ID and State: [address] [place] [address] Tel [phone], Service support , Discharge Plan Triage Chief Complaint: General Illness ED Provider: Jorge L Ahmadi Dx/Rx/DC Orders Prescriptions: No Action levothyroxine 75 mcg tablet 75 mcg PO DAILY clonazepam 0.5 mg tablet 0.5 mg PO BID atenolol 50 MG tablet 50 mg PO BID phenobarbital 64.8 mg tablet 64.8 mg PO DAILY Label Comments: TAKE 1 TABLET BY MOUTH EVERY DAY multivitamin with minerals 1 EACH tablet 1 tab PO DAILY Divalproex Sodium [Divalproex Sodium Er] 500 MG Tab.Er.24h 1,500 mg PO QHS potassium chloride 20 MEQ tablet 20 meq PO DAILY Qty: 10 0RF Primary Care Provider: Saranya Casper Referrals: Saranya Casper MD [Primary Care Provider] - What to do if you have Problems For any increased pain, shortness of breath, bleeding, nausea or vomiting, chestpain, or any unexpected problems, contact your Primary Care Provider. Call [facility] ([phone]) or report to the closest Emergency Room. Call 911 if necessary. 12/31/22 1906 <Electronically signed by Jorge L Ahmadi DO> Cosigner Signature (if applicable): CC: Dr. Saranya Casper MD ~ Signed [facility] Work Phone: 1(727) 517-558701-27-2023 History of Present illness Narrative* Saranya Casper MD - 10/09/2022 2:35 PM EST Reason for Visit No chief complaint on file. Georges Cotto is a 46 year old male who presents here today for Above Complaints.. Health Maintenance HEPATITIS B(1 of 3 - 3-dose series) COVID-19 VACCINE(1) HEPATITIS C SCREENING HIV SCREENING COLORECTAL CANCER SCREENING INFLUENZA(1) DEPRESSION ASSESSMENT HPI Aneurysm of 5.1, he has not seen ct surgeon at [facility] and has not had a follow up ct, they will be seeing his heart doctors tomorrow- [facility]- and hopefully get follow up imaging done on it. Mother notes that marfans family members have not had any benefit of surgery. Both of them of aneurysms. One just after surgery Mother knows that bp control is most important for the patient. Patient has appointment to see Dr Pierre in november, they did discuss surgery but family declines. Was very deficient in vit d. Has been taking his medication regularly, will need to recheck labs today Has hypothyroidism on the current medication his tsh needs checked but he has been able to take themedication more regularly,he does not take his medication regularly on an empty stomach. We discussed other strategies of helping the patient mother wants to try to make him regular than take more medications than increase the medication, weencouraged him to try to be more compliant with medication. Hypokalemia: patients potassium level needs to be rechecked He has not had seizures since he last saw us, Dr Collins made some medication changes and patient is doing very well with them. He is taking one long acting depakote and that has helped him immensely with his day time alertness. Mixed hyper and dyslipidemia for Georges. Asked that he discuss this with the appraiser boats and marine. Encouraged him to walk and be more active Diet is not the best, a lot of processed foods, he does eat a lot of fruits Activities of daily living- he can eat and toilet by himself. He needs assistance with wearing his clothes, showering and grooming. He is unable to do any of his instrumental activities of daily living and spends most of his time sitting in his home, watching TV, and sleeping. Currently they dont have a caregiver, her son and daughter live with her and they are helping her out. and helps his mother who needed to help because she had been struggling with taking care of him from the shortness of breath she has from her A. fib No problem-specific Assessment & Plan notes found for this encounter. 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 Marfan's syndrome PMH - PAST MEDICAL HISTORY OF dislocated lenses r/t marfans Urinary tract infection, site not specified PAST SURGICAL HISTORY Procedure Laterality Date PAST SURGICAL HISTORY OF 1993 hamstring lengthening bilateral PAST SURGICAL HISTORY OF age 7 dislocated lenses, removed (not replaced) FAMILY HISTORY Problem Relation Age of Onset Hypertension Mother Genetic Mother Arthritis Mother other (marfans) Mother Cancer Maternal Grandmother colon Emphysema Brother Heart Maternal Uncle marfans- ruptured aorta Heart Maternal Uncle marfans - ruptured aorta Diabetes Maternal Aunt Social History Tobacco Use Smoking status: Never Smokeless tobacco: Never Substance Use Topics Alcohol use: No Drug use: No Past medical history, appointments, medications, allergies reviewed. Pertinent Lab/Diagnostic Studies are reviewed and discussed today Current Outpatient Medications: potassium chloride 20 mEq TbER atenolol (TENORMIN) 50 mg tablet levothyroxine (SYNTHROID) 75 mcg tablet ergocalciferol 50,000 unit capsule (VITAMIN D2, DRISDOL) divalproex DR (DEPAKOTE) 500 mg EC tablet clonazePAM (KLONOPIN) 0.5 mg tablet Comp Stocking,Knee,Long,Medium misc divalproex DR (DEPAKOTE) 500 mg EC tablet multivitamin tablet Review of Systems CONSTITUTIONAL: No fevers, chills night sweats, unintended weight loss CARDIOVASCULAR: No chest pain, dyspnea, palpitations, orthopnea, PND, ankle edema. PULM: No dyspnea, unexplained cough. GI: No dysphagia/odynophagia, problematic reflux, constipation, diarrhea, changes in stool habits, hematochezia, melena. : No new urinary complaints, including dysuria, gross hematuria or pyuria. NEURO: No new balance problems, peripheral weakness/paresthesias or numbness of concern. Physical Exam BP 108/56 (BP Site: Right Arm, BP Position: Sitting, BP Cuff Size: Large Adult) Pulse 60 Temp 36.1 C (97 F) Resp 12 Ht 188 cm (6' 2) SpO2 96% BMI 23.11 kg/m General appearance: Well appearing, alert, in no acute distress, well nourished. Skin: Skin color, texture, turgor normal, no suspicious rashes or lesions Head: Normocephalic, no masses, lesions, tenderness or abnormalities Eyes: Anicteric sclera. Pupils are equally round and reactive to light. Extraocular movements are intact. Lungs: Lungs clear to auscultation. No wheezing, rhonchi, rales Heart: RRR without murmur, gallop, or rubs. Extremities: No deformities, edema, skin discoloration, clubbing or cyanosis. Good capillary refill. ASSESSMENT/PLAN: 1. Hypothyroidism, unspecified type - ICD9: 244.9, ICD10: E03.9 (primary diagnosis) - Instructed patient on importance of taking on an empty stomach either first thing in the morning or at bedtime. We need to check labs for the patient - TSH BLD 2. Essential hypertension - ICD9: 401.9, ICD10: I10 - good control - Recommended regular aerobic exercise. - Recommend home blood pressure monitoring, to bring results in on next visit - Goal of BP <130/80 - CBC + DIFF - BASIC METABOLIC PNL 3. Vitamin D deficiency - ICD9: 268.9, ICD10: E55.9 - VITAMIN D 25 HYDROXY 4. Vitamin B12 deficiency - ICD9: 266.2, ICD10: E53.8 - VITAMIN B12 BLOOD 5. Marfan's syndrome - ICD9: 759.82, ICD10: Q87.40 He has aneurysm and with everything put together with appraiser boats and marine he has decided that he does not want to have surgery at this point the whole family is on board with this. They do understand the risks but surgery has not done well with their family everyone has after surgery so this is not something they want to pursue 6. Bladder atony - ICD9: 596.4, ICD10: N31.2 Thyroid is usually dry in the morning only that night is not able to get up to pass urine 8. Seizure Disorder - ICD9: 345.90, ICD10: G40.909 Patient has not had seizures since he first saw me Saranya Casper MD documented in this encounterTri[facility] Miscellaneous Notes* Telephone Encounter - Rochelle Antoine - 09/15/2022 1:42 PM EST Patient has been identified by name and date of : Yes Requested Prescriptions Pending Prescriptions Disp Refills potassium chloride 20 mEq TbER 30 tablet 5 Sig: Take 1 tablet by mouth once daily. JUAN JOSE-12/15/21 Labs-12/15/21 NOV-10/09/22 med filled 02/13/22 RX INSTRUCTIONS: Patient aware RX will be sent to pharmacy. No need to notify patient. 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 Elizabeth Godfrey LPN documented in this encounterTri[facility]06-02-2022 Miscellaneous Notes* Telephone Encounter - Geovanna Rob RN - 02/12/2022 3:44 PM EDT Patient has been identified by name and date of : Yes Parent/Guardian phones for refill(s): Pending Prescriptions Disp Refills POTASSIUM CHLORIDE ER 20 MEQ TABLET,EXTENDED RELEASE 30 tablet 2 Sig: Take 1 tablet by mouth once daily. NOLVIA: No Date of last office visit in primary care: 12/15/2021 Last 2 Encounter Wt Readings: Date: Wt: 12/15/2021 81.6 kg (180 lb) 11/13/2020 83 kg (183 lb) Previous labs/tests for medication: Component Latest Ref Rng & Units 12/15/2021 Potassium 3.7 - 5.1 mmol/L 4.0 Please advise. Thank you. Geovanna Rob RN documented in this encounterTri[facility]04-25-2022 Miscellaneous Notes* Telephone Encounter - Vicky Fountain LPN - 01/05/2022 2:36 PM EDT Last seen pcp 12/15/21. Next appt with pcp 06/19/22. * Telephone Encounter - Marry Martinez Pss - 01/05/2022 2:19 PM EDT Patient has been identified by name and date of : Yes Pending Prescriptions Disp Refills ATENOLOL 50 MG TABLET 180 tablet 3 Sig: Take 1 tablet by mouth twice daily. NOLVIA: No RX INSTRUCTIONS: Please send by tomorrow Patient aware RX will be sent to pharmacy. No need to notify patient. Marry Martinez Pss documented in this encounterTri[facility]04-08-2022 Miscellaneous Notes* Telephone Encounter - Georgina Ram Ma - 12/19/2021 10:24 AM EDT Patient mother notified. * Telephone Encounter - Saranya Casper MD - 12/19/2021 7:01 AM EDT Please let patients mother know that , it seems like his thyroid is not controlled, If he ever missed a dose, please give that does to him the next day in addition to what he is to take that day. Also please give him 2 tablets every Wednesday and not just one tablet. Please inform patient of very low vitamin d levels, We are giving her replacement doses, sent to her regular pharmacy. This might help in the overall mood and energy. He needs to take it immediately after eating. documented in this encounterTrihealth [facility]04-04-2022 History of Present illness Narrative* Saranya Casper MD - 12/15/2021 3:32 PM EDT Reason for Visit Patient presents with: Established Patient: 6 month follow up Georges Cotto is a 46 year old male who presents here today for Above Complaints.. 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 Mother notes that marfans family members have not had any benefit of surgery. Both of them of aneurysms. One just after surgery Mother knows that bp control is most important for the patient. Has hypothyroidism on the current medication his tsh was high minimally ,he does not take his medication regularly on am empty stomach. We discussed other strategies of helping the patient mother wants to try to make him regular than take more medications than increase the medication, weencouraged him to try to be more compliant with medication. Hypokalemia: patients potassium level needs to be rechecked He has not had seizures since he last saw us, Dr Collins made some medication changes and patient is doing very well with them. He is taking one long acting depakote and that has helped him immensely with his day time alertness. Mixed hyper and dyslipidemia for Georgse. Asked that he discuss this with the appraiser boats and marine. Encouraged him to walk and be more active Diet is not the best, a lot of processed foods, he does eat a lot of fruits Activities of daily living- he can eat and toilet by himself. He needs assistance with wearing his clothes, showering and grooming. He is unable to do any of his instrumental activities of daily living and spends most of his time sitting in his home, watching TV, and sleeping. Currently they have a caregiver who comes and helps his mother who needed to help because she had been struggling with taking care of him from the shortness of breath she has from her A. rebeca No problem-specific Assessment & Plan notes found for this encounter. 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 Marfan's syndrome PMH - PAST MEDICAL HISTORY OF dislocated lenses r/t marfans Urinary tract infection, site not specified PAST SURGICAL HISTORY Procedure Laterality Date PAST SURGICAL HISTORY OF 1993 hamstring lengthening bilateral PAST SURGICAL HISTORY OF age 7 dislocated lenses, removed (not replaced) FAMILY HISTORY Problem Relation Age of Onset Hypertension Mother Genetic Mother Arthritis Mother other (marfans) Mother Cancer Maternal Grandmother colon Emphysema Brother Heart Maternal Uncle marfans- ruptured aorta Heart Maternal Uncle marfans - ruptured aorta Diabetes Maternal Aunt Social History Tobacco Use Smoking status: Never Smoker Smokeless tobacco: Never Used Substance Use Topics Alcohol use: No Drug use: No Past medical history, appointments, medications, allergies reviewed. Pertinent Lab/Diagnostic Studies are reviewed and discussed today Current Outpatient Medications: potassium chloride 20 mEq TbER atenolol (TENORMIN) 50 mg tablet levothyroxine (SYNTHROID) [address] (DEPAKOTE) 500 mg EC tablet clonazePAM (KLONOPIN) 0.5 mg tablet Comp Stocking,Knee,Long,Medium misc divalproex DR (DEPAKOTE) 500 mg EC tablet multivitamin tablet Review of Systems CONSTITUTIONAL: No fevers, chills night sweats, unintended weight loss CARDIOVASCULAR: No chest pain, dyspnea, palpitations, orthopnea, PND, ankle edema. PULM: No dyspnea, unexplained cough. GI: No dysphagia/odynophagia, problematic reflux, constipation, diarrhea, changes in stool habits, hematochezia, melena. : No new urinary complaints, including dysuria, gross hematuria or pyuria. NEURO: No new balance problems, peripheral weakness/paresthesias or numbness of concern. Physical Exam Pulse 68 Temp 36 C (96.8 F) Resp 12 Ht 188 cm (6' 2) Wt 81.6 kg (180 lb) SpO2 98% BMI 23.11 kg/m General appearance: Well appearing, alert, in no acute distress, well nourished. Skin: Skin color, texture, turgor normal, no suspicious rashes or lesions Head: Normocephalic, no masses, lesions, tenderness or abnormalities Eyes: Anicteric sclera. Pupils are equally round and reactive to light. Extraocular movements are intact. Lungs: Lungs clear to auscultation. No wheezing, rhonchi, rales Heart: RRR without murmur, gallop, or rubs. Extremities: No deformities, edema, skin discoloration, clubbing or cyanosis. Good capillary refill. ASSESSMENT/PLAN: 1. Aortic Root Dilatation - ICD9: 447.71, ICD10: I77.810 (primary diagnosis) 2. Hypothyroidism, unspecified type - ICD9: 244.9, ICD10: E03.9 - Instructed patient on importance of taking on an empty stomach either first thing in the morning or at bedtime. Stable - Continue current medications - LEVOTHYROXINE 75 MCG TABLET - TSH BLD - T4 FREE/FREE THYROX - T3 FREE BLD 3. Essential hypertension - ICD9: 401.9, ICD10: I10 - good control - Recommended regular aerobic exercise. - Recommend home blood pressure monitoring, to bring results in on next visit - Goal of BP <130/80 - COMP METABOLIC PANEL - CBC + DIFF - LIPID PANEL BASIC - LIPID PANEL, NONFASTING 4. Seizure Disorder - ICD9: 345.90, ICD10: G40.909 cont the seizure medication as is 5. Marfan's syndrome - ICD9: 759.82, ICD10: Q87.40 He has to 6. Vitamin D deficiency - ICD9: 268.9, ICD10: E55.9 - VITAMIN D 25 HYDROXY 7. Vitamin B 12 deficiency - ICD9: 266.2, ICD10: E53.8 - VITAMIN B12 BLOOD Saranya Casper MD documented in this encounterTri[facility]11-17-2005 History of Past illness Narrative* Problem Noted Date Resolved Date Calculus of kidney 07/30/2005 01/02/2010 Urinary tract infection, site not specified 07/1401/02/2010 documented as of this encounter (statuses as of 12/15/2021) [facility]11-17-2005 History of Past illness Narrative* Problem Noted Date Resolved Date Calculus of kidney 07/30/2005 01/02/2010 Urinary tract infection, site not specified 07/1401/02/2010 documented as of this encounter (statuses as of 12/19/2021) [address] History of Past illness Narrative* Problem Noted Date Resolved Date Calculus of kidney 07/30/2005 01/02/2010 Urinary tract infection, site not specified 07/1401/02/2010 documented as of this encounter (statuses as of 01/05/2022) [address]17-2005 History of Past illness Narrative* Problem Noted Date Resolved Date Calculus of kidney 07/30/2005 01/02/2010 Urinary tract infection, site not specified 07/1401/02/2010 documented as of this encounter (statuses as of 01/26/2022) [address]17-2005 History of Past illness Narrative* Problem Noted Date Resolved Date Calculus of kidney 07/30/2005 01/02/2010 Urinary tract infection, site not specified 07/1401/02/2010 documented as of this encounter (statuses as of 02/13/2022) [address]17-2005 History of Past illness Narrative* Problem Noted Date Resolved Date Calculus of kidney 07/30/2005 01/02/2010 Urinary tract infection, site not specified 07/1401/02/2010 documented as of this encounter (statuses as of 06/04/2022) [address]17-2005 History of Past illness Narrative* Problem Noted Date Resolved Date Calculus of kidney 07/30/2005 01/02/2010 Urinary tract infection, site not specified 07/1401/02/2010 documented as of this encounter (statuses as of 09/17/2022) [address]17-2005 History of Past illness Narrative* Problem Noted Date Resolved Date Calculus of kidney 07/30/2005 01/02/2010 Urinary tract infection, site not specified 07/1401/02/2010 documented as of this encounter (statuses as of 10/09/2022) [address]17-2005 History of Past illness Narrative* Problem Noted Date Resolved Date Calculus of kidney 07/30/2005 01/02/2010 Urinary tract infection, site not specified 07/1401/02/2010 documented as of this encounter (statuses as of 01/07/2023) [address]2005 History of Past illness Narrative* Problem Noted Date Resolved Date Calculus of kidney 07/30/2005 01/02/2010 Urinary tract infection, site not specified 07/1401/02/2010 documented as of this encounter (statuses as of 01/08/2023) [address]2005 History of Past illness Narrative* Problem Noted Date Resolved Date Calculus of kidney 07/30/2005 01/02/2010 Urinary tract infection, site not specified 07/1401/02/2010 documented as of this encounter (statuses as of 01/09/2023) [address]17-2005 History of Past illness Narrative* Problem Noted Date Resolved Date Calculus of kidney 07/30/2005 01/02/2010 Urinary tract infection, site not specified 07/1401/02/2010 documented as of this encounter (statuses as of 02/11/2023) [address]2005 History of Past illness Narrative* Problem Noted Date Diagnosed Date Resolved Date Calculus of kidney 07/30/2005 0 Urinary tract infection, site not specified 07/30/2005 01/02/2010 documented as of this encounter (statuses as of 03/31/2023) [address]17-2005 History of Past illness Narrative* Problem Noted Date Diagnosed Date Resolved Date Calculus of kidney 07/30/2005 0 Urinary tract infection, site not specified 07/30/2005 01/02/2010 documented as of this encounter (statuses as of 04/21/2023) [address]2005 History of Past illness Narrative* Problem Noted Date Diagnosed Date Resolved Date Calculus of kidney 07/30/2005 0 Urinary tract infection, site not specified 07/30/2005 01/02/2010 documented as of this encounter (statuses as of 04/24/2023) [address]-2005 History of Past illness Narrative* Problem Noted Date Diagnosed Date Resolved Date Calculus of kidney 07/30/2005 0 Urinary tract infection, site not specified 07/30/2005 01/02/2010 documented as of this encounter (statuses as of 04/27/2023) [address]17-2005 History of Past illness Narrative* Problem Noted Date Diagnosed Date Resolved Date Calculus of kidney 07/30/2005 0 Urinary tract infection, site not specified 07/30/2005 01/02/2010 documented as of this encounter (statuses as of 04/29/2023) [address]17-2005 History of Past illness Narrative* Problem Noted Date Diagnosed Date Resolved Date Calculus of kidney 07/30/2005 0 Urinary tract infection, site not specified 07/30/2005 01/02/2010 documented as of this encounter (statuses as of 05/20/2023) [address]17-2005 History of Past illness Narrative* Problem Noted Date Diagnosed Date Resolved Date Calculus of kidney 07/30/2005 0 Urinary tract infection, site not specified 07/30/2005 01/02/2010 documented as of this encounter (statuses as of 06/05/2023) [address]17-2005 History of Past illness Narrative* Problem Noted Date Diagnosed Date Resolved Date Calculus of kidney 07/30/2005 0 Urinary tract infection, site not specified 07/30/2005 01/02/2010 documented as of this encounter (statuses as of 06/22/2023) [facility] Diagnosis Aortic Root Dilatation- Primary Thoracic aortic ectasia Hypothyroidism, unspecified type Essential hypertension Unspecified essential hypertension Seizure Disorder Unspecified epilepsy without mention of intractable epilepsy Marfan's syndrome Vitamin D deficiency Unspecified vitamin D deficiency Vitamin B 12 deficiency Other B-complex deficiencies [facility] this encounter [facility] Diagnosis Hypothyroidism, unspecified type [facility] Diagnosis Essential hypertension Unspecified essential hypertension [facility] Diagnosis Onset Date Resolution Status Dilatation of aortic root due to Marfan syndrome chronic Essential hypertension chron ic [facility] Work Phone: Evaluation noteNo assessment information available [facility] Work Phone: Evaluation note* Diagnosis Hypothyroidism, unspecified type- Primary Essential hypertension Unspecified essential hypertension Vitamin D deficiency Unspecified vitamin D deficiency Vitamin B12 deficiency Other B-complex deficiencies Marfan's syndrome Bladder atony Atony of bladder Aortic Root Dilatation Thoracic aortic ectasia Seizure Disorder Unspecified epilepsy without mention of intractable epilepsy [facility] Diagnosis Onset Date Resolution Status Complicated UTI (urinary tract infection) acute [facility] Work Phone: Evaluation note* Diagnosis Onset Date Resolution Status Bacteremia acute Complicated UTI (urinary tract infection) acute Hypokalemia acute Lens disorder acute Metabolic encephalopathy acu te [facility] Work Phone: Evaluation note* Diagnosis Onset Date Resolution Status Lens disorder acute Complicated UTI (urinary tract infection) resolved Metabolic encephalopathy res olved [facility] Work Phone: Evaluation note* Diagnosis Hospital discharge follow-up- Primary Other follow-up examination Essential hypertension Unspecified essential hypertension Hypothyroidism, unspecified type Urinary tract infection without hematuria, site unspecified Seizure disorder (HCC) Unspecified epilepsy without mention of intractable epilepsy [facility] Diagnosis Debility- Primary Debility, unspecified Decreased ambulation status Other general symptoms Marfan's syndrome [facility] Diagnosis Essential hypertension- Primary Unspecified essential hypertension Intellectual disability Unspecified intellectual disabilities Debility Debility, unspecified Decreased ambulation status Other general symptoms Infestation by bed bug Other specified infestations Seizure Disorder Unspecified epilepsy without mention of intractable epilepsy Hypothyroidism, unspecified type Hyperlipidemia, unspecified hyperlipidemia type [facility] Diagnosis Onset Date Resolution Status Dilatation of aortic root due to Marfan syndrome chronic Essential hypertension chron ic Marfan syndrome chronic [facility] Work Phone: Evaluation note* Diagnosis Essential hypertension- Primary Unspecified essential hypertension Hypothyroidism, unspecified type Seizure disorder (HCC) Unspecified epilepsy without mention of intractable epilepsy Intellectual disability Unspecified intellectual disabilities [facility] this encounter [facility] Diagnosis Establishing care with new doctor, encounter for- Primary Other reasons for seeking consultation Aortic Root Dilatation Thoracic aortic ectasia Marfan's syndrome Mental retardation Unspecified intellectual disabilities Seizure Disorder Unspecified epilepsy without mention of intractable epilepsy Bladder atony Atony of bladder Seizure Disorder- Primary Unspecified epilepsy without mention of intractable epilepsy Pedal edema Edema Essential hypertension Unspecified essential hypertension Aortic Root Dilatation Thoracic aortic ectasia Bladder atony Atony of bladder Mental retardation associated with Fragile X syndrome- Primary Unspecified intellectual disabilities Marfan's syndrome Aortic Root Dilatation Thoracic aortic ectasia Essential hypertension Unspecified essential hypertension Hypothyroidism, unspecified type [facility] Establishing care with new doctor, encounter for- Primary Other reasons for seeking consultation Aortic Root Dilatation Thoracic aortic ectasia Marfan's syndrome Mental retardation Unspecified intellectual disabilities Seizure Disorder Unspecified epilepsy without mention of intractable epilepsy Bladder atony Atony of bladder Seizure Disorder- Primary Unspecified epilepsy without mention of intractable epilepsy Pedal edema Edema Essential hypertension Unspecified essential hypertension Aortic Root Dilatation Thoracic aortic ectasia Bladder atony Atony of bladder Hypothyroidism, unspecified type [facility] Establishing care with new doctor, encounter for- Primary Other reasons for seeking consultation Aortic Root Dilatation Thoracic aortic ectasia Marfan's syndrome Mental retardation Unspecified intellectual disabilities Seizure Disorder Unspecified epilepsy without mention of intractable epilepsy Bladder atony Atony of bladder Seizure Disorder- Primary Unspecified epilepsy without mention of intractable epilepsy Pedal edema Edema Essential hypertension Unspecified essential hypertension Aortic Root Dilatation Thoracic aortic ectasia Bladder atony Atony of bladder Onychomycosis- Primary Dermatophytosis of nail Nail disorder, unspecified [facility] Establishing care with new doctor, encounter for- Primary Other reasons for seeking consultation Aortic Root Dilatation Thoracic aortic ectasia Marfan's syndrome (HCC) Marfan's syndrome Mental retardation Unspecified intellectual disabilities Seizure Disorder Unspecified epilepsy without mention of intractable epilepsy Bladder atony Atony of bladder Seizure Disorder- Primary Unspecified epilepsy without mention of intractable epilepsy Pedal edema Edema Essential hypertension Unspecified essential hypertension Aortic Root Dilatation Thoracic aortic ectasia Bladder atony Atony of bladder Seizure Disorder Unspecified epilepsy without mention of intractable epilepsy [facility] Establishing care with new doctor, encounter for- Primary Other reasons for seeking consultation Aortic Root Dilatation Thoracic aortic ectasia Marfan's syndrome (HCC) Marfan's syndrome Mental retardation Unspecified intellectual disabilities Seizure Disorder Unspecified epilepsy without mention of intractable epilepsy Bladder atony Atony of bladder Seizure Disorder- Primary Unspecified epilepsy without mention of intractable epilepsy Pedal edema Edema Essential hypertension Unspecified essential hypertension Aortic Root Dilatation Thoracic aortic ectasia Bladder atony Atony of bladder Annual physical exam- Primary Routine general medical examination at a health care facility Vitamin D deficiency Unspecified vitamin D deficiency Fatigue, unspecified type Weight gain Abnormal weight gain Seizure disorder (HCC) Unspecified epilepsy without mention of intractable epilepsy Marfan syndrome (HCC) Marfan's syndrome Hypothyroidism, unspecified type Thoracic aortic aneurysm without rupture, unspecified part documented in this encounter [facility] Summary Purpose Family History No Family History Records Found Relationship Condition Age at Onset Recorded Date/T jose maria mother Hypertension Unknown Marfan's syndrome Unknown uncle Marfan's syndrome Unknown Rupture of aorta Unknown Relationship Condition Age at Onset Recorded Date/T jose maria mother Hypertension Unknown Marfan's syndrome Unknown uncle Marfan's syndrome Unknown Rupture of aorta Unknown father Coronary artery disease Unknown Cardiac disease Unknown Hypertension Unknown Advance Directives No Advanced Directives Records Found Advance Directive Response Recorded Date/ Time Living Will No April 25 0 1:42pm Power of Oceanographer Assistant No April 25 020 1:42pm Advance Directive Response Recorded Date/ Time Living Will No December 31, 2022 4:16pm Power of Oceanographer Assistant Yes December 31 4:16pm Name of Medical Power of Oceanographer Assistant ASHLEY thompson December 31, 2022 4:16pm Advance Directive Response Recorded Date/ Time Name of Medical Power of Oceanographer Assistant jay POA December 31, 2022 4:16pm Living Will No December 31, 2022 7:58pm Power of Oceanographer Assistant No December 31 7:58pm Advance Directive Response Recorded Date/ Time Living Will No December 31, 2022 7:58pm Power of Oceanographer Assistant No December 31 7:58pm Chief Complaint and Reason for Visit Chief Complaint 9 m fu Reason for Visit Dilatation of aortic root due to Marfan syndrome Essential hypertension Chief Complaint 9 m fu MARFAN'S SYNDROME W/ AORTIC DILATION Reason for Visit Dilatation of aortic root due to Marfan syndrome Essential hypertension Chief Complaint MARFAN'S SYNDROME W/ AORTIC DILATION Chief Complaint ENCEPHALOPATHY, UTI Reason for Visit Complicated UTI (uri nary tract infection) Chief Complaint ENCEPHALOPATHY, UTI ENCEPHALOPATHY, UTI ENCEPHALOPATHY, UTI ENCEPHALOPATHY, UTI ENCEPHALOPATHY, UTI ENCEPHALOPATHY, UTI ENCEPHALOPATHY, UTI ENCEPHALOPATHY, UTI Reason for Visit Bacteremia Complicated UTI (urinary tract infection) Hypokalemia Lens disorder Metabolic encephalopathy Chief Complaint ENCEPHALOPATHY, UTI ENCEPHALOPATHY, UTI ENCEPHALOPATHY, UTI ENCEPHALOPATHY, UTI ENCEPHALOPATHY, UTI ENCEPHALOPATHY, UTI ENCEPHALOPATHY, UTI ENCEPHALOPATHY, UTI Reason for Visit Lens disorder Complicated UTI (urinary tract infection) Metabolic encephalopathy Chief Complaint OVERDUE FOR OV (LAST SEEN 01/02) Marfan syndrome with aortic dilation Reason for Visit Dilatation of aortic root due to Marfan syndrome Essential hypertension Marfan syndrome Reason for Referral Specialty Diagnoses / Procedures Referred By Bobby t Referred To Contact Diagnoses Seizure disorder (HCC) Saranya Casper MD [address] [place] [address] Referral ID Status Reason Start Date Expiration Date Visits Re quested Visits Authorized [id number] Closed 1 1 Specialty Diagnoses / Procedures Referred By Bobby russo Referred To Contact Podiatry Diagnoses Onychomycosis Nail disorder, unspecified Procedures CONSULT TO PODIATRY Saranya Casper MD [address] [place] [address] Referral ID Status Reason Start Date Expiration Date Visits Requested Visits Authorized [id number] Authorized PCP Requested Referral 09/29/2024 09/29/2025 1 1 Additional Source Comments (unrecognized sect ion and content) No Status Records FoundNo Status Records FoundNo Status Records FoundNo Status Records Found INFORMATION SOURCE (unrecogn ized section and content) DATE CREATED AUTHOR 03/04/2018 [facility] DATE CREATED AUTHOR AUTHOR'S ORGANIZ ATION 03/04/2018 [facility] DATE CREATED AUTHOR AUTHOR'S ORGANIZ ATION 03/16/2025 [facility] DATE CREATED AUTHOR AUTHOR'S ORGANIZ ATION 07/06/2025 [facility] Source Comments (unrecognize d section and content) In the event this informatio n is protected by the Federal Confidentiality of Alcohol and Drug Abuse Patient Records regulations: The Federal rules restrict any use of the information to criminally investigate or prosecute any alcohol or drug abuse patient.[facility] the event this information is protected by the Federal Confidentiality of Alcohol and Drug Abuse Patient Records regulations: The Federal rules restrict any use of the information to criminally investigate or prosecute any alcohol or drug abuse patient.[facility] the event this information is protected by the Federal Confidentiality of Alcohol and Drug Abuse Patient Records regulations: The Federal rules restrict any use of the information to criminally investigate or prosecute any alcohol or drug abuse patient.[facility] the event this information is protected by the Federal Confidentiality of Alcohol and Drug Abuse Patient Records regulations: The Federal rules restrict any use of the information to criminally investigate or prosecute any alcohol or drug abuse patient.[facility] the event this information is protected by the Federal Confidentiality of Alcohol and Drug Abuse Patient Records regulations: The Federal rules restrict any use of the information to criminally investigate or prosecute any alcohol or drug abuse patient.[facility] the event this information is protected by the Federal Confidentiality of Alcohol and Drug Abuse Patient Records regulations: The Federal rules restrict any use of the information to criminally investigate or prosecute any alcohol or drug abuse patient.[facility] the event this information is protected by the Federal Confidentiality of Alcohol and Drug Abuse Patient Records regulations: The Federal rules restrict any use of the information to criminally investigate or prosecute any alcohol or drug abuse patient.[facility] the event this information is protected by the Federal Confidentiality of Alcohol and Drug Abuse Patient Records regulations: The Federal rules restrict any use of the information to criminally investigate or prosecute any alcohol or drug abuse patient.[facility] the event this information is protected by the Federal Confidentiality of Alcohol and Drug Abuse Patient Records regulations: The Federal rules restrict any use of the information to criminally investigate or prosecute any alcohol or drug abuse patient.[facility] the event this information is protected by the Federal Confidentiality of Alcohol and Drug Abuse Patient Records regulations: The Federal rules restrict any use of the information to criminally investigate or prosecute any alcohol or drug abuse patient.[facility] the event this information is protected by the Federal Confidentiality of Alcohol and Drug Abuse Patient Records regulations: The Federal rules restrict any use of the information to criminally investigate or prosecute any alcohol or drug abuse patient.[facility] the event this information is protected by the Federal Confidentiality of Alcohol and Drug Abuse Patient Records regulations: The Federal rules restrict any use of the information to criminally investigate or prosecute any alcohol or drug abuse patient.[facility] the event this information is protected by the Federal Confidentiality of Alcohol and Drug Abuse Patient Records regulations: The Federal rules restrict any use of the information to criminally investigate or prosecute any alcohol or drug abuse patient.[facility] the event this information is protected by the Federal Confidentiality of Alcohol and Drug Abuse Patient Records regulations: The Federal rules restrict any use of the information to criminally investigate or prosecute any alcohol or drug abuse patient.[facility] the event this information is protected by the Federal Confidentiality of Alcohol and Drug Abuse Patient Records regulations: The Federal rules restrict any use of the information to criminally investigate or prosecute any alcohol or drug abuse patient.[facility] the event this information is protected by the Federal Confidentiality of Alcohol and Drug Abuse Patient Records regulations: The Federal rules restrict any use of the information to criminally investigate or prosecute any alcohol or drug abuse patient.[facility] HospitalIn the event this information is protected by the Federal Confidentiality of Alcohol and Drug Abuse Patient Records regulations: The Federal rules restrict any use of the information to criminally investigate or prosecute any alcohol or drug abuse patient.[facility] the event this information is protected by the Federal Confidentiality of Alcohol and Drug Abuse Patient Records regulations: The Federal rules restrict any use of the information to criminally investigate or prosecute any alcohol or drug abuse patient.[facility] the event this information is protected by the Federal Confidentiality of Alcohol and Drug Abuse Patient Records regulations: The Federal rules restrict any use of the information to criminally investigate or prosecute any alcohol or drug abuse patient.[facility] HospitalIn the event this information is protected by the Federal Confidentiality of Alcohol and Drug Abuse Patient Records regulations: The Federal rules restrict any use of the information to criminally investigate or prosecute any alcohol or drug abuse patient.[facility] HospitalIn the event this information is protected by the Federal Confidentiality of Alcohol and Drug Abuse Patient Records regulations: The Federal rules restrict any use of the information to criminally investigate or prosecute any alcohol or drug abuse patient.[facility] HospitalIn the event this information is protected by the Federal Confidentiality of Alcohol and Drug Abuse Patient Records regulations: The Federal rules restrict any use of the information to criminally investigate or prosecute any alcohol or drug abuse patient.[facility] HospitalIn the event this information is protected by the Federal Confidentiality of Alcohol and Drug Abuse Patient Records regulations: The Federal rules restrict any use of the information to criminally investigate or prosecute any alcohol or drug abuse patient.[facility] HospitalIn the event this information is protected by the Federal Confidentiality of Alcohol and Drug Abuse Patient Records regulations: The Federal rules restrict any use of the information to criminally investigate or prosecute any alcohol or drug abuse patient.[facility] HospitalIn the event this information is protected by the Federal Confidentiality of Alcohol and Drug Abuse Patient Records regulations: The Federal rules restrict any use of the information to criminally investigate or prosecute any alcohol or drug abuse patient.[facility] Hospital[facility] the event this information is protected by the Federal Confidentiality of Alcohol and Drug Abuse Patient Records regulations: The Federal rules restrict any use of the information to criminally investigate or prosecute any alcohol or drug abuse patient.[facility] HospitalIn the event this information is protected by the Federal Confidentiality of Alcohol and Drug Abuse Patient Records regulations: The Federal rules restrict any use of the information to criminally investigate or prosecute any alcohol or drug abuse patient.[facility] HospitalIn the event this information is protected by the Federal Confidentiality of Alcohol and Drug Abuse Patient Records regulations: The Federal rules restrict any use of the information to criminally investigate or prosecute any alcohol or drug abuse patient.[facility] HospitalIn the event this information is protected by the Federal Confidentiality of Alcohol and Drug Abuse Patient Records regulations: The Federal rules restrict any use of the information to criminally investigate or prosecute any alcohol or drug abuse patient.[facility] HospitalIn the event this information is protected by the Federal Confidentiality of Alcohol and Drug Abuse Patient Records regulations: The Federal rules restrict any use of the information to criminally investigate or prosecute any alcohol or drug abuse patient.[facility] HospitalIn the event this information is protected by the Federal Confidentiality of Alcohol and Drug Abuse Patient Records regulations: The Federal rules restrict any use of the information to criminally investigate or prosecute any alcohol or drug abuse patient.[facility] HospitalIn the event this information is protected by the Federal Confidentiality of Alcohol and Drug Abuse Patient Records regulations: The Federal rules restrict any use of the information to criminally investigate or prosecute any alcohol or drug abuse patient.[facility] HospitalIn the event this information is protected by the Federal Confidentiality of Alcohol and Drug Abuse Patient Records regulations: The Federal rules restrict any use of the information to criminally investigate or prosecute any alcohol or drug abuse patient.[facility] Reason for Visit (unrecogniz ed section and content) Reason Comments Established Patient 6 month follow up Reason Comments Results Reason Onset Date Comments Refill Request 01/05/2022 Reason Comments Refill Request Reason Onset Date Comments Refill Request 02/12/2022 Reason Comments [facility] update -No Action Needed Reason Onset Date Comments Refill Request 09/15/2022 Reason Comments Orders Reason Comments Appointment Reason Comments Patient Update Reason Comments Hospital F/U [facility] d/c february 04 bladd er infection Reason Comments Certificate of Medical Necessity Reason Comments Recheck 6 week follow up Reason Comments fax lab orders to [facility] Reason Onset Date Comments Refill Request 06/03/2023 Reason Comments Re-fax CMN form- [facility] Reason Comments Insurance Inquiry Referral Information Reason Comments Recheck Follow up blood pres sure Reason Onset Date Comments Refill Request 03/24/2024 Reason Comments Follow Up Reason Comments statement of expert evaluation Reason Comments Medication Question Reason Onset Date Comments Refill Request 06/28/2024 Reason Comments Referral Request Reason Comments Patient Request Reason Comments Pharmacy change request [facility] Reason Comments Physical Care Teams (unrecognized sec tion and content) Sand Blaster Relationship Specialty Start Date End Date Saranya Casper MD [address] [place], [place] [id number] PCP - General Internal Medicine 02/25/15 Saranya Casper MD [address] [place], [place] [id number] Internal Medicine 02/25/15 Sand Blaster Relationship Specialty Start Date End Date Saranya Casper MD [address] [place] [address] PCP - General Internal Medicine 02/25/15 Saranya Casper MD [address] [place] [address] Internal Medicine 02/25/15 Sand Blaster Relationship Specialty Start Date End Date Saranya Casper MD [address] [place] [address] PCP - General Internal Medicine 02/25/15 Saranya Casper MD [address] [place] [address] Internal Medicine 02/25/15 Sand Blaster Relationship Specialty Start Date End Date Saranya Casper MD [address] [place] [address] PCP - General Internal Medicine 02/25/15 Saranya Casper MD [address] [place] [address] Internal Medicine 02/25/15 Sand Blaster Relationship Specialty Start Date End Date Saranya Casper MD [address] [place] [address] PCP - General Internal Medicine 02/25/15 Saranya Casper MD [address] [place] [address] Internal Medicine 02/25/15 Sand Blaster Relationship Specialty Start Date End Date Saranya Casper MD [address] [place] [address] PCP - General Internal Medicine 02/25/15 Saranya Casper MD [address] [place] [address] Internal Medicine 02/25/15 Team Status: Active Member Role Status Dates Dr. Saranya Casper MD Family Provider Active Dr. Saranya Casper MD Primary Care Provider Active Team Status: Active Member Role Status Dates Dr. Saranya Casper MD Primary Care Provider Active Dr. Jorge L Ahmadi DO Referring Provider, Emergency Provider Active Dr. Ivonne Tavares MD Admit Provider, Attending Prov ider Active Team Status: Active Member Role Status Dates Dr. Saranya Capser MD Primary Care Provider Active Dr. Jorge L Ahmadi DO Emergency Provider Active Dr. Ivonne Tavares MD Admit Provider, Other Provider Active Dr. Mario Chaidez DO Attending Provider, Other Provid er Active Team Status: Active Member Role Status Dates Dr. Saranya Casper MD Primary Care Provider Active Dr. Jorge L Ahmadi DO Referring Provider, Emergency Provider Active Dr. Ivonne Tavares MD Admit Provider, Other Provider Active Dr. Mario Chaidez DO Attending Provider, Other Provid er Active Team Status: Active Member Role Status Dates Dr. Saranya Casper MD Primary Care Provider Active Dr. Jorge L Ahmadi DO Referring Provider, Emergency Provider Active Dr. Ivonne Tavares MD Admit Provider, Other Provider Active Dr. Carri Mina MD Attending Provider, Other Provid er Active Dr. Mario Chaidez DO Other Provider Active Dr. Albino Allen MD Other Provider Active Team Status: Inactive Member Role Status Dates Dr. Saranya Casper MD Primary Care Provider Active Dr. Jorge L Ahmadi DO Referring Provider, Emergency Provider Active Dr. Ivonne Tavares MD Admit Provider, Other Provider Active Dr. Carri Mina MD Attending Provider Active Dr. Mario Chaidez DO Other Provider Active Dr. Albino Allen MD Other Provider Active Sand Blaster Relationship Specialty Start Date End Date Saranya Casper MD [address] [place], [place] [id number] PCP - General Internal Medicine 02/25/15 Saranya Casper MD [address] [place], [place] [id number] Internal Medicine 02/25/15 Team Status: Active Member Role Status Dates Dr. Saranya Casper MD Primary Care Provider Active Dr. Jorge L Ahmadi DO Emergency Provider Active Dr. Ivonne Tavares MD Admit Provider, Other Provider Active Dr. Carri Mina MD Attending Provider, Other Provid er Active Dr. Mario Chaidez , DO Other Provider Active Dr. Albino Allen MD Other Provider Active Sand Blaster Relationship Specialty Start Date End Date Saranya Casper MD [address] [facility] [place] [address] PCP - General Internal Medicine 02/25/15 Saranya Casper MD [address] [place] [address] Internal Medicine 02/25/15 Sand Blaster Relationship Specialty Start Date End Date Saranya Casper MD [address] [place] [address] PCP - General Internal Medicine 02/25/15 Saranya Casper MD [address] [place] [address] Internal Medicine 02/25/15 Sand Blaster Relationship Specialty Start Date End Date Saranya Casper MD [address] [place] [address] PCP - General Internal Medicine 02/25/15 Saranya Casper MD [address] [place] [address] Internal Medicine 02/25/15 Sand Blaster Relationship Specialty Start Date End Date Saranya Casper MD [address] [place] [address] PCP - General Internal Medicine 02/25/15 Saranya Casper MD [address] [place] [address] Internal Medicine 02/25/15 Sand Blaster Relationship Specialty Start Date End Date Saranya Casper MD [address] [place] [address] PCP - General Internal Medicine 02/25/15 Saranya Casper MD [address] [place] [address] Internal Medicine 02/25/15 Sand Blaster Relationship Specialty Start Date End Date Saranya Casper MD [address] [place] [address] PCP - General Internal Medicine 02/25/15 Saranya Casper MD [address] [place] [address] Internal Medicine 02/25/15 Sand Blaster Relationship Specialty Start Date End Date Saranya Casper MD [address] [place] [address] PCP - General Internal Medicine 02/25/15 Saranya Casper MD [address] [place] [address] Internal Medicine 02/25/15 Team Status: Inactive Member Role Status Dates Dr. Anup Carranza MD Primary Care Provider, Referring Provider Active HARI Aragon Attending Provider Active Team Status: Inactive Member Role Status Dates HARI Aragon Attending Provider, Referr ing Provider Active Dr. Saranya Casper MD Primary Care Provider Active Sand Blaster Relationship Specialty Start Date End Date Edilberto Blankenship MD [address] [place], [place] [id number] Surgeon Cardiac Surg 02/02/24 Sand Blaster Relationship Specialty Start Date End Date Saranya Casper MD [address] [place] [address] PCP - General Internal Medicine 02/29/24 Edilberto Blankenship MD [address] [place] [address] Surgeon Cardiac Surg 02/02/24 Sand Blaster Relationship Specialty Start Date End Date Anup Carranza MD [address] [address] PCP - General Neurology 02/17/24 02/28/24 Saranya Casper MD [address] [place] [address] PCP - General Internal Medicine 02/29/24 Edilberto Blankenship MD [address] [place] [address] Surgeon Cardiac Surg 02/02/24 Sand Blaster Relationship Specialty Start Date End Date Saranya Casper MD [address] [place] [address] PCP - General Internal Medicine 02/29/24 Edilberto Blankenship MD [address] [place] [address] Surgeon Cardiac Surg 02/02/24 Sand Blaster Relationship Specialty Start Date End Date Saranya Casper MD [address] [place] [address] PCP - General Internal Medicine 02/29/24 Edilberto Blankenship MD [address] [place] [address] Surgeon Cardiac Surg 02/02/24 Sand Blaster Relationship Specialty Start Date End Date Saranya Casper MD [address] [place] [address] PCP - General Internal Medicine 02/29/24 Edilberto Blankenship MD [address] [place] [address] Surgeon Cardiac Surg 02/02/24 Sand Blaster Relationship Specialty Start Date End Date Saranya Casper MD [address] [place] [address] PCP - General Internal Medicine 02/29/24 Edilberto Blankenship MD [address] [place] [address] Surgeon Cardiac Surg 02/02/24 Sand Blaster Relationship Specialty Start Date End Date Saranya Casper MD [address] [place] [address] PCP - General Internal Medicine 02/29/24 Edilberto Blankenship MD [address] [place] [address] Surgeon Cardiac Surg 02/02/24 Sand Blaster Relationship Specialty Start Date End Date Saranya Casper MD [address] [place] [address] PCP - General Internal Medicine 02/29/24 Edilberto Blankenship MD [address] [place] [address] Surgeon Cardiac Surg 02/02/24 Sue Benton PA-C [address] [place] [address] Sales Consulting Director Family Medicine 08/20/24 Ashley Noyola APRN.DRY CLEANING ATTENDANT [address] [place] [address] Sales Consulting Director Internal Medicine 08/20/24 Phyllis Khalil PA-C [address] [place] [address] Sales Consulting Director Family Medicine 08/20/24 Sand Blaster Relationship Specialty Start Date End Date Saranya Casper MD [address] [place] [address] PCP - General Internal Medicine 02/29/24 Edilberto Blankenship MD [address] [place] [address] Surgeon Cardiac Surg 02/02/24 Ashley Noyola APRN.DRY CLEANING ATTENDANT [address] [place] [address] Sales Consulting Director Internal Medicine 08/20/24 Sand Blaster Relationship Specialty Start Date End Date Saranya Casper MD [address] [place] [address] PCP - General Internal Medicine 02/29/24 Edilberto Blankenship MD [address] [place] [address] Surgeon Cardiac Surg 02/02/24 Ashley Noyola APRN.DRY CLEANING ATTENDANT [address] [place] [address] [facility] Internal Medicine 08/20/24 Sand Blaster Relationship Specialty Start Date End Date Saranya Casper MD [address] [place], [place] [address] PCP - General Internal Medicine 02/29/24 Edilberto Blankenship MD [address] [place], [place] [id number] Surgeon Cardiac Surg 02/02/24 Ashley Noyola APRN.CNP [address] [place], [place] [id number] [facility] 08/20/24 Goals (unrecognized section and content) Goals may be documented in a n alternate sectionGoals may be documented in an alternate sectionGoals may be documented in an alternate sectionGoals may be documented in an alternate sectionGoals may be documented in an alternate section FOR RECORDS PERTAINING TO PATIENTS WHO ARE OR HAVE BEEN ENROLLED IN A CHEMICAL DEPENDENCY/SUBSTANCEABUSE PROGRAM, SOME INFORMATION MAY BE OMITTED. This clinical summary was aggregated from multiple sources. Caution should be exercised in using it in the provision of clinical care. This summary normalizes information from multiple sources, and as a consequence, information in this document may materially change the coding, format and clinical context of patient data. In addition, data may be omitted in some cases. CLINICAL DECISIONS SHOULD BE BASED ON THE PRIMARY CLINICAL RECORDS. [facility]. provides no warranty or guarantee of the accuracy or completeness of information in this document.
--- NOTE | 2025-09-04 16:04 | CM.ED ---
Social work Reason for referral: APS referral Referral source: HRO Jovan and guest service supervisor Meenakshi MELTON approached by people named above to inform SW of patient's living conditions. Per Meenakshi, EMS was going to call APS to make a report. SW called Mehrdad at [facility] (ph: [phone]) and left a voicemail with report as well. SW stated not knowing at this time whether or not patient would be admitted to acute. SW to provide handoff via email to Margie MAYORGA who works 09/05. SW to remain available to support as needed. Tamica Menezes, ACTUARIAL ASSISTANT, CREDIT COMPLIANCE OFFICER
[2025-09-04] MEDS: Ceftriaxone 2 GM in 0.9% Normal Saline (50mL MB+) 50 ML IV (16:05)
[2025-09-04 16:13] LABS: AST(SGOT) 21 U/L (<=37); Alanine Aminotransfer ALT/SGPT 12 U/L (<=46); Albumin, Serum 2.9 g/dL (3.5-5.0); Alkaline Phosphatase 63 U/L (40-129); Anion Gap 7 (7-18); BUN 6 mg/dL (4-19); BUN/Creat Ratio 11.3 RATIO (10-20); Calcium,Total 7.7 mg/dL (7.6-11.0); Carbon Dioxide 23.3 mmol/L (20.0-29.0); Chloride 108 mmol/L (96-106); Estimated Creatinine Clearance 164.48 ml/min (50-250); Globulin 2.8 g/dL (2.2-4.2); Glucose 75 mg/dL (70-99); Potassium 3.9 mmol/L (3.5-5.1)
[2025-09-04 16:29] LABS: Ammonia 41.6 umol/L (16-60)
[2025-09-04 16:33] LABS: Valproic Acid (Depakene) Level 67 ug/mL (50-100)
[2025-09-04] MEDS: 0.9% Normal Saline (1000mL) 1,000 ML 999 ML IV ×3 (16:42→19:35)
--- NOTE | 2025-09-04 17:31 | PCM.HP.STD ---
HPI - General General Date of Admission: 09/04/25 Date of Service: 09/04/25 Chief Complaint: Less responsive/interactive, decreased intake. HPI Narrative The patient is a 49 y/o M w/ PMHx: Chronic normocytic anemia, Marfan Syndrome w/ associated dilatation of the aortic root, Hypothyroidism, Anxiety, MRDD w/ seizure disorder w/ baseline intermittent nonresponsive times who presents to [facility] ED on 09/04/2025 with history of inability to get patient to respond at all per his mother prompting EMS call and transition to the ED for evaluation. Per parent baseline will typically sit in the chair and ambulate some but is very minimally conversive however over the last several days he has not been moving as much nor is he been eating or drinking nor making any conversation. Family denies any recent URI type symptoms or any nausea, emesis or diarrhea. They state that he has had no fevers. There is been no one ill in the home. From EMS report there was some concern about welfare and Adult Protective Services was contacted. They noted that the patient was extremely disheveled and soiled upon their arrival and it was unclear when he last bathed. Upon ED arrival patient was moving but still not verbally interactive. Workup in the ED included T97.6, heart rate 74, BP 88/68, respiratory rate 16, 99% on room air-->repeat vitals BP 104/66, heart rate 65, respiratory rate 11, 97.4 temperature, 99% on room air however unfortunately BP dropping again with most recent repeat vitals T97.3 core, heart rate 67, BP 78/46 with a MAP of 56, respiratory rate 14, 97% on room air,, CBC with WC 4.9, hemoglobin 12.2, MCV 92.8, platelet 322 with ANC 1.9, coags with PT 19.8, PTT 41.8, INR 1.7, CMP with chloride 108, BUN/creatinine 6/0.55, GFR 122, hepatic profile not marked appearing, ammonia 41.6, lactic acid 1.0, urinalysis with cloudy urine, specific gravity 1.010, protein 15, occult blood 10, positive nitrite, negative leukocyte esterase with no marked urine WBCs were urine RBCs however noted 3+ urine bacteria, valproic acid level 67, CT brain with no acute intracranial abnormality, CT A/P with no acute intra-abdominal findings with a probable hepatic and right renal cyst as well as cholelithiasis but no evidence of cholecystitis in addition to moderate colon stool burden suggesting constipation, chest x-ray with no acute cardiopulmonary findings, blood culture x 2 pending per ED, urine culture pending per ED, EKG with sinus rhythm with no acute evidence of ischemia, rapid SARS COVID/influenza/RSV negative. In the ED patient administered Rocephin 2 g IV x 1 as well as 1.5 L normal saline. ED currently ordered an additional 1L NS. [facility] Medical History Lens disorder Anxiety Hypothyroidism Essential hypertension Dilatation of aortic root due to Marfan syndrome Marfan syndrome Seizure disorder Home Medications ?Medication ?Instructions ?Recorded ?Last Taken ?Type clonazepam 0.5 mg tablet 0.5 mg PO BID ANXIETY 03/22/19 Unknown History levothyroxine 75 mcg tablet 75 mcg PO DAILY THYROID 03/22/19 Unknown History Divalproex Sodium [Divalproex 1,500 mg PO QHS SEIZURES 04/24/20 Unknown History Sodium Er] multivitamin with minerals 1 tab PO DAILY SUPPLEMENT 04/24/20 Unknown History phenobarbital 64.8 mg tablet 64.8 mg PO DAILY SEIZURES 04/24/20 Unknown History potassium chloride 20 mEq 20 meq PO DAILY Check with primary 12/31/22 Unknown History tablet,extended release(part/cryst) doctor lactulose 20 gram/30 mL oral 20 g (30 mL) PO TID 30 days #2,700 01/06/23 Unknown Rx solution mL Allergy/AdvReac Type Severity Reaction Status Date / Time No Known Allergies Allergy Verified 09/04/25 13:57 Family History Mother Hypertension Marfans syndrome Uncle Marfans syndrome Ruptured, aorta Uncle Marfans syndrome Ruptured, aorta Father CAD (coronary artery disease) Heart disease Hypertension Surgical History dislocated lenses, removed hamstring lengthening bilateral Social History household members: family Smoking Status: Never smoker alcohol intake: never substance use type: does not use caffeine: Yes Type: carbonated beverages Number of servings: 1 and coffee Number of servings: 2 ROS Review of Systems ROS Unobtainable: due to encephalopathy and due to mental condition Patient's Goals Of Care . What would you like to achieve or improve as a result of your hospital stay?: NA-unable to give input given MRDD status/encephalopathy. Vital Signs Vital Signs Vital Signs: 09/04/25 13:50 09/04/25 13:56 09/04/25 14:36 Temperature 97.6 F L 97.6 F L Temperature Source Axillary Axillary Pulse Rate 74 71 Respiratory Rate 16 16 Blood Pressure 88/68 L 88/68 L Blood Pressure Mean 74 74 Pulse Ox 99 100 98 Oxygen Delivery Method Room Air Room Air Room Air 09/04/25 14:56 09/04/25 15:00 09/04/25 15:30 Temperature 96.9 F L 96.9 F L 96.9 F L Temperature Source Core Core Core Pulse Rate 67 70 68 Respiratory Rate 15 20 H 12 Blood Pressure 72/40 L 74/43 L 95/54 L Blood Pressure Mean 50 53 67 Pulse Ox 98 17 100 Oxygen Delivery Method Room Air Room Air Room Air 09/04/25 15:32 09/04/25 15:35 09/04/25 15:40 Temperature 96.9 F L 96.9 F L 96.9 F L Temperature Source Core Core Core Pulse Rate 68 71 74 Respiratory Rate 13 11 L Blood Pressure 91/56 L 86/48 L Blood Pressure Mean 68 60 Pulse Ox 98 99 99 Oxygen Delivery Method 09/04/25 15:45 09/04/25 15:45 09/04/25 15:50 Temperature 97.2 F L 97.0 F L 97.1 F L Temperature Source Core Core Core Pulse Rate 74 76 74 Respiratory Rate 17 14 16 Blood Pressure 86/48 L 74/62 L 104/67 Blood Pressure Mean 60 69 79 Pulse Ox 99 99 99 Oxygen Delivery Method Room Air 09/04/25 15:55 09/04/25 16:00 09/04/25 16:00 Temperature 97.2 F L 97.4 F L 97.2 F L Temperature Source Core Core Core Pulse Rate 73 65 75 Respiratory Rate 12 11 L 15 Blood Pressure 96/60 104/66 85/58 L Blood Pressure Mean 72 78 68 Pulse Ox 99 99 98 Oxygen Delivery Method Room Air 09/04/25 16:05 09/04/25 16:10 09/04/25 17:00 Temperature 97.3 F L 97.4 F L 97.3 F L Temperature Source Core Core Core Pulse Rate 69 65 67 Respiratory Rate 14 11 L 14 Blood Pressure 98/55 L 104/66 78/46 L Blood Pressure Mean 69 79 56 Pulse Ox 99 99 97 Oxygen Delivery Method Weight Weight: 156 lb 1.396 oz Body Mass Index (BMI) 20.0 Physical Exam Narrative Physical Examination: General: Not awake or alert currently, encephalopathic, disheveled, usually responsive with occasional yes or no but currently not interactive at all. Skin: Normal color, normal turgor, no icterus, no cyanosis except occasional abrasion, no obvious skin breakdown noted. HEENT: AT/NC, EOM unable to be assessed as patient not following commands, PERRLA although difficult evaluation, dry MM, no carotid bruits or JVD noted, poor dentition. Lungs: Diminished, greater bases, appropriate effort, no evidence of any distress, no rales, ronchi or wheezing. Heart: Currently regular rate with regular rhythm; no gallop, rub audible. Abdomen: Soft, mild grimacing with palpation to suprapubic region otherwise abdomen nontender, no evidence of distention, mildly hyperactive BS, no appreciated HSM. Extremities: No cyanosis, no clubbing, mild bilateral ankle not markedly pitting edema, suspect chronic. Neurological: Not awake or alert currently, encephalopathic, disheveled, usually responsive with occasional yes or no but currently not interactive at all, cognitive function reduced baseline with underlying MRDD but currently not baseline intact; pupils equally reactive to light and accommodation, cranial nerves unable to be assessed well given current status, spontaneously moving extremities, strength severely globally decreased secondary to acute presentation. Psychiatric: Affect appears fatigued, flat, ill-appearing, no acute evidence of depressive or anxiety feelings but does have underlying anxiety per history. Results Lab / Micro Data 09/04/25 15:02 09/04/25 15:02 Labs: Laboratory Results - last 24 hr 09/04/25 15:01: Urine Color Yellow, Urine Clarity Sl. Cloudy, Urine pH 6.5, Ur Specific [place] 1.010, Urine Protein 15 H, Urine Glucose (UA) Normal, Urine Ketones Negative, Urine Occult Blood 10 H, Urine Nitrite Positive H, Urine Bilirubin Negative, Urine Urobilinogen Normal, Ur Leukocyte Esterase Negative, Urine RBC 0-5 SEEN, Urine WBC 0 SEEN, Ur Squamous Epith Cells 0 SEEN, Urine Bacteria 3+, Urine Mucus 0 SEEN 09/04/25 15:02: WBC 4.9, RBC 3.91 L, Hgb 12.2 L, Hct 36.3 L, MCV 92.8, MCH 31.2, MCHC 33.6, RDW Std Deviation 41.9, RDW Coeff of Bel 12.5, Plt Count 322, MPV 12.6 H, Immature Gran % (Auto) 0.200, Neut % (Auto) 38.1 L, Lymph % (Auto) 47.6 H, [place] % (Auto) 12.1 H, Eos % (Auto) 1.2, Baso % (Auto) 0.8, Absolute Neuts (auto) 1.9 L, Absolute Lymphs (auto) 2.33, Nucleated RBC % 0, PT Cancelled, INR Cancelled, APTT Cancelled, Sodium 139, Potassium 3.9, Chloride 108 H, Carbon Dioxide 23.3, Anion Gap 7, BUN 6, Creatinine 0.55 L, Estim Creat Clear Calc 164.48, Est GFR (MDRD) Non-Af 122, BUN/Creatinine Ratio 11.3, Glucose 75, Lactic Acid 1.0, Calcium 7.7, Total Bilirubin 0.22, AST 21, ALT 12, Alkaline Phosphatase 63, Total Protein 5.8 L, Albumin 2.9 L, Globulin 2.8, Albumin/Globulin Ratio 1.0 09/04/25 15:18: PT 19.8 H, INR 1.7, APTT 41.8 H 09/04/25 15:51: Ammonia 41.6, Valproic Acid 67 Micro: Microbiology 09/04/25 15:18 Mucosa - Nose SARS-CoV-2, Influenza & RSV (PCR) - Final Imaging Radiology Impression Chest X-Ray 09/04/25 15:39 IMPRESSION: No active cardiopulmonary disease. Reading Location: [facility]1 Abdomen/Pelvis CT 09/04/25 15:56 IMPRESSION: 1. No acute findings in the abdomen or pelvis. 2. Probable hepatic and right renal cysts. 3. Cholelithiasis with no CT evidence of acute cholecystitis. 4. Moderate colonic stool burden suggesting constipation. Reading Location: [facility] Brain CT 09/04/25 15:56 IMPRESSION: No acute intracranial abnormality. Reading Location: [facility] Assessment & Plan Assessment/Plan (1) UTI (urinary tract infection): (2) Encephalopathy acute: PLAN: Plan The patient is a 49 y/o M w/ PMHx: Chronic normocytic anemia, Marfan Syndrome w/ associated dilatation of the aortic root, Hypothyroidism, Anxiety, MRDD w/ seizure disorder w/ baseline intermittent nonresponsive times who presents to [facility] ED on 09/04/2025 with history of inability to get patient to respond at all per his mother prompting EMS call and transition to the ED for evaluation. #1. Acute Sepsis, Suspect likely Septic Shock but awaiting completion 30 cc/kg IVF bolus started in the ED (Encephalopathy although complicated given intermittent nonresponsive behavior baseline, acute hypotension/MAP less than 65, hypothermic, tachypneic, WBC 4.9 however ANC 1.9 at this time) secondary to Acute Complicated Urinary Tract Infection: Will admit to the ICU given concern for persistent hypotension possibly secondary to hypovolemia/dehydration component but also concern for sepsis as noted, will initiate pressor therapy if necessary if following completion of 30 cc/kg IV fluid MAP remains inappropriate, trend lactic acid per facility protocol, will consult vice president client services per protocol, UA upon ED evaluation remarkable, pending UCx, will continue IVFs, monitor I/Os, continue IV Rocephin based on review of previous cultures w/ transition as able pending sensitivities and speciation. Bld cx x 2 obtained in the ED. PT/OT/case management consulted for discharge planning. #2. MRDD with seizure disorder: Patient baseline reportedly intermittently nonresponsive, currently had been increased per mother report, will continue patient antiepileptic medications, may transition to IV formulation if necessary, complicates presentation, PT/OT/case management consulted for discharge planning. #3. Marfan syndrome with associated dilatation of the aortic root: Most recently noted chest CTA 01/12/2024 with dilatation of the root of the descending thoracic aorta with a transverse dimension of 55.1 mm, encourage continued follow-up and imaging outpatient as previously arranged. #4. Chronic normocytic anemia: Admission hemoglobin 12.2, MCV 92.8, baseline has vacillated but more recently last noted 05/22/2024 hemoglobin 14.4 but prior to this had baseline been 9-10, unclear current baseline, will continue to trend CBC. #5. Seizure disorder: Will continue patient home phenobarbital and divalproex regimen, if necessary will transition to IV formulation. #6. Anxiety: Noted history, on clonazepam low-dose twice daily, given current presentation low threshold to hold however will continue to monitor to assure no withdrawal and given seizure history preference to continue if able. #7. Hypothyroidism: Will continue patient home levothyroxine regimen. #8. DVT prophylaxis: Lovenox. #9. CODE status: Patient caregiver is purportedly his grandmother per discussion with staff/EMS. No living will is in place. DNR-CCA, no intubation. Sepsis Attestation Sepsis Alert: Yes Sepsis Attestation: Agree w/Sepsis Date exam was performed: 09/04/25 Time exam was performed: 15:45 Possible Source of Sepsis: Genitourinary Sepsis Organ Dysfunction Criteria Present: SBP < 90 mmHg or MAP < 65 mmHg and New/Unexplained change in mental status Fluid Resuscitation Fluid resuscitation indicated?: Yes Fluid Resuscitation ordered: 30 ml/kg fluid bolus ordered Amount of fluid ordered: 2,100 Charges/Coding Visit Charges Inpatient E&M: 00718 Init Hosp L3
[2025-09-04 18:46] LABS: Magnesium 1.8 mg/dL (1.5-2.2)
--- NOTE | 2025-09-04 19:24 | NURSING ---
1922- consent obtained for PICC placement over the phone w/ patients mother, Catia, by this RN and Alie Foster RN
[2025-09-04] MEDS: 0.9% Normal Saline (1000mL) 1,000 ML 100 ML IV (21:03)
[2025-09-04] MEDS: CHLORHEXIDINE GLUC 2% CLOTH 1 EACH TOWELETTE TOPICAL (22:00)
--- NOTE | 2025-09-04 22:11 | PCM.HOSP.N ---
Hospitalist Note PICC placed, nrsg noted that pt flipped into AFib/RVR w/HR 130-170; no PMH of AFib documented. Order placed for STAT CXR portable. boring mill operator for metal, who placed PICC, reports that she withdrew the catheter 3cm after noting the rhythm conversion. Explains that she never witnessed a change in the waveforms during the access procedure. Metoprolol 5mg IV q10min x3 in attempt to convert back to SR, ordered per previous discussion with Dr. Holland. 2253-boring mill operator for metal still at bedside, informed of PICC catheter tip at cavoatrial junction and advised withdrawal of catheter by at least 1cm per personal review of portable CXR image. Metoprolol IV dosing not started as of yet. With repositioning of PICC line, atrial stimulation trigger may be eliminated. 0010-PICC withdrawn 2cm, metoprolol 5mg IV x2 given; pt's HR now 110-115, remains in AFib. Last dose metoprolol 5mg IV to be given. No additional imaging needed at this time. [id number] of 1, for hx HTN. Pt remains in AFib w/controlled rate. Cont enoxaparin 40mg SC daily after discussing possibility of, and ruling out, full anticoagulation with Dr. Holland.
--- NOTE | 2025-09-04 22:30 | RAD_ITS ---
PROCEDURE: CHEST 1 VIEW (PORTABLE) 09/04/2025 REASON FOR EXAM: PICC PLACED TECHNIQUE: Frontal view of the chest. COMPARISON: Earlier same day. FINDINGS: Right upper extremity PICC, catheter tip at the superior cavoatrial junction. Clear lungs and pleura. Normal-sized cardiac silhouette. No significant osseous abnormality visualized. RAD/Chest 1 View (Portable) IMPRESSION: Right upper extremity PICC, tip at the superior cavoatrial junction. Reading Location: [id number]
[2025-09-04] MEDS: 0.9% Saline Lock 10 ML Syringe IV (23:08)
--- NOTE | 2025-09-04 23:43 | NURSING ---
[id number] marcia watkins called and said that the PICC line needed pulled back 1 cm. I notified the PICC line nurse, Corrine Headley. she said she will pull it back.
[2025-09-05] VITALS (39 sets, daily range): BP systolic 77–120; BP diastolic 52–88; PULSE 69–125; RESP 12–20; TEMP 36.7–37.6; O2SAT 96–100; BMI 18.7
[2025-09-05] MEDS: 0.9% Saline Lock 10 ML Syringe IV ×2 (00:38→01:56)
[2025-09-05] MEDS: Norepinephrine 8 MG in 0.9% Normal Saline (250mL Bag) 242 ML 9.4 MG CONT INF (01:56)
[2025-09-05 03:08] LABS: Hematocrit 38.3 % (40-54); Hemoglobin 13.0 g/dL (13.0-16.5); Immature Granulocytes Count 0.040 X10^3/uL (0.0-0.0); Mean Corp Hgb Conc 33.9 g/dL (32-36); Mean Corpuscular Volume 92.3 fL (80-94); Mean Platelet Vol. 12.2 fl (6.2-12.0); NRBC Flagged by Analyzer 0 % (0-5); POSITIVE MORPHOLOGY YES; Platelet Count 504 K/mm3 (150-450); RBC Distribution Width CV 12.7 % (11.6-14.6); RBC Distribution Width SD 42.5 fl (35.1-43.9); Red Blood Count 4.15 M/mm3 (4.6-6.2); White Blood Count 10.5 K/mm3 (4.4-11.0)
[2025-09-05 03:09] LABS: Differential Indicated SCAN CRITERIA MET
[2025-09-05 03:29] LABS: AST(SGOT) 19 U/L (<=37); Alanine Aminotransfer ALT/SGPT 13 U/L (<=46); Albumin, Serum 3.0 g/dL (3.5-5.0); Alkaline Phosphatase 67 U/L (40-129); Anion Gap 9 (7-18); BUN 4 mg/dL (4-19); BUN/Creat Ratio 6.2 RATIO (10-20); Calcium,Total 8.1 mg/dL (7.6-11.0); Carbon Dioxide 20.8 mmol/L (20.0-29.0); Chloride 111 mmol/L (96-106); Estimated Creatinine Clearance 143.59 ml/min (50-250); Globulin 3.1 g/dL (2.2-4.2); Glucose 129 mg/dL (70-99); Magnesium 1.7 mg/dL (1.5-2.2); Potassium 4.2 mmol/L (3.5-5.1)
[2025-09-05 03:48] LABS: Differential Comment SCANNED
--- NOTE | 2025-09-05 07:16 | EX.PCM.CONCC ---
Assessment & Plan Assessment/Plan (1) Acute hypotension: (2) UTI (urinary tract infection): PLAN: Plan RECOMMENDATIONS: 1. Continue empiric antimicrobial therapy. 2. Continue gentle IV fluid hydration. 3. Levophed to maintain a mean arterial pressure at or above 65 mmHg. 4. Lovenox for DVT prophylaxis. IMPRESSIONS: 1. Suspected hypovolemic shock While there was initial concern for presenting sepsis, the patient did not technically meet SIRS criteria, nor was there any evidence of endorgan dysfunction, with the exception of the hypotension. I strongly suspect that the patient's hypotension is likely related to hypovolemia in the setting of decreased p.o. intake and poor nutritional status. Recommend gentle IV fluid hydration with continuation of Levophed to maintain mean arterial pressure at or above 65 mmHg. The patient will be continued on antimicrobial therapy to address the underlying urinary tract source of infection. Lactate and renal function are normal. 2. Acute UTI Continue antimicrobial therapy, pending culture data. 3. History of Marfan syndrome with MRDD/seizure disorder/hypothyroidism/anemia Complicates care, management, recovery and prognosis. Continue supportive care as noted above. This note was generated with [employer]iting dictation software. It may contain incorrect words, spelling, and punctuation that were not noted in checking the note before signing. HPI Consult Data Date of Consult: 09/05/25 HPI Narrative Reason for Consultation: Hypotension HPI Narrative: The patient is a 49-year-old male, with a history as outlined below, who presented to the emergency department on September 04 with an apparent decrease in mental status. He has a complex medical history including Marfan syndrome, MRDD with seizure disorder, hypothyroidism and anemia. The patient, according to documentation, does very little from a baseline mobility perspective. He is also apparently minimally conversive at baseline. According to family, the patient has been eating and drinking less over the last several days. There is also concern noted by EMS regarding the state of the home and the care being delivered to the patient by family, with concern that Adult Protective Services needed to be contacted. On presentation to the emergency department, the patient was documented to be afebrile with a presenting blood pressure of 88/68 mmHg. Laboratory evaluation revealed a normal white blood cell count. Chemistry profile was unremarkable. Lactate was normal at 1.0. Phosphorus was low at 2.5. Urinalysis was positive for nitrites and 3+ urine bacteria. CT abdomen/pelvis demonstrated no acute findings. Head CT was unremarkable. The patient was ordered to receive supplemental IV fluid hydration and was initiated on antimicrobial therapy. He was admitted to the medical intensive care unit. Overnight, the patient was initiated on low-dose Levophed to maintain hemodynamic stability. [facility] Medical History Lens disorder Anxiety Hypothyroidism Essential hypertension Dilatation of aortic root due to Marfan syndrome Marfan syndrome Seizure disorder Home Medications ?Medication ?Instructions ?Recorded ?Last Taken ?Type clonazepam 0.5 mg tablet 0.5 mg PO BID ANXIETY 03/22/19 Unknown History levothyroxine 75 mcg tablet 75 mcg PO DAILY THYROID 03/22/19 Unknown History Divalproex Sodium [Divalproex 1,500 mg PO QHS SEIZURES 04/24/20 Unknown History Sodium Er] multivitamin with minerals 1 tab PO DAILY SUPPLEMENT 04/24/20 Unknown History phenobarbital 64.8 mg tablet 64.8 mg PO DAILY SEIZURES 04/24/20 Unknown History potassium chloride 20 mEq 20 meq PO DAILY Check with primary 12/31/22 Unknown History tablet,extended release(part/cryst) doctor lactulose 20 gram/30 mL oral 20 g (30 mL) PO TID 30 days #2,700 01/06/23 Unknown Rx solution mL Allergy/AdvReac Type Severity Reaction Status Date / Time No Known Allergies Allergy Verified 09/04/25 13:57 Family History Mother Hypertension Marfans syndrome Uncle Marfans syndrome Ruptured, aorta Uncle Marfans syndrome Ruptured, aorta Father CAD (coronary artery disease) Heart disease Hypertension Surgical History dislocated lenses, removed hamstring lengthening bilateral Social History household members: family Smoking Status: Never smoker alcohol intake: never substance use type: does not use caffeine: Yes Type: carbonated beverages Number of servings: 1 and coffee Number of servings: 2 ROS Review of Systems ROS Unobtainable: due to mental status Physical Exam Const alert and no apparent distress Constitutional Narrative: Currently nonverbal but does not appear to be in any acute distress. General Appearance: ill appearing Positive for chronically HEENT normocephalic and head/scalp atraumatic Eyes EOMs intact bilaterally and conjunctivae normal Neck supple General: trachea midline Chest inspection of chest normal Resp normal respiratory effort Auscultation: diminished lung sounds; Negative for rales, rhonchi or wheezes Cardio regular rate and regular rhythm GI soft to palpation and non-tender Extremity Extremity Narrative: Contracted extremities. Skin no rashes or lesions noted Neuro CN's II-XII intact bilaterally Psych Mood & Affect: flat affect Lab / Micro Data 09/05/25 03:00 09/05/25 03:00 Labs: Laboratory Results - last 24 hr 09/04/25 15:01: Urine Color Yellow, Urine Clarity Sl. Cloudy, Urine pH 6.5, Ur Specific [place] 1.010, Urine Protein 15 H, Urine Glucose (UA) Normal, Urine Ketones Negative, Urine Occult Blood 10 H, Urine Nitrite Positive H, Urine Bilirubin Negative, Urine Urobilinogen Normal, Ur Leukocyte Esterase Negative, Urine RBC 0-5 SEEN, Urine WBC 0 SEEN, Ur Squamous Epith Cells 0 SEEN, Urine Bacteria 3+, Urine Mucus 0 SEEN 09/04/25 15:02: WBC 4.9, RBC 3.91 L, Hgb 12.2 L, Hct 36.3 L, MCV 92.8, MCH 31.2, MCHC 33.6, RDW Std Deviation 41.9, RDW Coeff of Bel 12.5, Plt Count 322, MPV 12.6 H, Immature Gran % (Auto) 0.200, Neut % (Auto) 38.1 L, Lymph % (Auto) 47.6 H, Real % (Auto) 12.1 H, Eos % (Auto) 1.2, Baso % (Auto) 0.8, Absolute Neuts (auto) 1.9 L, Absolute Lymphs (auto) 2.33, Nucleated RBC % 0, PT Cancelled, INR Cancelled, APTT Cancelled, Sodium 139, Potassium 3.9, Chloride 108 H, Carbon Dioxide 23.3, Anion Gap 7, BUN 6, Creatinine 0.55 L, Estim Creat Clear Calc 164.48, Est GFR (MDRD) Non-Af 122, BUN/Creatinine Ratio 11.3, Glucose 75, Lactic Acid 1.0, Calcium 7.7, Phosphorus 2.5 L, Magnesium 1.8, Total Bilirubin 0.22, AST 21, ALT 12, Alkaline Phosphatase 63, Total Protein 5.8 L, Albumin 2.9 L, Globulin 2.8, Albumin/Globulin Ratio 1.0 09/04/25 15:18: PT 19.8 H, INR 1.7, APTT 41.8 H 09/04/25 15:51: Ammonia 41.6, Valproic Acid 67 09/05/25 03:00: WBC 10.5, RBC 4.15 L, Hgb 13.0, Hct 38.3 L, MCV 92.3, MCH 31.3, MCHC 33.9, RDW Std Deviation 42.5, RDW Coeff of Bel 12.7, Plt Count 504 H, MPV 12.2 H, Immature Gran % (Auto) 0.400, Neut % (Auto) 53.1, Lymph % (Auto) 34.3, Real % (Auto) 11.2 H, Eos % (Auto) 0.5, Baso % (Auto) 0.5, Absolute Neuts (auto) 5.6, Absolute Lymphs (auto) 3.59, Nucleated RBC % 0, Differential Comment SCANNED, Sodium 141, Potassium 4.2, Chloride 111 H, Carbon Dioxide 20.8, Anion Gap 9, BUN 4, Creatinine 0.59 L, Estim Creat Clear Calc 143.59, Est GFR (MDRD) Non-Af 120, BUN/Creatinine Ratio 6.2 L, Glucose 129 H, Calcium 8.1, Phosphorus 2.6 L, Magnesium 1.7, Total Bilirubin 0.19, AST 19, ALT 13, Alkaline Phosphatase 67, Total Protein 6.1, Albumin 3.0 L, Globulin 3.1, Albumin/Globulin Ratio 1.0 Micro: Microbiology 09/04/25 20:55 Nasal Secretion MRSA (PCR) - Final Meth. resistant Staph. aureus 09/04/25 15:18 Mucosa - Nose SARS-CoV-2, Influenza & RSV (PCR) - Final Imaging Radiology Impression Chest X-Ray 09/04/25 15:39 IMPRESSION: No active cardiopulmonary disease. Reading Location: [facility]-1 Abdomen/Pelvis CT 09/04/25 15:56 IMPRESSION: 1. No acute findings in the abdomen or pelvis. 2. Probable hepatic and right renal cysts. 3. Cholelithiasis with no CT evidence of acute cholecystitis. 4. Moderate colonic stool burden suggesting constipation. Reading Location: [facility] Brain CT 09/04/25 15:56 IMPRESSION: No acute intracranial abnormality. Reading Location: [facility] Chest X-Ray 09/04/25 22:30 IMPRESSION: Right upper extremity PICC, tip at the superior cavoatrial junction. Reading Location: [facility] Charges/Coding Visit Charges Inpatient E&M: 56360 Init Hosp L3
--- NOTE | 2025-09-05 07:27 | PCM.PN.HOSP ---
Reason for Visit Chief Complaint: Less responsive/interactive, decreased intake. Subjective Subjective Patient was seen and examined today in ICU, patient is nonverbal-this is probably his baseline. I have discussed care with critical care today. Patient is on low-dose Levophed at this time, pressures are above 100 systolic. Patient's workup in the emergency room indicated a possible urinary tract infection with sepsis/septic shock. Objective Data Objective Data Vital Signs: Vital Signs Temp Pulse Resp BP Pulse Ox O2 Del Method 99.6 F H 84 12 120/83 H 98 Room Air 09/05/25 06:00 09/05/25 06:00 09/05/25 06:00 09/05/25 06:45 09/05/25 06:55 09/05/25 06:55 Oxygen Delivery Method Room Air Weight: 66.3 kg Body Mass Index (BMI) 18.7 Intake & Output: Intake and Output for Last 24 Hours 09/03/25 09/04/25 09/05/25 23:59 23:59 23:59 Intake Total 3550 / 3550 85.23 / 85.23 Output Total 1999 / 1999 1150 / 1150 Balance 1550 / 1550 -1064.77 / -1064.77 Lab / Micro Data 09/05/25 03:00 09/05/25 03:00 Labs: Laboratory Results - last 24 hr 09/04/25 15:01: Urine Color Yellow, Urine Clarity Sl. Cloudy, Urine pH 6.5, Ur Specific [place] 1.010, Urine Protein 15 H, Urine Glucose (UA) Normal, Urine Ketones Negative, Urine Occult Blood 10 H, Urine Nitrite Positive H, Urine Bilirubin Negative, Urine Urobilinogen Normal, Ur Leukocyte Esterase Negative, Urine RBC 0-5 SEEN, Urine WBC 0 SEEN, Ur Squamous Epith Cells 0 SEEN, Urine Bacteria 3+, Urine Mucus 0 SEEN 09/04/25 15:02: WBC 4.9, RBC 3.91 L, Hgb 12.2 L, Hct 36.3 L, MCV 92.8, MCH 31.2, MCHC 33.6, RDW Std Deviation 41.9, RDW Coeff of Bel 12.5, Plt Count 322, MPV 12.6 H, Immature Gran % (Auto) 0.200, Neut % (Auto) 38.1 L, Lymph % (Auto) 47.6 H, Power % (Auto) 12.1 H, Eos % (Auto) 1.2, Baso % (Auto) 0.8, Absolute Neuts (auto) 1.9 L, Absolute Lymphs (auto) 2.33, Nucleated RBC % 0, PT Cancelled, INR Cancelled, APTT Cancelled, Sodium 139, Potassium 3.9, Chloride 108 H, Carbon Dioxide 23.3, Anion Gap 7, BUN 6, Creatinine 0.55 L, Estim Creat Clear Calc 164.48, Est GFR (MDRD) Non-Af 122, BUN/Creatinine Ratio 11.3, Glucose 75, Lactic Acid 1.0, Calcium 7.7, Phosphorus 2.5 L, Magnesium 1.8, Total Bilirubin 0.22, AST 21, ALT 12, Alkaline Phosphatase 63, Total Protein 5.8 L, Albumin 2.9 L, Globulin 2.8, Albumin/Globulin Ratio 1.0 09/04/25 15:18: PT 19.8 H, INR 1.7, APTT 41.8 H 09/04/25 15:51: Ammonia 41.6, Valproic Acid 67 09/05/25 03:00: WBC 10.5, RBC 4.15 L, Hgb 13.0, Hct 38.3 L, MCV 92.3, MCH 31.3, MCHC 33.9, RDW Std Deviation 42.5, RDW Coeff of Bel 12.7, Plt Count 504 H, MPV 12.2 H, Immature Gran % (Auto) 0.400, Neut % (Auto) 53.1, Lymph % (Auto) 34.3, Power % (Auto) 11.2 H, Eos % (Auto) 0.5, Baso % (Auto) 0.5, Absolute Neuts (auto) 5.6, Absolute Lymphs (auto) 3.59, Nucleated RBC % 0, Differential Comment SCANNED, Sodium 141, Potassium 4.2, Chloride 111 H, Carbon Dioxide 20.8, Anion Gap 9, BUN 4, Creatinine 0.59 L, Estim Creat Clear Calc 143.59, Est GFR (MDRD) Non-Af 120, BUN/Creatinine Ratio 6.2 L, Glucose 129 H, Calcium 8.1, Phosphorus 2.6 L, Magnesium 1.7, Total Bilirubin 0.19, AST 19, ALT 13, Alkaline Phosphatase 67, Total Protein 6.1, Albumin 3.0 L, Globulin 3.1, Albumin/Globulin Ratio 1.0 Micro: Microbiology 09/04/25 20:55 Nasal Secretion MRSA (PCR) - Final Meth. resistant Staph. aureus 09/04/25 15:18 Mucosa - Nose SARS-CoV-2, Influenza & RSV (PCR) - Final Radiography Diagnostic Testing: Radiology Impression Chest X-Ray 09/04/25 15:39 IMPRESSION: No active cardiopulmonary disease. Reading Location: [facility]-1 Abdomen/Pelvis CT 09/04/25 15:56 IMPRESSION: 1. No acute findings in the abdomen or pelvis. 2. Probable hepatic and right renal cysts. 3. Cholelithiasis with no CT evidence of acute cholecystitis. 4. Moderate colonic stool burden suggesting constipation. Reading Location: [facility] Brain CT 09/04/25 15:56 IMPRESSION: No acute intracranial abnormality. Reading Location: [facility] Chest X-Ray 09/04/25 22:30 IMPRESSION: Right upper extremity PICC, tip at the superior cavoatrial junction. Reading Location: [facility] Physical Exam Const alert and no apparent distress Constitutional Narrative: Patient appears older than stated age General Appearance: well developed Orientation / Consciousness: awake HEENT normocephalic, head/scalp atraumatic and moist oral mucous membranes Eyes PERRL, EOMs intact bilaterally and conjunctivae normal Neck supple, no JVD, thyroid normal and no carotid bruits General: trachea midline Resp normal respiratory effort, no retractions, no use of accessory muscles and clear to auscultation bilaterally Auscultation: Negative for rales, rhonchi or wheezes Cardio regular rate, regular rhythm, S1 normal heart sound, S2 normal heart sound, no murmurs, no rub and no gallops GI normal to inspection, nondistended, normoactive bowel sounds, soft to palpation, non-tender and non-distended Extremity no clubbing, cyanosis or edema Skin no rashes or lesions noted General Skin Exam: no breakdown Neuro CN's II-XII intact bilaterally Neuro Narrative: Patient is awake but nonverbal Sensorium / Orientation: awake Psych Psych Narrative: Patient does not appear anxious Assessment & Plan Assessment/Plan (1) UTI (urinary tract infection): PLAN: Plan 1. Acute cystitis-continue IV antibiotics, patient will be seen by critical care #2 hypotension-etiology unclear at this point, patient is on low-dose pressors, continue IV fluids and try to wean pressors off #3 seizure disorder-patient is on phenobarbital and Depakote #4 intellectual impairment and developmental delay-complicates care, management, recovery, and prognosis #5 Marfan syndrome-complicates care, management, recovery, and prognosis Total clinical time spent by myself addressing the patient's medical issues, reviewing all of his data, and collaborating with patient's care team: 35 minutes Charges/Coding Visit Charges Inpatient E&M: 80387 Subs Hosp L2
[2025-09-05] MEDS: Potassium Chloride Oral Tablet 20 MEQ PO (07:42)
[2025-09-05] MEDS: Lactated Ringers 1,000 ML 150 ML IV ×3 (09:14→22:29)
--- NOTE | 2025-09-05 14:27 | CASEMGMT ---
SW Assessment: SW called pt mom, Jacki, for initial transition planning/care coordination assessment as pt is non-verbal at this time. Pt mom reports to be pt legal guardian; documentation requested for scan into chart. SW introduced self and role at [facility], pt voices understanding and consents to assessment. Care providers, pharmacy, and demographics verified/updated. Admitting Dx: Septic Shock, UTI PCP: [place] Specialists: Cardiology at [place], although mom reports that pt has not been for awhile. It is noted that pt was referred for cardiology at [facility] with no follow up as well. Dr Coronado, neurologist in [place]. Pt mom noted pt saw neuro no too long ago. Preferred Pharmacy: [facility] Insurance: [facility] Prescription Benefit: yes LNOK: Mom- Jacki. Mom reports that she is guardian as well; documentation requested. Living Arrangements: Pt lives with mom, sister Smita age 61, brother Estevan age 54, and a nephew age 27 in an apartment. Jacki reports 3 steps into home, but also reports that there is a ramp. Jacki reports pt bedroom is downstairs. Jacki reports no concerns with the condition of the home, reporting to have heat, no water leaks, no mold, denying any CAOH questions regarding home condition. SW inquired into EMS concerns regarding condition; Jacki denied. Jacki reports that they always have food and there are no concerns with meals for pt. ADLs: Jacki states that she cares for pt. Jacki reports that pt is full care and cannot even feed himself most times. Jacki reports pt stands for very short periods of time when she dresses him, reporting that pt used to be able to stand for longer. It is noted during hospitalization in 2022, that pt was furniture walking, able to walk stairs, and was much for functional with ADLs. Jacki reports that the other family in the home also assist. Jacki reports that the other family members are all independent and do not need assistance. Transportation: Jacki reports that dtr Smita in the home transports pt and there are other children not in the home who drive and can assist pt, as well as friends. Jacki denies concerns with transportation. DME: Jacki reports there is a tub in the bathroom, but pt has a tub bench.Jacki reports rails in bathroom. Jacki reports a BSC is available for pt use. Pt has a wheelchair for use in the home. Pt sleeps in a single, regular bed per Jacki. HHC/SNF: Jacki reports that pt used to have services through [facility] , but has not has services since 2022 when the agency informed her that they could not staff pt care. Jacki denies any other HHC. Jacki denies any SNF stays. Community Resources: Jacki reports that pt has services through , but reports that he had a transplant case managerbilingual manager and the new transplant case manager has not met pt. Jacki was uncertain when the last time a transplant case manager has seen pt. It is noted in 2022, that pt had a CM through [facility], Nicole Sheehan. Per EMS and ED documentation, there are concerns regarding living conditions and care of pt. See squad report and supporting documentation. Jacki denies any concerns, but is receptive to assistance in the home. GERONIMO called Donell Rico ([phone]) and left a voicemail requesting follow up. GERONIMO called SANTA Can ([phone]) and provided a refereral. Pamella reports that Jacki has a CM Cecilia, through [facility] as of May. Pamella reports prior involvement and will follow up. GERONIMO called FRANKIE PETIT ([phone]) and spoke with Vivian who took report of concerns. GERONIMO remains available to follow. TIERRA Luther
--- NOTE | 2025-09-05 14:50 | CASEMGMT ---
Discharge Planning A list of SNF providers including quality and resource use data and consistent with the patient's preferred geographic region, medical needs, and insurance network was created in CarePort Guide.? This list was provided to the SW. Tresa Hernandez Discharge Planning Asst.
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
--- NOTE | 2025-09-05 16:42 | CASEMGMT ---
Social Work- Pt mom came in to visit. SW updated n therapy recommendations. Mom agreeable. A list of SNF providers including quality and resource use data and consistent with the patient?s preferred geographic region, medical needs, and insurance network were provided from the CarePort Guide. SW to follow up Wednesday. TIERRA Luther
[2025-09-05] MEDS: Divalproex (ER) 500 MG Tablet 1500 MG PO (22:13)
[2025-09-06 02:31] VITALS: BP 96/78; PULSE 79; RESP 16; TEMP 37.1; O2SAT 98
[2025-09-06 04:16] VITALS: BMI 18.6
[2025-09-06] MEDS: Lactated Ringers 1,000 ML 150 ML IV (05:47)
--- NOTE | 2025-09-06 07:03 | PN.HOSP_ITS ---
Reason for Visit Chief Complaint: Less responsive/interactive, decreased intake. Subjective Subjective Patient seems to be nonverbal at baseline. No overnight issues. Plan is for SNF at discharge per case management documentation after discussion with family. Objective Data Objective Data Vital Signs: Vital Signs Temp Pulse Resp BP Pulse Ox O2 Del Method 98.7 F 79 16 96/78 98 Room Air 09/06/25 02:31 09/06/25 02:31 09/06/25 02:31 09/06/25 02:31 09/06/25 02:31 09/06/25 02:31 Oxygen Delivery Method Room Air Weight: 65.8 kg Body Mass Index (BMI) 18.6 Intake & Output: Intake and Output for Last 24 Hours 09/04/25 09/05/25 09/06/25 23:59 23:59 23:59 Intake Total 3550 / 3550 3743.42 / 3793.42 1050 / 1050 Output Total 1999 1875 / 2125 250 / 250 Balance 1550 / 1550 1868.42 / 1668.42 800 / 800 Lab / Micro Data 09/05/25 03:00 09/05/25 03:00 Micro: Microbiology 09/04/25 15:01 Urine, Catheterized Urine Culture - Preliminary GNR lactose business office assistant 09/04/25 20:55 Nasal Secretion MRSA (PCR) - Final Meth. resistant Staph. aureus 09/04/25 15:18 Mucosa - Nose SARS-CoV-2, Influenza & RSV (PCR) - Final Physical Exam Const alert and no apparent distress; Negative for healthy appearing Constitutional Narrative: Thin, middle-aged, white male, lying in bed, television is on, patient nonverbal, and appears older than stated age, does not look toxic HEENT head/scalp atraumatic and moist oral mucous membranes Head and Scalp: normocephalic Resp normal respiratory effort, no retractions, no use of accessory muscles and clear to auscultation bilaterally Auscultation: Negative for crackles, rhonchi or wheezes Cardio regular rate, regular rhythm, S1 normal heart sound, S2 normal heart sound, no murmurs, no rub, no gallops and no clicks GI normal to inspection, nondistended, normoactive bowel sounds, soft to palpation and non-tender GI Narrative: Abdomen is scaphoid Extremity no clubbing, cyanosis or edema Extremity Narrative: Decreased lean muscle mass, 2+ pedal and radial pulses Neuro Neuro Narrative: Contractures noted, neurological exam is difficult due to MRDD at baseline, patient is nonverbal Psych Psych Narrative: Appears calm Assessment & Plan Assessment/Plan (1) Acute dehydration: (2) Acute hypotension: (3) Hypovolemic shock: (4) UTI (urinary tract infection): (5) Hypophosphatemia: PLAN: Plan Acute hypotension secondary to hypovolemic shock - Sepsis was ruled out as patient did not meet SIRS criteria and had no evidence of endorgan damage other than hypotension - Appears hypotension is related to hypovolemia in the setting of decreased p.o. intake and poor nutritional status - Continue IV fluids but will decrease rate from 150 to 75 cc/h - Blood pressure has stabilized - Cultures are pending Acute complicated urinary tract infection secondary to E. coli - Organism does have some resistance pattern to ampicillin but is sensitive to ceftriaxone so we will continue ceftriaxone day 2 of 10 - Plan to discharge on Keflex to complete antibiotic course MRSA colonization - Nasal Bactroban ordered for 10 doses Hypophosphatemia - IV Phos replaced - Recheck in a.m. 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
[2025-09-06 08:00] VITALS: RESP 18
[2025-09-06 08:30] VITALS: BP 112/76; PULSE 69; RESP 16; TEMP 37.1; O2SAT 97
[2025-09-06] MEDS: Sodium Phosphate/Na Biphos 21 MMOL in 0.9% Normal Saline (250mL Bag) 250 ML 84 MMOL IV (09:16)
[2025-09-06] MEDS: Ensure Plus High Protein 120 ML LIQUID PO ×2 (09:27→12:29)
[2025-09-06] MEDS: Mupirocin Ointment 22gm Tube 1 APPLIC NASAL ×2 (09:29→23:08)
[2025-09-06 16:00] VITALS: BP 102/70; PULSE 80; RESP 16; RESP 18; TEMP 36.3; O2SAT 98
[2025-09-06] MEDS: Lactated Ringers 1,000 ML 75 ML IV (19:46)
[2025-09-06 22:48] VITALS: BP 102/63; PULSE 105; RESP 16; TEMP 36.9; O2SAT 94
[2025-09-06] MEDS: Divalproex (ER) 500 MG Tablet 1500 MG PO (23:08)
[2025-09-07 05:33] VITALS: BP 102/57; PULSE 81; RESP 16; TEMP 37.2; O2SAT 95
[2025-09-07 06:00] VITALS: BMI 19.8
[2025-09-07 07:09] LABS: Hematocrit 30.5 % (40-54); Hemoglobin 10.4 g/dL (13.0-16.5); Immature Granulocytes Count 0.020 X10^3/uL (0.0-0.0); Mean Corp Hgb Conc 34.1 g/dL (32-36); Mean Corpuscular Volume 93.0 fL (80-94); Mean Platelet Vol. 12.4 fl (6.2-12.0); NRBC Flagged by Analyzer 0 % (0-5); Platelet Count 285 K/mm3 (150-450); RBC Distribution Width CV 12.8 % (11.6-14.6); RBC Distribution Width SD 43.7 fl (35.1-43.9); Red Blood Count 3.28 M/mm3 (4.6-6.2); White Blood Count 6.5 K/mm3 (4.4-11.0)
--- NOTE | 2025-09-07 07:18 | PCM.PN.HOSP ---
Reason for Visit Chief Complaint: Less responsive/interactive, decreased intake. Subjective Subjective No issues overnight. Patient nonverbal at baseline but appears comfortable at this time. Is sleeping at the time my arrival to his room but does awaken. Objective Data Objective Data Vital Signs: Vital Signs Temp Pulse Resp BP Pulse Ox O2 Del Method 98.9 F 81 16 102/57 L 95 Room Air 09/07/25 05:33 09/07/25 05:33 09/07/25 05:33 09/07/25 05:33 09/07/25 05:33 09/07/25 05:33 Oxygen Delivery Method Room Air Weight: 70 kg Body Mass Index (BMI) 19.8 Intake & Output: Intake and Output for Last 24 Hours 09/05/25 09/06/25 09/07/25 23:59 23:59 23:59 Intake Total 3743.42 / 3793.42 3217.0 / 3217.0 Output Total 1875 / 2125 1850 / 1850 225 / 225 Balance 1868.42 / 1668.42 1367.0 / 1367.0 -225 / -225 Lab / Micro Data 09/07/25 05:49 09/07/25 05:49 Labs: Laboratory Results - last 24 hr 09/07/25 05:49: WBC 6.5, RBC 3.28 L, Hgb 10.4 L, Hct 30.5 L, MCV 93.0, MCH 31.7, MCHC 34.1, RDW Std Deviation 43.7, RDW Coeff of Bel 12.8, Plt Count 285, MPV 12.4 H, Immature Gran % (Auto) 0.300, Neut % (Auto) 41.9 L, Lymph % (Auto) 45.0 H, [place] % (Auto) 11.1 H, Eos % (Auto) 1.2, Baso % (Auto) 0.5, Absolute Neuts (auto) 2.7, Absolute Lymphs (auto) 2.91, Nucleated RBC % 0 Micro: Microbiology 09/04/25 15:18 Blood Culture (Wb) - Left Wrist Blood Culture - Preliminary No growth in 48 hours. 09/04/25 15:02 Blood Culture (Wb) - Right Hand Blood Culture - Preliminary No growth in 48 hours. 09/04/25 15:01 Urine, Catheterized Urine Culture - Final Escherichia coli 09/04/25 20:55 Nasal Secretion MRSA (PCR) - Final Meth. resistant Staph. aureus 09/04/25 15:18 Mucosa - Nose SARS-CoV-2, Influenza & RSV (PCR) - Final Physical Exam Const alert and no apparent distress; Negative for healthy appearing Constitutional Narrative: Thin, middle-aged, white male, sitting up in bed with both knees bent up, patient with eyes closed on arrival but opens eyes to verbal stimulus, patient nonverbal, and appears older than stated age, does not look toxic HEENT normocephalic, head/scalp atraumatic and moist oral mucous membranes Resp normal respiratory effort, no retractions, no use of accessory muscles and clear to auscultation bilaterally Auscultation: Negative for crackles, rales, rhonchi or wheezes Cardio regular rate, regular rhythm, S1 normal heart sound, S2 normal heart sound, no murmurs, no rub, no gallops and no clicks GI normal to inspection, nondistended, normoactive bowel sounds, soft to palpation, non-tender and non-distended GI Narrative: Abdomen is scaphoid, excellent bowel sounds Extremity no clubbing, cyanosis or edema Extremity Narrative: Decreased lean muscle mass, 2+ pedal and radial pulses Neuro Neuro Narrative: Contractures noted, neurological exam is difficult due to MRDD at baseline, patient is nonverbal Sensorium / Orientation: awake Psych Psych Narrative: Appears calm Assessment & Plan Assessment/Plan (1) Acute dehydration: (2) Acute hypotension: (3) Hypovolemic shock: (4) UTI (urinary tract infection): (5) Hypophosphatemia: PLAN: Plan Acute hypotension secondary to hypovolemic shock - Sepsis was ruled out as patient did not meet SIRS criteria and had no evidence of endorgan damage other than hypotension - Appears hypotension is related to hypovolemia in the setting of decreased p.o. intake and poor nutritional status - Blood pressures are stable so we will stop IV fluids to monitor how he does without volume repletion -Blood pressures are never all that robust and at baseline's appear to be in the low 90s to low 100s - Blood pressure has stabilized - Blood cultures are negative Acute complicated urinary tract infection secondary to E. coli - continue ceftriaxone day 3 of 10 - Plan to discharge on Keflex to complete antibiotic course if antibiotics are not completed by the time of discharge MRSA colonization - Nasal Bactroban ordered for 10 doses - Day 2 of 5 Hypophosphatemia - IV replaced again today as it was still low but improved - Repeat in a.m. 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
[2025-09-07 08:00] LABS: Anion Gap 6 (7-18); BUN 9 mg/dL (4-19); BUN/Creat Ratio 15.5 RATIO (10-20); Calcium,Total 7.8 mg/dL (7.6-11.0); Carbon Dioxide 24.7 mmol/L (20.0-29.0); Chloride 108 mmol/L (96-106); Estimated Creatinine Clearance 154.21 ml/min (50-250); Glucose 83 mg/dL (70-99); Magnesium 1.7 mg/dL (1.5-2.2); Potassium 3.8 mmol/L (3.5-5.1)
[2025-09-07 08:04] VITALS: BP 107/58; PULSE 80; RESP 16; TEMP 37.2; O2SAT 96
[2025-09-07] MEDS: Lactated Ringers 1,000 ML 75 ML IV (09:27)
[2025-09-07] MEDS: Sodium Phosphate/Na Biphos 15 MMOL in 0.9% Normal Saline (250mL Bag) 250 ML 125 MMOL IV (09:35)
[2025-09-07] MEDS: Mupirocin Ointment 22gm Tube 1 APPLIC NASAL ×2 (09:36→22:24)
[2025-09-07] MEDS: 0.9% Saline Lock 10 ML Syringe IV (09:53)
--- NOTE | 2025-09-07 11:09 | CASEMGMT ---
Social Work- received return call from Nicolecharu Madden, [facility] ([phone], fax: [phone]) who reports that she does still meet with pt. Nicole reports that she sees pt every 6 months, last appointment 06/07/25. Nicole reports that pt receives one hot meal per day plus 7 other meals/week for two meals a day total. Nicole reports that pt mom declines aide service, reporting that her son assists with pt care. Nicole reports that mom shares that pt is never alone. At the visit on 06/07/25, Nicole reports that pt was able to stand independently and sat EOB during visit. Nicole report that she documented pt maintained good eye contact and was able to verbalize 1-2 words. Nicole shared that mom reported that they had bed bug treatment ofelia for by her waiver services in May. When SW inquired into home conditions, Nicole noted that there is a strong smell of cat urine, but the kitchen and breezeway were clear- no hoarding conditions. Nicole reports that mom and pt share a bedroom and it was full, but fairly clear. Nicole reports the living room is closed off by a curtain, so she was unaware of the condition of that room. Nicole reports surprise by accounts of poor condition of pt, remarking that pt was disheveled at last visit, but functionally unremarkable. Nicole requests updates on d/c planning. TIERRA Luther
--- NOTE | 2025-09-07 12:07 | CASEMGMT ---
Addendum entered by Snady Becerril 09/07/25 13:31: GERONIMO called pt mom to follow up with list of HHC providers. SW left a message. SW checked pt room and mom was not present.GERONIMO remains available to follow. TIERRA Luther Original Note: Social Work- GERONIMO called pt mom to discuss SNF preferences. Pt mom is no longer agreeable to SNF, wanting pt to come home with HHC. SW discussed concerns regarding return home; pt mom reports that pt brother and nephew will assist with care and learn PT exercises to help pt with. GERONIMO inquired into aide services through [facility]; pt mom is agreeable to starting aide services with . GERONIMO called IBETH Rivera at , and notified of request for services. GERONIMO to provide HHC list to mom for selections. Hospitalist updated of intent to d/c home. SW to update DD following selection of HHC. GERONIMO remains available to follow. TIERRA Luther
--- NOTE | 2025-09-07 12:11 | CASEMGMT ---
Discharge Planning A list of HH providers including quality and resource use data and consistent with the patient's preferred geographic region, medical needs, and insurance network was created in CarePort Guide.? This list was provided to the SW. Tresa Hernandez Discharge Planning Asst.
--- NOTE | 2025-09-07 14:41 | CASEMGMT ---
Social Work- GERONIMO received a call from Nicole Sheehan who reports that it will be Wednesday until the process to get an aide in the home is started and can take a week. Nicole encouraged that if pt mother can not care for pt until that time, that a SNF may be more appropriate. GERONIMO attempted to call pt mother; GERONIMO left another voicemail. Pt mother is not in pt room for in-person notification. GERONIMO remains available to follow. TIERRA Luther
--- NOTE | 2025-09-07 15:46 | CASEMGMT ---
Addendum entered by Tresa Hernandez 09/07/25 16:08: [facility] declined d/t staffing. SW updated. Original Note: Discharge Planning HH referral sent via [facility] to [facility]. Tresa Hernandez DC Planning Asst.
--- NOTE | 2025-09-07 16:21 | CASEMGMT ---
Addendum entered by Sandy Becerril 09/07/25 16:51: [facility] declined referral. [facility] declined referral. [facility] pending review. [facility] accepted. Pt mom to be updated pending [facility] decision. TIERRA Luther Original Note: Social Work- SW met mother who came in to visit pt. Pt mother remains firm that she wants pt to return home with help. SW presented a list of [facility] providers including quality and resource use data and consistent with the patient?s preferred geographic region, medical needs, and insurance network were provided from the [facility]. Pt mother chose [facility], [facility] as top choices. GERONIMO notified [facility] of referral request. GERONIMO updated pt mom on conversation with IBETH Rivera; mom agreeable to assessment next week following d/c. GERONIMO updated hospitalist. Pt referral declined by [facility]. GERONIMO consulted CM clinical supervisor to discuss discharge planning timing due to concerns of finding [facility] with staffing to accept referral coupled with concerns at home. GERONIMO followed up with hospitalist who expressed that she does not plan to discharge until services are coordinated. [facility] pending. GERONIMO updated pt mom on status of referrals. Pt mom agreeable to referral to [facility] and [facility] as well. [facility] notified of referral requests. GERONIMO again spoke with mom regarding transport home and need to answer the phone for ambulance co to verify ability to transport home; pt mom agreeable and confirmed number listed on face sheet as best number. GERONIMO placed green sheet and transport on chart. Discharge readiness checklist completed. GERONIMO remains available to follow. TIERRA Luther
--- NOTE | 2025-09-07 16:21 | CASEMGMT ---
Discharge Planning HH referral sent via [facility] to LENNOX, Macario, and Tomás . Tresa Hernandez DC Planning Asst.
[2025-09-07 20:21] VITALS: BP 121/73; PULSE 87; RESP 16; TEMP 37.3; O2SAT 95
[2025-09-07] MEDS: Divalproex (ER) 500 MG Tablet 1500 MG PO (22:24)
[2025-09-08 03:00] VITALS: BP 109/67; PULSE 79; RESP 18; TEMP 37.2; O2SAT 96
[2025-09-08 06:00] VITALS: BMI 19.7
--- NOTE | 2025-09-08 07:41 | CASEMGMT ---
Addendum entered by Ashley Martin 09/08/25 10:40: Social Work [facility] did respond back to SW in [facility], they gave SW phone and fax. SW added this to the discharge readiness checklist. SW spoke w/physician, pt should be d/c today. SW called pt's mother, let her know that [facility] did accept pt and pt will be d/c today. Pt's mother is in agreement. SW let her know that we can set him up with transport around 3pm. Pt's mother agreeable to this. GERONIMO updated [facility] staff of anticipated discharge and to set up 3pm transport. KAYE Cavanaugh Original Note: Social Work It does seem pt was accepted both w/[facility] and [facility]. GERONIMO sent a message back to [facility] via [facility] to confirm, and find out the best way to contact them for a potential Wednesday discharge. GERONIMO will continue to follow. KAYE Cavanaugh
[2025-09-08 08:19] VITALS: BP 98/59; PULSE 88; RESP 18; TEMP 37.2; O2SAT 94
--- NOTE | 2025-09-08 11:10 | DS.PCM_ITS ---
Providers Date of Admission: 09/04/25 Date of Discharge: 09/08/25 Primary Care Physician: Dr. Parvin Callahan MD Consultations 09/04/25 18:14 Consult: Dispatcher Chief Coal Slurry / Pulmonary Medicine Routine Consulting Provider: Intensivists/Pulmonary Med Reason for Consult: Septic shock, UTI EMERGENT Consult: No MD Notified: Yes Date Notified: 09/04/25 Time Notified: 17:34 Method of Notification: Text Reason For Visit: SEPTIC SHOCK, UTI Diagnosis Discharge Diagnosis (1) Acute dehydration: Status: Acute Code(s): E86.0 - Dehydration (2) Acute hypotension: Status: Acute Code(s): I95.9 - Hypotension, unspecified (3) Hypovolemic shock: Status: Acute Code(s): R57.1 - Hypovolemic shock (4) UTI (urinary tract infection): Status: Acute Code(s): N39.0 - Urinary tract infection, site not specified (5) Hypophosphatemia: Status: Acute Code(s): E83.39 - Other disorders of phosphorus metabolism Plan Acute hypotension secondary to hypovolemic shock - Sepsis was ruled out as patient did not meet SIRS criteria and had no evidence of endorgan damage other than hypotension - Appears hypotension is related to hypovolemia in the setting of decreased p.o. intake and poor nutritional status - Blood pressures are stable so we will stop IV fluids to monitor how he does without volume repletion -Blood pressures are never all that robust and at baseline's appear to be in the low 90s to low 100s - Blood pressure has stabilized - Blood cultures are negative Acute complicated urinary tract infection secondary to E. coli - continue ceftriaxone day 3 of 10 - Plan to discharge on Keflex to complete antibiotic course if antibiotics are not completed by the time of discharge MRSA colonization - Nasal Bactroban ordered for 10 doses - Day 2 of 5 Hypophosphatemia - IV replaced again today as it was still low but improved - Repeat in a.m. 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 - Continue home lactulose MRDD - Complicates care, management, recovery and prognosis - Patient is nonverbal at baseline History of Marfan's - Follows regularly with cardiology - Has known dilation of the aortic root with last measurement at 4.9 cm - Recommend cardiology follow-up shortly after discharge Hypothyroidism - Continue home Synthroid Anxiety Plan continue home medication DVT prophylaxis - Continue enoxaparin CODE STATUS - DNR CCA with no intubation Medications at Discharge Home Medications clonazepam 0.5 mg tablet 0.5 mg PO BID ANXIETY 03/22/19 levothyroxine 75 mcg tablet 75 mcg PO DAILY THYROID 03/22/19 Divalproex Sodium [Divalproex Sodium Er] 1,500 mg PO QHS SEIZURES 04/24/20 multivitamin with minerals 1 tab PO DAILY SUPPLEMENT 04/24/20 phenobarbital 64.8 mg tablet 64.8 mg PO DAILY SEIZURES 04/24/20 potassium chloride 20 mEq tablet,extended release(part/cryst) 20 meq PO DAILY Check with primary doctor 12/31/22 lactulose 20 gram/30 mL oral solution 20 g (30 mL) PO TID 30 days #2,700 mL 01/06/23 cephalexin 250 mg capsule 250 mg PO BID #12 caps 09/08/25 mupirocin 2 % topical ointment 1 applic NASAL BID #15 grams 09/08/25 Hospital Course Procedures EKG and - (Chest x-ray x 2/CT abdomen pelvis/brain CT) Summary of Care Provided Minutes Spent on Discharge: 36 Hospital Course: Mr. Coffey is a 49-year-old white male who presented to the emergency department at [facility] 09/04/2025 with decreased mental status and decreased oral intake. Patient has a history of MRDD with a seizure disorder and Marfan syndrome associated with dilation of the aortic root. Patient is nonverbal at baseline. He lives at home with his mother and family and his mother reported that he had decreased mental status so she called EMS. At baseline the patient typically sits in a chair ambulates a bit and has minimal conversation however for several days prior to presentation he had not been moving much or eating, drinking or making much conversation. Patient had no known sick contacts. From EMS report there was concern about well for an Adult Protective Services was, tact at that time. The patient was noted to be extremely disheveled and soiled upon the arrival to the emergency department. Upon arrival to the emergency department he was moving but not verbally interactive. Vital signs on presentation showed temperature of 97.6, heart rate 74, blood pressure was 88/60, respiratory rate 16 and pulse ox 99% on room air. CBC showed no significant abnormalities. Coags were abnormal with an elevated INR at 1.7. We suspect this is nutritionally related. Chemistry panel showed a BUN of 6 and a serum creatinine of 0.55. Hepatic profile was unremarkable. Ammonia was 41.6, lactic acid was 1. Urinalysis was cloudy with specific gravity is 0.10, occult blood, nitrates and 3+ bacteria. Valproic acid level was 67. CT of the brain showed no acute intercranial abnormality. CT of the abdomen pelvis showed no acute intra-abdominal finding. There was moderate stool suggestive of constipation. Chest x-ray was unremarkable. Cultures were obtained the emergency department he was placed on broad-spectrum antibiotics. COVID/flu/RSV was negative. Patient was mated to the ICU due to persistent hypotension and despite volume resuscitation he did require low-dose Levophed to maintain hemodynamic stability. ICU was consulted. Overall suspicion was hypovolemic shock and likely not sepsis as he did not meet SIRS criteria or had any evidence of endorgan damage at the time of presentation other than hypotension. It was felt that his hypotension was related to hypovolemia due to decreased decreased p.o. intake and poor nutritional status. Gentle hydration was continued and Levophed was able to be weaned. He was found to have an acute urinary tract infection with pansensitive E. coli organism. He also was found to be a carrier of MRSA on his nasal swab. He was started on nasal Bactroban which she will continue at the time of discharge. He will also be treated for complicated urinary tract infection for total of 10 days of antibiotics. At the time of discharge she had received 4 days of antibiotics. He had some intermittent electrolyte abnormalities which were replaced and corrected by the time of discharge including hypokalemia and hypophosphatemia. Recommendations were for [facility] facility discharge however family declined and wanted to take him home with home health care. Home health care was arranged and able to be set up in satisfactory condition on 09/08/2025. The patient was able to be discharged home in stable condition at this time. Prescriptions for the nasal Bactroban and Keflex were sent to the local pharmacy at the time of discharge. No other medication changes were made prior to discharge. He should follow-up with his primary care physician within the next 2 weeks. Discharge diagnoses: Acute hypotension secondary to hypovolemic shock Acute complicated urinary tract infection secondary to E. coli MRSA colonization Hypokalemia Hypophosphatemia Pressure wound left hip-present on admission Generalized weakness Debility Seizure disorder MRDD History of Marfan's Dilated aortic root Hypothyroidism Anxiety Physical Exam Const alert and no apparent distress; Negative for healthy appearing Constitutional Narrative: Thin, middle-aged, white male, sitting up in bed relaxed and watching television, patient is the most alert he is looked during my entire care, patient nonverbal, and appears older than stated age, does not look toxic General Appearance: comfortable, well developed and contractures Orientation / Consciousness: awake Exam Limitations: other limitations Nutritional Appearance: thin HEENT normocephalic, head/scalp atraumatic and moist oral mucous membranes HEENT Narrative: No thrush Eyes conjunctivae normal Eyes Narrative: No scleral icterus Neck supple Neck Narrative: Trachea midline Resp normal respiratory effort, no retractions, no use of accessory muscles and clear to auscultation bilaterally Auscultation: Negative for crackles, rales, rhonchi or wheezes Cardio regular rate, regular rhythm, S1 normal heart sound, S2 normal heart sound, no murmurs, no rub, no gallops and no clicks GI normal to inspection, nondistended, normoactive bowel sounds, soft to palpation and non-tender GI Narrative: Abdomen is scaphoid Extremity no clubbing, cyanosis or edema Extremity Narrative: Significant decreased lean muscle mass, 2+ pedal and radial pulses, upper and lower extremity contractures noted Skin no jaundice, no petechiae and no mottling Skin Narrative: Skin is pale Neuro Neuro Narrative: Contractures noted, neurological exam is difficult due to MRDD at baseline, patient is nonverbal Sensorium / Orientation: awake Psych Psych Narrative: Appears calm Weight / BMI Weight Weight: 69.6 kg Body Mass Index (BMI) 19.7 ABG / Lab / Microbiology Data 09/07/25 05:49 09/07/25 05:49 Laboratory: Laboratory Results - last 24 hr 09/08/25 04:53: Phosphorus 2.8 Microbiology: Microbiology 09/04/25 15:18 Blood Culture (Wb) - Left Wrist Blood Culture - Preliminary No growth in 48 hours. 09/04/25 15:02 Blood Culture (Wb) - Right Hand Blood Culture - Preliminary No growth in 48 hours. 09/04/25 15:01 Urine, Catheterized Urine Culture - Final Escherichia coli 09/04/25 20:55 Nasal Secretion MRSA (PCR) - Final Meth. resistant Staph. aureus 09/04/25 15:18 Mucosa - Nose SARS-CoV-2, Influenza & RSV (PCR) - Final D/C Instructions Discharge Activity: Return to Normal Activity DC O2, CPAP, BIPAP Needs Home O2 Discharge instructions: No DC home with Oxygen: No Patient's Goals Of Care - F/U Goals Reviewed Goals of care reviewed with patient: Unable to assess Meaningful Use Info Meaningful Use Meaningful Use Diagnoses (Choose all that apply): None applicable Discharge Plan Admission Admit Date/Time: 09/04/25 17:33 Primary Reason for Your Visit: Altered mental status, decreased p.o. intake Attending Provider: Priyanka Gil Primary Care Provider: Parvin Callahan Consulting Providers: Ivonne Tavares; Mg Martin Discharge Orders/Prescriptions Prescriptions: New mupirocin 2 % Ointment 1 applic NASAL BID Qty: 15 0RF Protocol: *Topical Application Instructions APPLICATION INSTRUCTIONS: As above cephalexin 250 mg capsule 250 mg PO BID Qty: 12 0RF Continued levothyroxine 75 mcg tablet 75 mcg PO DAILY clonazepam 0.5 mg tablet 0.5 mg PO BID phenobarbital 64.8 mg tablet 64.8 mg PO DAILY Patient Comments: TAKE 1 TABLET BY MOUTH EVERY DAY multivitamin with minerals 1 EACH tablet 1 tab PO DAILY Divalproex Sodium [Divalproex Sodium Er] 500 MG Tab.Er.24h 1,500 mg PO QHS potassium chloride 20 MEQ tablet,ER particles/crystals 20 meq PO DAILY lactulose 20 gram/30 mL Solution 20 g PO TID 30 Days Qty: 2700 0RF Referrals / Follow Up: Parvin Callahan MD [Primary Care Provider, Internal Medicine] - Within 2 Weeks Disposition Disposition (needs filled in before D/C Order can be placed): Home Health Service Charges/Coding Visit Charges Inpatient E&M: 33419 Disch Hosp >30min
--- NOTE | 2025-09-08 13:21 | NURSING ---
Call placed to mother Jacki. Notified that ambulance service here to transport pt home.
--- NOTE | 2025-09-10 09:48 | CASEMGMT ---
Addendum entered by Sandy Becerril 09/10/25 13:16: GERONIMO called and left a voicemail for Smita, immigration investigator, as well as emailed updates on d/c plan and status of records request. GERONIMO called [facility]PS and left voicemail to update on d/c plans as well. TIERRA Luther Original Note: Social Work- GERONIMO received a call from FRANKIE Varner CM. GERONIMO updated on d/c timing and plan. Telly continues to follow with DAMASO credit reporter; pt medical records request remains pend. GERONIMO consulted SW instrument assembly supervisor. GERONIMO faxed d/c to Nicole Sheehan, [facility] . GERONIMO called Nicole and left a voicemail. TIERRA Luther
== END 2025-09-08 13:17 | disposition home health service (06) | DRG 872 ==
LOC: ED 17:29 → ICU 17:57 → MS3 09-05 16:18
PROVIDERS: Admitting Provider Family Medicine; Emergency Provider Emergency Medicine; PCP Internal Medicine; Visit Provider Internal Medicine
DX: R57.1 Hypovolemic shock (principal); Q87.40 Marfan syndrome, unspecified; N39.0 Urinary tract infection, site not specified; E83.39 Other disorders of phosphorus metabolism; Z66 Do not resuscitate; L89.229 Pressure ulcer of left hip, unspecified stage; I48.91 Unspecified atrial fibrillation; E86.0 Dehydration; G40.909 Epilepsy, unspecified, not intractable, without status epilepticus; E03.9 Hypothyroidism, unspecified; I10 Essential (primary) hypertension; I77.819 Aortic ectasia, unspecified site; D64.9 Anemia, unspecified; F41.9 Anxiety disorder, unspecified; I95.9 Hypotension, unspecified; E87.6 Hypokalemia; B96.20 Unspecified Escherichia coli [E. coli] as the cause of diseases classified elsewhere; R62.50 Unspecified lack of expected normal physiological development in childhood; Z22.322 Carrier or suspected carrier of Methicillin resistant Staphylococcus aureus; Z79.890 Hormone replacement therapy; R53.81 Other malaise; Z79.899 Other long term (current) drug therapy; F79 Unspecified intellectual disabilities
CPT/HCPCS: 36415; 36569; 51702; 70450; 71045; 74177; 80048; 80053; 80164; 81001; 82140; 83605; 83735; 84100; 85025; 85610; 85730; 87040; 87077; 87086; 87088; 87186; 87631; 87641; 93005; 97163; 97167; 97530; 97535; 99285; Q9967; A4216; J0696